=== PATIENT | male | born 1945 | race Caucasian/White ===

== ENCOUNTER 2017-07-16 14:04 | Inpatient (IN) | payer OTHER ==
[~2017-07-16] VITALS: Ht 172.7 cm; Wt 70.9 kg
[~2017-07-16 14:04] MED LIST: ASPI-232 PO; CLOP1TAB5 PO; LSN/2025 PO; METO-551 PO; NITR0.4S UT; OXYC-409 PO; ROSU20TA PO; RXC5 PO; TYLOTC500 PO
[2017-07-16] MEDS ORDERED: SODIUM CHLORIDE 0.9% 1000ML 1,000 ML IV STA (14:24)
--- NOTE | 2017-07-16 14:51 | DIAGNOSTIC IMAGING REPORT ---
CHEST ONE VIEW PORTABLE CLINICAL HISTORY: Weakness, shortness of breath. COMPARISON STUDY: 01/28/2014 FINDINGS: The heart is normal in size. There is no failure. There are increased left basal markings, atelectatic versus inflammatory. There are postsurgical changes of spinal rodding. The right lung is clear. There is no failure. There are no pleural effusions.[ IMPRESSION: Interstitial left basilar opacities, atelectatic versus infectious/inflammatory Electronically signed by: Tanner Ramirez M.D. 07/16/2017 2:50 PM Dictated Date/Time: 07/16/2017 2:49 PM
--- NOTE | 2017-07-16 15:21 | EMERGENCY ROOM VISIT NOTE ---
History Report prepared by Tr: Michael Harp Under the Supervision of: Dr. Jeremias Gil M.D. First contact with patient: 14:16 Chief Complaint: RESPIRATORY PROBLEMS Stated Complaint: CANT BREATHE, WEAK History of Present Illness The patient is a 71 year old male who presents to the Emergency Room with complaints of constant weakness that started two days ago. The patient reports he had back surgery a month ago at [facility] to replace broken rods in his back. He reports that the surgery was performed by Dr. Carcamo. The patient reports that he had a blood transfusion following the surgery. The patient states that he was put in [facility] following his surgery and was released two days ago. He reports that since his release he has been experiencing weakness and shortness of breath. The patient states that his weakness caused him to fall on his right side the other day. He reports that he was unable to get up due to his weakness and was crawling on his hands and knees. The patient states that since the fall he has been experiencing right sided chest pain. He reports that he has also been experiencing diarrhea, which he describes as "black tar". The patient reports that he has not been eating or drinking due to his diarrhea and weakness. He reports he has also been experiencing feet numbness. The patient states he recently had influenza, which he was put in isolation for 5 days for. He reports that he also recently had a pneumothorax, which he had surgery for. The patient states that his cut from his surgery needs to be checked. The patient denies LOC, headache, fevers, chills, diaphoresis, visual changes, neck pain, nausea, vomiting, abdominal pain, back pain, hematochezia, urinary symptoms, lymphadenopathy, rash, or other complaints. He reports he is taking Gabapentin, Plavix, a baby Aspirin, and Lisinopril. Source of History: patient Onset: two days ago Position: other (global) Symptom Intensity: 03/01 Quality: other (global) Timing: constant Associated Symptoms: + chest pain, + SOB, + melena, + diarrhea, + numbness Review of Systems See HPI for pertinent positives and negatives. A total of ten systems were reviewed and were otherwise negative. Past Medical & Surgical Medical Problems: (1) C. difficile colitis (2) Colitis (3) HTN (hypertension) Family History FH: CAD (coronary artery disease) FATHER Social History Smoking Status: Never Smoker Smokeless Tobacco Use: No Alcohol Use: heavy Occupation Status: retired Current/Historical Medications Scheduled Aspirin (Aspir-81), 81 MG PO Q2D Clopidogrel Bisulfate (Plavix), 75 MG PO QAM Fentanyl (Fentanyl), 25 MCG TD Q3D Gabapentin (Neurontin), 300 MG PO TID Metoprolol Tartrate (Lopressor), 50 MG PO BID Mupirocin Calcium (Bactroban Nasal), 1 GM PANKAJ BID Nitroglycerin (Nitrostat), 0.4 MG UT PRN Rosuvastatin Calcium (Crestor), 20 MG PO DAILY Scheduled PRN Acetaminophen (Tylenol), 1,000 MG PO DAILY PRN for PRN Clobetasol Propionate (Clobetasol Propionate), 1 APPL TOP DAILY PRN for scalp irritation Diazepam (Valium), 5 MG PO Q8 PRN for muscle spasms Oxycodone Hcl (Oxycodone Hcl), 20 MG PO Q6 PRN for Pain Sildenafil Citrate (Viagra), 50 MG PO DAILY PRN for erectile dysfunction Allergies Coded Allergies: No Known Allergies (Unverified , 07/16/17) Physical Exam Vital Signs Date Time Temp Pulse Resp B/P (MAP) Pulse Ox O2 Delivery O2 Flow Rate FiO2 07/16/17 17:02 130/58 97 Room Air 07/16/17 16:20 66 19 151/70 100 Room Air 07/16/17 15:25 73 22 138/76 99 Room Air 07/16/17 15:10 100 Room Air 07/16/17 15:09 100 Room Air 07/16/17 14:09 92 18 118/66 99 Room Air Physical Exam GENERAL: Awake, alert, tired-appearing, in no distress HENT: Normocephalic, atraumatic. Oropharynx unremarkable. EYES: Normal conjunctiva. Sclera non-icteric. NECK: Supple. No nuchal rigidity. FROM. No masses. RESPIRATORY: Clear to auscultation. No wheezes. CARDIAC: Normal rate. Normal rhythm. No murmurs. No rubs. Extremities warm and well perfused. Pulses equal. No JVD. GI: Soft, non-distended. Mild diffuse tenderness to palpation. No rebound or guarding. No masses. RECTAL: Dark stool. Heme negative. MUSCULOSKELETAL: Atraumatic. Chest examination reveals no tenderness. The back is symmetrical on inspection without obvious abnormality. There is no CVA tenderness to palpation. No joint edema. LOWER EXTREMITIES: Calves are equal size bilaterally and non-tender. No edema. No discoloration. NEURO: Normal sensorium. Subjective numbness in feet. 4/5 strength bilaterally. SKIN: No rash or jaundice noted. Medical Decision & Procedures ER Provider Diagnostic Interpretation: Radiology results as stated below per my review and radiologist interpretation: CHEST ONE VIEW PORTABLE CLINICAL HISTORY: Weakness, shortness of breath. COMPARISON STUDY: 01/28/2014 FINDINGS: The heart is normal in size. There is no failure. There are increased left basal markings, atelectatic versus inflammatory. There are postsurgical changes of spinal rodding. The right lung is clear. There is no failure. There are no pleural effusions.[ IMPRESSION: Interstitial left basilar opacities, atelectatic versus infectious/inflammatory Electronically signed by: Tanner Ramirez M.D. 07/16/2017 2:50 PM Dictated Date/Time: 07/16/2017 2:[address] ABD/PELVIS IV CONTRAST ONLY CLINICAL HISTORY: diffuse abd pain, weakness COMPARISON STUDY: May 14, 2015 TECHNIQUE: Following the IV administration of 100 mL of Optiray-320, CT scan of the abdomen and pelvis was performed from the lung bases to the proximal femurs. Images are reviewed in the axial, sagittal, and coronal planes. IV contrast was administered without complication. A dose lowering technique was utilized adhering to the principles of ALARA. CT DOSE: FINDINGS: Lower chest: There is a small left pleural effusion with left basilar atelectatic changes Liver: The contrast-enhanced liver is normal in size, contour, and attenuation. There is no intrahepatic biliary ductal dilatation. The hepatic veins and portal veins are patent. Gallbladder: Cholelithiasis Spleen: The spleen is elongated measuring 16 cm in length Pancreas: Unremarkable. Adrenal glands: Unremarkable. Kidneys: There is symmetric renal cortical enhancement. The kidneys are normal in size without hydronephrosis. Bowel: There are no transition zones indicate bowel obstruction. There is pandiverticulosis. There is mild diffuse colonic wall thickening most pronounced within the left and ascending colon. Peritoneum: There is no intraperitoneal free air or abdominal ascites. Vasculature: The abdominal aorta is normal in course and caliber. Adenopathy: There is a 12 mm hypodense structure located lateral to the right common iliac artery. This likely represents a hypodense lymph node Pelvic viscera: The prostate is mildly enlarged Skeletal structures: There are extensive postsurgical changes present within the spine IMPRESSION: 1. Diffuse colonic wall thickening consistent with a pancolitis 2. No evidence of bowel obstruction. No evidence of free air 3. Normal appendix 5. Cholelithiasis 6. Mild splenomegaly 7. Small left pleural effusion Electronically signed by: Tanner Ramirez M.D. 07/16/2017 5:10 PM Dictated Date/Time: 07/16/2017 5:[address] ANGIOGRAM OF THE CHEST CLINICAL HISTORY: Shortness of breath. Weakness. COMPARISON STUDY: No previous studies for comparison. TECHNIQUE: Following the IV administration of mL of Optiray-320, CT angiogram of the thorax was performed from the thoracic inlet to the lung bases utilizing the pulmonary embolus protocol. Images are reviewed in the axial, sagittal, and coronal planes. IV contrast was administered without complication. MIP imaging was performed. A dose lowering technique was utilized adhering to the principles of ALARA. CT DOSE: 860.47 mGy.cm FINDINGS: No pathologically enlarged axillary mediastinal or hilar lymph nodes were visualized. There was no evidence of thoracic aortic dilatation. There were no pulmonary artery filling defects to indicate acute pulmonary embolism. There is a small left pleural effusion. There are bibasilar airspace opacities left greater than right, likely atelectatic. There are subtle tree-in-bud opacities within the right upper lobe, likely inflammatory/postinflammatory. There are postsurgical changes present within the thoracic spine IMPRESSION: 1. No evidence of acute pulmonary embolism 2. Small left pleural effusion 3. Mild basilar atelectatic changes 4. Tree-in-bud opacities within the right upper lobe likely inflammatory/postinflammatory Electronically signed by: Tanner Ramirez M.D. 07/16/2017 4:42 PM Dictated Date/Time: 07/16/2017 4:26 PM Laboratory Results 07/16/17 15:17 Red Blood Count 3.47, Mean Corpuscular Volume 84.1, Mean Corpuscular Hemoglobin 27.1, Mean Corpuscular Hemoglobin Concent 32.2, Mean Platelet Volume 10.0, Neutrophils (%) (Auto) 86.3, Lymphocytes (%) (Auto) 7.4, Monocytes (%) (Auto) 5.7, Eosinophils (%) (Auto) 0.1, Basophils (%) (Auto) 0.1, Neutrophils # (Auto) 6.51, Lymphocytes # (Auto) 0.56, Monocytes # (Auto) 0.43, Eosinophils # (Auto) 0.01, Basophils # (Auto) 0.01 07/16/17 15:17 Test 07/16/17 15:15 07/16/17 15:17 Procalcitonin 0.09 ng/ml (0-0.5) White Blood Count 7.55 K/uL (4.8-10.8) Red Blood Count 3.47 M/uL (4.7-6.1) Hemoglobin 9.4 g/dL (14.0-18.0) Hematocrit 29.2 % (42-52) Mean Corpuscular Volume 84.1 fL (80-100) Mean Corpuscular Hemoglobin 27.1 pg (25-34) Mean Corpuscular Hemoglobin Concent 32.2 g/dl (32-36) Platelet Count 277 K/uL (130-400) Mean Platelet Volume 10.0 fL (7.4-10.4) Neutrophils (%) (Auto) 86.3 % Lymphocytes (%) (Auto) 7.4 % Monocytes (%) (Auto) 5.7 % Eosinophils (%) (Auto) 0.1 % Basophils (%) (Auto) 0.1 % Neutrophils # (Auto) 6.51 K/uL (1.4-6.5) Lymphocytes # (Auto) 0.56 K/uL (1.2-3.4) Monocytes # (Auto) 0.43 K/uL (0.11-0.59) Eosinophils # (Auto) 0.01 K/uL (0-0.5) Basophils # (Auto) 0.01 K/uL (0-0.2) RDW Standard Deviation 46.2 fL (36.4-46.3) RDW Coefficient of Variation 14.7 % (11.5-14.5) Immature Granulocyte % (Auto) 0.4 % Immature Granulocyte # (Auto) 0.03 K/uL (0.00-0.02) Prothrombin Time 12.7 SECONDS (9.0-12.0) Prothromb Time International Ratio 1.2 (0.9-1.1) Activated Partial Thromboplast Time 25.4 SECONDS (21.0-31.0) Partial Thromboplastin Ratio 1.0 Anion Gap 9.0 mmol/L (3-11) Estimated GFR () 115.0 Estimated GFR (Non- 99.2 BUN/Creatinine Ratio 16.0 (10-20) Calcium Level 8.8 mg/dl (8.5-10.1) Magnesium Level 2.4 mg/dl (1.8-2.4) Total Bilirubin 0.6 mg/dl (0.2-1) Direct Bilirubin 0.1 mg/dl (0-0.2) Aspartate Amino Transf (AST/SGOT) 11 U/L (15-37) Alanine Aminotransferase (ALT/SGPT) 17 U/L (12-78) Alkaline Phosphatase 94 U/L (45-117) Total Creatine Kinase 23 U/L (39-308) Creatine Kinase MB 0.6 ng/ml (0.5-3.6) Creatine Kinase MB Ratio 2.6 (0-3.0) Troponin I < 0.015 ng/ml (0-0.045) Total Protein 6.7 gm/dl (6.4-8.2) Albumin 2.9 gm/dl (3.4-5.0) Lipase 266 U/L (73-393) Thyroid Stimulating Hormone (TSH) 0.193 uIu/ml (0.300-4.500) Laboratory results reviewed by me Medications Administered Medications (Trade) Dose Ordered Sig/Ananth Route Start Time Stop Time Status Last Admin Dose Admin Sodium Chloride 1,000 ml @ 125 mls/hr Q8H STAT IV 07/16/17 14:24 07/16/17 19:56 DC 07/16/17 14:24 125 MLS/HR Metronidazole (Flagyl / Nss) 500 mg NOW STAT IV 07/16/17 17:23 07/16/17 17:25 DC 07/16/17 18:28 500 MG ECG Per My Interpretation Indication: weakness Rate (beats per minute): 77 Rhythm: normal sinus Findings: no acute ischemic change, no ectopy, other (Prolonged QT) ED Course 1422: The patient was evaluated in room C04. A complete history and physical exam was performed. 1424: Ordered Sodium Chloride 1000 ml @ 125 mls/hr IV. 1710: I reevaluated the patient and updated him on his results. He is waiting on his CT reports. 1723: Ordered Metronidazole 500 mg IV. 1735: I reevaluated the patient and updated him on his results. I discussed the treatment plan, which he agrees to. The patient will be further evaluated. 1738: I discussed the patients case with Kenney Su. She understands the patients condition and agrees to accept the patient. The patient will be further evaluated. Medical Decision Triage Nursing notes reviewed. The patient's presentation and history were concerning for weakness, breathing issues, and recent surgery. Etiologies such as metabolic, infection, hypo/hyperglycemia, electrolyte abnormalities, PE, anemia, cardiac sources, intracerebral event, toxicologic, neurologic, as well as others were entertained. The patient was evaluated. He noted having black stools that his rectal examination did not show any Hemoccult positive findings. The patient had abdominal tenderness. He seemed somewhat pale. Blood work, type and screen, urinalysis, imaging and ECG were ordered. The patient had a mild anemia but no leukocytosis on CBC. His cardiac panel was unremarkable. The patient had no evidence of PE or significant pneumonia on CT imaging of the chest. CT of the abdomen and pelvis did reveal a pancolitis. The patient was given a dose of IV Flagyl. He states that he had vancomycin for an unknown amount of time secondary to being diagnosed with C. difficile during his recent hospitalization. Consultation was made with the hospitalist service. The patient was evaluated in the Emergency Room for further management. Pro- calcitonin and lactate were added onto his labs at the request of the hospitalist service. These were unremarkable. Medication Reconcilliation Current Medication List: was personally reviewed by me Blood Pressure Screening Patient's blood pressure: Normal blood pressure Consults Time Called: 1737 Consulting Physician: Kenney Su Returned Call: 1738 I discussed the patients case with Kenney Su. She understands the patients condition and agrees to accept the patient. The patient will be further evaluated. Impression Primary Impression: Colitis Additional Impression: Weakness Scribe Attestation The scribe's documentation has been prepared under my direction and personally reviewed by me in its entirety. I confirm that the note above accurately reflects all work, treatment, procedures, and medical decision making performed by me. Departure Information Dispostion Being Evaluated By Hospitalist Referrals Tank Multani D.O. (PCP) Patient Instructions My [facility] Problem Qualifiers
[2017-07-16 15:35] LABS: BASO % 0.1 %; BASO ABS # 0.01 K/uL (0-0.2); EOS % 0.1 %; EOS ABS # 0.01 K/uL (0-0.5); HEMATOCRIT 29.2 % (42-52); HEMOGLOBIN 9.4 g/dL (14.0-18.0); IG# 0.03 K/uL (0.00-0.02); LYMPH % 7.4 %; LYMPH ABS # 0.56 K/uL (1.2-3.4); MEAN CELL VOLUME 84.1 fL (80-100); MEAN CORPUSCULAR HEMOGLOBIN 27.1 pg (25-34); MEAN CORPUSCULAR HGB CONC 32.2 g/dl (32-36); MONO % 5.7 %; MONO ABS # 0.43 K/uL (0.11-0.59); NEUT % 86.3 %; NEUT ABS # 6.51 K/uL (1.4-6.5); PLATELET COUNT 277 K/uL (130-400); RED CELL DISTRIBUTION WIDTH CV 14.7 % (11.5-14.5); RED CELL DISTRIBUTION WIDTH SD 46.2 fL (36.4-46.3); WHITE BLOOD COUNT 7.55 K/uL (4.8-10.8)
[2017-07-16 15:44] LABS: INR 1.2 (0.9-1.1); PTT PATIENT 25.4 SECONDS (21.0-31.0)
[2017-07-16 15:52] LABS: ALBUMIN 2.9 gm/dl (3.4-5.0); ALT/SGPT 17 U/L (12-78); BLOOD UREA NITROGEN 10 mg/dl (7-18); CALCIUM 8.8 mg/dl (8.5-10.1); CARBON DIOXIDE 29 mmol/L (21-32); CREATININE 0.64 mg/dl (0.60-1.40); GLUCOSE 94 mg/dl (70-99); LIPASE 266 U/L (73-393); POTASSIUM 3.3 mmol/L (3.5-5.1); SODIUM 141 mmol/L (136-145)
[2017-07-16 16:01] LABS: ALKALINE PHOSPHATASE 94 U/L (45-117); AST/SGOT 11 U/L (15-37); CKMB 0.6 ng/ml (0.5-3.6); TOTAL PROTEIN 6.7 gm/dl (6.4-8.2)
[2017-07-16] MEDS ORDERED: DIAZ-165 PO (16:01)
[2017-07-16] MEDS ORDERED: GABA-1218 PO (16:01)
[2017-07-16] MEDS ORDERED: MUPIOIN4 NAE (16:01)
[2017-07-16] MEDS ORDERED: [UNRECOGNIZED DRUG - CODE] TOP (16:01)
[2017-07-16] MEDS ORDERED: FNTTP25 TD (16:01)
[2017-07-16] MEDS ORDERED: OXYC20TA32 PO (16:01)
[2017-07-16] MEDS ORDERED: SILD100T PO (16:08)
--- NOTE | 2017-07-16 16:44 | DIAGNOSTIC IMAGING REPORT ---
CT ANGIOGRAM OF THE CHEST CLINICAL HISTORY: Shortness of breath. Weakness. COMPARISON STUDY: No previous studies for comparison. TECHNIQUE: Following the IV administration of mL of Optiray-320, CT angiogram of the thorax was performed from the thoracic inlet to the lung bases utilizing the pulmonary embolus protocol. Images are reviewed in the axial, sagittal, and coronal planes. IV contrast was administered without complication. MIP imaging was performed. A dose lowering technique was utilized adhering to the principles of ALARA. CT DOSE: 860.47 mGy.cm FINDINGS: No pathologically enlarged axillary mediastinal or hilar lymph nodes were visualized. There was no evidence of thoracic aortic dilatation. There were no pulmonary artery filling defects to indicate acute pulmonary embolism. There is a small left pleural effusion. There are bibasilar airspace opacities left greater than right, likely atelectatic. There are subtle tree-in-bud opacities within the right upper lobe, likely inflammatory/postinflammatory. There are postsurgical changes present within the thoracic spine IMPRESSION: 1. No evidence of acute pulmonary embolism 2. Small left pleural effusion 3. Mild basilar atelectatic changes 4. Tree-in-bud opacities within the right upper lobe likely inflammatory/postinflammatory Electronically signed by: Tanner Ramirez M.D. 07/16/2017 4:42 PM Dictated Date/Time: 07/16/2017 4:26 PM
[2017-07-16] MEDS ORDERED: OPTIRAY 320 IV PRN (16:45)
--- NOTE | 2017-07-16 17:11 | DIAGNOSTIC IMAGING REPORT ---
CT ABD/PELVIS IV CONTRAST ONLY CLINICAL HISTORY: diffuse abd pain, weakness COMPARISON STUDY: May 14, 2015 TECHNIQUE: Following the IV administration of 100 mL of Optiray-320, CT scan of the abdomen and pelvis was performed from the lung bases to the proximal femurs. Images are reviewed in the axial, sagittal, and coronal planes. IV contrast was administered without complication. A dose lowering technique was utilized adhering to the principles of ALARA. CT DOSE: FINDINGS: Lower chest: There is a small left pleural effusion with left basilar atelectatic changes Liver: The contrast-enhanced liver is normal in size, contour, and attenuation. There is no intrahepatic biliary ductal dilatation. The hepatic veins and portal veins are patent. Gallbladder: Cholelithiasis Spleen: The spleen is elongated measuring 16 cm in length Pancreas: Unremarkable. Adrenal glands: Unremarkable. Kidneys: There is symmetric renal cortical enhancement. The kidneys are normal in size without hydronephrosis. Bowel: There are no transition zones indicate bowel obstruction. There is pandiverticulosis. There is mild diffuse colonic wall thickening most pronounced within the left and ascending colon. Peritoneum: There is no intraperitoneal free air or abdominal ascites. Vasculature: The abdominal aorta is normal in course and caliber. Adenopathy: There is a 12 mm hypodense structure located lateral to the right common iliac artery. This likely represents a hypodense lymph node Pelvic viscera: The prostate is mildly enlarged Skeletal structures: There are extensive postsurgical changes present within the spine IMPRESSION: 1. Diffuse colonic wall thickening consistent with a pancolitis 2. No evidence of bowel obstruction. No evidence of free air 3. Normal appendix 5. Cholelithiasis 6. Mild splenomegaly 7. Small left pleural effusion Electronically signed by: Tanner Ramirez M.D. 07/16/2017 5:10 PM Dictated Date/Time: 07/16/2017 5:05 PM
[2017-07-16] MEDS ORDERED: METRONIDAZOLE 500MG / 100ML NSS IV STA (17:23)
[2017-07-16 19:45] VITALS: BP 147/60; PULSE 58; TEMP 36.6; O2SAT 100; Ht 172.7 cm; Wt 70.9 kg
[2017-07-16] MEDS ORDERED: ONDANSETRON INJ 2 MG/ML 2 ML VIAL IV PRN (20:00)
[2017-07-16 20:20] VITALS: BP 147/60; PULSE 57; TEMP 36.6; O2SAT 100
[2017-07-16] MEDS: SODIUM CHLORIDE 0.9% 1000ML 1,000 ML IV SCH (22:19)
[2017-07-16] MEDS: VANCOMYCIN HCL 250 MG/5 ML SOLN PO SCH (22:19)
[2017-07-16] MEDS: RASPBERRY SYRUP 5 ML UDP PO SCH (22:19)
[2017-07-16 23:40] VITALS: BP 120/62; PULSE 63; TEMP 37.1; O2SAT 97
[2017-07-17] MEDS: POTASSIUM CHLR 10 MEQ / WTR 10 MEQ in PREMIXED WATER 100 ML IV SCH ×3 (00:58→03:11)
--- NOTE | 2017-07-17 01:00 | History and Physical ---
History & Physical Date & Time of Service: Jul 16, 2017 at 00:54 Chief Complaint: C. Difficile Colitis, Colitis Primary Care Physician: Tank Multani D.O. History of Present Illness Source: patient This is 71 yo M with complicated medial hx of Extensive back surgery , prior hx of C diff, polyneuropathy peripheral artery disease , CAD pt was admitted to [facility] [place] [facility] from 06/13/17-06/22/17 for extensive back surgery by Dr Orlando and Dr Carcamo , pt developed C diff post op , completed oral vancomycin course was at ,[facility] 06/22/17-07/07/17 after being discharged form rehab , pt reports poor appetite , generalized weakness , fatigue for the past 2-3 days had dark loose watery stool 5-6 times a day , associated with abdominal cramps today pt sustained a fall while trying to get out of bed , felt that he does not have any strength , did not sustain and injury in the ER pt Continues to have liquid black stool complains of diffuse abdominal pain CT abdomen /pelvis shows -pancolitis Family History FH: CAD (coronary artery disease) FATHER Social History Smoking Status: Former Smoker Smokeless Tobacco Use: No Occupational Status: retired Immunizations History of Influenza Vaccine: Yes Influenza Vaccine Date: Feb 13, 2012 History of Tetanus Vaccine?: Unknown Tetanus Immunization Date: Mar 15, 2009 History of Pneumococcal: No History of Hepatitis B Vaccine: Unknown Allergies Coded Allergies: No Known Allergies (Unverified , 07/16/17) Home Medications Scheduled Aspirin (Aspir-81), 81 MG PO Q2D Clopidogrel Bisulfate (Plavix), 75 MG PO QAM Fentanyl (Fentanyl), 25 MCG TD Q3D Gabapentin (Neurontin), 300 MG PO TID Metoprolol Tartrate (Lopressor), 50 MG PO BID Mupirocin Calcium (Bactroban Nasal), 1 GM PANKAJ BID Nitroglycerin (Nitrostat), 0.4 MG UT PRN Rosuvastatin Calcium (Crestor), 20 MG PO DAILY Scheduled PRN Acetaminophen (Tylenol), 1,000 MG PO DAILY PRN for PRN Clobetasol Propionate (Clobetasol Propionate), 1 APPL TOP DAILY PRN for scalp irritation Diazepam (Valium), 5 MG PO Q8 PRN for muscle spasms Oxycodone Hcl (Oxycodone Hcl), 20 MG PO Q6 PRN for Pain Sildenafil Citrate (Viagra), 50 MG PO DAILY PRN for erectile dysfunction Review of Systems Constitutional: + chills, + weight loss (30 lbs since back surgery in 06/13/17 ) , + weakness, + fatigue Respiratory: + shortness of breath, + dyspnea on exertion, + dyspnea at rest Abdomen: + nausea, + vomiting, + diarrhea (dark liquid stool multiple episodes at night ), + GI bleeding (dark /tarry liquid stool ) Neurologic: + weakness, + numbness/tingling, + vertigo, + balance problems Psychiatric: + depression symptoms Endocrine: + fatigue, + excessive thirst Physical Exam Vital Signs Date Time Temp Pulse Resp B/P (MAP) Pulse Ox O2 Delivery O2 Flow Rate FiO2 07/16/17 23:40 37.1 63 22 120/62 (81) 97 Room Air 07/16/17 20:20 36.6 57 20 147/60 (89) 100 Room Air 07/16/17 19:45 36.6 58 20 147/60 100 Room Air 07/16/17 19:29 54 19 150/65 99 07/16/17 19:04 58 20 150/65 97 Room Air 07/16/17 17:02 130/58 97 Room Air 07/16/17 16:20 66 19 151/70 100 Room Air 07/16/17 15:25 73 22 138/76 99 Room Air 07/16/17 15:10 100 Room Air 07/16/17 15:09 100 Room Air 07/16/17 14:09 92 18 118/66 99 Room Air General Appearance: + pertinent finding (very cachectic /chronically ill appearing ) Head: normocephalic, atraumatic Eyes: sclerae normal ENT: + pertinent finding (very dry oral mucosa ) Neck: no carotid bruits Respiratory/Chest: lungs clear, normal breath sounds Cardiovascular: regular rate, rhythm, no edema Abdomen/GI: + pertinent finding (scaphoid, diffuse tenderness on palpation , hyperactive bowel sound ) Neurologic/Psych: no motor/sensory deficits, alert Skin: + pallor Diagnostics Laboratory Results Results Past 24 Hours Test 07/16/17 15:15 07/16/17 15:17 07/16/17 20:27 Range/Units Procalcitonin 0.09 0-0.5 ng/ml White Blood Count 7.55 4.8-10.8 K/uL Red Blood Count 3.47 4.7-6.1 M/uL Hemoglobin 9.4 14.0-18.0 g/dL Hematocrit 29.2 42-52 % Mean Corpuscular Volume 84.1 80-100 fL Mean Corpuscular Hemoglobin 27.1 25-34 pg Mean Corpuscular Hemoglobin Concent 32.2 32-36 g/dl Platelet Count 277 130-400 K/uL Mean Platelet Volume 10.0 7.4-10.4 fL Neutrophils (%) (Auto) 86.3 % Lymphocytes (%) (Auto) 7.4 % Monocytes (%) (Auto) 5.7 % Eosinophils (%) (Auto) 0.1 % Basophils (%) (Auto) 0.1 % Neutrophils # (Auto) 6.51 1.4-6.5 K/uL Lymphocytes # (Auto) 0.56 1.2-3.4 K/uL Monocytes # (Auto) 0.43 0.11-0.59 K/uL Eosinophils # (Auto) 0.01 0-0.5 K/uL Basophils # (Auto) 0.01 0-0.2 K/uL RDW Standard Deviation 46.2 36.4-46.3 fL RDW Coefficient of Variation 14.7 11.5-14.5 % Immature Granulocyte % (Auto) 0.4 % Immature Granulocyte # (Auto) 0.03 0.00-0.02 K/uL Prothrombin Time 12.7 9.0-12.0 SECONDS Prothromb Time International Ratio 1.2 0.9-1.1 Activated Partial Thromboplast Time 25.4 21.0-31.0 SECONDS Partial Thromboplastin Ratio 1.0 Sodium Level 141 136-145 mmol/L Potassium Level 3.3 3.5-5.1 mmol/L Chloride Level 103 98-107 mmol/L Carbon Dioxide Level 29 21-32 mmol/L Anion Gap 9.0 3-11 mmol/L Blood Urea Nitrogen 10 7-18 mg/dl Creatinine 0.64 0.60-1.40 mg/dl Estimated GFR () 115.0 Estimated GFR (Non- 99.2 BUN/Creatinine Ratio 16.0 10-20 Random Glucose 94 70-99 mg/dl Calcium Level 8.8 8.5-10.1 mg/dl Magnesium Level 2.4 1.8-2.4 mg/dl Total Bilirubin 0.6 0.2-1 mg/dl Direct Bilirubin 0.1 0-0.2 mg/dl Aspartate Amino Transf (AST/SGOT) 11 15-37 U/L Alanine Aminotransferase (ALT/SGPT) 17 12-78 U/L Alkaline Phosphatase 94 45-117 U/L Total Creatine Kinase 23 39-308 U/L Creatine Kinase MB 0.6 0.5-3.6 ng/ml Creatine Kinase MB Ratio 2.6 0-3.0 Troponin I < 0.015 0-0.045 ng/ml Total Protein 6.7 6.4-8.2 gm/dl Albumin 2.9 3.4-5.0 gm/dl Lipase 266 73-393 U/L Thyroid Stimulating Hormone (TSH) 0.193 0.300-4.500 uIu/ml Lactic Acid Level 1.1 0.4-2.0 mmol/L Microbiology Results 07/16/17 Blood Culture, Received Pending 07/16/17 Blood Culture, Received Pending Diagnostic Radiology CT ABDOMEN /PELVIS : IMPRESSION: 1. Diffuse colonic wall thickening consistent with a pancolitis 2. No evidence of bowel obstruction. No evidence of free air 3. Normal appendix 5. Cholelithiasis 6. Mild splenomegaly 7. Small left pleural effusion CT CHEST WITH CONTRAST : IMPRESSION: 1. No evidence of acute pulmonary embolism 2. Small left pleural effusion 3. Mild basilar atelectatic changes 4. Tree-in-bud opacities within the right upper lobe likely inflammatory/postinflammatory Impression Assessment and Plan DARK STOOL R/O GI BLEED -presents with multiple episodes of dark watery stool for past 2-3 days ordered for stool for heme occult , C.diff, stool culture hold Aspirin , Plavix ordered for IV Protonix /GI eval requested serial H&H ordered CT ABDOMEN FINDING OF TRUJILLO COLITIS /HX OF C DIFF presents with poor appetite , generalized weakness, diarrhea /abdominal pain -follow stool culture , C diff NPO stared empirically with PO Vancomycin /IV Flagyl GI eval requested HX OF CAD : S/p 3 drug eluting stent in RCA by Dr Dugan in 03/15/2011 no complain of chest pain hold aspirin /Plavix for concern of GI bleed /dark stool EXTENSIVE BACK SURGERY FOR CORRECTION OF KYPHOSIS : had prolong recovery at [facility] post op course was complicated by Pneumothorax on Left s/p chest tube placement C diff colitis surgical wound on back healing well cont PT/OT HTN : episode of hypotension DYSLIPIDEMIA : hold statin for NPO status -colitis /anemia /dark stool PERIPHERAL VASCULAR DISEASE Hold aspirin /Plavix for concern for GI bleed SEVERE PROTEIN CALORIE MALNUTRITION reports of loss of 30 lb in past 1.5 months reports of poor appetite , ongoing diarrhea BMI 23 Dietary consult requested FULL CODE DVT PROPHYLAXIS : Scd and teds avoid anticoagulation due to concern for GI bleed /anemia DISPOSITION: recently discharged from [facility] mentions of significant deconditioning /fall PT/OT eval requested Social service consult for discharge planning Level of Care Telemetry Advanced Directives Existing Living Will: No Existing Power of Floor Tiling Professional: No Resuscitation Status FULL RESUSCITATION VTE Prophylaxis VTE Risk Assessment Done? Y/N: Yes Risk Level: Moderate Given or contraindicated: T.E.D. Stockings, SCD's
[2017-07-17] MEDS ORDERED: FENTANYL 25 MCG/HR TDSY TD SCH (01:30)
[2017-07-17] MEDS ORDERED: NITROGLYCERIN 0.4 MG SL PER TAB CHARGE UT SCH (01:30)
[2017-07-17] MEDS ORDERED: DIAZEPAM 5MG TAB PO PRN (01:30)
[2017-07-17] MEDS ORDERED: PANTOprazole INJ 80 MG in DEXTROSE 5% 100ML IV SCH (01:30)
[2017-07-17] MEDS: METRONIDAZOLE / NSS 500 MG in PREMIXED NSS 100 ML IV SCH ×3 (02:00→17:45)
[2017-07-17] MEDS: PANTOprazole INJ 40 MG in DEXTROSE 5% 100ML IV SCH ×4 (03:12→20:08)
[2017-07-17 04:24] VITALS: BP 125/64; PULSE 66; TEMP 37; O2SAT 95
[2017-07-17] MEDS: VANCOMYCIN HCL 250 MG/5 ML SOLN PO SCH ×3 (05:37→17:47)
[2017-07-17] MEDS: RASPBERRY SYRUP 5 ML UDP PO SCH ×3 (05:37→17:45)
[2017-07-17 06:28] LABS: HEMATOCRIT 24.7 % (42-52); HEMOGLOBIN 7.9 g/dL (14.0-18.0); MEAN CELL VOLUME 83.7 fL (80-100); MEAN CORPUSCULAR HEMOGLOBIN 26.8 pg (25-34); MEAN PLATELET VOLUME 9.4 fL (7.4-10.4); PLATELET COUNT 237 K/uL (130-400); RED CELL DISTRIBUTION WIDTH CV 14.8 % (11.5-14.5); RED CELL DISTRIBUTION WIDTH SD 45.2 fL (36.4-46.3); WHITE BLOOD COUNT 6.19 K/uL (4.8-10.8)
[2017-07-17 07:03] LABS: ALBUMIN 2.3 gm/dl (3.4-5.0); CALCIUM 8.3 mg/dl (8.5-10.1); CREATININE 0.48 mg/dl (0.60-1.40)
[2017-07-17 07:07] LABS: PHOSPHORUS 2.6 mg/dl (2.5-4.9); TOTAL PROTEIN 5.5 gm/dl (6.4-8.2)
[2017-07-17 07:33] VITALS: BP 129/59; PULSE 61; TEMP 36.6; O2SAT 96
[2017-07-17] MEDS: SODIUM CHLORIDE 0.9% 1000ML 1,000 ML IV SCH (07:48)
[2017-07-17] MEDS: CHECK FENTANYL PATCH PLACEMENT SCH ×2 (07:49→16:01)
[2017-07-17] MEDS: MUPIROCIN 2% OINT 22 GM TUBE INTNAS SCH ×2 (07:51→20:06)
[2017-07-17] MEDS ORDERED: METOPROLOL TARTRATE 50 MG TAB PO SCH (09:00)
--- NOTE | 2017-07-17 09:27 | DIAGNOSTIC IMAGING REPORT ---
ABDOMEN 2 VIEWS CLINICAL HISTORY: Pancolitis. Evaluate for toxic megacolon COMPARISON STUDY: CT scan dated 07/16/2017 FINDINGS: There are extensive postsurgical changes present within the spine. There is no pathologic bowel dilatation. There is no free air. There are no transition zone to indicate bowel obstruction. IMPRESSION: Unremarkable bowel gas pattern. Electronically signed by: Tanner Ramirez M.D. 07/17/2017 9:26 AM Dictated Date/Time: 07/17/2017 9:25 AM
[2017-07-17] MEDS: FENTANYL PATCH REMOVE & WASTE SCH (09:41)
[2017-07-17] MEDS: FENTANYL 25 MCG/HR TDSY TD SCH (09:41)
[2017-07-17] MEDS: POTASSIUM CHLORIDE 20 MEQ TABCR PO SCH ×2 (10:41→17:46)
--- NOTE | 2017-07-17 11:24 | Progress Note ---
Medicine Progress Note Date & Time of Visit: Jul 17, 2017 at 11:09. Subjective 71 yo M s/p recent back surgery and rehab program presents with increased weakness and diarrhea after completing a course of vancomycin for c-diff colitis. -abd pain present -diarrhea present with TMTC BMs. -currently NPO -denies CP or SOB -very weak generally Objective Last 8 Hrs Date Time Temp Pulse Resp B/P (MAP) Pulse Ox O2 Delivery O2 Flow Rate FiO2 07/17/17 08:00 Room Air 07/17/17 07:33 36.6 61 18 129/59 (82) 96 Room Air 07/17/17 04:24 37.0 66 20 125/64 (84) 95 Room Air 07/17/17 04:00 Room Air Physical Exam: GEN: WNWD, in no acute distress, alert and appropriate HEENT: NC/AT, PERRL, normal sclerae, MMM CARDIO: reg rate, S1/2 heard without m/g/r LUNGS: CTA bilaterally, no crackles, rales or wheezes, good diaphragmatic excursion ABD: soft, diffuse general tenderness, non-distended, no rebound or guarding, + BS EXTREMITY: RP and DP palpable 2+ bilat, no LE swelling or edema, extremities are warm and well-perfused L ankle: decreased flexion/extension/circumduction. Appears slightly swollen , TTP on bilateral malleoli. R ankle: normal ROM and no TTP NEURO: CN 2-12 grossly intact, sensation intact throughout MUSC: 5/5 strength throughout, no gross focal deficits SKIN: warm and dry, well healed scar down entire length of back vertically. Laboratory Results: 07/17/17 06:17 07/17/17 06:17 Test 07/16/17 15:15 07/16/17 15:17 07/17/17 06:17 Procalcitonin 0.09 ng/ml (0-0.5) Immature Granulocyte % (Auto) 0.4 % White Blood Count 7.55 K/uL (4.8-10.8) Red Blood Count 3.47 M/uL (4.7-6.1) 2.95 M/uL (4.7-6.1) Hemoglobin 9.4 g/dL (14.0-18.0) Hematocrit 29.2 % (42-52) Mean Corpuscular Volume 84.1 fL (80-100) 83.7 fL (80-100) Mean Corpuscular Hemoglobin 27.1 pg (25-34) 26.8 pg (25-34) Mean Corpuscular Hemoglobin Concent 32.2 g/dl (32-36) 32.0 g/dl (32-36) Platelet Count 277 K/uL (130-400) Mean Platelet Volume 10.0 fL (7.4-10.4) 9.4 fL (7.4-10.4) Neutrophils (%) (Auto) 86.3 % Lymphocytes (%) (Auto) 7.4 % Monocytes (%) (Auto) 5.7 % Eosinophils (%) (Auto) 0.1 % Basophils (%) (Auto) 0.1 % Neutrophils # (Auto) 6.51 K/uL (1.4-6.5) Lymphocytes # (Auto) 0.56 K/uL (1.2-3.4) Monocytes # (Auto) 0.43 K/uL (0.11-0.59) Eosinophils # (Auto) 0.01 K/uL (0-0.5) Basophils # (Auto) 0.01 K/uL (0-0.2) Immature Granulocyte # (Auto) 0.03 K/uL (0.00-0.02) Prothrombin Time 12.7 SECONDS (9.0-12.0) Prothromb Time International Ratio 1.2 (0.9-1.1) Activated Partial Thromboplast Time 25.4 SECONDS (21.0-31.0) Partial Thromboplastin Ratio 1.0 Total Creatine Kinase 23 U/L (39-308) Creatine Kinase MB 0.6 ng/ml (0.5-3.6) Creatine Kinase MB Ratio 2.6 (0-3.0) Troponin I < 0.015 ng/ml (0-0.045) Lipase 266 U/L (73-393) Thyroid Stimulating Hormone (TSH) 0.193 uIu/ml (0.300-4.500) RDW Standard Deviation 45.2 fL (36.4-46.3) RDW Coefficient of Variation 14.8 % (11.5-14.5) Anion Gap 9.0 mmol/L (3-11) Est Creatinine Clear Calc Drug Dose 138.5 ml/min Estimated GFR () 129.4 Estimated GFR (Non- 111.7 BUN/Creatinine Ratio 16.8 (10-20) Lactic Acid Level 0.4 mmol/L (0.4-2.0) Calcium Level 8.3 mg/dl (8.5-10.1) Phosphorus Level 2.6 mg/dl (2.5-4.9) Magnesium Level 2.2 mg/dl (1.8-2.4) Total Bilirubin 0.7 mg/dl (0.2-1) Direct Bilirubin 0.2 mg/dl (0-0.2) Aspartate Amino Transf (AST/SGOT) 8 U/L (15-37) Alanine Aminotransferase (ALT/SGPT) 12 U/L (12-78) Alkaline Phosphatase 78 U/L (45-117) Total Protein 5.5 gm/dl (6.4-8.2) Albumin 2.3 gm/dl (3.4-5.0) Globulin 3.2 gm/dl (2.5-4.0) Albumin/Globulin Ratio 0.7 (0.9-2) Date/Time Source Procedure Growth Status 07/16/17 15:18 Blood Blood Culture Pending Received 07/17/17 08:30 Stool C.difficile Toxin B Gene (PCR) - Final Positive for C. difficile toxin B gene Complete Last 24 Hours Test 07/16/17 15:15 07/16/17 15:17 07/16/17 20:27 07/17/17 06:17 Procalcitonin 0.09 ng/ml White Blood Count 7.55 K/uL 6.19 K/uL Red Blood Count 3.47 M/uL 2.95 M/uL Hemoglobin 9.4 g/dL 7.9 g/dL Hematocrit 29.2 % 24.7 % Mean Corpuscular Volume 84.1 fL 83.7 fL Mean Corpuscular Hemoglobin 27.1 pg 26.8 pg Mean Corpuscular Hemoglobin Concent 32.2 g/dl 32.0 g/dl Platelet Count 277 K/uL 237 K/uL Mean Platelet Volume 10.0 fL 9.4 fL Neutrophils (%) (Auto) 86.3 % Lymphocytes (%) (Auto) 7.4 % Monocytes (%) (Auto) 5.7 % Eosinophils (%) (Auto) 0.1 % Basophils (%) (Auto) 0.1 % Neutrophils # (Auto) 6.51 K/uL Lymphocytes # (Auto) 0.56 K/uL Monocytes # (Auto) 0.43 K/uL Eosinophils # (Auto) 0.01 K/uL Basophils # (Auto) 0.01 K/uL RDW Standard Deviation 46.2 fL 45.2 fL RDW Coefficient of Variation 14.7 % 14.8 % Immature Granulocyte % (Auto) 0.4 % Immature Granulocyte # (Auto) 0.03 K/uL Prothrombin Time 12.7 SECONDS Prothromb Time International Ratio 1.2 Activated Partial Thromboplast Time 25.4 SECONDS Partial Thromboplastin Ratio 1.0 Sodium Level 141 mmol/L 142 mmol/L Potassium Level 3.3 mmol/L 3.0 mmol/L Chloride Level 103 mmol/L 109 mmol/L Carbon Dioxide Level 29 mmol/L 24 mmol/L Anion Gap 9.0 mmol/L 9.0 mmol/L Blood Urea Nitrogen 10 mg/dl 8 mg/dl Creatinine 0.64 mg/dl 0.48 mg/dl Estimated GFR () 115.0 129.4 Estimated GFR (Non- 99.2 111.7 BUN/Creatinine Ratio 16.0 16.8 Random Glucose 94 mg/dl 91 mg/dl Calcium Level 8.8 mg/dl 8.3 mg/dl Magnesium Level 2.4 mg/dl 2.2 mg/dl Total Bilirubin 0.6 mg/dl 0.7 mg/dl Direct Bilirubin 0.1 mg/dl 0.2 mg/dl Aspartate Amino Transf (AST/SGOT) 11 U/L 8 U/L Alanine Aminotransferase (ALT/SGPT) 17 U/L 12 U/L Alkaline Phosphatase 94 U/L 78 U/L Total Creatine Kinase 23 U/L Creatine Kinase MB 0.6 ng/ml Creatine Kinase MB Ratio 2.6 Troponin I < 0.015 ng/ml Total Protein 6.7 gm/dl 5.5 gm/dl Albumin 2.9 gm/dl 2.3 gm/dl Lipase 266 U/L Thyroid Stimulating Hormone (TSH) 0.193 uIu/ml Lactic Acid Level 1.1 mmol/L 0.4 mmol/L Est Creatinine Clear Calc Drug Dose 138.5 ml/min Phosphorus Level 2.6 mg/dl Globulin 3.2 gm/dl Albumin/Globulin Ratio 0.7 Date/Time Source Procedure Growth Status 07/16/17 15:18 Blood Blood Culture Pending Received 07/16/17 15:17 Blood Blood Culture Pending Received 07/17/17 08:30 Stool C.difficile Toxin B Gene (PCR) - Final Positive for C. difficile toxin B gene Complete Assessment & Plan 71 yo M s/p recent back surgery and rehab program presents with increased weakness and diarrhea after completing a course of vancomycin for c-diff colitis. 1. Anemia 2/2 possible acute blood loss vs recent surgery vs hemodilution vs chronic disease. No bleeding noted in stool but it was blackish in color. Abdominal pain is generalized and CT reveals pancolitis without signs of obstruction or perforation. Diarrhea has been severe for ten days per patient report. Placed on Vanc/Flagyl. Cont supportive care. Will stop IVF for now and allow clear liquid diet until GI able to evaluate. No scope to be likely performed on the weekend. 2. C-diff pancolitis-cont Vanc/Flagyl. Will request ID consult as this is severe and recurrent and will likely need to be followed as outpatient down the road. 3. CAD/PVD-ASA continued in setting of CAD with prior stents. Plavix held in setting of possible bleed. Decreasing dose of Lopressor in setting of bradycardia. Cont statin. 4. Ankle pain-acute in L with decreased ROM and pain to palpation of bilateral malleoli. Restarting oxy which was held on admission. Starting APAP 1000 q8h. If no improvement will restart his gabapentin which was helping him for this pain a couple of weeks ago. Ankle xray to examine joint space better. Presume OA with possible flare but may be gout or something other. 5. s/p back surgery-back pain is well controlled and wound is healing well without areas of erythema or drainage. Chest tube was placed intraoperatively for a PTX and was removed prior to discharge in late May. Post-op course also complicated by bout of c-diff for which he completed a two week course of vancomycin. PT/OT 6. Severe protein calorie nutrition related to recent surgery and recovery. Thirty lb weight loss. Tolerating PO. Apprec nutrition recs. 7. Hypokalemia likely related to diarrhea. Replace and repeat PRP in am. DVT proph-held in setting of poss bleed, SCDs. Full Code dispo-pending improvement in diarrhea and PT/OT evals. Pt lives alone at home. Poss rehab as transition to home again. DO Kenney Santos Hospitalist Consultants: GI ID Current Inpatient Medications: Current Inpatient Medications Medications (Trade) Dose Ordered Sig/Ananth Route Start Time Stop Time Status Last Admin Dose Admin Ioversol (Optiray 320) 100 ml UD PRN IV 07/16/17 16:45 07/20/17 16:44 Sodium Chloride 1,000 ml @ 125 mls/hr Q8H IV 07/16/17 20:00 08/15/17 19:59 07/17/17 07:48 125 MLS/HR Ondansetron HCl (Zofran Inj) 4 mg Q6H PRN IV 07/16/17 20:00 08/15/17 19:59 Vancomycin HCl (Vancomycin Oral Soln) 250 mg Q6 PO 07/17/17 00:00 07/27/17 00:00 07/17/17 05:37 250 MG Raspberry (Raspberry Syrup 5ml Cup) 5 ml Q6 PO 07/17/17 00:00 07/31/17 00:00 07/17/17 05:37 5 ML Metronidazole 500 mg/Prmx 100 ml @ 100 mls/hr Q8H IV 07/17/17 02:00 07/26/17 01:59 07/17/17 10:42 100 MLS/HR Diazepam (Valium Tab) 5 mg Q8 PRN PO 07/17/17 01:30 08/16/17 01:29 Metoprolol Tartrate (Lopressor Tab) 50 mg BID PO 07/17/17 09:00 08/16/17 08:59 07/17/17 07:51 50 MG Nitroglycerin (Nitrostat Tab) 0.4 mg PRN UT 07/17/17 01:30 08/16/17 01:29 Miscellaneous Information (Order Awaiting Action) 1 ea QS N/A 07/17/17 08:00 08/16/17 07:59 Mupirocin (Bactroban 2% Oint) 1 appln BID INTNAS 07/17/17 09:00 08/16/17 08:59 07/17/17 07:51 1 APPLN Pantoprazole Sodium 40 mg/ Dextrose 100 ml @ 20 mls/hr Q5H IV 07/17/17 01:45 08/16/17 01:44 07/17/17 07:48 20 MLS/HR Fentanyl (Duragesic Patch) 25 mcg Q3D TD 07/17/17 09:00 07/31/17 08:59 07/17/17 09:41 25 MCG Miscellaneous (Fentanyl Patch Remove & Waste) 1 ea Q3D N/A 07/17/17 08:59 08/16/17 08:58 07/17/17 09:41 1 EA Miscellaneous Information (Check Fentanyl Patch Placement) 1 ea QS N/A 07/17/17 08:00 08/16/17 07:59 07/17/17 07:49 1 EA Potassium Chloride (Klor-Con Tab) 40 meq Q6H PO 07/17/17 09:30 07/17/17 15:31 07/17/17 10:41 40 MEQ
[2017-07-17 11:31] VITALS: BP 139/63; PULSE 48; TEMP 36.7; O2SAT 98
--- NOTE | 2017-07-17 12:02 | DIAGNOSTIC IMAGING REPORT ---
L ANKLE MIN 3 VIEWS ROUTINE CLINICAL HISTORY: Left ankle pain and diminished range of motion COMPARISON: None. DISCUSSION: No acute fractures or dislocations are visualized. There is a linear bony density adjacent to medial malleolar tip. This is likely old. IMPRESSION: No acute fractures or dislocations identified. Electronically signed by: Tanner Ramirez M.D. 07/17/2017 12:00 PM Dictated Date/Time: 07/17/2017 11:59 AM
[2017-07-17] MEDS: OXYCODONE HCL IR 5 MG TAB (IMMEDIATE RELEASE) PO SCH ×2 (13:15→20:09)
[2017-07-17] MEDS: ASPIRIN 81 MG ECTAB PO SCH (13:15)
[2017-07-17] MEDS: ACETAMINOPHEN 500 MG TAB PO SCH ×2 (13:15→20:10)
[2017-07-17] MEDS: ROSUVASTATIN CALCIUM 20 MG TAB PO SCH (13:15)
--- NOTE | 2017-07-17 14:28 | GASTROINTESTINAL CONSULTATION ---
DATE OF CONSULTATION: 07/17/2017 REFERRED BY: Keyona Mercado MD I was asked by Dr. Mercado to consult on this gentleman because of diarrhea and colitis and possible C. diff. HISTORY OF PRESENT ILLNESS: The patient is a 71-year-old who had extensive back surgery in May at [facility]. He developed postop C. diff and went to rehab at [facility] between the end of May and the middle of June. He states that since leaving rehab he has had worsening dark loose stools and abdominal cramping, and eventually because of diffuse abdominal pain and his continued bouts of severe diarrhea, he came to the Emergency Room and CT scan showed pancolitis and stool came back today positive for C. diff. He does not give a history of any recent antibiotics since his first bout of C. diff during his back surgery. He states since coming in yesterday and receiving p.o. vancomycin and IV Flagyl, his belly feels much better. He then states he has had a little bit less stooling. PAST MEDICAL HISTORY: I reviewed his medical records and past medical history and his past medical history is significant for what is already mentioned as well as hypertension. FAMILY HISTORY: Negative for gastrointestinal disease. SOCIAL HISTORY: Significant for being a former smoker, but no alcohol abuse. ALLERGIES: He denies any drug allergies. OUTPATIENT MEDICATIONS: Include baby aspirin, Plavix, fentanyl p.r.n., Neurontin, Lopressor, Crestor. REVIEW OF SYSTEMS: As above, otherwise he has had some weight loss and failure to thrive. Since his surgery, he has had increased weakness. He is very fatigued. He denies any chest pain or productive cough, but he does have poor exertional tolerance and easily gets short of breath. He did have some associated nausea with his abdominal pain, but no vomiting. He denies any recent rashes, icterus, or jaundice. He has had no change in vision or hearing. He denies any joint swelling. He has had no dysuria. He denies any history of seizures. He does state he is a little bit depressed because he has been so sick. PHYSICAL EXAMINATION: GENERAL: Reveals a gentleman lying in bed, appearing rather comfortable. VITAL SIGNS: Temperature is 36.7, pulse is 48, blood pressure is 139/63. SKIN: Anicteric. HEENT: Eyes show anicteric sclerae. He has a little bit of bitemporal wasting. Mouth is slightly dry, but clear of lesions. NECK: Supple. CHEST: Clear. HEART: Slightly bradycardic to regular. ABDOMEN: Soft. He has some mild diffuse tenderness to deep palpation, but he has bowel sounds that are present with no rebound and no masses. EXTREMITIES: Thin, but with fair distal pulses. NEUROLOGIC: He is alert and oriented x3 and grossly intact. LABORATORY DATA: Show a white blood cell count of 7.5 on admission with a hemoglobin of 9.4 and a platelet count of 277,000. Stool for C. diff was positive today. Liver enzymes were normal and imaging CAT scan showed pancolitis, but no evidence of megacolon or free air. IMPRESSION AND PLAN: Recurrent Clostridium difficile versus Clostridium difficile that was never completely treated; it is difficult to ascertain this. I agree with p.o. vancomycin and IV Flagyl, but at this point given his pancolitis that I considered this is a severe case of Clostridium difficile. It appears that he is already feeling better, though I agree that it would be helpful to have infectious disease weigh in on length of treatment, which I think should be at least 2 weeks and whether or not he needs a taper at the end of this. Continue to follow his belly exams.
[2017-07-17 15:25] VITALS: BP 111/68; PULSE 59; TEMP 36.6; O2SAT 95
--- NOTE | 2017-07-17 15:57 | Medical Consult ---
Consultation Date of Consultation: Jul 17, 2017. Attending Physician: Marsha Rivera DO Reason for Consultation: Recurrent C difficile colitis History of Present Illness 71-year-old male with coronary disease and hypertension who underwent extensive lumbar surgery in May, complicated by C difficile colitis treated with oral vancomycin with resolution. He subsequently was transferred to [facility] for rehab, and over the last several days has developed progressively worsening diarrhea and abdominal pain. He was brought back to emergency room where he was found to have evidence of pancolitis on CT scan of abdomen, read by me, and C difficile PCR positive. Patient has been started on oral vancomycin and IV metronidazole with some improvement. Currently is afebrile and hemodynamically stable. Complaining of left ankle pain, currently 8/10 in intensity. Blood cultures are no growth so far. Past Medical/Surgical History Medical Problems: (1) Colitis Status: Acute (2) Weakness Status: Acute Medical Problems: (1) C. difficile colitis (2) Colitis (3) HTN (hypertension) Surgical history: Back surgery Family History FH: CAD (coronary artery disease) FATHER Social History Smoking Status: Former Smoker Smokeless Tobacco Use: No Occupation Status: retired Allergies Coded Allergies: No Known Allergies (Unverified , 07/16/17) Current Inpatient Medications Current Inpatient Medications Medications (Trade) Dose Ordered Sig/Ananth Route Start Time Stop Time Status Last Admin Dose Admin Ioversol (Optiray 320) 100 ml UD PRN IV 07/16/17 16:45 07/20/17 16:44 Ondansetron HCl (Zofran Inj) 4 mg Q6H PRN IV 07/16/17 20:00 08/15/17 19:59 Vancomycin HCl (Vancomycin Oral Soln) 250 mg Q6 PO 07/17/17 00:00 07/27/17 00:00 07/17/17 13:16 250 MG Raspberry (Raspberry Syrup 5ml Cup) 5 ml Q6 PO 07/17/17 00:00 07/31/17 00:00 07/17/17 05:37 5 ML Metronidazole 500 mg/Prmx 100 ml @ 100 mls/hr Q8H IV 07/17/17 02:00 07/26/17 01:59 07/17/17 10:42 100 MLS/HR Diazepam (Valium Tab) 5 mg Q8 PRN PO 07/17/17 01:30 08/16/17 01:29 Nitroglycerin (Nitrostat Tab) 0.4 mg PRN UT 07/17/17 01:30 08/16/17 01:29 Miscellaneous Information (Order Awaiting Action) 1 ea QS N/A 07/17/17 08:00 08/16/17 07:59 Mupirocin (Bactroban 2% Oint) 1 appln BID INTNAS 07/17/17 09:00 08/16/17 08:59 07/17/17 07:51 1 APPLN Pantoprazole Sodium 40 mg/ Dextrose 100 ml @ 20 mls/hr Q5H IV 07/17/17 01:45 08/16/17 01:44 07/17/17 07:48 20 MLS/HR Fentanyl (Duragesic Patch) 25 mcg Q3D TD 07/17/17 09:00 07/31/17 08:59 07/17/17 09:41 25 MCG Miscellaneous (Fentanyl Patch Remove & Waste) 1 ea Q3D N/A 07/17/17 08:59 08/16/17 08:58 07/17/17 09:41 1 EA Miscellaneous Information (Check Fentanyl Patch Placement) 1 ea QS N/A 07/17/17 08:00 08/16/17 07:59 07/17/17 07:49 1 EA Aspirin (Ecotrin Tab) 81 mg Q2D@0900 PO 07/17/17 13:00 08/16/17 12:59 07/17/17 13:15 81 MG Rosuvastatin Calcium (Crestor Tab) 20 mg DAILY PO 07/17/17 13:00 08/16/17 12:59 07/17/17 13:15 20 MG Oxycodone HCl (Roxicodone Immediate Rel Tab) 20 mg TID PO 07/17/17 14:00 07/31/17 13:59 07/17/17 13:15 20 MG Acetaminophen (Tylenol Tab) 1,000 mg Q8 PO 07/17/17 14:00 08/16/17 13:59 07/17/17 13:15 1,000 MG Metoprolol Tartrate (Lopressor Tab) 25 mg BID PO 07/17/17 21:00 08/16/17 20:59 Review of Systems Constitutional: + weakness, + fatigue, No fever Eyes: No problem reported ENT: No problem reported Respiratory: No problem reported Cardiovascular: No problem reported Abdomen: + pain, + diarrhea Musculoskeletal: + joint pain Genitourinary - Male: No problem reported Neurologic: No problem reported Psychiatric: No problem reported Endocrine: No problem reported Hematologic / Lymphatic: No problem reported Integumentary: No problem reported Allergic / Immunologic: No problem reported Physical Exam Date Time Temp Pulse Resp B/P (MAP) Pulse Ox O2 Delivery O2 Flow Rate FiO2 07/17/17 15:25 36.6 59 22 111/68 (82) 95 Room Air 07/17/17 12:00 Room Air 07/17/17 11:31 36.7 48 18 139/63 (88) 98 Room Air 07/17/17 08:00 Room Air 07/17/17 07:33 36.6 61 18 129/59 (82) 96 Room Air 07/17/17 04:24 37.0 66 20 125/64 (84) 95 Room Air 07/17/17 04:00 Room Air 07/17/17 00:00 Room Air 07/16/17 23:40 37.1 63 22 120/62 (81) 97 Room Air 07/16/17 20:20 36.6 57 20 147/60 (89) 100 Room Air 07/16/17 19:45 36.6 58 20 147/60 100 Room Air 07/16/17 19:29 54 19 150/65 99 07/16/17 19:04 58 20 150/65 97 Room Air 07/16/17 17:02 130/58 97 Room Air 07/16/17 16:20 66 19 151/70 100 Room Air General Appearance: WD/WN, no apparent distress Head: normocephalic, atraumatic Eyes: normal inspection, EOMI, sclerae normal ENT: normal ENT inspection, hearing grossly normal, pharynx normal Neck: supple, no adenopathy, thyroid normal, trachea midline Respiratory/Chest: chest non-tender, lungs clear, normal breath sounds, no respiratory distress Cardiovascular: regular rate, rhythm, no gallop, no murmur Abdomen/GI: normal bowel sounds, soft, no organomegaly, + tenderness, + distended Back: normal inspection, no CVA tenderness Extremities/Musculoskelatal: no calf tenderness, normal capillary refill, + pertinent finding (Left ankle swelling) Neurologic/Psych: alert, oriented x 3 Skin: normal color, warm/dry, no rash Lymphatic: no adenopathy Laboratory Results Date/Time Source Procedure Growth Status 07/17/17 08:30 Stool C.difficile Toxin B Gene (PCR) - Final Positive for C. difficile toxin B gene Complete Last 24 Hours Test 07/16/17 20:27 07/17/17 06:17 Lactic Acid Level 1.1 mmol/L 0.4 mmol/L White Blood Count 6.19 K/uL Red Blood Count 2.95 M/uL Hemoglobin 7.9 g/dL Hematocrit 24.7 % Mean Corpuscular Volume 83.7 fL Mean Corpuscular Hemoglobin 26.8 pg Mean Corpuscular Hemoglobin Concent 32.0 g/dl RDW Standard Deviation 45.2 fL RDW Coefficient of Variation 14.8 % Platelet Count 237 K/uL Mean Platelet Volume 9.4 fL Sodium Level 142 mmol/L Potassium Level 3.0 mmol/L Chloride Level 109 mmol/L Carbon Dioxide Level 24 mmol/L Anion Gap 9.0 mmol/L Blood Urea Nitrogen 8 mg/dl Creatinine 0.48 mg/dl Est Creatinine Clear Calc Drug Dose 138.5 ml/min Estimated GFR () 129.4 Estimated GFR (Non- 111.7 BUN/Creatinine Ratio 16.8 Random Glucose 91 mg/dl Calcium Level 8.3 mg/dl Phosphorus Level 2.6 mg/dl Magnesium Level 2.2 mg/dl Total Bilirubin 0.7 mg/dl Direct Bilirubin 0.2 mg/dl Aspartate Amino Transf (AST/SGOT) 8 U/L Alanine Aminotransferase (ALT/SGPT) 12 U/L Alkaline Phosphatase 78 U/L Total Protein 5.5 gm/dl Albumin 2.3 gm/dl Globulin 3.2 gm/dl Albumin/Globulin Ratio 0.7 Patient Name: CHINO ROBBINS Unit Number: [id number] Dictated: 07/16/171704 Transcribed: 07/16/171704 ARG Printed Date/Time: [~ rep prt dt]/[~ rep prt tm] [~ rep ct labl] - [~ rep ct ivnm] [facility] [place] [address] Dictated: 07/16/171704 Transcribed: 02/24/18 1705 ARG Printed Date/Time: [~ rep prt dt]/[~ rep prt tm] [~ rep ct labl] - [~ rep ct ivnm] CT ABD/PELVIS IV CONTRAST ONLY CLINICAL HISTORY: diffuse abd pain, weakness COMPARISON STUDY: May 14, 2015 TECHNIQUE: Following the IV administration of 100 mL of Optiray-320, CT scan of the abdomen and pelvis was performed from the lung bases to the proximal femurs. Images are reviewed in the axial, sagittal, and coronal planes. IV contrast was administered without complication. A dose lowering technique was utilized adhering to the principles of ALARA. CT DOSE: FINDINGS: Lower chest: There is a small left pleural effusion with left basilar atelectatic changes Liver: The contrast-enhanced liver is normal in size, contour, and attenuation. There is no intrahepatic biliary ductal dilatation. The hepatic veins and portal veins are patent. Gallbladder: Cholelithiasis Spleen: The spleen is elongated measuring 16 cm in length Pancreas: Unremarkable. Adrenal glands: Unremarkable. Kidneys: There is symmetric renal cortical enhancement. The kidneys are normal in size without hydronephrosis. Bowel: There are no transition zones indicate bowel obstruction. There is pandiverticulosis. There is mild diffuse colonic wall thickening most pronounced within the left and ascending colon. Peritoneum: There is no intraperitoneal free air or abdominal ascites. Vasculature: The abdominal aorta is normal in course and caliber. Adenopathy: There is a 12 mm hypodense structure located lateral to the right common iliac artery. This likely represents a hypodense lymph node Pelvic viscera: The prostate is mildly enlarged Skeletal structures: There are extensive postsurgical changes present within the spine IMPRESSION: 1. Diffuse colonic wall thickening consistent with a pancolitis 2. No evidence of bowel obstruction. No evidence of free air 3. Normal appendix 5. Cholelithiasis 6. Mild splenomegaly 7. Small left pleural effusion Electronically signed by: Tanner Ramirez M.D. 07/16/2017 5:10 PM Dictated Date/Time: 07/16/2017 5:05 PM The status of this report is Signed. Draft = Not yet reviewed or approved by Radiologist. Signed = Reviewed and approved by Radiologist. <AttendingPhy></AttendingPhy> <FamilyPhy>Tank Multani D.O.</FamilyPhy> < PrimaryPhy>Tank Multani D.O.</PrimaryPhy> <UnitNumber>[id number]</UnitNumber> <VisitNumber>[id number]</VisitNumber> <PatientName>CHINO ROBBINS</PatientName > <DateOfBirth>1945</DateOfBirth> <Location>[facility]</Location> <ServiceDate> 07/16/17</ServiceDate> <MNE>ESINDI</MNE> <OrderingPhy>Jeremias Gil MD</ OrderingPhy> <OrderingPhyMNE>f rep ord dr nails</OrderingPhyMNE> <DictatingPhyMNE> f rep dict dr nails</DictatingPhyMNE> <CCListMNE>f rep ct mne</CCListMNE> < AdmittingPhyMNE>f pt admit dr nails</AdmittingPhyMNE> <AttendingPhyMNE>f pt attend dr nails</AttendingPhyMNE> <ConsultingPhyMNE>f pt consult dr nails</ConsultingPhyMNE> <FamilyPhyMNE>f pt fam dr nails</FamilyPhyMNE> <OtherPhyMNE>f pt other dr nails</OtherPhyMNE> < PrimaryPhyMNE>f pt prim care dr nails</PrimaryPhyMNE> <ReferringPhyMNE>f pt referring dr nails</ReferringPhyMNE> Assessment & Plan 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 Would recommend patient be treated with prolonged tapering course of oral vancomycin therapy. Would think that IV metronidazole could be discontinued. Will discuss with all involved. Will follow.
[2017-07-17 19:17] LABS: HEMATOCRIT 25.1 % (42-52); HEMOGLOBIN 8.1 g/dL (14.0-18.0)
[2017-07-17 19:20] VITALS: BP_SYST 100; BP_SYST 111; BP_SYST 99; BP_DIAS 52; BP_DIAS 55; BP_DIAS 59; PULSE 57; TEMP 36.5; O2SAT 95
[2017-07-17] MEDS: CLOBETASOL~ORDER AWAITING ACTION SCH (20:08)
[2017-07-17] MEDS: METOPROLOL TARTRATE 25 MG TAB PO SCH (20:09)
[2017-07-17 23:45] VITALS: BP 123/58; PULSE 57; TEMP 36.8; O2SAT 97
[2017-07-18] VITALS (7 sets, daily range): BP systolic 110–143; BP diastolic 57–88; PULSE 61–81; TEMP 36.6–36.8; O2SAT 93–97
[2017-07-18] MEDS: VANCOMYCIN HCL 250 MG/5 ML SOLN PO SCH ×4 (00:18→18:10)
[2017-07-18] MEDS: CHECK FENTANYL PATCH PLACEMENT SCH ×3 (00:18→15:49)
[2017-07-18] MEDS: PANTOprazole INJ 40 MG in DEXTROSE 5% 100ML IV SCH ×5 (00:54→20:57)
[2017-07-18] MEDS: RASPBERRY SYRUP 5 ML UDP PO SCH ×4 (05:35→18:00)
[2017-07-18] MEDS: ACETAMINOPHEN 500 MG TAB PO SCH ×3 (05:35→22:20)
[2017-07-18 07:09] LABS: HEMATOCRIT 27.4 % (42-52); HEMOGLOBIN 8.8 g/dL (14.0-18.0)
[2017-07-18 07:48] LABS: ALBUMIN 2.3 gm/dl (3.4-5.0); CALCIUM 8.1 mg/dl (8.5-10.1); CREATININE 0.63 mg/dl (0.60-1.40); POTASSIUM 3.2 mmol/L (3.5-5.1)
[2017-07-18 07:54] LABS: PHOSPHORUS 1.6 mg/dl (2.5-4.9); TOTAL PROTEIN 5.4 gm/dl (6.4-8.2)
[2017-07-18] MEDS: CLOBETASOL~ORDER AWAITING ACTION SCH ×2 (08:00→15:42)
--- NOTE | 2017-07-18 09:00 | Gastroenterology Progress Note ---
Progress Note Date of Service: Jul 18, 2017 Subjective Pt evaluation today including: conversation w/ patient, physical exam, chart review, lab review Pt seen and evaluated, chart reviewed. Admitted for abd pain, diarrhea. CT w/ pancolitis, stool was positive for c.diff. He had his infection after back surgery, was treated with a course of ABX. Pt notes his symptoms are unchanged since admission. His abd pain was better yesterday, but today abdominal pain has worsened. Constant 6/10. Severe cramping. Worse with palpation. Unchanged by liquids. No nausea, vomiting. Continues to have loose stools. He tells me he woke up x 3 last night for BM. No BRB. Stools are dark. No fever, chills, CP, SOB c.diff 07/17/17: positive Ct abd/pelvis 07/16/17:Diffuse colonic wall thickening consistent with a pancolitis No evidence of bowel obstruction. No evidence of free airNormal appendixCholelithiasis Mild splenomegaly Small left pleural effusion Review of Systems Constitutional: No fever, No chills, No sweats, No weight loss Respiratory: No cough, No sputum, No shortness of breath Cardiac: No chest pain, No PND, No edema, No palpitations Abdomen: + pain, + diarrhea, No nausea, No vomiting, No constipation, No GI bleeding, No dysphagia, No odynophagia, No acolic stools Endo: No fatigue, No excessive thirst, No excessive urination Skin: No rash, No itch, No color change, No bleeding, No jaundice Medications Current Inpatient Medications Medications (Trade) Dose Ordered Sig/Ananth Route Start Time Stop Time Status Last Admin Dose Admin Ioversol (Optiray 320) 100 ml UD PRN IV 07/16/17 16:45 07/20/17 16:44 Ondansetron HCl (Zofran Inj) 4 mg Q6H PRN IV 07/16/17 20:00 08/15/17 19:59 Vancomycin HCl (Vancomycin Oral Soln) 250 mg Q6 PO 07/17/17 00:00 07/27/17 00:00 07/18/17 05:35 250 MG Raspberry (Raspberry Syrup 5ml Cup) 5 ml Q6 PO 07/17/17 00:00 07/31/17 00:00 07/17/17 05:37 5 ML Diazepam (Valium Tab) 5 mg Q8 PRN PO 07/17/17 01:30 08/16/17 01:29 Nitroglycerin (Nitrostat Tab) 0.4 mg PRN UT 07/17/17 01:30 08/16/17 01:29 Miscellaneous Information (Order Awaiting Action) 1 ea QS N/A 07/17/17 08:00 08/16/17 07:59 Mupirocin (Bactroban 2% Oint) 1 appln BID INTNAS 07/17/17 09:00 08/16/17 08:59 07/17/17 07:51 1 APPLN Pantoprazole Sodium 40 mg/ Dextrose 100 ml @ 20 mls/hr Q5H IV 07/17/17 01:45 08/16/17 01:44 07/18/17 05:35 20 MLS/HR Fentanyl (Duragesic Patch) 25 mcg Q3D TD 07/17/17 09:00 07/31/17 08:59 07/17/17 09:41 25 MCG Miscellaneous (Fentanyl Patch Remove & Waste) 1 ea Q3D N/A 07/17/17 08:59 08/16/17 08:58 07/17/17 09:41 1 EA Miscellaneous Information (Check Fentanyl Patch Placement) 1 ea QS N/A 07/17/17 08:00 08/16/17 07:59 07/18/17 00:18 1 EA Aspirin (Ecotrin Tab) 81 mg Q2D@0900 PO 07/17/17 13:00 08/16/17 12:59 07/17/17 13:15 81 MG Rosuvastatin Calcium (Crestor Tab) 20 mg DAILY PO 07/17/17 13:00 08/16/17 12:59 07/17/17 13:15 20 MG Oxycodone HCl (Roxicodone Immediate Rel Tab) 20 mg TID PO 07/17/17 14:00 07/31/17 13:59 07/17/17 20:09 20 MG Acetaminophen (Tylenol Tab) 1,000 mg Q8 PO 07/17/17 14:00 08/16/17 13:59 07/18/17 05:35 1,000 MG Metoprolol Tartrate (Lopressor Tab) 25 mg BID PO 07/17/17 21:00 08/16/17 20:59 Objective Vital Signs Date Time Temp Pulse Resp B/P (MAP) Pulse Ox O2 Delivery O2 Flow Rate FiO2 07/18/17 08:02 36.6 66 20 141/69 (93) 94 Room Air 76 142/72 (95) 76 116/88 (97) 07/18/17 04:00 Room Air 07/18/17 03:38 36.7 67 19 143/69 (93) 94 Room Air 75 110/65 (80) 114/57 (76) 07/17/17 23:59 Room Air 07/17/17 23:45 36.8 57 17 123/58 (79) 97 Room Air 07/17/17 20:00 Room Air 07/17/17 19:20 36.5 57 20 111/55 (73) 95 Room Air 99/52 (68) 100/59 (73) 07/17/17 16:00 Room Air 07/17/17 15:25 36.6 59 22 111/68 (82) 95 Room Air 07/17/17 12:00 Room Air 07/17/17 11:31 36.7 48 18 139/63 (88) 98 Room Air Physical Exam General Appearance: no apparent distress Eyes: PERRL ENT: hearing grossly normal Neck: supple, no adenopathy, no JVD, trachea midline Respiratory/Chest: lungs clear, normal breath sounds, no respiratory distress, no accessory muscle use Cardiovascular: regular rate, rhythm, no gallop, no JVD, no murmur Abdomen: normal bowel sounds, soft, no organomegaly, no pulsatile mass, + tenderness (generalized tenderness x 4, no rebound, no guarding) Neurologic/Psych: alert, normal mood/affect, oriented x 3 Skin: normal color, no jaundice, warm/dry, no rash Laboratory Results Last 24 Hours Test 07/17/17 19:02 07/18/17 05:50 07/18/17 06:50 Hemoglobin 8.1 g/dL 8.8 g/dL Hematocrit 25.1 % 27.4 % Urine Color YELLOW Urine Appearance CLEAR Urine pH 5.0 Urine Specific [place] 1.024 Urine Protein NEG Urine Glucose (UA) NEG Urine Ketones NEG Urine Occult Blood NEG Urine Nitrite NEG Urine Bilirubin NEG Urine Urobilinogen NEG Urine Leukocyte Esterase SMALL Urine WBC (Auto) 1-5 /hpf Urine RBC (Auto) 0-4 /hpf Urine Hyaline Casts (Auto) 5-10 /lpf Urine Epithelial Cells (Auto) 20-30 /lpf Urine Bacteria (Auto) NEG Sodium Level 144 mmol/L Potassium Level 3.2 mmol/L Chloride Level 110 mmol/L Carbon Dioxide Level 28 mmol/L Anion Gap 6.0 mmol/L Blood Urea Nitrogen 7 mg/dl Creatinine 0.63 mg/dl Est Creatinine Clear Calc Drug Dose 105.5 ml/min Estimated GFR () 115.7 Estimated GFR (Non- 99.8 BUN/Creatinine Ratio 11.4 Random Glucose 108 mg/dl Calcium Level 8.1 mg/dl Phosphorus Level 1.6 mg/dl Total Bilirubin 0.4 mg/dl Direct Bilirubin 0.2 mg/dl Aspartate Amino Transf (AST/SGOT) 7 U/L Alanine Aminotransferase (ALT/SGPT) 11 U/L Alkaline Phosphatase 72 U/L Total Protein 5.4 gm/dl Albumin 2.3 gm/dl Globulin 3.1 gm/dl Albumin/Globulin Ratio 0.7 Free Thyroxine 1.55 ng/dl Assessment and Plan 71 year old male with recurrent c.diff colitis on IV flagyl and PO vancomycin since admission w/ little improvement of his symptoms - has continued abdominal pain, diarrhea. - Continue PO vancomycin QID x 14 days with taper Vanco 125 QID x 14 days Vanco 125 BID x 7 days Vanco 125 daily x 7 days Vanco 125 every other day x 7 days Vanco 125 every third day x 14 days - Ok to D/C IV flagyl at recommendation of ED - Bentyl 10 mg TID as needed for pain Please call with any questions or concerns. ATTESTATION: I have performed a history and physical examination of this patient and reviewed the electronic record. Specifically, on history diarrhea without blood and abdominal pain continue, and on physical examination there is mild diffuse abdominal tenderness. I have discussed the case with TODD Jade. The above note reflects my findings, conclusions, and recommendations. Rishi Williamson MD
[2017-07-18] MEDS: OXYCODONE HCL IR 5 MG TAB (IMMEDIATE RELEASE) PO SCH ×3 (10:16→20:57)
[2017-07-18] MEDS: MUPIROCIN 2% OINT 22 GM TUBE INTNAS SCH ×2 (10:16→20:56)
[2017-07-18] MEDS: ROSUVASTATIN CALCIUM 20 MG TAB PO SCH (10:16)
[2017-07-18] MEDS: METOPROLOL TARTRATE 25 MG TAB PO SCH ×2 (10:16→20:56)
[2017-07-18] MEDS ORDERED: POTASSIUM PHOS 3 MMOL/1 ML INFUSION IV STA (11:34)
[2017-07-18] MEDS ORDERED: POTASSIUM PHOSPHATE INJ 30 MMOL in SODIUM CHLORIDE 0.9% 500ML 500 ML IV ONE (11:45)
[2017-07-18] MEDS: GABAPENTIN 600 MG TAB PO SCH ×2 (13:47→20:56)
[2017-07-18] MEDS: POTASSIUM CHLORIDE 20 MEQ TABCR PO SCH ×2 (13:48→18:10)
[2017-07-18 20:33] LABS: HEMATOCRIT 27.4 % (42-52)
--- NOTE | 2017-07-18 20:39 | Infectious Disease Progress Nt ---
Progress Note Date of Service Jul 18, 2017. Subjective Pt evaluation today including: conversation w/ patient, physical exam, chart review, lab review, review of studies, conversation w/ search engine optimization consultant, review of inpatient medication list Continues with severe abdominal pain. Currently 6/10 in intensity. 8 bowel movements today. Remains afebrile. All Other Systems: Reviewed and Negative Medications Current Inpatient Medications Medications (Trade) Dose Ordered Sig/Ananth Route Start Time Stop Time Status Last Admin Dose Admin Ioversol (Optiray 320) 100 ml UD PRN IV 07/16/17 16:45 07/20/17 16:44 Ondansetron HCl (Zofran Inj) 4 mg Q6H PRN IV 07/16/17 20:00 08/15/17 19:59 Vancomycin HCl (Vancomycin Oral Soln) 250 mg Q6 PO 07/17/17 00:00 07/27/17 00:00 07/18/17 18:10 250 MG Raspberry (Raspberry Syrup 5ml Cup) 5 ml Q6 PO 07/17/17 00:00 07/31/17 00:00 07/17/17 05:37 5 ML Diazepam (Valium Tab) 5 mg Q8 PRN PO 07/17/17 01:30 08/16/17 01:29 Nitroglycerin (Nitrostat Tab) 0.4 mg PRN UT 07/17/17 01:30 08/16/17 01:29 Miscellaneous Information (Order Awaiting Action) 1 ea QS N/A 07/17/17 08:00 08/16/17 07:59 Mupirocin (Bactroban 2% Oint) 1 appln BID INTNAS 07/17/17 09:00 08/16/17 08:59 07/17/17 07:51 1 APPLN Pantoprazole Sodium 40 mg/ Dextrose 100 ml @ 20 mls/hr Q5H IV 07/17/17 01:45 08/16/17 01:44 07/18/17 15:49 20 MLS/HR Fentanyl (Duragesic Patch) 25 mcg Q3D TD 07/17/17 09:00 07/31/17 08:59 07/17/17 09:41 25 MCG Miscellaneous (Fentanyl Patch Remove & Waste) 1 ea Q3D N/A 07/17/17 08:59 08/16/17 08:58 07/17/17 09:41 1 EA Miscellaneous Information (Check Fentanyl Patch Placement) 1 ea QS N/A 07/17/17 08:00 08/16/17 07:59 07/18/17 15:49 1 EA Aspirin (Ecotrin Tab) 81 mg Q2D@0900 PO 07/17/17 13:00 08/16/17 12:59 07/17/17 13:15 81 MG Rosuvastatin Calcium (Crestor Tab) 20 mg DAILY PO 07/17/17 13:00 08/16/17 12:59 07/18/17 10:16 20 MG Oxycodone HCl (Roxicodone Immediate Rel Tab) 20 mg TID PO 07/17/17 14:00 07/31/17 13:59 07/18/17 15:48 20 MG Acetaminophen (Tylenol Tab) 1,000 mg Q8 PO 07/17/17 14:00 08/16/17 13:59 07/18/17 13:47 1,000 MG Metoprolol Tartrate (Lopressor Tab) 25 mg BID PO 07/17/17 21:00 08/16/17 20:59 07/18/17 10:16 25 MG Gabapentin (Neurontin Tab) 600 mg TID PO 07/18/17 14:00 08/17/17 13:59 07/18/17 13:47 600 MG Objective Vital Signs Date Time Temp Pulse Resp B/P (MAP) Pulse Ox O2 Delivery O2 Flow Rate FiO2 07/18/17 16:00 Room Air 07/18/17 15:43 36.8 71 26 132/67 (88) 96 Room Air 07/18/17 15:20 36.6 67 20 135/68 (90) 97 Room Air 75 120/64 (82) 81 111/63 (79) 07/18/17 12:24 36.7 61 22 135/64 (87) 96 Room Air 07/18/17 12:00 Room Air 07/18/17 08:02 36.6 66 20 141/69 (93) 94 Room Air 76 142/72 (95) 76 116/88 (97) 07/18/17 08:00 Room Air 07/18/17 04:00 Room Air 07/18/17 03:38 36.7 67 19 143/69 (93) 94 Room Air 75 110/65 (80) 114/57 (76) 07/17/17 23:59 Room Air 07/17/17 23:45 36.8 57 17 123/58 (79) 97 Room Air Physical Exam General Appearance: WD/WN, no apparent distress Eyes: normal inspection, EOMI, sclerae normal ENT: normal ENT inspection, hearing grossly normal, pharynx normal Neck: supple, no adenopathy, thyroid normal, trachea midline Respiratory/Chest: chest non-tender, lungs clear, normal breath sounds, no respiratory distress Cardiovascular: regular rate, rhythm, no gallop, no murmur Abdomen: soft, no organomegaly, + tenderness Extremities: non-tender, no calf tenderness, normal capillary refill Neurologic/Psychiatric: alert, oriented x 3 Skin: normal color, warm/dry, no rash Lymphatic: no adenopathy Laboratory Results Last 24 Hours Test 07/18/17 05:50 07/18/17 06:50 07/18/17 20:21 Urine Color YELLOW Urine Appearance CLEAR Urine pH 5.0 Urine Specific [place] 1.024 Urine Protein NEG Urine Glucose (UA) NEG Urine Ketones NEG Urine Occult Blood NEG Urine Nitrite NEG Urine Bilirubin NEG Urine Urobilinogen NEG Urine Leukocyte Esterase SMALL Urine WBC (Auto) 1-5 /hpf Urine RBC (Auto) 0-4 /hpf Urine Hyaline Casts (Auto) 5-10 /lpf Urine Epithelial Cells (Auto) 20-30 /lpf Urine Bacteria (Auto) NEG Hemoglobin 8.8 g/dL 9.0 g/dL Hematocrit 27.4 % 27.4 % Sodium Level 144 mmol/L Potassium Level 3.2 mmol/L Chloride Level 110 mmol/L Carbon Dioxide Level 28 mmol/L Anion Gap 6.0 mmol/L Blood Urea Nitrogen 7 mg/dl Creatinine 0.63 mg/dl Est Creatinine Clear Calc Drug Dose 105.5 ml/min Estimated GFR () 115.7 Estimated GFR (Non- 99.8 BUN/Creatinine Ratio 11.4 Random Glucose 108 mg/dl Calcium Level 8.1 mg/dl Phosphorus Level 1.6 mg/dl Magnesium Level 2.2 mg/dl Total Bilirubin 0.4 mg/dl Direct Bilirubin 0.2 mg/dl Aspartate Amino Transf (AST/SGOT) 7 U/L Alanine Aminotransferase (ALT/SGPT) 11 U/L Alkaline Phosphatase 72 U/L Total Protein 5.4 gm/dl Albumin 2.3 gm/dl Globulin 3.1 gm/dl Albumin/Globulin Ratio 0.7 Free Thyroxine 1.55 ng/dl Assessment and Plan 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 Patient to be treated with prolonged tapering course of oral vancomycin therapy. Will continue to follow.
--- NOTE | 2017-07-18 23:02 | Progress Note ---
Medicine Progress Note Date & Time of Visit: Jul 18, 2017 at 11:00. Subjective 71 yo M s/p recent back surgery and rehab program presents with increased weakness and diarrhea after completing a course of vancomycin for c-diff colitis. -tolerating clear liquids -counseled to avoid dairy products or excessive caffeine to minimize diarrhea -pain is still present in abdomen and in his feet bilaterally -he reports a burning feeling in his feet and ankles, not improved after oxy restarted yesterday and Tylenol scheduled started. Objective Last 8 Hrs Date Time Temp Pulse Resp B/P (MAP) Pulse Ox O2 Delivery O2 Flow Rate FiO2 07/18/17 20:00 36.8 71 20 132/67 (88) 96 Room Air 07/18/17 20:00 Room Air 07/18/17 16:00 Room Air 07/18/17 15:43 36.8 71 26 132/67 (88) 96 Room Air 07/18/17 15:20 36.6 67 20 135/68 (90) 97 Room Air 75 120/64 (82) 81 111/63 (79) Physical Exam: GEN: WNWD, in no acute distress, alert and appropriate HEENT: NC/AT, PERRL, normal sclerae, MMM CARDIO: reg rate, S1/2 heard without m/g/r LUNGS: CTA bilaterally, no crackles, rales or wheezes, good diaphragmatic excursion ABD: soft, diffuse general tenderness, non-distended, no rebound or guarding, + BS EXTREMITY: RP and DP palpable 2+ bilat, no LE swelling or edema, extremities are warm and well-perfused L ankle: decreased flexion/extension/circumduction. Appears slightly swollen , TTP on bilateral malleoli. R ankle: normal ROM and no TTP NEURO: CN 2-12 grossly intact, sensation intact throughout MUSC: 5/5 strength throughout, no gross focal deficits SKIN: warm and dry, well healed scar down entire length of back vertically. Laboratory Results: 07/17/17 06:17 07/18/17 20:21 07/18/17 06:50 Test 07/16/17 15:15 07/16/17 15:17 07/17/17 06:17 07/18/17 05:50 Procalcitonin 0.09 ng/ml (0-0.5) Immature Granulocyte % (Auto) 0.4 % White Blood Count 7.55 K/uL (4.8-10.8) Red Blood Count 3.47 M/uL (4.7-6.1) 2.95 M/uL (4.7-6.1) Hemoglobin 9.4 g/dL (14.0-18.0) Hematocrit 29.2 % (42-52) Mean Corpuscular Volume 84.1 fL (80-100) 83.7 fL (80-100) Mean Corpuscular Hemoglobin 27.1 pg (25-34) 26.8 pg (25-34) Mean Corpuscular Hemoglobin Concent 32.2 g/dl (32-36) 32.0 g/dl (32-36) Platelet Count 277 K/uL (130-400) Mean Platelet Volume 10.0 fL (7.4-10.4) 9.4 fL (7.4-10.4) Neutrophils (%) (Auto) 86.3 % Lymphocytes (%) (Auto) 7.4 % Monocytes (%) (Auto) 5.7 % Eosinophils (%) (Auto) 0.1 % Basophils (%) (Auto) 0.1 % Neutrophils # (Auto) 6.51 K/uL (1.4-6.5) Lymphocytes # (Auto) 0.56 K/uL (1.2-3.4) Monocytes # (Auto) 0.43 K/uL (0.11-0.59) Eosinophils # (Auto) 0.01 K/uL (0-0.5) Basophils # (Auto) 0.01 K/uL (0-0.2) Immature Granulocyte # (Auto) 0.03 K/uL (0.00-0.02) Prothrombin Time 12.7 SECONDS (9.0-12.0) Prothromb Time International Ratio 1.2 (0.9-1.1) Activated Partial Thromboplast Time 25.4 SECONDS (21.0-31.0) Partial Thromboplastin Ratio 1.0 Total Creatine Kinase 23 U/L (39-308) Creatine Kinase MB 0.6 ng/ml (0.5-3.6) Creatine Kinase MB Ratio 2.6 (0-3.0) Troponin I < 0.015 ng/ml (0-0.045) Lipase 266 U/L (73-393) Thyroid Stimulating Hormone (TSH) 0.193 uIu/ml (0.300-4.500) RDW Standard Deviation 45.2 fL (36.4-46.3) RDW Coefficient of Variation 14.8 % (11.5-14.5) Lactic Acid Level 0.4 mmol/L (0.4-2.0) Urine Color YELLOW Urine Appearance CLEAR (CLEAR) Urine pH 5.0 (4.5-7.5) Urine Specific [place] 1.024 (1.000-1.030) Urine Protein NEG (NEG) Urine Glucose (UA) NEG (NEG) Urine Ketones NEG (NEG) Urine Occult Blood NEG (NEG) Urine Nitrite NEG (NEG) Urine Bilirubin NEG (NEG) Urine Urobilinogen NEG (NEG) Urine Leukocyte Esterase SMALL (NEG) Urine WBC (Auto) 1-5 /hpf (0-5) Urine RBC (Auto) 0-4 /hpf (0-4) Urine Hyaline Casts (Auto) 5-10 /lpf (0-5) Urine Epithelial Cells (Auto) 20-30 /lpf (0-5) Urine Bacteria (Auto) NEG (NEG) Test 07/18/17 06:50 Anion Gap 6.0 mmol/L (3-11) Est Creatinine Clear Calc Drug Dose 105.5 ml/min Estimated GFR () 115.7 Estimated GFR (Non- 99.8 BUN/Creatinine Ratio 11.4 (10-20) Calcium Level 8.1 mg/dl (8.5-10.1) Phosphorus Level 1.6 mg/dl (2.5-4.9) Magnesium Level 2.2 mg/dl (1.8-2.4) Total Bilirubin 0.4 mg/dl (0.2-1) Direct Bilirubin 0.2 mg/dl (0-0.2) Aspartate Amino Transf (AST/SGOT) 7 U/L (15-37) Alanine Aminotransferase (ALT/SGPT) 11 U/L (12-78) Alkaline Phosphatase 72 U/L (45-117) Total Protein 5.4 gm/dl (6.4-8.2) Albumin 2.3 gm/dl (3.4-5.0) Globulin 3.1 gm/dl (2.5-4.0) Albumin/Globulin Ratio 0.7 (0.9-2) Free Thyroxine 1.55 ng/dl (0.80-1.60) Date/Time Source Procedure Growth Status 07/16/17 15:18 Blood Blood Culture - Preliminary NO GROWTH TO DATE. Resulted 07/17/17 08:30 Stool C.difficile Toxin B Gene (PCR) - Final Positive for C. difficile toxin B gene Complete 07/18/17 05:50 Urine , Clean Catch Urine Culture Pending Received Last 24 Hours Test 07/18/17 05:50 07/18/17 06:50 07/18/17 20:21 Urine Color YELLOW Urine Appearance CLEAR Urine pH 5.0 Urine Specific [place] 1.024 Urine Protein NEG Urine Glucose (UA) NEG Urine Ketones NEG Urine Occult Blood NEG Urine Nitrite NEG Urine Bilirubin NEG Urine Urobilinogen NEG Urine Leukocyte Esterase SMALL Urine WBC (Auto) 1-5 /hpf Urine RBC (Auto) 0-4 /hpf Urine Hyaline Casts (Auto) 5-10 /lpf Urine Epithelial Cells (Auto) 20-30 /lpf Urine Bacteria (Auto) NEG Hemoglobin 8.8 g/dL 9.0 g/dL Hematocrit 27.4 % 27.4 % Sodium Level 144 mmol/L Potassium Level 3.2 mmol/L Chloride Level 110 mmol/L Carbon Dioxide Level 28 mmol/L Anion Gap 6.0 mmol/L Blood Urea Nitrogen 7 mg/dl Creatinine 0.63 mg/dl Est Creatinine Clear Calc Drug Dose 105.5 ml/min Estimated GFR () 115.7 Estimated GFR (Non- 99.8 BUN/Creatinine Ratio 11.4 Random Glucose 108 mg/dl Calcium Level 8.1 mg/dl Phosphorus Level 1.6 mg/dl Magnesium Level 2.2 mg/dl Total Bilirubin 0.4 mg/dl Direct Bilirubin 0.2 mg/dl Aspartate Amino Transf (AST/SGOT) 7 U/L Alanine Aminotransferase (ALT/SGPT) 11 U/L Alkaline Phosphatase 72 U/L Total Protein 5.4 gm/dl Albumin 2.3 gm/dl Globulin 3.1 gm/dl Albumin/Globulin Ratio 0.7 Free Thyroxine 1.55 ng/dl Date/Time Source Procedure Growth Status 07/18/17 05:50 Urine , Clean Catch Urine Culture Pending Received Assessment & Plan 71 yo M s/p recent back surgery and rehab program presents with increased weakness and diarrhea after completing a course of vancomycin for c-diff colitis. 1. Anemia 2/2 possible acute blood loss vs recent surgery vs hemodilution vs chronic disease. No bleeding noted in stool but it was blackish in color. Abdominal pain is generalized and CT reveals pancolitis without signs of obstruction or perforation. Placed on Vanc/Flagyl with Flagyl stopped per ID for recurrent c-diff infection. Apprec GI and ID recs. Discussed case with GI who is OK with stopping PPI drip. 2. C-diff pancolitis-cont Vanc. Cont per ID recs. 3. CAD/PVD-ASA continued in setting of CAD with prior stents. Plavix held in setting of possible bleed. Decreased dose of Lopressor in setting of bradycardia. Cont statin. 4. Ankle pain-acute in L with decreased ROM and pain to palpation of bilateral malleoli. Restarted oxy which was held on admission. Started APAP 1000 q8h. Restarting his gabapentin which was 600 TID when he left [facility] one month ago and was later stopped at rehab. 5. s/p back surgery-back pain is well controlled and wound is healing well without areas of erythema or drainage. Chest tube was placed intraoperatively for a PTX and was removed prior to discharge in late May. Post-op course also complicated by bout of c-diff for which he completed a two week course of vancomycin. PT/OT 6. Severe protein calorie nutrition related to recent surgery and recovery. Thirty lb weight loss. Tolerating PO. Apprec nutrition recs. 7. Hypokalemia likely related to diarrhea. Replace and repeat PRP in am. DVT proph-held in setting of poss bleed, SCDs. Full Code dispo-pending improvement in diarrhea and PT/OT evals. Pt lives alone at home. Poss rehab as transition to home again. Marsha Rivera DO [facility] Hospitalist Consultants: [facility]/Lobo BEAULIEU-Sharri Current Inpatient Medications: Current Inpatient Medications Medications (Trade) Dose Ordered Sig/Ananth Route Start Time Stop Time Status Last Admin Dose Admin Ioversol (Optiray 320) 100 ml UD PRN IV 07/16/17 16:45 07/20/17 16:44 Ondansetron HCl (Zofran Inj) 4 mg Q6H PRN IV 07/16/17 20:00 08/15/17 19:59 Vancomycin HCl (Vancomycin Oral Soln) 250 mg Q6 PO 07/17/17 00:00 07/27/17 00:00 07/18/17 18:10 250 MG Raspberry (Raspberry Syrup 5ml Cup) 5 ml Q6 PO 07/17/17 00:00 07/31/17 00:00 07/17/17 05:37 5 ML Diazepam (Valium Tab) 5 mg Q8 PRN PO 07/17/17 01:30 08/16/17 01:29 Nitroglycerin (Nitrostat Tab) 0.4 mg PRN UT 07/17/17 01:30 08/16/17 01:29 Miscellaneous Information (Order Awaiting Action) 1 ea QS N/A 07/17/17 08:00 08/16/17 07:59 Mupirocin (Bactroban 2% Oint) 1 appln BID INTNAS 07/17/17 09:00 08/16/17 08:59 07/18/17 20:56 1 APPLN Pantoprazole Sodium 40 mg/ Dextrose 100 ml @ 20 mls/hr Q5H IV 07/17/17 01:45 08/16/17 01:44 07/18/17 20:57 20 MLS/HR Fentanyl (Duragesic Patch) 25 mcg Q3D TD 07/17/17 09:00 07/31/17 08:59 07/17/17 09:41 25 MCG Miscellaneous (Fentanyl Patch Remove & Waste) 1 ea Q3D N/A 07/17/17 08:59 08/16/17 08:58 07/17/17 09:41 1 EA Miscellaneous Information (Check Fentanyl Patch Placement) 1 ea QS N/A 07/17/17 08:00 08/16/17 07:59 07/18/17 15:49 1 EA Aspirin (Ecotrin Tab) 81 mg Q2D@0900 PO 07/17/17 13:00 08/16/17 12:59 07/17/17 13:15 81 MG Rosuvastatin Calcium (Crestor Tab) 20 mg DAILY PO 07/17/17 13:00 08/16/17 12:59 07/18/17 10:16 20 MG Oxycodone HCl (Roxicodone Immediate Rel Tab) 20 mg TID PO 07/17/17 14:00 07/31/17 13:59 07/18/17 20:57 20 MG Acetaminophen (Tylenol Tab) 1,000 mg Q8 PO 07/17/17 14:00 08/16/17 13:59 07/18/17 22:20 1,000 MG Metoprolol Tartrate (Lopressor Tab) 25 mg BID PO 07/17/17 21:00 08/16/17 20:59 07/18/17 20:56 25 MG Gabapentin (Neurontin Tab) 600 mg TID PO 07/18/17 14:00 08/17/17 13:59 07/18/17 20:56 600 MG
[2017-07-19] VITALS (7 sets, daily range): BP systolic 96–140; BP diastolic 55–88; PULSE 17–86; TEMP 36.5–37; O2SAT 93–98
[2017-07-19] MEDS: VANCOMYCIN HCL 250 MG/5 ML SOLN PO SCH ×5 (00:14→23:56)
[2017-07-19] MEDS: RASPBERRY SYRUP 5 ML UDP PO SCH ×5 (06:00→23:56)
[2017-07-19] MEDS: ACETAMINOPHEN 500 MG TAB PO SCH ×3 (06:16→22:19)
[2017-07-19 06:39] LABS: HEMATOCRIT 29.3 % (42-52); HEMOGLOBIN 9.4 g/dL (14.0-18.0); MEAN CELL VOLUME 84.2 fL (80-100); MEAN CORPUSCULAR HGB CONC 32.1 g/dl (32-36); MEAN PLATELET VOLUME 9.6 fL (7.4-10.4); PLATELET COUNT 283 K/uL (130-400); RED CELL DISTRIBUTION WIDTH CV 15.2 % (11.5-14.5); RED CELL DISTRIBUTION WIDTH SD 47.2 fL (36.4-46.3); WHITE BLOOD COUNT 7.74 K/uL (4.8-10.8)
[2017-07-19 07:21] LABS: ALBUMIN 2.3 gm/dl (3.4-5.0); CALCIUM 7.9 mg/dl (8.5-10.1); CREATININE 0.59 mg/dl (0.60-1.40); PHOSPHORUS 2.5 mg/dl (2.5-4.9); POTASSIUM 3.8 mmol/L (3.5-5.1); TOTAL PROTEIN 5.4 gm/dl (6.4-8.2)
[2017-07-19] MEDS: OXYCODONE HCL IR 5 MG TAB (IMMEDIATE RELEASE) PO SCH ×3 (07:59→22:21)
[2017-07-19] MEDS: GABAPENTIN 600 MG TAB PO SCH ×3 (08:00→20:15)
[2017-07-19] MEDS: ROSUVASTATIN CALCIUM 20 MG TAB PO SCH (08:00)
[2017-07-19] MEDS: MUPIROCIN 2% OINT 22 GM TUBE INTNAS SCH ×2 (08:00→20:15)
[2017-07-19] MEDS: CHECK FENTANYL PATCH PLACEMENT SCH ×4 (08:00→22:56)
[2017-07-19] MEDS: ASPIRIN 81 MG ECTAB PO SCH (08:00)
[2017-07-19] MEDS: METOPROLOL TARTRATE 25 MG TAB PO SCH ×2 (08:00→20:15)
[2017-07-19] MEDS: CLOBETASOL~ORDER AWAITING ACTION SCH ×4 (08:00→23:38)
--- NOTE | 2017-07-19 09:29 | Progress Note ---
Internal Med Progress Note Date of Service: Jul 19, 2017. Provider Documentation: SUBJECTIVE: Seen and examined at bedside Reports generalized weakness, generalized abdominal pain Still has diarrhea, denies blood in stools, nausea Also denies chest pain, SOB OBJECTIVE: Vital Signs-as noted below Physical Exam: General Appearance:Moderately built and nourished, no apparent distress Head: normocephalic, Atraumatic Eyes: normal inspection, EOMI, PERRL Neck: supple, Trachea midline Respiratory/Chest: Decreased breath sounds, CTA Cardiovascular: S1, S2, No murmur Back:Vertical Surgical scar healing Abdomen/GI:Soft, diffuse tender, Bowel sounds present Extremities/Musculoskelatal:normal inspection, no edema Neurologic/Psych:grossly no focal neurological deficits Skin: normal color, warm Lab data as noted below. ASSESSMENT & PLAN: Patient is a 71 yr male s/p recent back surgery presents with increased weakness and diarrhea after completing a course of vancomycin for c-diff colitis. Anemia: Likely secondary to blood loss from recent surgery vs chronic disease. No signs of acute bleeding CT abd suggestive of Pancolitis without signs of obstruction or perforation. PPI discontinued Continue Abx for c.diff Monitor Hb Recurrent C.diff Colitis: Continue Vacomycin Appreciate ID and GI Input CAD/PVD S/P stents Continue ASA, statin Plan to resume Plavix as able Lopressor dose decreased 2/2 bradycardia Left Ankle pain: Continue oxy, APAP 1000 q8h, gabapentin 600 TID S/P Back surgery S/P Chest tube for Intraoperative PTX Severe protein calorie nutrition Likely related to recent surgery and infection Hypokalemia: Secondary to GI loses Replace and monitor DVT: SCDs for now Code Status: Full Code Disposition: PT/OT Pt lives alone at home May benefit from Rehab Vital Signs: Date Time Temp Pulse Resp B/P (MAP) Pulse Ox O2 Delivery O2 Flow Rate FiO2 07/19/17 08:00 Room Air 07/19/17 04:00 96 Room Air 07/19/17 04:00 36.8 70 18 138/69 (92) 97 74 104/69 (81) 86 108/66 (80) 07/19/17 00:00 96 Room Air 07/18/17 23:45 36.7 65 20 123/58 (79) 93 Room Air 07/18/17 20:00 36.8 71 20 132/67 (88) 96 Room Air 07/18/17 20:00 Room Air 07/18/17 16:00 Room Air 07/18/17 15:43 36.8 71 26 132/67 (88) 96 Room Air 07/18/17 15:20 36.6 67 20 135/68 (90) 97 Room Air 75 120/64 (82) 81 111/63 (79) 07/18/17 12:24 36.7 61 22 135/64 (87) 96 Room Air 07/18/17 12:00 Room Air Lab Results: Results Past 24 Hours Test 07/18/17 20:21 07/19/17 06:18 Range/Units Hemoglobin 9.0 9.4 14.0-18.0 g/dL Hematocrit 27.4 29.3 42-52 % White Blood Count 7.74 4.8-10.8 K/uL Red Blood Count 3.48 4.7-6.1 M/uL Mean Corpuscular Volume 84.2 80-100 fL Mean Corpuscular Hemoglobin 27.0 25-34 pg Mean Corpuscular Hemoglobin Concent 32.1 32-36 g/dl RDW Standard Deviation 47.2 36.4-46.3 fL RDW Coefficient of Variation 15.2 11.5-14.5 % Platelet Count 283 130-400 K/uL Mean Platelet Volume 9.6 7.4-10.4 fL Sodium Level 143 136-145 mmol/L Potassium Level 3.8 3.5-5.1 mmol/L Chloride Level 109 98-107 mmol/L Carbon Dioxide Level 29 21-32 mmol/L Anion Gap 5.0 3-11 mmol/L Blood Urea Nitrogen 5 7-18 mg/dl Creatinine 0.59 0.60-1.40 mg/dl Est Creatinine Clear Calc Drug Dose 112.7 ml/min Estimated GFR () 118.9 Estimated GFR (Non- 102.6 BUN/Creatinine Ratio 7.8 10-20 Random Glucose 85 70-99 mg/dl Calcium Level 7.9 8.5-10.1 mg/dl Phosphorus Level 2.5 2.5-4.9 mg/dl Magnesium Level 1.9 1.8-2.4 mg/dl Total Bilirubin 0.5 0.2-1 mg/dl Direct Bilirubin 0.2 0-0.2 mg/dl Aspartate Amino Transf (AST/SGOT) 5 15-37 U/L Alanine Aminotransferase (ALT/SGPT) 10 12-78 U/L Alkaline Phosphatase 81 45-117 U/L Total Protein 5.4 6.4-8.2 gm/dl Albumin 2.3 3.4-5.0 gm/dl Globulin 3.1 2.5-4.0 gm/dl Albumin/Globulin Ratio 0.7 0.9-2
--- NOTE | 2017-07-19 10:34 | Gastroenterology Progress Note ---
Progress Note Date of Service: Jul 19, 2017 Subjective Pt evaluation today including: conversation w/ patient, physical exam, chart review, lab review Pt was seen and evaluated, chart reviewed. On Vancomycin for c.diff. Has had improvement of his symptoms since admission. Notes less abdominal pain. Notes his stools are less frequent. Was having diarrhea every 30 minutes. Now w/ stools every 1-2 hours. He tells me he was having black stools, no longer having any black or bloody stools per pt. No UGI symptoms. No fever, chills, CP , SOB. Review of Systems Constitutional: + weakness, + fatigue, No fever, No chills, No sweats, No weight loss ENT: No hearing loss, No unusual epistaxis, No trouble swallowing Respiratory: No cough, No sputum, No wheezing, No shortness of breath Cardiac: No chest pain, No edema, No palpitations Abdomen: + pain, + diarrhea, No nausea, No vomiting, No constipation, No GI bleeding, No dysphagia, No odynophagia, No acolic stools, No jaundice Endo: No fatigue, No excessive thirst, No excessive urination Skin: No rash, No itch, No color change, No bleeding Medications Current Inpatient Medications Medications (Trade) Dose Ordered Sig/Ananth Route Start Time Stop Time Status Last Admin Dose Admin Ioversol (Optiray 320) 100 ml UD PRN IV 07/16/17 16:45 07/20/17 16:44 Ondansetron HCl (Zofran Inj) 4 mg Q6H PRN IV 07/16/17 20:00 08/15/17 19:59 Vancomycin HCl (Vancomycin Oral Soln) 250 mg Q6 PO 07/17/17 00:00 07/27/17 00:00 07/19/17 06:16 250 MG Raspberry (Raspberry Syrup 5ml Cup) 5 ml Q6 PO 07/17/17 00:00 07/31/17 00:00 07/17/17 05:37 5 ML Diazepam (Valium Tab) 5 mg Q8 PRN PO 07/17/17 01:30 08/16/17 01:29 07/19/17 00:15 5 MG Nitroglycerin (Nitrostat Tab) 0.4 mg PRN UT 07/17/17 01:30 08/16/17 01:29 Miscellaneous Information (Order Awaiting Action) 1 ea QS N/A 07/17/17 08:00 08/16/17 07:59 Mupirocin (Bactroban 2% Oint) 1 appln BID INTNAS 07/17/17 09:00 08/16/17 08:59 07/18/17 20:56 1 APPLN Fentanyl (Duragesic Patch) 25 mcg Q3D TD 07/17/17 09:00 07/31/17 08:59 07/17/17 09:41 25 MCG Miscellaneous (Fentanyl Patch Remove & Waste) 1 ea Q3D N/A 07/17/17 08:59 08/16/17 08:58 07/17/17 09:41 1 EA Miscellaneous Information (Check Fentanyl Patch Placement) 1 ea QS N/A 07/17/17 08:00 08/16/17 07:59 07/19/17 08:00 1 EA Aspirin (Ecotrin Tab) 81 mg Q2D@0900 PO 07/17/17 13:00 08/16/17 12:59 07/19/17 08:00 81 MG Rosuvastatin Calcium (Crestor Tab) 20 mg DAILY PO 07/17/17 13:00 08/16/17 12:59 07/19/17 08:00 20 MG Oxycodone HCl (Roxicodone Immediate Rel Tab) 20 mg TID PO 07/17/17 14:00 07/31/17 13:59 07/19/17 07:59 20 MG Acetaminophen (Tylenol Tab) 1,000 mg Q8 PO 07/17/17 14:00 08/16/17 13:59 07/19/17 06:16 1,000 MG Metoprolol Tartrate (Lopressor Tab) 25 mg BID PO 07/17/17 21:00 08/16/17 20:59 07/19/17 08:00 25 MG Gabapentin (Neurontin Tab) 600 mg TID PO 07/18/17 14:00 08/17/17 13:59 07/19/17 08:00 600 MG Objective Vital Signs Date Time Temp Pulse Resp B/P (MAP) Pulse Ox O2 Delivery O2 Flow Rate FiO2 07/19/17 08:00 Room Air 07/19/17 04:00 96 Room Air 07/19/17 04:00 36.8 70 18 138/69 (92) 97 74 104/69 (81) 86 108/66 (80) 07/19/17 00:00 96 Room Air 07/18/17 23:45 36.7 65 20 123/58 (79) 93 Room Air 07/18/17 20:00 36.8 71 20 132/67 (88) 96 Room Air 07/18/17 20:00 Room Air 07/18/17 16:00 Room Air 07/18/17 15:43 36.8 71 26 132/67 (88) 96 Room Air 07/18/17 15:20 36.6 67 20 135/68 (90) 97 Room Air 75 120/64 (82) 81 111/63 (79) 07/18/17 12:24 36.7 61 22 135/64 (87) 96 Room Air 07/18/17 12:00 Room Air Physical Exam General Appearance: no apparent distress Eyes: PERRL ENT: hearing grossly normal Neck: supple, no JVD, trachea midline Respiratory/Chest: lungs clear, normal breath sounds, no respiratory distress, no accessory muscle use Cardiovascular: regular rate, rhythm, no edema, no gallop, no JVD Abdomen: normal bowel sounds, soft, no organomegaly, no pulsatile mass, + tenderness (mild generalized tenderness without rebound or guarding) Neurologic/Psych: alert, normal mood/affect, oriented x 3 Skin: normal color, no jaundice, warm/dry, no rash Laboratory Results Last 24 Hours Test 07/18/17 20:21 07/19/17 06:18 Hemoglobin 9.0 g/dL 9.4 g/dL Hematocrit 27.4 % 29.3 % White Blood Count 7.74 K/uL Red Blood Count 3.48 M/uL Mean Corpuscular Volume 84.2 fL Mean Corpuscular Hemoglobin 27.0 pg Mean Corpuscular Hemoglobin Concent 32.1 g/dl RDW Standard Deviation 47.2 fL RDW Coefficient of Variation 15.2 % Platelet Count 283 K/uL Mean Platelet Volume 9.6 fL Sodium Level 143 mmol/L Potassium Level 3.8 mmol/L Chloride Level 109 mmol/L Carbon Dioxide Level 29 mmol/L Anion Gap 5.0 mmol/L Blood Urea Nitrogen 5 mg/dl Creatinine 0.59 mg/dl Est Creatinine Clear Calc Drug Dose 112.7 ml/min Estimated GFR () 118.9 Estimated GFR (Non- 102.6 BUN/Creatinine Ratio 7.8 Random Glucose 85 mg/dl Calcium Level 7.9 mg/dl Phosphorus Level 2.5 mg/dl Magnesium Level 1.9 mg/dl Total Bilirubin 0.5 mg/dl Direct Bilirubin 0.2 mg/dl Aspartate Amino Transf (AST/SGOT) 5 U/L Alanine Aminotransferase (ALT/SGPT) 10 U/L Alkaline Phosphatase 81 U/L Total Protein 5.4 gm/dl Albumin 2.3 gm/dl Globulin 3.1 gm/dl Albumin/Globulin Ratio 0.7 Assessment and Plan 71 year old male with recurrent c.diff colitis on IV flagyl and PO vancomycin since admission w/ little improvement of his symptoms - has continued abdominal pain, diarrhea. - Continue PO vancomycin QID x 14 days with taper Vanco 125 QID x 14 days Vanco 125 BID x 7 days Vanco 125 daily x 7 days Vanco 125 every other day x 7 days Vanco 125 every third day x 14 days - Ok to D/C IV flagyl at recommendation of ED - Ok to D/C IV PPI - PO PPI daily - Bentyl 10 mg TID as needed for pain Pt is clinically improving w/ stable H&H. GI to sign off. Please call with any questions or concerns. ATTESTATION: I have performed a history and physical examination of this patient and reviewed the electronic record. Specifically, on physical examination there is mild abdominal tenderness. I have discussed the case with TODD Jade. The above note reflects my findings, conclusions, and recommendations. Rishi Williamson MD
--- NOTE | 2017-07-19 20:23 | Infectious Disease Progress Nt ---
Progress Note Date of Service Jul 19, 2017. Subjective Pt evaluation today including: conversation w/ patient, physical exam, chart review, lab review, review of studies, conversation w/ showroom sales consultant, review of inpatient medication list Patient states abdominal pain slightly better. Diarrhea slightly less. No new complaints. Remains afebrile. All Other Systems: Reviewed and Negative Medications Current Inpatient Medications Medications (Trade) Dose Ordered Sig/Ananth Route Start Time Stop Time Status Last Admin Dose Admin Ioversol (Optiray 320) 100 ml UD PRN IV 07/16/17 16:45 07/20/17 16:44 Ondansetron HCl (Zofran Inj) 4 mg Q6H PRN IV 07/16/17 20:00 08/15/17 19:59 Vancomycin HCl (Vancomycin Oral Soln) 250 mg Q6 PO 07/17/17 00:00 07/27/17 00:00 07/19/17 17:05 250 MG Raspberry (Raspberry Syrup 5ml Cup) 5 ml Q6 PO 07/17/17 00:00 07/31/17 00:00 07/17/17 05:37 5 ML Diazepam (Valium Tab) 5 mg Q8 PRN PO 07/17/17 01:30 08/16/17 01:29 07/19/17 00:15 5 MG Nitroglycerin (Nitrostat Tab) 0.4 mg PRN UT 07/17/17 01:30 08/16/17 01:29 Miscellaneous Information (Order Awaiting Action) 1 ea QS N/A 07/17/17 08:00 08/16/17 07:59 Mupirocin (Bactroban 2% Oint) 1 appln BID INTNAS 07/17/17 09:00 08/16/17 08:59 07/18/17 20:56 1 APPLN Fentanyl (Duragesic Patch) 25 mcg Q3D TD 07/17/17 09:00 07/31/17 08:59 07/17/17 09:41 25 MCG Miscellaneous (Fentanyl Patch Remove & Waste) 1 ea Q3D N/A 07/17/17 08:59 08/16/17 08:58 07/17/17 09:41 1 EA Miscellaneous Information (Check Fentanyl Patch Placement) 1 ea QS N/A 07/17/17 08:00 08/16/17 07:59 07/19/17 17:05 1 EA Aspirin (Ecotrin Tab) 81 mg Q2D@0900 PO 07/17/17 13:00 08/16/17 12:59 07/19/17 08:00 81 MG Rosuvastatin Calcium (Crestor Tab) 20 mg DAILY PO 07/17/17 13:00 08/16/17 12:59 07/19/17 08:00 20 MG Oxycodone HCl (Roxicodone Immediate Rel Tab) 20 mg TID PO 07/17/17 14:00 07/31/17 13:59 07/19/17 17:04 20 MG Acetaminophen (Tylenol Tab) 1,000 mg Q8 PO 07/17/17 14:00 08/16/17 13:59 07/19/17 17:05 1,000 MG Metoprolol Tartrate (Lopressor Tab) 25 mg BID PO 07/17/17 21:00 08/16/17 20:59 07/19/17 20:15 25 MG Gabapentin (Neurontin Tab) 600 mg TID PO 07/18/17 14:00 08/17/17 13:59 07/19/17 20:15 600 MG Objective Vital Signs Date Time Temp Pulse Resp B/P (MAP) Pulse Ox O2 Delivery O2 Flow Rate FiO2 07/19/17 19:39 37.0 81 19 119/60 (79) 94 Room Air 85 96/66 (76) 80 116/88 (97) 07/19/17 16:05 36.5 62 19 113/58 (76) 98 Nasal Cannula 2.0 07/19/17 16:00 Room Air 07/19/17 15:12 36.6 74 18 140/71 (94) 97 Room Air 07/19/17 12:00 Room Air 07/19/17 11:57 36.9 77 18 117/65 (82) 97 Room Air 07/19/17 08:00 Room Air 07/19/17 04:00 96 Room Air 07/19/17 04:00 36.8 70 18 138/69 (92) 97 74 104/69 (81) 86 108/66 (80) 07/19/17 00:00 96 Room Air 07/18/17 23:45 36.7 65 20 123/58 (79) 93 Room Air Physical Exam General Appearance: WD/WN, no apparent distress Eyes: normal inspection, EOMI, sclerae normal ENT: normal ENT inspection, pharynx normal Neck: supple, no adenopathy, thyroid normal, trachea midline Respiratory/Chest: chest non-tender, lungs clear, normal breath sounds, no respiratory distress Cardiovascular: regular rate, rhythm, no gallop, no murmur Abdomen: normal bowel sounds, soft, no organomegaly, + tenderness Extremities: non-tender, no calf tenderness Neurologic/Psychiatric: alert, oriented x 3 Skin: normal color, warm/dry, no rash Lymphatic: no adenopathy Laboratory Results Last 24 Hours Test 07/18/17 20:21 07/19/17 06:18 Hemoglobin 9.0 g/dL 9.4 g/dL Hematocrit 27.4 % 29.3 % White Blood Count 7.74 K/uL Red Blood Count 3.48 M/uL Mean Corpuscular Volume 84.2 fL Mean Corpuscular Hemoglobin 27.0 pg Mean Corpuscular Hemoglobin Concent 32.1 g/dl RDW Standard Deviation 47.2 fL RDW Coefficient of Variation 15.2 % Platelet Count 283 K/uL Mean Platelet Volume 9.6 fL Sodium Level 143 mmol/L Potassium Level 3.8 mmol/L Chloride Level 109 mmol/L Carbon Dioxide Level 29 mmol/L Anion Gap 5.0 mmol/L Blood Urea Nitrogen 5 mg/dl Creatinine 0.59 mg/dl Est Creatinine Clear Calc Drug Dose 112.7 ml/min Estimated GFR () 118.9 Estimated GFR (Non- 102.6 BUN/Creatinine Ratio 7.8 Random Glucose 85 mg/dl Calcium Level 7.9 mg/dl Phosphorus Level 2.5 mg/dl Magnesium Level 1.9 mg/dl Total Bilirubin 0.5 mg/dl Direct Bilirubin 0.2 mg/dl Aspartate Amino Transf (AST/SGOT) 5 U/L Alanine Aminotransferase (ALT/SGPT) 10 U/L Alkaline Phosphatase 81 U/L Total Protein 5.4 gm/dl Albumin 2.3 gm/dl Globulin 3.1 gm/dl Albumin/Globulin Ratio 0.7 Assessment and Plan 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 Patient to be treated with prolonged tapering course of oral vancomycin therapy. Will continue to follow.
[2017-07-20] MEDS: RASPBERRY SYRUP 5 ML UDP PO SCH ×3 (05:27→18:08)
[2017-07-20] MEDS: VANCOMYCIN HCL 250 MG/5 ML SOLN PO SCH ×3 (05:27→18:08)
[2017-07-20] MEDS: ACETAMINOPHEN 500 MG TAB PO SCH ×3 (05:29→21:24)
[2017-07-20 05:30] VITALS: BP 153/73; PULSE 69; TEMP 36.7; O2SAT 95
[2017-07-20 06:36] LABS: HEMATOCRIT 30.2 % (42-52); HEMOGLOBIN 9.6 g/dL (14.0-18.0); MEAN CELL VOLUME 84.6 fL (80-100); MEAN CORPUSCULAR HEMOGLOBIN 26.9 pg (25-34); MEAN CORPUSCULAR HGB CONC 31.8 g/dl (32-36); MEAN PLATELET VOLUME 9.9 fL (7.4-10.4); PLATELET COUNT 296 K/uL (130-400); RED CELL DISTRIBUTION WIDTH CV 15.3 % (11.5-14.5); RED CELL DISTRIBUTION WIDTH SD 47.5 fL (36.4-46.3); WHITE BLOOD COUNT 8.25 K/uL (4.8-10.8)
[2017-07-20 07:01] LABS: CALCIUM 8.2 mg/dl (8.5-10.1); CREATININE 0.69 mg/dl (0.60-1.40); POTASSIUM 3.3 mmol/L (3.5-5.1)
[2017-07-20 07:43] VITALS: BP_SYST 117; BP_SYST 119; BP_SYST 129; BP_DIAS 59; BP_DIAS 62; BP_DIAS 68; PULSE 116; PULSE 65; PULSE 69; TEMP 36.5; O2SAT 98
[2017-07-20] MEDS: CLOBETASOL~ORDER AWAITING ACTION SCH ×3 (08:00→23:59)
[2017-07-20] MEDS: CHECK FENTANYL PATCH PLACEMENT SCH ×2 (08:00→16:20)
[2017-07-20] MEDS: OXYCODONE HCL IR 5 MG TAB (IMMEDIATE RELEASE) PO SCH ×3 (09:37→21:24)
[2017-07-20] MEDS: GABAPENTIN 600 MG TAB PO SCH ×3 (09:37→21:24)
[2017-07-20] MEDS: ROSUVASTATIN CALCIUM 20 MG TAB PO SCH (09:37)
[2017-07-20] MEDS: METOPROLOL TARTRATE 25 MG TAB PO SCH ×2 (09:38→21:24)
[2017-07-20] MEDS: MUPIROCIN 2% OINT 22 GM TUBE INTNAS SCH ×2 (09:38→21:20)
[2017-07-20] MEDS: FENTANYL PATCH REMOVE & WASTE SCH (09:40)
[2017-07-20] MEDS: FENTANYL 25 MCG/HR TDSY TD SCH (09:42)
[2017-07-20] MEDS ORDERED: POTASSIUM CHLORIDE 10 MEQ TABCR PO ONE (10:45)
--- NOTE | 2017-07-20 11:00 | Progress Note ---
Internal Med Progress Note Date of Service: Jul 20, 2017. Provider Documentation: SUBJECTIVE: Seen and examined at bedside Diarrhea slowly improving Abd pain about the same Denies chest pain, SOB No other complaints OBJECTIVE: Vital Signs-as noted below Physical Exam: General Appearance:Moderately built and nourished, no apparent distress Head: normocephalic, Atraumatic Eyes: normal inspection, EOMI, PERRL Neck: supple, Trachea midline Respiratory/Chest: Decreased breath sounds, CTA Cardiovascular: S1, S2, No murmur Back:Vertical Surgical scar healing Abdomen/GI:Soft, diffuse tender, Bowel sounds present Extremities/Musculoskelatal:normal inspection, no edema Neurologic/Psych:grossly no focal neurological deficits Skin: normal color, warm Lab data as noted below. ASSESSMENT & PLAN: Patient is a 71 yr male s/p recent back surgery presents with increased weakness and diarrhea after completing a course of vancomycin for c-diff colitis. Anemia: Likely secondary to blood loss from recent surgery vs chronic disease. No signs of acute bleeding CT abd suggestive of Pancolitis without signs of obstruction or perforation. IV PPI discontinued Continue Abx for c.diff Monitor Hb:9.6 today Recurrent C.diff Colitis: Continue Vancomycin Appreciate ID and GI Input Hypokalemia: Secondary to diarrhea Replace and monitor CAD/PVD S/P stents Continue ASA, statin Plan to resume Plavix tomorrow if Hb stable Lopressor dose decreased 2/2 bradycardia Left Ankle pain: Continue oxy, APAP 1000 q8h, gabapentin 600 TID S/P Back surgery S/P Chest tube for Intraoperative PTX Severe protein calorie nutrition Likely related to recent surgery and infection DVT: SCDs for now Code Status: Full Code Disposition: PT/OT Pt lives alone at home May benefit from Rehab Vital Signs: Date Time Temp Pulse Resp B/P (MAP) Pulse Ox O2 Delivery O2 Flow Rate FiO2 07/20/17 08:00 Room Air 07/20/17 07:43 36.5 65 18 129/68 (88) 98 Room Air 69 117/59 (78) 116 119/62 (81) 07/20/17 05:30 36.7 69 17 153/73 (99) 95 Room Air 07/20/17 04:00 Room Air 07/19/17 23:59 Room Air 07/19/17 23:43 36.7 57 17 114/55 (74) 93 Room Air 07/19/17 20:00 Room Air 07/19/17 19:39 37.0 81 19 119/60 (79) 94 Room Air 85 96/66 (76) 80 116/88 (97) 07/19/17 16:05 36.5 62 19 113/58 (76) 98 Nasal Cannula 2.0 07/19/17 16:00 Room Air 07/19/17 15:12 36.6 74 18 140/71 (94) 97 Room Air 07/19/17 12:00 Room Air 07/19/17 11:57 36.9 77 18 117/65 (82) 97 Room Air Lab Results: Results Past 24 Hours Test 07/20/17 06:00 Range/Units White Blood Count 8.25 4.8-10.8 K/uL Red Blood Count 3.57 4.7-6.1 M/uL Hemoglobin 9.6 14.0-18.0 g/dL Hematocrit 30.2 42-52 % Mean Corpuscular Volume 84.6 80-100 fL Mean Corpuscular Hemoglobin 26.9 25-34 pg Mean Corpuscular Hemoglobin Concent 31.8 32-36 g/dl RDW Standard Deviation 47.5 36.4-46.3 fL RDW Coefficient of Variation 15.3 11.5-14.5 % Platelet Count 296 130-400 K/uL Mean Platelet Volume 9.9 7.4-10.4 fL Sodium Level 141 136-145 mmol/L Potassium Level 3.3 3.5-5.1 mmol/L Chloride Level 105 98-107 mmol/L Carbon Dioxide Level 28 21-32 mmol/L Anion Gap 8.0 3-11 mmol/L Blood Urea Nitrogen 5 7-18 mg/dl Creatinine 0.69 0.60-1.40 mg/dl Est Creatinine Clear Calc Drug Dose 96.4 ml/min Estimated GFR () 111.5 Estimated GFR (Non- 96.2 BUN/Creatinine Ratio 6.8 10-20 Random Glucose 96 70-99 mg/dl Calcium Level 8.2 8.5-10.1 mg/dl Magnesium Level 2.1 1.8-2.4 mg/dl
[2017-07-20 11:05] VITALS: BP 108/64; PULSE 80; TEMP 36.6; O2SAT 99
--- NOTE | 2017-07-20 13:55 | Infectious Disease Progress Nt ---
Progress Note Date of Service Jul 20, 2017. Subjective Pt evaluation today including: conversation w/ patient, physical exam, chart review, lab review, review of studies, conversation w/ health care consultant, review of inpatient medication list Patient offers no new complaints today. Diarrhea has improved, only 3 bowel movements yesterday, 1 thus far today. Abdominal pain slightly better. No fever. All Other Systems: Reviewed and Negative Medications Current Inpatient Medications Medications (Trade) Dose Ordered Sig/Ananth Route Start Time Stop Time Status Last Admin Dose Admin Ioversol (Optiray 320) 100 ml UD PRN IV 07/16/17 16:45 07/20/17 16:44 Ondansetron HCl (Zofran Inj) 4 mg Q6H PRN IV 07/16/17 20:00 08/15/17 19:59 Vancomycin HCl (Vancomycin Oral Soln) 250 mg Q6 PO 07/17/17 00:00 07/27/17 00:00 07/20/17 12:24 250 MG Raspberry (Raspberry Syrup 5ml Cup) 5 ml Q6 PO 07/17/17 00:00 07/31/17 00:00 07/17/17 05:37 5 ML Diazepam (Valium Tab) 5 mg Q8 PRN PO 07/17/17 01:30 08/16/17 01:29 07/19/17 00:15 5 MG Nitroglycerin (Nitrostat Tab) 0.4 mg PRN UT 07/17/17 01:30 08/16/17 01:29 Miscellaneous Information (Order Awaiting Action) 1 ea QS N/A 07/17/17 08:00 08/16/17 07:59 Mupirocin (Bactroban 2% Oint) 1 appln BID INTNAS 07/17/17 09:00 08/16/17 08:59 07/18/17 20:56 1 APPLN Fentanyl (Duragesic Patch) 25 mcg Q3D TD 07/17/17 09:00 07/31/17 08:59 07/20/17 09:42 25 MCG Miscellaneous (Fentanyl Patch Remove & Waste) 1 ea Q3D N/A 07/17/17 08:59 08/16/17 08:58 07/20/17 09:40 1 EA Miscellaneous Information (Check Fentanyl Patch Placement) 1 ea QS N/A 07/17/17 08:00 08/16/17 07:59 07/20/17 08:00 1 EA Aspirin (Ecotrin Tab) 81 mg Q2D@0900 PO 07/17/17 13:00 08/16/17 12:59 07/19/17 08:00 81 MG Rosuvastatin Calcium (Crestor Tab) 20 mg DAILY PO 07/17/17 13:00 08/16/17 12:59 07/20/17 09:37 20 MG Oxycodone HCl (Roxicodone Immediate Rel Tab) 20 mg TID PO 07/17/17 14:00 07/31/17 13:59 07/20/17 09:37 20 MG Acetaminophen (Tylenol Tab) 1,000 mg Q8 PO 07/17/17 14:00 08/16/17 13:59 07/20/17 05:29 1,000 MG Metoprolol Tartrate (Lopressor Tab) 25 mg BID PO 07/17/17 21:00 08/16/17 20:59 07/20/17 09:38 25 MG Gabapentin (Neurontin Tab) 600 mg TID PO 07/18/17 14:00 08/17/17 13:59 07/20/17 09:37 600 MG Objective Vital Signs Date Time Temp Pulse Resp B/P (MAP) Pulse Ox O2 Delivery O2 Flow Rate FiO2 07/20/17 12:00 Room Air 07/20/17 11:05 36.6 80 19 108/64 (79) 99 Room Air 07/20/17 08:00 Room Air 07/20/17 07:43 36.5 65 18 129/68 (88) 98 Room Air 69 117/59 (78) 116 119/62 (81) 07/20/17 05:30 36.7 69 17 153/73 (99) 95 Room Air 07/20/17 04:00 Room Air 07/19/17 23:59 Room Air 07/19/17 23:43 36.7 57 17 114/55 (74) 93 Room Air 07/19/17 20:00 Room Air 07/19/17 19:39 37.0 81 19 119/60 (79) 94 Room Air 85 96/66 (76) 80 116/88 (97) 07/19/17 16:05 36.5 62 19 113/58 (76) 98 Nasal Cannula 2.0 07/19/17 16:00 Room Air 07/19/17 15:12 36.6 74 18 140/71 (94) 97 Room Air Physical Exam General Appearance: WD/WN, no apparent distress Eyes: normal inspection, EOMI, sclerae normal ENT: normal ENT inspection, pharynx normal Neck: supple, no adenopathy, thyroid normal, trachea midline Respiratory/Chest: lungs clear, normal breath sounds, no respiratory distress Cardiovascular: regular rate, rhythm, no gallop, no murmur Abdomen: normal bowel sounds, soft, no organomegaly, + tenderness (Improved) Extremities: non-tender, no calf tenderness Neurologic/Psychiatric: alert, oriented x 3 Skin: normal color, no rash Lymphatic: no adenopathy Laboratory Results RUN DATE: 07/20/17 [facility] LAB PAGE 1 RUN TIME: 1207 Specimen Inquiry PATIENT: CHINO ROBBINS LOC: [facility] U # : [id number] AGE/SX: 71/M ROOM: [facility] REG : 07/16/[address]: Bridger Nash MD : [id number] BED: 1 DIS : STATUS: ADM IN TLOC: SPEC #: [id number] [place]: 07/18/17-2255 STATUS: COMP REQ #: [id number] RECD: 07/18/17 [facility] DR: Jeremias Gil MD SOURCE: UR, CC ENTR: 07/18/[address] [facility] DR: Jon[facility] Harrell [facility] Tank Multani D.O., Ayesha H., M.D. Sumner, Sabrina M., DO Schneider, Donald S., MD ORDERED: CULTURE ZELDAANTONIETAALMA ROSA COMMENTS: Comments to [employer] SAME TIME, DIFFERENT SITES Has Specimen Been Obtained/Collected? Y Procedure Result Verified Site URINE CULTURE Final 07/20/17-120 THREE TYPES OF ORGANISMS PRESENT, ALL LOW COUNTS PROBABLE SKIN MINISTERIO. NO FURTHER IDENTIFICATIONS OR SENSITIVITIES TO FOLLOW. Last 24 Hours Test 07/20/17 06:00 White Blood Count 8.25 K/uL Red Blood Count 3.57 M/uL Hemoglobin 9.6 g/dL Hematocrit 30.2 % Mean Corpuscular Volume 84.6 fL Mean Corpuscular Hemoglobin 26.9 pg Mean Corpuscular Hemoglobin Concent 31.8 g/dl RDW Standard Deviation 47.5 fL RDW Coefficient of Variation 15.3 % Platelet Count 296 K/uL Mean Platelet Volume 9.9 fL Sodium Level 141 mmol/L Potassium Level 3.3 mmol/L Chloride Level 105 mmol/L Carbon Dioxide Level 28 mmol/L Anion Gap 8.0 mmol/L Blood Urea Nitrogen 5 mg/dl Creatinine 0.69 mg/dl Est Creatinine Clear Calc Drug Dose 96.4 ml/min Estimated GFR () 111.5 Estimated GFR (Non- 96.2 BUN/Creatinine Ratio 6.8 Random Glucose 96 mg/dl Calcium Level 8.2 mg/dl Magnesium Level 2.1 mg/dl Assessment and Plan 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 Patient to be treated with prolonged tapering course of oral vancomycin therapy. Will continue to follow.
[2017-07-20 15:45] VITALS: BP_SYST 105; BP_SYST 108; BP_SYST 128; BP_DIAS 60; BP_DIAS 67; PULSE 75; PULSE 78; PULSE 80; TEMP 36.7; O2SAT 98
[2017-07-20 23:53] VITALS: BP 125/54; PULSE 65; TEMP 36.8; O2SAT 93
[2017-07-21] VITALS (8 sets, daily range): BP systolic 84–140; BP diastolic 51–72; PULSE 62–83; TEMP 36.5–36.6; O2SAT 93–97
[2017-07-21] MEDS: CHECK FENTANYL PATCH PLACEMENT SCH ×4 (00:09→23:40)
[2017-07-21] MEDS: VANCOMYCIN HCL 250 MG/5 ML SOLN PO SCH ×5 (05:33→23:39)
[2017-07-21] MEDS: RASPBERRY SYRUP 5 ML UDP PO SCH ×5 (05:33→23:39)
[2017-07-21] MEDS: ACETAMINOPHEN 500 MG TAB PO SCH ×3 (05:34→22:02)
[2017-07-21 06:45] LABS: HEMATOCRIT 27.1 % (42-52); HEMOGLOBIN 8.5 g/dL (14.0-18.0)
[2017-07-21 07:20] LABS: CALCIUM 8.2 mg/dl (8.5-10.1); CREATININE 0.66 mg/dl (0.60-1.40); POTASSIUM 3.5 mmol/L (3.5-5.1)
[2017-07-21] MEDS: MUPIROCIN 2% OINT 22 GM TUBE INTNAS SCH ×2 (07:54→19:43)
[2017-07-21] MEDS: OXYCODONE HCL IR 5 MG TAB (IMMEDIATE RELEASE) PO SCH ×3 (07:54→19:46)
[2017-07-21] MEDS: ASPIRIN 81 MG ECTAB PO SCH (07:55)
[2017-07-21] MEDS: GABAPENTIN 600 MG TAB PO SCH ×3 (07:55→19:46)
[2017-07-21] MEDS: METOPROLOL TARTRATE 25 MG TAB PO SCH ×2 (07:55→19:46)
[2017-07-21] MEDS: ROSUVASTATIN CALCIUM 20 MG TAB PO SCH (07:55)
[2017-07-21] MEDS: CLOBETASOL~ORDER AWAITING ACTION SCH ×3 (08:00→23:40)
--- NOTE | 2017-07-21 09:32 | Progress Note ---
Internal Med Progress Note Date of Service: Jul 21, 2017. Provider Documentation: SUBJECTIVE: Seen and examined at bedside Abdominal pain slowly improving Diarrhea is improving as well Denies chest pain, SOB Reports ankle pain since back surgery No other complaints OBJECTIVE: Vital Signs-as noted below Physical Exam: General Appearance:Moderately built and nourished, no apparent distress Head: normocephalic, Atraumatic Eyes: normal inspection, EOMI, PERRL Neck: supple, Trachea midline Respiratory/Chest: Normal breath sounds, CTA Cardiovascular: S1, S2, No murmur Back:Vertical Surgical scar healing Abdomen/GI:Soft, diffuse tender, Bowel sounds present Extremities/Musculoskelatal:normal inspection, no edema Neurologic/Psych:grossly no focal neurological deficits Skin: normal color, warm Lab data as noted below. ASSESSMENT & PLAN: Patient is a 71 yr male s/p recent back surgery presents with increased weakness and diarrhea after completing a course of vancomycin for c-diff colitis. Anemia: Likely secondary to blood loss from recent surgery vs chronic disease. No signs of acute bleeding CT abd suggestive of Pancolitis without signs of obstruction or perforation. IV PPI discontinued Continue Abx for c.diff Monitor Hb:8.5 today Recurrent C.diff Colitis: Continue Vancomycin as per ID/GI Appreciate ID and GI Input Hypokalemia: Secondary to diarrhea Replace and monitor CAD/PVD S/P stents Continue ASA, statin Plan to resume Plavix tomorrow if Hb stable Lopressor dose decreased 2/2 bradycardia Left Ankle pain: Continue oxy, APAP 1000 q8h, gabapentin 600 TID S/P Back surgery S/P Chest tube for Intraoperative PTX Severe protein calorie nutrition Likely related to recent surgery and infection DVT: SCDs for now Code Status: Full Code Disposition: Patient denies rehab/SNF placement and prefers HH instead PT/OT Pt lives alone at home Vital Signs: Date Time Temp Pulse Resp B/P (MAP) Pulse Ox O2 Delivery O2 Flow Rate FiO2 07/21/17 07:52 36.6 62 18 135/67 (89) 93 Room Air 66 111/65 (80) 76 103/61 (75) 07/21/17 04:00 Room Air 07/21/17 03:45 36.5 74 16 140/72 (94) 97 Room Air 80 115/68 (84) 83 110/66 (81) 07/21/17 00:00 Room Air 07/20/17 23:53 36.8 65 16 125/54 (77) 93 Room Air 07/20/17 20:26 Room Air 07/20/17 16:01 Room Air 07/20/17 15:45 36.7 75 18 128/67 (87) 98 Room Air 78 108/60 (76) 80 105/60 (75) 07/20/17 12:00 Room Air 07/20/17 11:05 36.6 80 19 108/64 (79) 99 Room Air Lab Results: Results Past 24 Hours Test 07/21/17 06:24 Range/Units Hemoglobin 8.5 14.0-18.0 g/dL Hematocrit 27.1 42-52 % Sodium Level 142 136-145 mmol/L Potassium Level 3.5 3.5-5.1 mmol/L Chloride Level 107 98-107 mmol/L Carbon Dioxide Level 31 21-32 mmol/L Anion Gap 5.0 3-11 mmol/L Blood Urea Nitrogen 6 7-18 mg/dl Creatinine 0.66 0.60-1.40 mg/dl Est Creatinine Clear Calc Drug Dose 100.7 ml/min Estimated GFR () 113.5 Estimated GFR (Non- 98.0 BUN/Creatinine Ratio 9.6 10-20 Random Glucose 95 70-99 mg/dl Calcium Level 8.2 8.5-10.1 mg/dl
[2017-07-21] MEDS ORDERED: POTASSIUM CHLORIDE 10 MEQ TABCR PO ONE (10:00)
[2017-07-22] VITALS (8 sets, daily range): BP systolic 90–132; BP diastolic 52–71; PULSE 57–72; TEMP 36.5–36.7; O2SAT 94–98
[2017-07-22] MEDS: VANCOMYCIN HCL 250 MG/5 ML SOLN PO SCH ×4 (06:09→23:57)
[2017-07-22] MEDS: RASPBERRY SYRUP 5 ML UDP PO SCH ×4 (06:09→23:57)
[2017-07-22] MEDS: ACETAMINOPHEN 500 MG TAB PO SCH ×3 (06:10→22:59)
[2017-07-22 07:53] LABS: HEMATOCRIT 27.5 % (42-52); HEMOGLOBIN 8.4 g/dL (14.0-18.0)
[2017-07-22] MEDS: OXYCODONE HCL IR 5 MG TAB (IMMEDIATE RELEASE) PO SCH ×3 (07:58→20:11)
[2017-07-22] MEDS: GABAPENTIN 600 MG TAB PO SCH ×3 (07:58→20:06)
[2017-07-22] MEDS: ROSUVASTATIN CALCIUM 20 MG TAB PO SCH (07:58)
[2017-07-22] MEDS: METOPROLOL TARTRATE 25 MG TAB PO SCH ×2 (07:58→20:07)
[2017-07-22] MEDS: MUPIROCIN 2% OINT 22 GM TUBE INTNAS SCH ×2 (07:59→20:00)
[2017-07-22] MEDS: CLOBETASOL~ORDER AWAITING ACTION SCH ×3 (07:59→23:46)
[2017-07-22] MEDS: CHECK FENTANYL PATCH PLACEMENT SCH ×3 (08:00→23:46)
[2017-07-22 08:24] LABS: CALCIUM 8.2 mg/dl (8.5-10.1); CREATININE 0.66 mg/dl (0.60-1.40); POTASSIUM 3.8 mmol/L (3.5-5.1)
--- NOTE | 2017-07-22 17:33 | Progress Note ---
Internal Med Progress Note Date of Service: Jul 22, 2017. Provider Documentation: SUBJECTIVE: Seen and examined at bedside Abdominal pain better Had only 2 BMs today Denies chest pain, SOB No other complaints OBJECTIVE: Vital Signs-as noted below Physical Exam: General Appearance:Moderately built and nourished, no apparent distress Head: normocephalic, Atraumatic Eyes: normal inspection, EOMI, PERRL Neck: supple, Trachea midline Respiratory/Chest: Normal breath sounds, CTA Cardiovascular: S1, S2, No murmur Back:Vertical Surgical scar healing Abdomen/GI:Soft, diffuse tender, Bowel sounds present Extremities/Musculoskelatal:normal inspection, no edema Neurologic/Psych:grossly no focal neurological deficits Skin: normal color, warm Lab data as noted below. ASSESSMENT & PLAN: Patient is a 71 yr male s/p recent back surgery presents with increased weakness and diarrhea after completing a course of vancomycin for c-diff colitis. Anemia: Likely secondary to blood loss from recent surgery vs chronic disease. No signs of acute bleeding CT abd suggestive of Pancolitis without signs of obstruction or perforation. IV PPI discontinued Continue Abx for c.diff Monitor Hb Stable Recurrent C.diff Colitis: Continue Vancomycin as per ID/GI Appreciate ID and GI Input Hypokalemia: Secondary to diarrhea Resolved monitor CAD/PVD S/P stents Continue ASA, statin, Plavix Lopressor dose decreased 2/2 bradycardia Left Ankle pain: Continue oxy, APAP 1000 q8h, gabapentin 600 TID S/P Back surgery S/P Chest tube for Intraoperative PTX Severe protein calorie nutrition Likely related to recent surgery and infection DVT: SCDs for now Code Status: Full Code Disposition: Patient denies rehab/SNF placement and prefers instead Plan to discharge home with Home Health tomorrow if stable group social worker consulted Vital Signs: Date Time Temp Pulse Resp B/P (MAP) Pulse Ox O2 Delivery O2 Flow Rate FiO2 07/22/17 16:37 Room Air 07/22/17 15:17 36.5 67 18 103/65 (78) 98 07/22/17 12:07 72 90/52 (65) 07/22/17 12:06 67 94/60 (71) 07/22/17 12:05 64 108/69 (82) 07/22/17 10:32 94 Room Air 07/22/17 08:08 36.6 65 18 118/68 (85) 95 Room Air 07/22/17 08:00 Room Air 07/22/17 00:51 36.7 57 20 132/69 (90) 94 Room Air 07/22/17 00:45 Room Air 07/21/17 19:50 64 121/64 (83) Lab Results: Results Past 24 Hours Test 07/22/17 07:26 Range/Units Hemoglobin 8.4 14.0-18.0 g/dL Hematocrit 27.5 42-52 % Sodium Level 141 136-145 mmol/L Potassium Level 3.8 3.5-5.1 mmol/L Chloride Level 106 98-107 mmol/L Carbon Dioxide Level 31 21-32 mmol/L Anion Gap 4.0 3-11 mmol/L Blood Urea Nitrogen 8 7-18 mg/dl Creatinine 0.66 0.60-1.40 mg/dl Est Creatinine Clear Calc Drug Dose 100.7 ml/min Estimated GFR () 113.5 Estimated GFR (Non- 98.0 BUN/Creatinine Ratio 11.9 10-20 Random Glucose 97 70-99 mg/dl Calcium Level 8.2 8.5-10.1 mg/dl
[2017-07-23 00:11] VITALS: BP 154/73; PULSE 70; TEMP 36.8; O2SAT 96
[2017-07-23] MEDS: RASPBERRY SYRUP 5 ML UDP PO SCH ×3 (06:00→17:55)
[2017-07-23] MEDS: VANCOMYCIN HCL 250 MG/5 ML SOLN PO SCH ×3 (06:11→17:55)
[2017-07-23] MEDS: ACETAMINOPHEN 500 MG TAB PO SCH ×3 (06:15→21:46)
[2017-07-23 06:21] LABS: HEMOGLOBIN 8.8 g/dL (14.0-18.0)
[2017-07-23 06:47] LABS: CALCIUM 8.2 mg/dl (8.5-10.1); CREATININE 0.71 mg/dl (0.60-1.40); POTASSIUM 3.8 mmol/L (3.5-5.1)
[2017-07-23] MEDS: CLOBETASOL~ORDER AWAITING ACTION SCH ×2 (07:55→15:59)
[2017-07-23] MEDS: OXYCODONE HCL IR 5 MG TAB (IMMEDIATE RELEASE) PO SCH ×3 (07:55→20:30)
[2017-07-23] MEDS: METOPROLOL TARTRATE 25 MG TAB PO SCH ×2 (07:55→20:29)
[2017-07-23] MEDS: GABAPENTIN 600 MG TAB PO SCH ×3 (07:55→20:29)
[2017-07-23] MEDS: ROSUVASTATIN CALCIUM 20 MG TAB PO SCH (07:55)
[2017-07-23] MEDS: CHECK FENTANYL PATCH PLACEMENT SCH ×2 (07:56→15:59)
[2017-07-23] MEDS: ASPIRIN 81 MG ECTAB PO SCH (07:56)
[2017-07-23] MEDS: MUPIROCIN 2% OINT 22 GM TUBE INTNAS SCH ×2 (07:56→20:00)
[2017-07-23 08:09] VITALS: BP 127/67; PULSE 73; TEMP 37.1; O2SAT 93
[2017-07-23] MEDS: CLOPIDOGREL BISULFATE 75 MG TAB PO SCH (08:45)
[2017-07-23] MEDS: FENTANYL 25 MCG/HR TDSY TD SCH (08:47)
[2017-07-23] MEDS: FENTANYL PATCH REMOVE & WASTE SCH (08:49)
[2017-07-23 15:24] VITALS: BP 107/70; PULSE 75; TEMP 36.5; O2SAT 98
[2017-07-23 16:00] VITALS: O2SAT 98
[2017-07-23 16:46] LABS: INFLUENZA A PCR Neg for Influ A (NEG); INFLUENZA B PCR Neg for Influ B (NEG)
--- NOTE | 2017-07-23 17:29 | Progress Note ---
Internal Med Progress Note Date of Service: Jul 23, 2017. Provider Documentation: SUBJECTIVE: Seen and examined at bedside States having rhinitis, PCR screen was negative Mild abdominal LLQ Diarrhea improving Denies chest pain, SOB, dizziness No other complaints OBJECTIVE: Vital Signs-as noted below Physical Exam: General Appearance:Moderately built and nourished, no apparent distress Head: normocephalic, Atraumatic Eyes: normal inspection, EOMI, PERRL Neck: supple, Trachea midline Respiratory/Chest: Normal breath sounds, CTA Cardiovascular: S1, S2, No murmur Back:Vertical Surgical scar healing Abdomen/GI:Soft, mild LLQ tender, Bowel sounds present Extremities/Musculoskelatal:normal inspection, no edema Neurologic/Psych:grossly no focal neurological deficits Skin: normal color, warm Lab data as noted below. ASSESSMENT & PLAN: Patient is a 71 yr male s/p recent back surgery presents with increased weakness and diarrhea after completing a course of vancomycin for c-diff colitis. Anemia: Likely secondary to blood loss from recent surgery vs chronic disease. No signs of acute bleeding CT abd suggestive of Pancolitis without signs of obstruction or perforation. IV PPI discontinued Continue Abx for c.diff Monitor Hb: Stable Hb:8.8 Recurrent C.diff Colitis: Continue Vancomycin as per ID/GI Appreciate ID and GI Input Continue current treatment to complete the course of Vanco Rhinitis: Influenza PCR: Negative Hypokalemia: Secondary to diarrhea Resolved monitor CAD/PVD S/P stents Continue ASA, statin, Plavix Lopressor dose decreased 2/2 bradycardia Left Ankle pain: Continue gabapentin 600 TID S/P Back surgery S/P Chest tube for Intraoperative PTX Severe protein calorie nutrition Likely related to recent surgery and infection DVT: SCDs for now Code Status: Full Code Disposition: Patient denies rehab/SNF placement and prefers instead Plan to discharge home with Home Health tomorrow if stable social media manager consulted Vital Signs: Date Time Temp Pulse Resp B/P (MAP) Pulse Ox O2 Delivery O2 Flow Rate FiO2 07/23/17 16:00 98 Room Air 07/23/17 15:24 36.5 75 20 107/70 (82) 98 07/23/17 08:09 37.1 73 20 127/67 (87) 93 07/23/17 08:00 Room Air 07/23/17 00:11 36.8 70 20 154/73 (100) 96 Room Air 07/23/17 00:00 Room Air 07/22/17 20:12 68 126/71 (89) Lab Results: Results Past 24 Hours Test 07/23/17 00:00 07/23/17 05:52 Range/Units Influenza Type A (RT-PCR) Neg for Influ A NEG Influenza Type B (RT-PCR) Neg for Influ B NEG Hemoglobin 8.8 14.0-18.0 g/dL Hematocrit 28.0 42-52 % Sodium Level 140 136-145 mmol/L Potassium Level 3.8 3.5-5.1 mmol/L Chloride Level 105 98-107 mmol/L Carbon Dioxide Level 28 21-32 mmol/L Anion Gap 7.0 3-11 mmol/L Blood Urea Nitrogen 7 7-18 mg/dl Creatinine 0.71 0.60-1.40 mg/dl Est Creatinine Clear Calc Drug Dose 93.6 ml/min Estimated GFR () 110.2 Estimated GFR (Non- 95.1 BUN/Creatinine Ratio 10.2 10-20 Random Glucose 103 70-99 mg/dl Calcium Level 8.2 8.5-10.1 mg/dl
[2017-07-24 00:03] VITALS: BP 128/68; PULSE 59; TEMP 36.6; O2SAT 96
[2017-07-24] MEDS: VANCOMYCIN HCL 250 MG/5 ML SOLN PO SCH ×3 (00:07→12:22)
[2017-07-24] MEDS: CHECK FENTANYL PATCH PLACEMENT SCH ×2 (00:09→07:58)
[2017-07-24] MEDS: RASPBERRY SYRUP 5 ML UDP PO SCH ×4 (06:00→12:21)
[2017-07-24] MEDS: ACETAMINOPHEN 500 MG TAB PO SCH ×2 (06:26→13:25)
[2017-07-24 07:47] VITALS: BP 131/69; PULSE 60; TEMP 36.7; O2SAT 95
[2017-07-24] MEDS: MUPIROCIN 2% OINT 22 GM TUBE INTNAS SCH (07:53)
[2017-07-24] MEDS: ROSUVASTATIN CALCIUM 20 MG TAB PO SCH (07:54)
[2017-07-24] MEDS: GABAPENTIN 600 MG TAB PO SCH ×2 (07:54→13:25)
[2017-07-24] MEDS: METOPROLOL TARTRATE 25 MG TAB PO SCH (07:54)
[2017-07-24] MEDS: OXYCODONE HCL IR 5 MG TAB (IMMEDIATE RELEASE) PO SCH ×2 (07:55→13:26)
[2017-07-24] MEDS: CLOPIDOGREL BISULFATE 75 MG TAB PO SCH (07:55)
[2017-07-24] MEDS: CLOBETASOL~ORDER AWAITING ACTION SCH ×2 (07:55)
--- NOTE | 2017-07-24 12:01 | Progress Note ---
Internal Med Progress Note Date of Service: Jul 24, 2017. Provider Documentation: SUBJECTIVE: Seen and examined at bedside Doing well today Rhinitis improving Abdominal pain resolved Diarrhea improved Denies chest pain, SOB, dizziness No other complaints OBJECTIVE: Vital Signs-as noted below Physical Exam: General Appearance:Moderately built and nourished, no apparent distress Head: normocephalic, Atraumatic Eyes: normal inspection, EOMI, PERRL Neck: supple, Trachea midline Respiratory/Chest: Normal breath sounds, CTA Cardiovascular: S1, S2, No murmur Back:Vertical Surgical scar healing Abdomen/GI:Soft, mild LLQ tender, Bowel sounds present Extremities/Musculoskelatal:normal inspection, no edema Neurologic/Psych:grossly no focal neurological deficits Skin: normal color, warm Lab data as noted below. ASSESSMENT & PLAN: Patient is a 71 yr male s/p recent back surgery presents with increased weakness and diarrhea after completing a course of vancomycin for c-diff colitis. Anemia: Likely secondary to blood loss from recent surgery vs chronic disease. No signs of acute bleeding CT abd suggestive of Pancolitis without signs of obstruction or perforation. IV PPI discontinued Continue Abx for c.diff Monitor Hb: Stable Hb:8.8 Recurrent C.diff Colitis: Continue Vancomycin as per ID/GI Appreciate ID and GI Input Continue current treatment to complete the course of Vanco Rhinitis: Influenza PCR: Negative Hypokalemia: Secondary to diarrhea Resolved monitor CAD/PVD S/P stents Continue ASA, statin, Plavix Lopressor dose decreased 2/2 bradycardia Left Ankle pain: Continue gabapentin 600 TID S/P Back surgery S/P Chest tube for Intraoperative PTX Severe protein calorie nutrition Likely related to recent surgery and infection DVT: SCDs for now Code Status: Full Code Disposition: Plan to discharge home with Home Health today Follow up with your PCP in 1 week as a scheduled (Office will call you with appointment) Follow up with your Neuro Surgeon Dr. Multani as scheduled Complete the antibiotic course as prescribed Seek immediate medical attention if your symptoms reoccur or worsen Vancomycin Course: Continue PO vancomycin QID (Four times a day) for 6 days then taper to Vanco 125 BID (Twice A day) x 7 days Vanco 125 daily x 7 days Vanco 125 every other day x 7 days Vanco 125 every third day x 14 days and STOP Vital Signs: Date Time Temp Pulse Resp B/P (MAP) Pulse Ox O2 Delivery O2 Flow Rate FiO2 07/24/17 08:12 Room Air 07/24/17 07:47 36.7 60 20 131/69 (89) 95 Room Air 07/24/17 00:10 Room Air 07/24/17 00:03 36.6 59 18 128/68 (88) 96 Room Air 07/23/17 16:00 98 Room Air 07/23/17 15:24 36.5 75 20 107/70 (82) 98
[2017-07-24] MEDS ORDERED: VANC5CAP PO (12:14)
--- NOTE | 2017-07-24 12:16 | Discharge Summary ---
Discharge Summary Date of Service Jul 24, 2017. Discharge Summary Admission Date: Jul 16, 2017 at 18:46 Discharge Date: Jul 24, 2017 Discharge Disposition: Home with services Principal Diagnosis: Recurrent C.diff colitis Procedures: CT ABD: 1. Diffuse colonic wall thickening consistent with a pancolitis 2. No evidence of bowel obstruction. No evidence of free air 3. Normal appendix 5. Cholelithiasis 6. Mild splenomegaly 7. Small left pleural effusion CTA: 1. No evidence of acute pulmonary embolism 2. Small left pleural effusion 3. Mild basilar atelectatic changes 4. Tree-in-bud opacities within the right upper lobe likely inflammatory/postinflammatory Consultations: Abraham/Lobo BEAULIEU-Sharri Pending Studies/Follow-Up: Follow up with your PCP in 1 week as a scheduled (Office will call you with appointment) Follow up with your Neuro Surgeon Dr. Multani as scheduled Complete the antibiotic course as prescribed Seek immediate medical attention if your symptoms reoccur or worsen Vancomycin Course: Continue PO vancomycin QID (Four times a day) for 6 days then taper to Vanco 125 BID (Twice A day) x 7 days Vanco 125 daily x 7 days Vanco 125 every other day x 7 days Vanco 125 every third day x 14 days and STOP Medication Reconciliation New Medications: Vancomycin Hcl (Vancomycin) 125 Mg Cap 125 MG PO UD for 34 Days, #54 CAP Take QID X 6 days, then BID x 7 days, then daily x 7 days, every other day x 7 days then every third day x 14 days and STOP Continued Medications: Acetaminophen (Tylenol) 500 Mg Tab 1000 MG PO DAILY PRN for PRN, TAB Aspirin (Aspir-81) 81 Mg Tab 81 MG PO Q2D Clobetasol Propionate (Clobetasol Propionate) 100 Appln/50 Ml Soln 1 APPL TOP DAILY PRN for scalp irritation Clopidogrel Bisulfate (Plavix) 75 Mg Tab 75 MG PO QAM, TAB Diazepam (Valium) 5 Mg Tab 5 MG PO Q8 PRN for muscle spasms, TAB Fentanyl (Fentanyl) 25 Mcg Tdsy 25 MCG TD Q3D Gabapentin (Neurontin) 300 Mg Cap 600 MG PO TID, CAP Metoprolol Tartrate (Lopressor) 50 Mg Tab 50 MG PO BID, TAB Mupirocin Calcium (Bactroban Nasal) 2 % Oin 1 GM PANKAJ BID for 5 Days, #10 GM Nitroglycerin (Nitrostat) 0.4 Mg Sub 0.4 MG UT PRN, BTL Oxycodone Hcl (Oxycodone Hcl) 20 Mg Tab 20 MG PO Q6 PRN for Pain Rosuvastatin Calcium (Crestor) 20 Mg Tab 20 MG PO DAILY, TAB Sildenafil Citrate (Viagra) 100 Mg Tab 50 MG PO DAILY PRN for erectile dysfunction, #10 TAB 11 Refills Admission Information HPI (per Admitting provider): This is 71 yo M with complicated medial hx of Extensive back surgery , prior hx of C diff, polyneuropathy peripheral artery disease , CAD pt was admitted to [facility] from 06/13/17-06/22/17 for extensive back surgery by Dr Orlando and Dr Carcamo , pt developed C diff post op , completed oral vancomycin course was at ,[facility] 06/22/17-07/07/17 after being discharged form rehab , pt reports poor appetite , generalized weakness , fatigue for the past 2-3 days had dark loose watery stool 5-6 times a day , associated with abdominal cramps today pt sustained a fall while trying to get out of bed , felt that he does not have any strength , did not sustain and injury in the ER pt Continues to have liquid black stool complains of diffuse abdominal pain CT abdomen /pelvis shows -pancolitis Physical Exam (per Admitting): General Appearance: + pertinent finding (very cachectic /chronically ill appearing ) Head: normocephalic, atraumatic Eyes: sclerae normal ENT: + pertinent finding (very dry oral mucosa ) Neck: no carotid bruits Respiratory/Chest: lungs clear, normal breath sounds Cardiovascular: regular rate, rhythm, no edema Abdomen/GI: + pertinent finding (scaphoid, diffuse tenderness on palpation , hyperactive bowel sound ) Neurologic/Psych: no motor/sensory deficits, alert Skin: + pallor Hospital Course Patient is a 71 yr male s/p recent back surgery presents with increased weakness and diarrhea after completing a course of vancomycin for c-diff colitis. Anemia: Likely secondary to blood loss from recent surgery vs chronic disease. No signs of acute bleeding CT abd suggestive of Pancolitis without signs of obstruction or perforation. IV PPI discontinued Continue Abx for c.diff Monitor Hb: Stable Hb:8.8 Recurrent C.diff Colitis: Continue Vancomycin as per ID/GI Appreciate ID and GI Input Continue current treatment to complete the course of Vanco Rhinitis: Influenza PCR: Negative Hypokalemia: Secondary to diarrhea Resolved monitor CAD/PVD S/P stents Continue ASA, statin, Plavix Lopressor dose decreased 2/2 bradycardia Left Ankle pain: Continue gabapentin 600 TID S/P Back surgery S/P Chest tube for Intraoperative PTX Severe protein calorie nutrition Likely related to recent surgery and infection DVT: SCDs for now Code Status: Full Code Disposition: Plan to discharge home with Home Health today Follow up with your PCP in 1 week as a scheduled (Office will call you with appointment) Follow up with your Neuro Surgeon Dr. Multani as scheduled Complete the antibiotic course as prescribed Seek immediate medical attention if your symptoms reoccur or worsen Vancomycin Course: Continue PO vancomycin QID (Four times a day) for 6 days then taper to Vanco 125 BID (Twice A day) x 7 days Vanco 125 daily x 7 days Vanco 125 every other day x 7 days Vanco 125 every third day x 14 days and STOP Total time spent on discharge = 35 minutes This includes examination of the patient, discharge planning, medication reconciliation, and communication with other providers. Discharge Instructions Discharge Instructions Date of Service Jul 24, 2017. Admission Reason for Admission: C. Difficile Colitis, Colitis Discharge Discharge Diagnosis / Problem: Recurrent C.diff colitis Discharge Goals Goal(s): Decrease discomfort, Improve function Activity Recommendations Activity Limitations: resume your previous activity Exercise/Sports Limitations: as tolerated . Instructions / Follow-Up Instructions / Follow-Up Follow up with your PCP in 1 week as a scheduled (Office will call you with appointment) Follow up with your Neuro Surgeon Dr. Multani as scheduled Complete the antibiotic course as prescribed Seek immediate medical attention if your symptoms reoccur or worsen Vancomycin Course: Continue PO vancomycin QID (Four times a day) for 6 days then taper to Vanco 125 BID (Twice A day) x 7 days Vanco 125 daily x 7 days Vanco 125 every other day x 7 days Vanco 125 every third day x 14 days and STOP Current Hospital Diet Patient's current hospital diet: AHA Diet (Heart Healthy), Low Fiber Diet Discharge Diet Recommended Diet: AHA Diet (Heart Healthy), Low Fiber Diet Pending Studies Studies pending at discharge: no Medical Emergencies . Who to Call and When: Medical Emergencies: If at any time you feel your situation is an emergency, please call 911 immediately. . Non-Emergent Contact Non-Emergency issues call your: Primary Care Provider, Surgeon Call Non-Emergent contact if: you have a fever, your pain is not controlled, your pain is worsening, your pain is unusual for you, your pain is concerning you, you have any medication questions Seek immediate medical attention if your symptoms reoccur or worsen . . "Provider Documentation" section prepared by Bridger Nash. . <Electronically signed by Bridger Nash MD> Signed: 07/24/17 1215 Signed: The status of this report is Signed * If report status is Draft, the document has not been finalized by the responsible provider.
[2017-07-24 13:12] VITALS: BP 131/69; PULSE 60; TEMP 36.7; O2SAT 95
== END 2017-07-24 13:42 | disposition home health service (06) | DRG 371 ==
LOC: C.EDB 14:05 → C.2E 18:46 → ENRESERV 19:14 → C.4E 07-21 13:58
PROVIDERS: ADMIT Hospitalist; ATTEND Internal Medicine
DX: A04.71 Enterocolitis due to Clostridium difficile, recurrent (principal); E43 Unspecified severe protein-calorie malnutrition; D62 Acute posthemorrhagic anemia; E87.6 Hypokalemia; M25.572 Pain in left ankle and joints of left foot; D63.8 Anemia in other chronic diseases classified elsewhere; I11.9 Hypertensive heart disease without heart failure; I25.10 Atherosclerotic heart disease of native coronary artery without angina pectoris; E78.5 Hyperlipidemia, unspecified; I73.9 Peripheral vascular disease, unspecified; G62.9 Polyneuropathy, unspecified; Z79.899 Other long term (current) drug therapy; Z79.82 Long term (current) use of aspirin; Z79.02 Long term (current) use of antithrombotics/antiplatelets; Z91.81 History of falling; Z98.890 Other specified postprocedural states; Z95.5 Presence of coronary angioplasty implant and graft; Z87.891 Personal history of nicotine dependence; Z82.49 Family history of ischemic heart disease and other diseases of the circulatory system

== ENCOUNTER 2023-01-13 05:13 | Inpatient (IN) ==
--- NOTE | 2022-12-21 15:01 | PAT Medication Instructions ---
Medication Instructions Date of Service December 21, 2022 Home Medications aspirin 81 mg chewable tablet 81 mg PO QAM baclofen 10 mg tablet 10 mg PO TID PRN clobetasol 0.05 % topical cream 1 appln topical DAILY PRN gabapentin 600 mg tablet 600 mg PO QID metoprolol tartrate 50 mg tablet 50 mg PO BID nitroglycerin 0.4 mg sublingual tablet 0.4 mg sublingual Q5M PRN rosuvastatin 20 mg tablet (Crestor) 20 mg PO QAM sildenafil 100 mg tablet 100 mg PO DAILY PRN amlodipine 5 mg tablet 5 mg PO QAM cyanocobalamin (vitamin B-12) 1,000 mcg tablet 1,000 mcg PO QAM duloxetine 30 mg capsule,delayed release 30 mg PO QAM famotidine 20 mg tablet 20 mg PO QPM hydrochlorothiazide 25 mg tablet 25 mg PO 6XWK hydrochlorothiazide 50 mg tablet 50 mg PO WK losartan 100 mg tablet 100 mg PO QAM metformin 500 mg tablet 500 mg PO BID Continue as directed nitroglycerin 0.4 mg sublingual tablet 0.4 mg sublingual Q5M PRN(if needed) STOP taking 24 hours before surgery clobetasol 0.05 % topical cream 1 appln topical DAILY PRN DO NOT take the morning of surgery baclofen 10 mg tablet 10 mg PO TID PRN sildenafil 100 mg tablet 100 mg PO DAILY PRN cyanocobalamin (vitamin B-12) 1,000 mcg tablet 1,000 mcg PO QAM hydrochlorothiazide 25 mg tablet 25 mg PO 6XWK hydrochlorothiazide 50 mg tablet 50 mg PO WK losartan 100 mg tablet 100 mg PO QAM metformin 500 mg tablet 500 mg PO BID Take morning of surgery With a small sip of water, OTHERWISE NOTHING TO EAT OR DRINK AFTER MIDNIGHT: aspirin 81 mg chewable tablet 81 mg PO QAM (unless directed otherwise by surgeon) gabapentin 600 mg tablet 600 mg PO QID metoprolol tartrate 50 mg tablet 50 mg PO BID rosuvastatin 20 mg tablet (Crestor) 20 mg PO QAM amlodipine 5 mg tablet 5 mg PO QAM duloxetine 30 mg capsule,delayed release 30 mg PO QAM Take evening before surgery baclofen 10 mg tablet 10 mg PO TID PRN(if needed) gabapentin 600 mg tablet 600 mg PO QID metoprolol tartrate 50 mg tablet 50 mg PO BID famotidine 20 mg tablet 20 mg PO QPM metformin 500 mg tablet 500 mg PO BID Other Notes If you have any questions please call us at [phone] or [phone] or [phone] or [phone]
--- NOTE | 2022-12-28 14:45 | Anesthesiology Consultation ---
Date of Service December 28, 2022 Assessment & Plan (1) Encounter for pre-operative examination: - check BSG am DOS. - cardiology 09/14/22 [facility]: "...preoperative cardiology consultation...recommend referral for resting echocardiography and Lexiscan nuclear stress testing..." Subsequent clearance 10/11/22: "...Acceptable risk from a cardiac standpoint for elective left total knee replacement..." - Outpatient joint assessment: Patient is currently scheduled for inpatient pathway. If re-evaluated and patient/surgeon requests outpatient pathway, patient is not acceptable candidate for outpatient joint program from anesthesia standpoint. Chart Review Chart Review: Patient seen in Pre Admission Testing Teaching & Discussion Pre-Anesthesia Teaching/Discussion Notes: Instructed NPO after midnight before surgery, except medications with 15 cc of water. Medication instructions provided according to the PAT guidelines. History Surgery Operation Date: 01/13/23 07:00 Proposed Procedures p Left Total Knee Arthroplasty - Demarcus Worthy MD Height/Weight Height: 5 ft 8 in Weight: 83.9 kg Allergies Allergy/AdvReac Type Severity Reaction Status Date / Time lisinopril AdvReac Mild Cough Verified 12/21/22 12:33 Medications Home Medications Medication Instructions Recorded Confirmed Last Taken aspirin 81 mg chewable tablet 81 mg PO QAM 01/12/19 12/21/22 Unknown baclofen 10 mg tablet 10 mg PO TID PRN Muscle Spasm 01/12/19 12/21/22 Unknown clobetasol 0.05 % topical cream 1 appln topical DAILY PRN Skin 01/12/19 12/21/22 Unknown Irritation gabapentin 600 mg tablet 600 mg PO QID 01/12/19 12/21/22 Unknown metoprolol tartrate 50 mg tablet 50 mg PO BID 01/12/19 12/21/22 Unknown nitroglycerin 0.4 mg sublingual 0.4 mg sublingual Q5M PRN Chest 01/12/19 12/21/22 Unknown tablet Pain rosuvastatin 20 mg tablet (Crestor) 20 mg PO QAM 01/12/19 12/21/22 Unknown sildenafil 100 mg tablet 100 mg PO DAILY PRN Sexual Activity 02/01/19 12/21/22 Unknown amlodipine 5 mg tablet 5 mg PO QAM 12/21/22 12/21/22 Unknown cyanocobalamin (vitamin B-12) 1,000 mcg PO QAM 12/21/22 12/21/22 Unknown 1,000 mcg tablet duloxetine 30 mg capsule,delayed 30 mg PO QAM 12/21/22 12/21/22 Unknown release famotidine 20 mg tablet 20 mg PO QPM 12/21/22 12/21/22 Unknown hydrochlorothiazide 25 mg tablet 25 mg PO 6XWK 12/21/22 12/21/22 Unknown hydrochlorothiazide 50 mg tablet 50 mg PO WK 12/21/22 12/21/22 Unknown losartan 100 mg tablet 100 mg PO QAM 12/21/22 12/21/22 Unknown metformin 500 mg tablet 500 mg PO BID 12/21/22 12/21/22 Unknown Past Medical History Medical History (Updated 12/28/22 @ 15:01 by Dorene Rogers PA-C) Coronary artery disease s/p 3 CONNOR 2010 Diabetes mellitus, type 2 NIDDM Gout HTN (hypertension) controlled, stable per pt Hyperlipidemia Medical marijuana use Neuropathy of both feet Patient denies h/o stroke, seizures, blood clots or blood transfusions. Exercise / Class Metabolic Activity II 4-5 Yardwork/Stairs/Walk up hill (denies chest discomfort or shortness of breath with 1 FOS) Past Family History Family History Other No family history of adverse response to anesthesia Past Surgical History Surgical History History of cardiac cath 03/20/11 @ [facility] with 3 CONNOR placed (pt states was on plavix taken off roughly 6 months ago)--follows with Emerson Hampton PA-C @ [place] History of carpal tunnel release of both wrists History of colonoscopy History of decompression of ulnar nerve right History of heart artery stent 3 CONNOR placed 03/20/11 @ [facility] History of hernia surgery History of repair of right rotator cuff History of spinal fusion x3--per pt from cervical to lumbar region, normal ROM History of tooth extraction Status post trigger finger release Past Anesthesia History No Hx of Anesthesia Complications and No Family Hx of Anesthesia Complications History of PONV No Hx of PONV and No Hx of Motion Sickness Social History Smoking Status: Former smoker Smoking End Date: 1984 Hx Alcohol Use: Yes Alcohol type: beer alcohol intake frequency: a few times a month Hx Substance Use: Yes (medical marijuana (advised on policy)) substance use type: marijuana Last Used Substance: Unknown Review of Systems Patient denies chest pain, shortness of breath, dyspnea on exertion, snoring, witnessed apneas, reflux, fever, chills, cough, wheezing, or palpitations. Physical Exam Vital Signs Vitals BP 150/78 P 66 TEMP 98 SP02 98% on RA RESP 18 Physical Patient resting comfortably in chair in NAD, alert and oriented, responding appropriately throughout visit Full cervical extension range of motion without pain TMD 3.5 finger breadths Mallampati Score 2 Dentition: partial dentures; denies chipped or loose teeth Lungs: normal respiratory effort. Good air movement, clear throughout to auscultation, no adventitious breath sounds Cardiac: regular rate and rhythm, no murmurs noted Carotid arteries: negative bruit bilat Lab Results Anesthesia Preop Results Results Anesthesia Widget: WBC 7.61 K/ul (4.8-10.8) 12/28/22 Hgb 14.4 g/dl (14.0-18.0) 12/28/22 Hct 41.7 % (42.0-52.0) L 12/28/22 Plt 249 K/uL (130-400) 12/28/22 Na 138 mmol/L (136-145) 12/28/22 K 3.4 mmol/L (3.5-5.1) L 12/28/22 Cl 100 mmol/L (98-107) 12/28/22 CO2 30 mmol/L (21-32) 12/28/22 BUN 15 mg/dl (6-23) 12/28/22 Creat 0.82 mg/dl (0.6-1.4) 12/28/22 Glucose Level 107 mg/dl (70-99(Fasting)) H 12/28/22 PT 10.9 Seconds (9.0-12.0) 12/28/22 PTT 25.2 Seconds (21.0-31.0) 12/28/22 INR 1.0 (0.9-1.1) 12/28/22 Urine Color Yellow 12/28/22 Urine Appearance Clear (Clear) 12/28/22 Urine pH 6.0 (4.5-7.5) 12/28/22 Urine Specific Krypton 1.022 (1.000-1.030) 12/28/22 Urine Protein Negative (Negative) 12/28/22 Urine Glucose (UA) Negative (Negative) 12/28/22 Urine Ketones Negative (Negative) 12/28/22 Urine Blood Negative (Negative) 12/28/22 Urine Nitrite Negative (Negative) 12/28/22 Urine Bilirubin Negative (Negative) 12/28/22 Urine Urobilinogen Negative (Negative) 12/28/22 Urine Leukocyte Esterase Negative (Negative) 12/28/22 Blood Type B Positive 12/28/22 Antibody Screen NEGATIVE 12/28/22 Testing Laboratory Results 11/17/22 A1c: 6% Electrocardiogram Date: 09/14/22 Sinus bradycardia with 1st degree AV block, rate 54 bpm Echocardiogram Date: 10/11/22 EF 60-64% Mild cLVH Normal LV wall motion Grade I diastolic dysfunction Mild mitral regurgitation Mild tricuspid regurgitation No evidence of pulmonary hypertension Stress Test Date: 10/11/22 Pharmacologic MPHR 70% Negative for ischemia or scar Normal myocardial thickening and wall motion EF 67% Other Testing Carotid doppler 07/12/18 Right carotid artery duplex examination indicates evidence of less than 50% stenosis of the internal carotid artery. Left carotid artery duplex examination indicates evidence of less than 50% stenosis of the internal carotid artery.
--- NOTE | 2022-12-30 15:35 | History & Physical Report ---
Date of Service December 30, 2022 Assessment & Plan (1) Osteoarthritis of left knee: Plan: PRE-OP Diagnosis: Left knee osteoarthritis Planned Procedure: Left total knee arthroplasty Plan: Patient is scheduled to undergo this procedure at the [facility] with Dr. Worthy on January 13, 2023. Risks and complications of the procedure such as: Infection, bleeding, pain, scarring, nerve blood vessel damage, weakness, wound problems, stiffness, incomplete relief of symptoms, hardware failure, hardware loosening, wear, fracture, tendon or ligament injury, blood clots, embolism, cardiac, stroke and were explained to the patient at his visit today and informed consent for the procedure was obtained. Patient also understands risks of proceeding with surgical intervention during the COVID-19 pandemic. Currently he is asymptomatic and states that he has not been in contact with anyone positive for the virus recently. We have obtained preoperative medical clearance from the patient's primary care provider Dr. Lopez and his senior electronics technician Emerson Hampton PA-C. Patient is scheduled to meet with anesthesia at the hospital later today. While there he will obtain a CBC with differential, complete metabolic panel, PT/INR, blood type and screen, urinalysis, urine culture and sensitivity, and a nasal culture for MRSA. His hemoglobin A1c and EKG are both up-to-date. During today's visit we reviewed the total knee packet. I provided the patient with paperwork to obtain obtaining a handicap placard for his vehicle. I provided him with information about lectures offered by [facility] in regards to joint replacement surgery. I provided him with an order to obtain a walker. I recommended that he purchase a shower chair and raised toilet seat. We discussed discharge planning from the hospital. Patient states he will most likely do in-home physical therapy for the first 2 weeks before transitioning to outpatient physical therapy. I advised the patient that he will be provided with a prescription for narcotic pain medication for postoperative pain control. We will have him on aspirin twice daily for the first 30 days postoperatively for blood clot prevention. Patient verbalized understanding of all information provided during today's visit. He thanks for the care that he received. If he has questions or concerns prior to his surgery, he will contact clinic. Patient be scheduled for 2-week postoperative follow-up visit with myself on January 26 at 11:15 AM. This chart was completed utilizing [employer] voice recognition software. Grammatical errors, random word insertions, pronoun errors, and in complete sentences are an occasional consequence of the system. Any questions or concerns about the content, text, or information contained within the body of this dictation should be addressed directly to the physician for clarification. History of Present Illness Chief Complaint: Chief Complaint: Left knee pain Primary Care Provider: Chandrika Lind MD History of Present Illness (including history relevant to procedure): This 77-year-old male presents the clinic today for his preoperative history and physical. Patient complains of significant left-sided knee pain that has been ongoing for the past year and a half. He has failed conservative management with the use of nonsteroidal agents along with multiple corticosteroid injections. States he attempted physical therapy which made it worse. Patient was just recently cleared by his senior electronics technician and his primary care provider to proceed with surgical intervention. He has undergone a cardiac stress test which was unremarkable. He has slowed his hemoglobin A1c to 5.6. He states his senior electronics technician recently discontinued his Plavix and only has him on aspirin for blood thinning agent. Patient is very anxious to proceed with surgical intervention for his left knee osteoarthritis. Review Of Systems: A 12 point review of systems is formed and is unremarkable except for those things stated in the HPI and past medical history. Past Medical History: Problems: Aortoiliac occlusive disease Lumbar spinal stenosis Dyslipidemia HTN (hypertension) H/O right coronary artery stent placement History of PTCA CAD (coronary artery disease) History of myocardial infarction Diabetes Procedure History Procedure Procedure Date Comments PTCA - Percutaneous transluminal coronary angioplasty x3 stents RCA Back surgery Allergies and Sensitivities: lisinopril(Cough) Current Home Meds: (Last Updated 12/28 13:35) aspirin (aspirin 81 mg oral delayed release tablet) 81 mg PO Daily baclofen (baclofen 10 mg oral tablet) 10 mg PO tid clobetasol topical (clobetasol 0.05% topical cream) 1 appl topical Daily clopidogrel (clopidogrel 75 mg oral tablet) 75 mg PO Daily gabapentin (gabapentin 600 mg oral tablet) 600 mg PO qid hydroCHLOROthiazide metoprolol (metoprolol tartrate 50 mg oral tablet) 50 mg PO bid nitroglycerin (nitroglycerin 0.4 mg sublingual tablet) 0.4 mg SL q5min PRN: as needed for chest pain rosuvastatin (rosuvastatin 20 mg oral tablet) 20 mg PO qhs sildenafil (sildenafil 100 mg oral tablet) 100 mg PO Daily PRN: as needed for erectile dysfunction Allergies Allergy/AdvReac Type Severity Reaction Status Date / Time lisinopril AdvReac Mild Cough Verified 12/21/22 12:33 Home Medications Medication Instructions Recorded Confirmed Type aspirin 81 mg chewable tablet 81 mg PO QAM 01/12/19 12/21/22 History baclofen 10 mg tablet 10 mg PO TID PRN Muscle Spasm 01/12/19 12/21/22 History clobetasol 0.05 % topical cream 1 appln topical DAILY PRN Skin 01/12/19 12/21/22 History Irritation gabapentin 600 mg tablet 600 mg PO QID 01/12/19 12/21/22 History metoprolol tartrate 50 mg tablet 50 mg PO BID 01/12/19 12/21/22 History nitroglycerin 0.4 mg sublingual 0.4 mg sublingual Q5M PRN Chest 01/12/19 12/21/22 History tablet Pain rosuvastatin 20 mg tablet (Crestor) 20 mg PO QAM 01/12/19 12/21/22 History sildenafil 100 mg tablet 100 mg PO DAILY PRN Sexual Activity 02/01/19 12/21/22 History amlodipine 5 mg tablet 5 mg PO QAM 12/21/22 12/21/22 History cyanocobalamin (vitamin B-12) 1,000 mcg PO QAM 12/21/22 12/21/22 History 1,000 mcg tablet duloxetine 30 mg capsule,delayed 30 mg PO QAM 12/21/22 12/21/22 History release famotidine 20 mg tablet 20 mg PO QPM 12/21/22 12/21/22 History hydrochlorothiazide 25 mg tablet 25 mg PO 6XWK 12/21/22 12/21/22 History hydrochlorothiazide 50 mg tablet 50 mg PO WK 12/21/22 12/21/22 History losartan 100 mg tablet 100 mg PO QAM 12/21/22 12/21/22 History metformin 500 mg tablet 500 mg PO BID 12/21/22 12/21/22 History Past Med/Surg History Medical History Coronary artery disease s/p 3 CONNOR 2010 Diabetes mellitus, type 2 NIDDM Gout HTN (hypertension) controlled, stable per pt Hyperlipidemia Medical marijuana use Neuropathy of both feet Surgical History History of cardiac cath 03/20/11 @ [facility] with 3 CONNOR placed (pt states was on plavix taken off roughly 6 months ago)--follows with Emerson Hampton PA-C @ [place] History of carpal tunnel release of both wrists History of colonoscopy History of decompression of ulnar nerve right History of heart artery stent 3 CONNOR placed 03/20/11 @ [facility] History of hernia surgery History of repair of right rotator cuff History of spinal fusion x3--per pt from cervical to lumbar region, normal ROM History of tooth extraction Status post trigger finger release Family History Other No family history of adverse response to anesthesia Social History Smoking Status: Former smoker Second Hand Exposure: No; Hx Alcohol Use: Yes Alcohol type: beer Hx Substance Use: Yes (medical marijuana (advised on policy)) Last Used Substance: Unknown Preferred Language: Hong Konger Communication Ability: Effective Email Marketing Processor Required: No Beliefs That Will Affect Care: Zoroastrianism Zoroastrianism Beliefs: Restorationism Current Living Situation: Alone Feels Safe at Home: Yes Assistive Devices: Contacts, Glasses and Walker Review of Systems All systems reviewed & are unremarkable except as noted in Subjective Physical Exam Physical Exam: Physical Exam: (relevant to the procedure, including heart and lung evaluation) General: Alert and oriented x 3 with proper grooming and hygiene Eyes: Pupils are equal reactive to light with accommodation. Extraocular movements are intact Throat: Posterior oropharynx clear with absence of edema, erythema or exudate. Patient has dentures Cardiac: Regular rate and rhythm with no murmurs or gallops appreciated Lungs: Clear to auscultation throughout with no wheezing, rales or rhonchi Abdomen: Obese, nondistended, nontender with NABS Extremities: _ Neuro: Cranial nerves II through XII are intact no motor or sensory deficit Skin: Normal in appearance with no open skin areas or discharge Results & Data Diagnostic Findings Studies (relevant to the procedure): X-Rays from May 2022 where he was noted to have almost [id number] arthritis in the medial compartment of the left knee.
[2023-01-13] MEDS ORDERED: TRANEXAMIC ACID 1,000 MG **IV Intra-op IV SCH (06:00)
[2023-01-13] MEDS ORDERED: Scopolamine 1 MG TDSY TD SCH (06:00)
[2023-01-13] MEDS ORDERED: TRANEXAMIC ACID 1,000 MG **IV Pre-op IV SCH (06:00)
[2023-01-13] MEDS ORDERED: ROPIVACAINE 0.5% HCL/PF 150 MG, BUPIVACAINE 0.75% MPF 20 ML, EPINEPHrine 0.15 MG, Ketor... INFIL SCH (06:00)
[2023-01-13] MEDS ORDERED: LR 60ML/HR IV SCH (06:00)
[2023-01-13] MEDS ORDERED: LR 500ML BOLUS, THEN 15ML/HR IV SCH (06:00)
[2023-01-13] MEDS ORDERED: traMADol HCL 50 MG TABLET PO SCH (06:00)
[2023-01-13] MEDS ORDERED: ACETAMINOPHEN 500 MG TAB PO SCH (06:00)
[2023-01-13] MEDS ORDERED: CeleBREX 200 MG CAP PO SCH (06:00)
[2023-01-13] MEDS ORDERED: FAMOTIDINE 20 MG TAB PO SCH (06:00)
[2023-01-13] MEDS ORDERED: ceFAZolin 2000MG 2,000 MG/15 ML SYR IV SCH (06:00)
[2023-01-13] MEDS ORDERED: fentaNYL citrate PF 100 MCG/2 ML VIAL ONE (06:19)
[2023-01-13] MEDS ORDERED: MIDAZOLAM HCL 1 MG/ML 2ML VIAL ONE (06:19)
[2023-01-13] MEDS ORDERED: PROPOFOL IV EMULSION 10 MG/ML 20 ML VIAL IV ONE (06:22)
[2023-01-13] MEDS ORDERED: LIDOCAINE 2% 2 ML VIAL/AMP(20MG/ML) INFIL ONE (06:22)
[2023-01-13] MEDS ORDERED: ONDANSETRON INJ 2 MG/ML 2 ML VIAL ONE (06:22)
[2023-01-13] MEDS ORDERED: ROPIVACAINE 0.5% 5 MG/ML 30 ML VIAL ONE (06:23)
[2023-01-13] MEDS ORDERED: BUPIVACAINE 0.5 % 5 MG/1 ML PF 10ML VIAL ONE (06:23)
[2023-01-13] MEDS ORDERED: ORTHO JOINT ANESTHETIC ONE (06:38)
[2023-01-13] MEDS ORDERED: ePHEDrine sulfate 50 MG/ML AMP IV PRN (06:38)
[2023-01-13] MEDS ORDERED: ONDANSETRON INJ 2 MG/ML 2 ML VIAL IV PRN ×2 (06:38→08:53)
[2023-01-13] MEDS ORDERED: fentaNYL citrate PF 100 MCG/2 ML VIAL IV PRN (06:38)
[2023-01-13] MEDS ORDERED: ATROPINE SULFATE 0.1 MG/ML 10ML SYR IV PRN (06:38)
--- NOTE | 2023-01-13 06:44 | History & Physical Bridge Note ---
Date of Service January 13, 2023 History & Physical Bridge Note I have examined the patient, reviewed the History & Physical and in the interval since the performance of the History & Physical I have noted the following changes of clinical significance: no changes noted
[2023-01-13] MEDS ORDERED: ePHEDrine sulfate 50 MG/ML AMP ONE (07:31)
--- NOTE | 2023-01-13 08:48 | Operative Report ---
Post Operative Report Pre & Post Diagnosis Operation Date: 01/13/23 07:00 Pre-Op Diagnosis: Left Knee Osteoarthritis Post-Op Diagnosis: Left Knee Osteoarthritis I identified the patient and participated in the time-out.: Yes Procedure Operation Date: 01/13/23 07:00 Actual Procedures p Left Total Knee Arthroplasty(Left) - Demarcus Worthy MD Surgeon Demarcus Worthy MD Rewards Consultant THOR Null PA-C. No resident or fellow was available to assist. Estimated Blood Loss 100 Findings Consistent with Post-Op Diagnosis Fluids 1 L normal saline Specimens left knee bone and soft tissue contents Anesthesia Type Spinal MAC Complications none Disposition Disposition: Recovery Room Indications 77-year-old male, of the [employer], has had left knee pain and arthritis refractory to conservative management. X-rays demonstrate joint space narrowing, osteophyte formation, and subchondral sclerosis. I had a long discussion with him about the risks and benefits of surgery, alternatives to surgery, and expected outcomes. After reviewing all these he elected to proceed with surgery. All questions were answered. Informed consent was signed. Description of Procedure Patient was identified in the preoperative holding area where the surgical site, left knee, was marked. Spinal anesthetic was placed by anesthesia. Patient was brought back to the operating room, placed on the operating room table, and IV sedation was administered. A bump was placed underneath the ipsilateral hip. All bony prominences were padded. Perioperative antibiotics and tranexamic acid were administered. Exam under anesthesia was performed. This demonstrated neutral mechanical alignment. He had range of motion from approximately 6 degrees to 100 anddegrees to 110 degrees. Stable to varus and valgus at 30 degrees. The surgical site was prepped and draped in the normal sterile fashion. Prior to incision a multidisciplinary timeout was called. All in the room were in agreement. We began by exsanguinating the limb with an Esmarch bandage. Tourniquet was inflated to 250 mmHg. A 14 cm long incision was made over the anterior aspect of the knee. I dissected through the subcutaneous tissues to the level of the fascia. Full-thickness flaps were raised above the fascia. A median parapatellar arthrotomy was made. Half the fat pad was excised. A medial release was performed with Bovie electrocautery on the proximal tibia. Synovitis in the knee and suprapatellar pouch was removed. The patella was then everted and held with 2 towel clips. The thickness of the patella was measured at 26 mm. Patellar resection was performed. Caliper showed the patella thickness now to be 15 mm. A size 41 trial was placed and had a great fit. The 3 drill holes were placed then the trial button was placed. The patellar thickness was now 26 mm which I was very happy with. The patellar trial was then removed, and the knee was flexed up. Retractors were placed to protect the MCL and LCL. Osteophytes were removed from the femoral condyles and intercondylar notch. The ACL and PCL were excised. Intramedullary drill guide was drilled into the femur. Distal femoral cutting guide was placed set at 5 degrees of valgus to resect 10 mm off the distal femur. Distal femoral resection was made without difficulty. The tibia was then exposed. The lateral meniscus was sharply excised. The tibial cutting jig was positioned in line with the tibial shaft in the coronal plane and with 3 degrees of posterior slope in the sagittal plane to resect 9 mm off the less involved compartment. The jig was then pinned in position and the tibial cut was made. We then brought the knee into full extension. Lamina spreaders were placed. The medial meniscus was excised. The extension block was then placed for 5 mm thickness poly. This gave us full extension and excellent stability to varus and valgus stress. Next the extension block was removed, the knee was flexed up, collateral ligaments were protected, and the epicondylar axis and Whitesides line were marked out on the distal femoral cut. Femoral sizing guide was placed. External rotation was set at 3 degrees so that the posterior cut would be parallel with the epicondylar axis and perpendicular with Whitesides line. The patient sized to a size 6 femur. 2 pins were then placed through the jig into the distal femur. The jig was removed and the appropriately sized 4-in-1 cutting jig was placed over the pins, then fixated to the bone using threaded, headed pins. We confirmed that we would not notch the femur with our anterior cut. Our 4 cuts were then made. The cutting jig was removed. The flexion block was then placed with the knee held at 90 degrees. There was excellent stability to varus and valgus at 90 degrees with no gapping medially or laterally. Next the box cutting jig was placed on the distal femur. The box cut was made and the femoral trial was impacted into position. Lug holes were drilled in the distal femur. We then reexposed the tibia. The tibia was sized to a 6 for a fixed-bearing component. The tibial tray with a 5 mm thickness polyethylene liner was placed on the cut tibial surface and the knee was brought through a full range of motion. There was excellent stability to varus valgus stress throughout a full range of motion, however he was a little bit tight in extension. Bovie electrocautery was used to cathie the tibia at the site where the tibial tray rested in full extension. We then flexed up the knee, removed the Trial components, and recut the distal femur to remove approximately another 2 mm off the distal femur. Trial components were once again placed, and he now achieved full extension easily. I then pinned the tibial tray into position to match the cautery cathie. The intramedullary drill followed by the keel punch were used to prepare the tibia. Next the trial components were removed. I then injected the posterior capsule and periosteum with the periarticular injection cocktail. The bone cuts were then irrigated and dried while the cement was mixed on the back table. The femoral component was cemented on first. Excess cement was removed. A lap sponge was placed over the femoral component for protection, then the tibia was subluxated anteriorly. The all polyethylene tibial component was then cemented in place. Again excess cement was removed. The knee was brought into full extension and held there until the cement cured. The patella was cemented and clamped. Dilute Betadine solution was then allowed to soak in the knee while the cement cured. Once the cement was fully cured, the knee was irrigated out, the tourniquet was let down and meticulous hemostasis was ensured. The knee was brought through a full range of motion. I was were very happy with the patella tracking and the stability. We then began to close. Interrupted 0 Vicryl suture was used to repair the patellar retinaculum in [id number] fashion. The quadriceps and patellar tendons were run with #1 Vicryl. The deep dermal layer was closed with interrupted 2-0 Vicryl. Dermabond and Zipline was used for the skin, followed by a Silverlon dressing. A compressive Chava wrap was placed and the knee was placed into a knee immobilizer. Patient's sedation was lifted and was transferred to recovery room in stable condition. Summary of implants: Depuy Attune Posterior Stabilized Cemented Femur, size 6 left Attune All-polyethylene tibial component, posterior stabilized 5 mm thickness, size 6 Attune patella medialized dome, size 41 2 batches of simplex high viscosity bone cement Postoperative course: Patient will be admitted to the floor for pain control and monitoring. Weightbearing as tolerated with a walker with no knee range of motion for 48 hours. Aspirin for DVT prophylaxis. I attest to the content of the Intraoperative Record and any orders documented therein. Any exceptions are noted below.
[2023-01-13] MEDS ORDERED: MAGNESIUM HYDROXIDE SUSP 30 ML UDC PO PRN (08:53)
[2023-01-13] MEDS ORDERED: PHARMACY GLYCEMIC MGMT CONSULT PRN (08:53)
[2023-01-13] MEDS ORDERED: HYDROmorphone INJ 0.5 MG/0.5 ML SYR IV PRN (08:53)
[2023-01-13] MEDS ORDERED: ALUMINUM/MAGNESIUM SUSP 30 ML UDC PO PRN (08:53)
[2023-01-13] MEDS ORDERED: bisacodyL 10 MG SUPP PR PRN (08:53)
[2023-01-13] MEDS ORDERED: TAMSULOSIN HCL 0.4 MG CAP PO PRN (08:53)
[2023-01-13] MEDS ORDERED: diphenhydrAMINE 50 MG/ML VIAL IV PRN (08:53)
[2023-01-13] MEDS ORDERED: METOCLOPRAMIDE HCL INJ 5 MG/ML 2 ML VIAL IV PRN (08:53)
[2023-01-13] MEDS ORDERED: NALOXONE HCL 0.4 MG/1 ML VIAL/CARP IV PRN (08:53)
--- NOTE | 2023-01-13 08:53 | Operative Report ---
Post Operative Report Pre & Post Diagnosis Operation Date: 01/13/23 07:00 Pre-Op Diagnosis: Left Knee Osteoarthritis Post-Op Diagnosis: Left Knee Osteoarthritis I identified the patient and participated in the time-out.: Yes Procedure Operation Date: 01/13/23 07:00 Actual Procedures p Left Total Knee Arthroplasty(Left) - Demarcus Worthy MD Surgeon Demarcus Worthy MD Puncher THOR Null PA-C. No resident or fellow was available to assist. Estimated Blood Loss 100 Findings Consistent with Post-Op Diagnosis Specimens none Description of Procedure I was present during the entire case assisting with positioning, prepping, draping, wound retraction, wound closure, dressing and immobilizer placement. No fellow present. Please see Dr. Wortyh procedure note for specifics of the case. I attest to the content of the Intraoperative Record and any orders documented therein. Any exceptions are noted below.
[2023-01-13] MEDS ORDERED: BACLOFEN 10 MG TAB PO PRN (08:57)
[2023-01-13] MEDS ORDERED: NITROGLYCERIN SL 0.4 MG/TAB TAB SL PRN (08:57)
[2023-01-13] MEDS ORDERED: NON-FORMULARY MEDICATION (Sildenafil 100 mg tablet) PO PRN (08:57)
[2023-01-13] MEDS ORDERED: ASPIRIN 81 MG CHEW PO SCH (09:00)
--- NOTE | 2023-01-13 09:14 | Anesthesiology Progress Note ---
Date of Service January 13, 2023 Anesthesia Post Procedure Vital Signs Vital Signs: Temp Pulse Resp BP Pulse Ox O2 Del Method O2 Flow Rate 01/13/23 09:10 62 18 145/77 H 96 Room Air 01/13/23 09:00 57 L 18 160/68 H 100 Oxymask 5 01/13/23 08:53 98.1 F 64 18 138/66 100 Oxymask 5 01/13/23 05:35 98.2 F 60 18 173/76 H 96 Room Air Pain Intensity Left Knee: Pain Intensity: 10 Transfer of Care Handoff Completed per policy Notes Mental Status: alert / awake / arousable and participated in evaluation Patient Amnestic to Procedure: Yes Nausea / Vomiting: adequately controlled Pain: adequately controlled Airway Patency, RR, SpO2: stable & adequate BP & HR: stable & adequate Hydration State: stable & adequate Neuraxial Anesthesia: was administered and sensory block is resolving Anesthetic Complications: no major complications apparent and Pt Satisfied with anesthetic care
--- NOTE | 2023-01-13 09:32 | XRay Report ---
XR knee LT 1 or 2V routine CLINICAL HISTORY: Surgical Post Op COMPARISON: Left knee radiographs December 28, 2022. FINDINGS: Left knee arthroplasty with polyethylene tibial component is noted. No periprosthetic frac ture is noted. There are no unexpected radiopaque foreign bodies. IMPRESSION: Expected findings following left knee arthroplasty. ACT 112: Negative or not required by law. Electronically signed by: Hossein Mathur M.D. 01/13/2023 9:31 AM
[2023-01-13] MEDS ORDERED: CLOBETASOL PROPIONATE 0.05% OINT 15 GM TUBE EXT PRN (10:36)
[2023-01-13] MEDS: DULoxetine HCL 30 MG CAP PO SCH ×2 (10:51→13:21)
[2023-01-13] MEDS: DOCUSATE SODIUM 100 MG CAP PO SCH ×3 (10:52→21:13)
[2023-01-13] MEDS: CYANOCOBALAMIN (B-12) 500 MCG TABLET PO SCH ×2 (10:52→13:21)
[2023-01-13] MEDS: amLODIPine BESYLATE 5 MG TAB PO SCH ×2 (10:53→13:20)
[2023-01-13] MEDS: MULTIVITAMIN TAB PO SCH ×2 (10:55→13:21)
[2023-01-13] MEDS: GABAPENTIN 600 MG TAB PO SCH ×5 (10:56→21:13)
--- NOTE | 2023-01-13 10:58 | Pharmacy Report ---
Pharmacy Glycemic Short Note 2 - Date of Service January 13, 2023 - Glycemic Short BSG Results (Last 24 hours): 01/13/23 01/13/23 05:39 08:58 POC Glucose 122 H 141 H OUTPATIENT ANTIDIABETIC REGIMEN: * Metformin 500 mg PO BID ASSESSMENT: * Juan David is a 77 yo T2DM admitted for left TKA * Unknown A1c. Pre-op BSG was near goal (122 mg/dL). No pre or post op steroids ordered. * Will start weight based novolog with correction factor and carb ratio while metformin is on hold. Can likely resume metformin tomorrow AM. * Will hold off on any basal insulin at this time. PLAN FOR INPATIENT GLYCEMIC CONTROL: * Hold outpatient oral diabetes medications * Basal insulin * none * Bolus insulin * NovoLog per scale ACHS or Q6hrs while NPO * Goal Range: Low 110 mg/dL - High 140 mg/dL * Correction Factor: 30 mg/dL/unit * Nutritional / Prandial insulin per carb ratio of 1 unit per 10 grams CHO consumed
[2023-01-13] MEDS ORDERED: DEXTROSE 50% 50 ML SYRINGE IV PRN (11:00)
[2023-01-13] MEDS ORDERED: GLUCOSE 10 TAB/TUBE PO PRN (11:00)
[2023-01-13] MEDS ORDERED: GLUCOSE 40% GEL 15 GM TUBE PO PRN (11:00)
[2023-01-13] MEDS ORDERED: CARBOHYDRATES FOR HYPOGLYCEMIA PO PRN (11:00)
[2023-01-13] MEDS ORDERED: GLUCAGON FOR INJ 1 MG VIAL IM PRN (11:00)
[2023-01-13] MEDS: KETOROLAC TROMETHAMINE 15 MG/ML VIAL IV SCH ×3 (11:02→22:16)
[2023-01-13] MEDS: oxyCODONE HCL IR 5 MG TAB (IMMEDIATE RELEASE) PO PRN ×2 (12:33→19:41)
[2023-01-13] MEDS: METOPROLOL TARTRATE 50 MG TAB PO SCH ×2 (12:34→21:12)
[2023-01-13] MEDS: hydroCHLOROthiazide 25 MG TAB PO SCH (12:35)
[2023-01-13] MEDS: LOSARTAN POTASSIUM 50 MG TAB PO SCH (13:36)
[2023-01-13] MEDS: SODIUM CHLORIDE 0.9% 1,000 ML IV SCH (13:36)
[2023-01-13] MEDS: ROSUVASTATIN CALCIUM 20 MG TAB PO SCH (13:36)
[2023-01-13] MEDS: INSULIN ASPART PER UNIT CHARGE SC SCH ×3 (13:40→21:00)
[2023-01-13] MEDS ORDERED: TRANEXAMIC ACID / 0.7% NACL 1,000 MG/100 ML BAG IV SCH (15:00)
[2023-01-13] MEDS: ACETAMINOPHEN 500 MG TAB PO SCH ×2 (15:12→21:13)
[2023-01-13] MEDS: Scopolamine CHECK PATCH PLACEMENT SCH (15:14)
[2023-01-13] MEDS: ceFAZolin 2000MG 2,000 MG/15 ML SYR IV SCH ×2 (16:09→22:17)
--- NOTE | 2023-01-13 17:33 | XRay Report ---
XR pelvis 1-2V routine HISTORY: 77 years-old Male patient fell acute pelvic pain status post fall COMPARISON: CT 07/16/2017 TECHNIQUE: AP view the pelvis FINDINGS: Partially imaged hardware of the lumbosacral spine with iliac bones. Moderate left and severe right h ip osteoarthritis. No acute fracture, dislocation or suspicious bone lesion identified. IMPRESSION: 1. No acute fracture or dislocation. 2. Severe right hip osteoarthritis. ACT 112: Negative or not required by law. The above report was generated using voice recognition software. It may contain grammatical, syntax o r spelling errors. Electronically signed by: Antonio Robbins M.D. 01/13/2023 5:32 PM
--- NOTE | 2023-01-13 18:57 | CT Scan Report ---
CT head/brain wo con CLINICAL HISTORY: 77 years-old Male with s/p fall and hit head post op. Acute head injury status pos t fall TECHNIQUE: Multiple axial CT images of the head were obtained without contrast. A dose lowering tech nique was utilized adhering to the principles of ALARA. CT DOSE: 625.80 mGy.cm COMPARISON: None. FINDINGS: No acute intracranial hemorrhage, midline shift, intracranial mass, hydrocephalus, territorial ischem ia or abnormal extra-axial collection. Involutional changes with chronic microvascular ischemic disea se. Cerebrovascular calcifications. The calvarium is intact. Mild mucosal thickening of the ethmoid air cells. The mastoid air cells are clear. IMPRESSION: No acute intracranial abnormality or calvarial fracture. ACT 112: Negative or not required by law. The above report was generated using voice recognition software. It may contain grammatical, syntax o r spelling errors. Electronically signed by: Antonio Robbins M.D. 01/13/2023 6:56 PM
[2023-01-13] MEDS: SENNA 8.6 MG TAB PO SCH (21:12)
[2023-01-13] MEDS: FAMOTIDINE 20 MG TAB PO SCH (21:13)
[2023-01-14] MEDS: SODIUM CHLORIDE 0.9% 1,000 ML IV SCH (00:03)
[2023-01-14] MEDS: ACETAMINOPHEN 500 MG TAB PO SCH ×3 (05:55→20:46)
[2023-01-14] MEDS: KETOROLAC TROMETHAMINE 15 MG/ML VIAL IV SCH (05:55)
[2023-01-14] MEDS: oxyCODONE HCL IR 5 MG TAB (IMMEDIATE RELEASE) PO PRN ×3 (06:01→22:54)
[2023-01-14] MEDS ORDERED: metFORMIN HCL 500 MG TAB PO SCH (08:00)
[2023-01-14] MEDS: INSULIN ASPART PER UNIT CHARGE SC SCH (08:09)
[2023-01-14] MEDS: METOPROLOL TARTRATE 50 MG TAB PO SCH ×2 (08:22→20:42)
[2023-01-14] MEDS: Scopolamine CHECK PATCH PLACEMENT SCH ×3 (08:22→17:39)
[2023-01-14] MEDS: GABAPENTIN 600 MG TAB PO SCH ×4 (08:22→20:41)
[2023-01-14] MEDS: ROSUVASTATIN CALCIUM 20 MG TAB PO SCH (08:23)
[2023-01-14] MEDS: ASPIRIN 81 MG ECTAB PO SCH ×2 (08:23→20:41)
[2023-01-14] MEDS: MULTIVITAMIN TAB PO SCH (08:23)
[2023-01-14] MEDS: amLODIPine BESYLATE 5 MG TAB PO SCH (08:23)
[2023-01-14] MEDS: DULoxetine HCL 30 MG CAP PO SCH (08:23)
[2023-01-14] MEDS: hydroCHLOROthiazide 25 MG TAB PO SCH (08:23)
[2023-01-14] MEDS: CYANOCOBALAMIN (B-12) 500 MCG TABLET PO SCH (08:23)
[2023-01-14] MEDS: LOSARTAN POTASSIUM 50 MG TAB PO SCH (08:23)
[2023-01-14] MEDS: DOCUSATE SODIUM 100 MG CAP PO SCH ×2 (08:25→20:42)
[2023-01-14 08:55] LABS: Hematocrit (blood only) 36.1 % (42.0-52.0); Hemoglobin 12.1 g/dl (14.0-18.0); Mean Corpuscular Hemoglobin 29.4 pg (25.0-34.0); Mean Corpuscular Hgb Conc 33.5 g/dL (32.0-36.0); Mean Corpuscular Volume 87.6 fL (80.0-100.0); Platelet Count 203 K/uL (130-400); RDW Coefficient of Variation 13.9 % (11.5-14.5); Red Blood Count 4.12 M/uL (4.70-6.10); White Blood Count 9.81 K/ul (4.8-10.8)
[2023-01-14 09:22] LABS: BUN Creatinine Ratio 13.8 (10-20); Calcium 8.9 mg/dl (8.6-10.3); Creatinine Clr Calc Pharmacy 64.7 ml/min; Est GFR (African American) 90.9 ml/min; Est GFR (Non-African American) 78.4 ml/min; Potassium 3.3 mmol/L (3.5-5.1)
[2023-01-14 09:44] LABS: Estimated Average Glucose 120 mg/dl; Hemoglobin A1C 5.8 % (4.5-5.6)
--- NOTE | 2023-01-14 09:49 | Pharmacy Report ---
Pharmacy Glycemic Sign Off Nt - Date of Service January 14, 2023 - Assessment & Plan ASSESSMENT: * Pharmacy was consulted by Ramírez Null PA-C on 01/13/23 for glycemic control and to write orders per [facility] inpatient glycemic control protocol. * Major changes made by pharmacy to antidiabetic regimen include: * addition of Novolog * Patient has been receiving/requiring 0 units of insulin per day for adequate glycemic control * BSGs ranging 105-127 mg/dl * Regimen has only required minor adjustments over the past 48hrs to achieve this level of control * Do not anticipate further changes in patient status that would quickly deteriorate glycemic control (i.e. patient to be NPO for upcoming procedure, steroids tapering, starting tube feedings, etc). PLAN FOR INPATIENT GLYCEMIC CONTROL: No changes needed to current regimen. * Hold basal and bolus insulin * Restart metformin 500 mg PO BIDM (home medication) * SCr: 0.94 mg/dL (eCrCl: 65 mL/min) * Pharmacy is signing off of glycemic consult and will no longer be making adjustments to inpatient regimen. Please feel free to re-consult if needed. Thank you.
--- NOTE | 2023-01-14 10:14 | Orthopedic Progress Note ---
Date of Service January 14, 2023 Assessment & Plan (1) S/P total knee arthroplasty: Plan: PT/OT Ice with easy wrap Immobilizer use x48 hours Weightbearing as tolerated with walker assistance Pain control with p.o. medication DVT prophylaxis with MODESTA stockings and aspirin We will need to be cleared by medicine service before discharge. If cleared medically we will discharge the patient home today with in-home health services for the next 2 weeks. Follow-up at [facility] orthopedics as previously scheduled. Keep Silverlon dressing until follow-up. With questions contact our clinic at [phone] Admission and Anticipated Discharge Date Admission Date: January 13, 2023 Subjective This 77-year-old male is day 1 status post left total knee arthroplasty. Patient states he is doing very well this morning. He states the last evening he was getting out of bed with assistance and did not have his socks on and slipped because he feels that the Chava wrap was not providing any friction on the floor. He did not fall the way to the ground but did strike his head off of the IV machine and tower. States he did not hurt his knee or any other part of his body. He denies any loss of consciousness, blurred vision, lightheadedness. He states that he feels bad for the nurses because they were upset when this happened. States his pain in his knee is controlled well with the p.o. medication he is using. He denies chest pain, shortness of breath, fever, chills, sweats or numbness or tingling in the left lower extremity. He also den ies nausea, vomiting, diarrhea or difficulty voiding. He states that he is still has not seen the medicine doctor yet. Advised him that he will need to be cleared by their service before we can discharge him. Review of Systems Review of Systems: All systems reviewed & are unremarkable except as noted in Subjective Physical Exam Physical Exam: Left knee: Outer dressing was removed. Silverlon is clean dry and intact and left in place. Knee range of motion is from 0 degrees of extension to 85 degrees of flexion actively. Patient is able to actively perform active straight leg raise test and actively dorsi and plantarflex his foot. He does have some mild edema about the knee but no erythema, ecchymosis or significant effusion. His quad strength is 3+ out of 5. He is neurovascularly intact in the left lower extremity. Results & Data Vital Signs (Past 12 Hours) Vital Signs Temp Pulse Pulse Resp BP Pulse Ox O2 Del Method 01/14/23 07:38 36.6 C 50 L 16 137/55 L 94 Room Air 01/14/23 06:13 36.5 C 55 L 16 146/66 H 96 Room Air 01/13/23 22:41 36.7 C 57 L 18 164/66 H 94 Room Air Diagnostic Findings Laboratory Results WBC 9.81 K/ul (4.8-10.8) 01/14/23 08:31 RBC 4.12 M/uL (4.70-6.10) L 01/14/23 08:31 Hgb 12.1 g/dl (14.0-18.0) L 01/14/23 08:31 Hct 36.1 % (42.0-52.0) L 01/14/23 08:31 MCV 87.6 fL (80.0-100.0) 01/14/23 08:31 MCH 29.4 pg (25.0-34.0) 01/14/23 08:31 MCHC 33.5 g/dL (32.0-36.0) 01/14/23 08:31 RDW Std Deviation 44.0 fL (36.4-46.3) 01/14/23 08:31 RDW Coeff of Art 13.9 % (11.5-14.5) 01/14/23 08:31 Plt Count 203 K/uL (130-400) 01/14/23 08:31 MPV 11.0 fL (9.4-12.4) 01/14/23 08:31 Sodium 141 mmol/L (136-145) 01/14/23 08:31 Potassium 3.3 mmol/L (3.5-5.1) L 01/14/23 08:31 Chloride 104 mmol/L (98-107) 01/14/23 08:31 Carbon Dioxide 31 mmol/L (21-32) 01/14/23 08:31 Anion Gap 6 (3-11) 01/14/23 08:31 BUN 13 mg/dl (6-23) 01/14/23 08:31 Creatinine 0.94 mg/dl (0.6-1.4) 01/14/23 08:31 Est Cr Clr Drug Dosing 64.7 ml/min 01/14/23 08:31 Est GFR ( Amer) 90.9 ml/min 01/14/23 08:31 Est GFR (Non-Af Amer) 78.4 ml/min 01/14/23 08:31 BUN/Creatinine Ratio 13.8 (10-20) 01/14/23 08:31 Glucose 106 mg/dl (70-99(Fasting)) H 01/14/23 08:31 POC Glucose 105 mg/dl (70-99) H 01/14/23 07:38 Estimat Average Glucose 120 mg/dl 01/14/23 08:31 Hemoglobin A1c 5.8 % (4.5-5.6) H 01/14/23 08:31 Calcium 8.9 mg/dl (8.6-10.3) 01/14/23 08:31 Blood Type B Positive 01/13/23 06:02 Antibody Screen NEGATIVE 01/13/23 06:02 Impressions Knee X-Ray 01/13/23 08:53 XR knee LT 1 or 2V routine CLINICAL HISTORY: Surgical Post Op COMPARISON: Left knee radiographs December 28, 2022. FINDINGS: Left knee arthroplasty with polyethylene tibial component is noted. No periprosthetic fracture is noted. There are no unexpected radiopaque foreign bodies. IMPRESSION: Expected findings following left knee arthroplasty. ACT 112: Negative or not required by law. Electronically signed by: Hossein Mathur M.D. 01/13/2023 9:31 AM Pelvis X-Ray 01/13/23 16:02 XR pelvis 1-2V routine HISTORY: 77 years-old Male patient fell acute pelvic pain status post fall COMPARISON: CT 07/16/2017 TECHNIQUE: AP view the pelvis FINDINGS: Partially imaged hardware of the lumbosacral spine with iliac bones. Moderate left and severe right hip osteoarthritis. No acute fracture, dislocation or suspicious bone lesion identified. IMPRESSION: 1. No acute fracture or dislocation. 2. Severe right hip osteoarthritis. ACT 112: Negative or not required by law. The above report was generated using voice recognition software. It may contain grammatical, syntax or spelling errors. Electronically signed by: Antonio Robbins M.D. 01/13/2023 5:[address] 01/13/23 17:22 CT head/brain wo con CLINICAL HISTORY: 77 years-old Male with s/p fall and hit head post op. Acute head injury status post fall TECHNIQUE: Multiple axial CT images of the head were obtained without contrast. A dose lowering technique was utilized adhering to the principles of ALARA. CT DOSE: 625.80 mGy.cm COMPARISON: None. FINDINGS: No acute intracranial hemorrhage, midline shift, intracranial mass, hydrocephalus, territorial ischemia or abnormal extra-axial collection. Involutional changes with chronic microvascular ischemic disease. Cerebrovascular calcifications. The calvarium is intact. Mild mucosal thickening of the ethmoid air cells. The mastoid air cells are clear. IMPRESSION: No acute intracranial abnormality or calvarial fracture. ACT 112: Negative or not required by law. The above report was generated using voice recognition software. It may contain grammatical, syntax or spelling errors. Electronically signed by: Antonio Robbins M.D. 01/13/2023 6:56 PM
--- NOTE | 2023-01-14 10:52 | Consultation ---
Date of Consultation January 13, 2023 Assessment & Plan (1) Head injury: (2) Fall: (3) S/P total knee arthroplasty: (4) HTN (hypertension): Plan Pt is a 77yoM with PMhx significant for HTN, DMII, HLD, chronic pain, ED admitted for L TKA done on 01/13/2023. The hospitalist service was consulted after a fall with a possible head injury. Fall/Head injury Per pt, he was not wearing socks. Slipped while trying to get out of bed. States that he hit his head on the nearby BP machine. Denies LOC, headache or pain in the area of the head that was hit. No visible bruising on exam. Head CT ordered- no acute changes. Pt stable We will continue to monitor for acute neuro changes while hospitalized TKA Pt POD #0 s/p L TKA, following with ortho States that he did not hurt his left leg during the fall, notes it "gives out" all the time. Pain control, PT/OT Management per orthopedics. HTN, DMII, HLD- continue home medications CODE STATUS: Full code Diet: DMII DVT Prophylaxis: TEDS and aspirin per ortho. Dispo: d/c per primary service Thank you for this consultation. We will follow the patient with you during their hospital stay. You can reach a member of the [facility] Hospitalist Team 13/12 via the hospitalist role on tiger text. History of Present Illness Requesting Physician: Demarcus Romano Reason for Consultation: Fall with head injury Attending Physician: Demarcus Worthy MD History of Present Illness Pt is a 77yoM with PMhx significant for HTN, DMII, HLD, chronic pain, ED admitted for L TKA done on 01/13/2023. The hospitalist service was consulted after a fall with a possible head injury in his room. POD #0, pt states he was getting out of bed when he fell and hit the back of his head only on the blood pressure machine near the bed. States he was not wearing the hospital socks and he slipped and fell. States that this is typical for him as his legs often give out under him. States he did not injure his left leg. Denies pain in the back of his head, headache or LOC. States that he feels fine but was just worried about "the two girls" who were helping him and wanted to make sure he was doing well. Allergies Allergy/AdvReac Type Severity Reaction Status Date / Time lisinopril AdvReac Mild Cough Verified 01/13/23 05:36 Home Medications Medication Instructions Recorded Confirmed Type baclofen 10 mg tablet 10 mg PO TID PRN Muscle Spasm 01/12/19 01/13/23 History clobetasol 0.05 % topical cream 1 appln topical DAILY PRN Skin 01/12/19 01/13/23 History Irritation gabapentin 600 mg tablet 600 mg PO QID 01/12/19 01/13/23 History metoprolol tartrate 50 mg tablet 50 mg PO BID 01/12/19 01/13/23 History nitroglycerin 0.4 mg sublingual 0.4 mg sublingual Q5M PRN Chest 01/12/19 01/13/23 History tablet Pain rosuvastatin 20 mg tablet (Crestor) 20 mg PO QAM 01/12/19 01/13/23 History sildenafil 100 mg tablet 100 mg PO DAILY PRN Sexual Activity 02/01/19 01/13/23 History amlodipine 5 mg tablet 5 mg PO QAM 12/21/22 01/13/23 History cyanocobalamin (vitamin B-12) 1,000 mcg PO QAM 12/21/22 01/13/23 History 1,000 mcg tablet duloxetine 30 mg capsule,delayed 30 mg PO QAM 12/21/22 01/13/23 History release famotidine 20 mg tablet 20 mg PO QPM 12/21/22 01/13/23 History hydrochlorothiazide 25 mg tablet 25 mg PO 6XWK 12/21/22 01/13/23 History hydrochlorothiazide 50 mg tablet 50 mg PO WK 12/21/22 01/13/23 History losartan 100 mg tablet 100 mg PO QAM 12/21/22 01/13/23 History metformin 500 mg tablet 500 mg PO BID 12/21/22 01/13/23 History acetaminophen 500 mg tablet 1,000 mg PO Q8H post op pain 01/14/23 Rx (Tylenol Extra Strength) relief 30 days #180 tabs aspirin 81 mg tablet,delayed 81 mg PO BID 30 days #60 tabs 01/14/23 Rx release diclofenac sodium 75 mg 75 mg PO BID Post op pain and 01/14/23 Rx tablet,delayed release inflammation relief 30 days #60 tabs oxycodone 5 mg tablet 5 - 10 mg PO Q4H PRN Post op pain 01/14/23 Rx control #28 tabs Patient History Medical History Coronary artery disease s/p 3 CONNOR 2010 Diabetes mellitus, type 2 NIDDM Gout HTN (hypertension) controlled, stable per pt Hyperlipidemia Medical marijuana use Neuropathy of both feet Surgical History History of cardiac cath 03/20/11 @ [facility] with 3 CONNOR placed (pt states was on plavix taken off roughly 6 months ago)--follows with Emerson Hampton PA-C @ [place] History of carpal tunnel release of both wrists History of colonoscopy History of decompression of ulnar nerve right History of heart artery stent 3 CONNRO placed 03/20/11 @ [facility] History of hernia surgery History of repair of right rotator cuff History of spinal fusion x3--per pt from cervical to lumbar region, normal ROM History of tooth extraction Status post trigger finger release Family History Other No family history of adverse response to anesthesia Social History Smoking Status: Former smoker Tobacco Type: Cigarettes Smoking End Date: quit 1984; Second Hand Exposure: No; Do You Dip or Chew Tobacco: No; Tobacco Cessation Education Requested by Patient: No Hx Alcohol Use: Yes Alcohol type: beer Hx Substance Use: No Preferred Language: Palauan Communication Ability: Effective Commercial Intelligence Manager Required: No Beliefs That Will Affect Care: None Current Living Situation: Alone Other Information That Helps Us Care for You: No Feels Safe at Home: Yes Safety Concerns: Feels Safe At This Time Assistive Devices: None Review of Systems Review of Systems: All systems reviewed & are unremarkable except as noted in HPI & below Physical Exam Physical Exam: General: Alert, oriented. No acute distress Skin: No noted rashes or bruises Psych: Appropriate mood and affect Neuro: No gross deficits HEENT: NC/AT CV: RRR, Normal s1, s2. No murmurs appreciated Resp: no increased effort of breathing. Abdomen: Soft, nontender, nondistended Extremities: left lower extremity bandaged and in brace Results & Data Vital Signs (Past 12 Hours) Vital Signs Temp Pulse Pulse Resp BP Pulse Ox O2 Del Method 01/13/23 15:39 36.5 C 65 16 133/68 99 Room Air 01/13/23 15:18 36.5 C 61 18 135/69 94 Room Air 01/13/23 14:23 36.5 C 60 16 135/65 93 Room Air 01/13/23 13:21 36.3 C L 68 16 152/73 H 94 Room Air 01/13/23 12:52 36.6 C 62 16 139/58 L 95 Room Air 01/13/23 12:20 36.5 C 58 L 18 167/75 H 94 Room Air 01/13/23 11:54 36.7 C 58 L 18 138/69 94 Room Air 01/13/23 11:20 36.2 C L 58 L 17 134/64 96 Room Air 01/13/23 10:50 59 L 17 137/64 95 Room Air 01/13/23 10:20 59 L 18 138/68 95 Room Air 01/13/23 10:05 58 L 16 138/53 L 95 Room Air 01/13/23 09:50 51 L 15 130/56 L 93 Room Air 01/13/23 09:35 58 L 16 140/83 97 Room Air 01/13/23 09:20 36.8 C 59 L 16 120/70 95 Room Air 01/13/23 09:10 62 18 145/77 H 96 Room Air 01/13/23 09:00 57 L 18 160/68 H 100 Oxymask 01/13/23 08:53 36.7 C 64 18 138/66 100 Oxymask O2 Flow Rate 01/13/23 15:39 01/13/23 15:18 01/13/23 14:23 01/13/23 13:21 01/13/23 12:52 01/13/23 12:20 01/13/23 11:54 01/13/23 11:20 01/13/23 10:50 01/13/23 10:20 01/13/23 10:05 01/13/23 09:50 01/13/23 09:35 01/13/23 09:20 01/13/23 09:10 01/13/23 09:00 5 08/24/23 08:53 5 Diagnostic Findings Pelvis X-Ray 01/13/23 16:02 XR pelvis 1-2V routine HISTORY: 77 years-old Male patient fell acute pelvic pain status post fall COMPARISON: CT 07/16/2017 TECHNIQUE: AP view the pelvis FINDINGS: Partially imaged hardware of the lumbosacral spine with iliac bones. Moderate left and severe right hip osteoarthritis. No acute fracture, dislocation or suspicious bone lesion identified. IMPRESSION: 1. No acute fracture or dislocation. 2. Severe right hip osteoarthritis. ACT 112: Negative or not required by law. The above report was generated using voice recognition software. It may contain grammatical, syntax or spelling errors. Electronically signed by: Antonio Robbins M.D. 01/13/2023 5:[address] 01/13/23 17:22 CT head/brain wo con CLINICAL HISTORY: 77 years-old Male with s/p fall and hit head post op. Acute head injury status post fall TECHNIQUE: Multiple axial CT images of the head were obtained without contrast. A dose lowering technique was utilized adhering to the principles of ALARA. CT DOSE: 625.80 mGy.cm COMPARISON: None. FINDINGS: No acute intracranial hemorrhage, midline shift, intracranial mass, hydrocephalus, territorial ischemia or abnormal extra-axial collection. Involutional changes with chronic microvascular ischemic disease. Cerebrovascular calcifications. The calvarium is intact. Mild mucosal thickening of the ethmoid air cells. The mastoid air cells are clear. IMPRESSION: No acute intracranial abnormality or calvarial fracture. ACT 112: Negative or not required by law. The above report was generated using voice recognition software. It may contain grammatical, syntax or spelling errors. Electronically signed by: Antonio Robbins M.D. 01/13/2023 6:56 PM
[2023-01-14] MEDS ORDERED: POTASSIUM CHLORIDE CRTAB 20 MEQ TABCR PO STA (11:05)
--- NOTE | 2023-01-14 11:52 | Hospitalist Progress Note ---
Date of Service January 14, 2023 Assessment & Plan (1) Head injury: (2) Fall: (3) S/P total knee arthroplasty: (4) HTN (hypertension): Plan Pt is a 77yoM with PMhx significant for HTN, DMII, HLD, chronic pain, ED admitted for L TKA done on 01/13/2023. The hospitalist service was consulted after a fall with a possible head injury. POD#1 Fall/Head injury Per pt, he was not wearing socks. Slipped while trying to get out of bed. States that he hit his head on the nearby BP machine. Denies LOC, headache or pain in the area of the head that was hit. No visible bruising on exam. Neuro exam with no gross deficits except in LLE that was recently operated on. Head CT ordered- no acute changes. Pt continues to remain stable, and is medically stable for discharge once cleared by orthopedics. We will continue to monitor for acute neuro changes while hospitalized. TKA Pt is POD #1 s/p L TKA, following with ortho States that he did not hurt his left leg during the fall, notes it "gives out" all the time. Pain control, PT/OT Management per orthopedics. HTN, DMII, HLD- continue home medications CODE STATUS: Full code Diet: DMII DVT Prophylaxis: TEDS and aspirin per ortho. Dispo: d/c per primary service Thank you for this consultation. We will follow the patient with you during their hospital stay. You can reach a member of the [facility] Hospitalist Team 13/12 via the hospitalist role on tiger text. Admission and Anticipated Discharge Date Admission Date: January 13, 2023 Subjective Pt seen this AM. States that he continues to feel fine. Denies once more any complaints of headache, LOC, pain in the head area after his fall yesterday. Review of Systems Review of Systems: All systems reviewed & are unremarkable except as noted in Subjective Physical Exam Physical Exam: General: Alert, oriented. No acute distress Skin: No noted rashes or bruises Psych: Appropriate mood and affect Neuro: No gross deficits except in LLE HEENT: NC/AT CV: RRR, Normal s1, s2. No murmurs appreciated Resp: no increased effort of breathing. Abdomen: Soft, nontender, nondistended Extremities: left lower extremity bandaged and in brace Results & Data Results & Data Vital Signs (Past 12 Hours) Vital Signs Temp Pulse Pulse Resp BP Pulse Ox O2 Del Method 01/14/23 11:27 36.8 C 62 18 146/64 H 94 Room Air 01/14/23 07:38 36.6 C 50 L 16 137/55 L 94 Room Air 01/14/23 06:13 36.5 C 55 L 16 146/66 H 96 Room Air
--- NOTE | 2023-01-14 12:11 | Discharge Summary ---
Date of Service January 14, 2023 Admission HPI Per Admitting Provider History of Present Illness (including history relevant to procedure): This 77-year-old male presents the clinic today for his preoperative history and physical. Patient complains of significant left-sided knee pain that has been ongoing for the past year and a half. He has failed conservative management with the use of nonsteroidal agents along with multiple corticosteroid injections. States he attempted physical therapy which made it worse. Patient was just recently cleared by his executive creative director and his primary care provider to proceed with surgical intervention. He has undergone a cardiac stress test whic h was unremarkable. He has slowed his hemoglobin A1c to 5.6. He states his executive creative director recently discontinued his Plavix and only has him on aspirin for blood thinning agent. Patient is very anxious to proceed with surgical intervention for his left knee osteoarthritis. Review Of Systems: A 12 point review of systems is formed and is unremarkable except for those things stated in the HPI and past medical history. Past Medical History: Problems: Aortoiliac occlusive disease Lumbar spinal stenosis Dyslipidemia HTN (hypertension) H/O right coronary artery stent placement History of PTCA CAD (coronary artery disease) History of myocardial infarction Diabetes Procedure History Procedure Procedure Date Comments PTCA - Percutaneous transluminal coronary angioplasty x3 stents RCA Back surgery Allergies and Sensitivities: lisinopril(Cough) Current Home Meds: (Last Updated 12/28 13:35) aspirin (aspirin 81 mg oral delayed release tablet) 81 mg PO Daily baclofen (baclofen 10 mg oral tablet) 10 mg PO tid clobetasol topical (clobetasol 0.05% topical cream) 1 appl topical Daily clopidogrel (clopidogrel 75 mg oral tablet) 75 mg PO Daily gabapentin (gabapentin 600 mg oral tablet) 600 mg PO qid hydroCHLOROthiazide metoprolol (metoprolol tartrate 50 mg oral tablet) 50 mg PO bid nitroglycerin (nitroglycerin 0.4 mg sublingual tablet) 0.4 mg SL q5min PRN: as needed for chest pain rosuvastatin (rosuvastatin 20 mg oral tablet) 20 mg PO qhs sildenafil (sildenafil 100 mg oral tablet) 100 mg PO Daily PRN: as needed for erectile dysfunction Admission Exam Per Admitting Provider Physical Exam: (relevant to the procedure, including heart and lung evaluation) General: Alert and oriented x 3 with proper grooming and hygiene Eyes: Pupils are equal reactive to light with accommodation. Extraocular movements are intact Throat: Posterior oropharynx clear with absence of edema, erythema or exudate. Patient has dentures Cardiac: Regular rate and rhythm with no murmurs or gallops appreciated Lungs: Clear to auscultation throughout with no wheezing, rales or rhonchi Abdomen: Obese, nondistended, nontender with NABS Extremities: Left Knee: ROM 8-100. MJLT. Varus malalignment. NV intact Neuro: Cranial nerves II through XII are intact no motor or sensory deficit Skin: Normal in appearance with no open skin areas or discharge Principal Diagnosis left knee osteoarthritis Discharge Exam Left knee: Outer dressing was removed. Silverlon is clean dry and intact and left in place. Knee range of motion is from 0 degrees of extension to 85 degrees of flexion actively. Patient is able to actively perform active straight leg raise test and actively dorsi and plantarflex his foot. He does have some mild edema about the knee but no erythema, ecchymosis or significant effusion. His quad strength is 3+ out of 5. He is neurovascularly intact in the left lower extremity. Discharge Data Allergies Allergy/AdvReac Type Severity Reaction Status Date / Time lisinopril AdvReac Mild Cough Verified 01/13/23 05:36 Consultations 01/13/23 16:03 Consult Hospitalist Routine Procedures Performed Operation Date: 01/13/23 07:00 Actual Procedures p Left Total Knee Arthroplasty(Left) - Demarcus Worthy MD Ordered Studies 01/13/23 05:00 US - OR guided needle placemen Routine 01/13/23 17:[address] [CT head/brain wo con] Stat Hospital Course (1) S/P total knee arthroplasty: Patient had an event last evening when he apparently fell striking his head off the IV tower machine. He states that he did not fall completely to the ground because he was caught by medicine staff helping him to use the bathroom. States that his head feels fine. In regards to his knee his pain is well controlled with the p.o. pain medication. If at all possible he would like to be discharged home. I did speak with the medicine service who evaluated the patient last evening and this morning Dr. Gilman. CT scan was ordered that was unremarkable. They feel that the patient is stable for discharge medically. PT/OT Ice with easy wrap Immobilizer use x48 hours Weightbearing as tolerated with walker assistance Pain control with p.o. medication DVT prophylaxis with MODESTA stockings and aspirin We will need to be cleared by medicine service before discharge. If cleared medically we will discharge the patient home today with in-home health services for the next 2 weeks. Follow-up at [facility] as previously scheduled. Keep Silverlon dressing until follow-up. With questions contact our clinic at [phone] Total Time Total Time Spent Total Time Spent (In Minutes): 25 mins Discharge Plan Discharge Items Patient Disposition: Home - Home Health Services Reason For Visit: Left Knee Osteoarthritis Discharge Diagnosis: Left Knee Osteoarthritis Activity: As commented below Lifting: None Bathing: Keep incision dry Bathing Comment: May shower tomorrow Sexual Activity: Wait until after follow-up appointment Exercise/Sports: Wait until after follow-up appointment Driving/Machine Use: No driving until cleared by natural resource specialist Weightbearing: Left weightbearing Weightbearing Comment: as tolerate with walker and immobilizer x 48 hrs Non-emergency contact: Surgeon Call non-emergency contact if: you have any medication questions, your pain is not controlled, your temperature is above 101.5, your wound has increased drainage and your wound pain has increased Follow-up/Referrals: Chandrika Lind MD [Primary Care Provider] - Diet: Carb Consistent or DM2 Addtl Attending Provider Instructions: Post-operative Instructions Dear Patient and Family/Friends, Before you are discharged from the hospital, it is important to know what to expect when you get home after surgery. To that end, we have created this sheet of discharge instructions which covers many commonly asked questions. Make sure you go through this sheet in its entirety with your nurse before you are discharged. Please note that we will go over the specifics of your surgery and recovery when you return for your first post-operative visit. Sincerely, Dr. Worthy Medications 1. Oxycodone 5 mg: take 1-2 tabs every 4-6 hours as needed for pain control. This will be sent to your pharmacy. 2. Diclofenac Sodium 75 mg: take 1 tab twice daily for 30 days post operatively for pain and inflammation relief. This will be sent to your pharmacy with 1 refill. 3. Aspirin 81 mg: increase your daily aspirin to twice daily for 30 days post operatively for blood clot prevention. 4. Extra Strength Tylenol 500 mg: take 2 tabs every 6-8 hours as needed for additional pain relief. Please purchase. Pain Expect to be in a fair amount of pain after surgery. Remember, our goal is not to eliminate your pain, but to make it tolerable. It is a good idea to stay ahead of your pain by taking the medications you were prescribed once you get home. Typically, the pain starts improving 3-7 days after surgery. You should start weaning off the narcotic pain medication (oxycodone, hydrocodone, hydromorphone, morphine) as soon as your pain improves. Please call our office if your pain is not adequately controlled. Ice Ice your operative site at least 5 times a day for 15-30 minutes at a time. Make sure you have a thin cloth between the ice or cooling unit and your skin to prevent frazier bite. This is especially important if you received a nerve block. Continue icing your operative site for the first 5-7 days after surgery, then as needed. Diet/Nausea/Vomiting Start by drinking clear liquids and eating crackers. If you can tolerate this, then you may resume your normal diet. If you feel nauseated or vomit, take Zofran/ondansetron (if prescribed). Please call our office if you have intractable nausea or vomiting, or, if after hours, you may go to the Emergency Room for help. Constipation Constipation is a common side effect of narcotic pain medication. If you have not had a bowel movement within 2 days after surgery, we recommend purchasing an over the counter laxative such as Milk of Magnesia, Dulcolax, or Miralax from a local pharmacy, and taking it as instructed. Call our clinic if any questions. Slings and Braces If you were placed in a sling or brace, it must be worn at all times, including sleep. You may remove your sling or brace for physical therapy, home exercises, and showering. The length of time you will be in your brace and range of motion restrictions depends on what surgery you had; these details will be reviewed at your first post-operative appointment. Nerve block The anesthesia team sometimes places a nerve block to help with post-operative pain control. This results in significant numbness and inability to move the extremity. The nerve block usually wears off in 8-12 hours, but sometimes can last up to 24 hours. Please call our office if you are still unable to move your extremity after 24 hours, unless you received a pain pump to take home. Nerve blocks typically wear off quickly, so start taking pain medication as soon as you start feeling soreness near your surgical site. Weight bearing and Range of Motion. Do not bear any weight through your operative extremity immediately after surgery. If you had upper extremity surgery, do not lift anything with that arm. If you are in a knee brace, keep it locked in place until your follow-up. We will discuss your weight bearing, range of motion, and lifting restrictions in detail at your first post-operative appointment. Continuous Passive Motion (CPM) Machine If you were prescribed a CPM machine, it will start after your first post- operative appointment, at which time we will give you instructions on the range of motion settings and duration of treatment Physical therapy You will be given a prescription for physical therapy or occupational therapy at your first post-operative appointment. Typically, patients start therapy within 1 week of surgery Wound care and showering We will inspect your wound at your first post-operative visit, and may do a dressing change at that time. Most patients will be in a water-proof dressing that is removed 14 days after surgery. It is normal to see some dried blood on the dressing. Do not remove your dressing, paper strips or sutures yourself unless you are given permission. Showering is allowed the day after surgery. Do not scrub or remove any dressings. The wound should not be submerged underwater (i.e. in a bathtub or pool) until 4 weeks after surgery MODESTA stockings If you were given white stockings, these are to be worn at all times except to shower (on both legs) for the first 2 weeks after surgery. Driving You may not drive while taking narcotic pain medication or while in a cast, splint, sling or brace. You, the patient, need to make the final determination about when you are safe to drive, however, the earliest you may consider driving after surgery is below: Hand/Wrist/Elbow Surgery: 3 days Shoulder Surgery: 2 weeks Hip,/Knee/Ankle Surgery: 4 weeks Fracture repair: 6 weeks Return to Work Your return to work depends on what surgery was done and what type of work you do. Please bring any paperwork your employer needs completed to your first post-operative visit. Also, bring a description of your job duties, as this helps us to understand what risks you may face at work. Travel Avoid long distance travel (greater than 1 hour) in airplanes and cars for the first 6 weeks after surgery. If you must travel, you need to have a Doppler ultrasound done before you travel to rule out a blood clot in your legs. Follow-up You should have a follow-up appointment already scheduled 1-2 days after surgery. If not, please contact our office to make this appointment before you leave the hospital. When to call the office It is normal to have swelling and bruising in the limb that was operated on. This will improve with time. It is also normal to have fevers for the first 2 days after surgery. Reasons you should call your doctor include: Uncontrolled pain; Nausea, vomiting, or constipation that does not improve with medication; Fevers over 101.5, chills, sweats; Drainage or bleeding from the wound; Foul odor; Spreading areas of redness; Any other concerns Pending Studies at Discharge: No Stand-Alone Forms: My [facility] Medications and DC Order Prescriptions: New acetaminophen [Tylenol Extra Strength] 500 mg Tablet 1,000 mg PO Q8H 30 Days Qty: 180 0RF aspirin 81 mg Tablet,Delayed Release (Dr/Ec) 81 mg PO BID 30 Days Qty: 60 0RF oxycodone 5 mg Tablet 5 - 10 mg PO Q4H MDD Ongoing Tx PRN (Reason: Post op pain control) Qty: 28 0RF diclofenac sodium 75 mg tablet,delayed release (DR/EC) 75 mg PO BID 30 Days Qty: 60 1RF Continued baclofen 10 mg tablet 10 mg PO TID PRN (Reason: Muscle Spasm) metoprolol tartrate 50 mg tablet 50 mg PO BID rosuvastatin [Crestor] 20 mg tablet 20 mg PO QAM gabapentin 600 mg tablet 600 mg PO QID nitroglycerin 0.4 mg tablet, sublingual 0.4 mg SL Q5M PRN (Reason: Chest Pain) clobetasol 0.05 % cream 1 appln TOP DAILY PRN (Reason: Skin Irritation) sildenafil 100 mg tablet 100 mg PO DAILY PRN (Reason: Sexual Activity) metformin 500 mg Tablet 500 mg PO BID hydrochlorothiazide 50 mg Tablet 50 mg PO WK Patient Comments: takes tuesday am cyanocobalamin (vitamin B-12) 1,000 mcg Tablet 1,000 mcg PO QAM amlodipine 5 mg Tablet 5 mg PO QAM famotidine 20 mg Tablet 20 mg PO QPM hydrochlorothiazide 25 mg Tablet 25 mg PO [id number] Patient Comments: takes in the am losartan 100 mg Tablet 100 mg PO QAM duloxetine 30 mg Capsule,Delayed Release(Dr/Ec) 30 mg PO QAM Discontinued aspirin 81 mg tablet,chewable 81 mg PO QAM Krames/Other Patient Handouts: High Blood Sugar (Hyperglycemia), Hypoglycemia (Low Blood Sugar), Managing Type 2 Diabetes, Diabetes: Meal Planning, Special Foot Care for Diabetes Admission Data Admit Date/Time: 01/13/23 08:53 Attending Provider: Demarcus Worthy Admit Provider: Demarcus Worthy Primary Care Provider: Chandrika Lind Other Providers: Elyse Gilman ; Denilson Ruiz ; [facility] [employer] [facility] ; [place]
[2023-01-14] MEDS ORDERED: OLANZapine 10 MG/2.1 ML SDV IM STA (19:26)
[2023-01-14] MEDS ORDERED: NSS + 20MEQ KCL 20 MEQ/1,000 ML BAG IV ONE (19:35)
[2023-01-14] MEDS: CeleBREX 200 MG CAP PO SCH (20:41)
[2023-01-14] MEDS: FAMOTIDINE 20 MG TAB PO SCH (20:43)
[2023-01-14] MEDS: SENNA 8.6 MG TAB PO SCH (20:43)
--- NOTE | 2023-01-14 23:21 | Communication Note ---
Date of Service: January 14, 2023 Notified by RN of increased patient agitation, confusion. History of heavy alcohol intake as per phone discussion with patient contact (Mr. Jaime Ervin). AP Alcohol withdrawal Recommend PCU transfer DT precautions WILLOW S, IV Ativan as needed Consider Librium course in place of patient's home gabapentin if symptoms not amenable to initial intervention. Dr. Valenzuela of Orthopedics updated of developments over the phone and agreeable to unit transfer.
[2023-01-14] MEDS ORDERED: LORazepam 2 MG/1 ML VIAL IV PRN (23:22)
[2023-01-14] MEDS ORDERED: Ativan IV Alcohol Withdrawal--Active Protocol IV PRN (23:22)
[2023-01-14] MEDS ORDERED: THIAMINE HCL 100 MG in SYRINGE 9 ML IV ONE (23:30)
[2023-01-15] MEDS: OLANZapine 10 MG/2.1 ML SDV IM PRN ×2 (00:30→15:55)
[2023-01-15] MEDS ORDERED: LORazepam 2 MG/1 ML VIAL IM STA (00:37)
[2023-01-15] MEDS: LORazepam 2 MG/1 ML VIAL IV PRN ×5 (00:44→15:53)
--- NOTE | 2023-01-15 08:17 | Hospitalist Progress Note ---
Date of Service January 15, 2023 Assessment & Plan (1) Head injury: (2) Fall: (3) S/P total knee arthroplasty: (4) HTN (hypertension): Plan Pt is a 77yoM with PMhx significant for HTN, DMII, HLD, chronic pain, ED admitted for L TKA done on 01/13/2023. The hospitalist service was consulted after a fall with a possible head injury. POD#2 Altered Mental Status Service notified overnight that pt was more confused and not oriented. Pt reportedly heavy drinker. On AWSS protocol with Ativan and gabapentin. CT head on 01/13- with no acute change or fracture STAT MRI brain ordered today- will follow Fall/Head injury Per pt, he was not wearing socks when he fell. Slipped while trying to get out of bed. States that he hit his head on the nearby BP machine. Denied LOC, headache or pain in the area of the head that was hit. No visible bruising on exam. Neuro exam with no gross deficits except in LLE that was recently operated on. Head CT ordered- no acute changes. Pt remained stable but currently with AMS in setting of chronic alcohol use. MRI ordered as noted above. TKA Pt is POD #2 s/p L TKA, following with ortho States that he did not hurt his left leg during the fall, notes it "gives out" all the time. Pain control, PT/OT Management per orthopedics. HTN, DMII, HLD- continue home medications CODE STATUS: Full code Diet: DMII DVT Prophylaxis: TEDS and aspirin per ortho. Dispo: d/c per primary service Thank you for this consultation. We will follow the patient with you during their hospital stay. You can reach a member of the [facility] Hospitalist Team 13/12 via the hospitalist role on tiger text. Admission and Anticipated Discharge Date Admission Date: January 13, 2023 Subjective Pt seen this AM. Arousable but falls back asleep. Appears confused. Review of Systems Review of Systems: Unobtainable due to cognitive status Physical Exam Physical Exam: General: Arousable but easily falls back asleep Skin: No noted rashes or bruises Psych: could not be determined Neuro: confused HEENT: NC/AT CV: RRR, Normal s1, s2. Resp: no increased effort of breathing. Abdomen: Soft, nontender, nondistended Results & Data Results & Data Vital Signs (Past 12 Hours) Vital Signs Temp Pulse Pulse Pulse Resp BP Pulse Ox 01/15/23 07:54 37.7 C H 71 19 155/72 H 96 01/15/23 06:40 37.3 C 65 16 162/66 H 93 01/15/23 01:37 71 01/15/23 02:53 36.8 C 74 16 138/66 94 01/15/23 02:00 37.1 C 69 20 127/61 92 01/15/23 01:32 37.5 C 73 24 121/53 L 92 01/14/23 21:15 01/14/23 23:57 36.9 C 65 16 150/63 H 96 01/14/23 20:35 37.2 C 78 18 145/59 H 95 O2 Del Method O2 Flow Rate 01/15/23 07:54 Room Air 01/15/23 06:40 Nasal Cannula 5 01/15/23 01:37 01/15/23 02:53 Room Air 01/15/23 02:00 Nasal Cannula 5 01/15/23 01:32 Nasal Cannula 5 01/14/23 21:15 Room Air 01/14/23 23:57 Room Air 01/14/23 20:35 Room Air
[2023-01-15 09:02] LABS: Basophils # (auto) 0.03 K/uL (0.00-0.20); Basophils % (auto) 0.2 %; Eosinophils # (auto) 0.06 K/uL (0.00-0.50); Eosinophils % (auto) 0.5 %; Hematocrit (blood only) 37.2 % (42.0-52.0); Hemoglobin 12.6 g/dl (14.0-18.0); Immature Granulocytes # (auto) 0.05 K/uL (0.01-0.20); Immature Granulocytes % (auto) 0.4 %; Lymphocytes # (auto) 0.96 K/uL (1.20-3.40); Mean Corpuscular Hemoglobin 29.9 pg (25.0-34.0); Mean Corpuscular Hgb Conc 33.9 g/dL (32.0-36.0); Mean Corpuscular Volume 88.2 fL (80.0-100.0); Mean Platelet Volume 10.6 fL (9.4-12.4); Monocytes % (auto) 10.8 %; Neutrophils # (auto) 9.66 K/uL (1.40-6.50); Neutrophils % (auto) 80.1 %; Platelet Count 193 K/uL (130-400); RDW Coefficient of Variation 14.2 % (11.5-14.5); RDW Standard Deviation 45.2 fL (36.4-46.3); Red Blood Count 4.22 M/uL (4.70-6.10); White Blood Count 12.06 K/ul (4.8-10.8)
[2023-01-15] MEDS: DOCUSATE SODIUM 100 MG CAP PO SCH ×2 (09:04→20:20)
[2023-01-15] MEDS: amLODIPine BESYLATE 5 MG TAB PO SCH (09:04)
[2023-01-15] MEDS: CYANOCOBALAMIN (B-12) 500 MCG TABLET PO SCH (09:04)
[2023-01-15] MEDS: FOLIC ACID 1 MG TAB PO SCH (09:04)
[2023-01-15] MEDS: CeleBREX 200 MG CAP PO SCH ×2 (09:04→20:20)
[2023-01-15] MEDS: GABAPENTIN 600 MG TAB PO SCH ×4 (09:04→20:20)
[2023-01-15] MEDS: ASPIRIN 81 MG ECTAB PO SCH (09:04)
[2023-01-15] MEDS: DULoxetine HCL 30 MG CAP PO SCH (09:04)
[2023-01-15] MEDS: THIAMINE HCL 100 MG TAB PO SCH (09:05)
[2023-01-15] MEDS: LOSARTAN POTASSIUM 50 MG TAB PO SCH (09:05)
[2023-01-15] MEDS: MULTIVITAMIN TAB PO SCH (09:05)
[2023-01-15] MEDS: ROSUVASTATIN CALCIUM 20 MG TAB PO SCH (09:05)
[2023-01-15 09:21] LABS: BUN Creatinine Ratio 15.2 (10-20); Calcium 9.1 mg/dl (8.6-10.3); Creatinine Clr Calc Pharmacy 92.1 ml/min; Est GFR (African American) 108.8 ml/min; Est GFR (Non-African American) 93.9 ml/min; Potassium 3.6 mmol/L (3.5-5.1)
[2023-01-15] MEDS: ACETAMINOPHEN 500 MG TAB PO SCH ×3 (09:25→22:10)
[2023-01-15] MEDS: METOPROLOL TARTRATE 50 MG TAB PO SCH ×2 (09:25→20:21)
--- NOTE | 2023-01-15 10:16 | XRay Report ---
XR chest 1V portable CLINICAL HISTORY: for MRI clearance COMPARISON STUDY: Chest CT July 16, 2017. FINDINGS: Lung volumes are normal. Lungs are clear. There is no pneumothorax or pleural effusion. Car diac size is stable. Mediastinal contours are normal. There is no evidence for pulmonary edema. No un expected radiopaque foreign bodies within the chest are present. There is no pacemaker. Scoliosis norm gomez is partially imaged. IMPRESSION: No contraindication to MRI within the chest. ACT 112: Negative or not required by law. Electronically signed by: Hossein Mathur M.D. 01/15/2023 10:15 AM
--- NOTE | 2023-01-15 10:37 | Orthopedic Progress Note ---
Date of Service January 15, 2023 Assessment & Plan (1) S/P total knee arthroplasty: Plan: Last evening patient began experiencing alcohol withdraw symptoms and was transitioned from Med/Surg to Telemetry. He became combative and is currently in restraints. He is receiving IV Ativan. Patient was switched from oral aspirin to a heparin drip for DVT prophylaxis. Patient will need maximal assistance when he is able to get up and out of bed. He will also need physical therapy once his cognitive status has improved. PT/OT Maximum assistance Will cont to follow Ice with easy wrap Immobilizer use x48 hours Weightbearing as tolerated with walker assistance Pain control with p.o. medication DVT prophylaxis with MODESTA stockings and Heparin He will need to be cleared by medicine service before discharge. Follow-up at [facility] orthopedics as previously scheduled. Keep Silverlon dressing until follow-up. With questions contact our clinic at [phone] Admission and Anticipated Discharge Date Admission Date: January 15, 2023 Subjective This 77-year-old male seen today to status post left total knee arthroplasty. Patient began to experiencing alcohol withdrawal last evening was transition from MedSurg to telemetry due to DTs. He is very confused currently. Patient is currently in restraints has not able to take any oral medication. We transitioned him from baby aspirin twice daily to heparin heparin drip. Yesterday he discussed placement in a rehab facility upon discharge however he will need to be through his withdrawal symptoms before he can be transition to [facility]. Review of Systems Review of Systems: Unobtainable due to reduced consciousness Physical Exam Physical Exam: Left knee: Outer dressing was removed. Silverlon is clean dry and intact and left in place. Knee range of motion is from 0 degrees of extension to 85 degrees of flexion actively. Patient is able to actively perform active straight leg raise test and actively dorsi and plantarflex his foot. He does have some mild edema about the knee but no erythema, ecchymosis or significant effusion. His quad strength is 3+ out of 5. He is neurovascularly intact in the left lower extremity. A pillow was placed under the patient's left heel to keep him at 0 degrees of extension and for prevention of flexion contracture. Results & Data Vital Signs (Past 12 Hours) Vital Signs Temp Pulse Pulse Pulse Resp BP Pulse Ox 01/15/23 07:54 37.7 C H 71 19 155/72 H 96 08/26/23 06:40 37.3 C 65 16 162/66 H 93 01/15/23 01:37 71 01/15/23 02:53 36.8 C 74 16 138/66 94 01/15/23 02:00 37.1 C 69 20 127/61 92 01/15/23 01:32 37.5 C 73 24 121/53 L 92 01/14/23 23:57 36.9 C 65 16 150/63 H 96 O2 Del Method O2 Flow Rate 01/15/23 07:54 Room Air 01/15/23 06:40 Nasal Cannula 5 01/15/23 01:37 01/15/23 02:53 Room Air 01/15/23 02:00 Nasal Cannula 5 01/15/23 01:32 Nasal Cannula 5 01/14/23 23:57 Room Air Diagnostic Findings Laboratory Results WBC 12.06 K/ul (4.8-10.8) H 01/15/23 08:40 RBC 4.22 M/uL (4.70-6.10) L 01/15/23 08:40 Hgb 12.6 g/dl (14.0-18.0) L 01/15/23 08:40 Hct 37.2 % (42.0-52.0) L 01/15/23 08:40 MCV 88.2 fL (80.0-100.0) 01/15/23 08:40 MCH 29.9 pg (25.0-34.0) 01/15/23 08:40 MCHC 33.9 g/dL (32.0-36.0) 01/15/23 08:40 RDW Std Deviation 45.2 fL (36.4-46.3) 01/15/23 08:40 RDW Coeff of Art 14.2 % (11.5-14.5) 01/15/23 08:40 Plt Count 193 K/uL (130-400) 01/15/23 08:40 MPV 10.6 fL (9.4-12.4) 01/15/23 08:40 Immature Gran % (Auto) 0.4 % 01/15/23 08:40 Neut % (Auto) 80.1 % 01/15/23 08:40 Lymph % (Auto) 8.0 % 01/15/23 08:40 [place] % (Auto) 10.8 % 01/15/23 08:40 Eos % (Auto) 0.5 % 01/15/23 08:40 Baso % (Auto) 0.2 % 01/15/23 08:40 Neut # (Auto) 9.66 K/uL (1.40-6.50) H 01/15/23 08:40 Lymph # (Auto) 0.96 K/uL (1.20-3.40) L 01/15/23 08:40 [place] # (Auto) 1.30 K/uL (0.11-0.59) H 01/15/23 08:40 Eos # (Auto) 0.06 K/uL (0.00-0.50) 01/15/23 08:40 Baso # (Auto) 0.03 K/uL (0.00-0.20) 01/15/23 08:40 Immature Gran # (Auto) 0.05 K/uL (0.01-0.20) 01/15/23 08:40 Sodium 141 mmol/L (136-145) 01/15/23 08:40 Potassium 3.6 mmol/L (3.5-5.1) 01/15/23 08:40 Chloride 102 mmol/L (98-107) 01/15/23 08:40 Carbon Dioxide 33 mmol/L (21-32) H 01/15/23 08:40 Anion Gap 6 (3-11) 01/15/23 08:40 BUN 10 mg/dl (6-23) 01/15/23 08:40 Creatinine 0.66 mg/dl (0.6-1.4) 01/15/23 08:40 Est Cr Clr Drug Dosing 92.1 ml/min 01/15/23 08:40 Est GFR ( Amer) 108.8 ml/min 01/15/23 08:40 Est GFR (Non-Af Amer) 93.9 ml/min 01/15/23 08:40 BUN/Creatinine Ratio 15.2 (10-20) 01/15/23 08:40 Glucose 92 mg/dl (70-99(Fasting)) 01/15/23 08:40 POC Glucose 141 mg/dl (70-99) H 01/14/23 20:31 Estimat Average Glucose 120 mg/dl 01/14/23 08:31 Hemoglobin A1c 5.8 % (4.5-5.6) H 01/14/23 08:31 Calcium 9.1 mg/dl (8.6-10.3) 01/15/23 08:40 Blood Type B Positive 01/13/23 06:02 Antibody Screen NEGATIVE 01/13/23 06:02 Impressions Knee X-Ray 01/13/23 08:53 XR knee LT 1 or 2V routine CLINICAL HISTORY: Surgical Post Op COMPARISON: Left knee radiographs December 28, 2022. FINDINGS: Left knee arthroplasty with polyethylene tibial component is noted. No periprosthetic fracture is noted. There are no unexpected radiopaque foreign bodies. IMPRESSION: Expected findings following left knee arthroplasty. ACT 112: Negative or not required by law. Electronically signed by: Hossein Mathur M.D. 01/13/2023 9:31 AM Pelvis X-Ray 01/13/23 16:02 XR pelvis 1-2V routine HISTORY: 77 years-old Male patient fell acute pelvic pain status post fall COMPARISON: CT 07/16/2017 TECHNIQUE: AP view the pelvis FINDINGS: Partially imaged hardware of the lumbosacral spine with iliac bones. Moderate left and severe right hip osteoarthritis. No acute fracture, dislocation or suspicious bone lesion identified. IMPRESSION: 1. No acute fracture or dislocation. 2. Severe right hip osteoarthritis. ACT 112: Negative or not required by law. The above report was generated using voice recognition software. It may contain grammatical, syntax or spelling errors. Electronically signed by: Antonio Robbins M.D. 01/13/2023 5:[address] 01/13/23 17:22 CT head/brain wo con CLINICAL HISTORY: 77 years-old Male with s/p fall and hit head post op. Acute head injury status post fall TECHNIQUE: Multiple axial CT images of the head were obtained without contrast. A dose lowering technique was utilized adhering to the principles of ALARA. CT DOSE: 625.80 mGy.cm COMPARISON: None. FINDINGS: No acute intracranial hemorrhage, midline shift, intracranial mass, hydrocephalus, territorial ischemia or abnormal extra-axial collection. Involutional changes with chronic microvascular ischemic disease. Cerebrovascular calcifications. The calvarium is intact. Mild mucosal thickening of the ethmoid air cells. The mastoid air cells are clear. IMPRESSION: No acute intracranial abnormality or calvarial fracture. ACT 112: Negative or not required by law. The above report was generated using voice recognition software. It may contain grammatical, syntax or spelling errors. Electronically signed by: Antonio Robbins M.D. 01/13/2023 6:56 PM Chest X-Ray 01/15/23 09:31 XR chest 1V portable CLINICAL HISTORY: for MRI clearance COMPARISON STUDY: Chest CT July 16, 2017. FINDINGS: Lung volumes are normal. Lungs are clear. There is no pneumothorax or pleural effusion. Cardiac size is stable. Mediastinal contours are normal. There is no evidence for pulmonary edema. No unexpected radiopaque foreign bodies within the chest are present. There is no pacemaker. Scoliosis hardware is partially imaged. IMPRESSION: No contraindication to MRI within the chest. ACT 112: Negative or not required by law. Electronically signed by: Hossein Mathur M.D. 01/15/2023 10:15 AM
[2023-01-15] MEDS ORDERED: HEPARIN SODIUM/DEXTROSE 25,000 UNITS/500 ML BAG IV SCH (11:00)
--- NOTE | 2023-01-15 11:54 | XRay Report ---
KUB CLINICAL HISTORY: for MRI clearance COMPARISON STUDY: CT of the abdomen and pelvis July 16, 2017. KUB July 17, 2017. FINDINGS: Scoliosis hardware is incidentally noted. No unexpected radiopaque foreign bodies within th e abdomen or pelvis are present. There is no evidence for a bowel obstruction. IMPRESSION: No contraindication to MRI within the abdomen or pelvis. ACT 112: Negative or not required by law. Electronically signed by: Hossein Mathur M.D. 01/15/2023 11:53 AM
[2023-01-15] MEDS: HEPARIN SOD 5,000 UNIT/0.5 ML VIAL SQ SCH ×2 (13:06→20:24)
[2023-01-15] MEDS: Heparin IV Adult Wt-Based Standard *NO* Bolus Protocol IV SCH ×2 (13:24→13:25)
[2023-01-15] MEDS ORDERED: ACETAMINOPHEN 1,000 MG/100 ML VIAL IV PRN (15:25)
[2023-01-15] MEDS ORDERED: PIPERACILLIN/TAZOBACTAM 4.5 GM in DEXTROSE 5% 100 ML IV ONE (16:00)
[2023-01-15] MEDS ORDERED: GADOBUTROL 10ML VIAL IV ONE (18:12)
--- NOTE | 2023-01-15 18:45 | Magnetic Resonance Report ---
MRI OF THE BRAIN WITHOUT AND WITH IV CONTRAST CLINICAL HISTORY: Altered mental status. COMPARISON STUDY: Head CT January 13, 2023. TECHNIQUE: Utilizing a 1.5 Jyoti magnet and dedicated coil, multiplanar, multiecho imaging of the br ain was performed pre and postcontrast administration. IV administration of 8 mL of Gadavist contras t was uneventful. FINDINGS: There are no foci of restricted diffusion to suggest acute infarct. No acute intracranial h emorrhage, midline shift or mass effect is present. Ventricular system is unremarkable. Basal cistern s are patent. Flow-voids for the major intracranial vessels are present. There is a 7 mm round flow v oid adjacent to the anterior cerebral arteries on axial T2-weighted sequence image 13 of 25. Otherwis e, flow-voids are unremarkable. There is no intracranial mass or pathologic enhancement. Mild white m atter T2 hyperintense foci suggest minimal small vessel disease. IMPRESSION: 1. No acute intracranial findings. 2. Suspected intracranial aneurysm, measuring approximately 7 mm, possibly arising from the anterior communicating artery. Nonemergent CTA of the head is recommended for further evaluation. 3. No intracranial mass or pathologic enhancement. ACT 112: Positive. There are findings on this exam that require communication between the performing entity and the patient following Patient Test Result Information Act ([place] Act 112) guidelines. Electronically signed by: Hossein Mathur M.D. 01/15/2023 6:43 PM
[2023-01-15] MEDS: PIPERACILLIN/TAZOBACTAM 4.5 GM in DEXTROSE 5% 100 ML IV SCH (20:14)
[2023-01-15] MEDS: FAMOTIDINE 20 MG TAB PO SCH (20:20)
[2023-01-15] MEDS: SENNA 8.6 MG TAB PO SCH (20:21)
[2023-01-16] MEDS: LORazepam 2 MG/1 ML VIAL IV PRN ×5 (04:54→19:34)
[2023-01-16] MEDS: PIPERACILLIN/TAZOBACTAM 4.5 GM in DEXTROSE 5% 100 ML IV SCH ×3 (06:22→21:45)
[2023-01-16] MEDS: CeleBREX 200 MG CAP PO SCH (08:46)
[2023-01-16] MEDS: GABAPENTIN 600 MG TAB PO SCH ×3 (08:47→17:28)
[2023-01-16] MEDS: ROSUVASTATIN CALCIUM 20 MG TAB PO SCH (08:47)
[2023-01-16] MEDS: FOLIC ACID 1 MG TAB PO SCH (08:47)
[2023-01-16] MEDS: DULoxetine HCL 30 MG CAP PO SCH (08:48)
[2023-01-16] MEDS: THIAMINE HCL 100 MG TAB PO SCH (08:48)
[2023-01-16] MEDS: amLODIPine BESYLATE 5 MG TAB PO SCH (08:48)
[2023-01-16] MEDS: MULTIVITAMIN TAB PO SCH (08:48)
[2023-01-16] MEDS: LOSARTAN POTASSIUM 50 MG TAB PO SCH (08:49)
[2023-01-16] MEDS: METOPROLOL TARTRATE 50 MG TAB PO SCH (08:49)
--- NOTE | 2023-01-16 08:53 | Orthopedic Progress Note ---
Date of Service January 16, 2023 Assessment & Plan (1) S/P total knee arthroplasty: Plan: PT/OT Maximum assistance Will cont to follow Ice with easy wrap Immobilizer use x48 hours Weightbearing as tolerated with walker assistance Pain control with p.o. medication DVT prophylaxis with MODESTA stockings and Heparin SQ He will need to be cleared by medicine service before discharge. Case management for placement With questions contact our clinic at [phone] Admission and Anticipated Discharge Date Admission Date: January 15, 2023 Subjective This 77-year-old male seen today to status post left total knee arthroplasty. Patient began to experiencing alcohol withdrawal 2 nights ago and was transition from MedSurg to telemetry due to DTs. He is very confused currently. Patient is currently in restraints has not able to take any oral medication. We transitioned him from baby aspirin twice daily to heparin SQ fro DVT prophylaxis. Discharge to rehab facility is on hold until patient is medically stable. Review of Systems Review of Systems: Unobtainable due to reduced consciousness Physical Exam Physical Exam: Left knee: Silverlon is clean dry and intact and left in place. He does have some mild edema about the knee but no erythema, ecchymosis or significant effusion. Able to move digits in left LE. He is neurovascularly intact in the left lower extremity. A pillow was placed under the patient's left heel to keep him at 0 degrees of extension and for prevention of flexion contracture. Results & Data Vital Signs (Past 12 Hours) Vital Signs Temp Pulse Pulse Pulse Resp BP Pulse Ox 01/16/23 07:42 37.3 C 91 H 18 154/73 H 98 01/16/23 06:28 36.5 C 88 22 154/67 H 96 01/16/23 04:00 36.6 C 87 20 157/74 H 94 01/15/23 21:57 84 01/15/23 22:58 36.7 C 83 18 166/71 H 99 O2 Del Method O2 Flow Rate 01/16/23 07:42 Nasal Cannula 4 01/16/23 06:28 Nasal Cannula 01/16/23 04:00 Nasal Cannula 01/15/23 21:57 01/15/23 22:58 Nasal Cannula 3 Diagnostic Findings Laboratory Results WBC 12.06 K/ul (4.8-10.8) H 01/15/23 08:40 RBC 4.22 M/uL (4.70-6.10) L 01/15/23 08:40 Hgb 12.6 g/dl (14.0-18.0) L 01/15/23 08:40 Hct 37.2 % (42.0-52.0) L 01/15/23 08:40 MCV 88.2 fL (80.0-100.0) 01/15/23 08:40 MCH 29.9 pg (25.0-34.0) 01/15/23 08:40 MCHC 33.9 g/dL (32.0-36.0) 01/15/23 08:40 RDW Std Deviation 45.2 fL (36.4-46.3) 01/15/23 08:40 RDW Coeff of Art 14.2 % (11.5-14.5) 01/15/23 08:40 Plt Count 193 K/uL (130-400) 01/15/23 08:40 MPV 10.6 fL (9.4-12.4) 01/15/23 08:40 Immature Gran % (Auto) 0.4 % 01/15/23 08:40 Neut % (Auto) 80.1 % 01/15/23 08:40 Lymph % (Auto) 8.0 % 01/15/23 08:40 [place] % (Auto) 10.8 % 01/15/23 08:40 Eos % (Auto) 0.5 % 01/15/23 08:40 Baso % (Auto) 0.2 % 01/15/23 08:40 Neut # (Auto) 9.66 K/uL (1.40-6.50) H 01/15/23 08:40 Lymph # (Auto) 0.96 K/uL (1.20-3.40) L 01/15/23 08:40 [place] # (Auto) 1.30 K/uL (0.11-0.59) H 01/15/23 08:40 Eos # (Auto) 0.06 K/uL (0.00-0.50) 01/15/23 08:40 Baso # (Auto) 0.03 K/uL (0.00-0.20) 01/15/23 08:40 Immature Gran # (Auto) 0.05 K/uL (0.01-0.20) 01/15/23 08:40 Sodium 141 mmol/L (136-145) 01/15/23 08:40 Potassium 3.6 mmol/L (3.5-5.1) 01/15/23 08:40 Chloride 102 mmol/L (98-107) 01/15/23 08:40 Carbon Dioxide 33 mmol/L (21-32) H 01/15/23 08:40 Anion Gap 6 (3-11) 01/15/23 08:40 BUN 10 mg/dl (6-23) 01/15/23 08:40 Creatinine 0.66 mg/dl (0.6-1.4) 01/15/23 08:40 Est Cr Clr Drug Dosing 92.1 ml/min 01/15/23 08:40 Est GFR ( Amer) 108.8 ml/min 01/15/23 08:40 Est GFR (Non-Af Amer) 93.9 ml/min 01/15/23 08:40 BUN/Creatinine Ratio 15.2 (10-20) 01/15/23 08:40 Glucose 92 mg/dl (70-99(Fasting)) 01/15/23 08:40 POC Glucose 113 mg/dl (70-99) H 01/16/23 07:24 Estimat Average Glucose 120 mg/dl 01/14/23 08:31 Hemoglobin A1c 5.8 % (4.5-5.6) H 01/14/23 08:31 Calcium 9.1 mg/dl (8.6-10.3) 01/15/23 08:40 Blood Type B Positive 01/13/23 06:02 Antibody Screen NEGATIVE 01/13/23 06:02 Impressions Knee X-Ray 01/13/23 08:53 XR knee LT 1 or 2V routine CLINICAL HISTORY: Surgical Post Op COMPARISON: Left knee radiographs December 28, 2022. FINDINGS: Left knee arthroplasty with polyethylene tibial component is noted. No periprosthetic fracture is noted. There are no unexpected radiopaque foreign bodies. IMPRESSION: Expected findings following left knee arthroplasty. ACT 112: Negative or not required by law. Electronically signed by: Hossein Mathur M.D. 01/13/2023 9:31 AM Pelvis X-Ray 01/13/23 16:02 XR pelvis 1-2V routine HISTORY: 77 years-old Male patient fell acute pelvic pain status post fall COMPARISON: CT 07/16/2017 TECHNIQUE: AP view the pelvis FINDINGS: Partially imaged hardware of the lumbosacral spine with iliac bones. Moderate left and severe right hip osteoarthritis. No acute fracture, dislocation or suspicious bone lesion identified. IMPRESSION: 1. No acute fracture or dislocation. 2. Severe right hip osteoarthritis. ACT 112: Negative or not required by law. The above report was generated using voice recognition software. It may contain grammatical, syntax or spelling errors. Electronically signed by: Antonio Robbins M.D. 01/13/2023 5:[address] 01/13/23 17:22 CT head/brain wo con CLINICAL HISTORY: 77 years-old Male with s/p fall and hit head post op. Acute head injury status post fall TECHNIQUE: Multiple axial CT images of the head were obtained without contrast. A dose lowering technique was utilized adhering to the principles of ALARA. CT DOSE: 625.80 mGy.cm COMPARISON: None. FINDINGS: No acute intracranial hemorrhage, midline shift, intracranial mass, hydrocephalus, territorial ischemia or abnormal extra-axial collection. Involutional changes with chronic microvascular ischemic disease. Cerebrovas cular calcifications. The calvarium is intact. Mild mucosal thickening of the ethmoid air cells. The mastoid air cells are clear. IMPRESSION: No acute intracranial abnormality or calvarial fracture. ACT 112: Negative or not required by law. The above report was generated using voice recognition software. It may contain grammatical, syntax or spelling errors. Electronically signed by: Antonio Robbins M.D. 01/13/2023 6:56 PM Brain MRI 01/15/23 08:11 MRI OF THE BRAIN WITHOUT AND WITH IV CONTRAST CLINICAL HISTORY: Altered mental status. COMPARISON STUDY: Head CT January 13, 2023. TECHNIQUE: Utilizing a 1.5 Jyoti magnet and dedicated coil, multiplanar, multiecho imaging of the brain was performed pre and postcontrast administration. IV administration of 8 mL of Gadavist contrast was uneventful. FINDINGS: There are no foci of restricted diffusion to suggest acute infarct. No acute intracranial hemorrhage, midline shift or mass effect is present. Ventricular system is unremarkable. Basal cisterns are patent. Flow-voids for the major intracranial vessels are present. There is a 7 mm round flow void adjacent to the anterior cerebral arteries on axial T2-weighted sequence image 13 of 25. Otherwise, flow-voids are unremarkable. There is no intracranial mass or pathologic enhancement. Mild white matter T2 hyperintense foci suggest minimal small vessel disease. IMPRESSION: 1. No acute intracranial findings. 2. Suspected intracranial aneurysm, measuring approximately 7 mm, possibly arising from the anterior communicating artery. Nonemergent CTA of the head is recommended for further evaluation. 3. No intracranial mass or pathologic enhancement. ACT 112: Positive. There are findings on this exam that require communication between the performing entity and the patient following Patient Test Result Information Act ([place] Act 112) guidelines. Electronically signed by: Hossein Mathur M.D. 01/15/2023 6:43 PM Chest X-Ray 01/15/23 09:31 XR chest 1V portable CLINICAL HISTORY: for MRI clearance COMPARISON STUDY: Chest CT July 16, 2017. FINDINGS: Lung volumes are normal. Lungs are clear. There is no pneumothorax or pleural effusion. Cardiac size is stable. Mediastinal contours are normal. There is no evidence for pulmonary edema. No unexpected radiopaque foreign bodies within the chest are present. There is no pacemaker. Scoliosis hardware is partially imaged. IMPRESSION: No contraindication to MRI within the chest. ACT 112: Negative or not required by law. Electronically signed by: Hossein Mathur M.D. 01/15/2023 10:15 AM KUB X-Ray 01/15/23 09:31 KUB CLINICAL HISTORY: for MRI clearance COMPARISON STUDY: CT of the abdomen and pelvis July 16, 2017. KUB July 17, 2017. FINDINGS: Scoliosis hardware is incidentally noted. No unexpected radiopaque foreign bodies within the abdomen or pelvis are present. There is no evidence for a bowel obstruction. IMPRESSION: No contraindication to MRI within the abdomen or pelvis. ACT 112: Negative or not required by law. Electronically signed by: Hossein Mathur M.D. 01/15/2023 11:53 AM
[2023-01-16] MEDS: ACETAMINOPHEN 500 MG TAB PO SCH ×2 (08:54→15:13)
[2023-01-16] MEDS: CYANOCOBALAMIN (B-12) 500 MCG TABLET PO SCH (08:59)
[2023-01-16] MEDS: DOCUSATE SODIUM 100 MG CAP PO SCH (08:59)
[2023-01-16] MEDS: HEPARIN SOD 5,000 UNIT/0.5 ML VIAL SQ SCH ×2 (09:00→20:23)
[2023-01-16] MEDS ORDERED: IOVERSOL 350 MG 125mL Prefilled Syringe IV ONE (14:24)
--- NOTE | 2023-01-16 14:36 | CT Scan Report ---
HEAD CTA HISTORY: followup brain MRI, possible aneurysm, altered mental status TECHNIQUE: Multiaxial CT images of the head were performed both before and after the intravenous admi nistration of contrast to evaluate the major cerebral vessels. 3D/MIP images were also obtained. Sag ittal and coronal reformats were reviewed. A dose lowering technique was utilized [facility] COMPARISON: Brain MRI 01/15/2023. FINDINGS: Motion artifact. The paranasal sinuses and mastoid air cells are clear. There is no mass, h ematoma, midline shift, acute infarct. Mild atrophy and microvascular ischemic changes are again note d. Mild to moderate calcified plaque within the bilateral carotid siphons. There is mild multifocal s tenosis within the left carotid siphon due to the calcified plaque. The distal vertebral arteries and basilar artery show no significant stenosis or occlusion. The bilateral MCAs and structural biologist show no signif icant stenosis, occlusion, or aneurysm. The bilateral ACAs are widely patent. 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 IMPRESSION: 1. No acute infarct or intracranial hemorrhage. 2. No significant stenosis or occlusion within the [place]. 3. 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 ACT 112: Negative or not required by law. Electronically signed by: Pavan Parekh M.D. 01/16/2023 2:34 PM
--- NOTE | 2023-01-16 19:36 | Hospitalist Progress Note ---
Date of Service January 16, 2023 Assessment & Plan (1) Head injury: (2) Fall: (3) S/P total knee arthroplasty: (4) HTN (hypertension): Plan Pt is a 77yoM with PMhx significant for HTN, DMII, HLD, chronic pain, ED admitted for L TKA done on 01/13/2023. The hospitalist service was consulted after a fall with a possible head injury. POD#3 Altered Mental Status Pt confused and not oriented, per nursing will try to get out of bed and leave . Pt reportedly heavy drinker. On AWSS protocol with Ativan and gabapentin. PRN zyprexa ordered as well. CT head on 01/13- with no acute change or fracture, MRI brain noted possible brain aneurysm, recommended head CTA ordered to confirm. Suspect likely related to Alcohol withdrawal- continue with AWSS protocol Fall/Head injury Per pt when he was alert and oriented, he was not wearing socks when he fell. Slipped while trying to get out of bed. States that he hit his head on the nearby BP machine. Denied LOC, headache or pain in the area of the head that was hit. No visible bruising on exam. Neuro exam with no gross deficits except in LLE that was recently operated on. Head CT was ordered- no acute changes. Pt remained stable but currently with AMS in setting of chronic alcohol use. TKA Pt is POD #3 s/p L TKA, following with ortho States that he did not hurt his left leg during the fall, notes it "gives out" all the time. Pain control, PT/OT Management per orthopedics. HTN, DMII, HLD- continue home medications CODE STATUS: Full code Diet: DMII DVT Prophylaxis: TEDS and aspirin per ortho. Dispo: d/c per primary service Thank you for this consultation. We will follow the patient with you during their hospital stay. You can reach a member of the [facility] Hospitalist Team 13/12 via the hospitalist role on tiger text. Admission and Anticipated Discharge Date Admission Date: January 15, 2023 Subjective Reportedly, pt needed restraints overnight. Per nursing, calmer today but still confused. Pt was sleeping during the exam. Review of Systems Review of Systems: Unobtainable due to cognitive status Physical Exam Physical Exam: General: Asleep, will stir with chest rub Psych: could not be determined Neuro: could not be determined HEENT: NC/AT CV: RRR, Normal s1, s2. Resp: no increased effort of breathing. Abdomen: Soft Results & Data Results & Data Vital Signs (Past 12 Hours) Vital Signs Temp Pulse Pulse Resp BP Pulse Ox O2 Del Method 01/16/23 08:00 91 H 01/16/23 17:37 36.8 C 89 18 136/82 94 Room Air 01/16/23 12:00 36.9 C 93 H 16 144/74 H 94 Room Air 01/16/23 07:42 37.3 C 91 H 18 154/73 H 98 Nasal Cannula O2 Flow Rate 01/16/23 08:00 01/16/23 17:37 01/16/23 12:00 01/16/23 07:42 4
[2023-01-16] MEDS ORDERED: LORazepam 2 MG/1 ML VIAL IV STA ×2 (20:31→20:51)
[2023-01-16] MEDS ORDERED: chlordiazePOXIDE ALCOHOL WITHDRAWL 25MG PO STA (20:31)
--- NOTE | 2023-01-16 20:34 | Communication Note ---
Date of Service: January 16, 2023 Patient requiring multiple doses of IV Ativan. Uncooperative and unwilling to take home gabapentin. Librium in place of gabapentin for now given worsening alcohol withdrawal if patient able to swallow.
[2023-01-16] MEDS ORDERED: METOPROLOL TARTRATE 1 MG/ML VIAL IV SCH (20:42)
[2023-01-16] MEDS ORDERED: METOPROLOL TARTRATE 1 MG/ML VIAL IV STA (20:42)
[2023-01-16 21:23] LABS: Albumin Level 3.7 gm/dl (3.4-5.0); Bilirubin Direct 0.2 mg/dl (0-0.2); Bilirubin,Total 1.4 mg/dl (0.2-1.0); Total Protein 6.5 gm/dl (6.0-8.3)
[2023-01-17] MEDS: LORazepam 2 MG/1 ML VIAL IV PRN ×3 (01:18→13:35)
[2023-01-17] MEDS: chlordiazePOXIDE HCl 25 MG CAP PO SCH ×5 (02:58→23:11)
[2023-01-17] MEDS: CeleBREX 200 MG CAP PO SCH ×3 (02:58→19:54)
[2023-01-17] MEDS: METOPROLOL TARTRATE 50 MG TAB PO SCH ×2 (02:59→10:20)
[2023-01-17] MEDS: ACETAMINOPHEN 500 MG TAB PO SCH ×2 (02:59→10:20)
[2023-01-17] MEDS: DOCUSATE SODIUM 100 MG CAP PO SCH ×3 (02:59→19:54)
[2023-01-17] MEDS: FAMOTIDINE 20 MG TAB PO SCH ×2 (02:59→19:54)
[2023-01-17] MEDS: SENNA 8.6 MG TAB PO SCH ×2 (02:59→19:55)
[2023-01-17] MEDS ORDERED: Nursing to Pharmacy Communication SCH (03:00)
[2023-01-17] MEDS ORDERED: METOPROLOL TARTRATE 1 MG/ML VIAL IV STA (03:08)
[2023-01-17] MEDS: PIPERACILLIN/TAZOBACTAM 4.5 GM in DEXTROSE 5% 100 ML IV SCH ×2 (05:58→14:46)
[2023-01-17 06:31] LABS: Basophils # (auto) 0.03 K/uL (0.00-0.20); Basophils % (auto) 0.3 %; Eosinophils # (auto) 0.07 K/uL (0.00-0.50); Eosinophils % (auto) 0.8 %; Hematocrit (blood only) 35.9 % (42.0-52.0); Hemoglobin 12.2 g/dl (14.0-18.0); Immature Granulocytes # (auto) 0.05 K/uL (0.01-0.20); Immature Granulocytes % (auto) 0.6 %; Lymphocytes # (auto) 0.69 K/uL (1.20-3.40); Lymphocytes % (auto) 7.9 %; Mean Corpuscular Hemoglobin 29.6 pg (25.0-34.0); Mean Corpuscular Volume 87.1 fL (80.0-100.0); Mean Platelet Volume 10.7 fL (9.4-12.4); Monocytes # (auto) 1.11 K/uL (0.11-0.59); Monocytes % (auto) 12.8 %; Neutrophils # (auto) 6.74 K/uL (1.40-6.50); Neutrophils % (auto) 77.6 %; Platelet Count 259 K/uL (130-400); RDW Coefficient of Variation 13.9 % (11.5-14.5); RDW Standard Deviation 44.1 fL (36.4-46.3); Red Blood Count 4.12 M/uL (4.70-6.10); White Blood Count 8.69 K/ul (4.8-10.8)
[2023-01-17 06:52] LABS: BUN Creatinine Ratio 22.8 (10-20); Calcium 9.1 mg/dl (8.6-10.3); Creatinine Clr Calc Pharmacy 106.7 ml/min; Est GFR (African American) 115.6 ml/min; Est GFR (Non-African American) 99.7 ml/min; Magnesium 1.9 mg/dl (1.7-2.4); Phosphorus 2.7 mg/dl (2.5-4.9); Potassium 3.3 mmol/L (3.5-5.1)
--- NOTE | 2023-01-17 09:29 | Hospitalist Progress Note ---
Date of Service January 17, 2023 Assessment & Plan (1) S/P total knee arthroplasty: (2) Alcohol withdrawal delirium: (3) Head injury: (4) Fall: (5) HTN (hypertension): Plan Pt is a 77yoM with PMhx significant for HTN, DMII, HLD, chronic pain, ED admitted for L TKA done on 01/13/2023. The hospitalist service was consulted after a fall with a possible head injury. POD#4 Alcohol withdrawal delirium On AWSS protocol with Ativan and Librium. PRN zyprexa ordered as well. Off restraints, and has received Ativan 9mg IV overnight Currently under the influence of Ativan IV given this am. CT head on 01/13- with no acute change or fracture, MRI brain noted possible brain aneurysm, CTA head notes 8x8mm ALEX aneurysm. Recommend outpatient follow- up with neurosurgery. Currently obtunded and cannot tolerate PO medications which were held. post operative Fall/Head injury Per pt when he was alert and oriented, he was not wearing socks when he fell. Slipped while trying to get out of bed. States that he hit his head on the [employer] y BP machine. Denied LOC, headache or pain in the area of the head that was hit. No visible bruising on exam. Neuro exam with no gross deficits except in LLE that was recently operated on. Currently obtunded so cannot assess. Head CT was ordered- no acute changes. Pt remained stable but currently with AMS in setting of chronic alcohol use. Other imaging as noted above. TKA Pt is POD #4 s/p L TKA, following with ortho States that he did not hurt his left leg during the fall, notes it "gives out" all the time. Pain control, PT/OT Wound care per ortho Received Ancef perioperatively per protocol and was later placed on empiric Zosyn I don't see evidence of active infection at this time and will stop additional abx. HTN elevated in setting of alcohol withdrawal cont current medications and treatment for ETOH withdrawal DMII-chronic, well controlled per recent A1C 5.8 in November 12. Cont current therapy Hyperlipidemia-chronic, stable, continue home medications CODE STATUS: Full code Diet: DMII DVT Prophylaxis: heparin Dispo: d/c per primary service Thank you for this consultation. We will follow the patient with you during their hospital stay. You can reach a member of the [facility] Hospitalist Team 13/12 via the hospitalist role on tiger text. Marsha Rivera DO [facility] Admission and Anticipated Discharge Date Admission Date: January 15, 2023 Subjective 77 yo M presented for a right knee surgery on 01/13 with post operative course complicated by a fall on POD#1 with possible head injury and alcohol withdrawal symptoms that occurred later that evening. overnight he required intermittent Ativan totaling 9mg IV he recently received an additional 1mg IV of Ativan and is currently drowsy and breathing comfortably. He is not currently requiring restraints. Per RN he did not eat anything this morning, but he was eating yesterday. Review of Systems Review of Systems: cannot obtain as he is obtunded. Physical Exam Physical Exam: CONSTITUTIONAL: WNWD, vitals as above, generally well-appearing, obtunded EYES: normal conjunctivae, no scleral icterus, ENT: external ear and nose normal, MMM NECK: trachea midline RESPIRATORY: clear to auscultation bilaterally, no crackles, rales or wheezes, normal respiratory effort CARDIOVASCULAR: regular rate and rhythm, S1 and 2 heard without murmurs, gallops or rubs, no JVD, no peripheral edema CHEST: inspection of chest was normal GASTROINTESTINAL: soft, ND, no guarding MUSCULOSKELETAL: obtunded and cannot assess, WNWD SKIN: warm and dry, right knee surgical incision covered by clean, dry intact surgical dressing. NEUROLOGIC: no tremor, obtunded PSYCHIATRIC: obtunded Results & Data Results & Data Vital Signs (Past 12 Hours) Vital Signs Temp Pulse Pulse Resp BP BP Pulse Ox 01/17/23 07:49 89 01/17/23 07:45 36.6 C 50 L 15 171/78 H 90 01/16/23 22:14 92 H 01/17/23 03:29 82 137/84 01/17/23 03:14 90 162/78 H 01/17/23 03:00 36.6 C 109 H 20 167/86 H 93 01/17/23 01:17 36.5 C 112 H 26 H 172/81 H 01/16/23 22:45 36.5 C 91 H 16 164/84 H 96 O2 Del Method 01/17/23 07:49 01/17/23 07:45 Room Air 01/16/23 22:14 01/17/23 03:29 01/17/23 03:14 01/17/23 03:00 Room Air 01/17/23 01:17 01/16/23 22:45 Room Air Laboratory Results Short CBC 01/17/23 Range/Units 05:58 WBC 8.69 (4.8-10.8) K/ul Hgb 12.2 L (14.0-18.0) g/dl Hct 35.9 L (42.0-52.0) % Plt Count 259 (130-400) K/uL BMP 01/17/23 05:58 Sodium 138 Potassium 3.3 L Chloride 102 Carbon Dioxide 27 BUN 13 Creatinine 0.57 L Glucose 110 H Calcium 9.1 Liver Function 01/16/23 Range/Units 20:43 Total Bilirubin 1.4 H (0.2-1.0) mg/dl Direct Bilirubin 0.2 (0-0.2) mg/dl AST 14 (13-39) U/L ALT 9 (7-52) U/L Alkaline Phosphatase 50 (34-104) U/L Albumin 3.7 (3.4-5.0) gm/dl Medications Administered Current Inpatient Medications Acetaminophen (Acetaminophen 500 Mg Tab) 1,000 mg PO Q8H KALI Stop: 02/12/23 13:59 Last Admin: 01/17/23 02:59 Dose: Not Given Al Hydrox/Mg Hydrox/Simethicone (Aluminum/Magnesium Susp 30 Ml Udc) 15 ml PO Q4H PRN PRN Reason: Heartburn Stop: 02/12/23 08:52 Amlodipine Besylate (Amlodipine Besylate 5 Mg Tab) 5 mg PO QAM KALI Stop: 02/12/23 08:59 Last Admin: 01/16/23 08:48 Dose: 5 mg Baclofen (Baclofen 10 Mg Tab) 10 mg PO TID PRN PRN Reason: Muscle Spasm Stop: 02/12/23 08:56 Bisacodyl (Bisacodyl 10 Mg Supp) 10 mg MS DAILY PRN PRN Reason: Constipation Stop: 02/12/23 08:52 Celecoxib (Celebrex 200 Mg Cap) 200 mg PO BID KALI Stop: 02/13/23 20:59 Last Admin: 01/17/23 02:58 Dose: Not Given Chlordiazepoxide HCl (Chlordiazepoxide Hcl 25 Mg Cap) 25 mg PO Q8H KALI Stop: 01/18/23 16:01 Chlordiazepoxide HCl (Chlordiazepoxide Hcl 25 Mg Cap) 25 mg PO Q6 KALI Stop: 01/17/23 18:01 Last Admin: 01/17/23 02:58 Dose: Not Given Chlordiazepoxide HCl (Chlordiazepoxide Hcl 10 Mg Cap) 10 mg PO Q8H KALI Stop: 01/19/23 16:01 Chlordiazepoxide HCl (Chlordiazepoxide Hcl 5 Mg Cap) 5 mg PO Q12H KALI Stop: 01/20/23 18:01 Clobetasol Propionate (Clobetasol Propionate 0.05% Oint 15 Gm Tube) 1 appln EXT DAILY PRN PRN Reason: Skin Irritation Stop: 02/12/23 10:35 Cyanocobalamin (Cyanocobalamin (B-12) 500 Mcg Tablet) 1,000 mcg PO QAM [facility] Stop: 02/12/23 08:59 Last Admin: 01/16/23 08:59 Dose: 1,000 mcg Dextrose (Dextrose 50% 50 Ml Syringe) 25 - 50 ml IV UD PRN; Protocol PRN Reason: Hypoglycemia Protocol Stop: 02/12/23 10:59 Docusate Sodium (Docusate Sodium 100 Mg Cap) 100 mg PO BID KALI Stop: 02/12/23 08:59 Last Admin: 01/17/23 02:59 Dose: Not Given Duloxetine HCl (Duloxetine Hcl 30 Mg Cap) 30 mg PO QAM [facility] Stop: 02/12/23 08:59 Last Admin: 01/16/23 08:48 Dose: 30 mg Famotidine (Famotidine 20 Mg Tab) 20 mg PO QPM KALI Stop: 02/12/23 20:59 Last Admin: 01/17/23 02:59 Dose: Not Given Folic Acid (Folic Acid 1 Mg Tab) 1 mg PO QAM [facility] Stop: 02/14/23 08:59 Last Admin: 01/16/23 08:47 Dose: 1 mg Gabapentin (Gabapentin 600 Mg Tab) 600 mg PO QID [facility] Stop: 02/12/23 08:59 Last Admin: 01/16/23 17:28 Dose: Not Given Glucagon (Glucagon For Inj 1 Mg Vial) 1 mg IM UD PRN; Protocol PRN Reason: Hypoglycemia Protocol Stop: 02/12/23 10:59 Glucose (Glucose 40% Gel 15 Gm Tube) 15 - 30 gm PO UD PRN; Protocol PRN Reason: Hypoglycemia Protocol Stop: 02/12/23 10:59 Glucose (Glucose 10 Tab/Tube) 4 - 8 tab PO UD PRN; Protocol PRN Reason: Hypoglycemia Protocol Stop: 02/12/23 10:59 Heparin Sodium (Porcine) (Heparin Sod 5,000 Unit/0.5 Ml Vial) 5,000 units SQ Q12 KALI Stop: 02/14/23 11:28 Last Admin: 01/16/23 20:23 Dose: 5,000 units Hydrochlorothiazide (Hydrochlorothiazide 25 Mg Tab) 25 mg PO [id number] [facility] Stop: 02/12/23 08:59 Last Admin: 01/14/23 08:23 Dose: 25 mg Hydromorphone HCl (Hydromorphone Inj 0.5 Mg/0.5 Ml Syr) 0.5 mg IV Q4H PRN PRN Reason: Pain or Pre PT Stop: 01/27/23 08:52 Acetaminophen (Ofirmev) 1,000 mg in 100 mls @ 400 mls/hr IV Q8H PRN PRN Reason: Pain or Fever Stop: 01/18/23 15:24 Piperacillin Sod/Tazobactam (Sod 4.5 gm/ Dextrose) 120 mls @ 30 mls/hr IV Q8H KALI; Protocol Stop: 01/17/23 20:59 Last Admin: 01/17/23 05:58 Dose: 30 mls/hr Lorazepam (Lorazepam 2 Mg/1 Ml Vial) 2 mg IV UD PRN; Protocol PRN Reason: EtOH Withdrawal AWSS Score 8,9 Stop: 02/13/23 23:21 Last Admin: 01/17/23 01:18 Dose: 2 mg Lorazepam (Lorazepam 2 Mg/1 Ml Vial) 1 mg IV UD PRN; Protocol PRN Reason: EtOH Withdrawal AWSS Score 6,7 Stop: 02/13/23 23:21 Last Admin: 01/16/23 10:02 Dose: 1 mg Losartan Potassium (Losartan Potassium 50 Mg Tab) 100 mg PO QAM [facility] Stop: 02/12/23 08:59 Last Admin: 01/16/23 08:49 Dose: 100 mg Magnesium Hydroxide (Magnesium Hydroxide Susp 30 Ml Udc) 30 ml PO Q6H PRN PRN Reason: Constipation Stop: 02/12/23 08:52 Metoprolol Tartrate (Metoprolol Tartrate 50 Mg Tab) 50 mg PO BID KALI Stop: 02/12/23 08:59 Last Admin: 01/17/23 02:59 Dose: Not Given Metoprolol Tartrate (Metoprolol Tartrate 1 Mg/Ml Vial) 2.5 mg IV Q6 [facility] Stop: 02/16/23 11:59 Miscellaneous (Carbohydrates For Hypoglycemia ) 15 - 30 gm PO UD PRN PRN Reason: Hypoglycemia Treatment Stop: 02/12/23 10:59 Multivitamins (Multivitamin Tab) 1 tab PO QAM [facility] Stop: 02/12/23 08:59 Last Admin: 01/16/23 08:48 Dose: 1 tab Naloxone HCl (Naloxone Hcl 0.4 Mg/1 Ml Vial/Carp) 0.1 mg IV Q5M PRN PRN Reason: Oversedation/Resp Depression Stop: 02/12/23 08:52 Nitroglycerin (Nitroglycerin Sl 0.4 Mg/Tab Tab) 0.4 mg SL Q5M PRN PRN Reason: Chest Pain Stop: 02/12/23 08:56 Olanzapine (Olanzapine 10 Mg/2.1 Ml Sdv) 2.5 mg IM Q4H PRN PRN Reason: Anxiety/Agitation Stop: 02/13/23 19:25 Last Admin: 01/15/23 15:55 Dose: 2.5 mg Ondansetron HCl (Ondansetron Inj 2 Mg/Ml 2 Ml Vial) 4 mg IV Q6H PRN PRN Reason: Nausea And Vomiting Stop: 02/12/23 08:52 Oxycodone HCl (Oxycodone Hcl Ir 5 Mg Tab (Immediate Release)) 5 - 10 mg PO Q4H PRN PRN Reason: Pain or Pre PT Stop: 01/27/23 08:52 Last Admin: 01/14/23 22:54 Dose: 10 mg Potassium Chloride (Potassium Chloride Crtab 20 Meq Tabcr) 40 meq PO Q6H KALI Stop: 01/17/23 15:31 Rosuvastatin Calcium (Rosuvastatin Calcium 20 Mg Tab) 20 mg PO QAM [facility] Stop: 02/12/23 08:59 Last Admin: 01/16/23 08:47 Dose: 20 mg Sennosides (Senna 8.6 Mg Tab) 17.2 mg PO HS [facility] Stop: 02/12/23 20:59 Last Admin: 01/17/23 02:59 Dose: Not Given Tamsulosin HCl (Tamsulosin Hcl 0.4 Mg Cap) 0.4 mg PO QAM PRN PRN Reason: UNABLE to void Stop: 02/12/23 08:52 Thiamine HCl (Thiamine Hcl 100 Mg Tab) 100 mg PO QAM [facility] Stop: 02/14/23 08:59 Last Admin: 01/16/23 08:48 Dose: 100 mg
--- NOTE | 2023-01-17 09:46 | Orthopedic Progress Note ---
Date of Service January 17, 2023 Assessment & Plan (1) S/P total knee arthroplasty: Plan: POD4 s/p LTKA by Dr Worthy PT/OT Maximum assistance Will cont to follow Ice with easy wrap Weightbearing as tolerated with walker assistance Pain control with p.o. medication DVT prophylaxis with MODESTA stockings and Heparin SQ He will need to be cleared by medicine service before discharge. Case management for placement With questions contact our clinic at [phone] Admission and Anticipated Discharge Date Admission Date: January 15, 2023 Subjective Pt seen and examined bedside. Pt laying in bed asleep able to be slightly aroused. Somewhat alert. He is mumbling, not able to understand. confused Review of Systems Review of Systems: Pt laying in bed asleep able to be slightly aroused. Somewhat alert. He is mumbling, not able to understand. confused Left Lower extremity:Dressing in tact, clean and dry. Minor swelling. Thigh and calf soft and compressible. Pt able to slightly wiggles his toes and DF/PF his foot. he does not follow any other commands. Results & Data Vital Signs (Past 12 Hours) Vital Signs Temp Pulse Pulse Resp BP BP Pulse Ox 01/17/23 07:49 89 01/17/23 07:45 36.6 C 50 L 15 171/78 H 90 01/16/23 22:14 92 H 01/17/23 03:29 82 137/84 01/17/23 03:14 90 162/78 H 01/17/23 03:00 36.6 C 109 H 20 167/86 H 93 01/17/23 01:17 36.5 C 112 H 26 H 172/81 H 01/16/23 22:45 36.5 C 91 H 16 164/84 H 96 O2 Del Method 01/17/23 07:49 01/17/23 07:45 Room Air 01/16/23 22:14 01/17/23 03:29 01/17/23 03:14 01/17/23 03:00 Room Air 01/17/23 01:17 01/16/23 22:45 Room Air
[2023-01-17] MEDS: HEPARIN SOD 5,000 UNIT/0.5 ML VIAL SQ SCH ×2 (10:03→21:16)
[2023-01-17] MEDS: CYANOCOBALAMIN (B-12) 500 MCG TABLET PO SCH (10:20)
[2023-01-17] MEDS: FOLIC ACID 1 MG TAB PO SCH (10:20)
[2023-01-17] MEDS: DULoxetine HCL 30 MG CAP PO SCH (10:20)
[2023-01-17] MEDS: LOSARTAN POTASSIUM 50 MG TAB PO SCH (10:20)
[2023-01-17] MEDS: amLODIPine BESYLATE 5 MG TAB PO SCH (10:20)
[2023-01-17] MEDS: ROSUVASTATIN CALCIUM 20 MG TAB PO SCH (10:21)
[2023-01-17] MEDS: MULTIVITAMIN TAB PO SCH (10:21)
[2023-01-17] MEDS: THIAMINE HCL 100 MG TAB PO SCH (10:21)
[2023-01-17] MEDS: POTASSIUM CHLORIDE CRTAB 20 MEQ TABCR PO SCH ×2 (10:50→16:37)
[2023-01-17] MEDS: THIAMINE HCL 100 MG in SYRINGE 9 ML IV SCH (11:48)
[2023-01-17] MEDS: METOPROLOL TARTRATE 1 MG/ML VIAL IV SCH ×3 (12:59→23:11)
[2023-01-17] MEDS: ACETAMINOPHEN 1,000 MG/100 ML VIAL IV SCH ×2 (13:06→22:45)
[2023-01-18] MEDS: METOPROLOL TARTRATE 1 MG/ML VIAL IV SCH ×2 (05:21→13:09)
[2023-01-18] MEDS: ACETAMINOPHEN 1,000 MG/100 ML VIAL IV SCH ×2 (05:21→13:13)
[2023-01-18 06:56] LABS: Hematocrit (blood only) 37.4 % (42.0-52.0); Hemoglobin 12.9 g/dl (14.0-18.0); Mean Corpuscular Hemoglobin 29.7 pg (25.0-34.0); Mean Corpuscular Hgb Conc 34.5 g/dL (32.0-36.0); Mean Corpuscular Volume 86.2 fL (80.0-100.0); Mean Platelet Volume 10.5 fL (9.4-12.4); Platelet Count 295 K/uL (130-400); RDW Coefficient of Variation 13.8 % (11.5-14.5); RDW Standard Deviation 43.7 fL (36.4-46.3); Red Blood Count 4.34 M/uL (4.70-6.10); White Blood Count 7.29 K/ul (4.8-10.8)
[2023-01-18] MEDS: LORazepam 2 MG/1 ML VIAL IV PRN (07:09)
[2023-01-18 07:27] LABS: Anion Gap 9 (3-11); BUN Creatinine Ratio 32.7 (10-20); Blood Urea Nitrogen 17 mg/dl (6-23); Calcium 9.3 mg/dl (8.6-10.3); Carbon Dioxide 28 mmol/L (21-32); Chloride 102 mmol/L (98-107); Creatinine Clr Calc Pharmacy 116.9 ml/min; Est GFR (African American) 120.1 ml/min; Est GFR (Non-African American) 103.6 ml/min; Glucose 108 mg/dl (70-99(Fasting)); Magnesium 2.3 mg/dl (1.7-2.4); Sodium 139 mmol/L (136-145)
[2023-01-18] MEDS ORDERED: hydroCHLOROthiazide 25 MG TAB PO SCH (09:00)
--- NOTE | 2023-01-18 09:25 | Orthopedic Progress Note ---
Date of Service January 18, 2023 Assessment & Plan (1) S/P total knee arthroplasty: Plan: POD 5 s/p LTKA by Dr Worthy PT/OT Maximum assistance Will cont to follow Ice with easy wrap Weightbearing as tolerated with walker assistance Pain control with p.o. medication DVT prophylaxis with MODESTA stockings and Heparin SQ He will need to be cleared by medicine service before discharge. Case management for placement With questions contact our clinic at [phone] Admission and Anticipated Discharge Date Admission Date: January 15, 2023 Subjective This 77-year-old male is seen today for follow-up of a left total knee arthroplasty. He is easily aroused today and very coherent. He states that he does have some knee pain that is effectively controlled with p.o. pain medication. His biggest concern is that he is not able to fully straighten his knee. He states he has had great difficulty getting up with physical therapy and follow their instructions. He is hoping that things go better today. He states he is not aware that he was essentially incoherent for the last 2 days due to alcohol withdrawal. He states that he stopped drinking before the procedure. Currently denies chest pain, shortness of breath, fever, chills, sweats, lethargy, numbness or tingling in his left lower extremity. He also denies nausea, vomiting, diarrhea or difficulty voiding Review of Systems Review of Systems: All systems reviewed & are unremarkable except as noted in Subjective Physical Exam Physical Exam: Left knee: [place] is clean dry and intact and left in place. He does have some mild edema about the knee but no erythema, ecchymosis or significant effusion. Able to move digits in left LE. He is neurovascularly intact in the left lower extremity. Active knee range of motion is from 8 degrees of extension to about 70 degrees of flexion. He is able to perform an active straight leg raise test and actively dorsi and plantarflex foot without issue.A pillow was placed under the patient's left heel, and he was advised to be in the knee immobilizer when he is ambulatory. Results & Data Vital Signs (Past 12 Hours) Vital Signs Temp Pulse Pulse Pulse Resp BP BP 01/18/23 07:35 36.6 C 92 H 20 173/92 H 01/18/23 07:34 68 01/18/23 05:36 70 151/71 H 01/18/23 05:21 71 161/78 H 01/18/23 03:29 36.6 C 71 19 161/78 H 01/18/23 00:03 70 155/71 H 01/17/23 23:39 80 01/17/23 23:11 80 151/81 H 01/17/23 22:39 36.8 C 80 19 151/81 H 01/17/23 22:27 Pulse Ox O2 Del Method O2 Flow Rate 01/18/23 07:35 96 Oxymask 2 01/18/23 07:34 01/18/23 05:36 01/18/23 05:21 01/18/23 03:29 96 Oxymask 6 01/18/23 00:03 01/17/23 23:39 01/17/23 23:11 01/17/23 22:39 98 Oxymask 6 01/17/23 22:27 Oxymask 5 Diagnostic Findings Laboratory Results WBC 7.29 K/ul (4.8-10.8) 01/18/23 06:30 RBC 4.34 M/uL (4.70-6.10) L 01/18/23 06:30 Hgb 12.9 g/dl (14.0-18.0) L 01/18/23 06:30 Hct 37.4 % (42.0-52.0) L 01/18/23 06:30 MCV 86.2 fL (80.0-100.0) 01/18/23 06:30 MCH 29.7 pg (25.0-34.0) 01/18/23 06:30 MCHC 34.5 g/dL (32.0-36.0) 01/18/23 06:30 RDW Std Deviation 43.7 fL (36.4-46.3) 01/18/23 06:30 RDW Coeff of Art 13.8 % (11.5-14.5) 01/18/23 06:30 Plt Count 295 K/uL (130-400) 01/18/23 06:30 MPV 10.5 fL (9.4-12.4) 01/18/23 06:30 Immature Gran % (Auto) 0.6 % 01/17/23 05:58 Neut % (Auto) 77.6 % 01/17/23 05:58 Lymph % (Auto) 7.9 % 01/17/23 05:58 Warren % (Auto) 12.8 % 01/17/23 05:58 Eos % (Auto) 0.8 % 01/17/23 05:58 Baso % (Auto) 0.3 % 01/17/23 05:58 Neut # (Auto) 6.74 K/uL (1.40-6.50) H 01/17/23 05:58 Lymph # (Auto) 0.69 K/uL (1.20-3.40) L 01/17/23 05:58 Warren # (Auto) 1.11 K/uL (0.11-0.59) H 01/17/23 05:58 Eos # (Auto) 0.07 K/uL (0.00-0.50) 01/17/23 05:58 Baso # (Auto) 0.03 K/uL (0.00-0.20) 01/17/23 05:58 Immature Gran # (Auto) 0.05 K/uL (0.01-0.20) 01/17/23 05:58 Sodium 139 mmol/L (136-145) 01/18/23 06:30 Potassium 3.1 mmol/L (3.5-5.1) L 01/18/23 07:39 Chloride 102 mmol/L (98-107) 01/18/23 06:30 Carbon Dioxide 28 mmol/L (21-32) 01/18/23 06:30 Anion Gap 9 (3-11) 01/18/23 06:30 BUN 17 mg/dl (6-23) 01/18/23 06:30 Creatinine 0.52 mg/dl (0.6-1.4) L 01/18/23 06:30 Est Cr Clr Drug Dosing 116.9 ml/min 01/18/23 06:30 Est GFR ( Amer) 120.1 ml/min 01/18/23 06:30 Est GFR (Non-Af Amer) 103.6 ml/min 01/18/23 06:30 BUN/Creatinine Ratio 32.7 (10-20) H 01/18/23 06:30 Glucose 108 mg/dl (70-99(Fasting)) H 01/18/23 06:30 POC Glucose 122 mg/dl (70-99) H 01/18/23 07:16 Estimat Average Glucose 120 mg/dl 01/14/23 08:31 Hemoglobin A1c 5.8 % (4.5-5.6) H 01/14/23 08:31 Calcium 9.3 mg/dl (8.6-10.3) 01/18/23 06:30 Phosphorus 2.7 mg/dl (2.5-4.9) 01/17/23 05:58 Magnesium 2.3 mg/dl (1.7-2.4) 01/18/23 06:30 Total Bilirubin 1.4 mg/dl (0.2-1.0) H 01/16/23 20:43 Direct Bilirubin 0.2 mg/dl (0-0.2) 01/16/23 20:43 AST 14 U/L (13-39) 01/16/23 20:43 ALT 9 U/L (7-52) 01/16/23 20:43 Alkaline Phosphatase 50 U/L (34-104) 01/16/23 20:43 Total Protein 6.5 gm/dl (6.0-8.3) 01/16/23 20:43 Albumin 3.7 gm/dl (3.4-5.0) 01/16/23 20:43 Blood Type B Positive 01/13/23 06:02 Antibody Screen NEGATIVE 01/13/23 06:02 Impressions Knee X-Ray 01/13/23 08:53 XR knee LT 1 or 2V routine CLINICAL HISTORY: Surgical Post Op COMPARISON: Left knee radiographs December 28, 2022. FINDINGS: Left knee arthroplasty with polyethylene tibial component is noted. No periprosthetic fracture is noted. There are no unexpected radiopaque foreign bodies. IMPRESSION: Expected findings following left knee arthroplasty. ACT 112: Negative or not required by law. Electronically signed by: Hossein Mathur M.D. 01/13/2023 9:31 AM Pelvis X-Ray 01/13/23 16:02 XR pelvis 1-2V routine HISTORY: 77 years-old Male patient fell acute pelvic pain status post fall COMPARISON: CT 07/16/2017 TECHNIQUE: AP view the pelvis FINDINGS: Partially imaged hardware of the lumbosacral spine with iliac bones. Moderate left and severe right hip osteoarthritis. No acute fracture, dislocation or suspicious bone lesion identified. IMPRESSION: 1. No acute fracture or dislocation. 2. Severe right hip osteoarthritis. ACT 112: Negative or not required by law. The above report was generated using voice recognition software. It may contain grammatical, syntax or spelling errors. Electronically signed by: Antonio Robbins M.D. 01/13/2023 5:[address] 01/13/23 17:22 CT head/brain wo con CLINICAL HISTORY: 77 years-old Male with s/p fall and hit head post op. Acute head injury status post fall TECHNIQUE: Multiple axial CT images of the head were obtained without contrast. A dose lowering technique was utilized adhering to the principles of ALARA. CT DOSE: 625.80 mGy.cm COMPARISON: None. FINDINGS: No acute intracranial hemorrhage, midline shift, intracranial mass, hydrocephalus, territorial ischemia or abnormal extra-axial collection. Involutional changes with chronic microvascular ischemic disease. Cerebrovascular calcifications. The calvarium is intact. Mild mucosal thickening of the ethmoid air cells. The mastoid air cells are clear. IMPRESSION: No acute intracranial abnormality or calvarial fracture. ACT 112: Negative or not required by law. The above report was generated using voice recognition software. It may contain grammatical, syntax or spelling errors. Electronically signed by: Antonio Robbins M.D. 01/13/2023 6:56 PM Brain MRI 01/15/23 08:11 MRI OF THE BRAIN WITHOUT AND WITH IV CONTRAST CLINICAL HISTORY: Altered mental status. COMPARISON STUDY: Head CT January 13, 2023. TECHNIQUE: Utilizing a 1.5 Jyoti magnet and dedicated coil, multiplanar, multiecho imaging of the brain was performed pre and postcontrast administration. IV administration of 8 mL of Gadavist contrast was uneventful. FINDINGS: There are no foci of restricted diffusion to suggest acute infarct. No acute intracranial hemorrhage, midline shift or mass effect is present. Ventricular system is unremarkable. Basal cisterns are patent. Flow-voids for the major intracranial vessels are present. There is a 7 mm round flow void adjacent to the anterior cerebral arteries on axial T2-weighted sequence image 13 of 25. Otherwise, flow-voids are unremarkable. There is no intracranial mass or pathologic enhancement. Mild white matter T2 hyperintense foci suggest minimal small vessel disease. IMPRESSION: 1. No acute intracranial findings. 2. Suspected intracranial aneurysm, measuring approximately 7 mm, possibly arising from the anterior communicating artery. Nonemergent CTA of the head is recommended for further evaluation. 3. No intracranial mass or pathologic enhancement. ACT 112: Positive. There are findings on this exam that require communication between the performing entity and the patient following Patient Test Result Information Act ([place] Act 112) guidelines. Electronically signed by: Hossein Mathur M.D. 01/15/2023 6:43 PM Chest X-Ray 01/15/23 09:31 XR chest 1V portable CLINICAL HISTORY: for MRI clearance COMPARISON STUDY: Chest CT July 16, 2017. FINDINGS: Lung volumes are normal. Lungs are clear. There is no pneumothorax or pleural effusion. Cardiac size is stable. Mediastinal contours are normal. There is no evidence for pulmonary edema. No unexpected radiopaque foreign bodies within the chest are present. There is no pacemaker. Scoliosis hardware is partially imaged. IMPRESSION: No contraindication to MRI within the chest. ACT 112: Negative or not required by law. Electronically signed by: Hossein Mathur M.D. 01/15/2023 10:15 AM KUB X-Ray 01/15/23 09:31 KUB CLINICAL HISTORY: for MRI clearance COMPARISON STUDY: CT of the abdomen and pelvis July 16, 2017. KUB July 17, 2017. FINDINGS: Scoliosis hardware is incidentally noted. No unexpected radiopaque foreign bodies within the abdomen or pelvis are present. There is no evidence for a bowel obstruction. IMPRESSION: No contraindication to MRI within the abdomen or pelvis. ACT 112: Negative or not required by law. Electronically signed by: Hossein Mathur M.D. 01/15/2023 11:53 AM Head CTA 01/16/23 13:17 HEAD CTA HISTORY: followup brain MRI, possible aneurysm, altered mental status TECHNIQUE: Multiaxial CT images of the head were performed both before and after the intravenous administration of contrast to evaluate the major cerebral vessels. 3D/MIP images were also obtained. Sagittal and coronal reformats were reviewed. A dose lowering technique was utilized adhering to the principles of ALARA. COMPARISON: Brain MRI 01/15/2023. FINDINGS: Motion artifact. The paranasal sinuses and mastoid air cells are clear. There is no mass, hematoma, midline shift, acute infarct. Mild atrophy and microvascular ischemic changes are again noted. Mild to moderate calcified plaque within the bilateral carotid siphons. There is mild multifocal stenosis within the left carotid siphon due to the calcified plaque. The distal vertebral arteries and basilar artery show no significant stenosis or occlusion. The bilateral MCAs and geomagnetician show no significant stenosis, occlusion, or aneurysm. The bilateral ACAs are widely patent. 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 IMPRESSION: 1. No acute infarct or intracranial hemorrhage. 2. No significant stenosis or occlusion within the knik of [place]. 3. 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 ACT 112: Negative or not required by law. Electronically signed by: Pavan Parekh M.D. 01/16/2023 2:34 PM
[2023-01-18] MEDS: HEPARIN SOD 5,000 UNIT/0.5 ML VIAL SQ SCH ×2 (10:14→21:03)
[2023-01-18] MEDS: THIAMINE HCL 100 MG in SYRINGE 9 ML IV SCH (10:15)
--- NOTE | 2023-01-18 10:35 | Hospitalist Progress Note ---
Date of Service January 18, 2023 Assessment & Plan (1) S/P total knee arthroplasty: (2) Alcohol withdrawal delirium: (3) Head injury: (4) Fall: (5) HTN (hypertension): Plan Pt is a 77yoM with PMhx significant for HTN, DMII, HLD, chronic pain, ED admitted for L TKA done on 01/13/2023. The hospitalist service was consulted after a fall with a possible head injury. POD#5 Alcohol withdrawal delirium On AWSS protocol with Ativan and Librium. PRN zyprexa ordered as well. Off restraints, and has received Ativan 2mg IV overnight CT head on 01/13- with no acute change or fracture, MRI brain noted possible brain aneurysm, CTA head notes 8x8mm ALEX aneurysm. Recommend outpatient follow- up with neurosurgery. This now appears resolved as he is alert awake and oriented. He is in no acute distress. Vital signs are stable. post operative Fall/Head injury Per pt when he was alert and oriented, he was not wearing socks when he fell. Slipped while trying to get out of bed. States that he hit his head on the nearby BP machine. Denied LOC, headache or pain in the area of the head that was hit. No visible bruising on exam. Neuro exam with no gross deficits except in LLE that was recently operated on. Currently obtunded so cannot assess. Head CT was ordered- no acute changes. Pt remained stable but currently with AMS in setting of chronic alcohol use. Other imaging as noted above. No further work-up planned during this hospital stay. TKA Pt is POD #5 s/p L TKA, following with ortho Stated to her previous provider that he did not hurt his left leg during the fall, notes it "gives out" all the time. Pain control, PT/OT Wound care per ortho Received Ancef perioperatively per protocol and was later placed on empiric Zosyn I don't see evidence of active infection at this time and will stop additional abx. He is doing well clinically. HTN elevated in setting of alcohol withdrawal cont current medications and treatment for ETOH withdrawal and noncompliance with oral and antihypertensives We will restart hydrochlorothiazide, losartan, metoprolol twice daily now DMII-chronic, well controlled per recent A1C 5.8 in November 12. Cont current the rapy Hyperlipidemia-chronic, stable, continue home medications CODE STATUS: Full code Diet: DMII DVT Prophylaxis: heparin Dispo: I would expect him to be stable for discharge to rehab or home by tomorrow. I spent a total of 60minutes coordinating, documenting, and providing care for this patient excluding time spent in the performance of separately billed services Thank you for this consultation. We will follow the patient with you during their hospital stay. You can [facility] a [facility]12 via the hospitalist role on tiger text. Marsha Rivera DO [facility] and Anticipated Discharge Date Admission Date: January 15, 2023 Subjective 77 yo M presented for a right knee surgery on 01/13 with post operative course complicated by a fall on POD#1 with possible head injury and alcohol withdrawal symptoms that occurred later that evening. overnight he required only 2mg IV Ativan somnolent this morning and unable to give morning medications safely per primary RN new oxygen requirement developed overnight This was placed as he was having what appeared to be apneic episodes overnight, but he has been weaned to room air now and is more awake, alert and oriented. He denies any pain or hunger and is not short of breath Chest x-ray this morning reveals no acute cardiopulmonary findings however there is a radiodense object projecting over the mid neck and a foreign body could not be excluded. AP films of the neck are currently being obtained. These have not been read but on my wet read they appear to be a snap on his gown as opposed to foreign body. Physical Exam Physical Exam: CONSTITUTIONAL: WNWD, vitals as above, generally well-appearing, alert EYES: normal conjunctivae, no scleral icterus, ENT: external ear and nose normal, MMM NECK: trachea midline RESPIRATORY: clear to auscultation bilaterally, no crackles, rales or wheezes, normal respiratory effort CARDIOVASCULAR: regular rate and rhythm, S1 and 2 heard without murmurs, gallops or rubs, no JVD, no peripheral edema CHEST: inspection of chest was normal GASTROINTESTINAL: soft, ND, no guarding MUSCULOSKELETAL: Postop state to right knee. Otherwise, no focal deficits on musculoskeletal exam. SKIN: warm and dry, right knee surgical incision covered by clean, dry intact surgical dressing. NEUROLOGIC: no tremor, no gross focal deficits. Speech intact. PSYCHIATRIC: Alert awake and oriented. Results & Data Results & Data Vital Signs (Past 12 Hours) Vital Signs Temp Pulse Pulse Pulse Resp BP BP 01/18/23 08:00 01/18/23 07:35 36.6 C 92 H 20 173/92 H 01/18/23 07:34 68 01/18/23 05:36 70 151/71 H 01/18/23 05:21 71 161/78 H 01/18/23 03:29 36.6 C 71 19 161/78 H 01/18/23 00:03 70 155/71 H 01/17/23 23:39 80 01/17/23 23:11 80 151/81 H 01/17/23 22:39 36.8 C 80 19 151/81 H Pulse Ox O2 Del Method O2 Flow Rate 01/18/23 08:00 Oxymask 5 01/18/23 07:35 96 Oxymask 2 01/18/23 07:34 01/18/23 05:36 01/18/23 05:21 01/18/23 03:29 96 Oxymask 6 01/18/23 00:03 01/17/23 23:39 01/17/23 23:11 01/17/23 22:39 98 Oxymask 6 Laboratory Results Short CBC 01/18/23 Range/Units 06:30 WBC 7.29 (4.8-10.8) K/ul Hgb 12.9 L (14.0-18.0) g/dl Hct 37.4 L (42.0-52.0) % Plt Count 295 (130-400) K/uL BMP 01/18/23 01/18/23 06:30 07:39 Sodium 139 Potassium TNP 3.1 L Chloride 102 Carbon Dioxide 28 BUN 17 Creatinine 0.52 L Glucose 108 H Calcium 9.3 Medications Administered Current Inpatient Medications Al Hydrox/Mg Hydrox/Simethicone (Aluminum/Magnesium Susp 30 Ml Udc) 15 ml PO Q4 H PRN PRN Reason: Heartburn Stop: 02/12/23 08:52 Amlodipine Besylate (Amlodipine Besylate 5 Mg Tab) 5 mg PO QAM [facility] Stop: 02/12/23 08:59 Last Admin: 01/17/23 10:20 Dose: Not Given Baclofen (Baclofen 10 Mg Tab) 10 mg PO TID PRN PRN Reason: Muscle Spasm Stop: 02/12/23 08:56 Bisacodyl (Bisacodyl 10 Mg Supp) 10 mg LA DAILY PRN PRN Reason: Constipation Stop: 02/12/23 08:52 Celecoxib (Celebrex 200 Mg Cap) 200 mg PO BID [facility] Stop: 02/13/23 20:59 Last Admin: 01/17/23 19:54 Dose: Not Given Chlordiazepoxide HCl (Chlordiazepoxide Hcl 25 Mg Cap) 25 mg PO Q8H [facility] Stop: 01/18/23 16:01 Last Admin: 01/17/23 23:11 Dose: Not Given Chlordiazepoxide HCl (Chlordiazepoxide Hcl 10 Mg Cap) 10 mg PO Q8H [facility] Stop: 01/19/23 16:01 Chlordiazepoxide HCl (Chlordiazepoxide Hcl 5 Mg Cap) 5 mg PO Q12H [facility] Stop: 01/20/23 18:01 Clobetasol Propionate (Clobetasol Propionate 0.05% Oint 15 Gm Tube) 1 appln EXT DAILY PRN PRN Reason: Skin Irritation Stop: 02/12/23 10:35 Cyanocobalamin (Cyanocobalamin (B-12) 500 Mcg Tablet) 1,000 mcg PO QAM [facility] Stop: 02/12/23 08:59 Last Admin: 01/17/23 10:20 Dose: Not Given Dextrose (Dextrose 50% 50 Ml Syringe) 25 - 50 ml IV UD PRN; Protocol PRN Reason: Hypoglycemia Protocol Stop: 02/12/23 10:59 Docusate Sodium (Docusate Sodium 100 Mg Cap) 100 mg PO BID [facility] Stop: 02/12/23 08:59 Last Admin: 01/17/23 19:54 Dose: Not Given Duloxetine HCl (Duloxetine Hcl 30 Mg Cap) 30 mg PO QAM [facility] Stop: 02/12/23 08:59 Last Admin: 01/17/23 10:20 Dose: Not Given Famotidine (Famotidine 20 Mg Tab) 20 mg PO QPM [facility] Stop: 02/12/23 20:59 Last Admin: 01/17/23 19:54 Dose: Not Given Folic Acid (Folic Acid 1 Mg Tab) 1 mg PO QAM [facility] Stop: 02/14/23 08:59 Last Admin: 01/17/23 10:20 Dose: Not Given Gabapentin (Gabapentin 600 Mg Tab) 600 mg PO QID [facility] Stop: 02/12/23 08:59 Last Admin: 01/16/23 17:28 Dose: Not Given Glucagon (Glucagon For Inj 1 Mg Vial) 1 mg IM UD PRN; Protocol PRN Reason: Hypoglycemia Protocol Stop: 02/12/23 10:59 Glucose (Glucose 40% Gel 15 Gm Tube) 15 - 30 gm PO UD PRN; Protocol PRN Reason: Hypoglycemia Protocol Stop: 02/12/23 10:59 Glucose (Glucose 10 Tab/Tube) 4 - 8 tab PO UD PRN; Protocol PRN Reason: Hypoglycemia Protocol Stop: 02/12/23 10:59 Heparin Sodium (Porcine) (Heparin Sod 5,000 Unit/0.5 Ml Vial) 5,000 units SQ Q12 [facility] Stop: 02/14/23 11:28 Last Admin: 01/18/23 10:14 Dose: 5,000 units Hydrochlorothiazide (Hydrochlorothiazide 25 Mg Tab) 25 mg PO SuMoWeThFrSa@[id number] [facility] Stop: 02/12/23 08:59 Last Admin: 01/14/23 08:23 Dose: 25 mg Hydromorphone HCl (Hydromorphone Inj 0.5 Mg/0.5 Ml Syr) 0.5 mg IV Q4H PRN PRN Reason: Pain or Pre PT Stop: 01/27/23 08:52 Acetaminophen (Ofirmev) 1,000 mg in 100 mls @ 400 mls/hr IV Q8 [facility] Stop: 01/20/23 11:59 Last Infusion: 01/18/23 05:42 Dose: Infused Thiamine HCl 100 mg/ Syringe 10 mls @ 2 mls/min IV QAM [facility] Stop: 02/16/23 11:29 Last Admin: 01/18/23 10:15 Dose: 2 mls/min Lorazepam (Lorazepam 2 Mg/1 Ml Vial) 1 mg IV UD PRN; Protocol PRN Reason: EtOH Withdrawal AWSS Score 6+ Stop: 02/13/23 23:21 Last Admin: 01/18/23 07:09 Dose: 1 mg Losartan Potassium (Losartan Potassium 50 Mg Tab) 100 mg PO QAM [facility] Stop: 02/12/23 08:59 Last Admin: 01/17/23 10:20 Dose: Not Given Magnesium Hydroxide (Magnesium Hydroxide Susp 30 Ml Udc) 30 ml PO Q6H PRN PRN Reason: Constipation Stop: 02/12/23 08:52 Metoprolol Tartrate (Metoprolol Tartrate 50 Mg Tab) 50 mg PO BID [facility] Stop: 02/12/23 08:59 Last Admin: 01/17/23 10:20 Dose: Not Given Metoprolol Tartrate (Metoprolol Tartrate 1 Mg/Ml Vial) 2.5 mg IV Q6 [facility] Stop: 02/16/23 11:59 Last Admin: 01/18/23 05:21 Dose: 2.5 mg Miscellaneous (Carbohydrates For Hypoglycemia ) 15 - 30 gm PO UD PRN PRN Reason: Hypoglycemia Treatment Stop: 02/12/23 10:59 Multivitamins (Multivitamin Tab) 1 tab PO QAM [facility] Stop: 02/12/23 08:59 Last Admin: 01/17/23 10:21 Dose: Not Given Naloxone HCl (Naloxone Hcl 0.4 Mg/1 Ml Vial/Carp) 0.1 mg IV Q5M PRN PRN Reason: Oversedation/Resp Depression Stop: 02/12/23 08:52 Nitroglycerin (Nitroglycerin Sl 0.4 Mg/Tab Tab) 0.4 mg SL Q5M PRN PRN Reason: Chest Pain Stop: 02/12/23 08:56 Olanzapine (Olanzapine 10 Mg/2.1 Ml Sdv) 2.5 mg IM Q4H PRN PRN Reason: Anxiety/Agitation Stop: 02/13/23 19:25 Last Admin: 01/15/23 15:55 Dose: 2.5 mg Ondansetron HCl (Ondansetron Inj 2 Mg/Ml 2 Ml Vial) 4 mg IV Q6H PRN PRN Reason: Nausea And Vomiting Stop: 02/12/23 08:52 Oxycodone HCl (Oxycodone Hcl Ir 5 Mg Tab (Immediate Release)) 5 - 10 mg PO Q4H PRN PRN Reason: Pain or Pre PT Stop: 01/27/23 08:52 Last Admin: 01/14/23 22:54 Dose: 10 mg Rosuvastatin Calcium (Rosuvastatin Calcium 20 Mg Tab) 20 mg PO QAM [facility] Stop: 02/12/23 08:59 Last Admin: 01/17/23 10:21 Dose: Not Given Sennosides (Senna 8.6 Mg Tab) 17.2 mg PO HS [facility] Stop: 02/12/23 20:59 Last Admin: 01/17/23 19:55 Dose: Not Given Tamsulosin HCl (Tamsulosin Hcl 0.4 Mg Cap) 0.4 mg PO QAM PRN PRN Reason: UNABLE to void Stop: 02/12/23 08:52
[2023-01-18] MEDS: chlordiazePOXIDE HCl 25 MG CAP PO SCH (10:49)
[2023-01-18] MEDS: CYANOCOBALAMIN (B-12) 500 MCG TABLET PO SCH (10:50)
[2023-01-18] MEDS: CeleBREX 200 MG CAP PO SCH ×2 (10:50→21:02)
[2023-01-18] MEDS: LOSARTAN POTASSIUM 50 MG TAB PO SCH (10:50)
[2023-01-18] MEDS: DULoxetine HCL 30 MG CAP PO SCH (10:50)
[2023-01-18] MEDS: amLODIPine BESYLATE 5 MG TAB PO SCH (10:50)
[2023-01-18] MEDS: FOLIC ACID 1 MG TAB PO SCH (10:50)
[2023-01-18] MEDS: MULTIVITAMIN TAB PO SCH (10:50)
[2023-01-18] MEDS: ROSUVASTATIN CALCIUM 20 MG TAB PO SCH (10:50)
[2023-01-18] MEDS: DOCUSATE SODIUM 100 MG CAP PO SCH ×2 (10:50→21:02)
--- NOTE | 2023-01-18 11:20 | XRay Report ---
XR chest 1V portable CLINICAL HISTORY: new post op hypoxia COMPARISON STUDY: Chest CT July 16, 2017. Chest radiograph January 15, 2023. FINDINGS: Scoliosis hardware is incidentally noted. A 1.5 x 0.5 cm radiodensity projects over the mid neck. Lung volumes are normal. Lungs are clear. There is no pneumothorax or pleural effusion. Cardia c size is normal. Mediastinal contours are normal. There is no evidence for pulmonary edema. IMPRESSION: 1. No acute cardiopulmonary findings. 2. 1.5 x 0.5 cm radiodensity which projects over the mid neck. This may be on the patient however an ingested foreign body cannot be excluded. AP and lateral neck radiographs are recommended for further evaluation. ACT 112: Negative or not required by law. Electronically signed by: Hossein Mathur M.D. 01/18/2023 11:18 AM
[2023-01-18] MEDS: POTASSIUM CHLORIDE PWD 20 MEQ PACK PO SCH ×2 (14:51→20:02)
--- NOTE | 2023-01-18 16:31 | XRay Report ---
CERVICAL SPINE 4 VIEWS CLINICAL HISTORY: Foreign body assessment. FINDINGS: AP, lateral, odontoid, and swimmer's views of the cervical spine are obtained. No prior ciaran dies are available for comparison at the time of dictation. The skeletal structures are osteopenic. T here is no radiographic evidence of fracture or subluxation. Vertebral body height is maintained thro ughout the cervical spine. Alignment is preserved. Note that C6 and C7 are only seen on the swimmer's view. Anterior osteophytes are seen throughout. The spinolaminar line is intact. Fusion hardware is seen in the upper thoracic spine. The odontoid process and lateral masses appear intact as seen on th e open-mouth view. The atlantodental articulation is maintained noting productive degenerative change . The spinous processes appear intact. There is moderate disc space narrowing at C5-C6 and C6-C7 with posterior disc osteophyte complexes at these levels. Multilevel facet arthropathy is observed. The p revertebral soft tissues are normal as visualized. No radiodense foreign body is seen. Apical lung pa renchyma is clear as imaged. There is atherosclerotic calcification over the carotid bulbs. IMPRESSION: 1. No acute bony abnormality is seen involving the cervical spine. 2. Osteopenia and spondylotic change as above. 3. No radiodense foreign body is seen. Dictated: 01/18/2023 12:57 PM Transcribed: 01/18/2023 1:20 PM [place] [id number] [email or web address] [id number] Electronically signed by: Jean Marie Melton M.D. 01/18/2023 4:30 PM
[2023-01-18] MEDS: FAMOTIDINE 20 MG TAB PO SCH (21:02)
[2023-01-18] MEDS: SENNA 8.6 MG TAB PO SCH (21:03)
[2023-01-18] MEDS: ACETAMINOPHEN 325 MG TAB PO SCH (21:06)
[2023-01-18] MEDS: METOPROLOL TARTRATE 50 MG TAB PO SCH (21:07)
[2023-01-18] MEDS ORDERED: LORazepam 2 MG/1 ML VIAL IV PRN ×3 (22:44)
[2023-01-18] MEDS ORDERED: Ativan IV Alcohol Withdrawal--Active Protocol IV PRN (22:44)
--- NOTE | 2023-01-19 09:47 | Hospitalist Progress Note ---
Date of Service January 19, 2023 Assessment & Plan (1) S/P total knee arthroplasty: (2) Alcohol withdrawal delirium: (3) Head injury: (4) Fall: (5) HTN (hypertension): Plan Pt is a 77yoM with PMhx significant for HTN, DMII, HLD, chronic pain, ED admitted for L TKA done on 01/13/2023. The hospitalist service was consulted after a fall with a possible head injury. POD#6 Alcohol withdrawal delirium On AWSS protocol with Ativan and Librium. PRN zyprexa ordered as well. Off restraints, and continues to receive as needed Ativan CT head on 01/13- with no acute change or fracture, MRI brain noted possible brain aneurysm, CTA head notes 8x8mm ALEX aneurysm. Recommend outpatient follow- up with neurosurgery. Delirium appeared to resolve yesterday but came back again last night. Continue supportive care. He is tolerating p.o. There are no focal neurologic deficits therefore do not believe a repeat head CT is necessary at this time. post operative Fall/Head injury Per pt when he was alert and oriented, he was not wearing socks when he fell. Slipped while trying to get out of bed. States that he hit his head on the nearby BP machine. Denied LOC, headache or pain in the area of the head that was hit. No visible bruising on exam. Neuro exam with no gross deficits except in LLE that was recently operated on. Currently obtunded so cannot assess. Head CT was ordered- no acute changes. Pt remained stable but currently with AMS in setting of chronic alcohol use. Other imaging as noted above. No further work-up planned during this hospital stay. TKA Pt is POD #6 s/p L TKA, following with ortho Stated to her previous provider that he did not hurt his left leg during the fall, notes it "gives out" all the time. Pain control, PT/OT Wound care per ortho Received Ancef perioperatively per protocol and was later placed on empiric Zosyn I don't see evidence of active infection at this time and will stop additional abx. He is doing well clinically. HTN elevated in setting of alcohol withdrawal cont current medications and treatment for ETOH withdrawal and noncompliance with oral and antihypertensives Continue home regimen including hydrochlorothiazide, losartan, metoprolol twice daily --BP improved after starting this back again this morning DMII-chronic, well controlled per recent A1C 5.8 in November 12. Cont current therapy Hyperlipidemia-chronic, stable, continue home medications CODE STATUS: Full code Diet: DMII DVT Prophylaxis: heparin Dispo: I would expect him to be stable for discharge to rehab in the next 1 to 2 days when delirium resolves.. I spent a total of 60minutes coordinating, documenting, and providing care for this patient excluding time spent in the performance of separately billed services Thank you for this consultation. We will follow the patient with you during their hospital stay. You can reach a member of the [facility] Hospitalist Team 13/12 via the hospitalist role on tiger text. Marsha Rivera DO [facility] and Anticipated Discharge Date Admission Date: January 15, 2023 Subjective 77 yo M presented for a right knee surgery on 01/13 with post operative course complicated by a fall on POD#1 with possible head injury and alcohol withdrawal symptoms that occurred later that evening. More delirium occurred overnight He remains delirious but is eating food today Denies any pain Review of Systems Review of Systems: Review of systems limited secondary to delirium. Physical Exam Physical Exam: CONSTITUTIONAL: WNWD, vitals as above, generally well-appearing, alert EYES: normal conjunctivae, no scleral icterus, ENT: external ear and nose normal, MMM NECK: trachea midline RESPIRATORY: clear to auscultation bilaterally, no crackles, rales or wheezes, normal respiratory effort CARDIOVASCULAR: regular rate and rhythm, S1 and 2 heard without murmurs, gallops or rubs, no JVD, no peripheral edema CHEST: inspection of chest was normal GASTROINTESTINAL: soft, ND, no guarding MUSCULOSKELETAL: Postop state to right knee. Otherwise, no focal deficits on musculoskeletal exam. SKIN: warm and dry, right knee surgical incision covered by clean, dry intact surgical dressing. NEUROLOGIC: no tremor, no gross focal deficits. Speech intact. PSYCHIATRIC: +delirium Results & Data Results & Data Vital Signs (Past 12 Hours) Vital Signs Temp Pulse Pulse Pulse Resp BP Pulse Ox 01/19/23 07:50 36.7 C 109 H 20 160/89 H 92 01/19/23 03:24 36.8 C 86 18 168/96 H 96 01/18/23 23:00 81 O2 Del Method 01/19/23 07:50 Room Air 01/19/23 03:24 Room Air 01/18/23 23:00 Laboratory Results [facility] 01/19/23 08:03 Sodium 142 Potassium 4.3 D Chloride 105 Carbon Dioxide 24 BUN 19 Creatinine 0.67 Glucose 100 H Calcium 9.6 Medications Administered Current Inpatient Medications Acetaminophen (Acetaminophen 325 Mg Tab) 650 mg PO TID [facility] Stop: 02/17/23 20:59 Last Admin: 01/19/23 14:04 Dose: 650 mg Al Hydrox/Mg Hydrox/Simethicone (Aluminum/Magnesium Susp 30 Ml Udc) 15 ml PO Q4H PRN PRN Reason: Heartburn Stop: 02/12/23 08:52 Amlodipine Besylate (Amlodipine Besylate 5 Mg Tab) 5 mg PO QAM [facility] Stop: 02/12/23 08:59 Last Admin: 01/19/23 10:05 Dose: 5 mg Baclofen (Baclofen 10 Mg Tab) 10 mg PO TID PRN PRN Reason: Muscle Spasm Stop: 02/12/23 08:56 Bisacodyl (Bisacodyl 10 Mg Supp) [address] DAILY PRN PRN Reason: Constipation Stop: 02/12/23 08:52 Celecoxib (Celebrex 200 Mg Cap) 200 mg PO BID [facility] Stop: 02/13/23 20:59 Last Admin: 01/19/23 10:08 Dose: 200 mg Clobetasol Propionate (Clobetasol Propionate 0.05% Oint 15 Gm Tube) 1 appln EXT DAILY PRN PRN Reason: Skin Irritation Stop: 02/12/23 10:35 Cyanocobalamin (Cyanocobalamin (B-12) 500 Mcg Tablet) 1,000 mcg PO QAM [facility] Stop: 02/12/23 08:59 Last Admin: 01/19/23 10:14 Dose: 1,000 mcg Dextrose (Dextrose 50% 50 Ml Syringe) 25 - 50 ml IV UD PRN; Protocol PRN Reason: Hypoglycemia Protocol Stop: 02/12/23 10:59 Docusate Sodium (Docusate Sodium 100 Mg Cap) 100 mg PO BID [facility] Stop: 02/12/23 08:59 Last Admin: 01/19/23 10:33 Dose: 100 mg Duloxetine HCl (Duloxetine Hcl 30 Mg Cap) 30 mg PO QAM [facility] Stop: 02/12/23 08:59 Last Admin: 01/19/23 10:13 Dose: 30 mg Famotidine (Famotidine 20 Mg Tab) 20 mg PO QPM [facility] Stop: 02/12/23 20:59 Last Admin: 01/18/23 21:02 Dose: Not Given Folic Acid (Folic Acid 1 Mg Tab) 1 mg PO QAM [facility] Stop: 02/14/23 08:59 Last Admin: 01/19/23 10:07 Dose: 1 mg Gabapentin (Gabapentin 600 Mg Tab) 600 mg PO QID [facility] Stop: 02/12/23 08:59 Last Admin: 01/19/23 17:46 Dose: 600 mg Glucagon (Glucagon For Inj 1 Mg Vial) 1 mg IM UD PRN; Protocol PRN Reason: Hypoglycemia Protocol Stop: 02/12/23 10:59 Glucose (Glucose 40% Gel 15 Gm Tube) 15 - 30 gm PO UD PRN; Protocol PRN Reason: Hypoglycemia Protocol Stop: 02/12/23 10:59 Glucose (Glucose 10 Tab/Tube) 4 - 8 tab PO UD PRN; Protocol PRN Reason: Hypoglycemia Protocol Stop: 02/12/23 10:59 Heparin Sodium (Porcine) (Heparin Sod 5,000 Unit/0.5 Ml Vial) 5,000 units SQ Q12 [facility] Stop: 02/14/23 11:28 Last Admin: 01/19/23 10:15 Dose: 5,000 units Hydrochlorothiazide (Hydrochlorothiazide 25 Mg Tab) 25 mg PO SuMoWeThFrSa@0900 [facility] Stop: 02/12/23 08:59 Last Admin: 01/19/23 11:14 Dose: 25 mg Hydromorphone HCl (Hydromorphone Inj 0.5 Mg/0.5 Ml Syr) 0.5 mg IV Q4H PRN PRN Reason: Pain or Pre PT Stop: 01/27/23 08:52 Lorazepam (Lorazepam 2 Mg/1 Ml Vial) 1 mg IV UD PRN; Protocol PRN Reason: EtOH Withdrawal AWSS Score 6+ Stop: 02/17/23 22:43 Losartan Potassium (Losartan Potassium 50 Mg Tab) 100 mg PO QAM [facility] Stop: 02/12/23 08:59 Last Admin: 01/19/23 10:12 Dose: 100 mg Magnesium Hydroxide (Magnesium Hydroxide Susp 30 Ml Udc) 30 ml PO Q6H PRN PRN Reason: Constipation Stop: 02/12/23 08:52 Metoprolol Tartrate (Metoprolol Tartrate 50 Mg Tab) 50 mg PO BID [facility] Stop: 02/12/23 08:59 Last Admin: 01/19/23 10:05 Dose: 50 mg Miscellaneous (Carbohydrates For Hypoglycemia ) 15 - 30 gm PO UD PRN PRN Reason: Hypoglycemia Treatment Stop: 02/12/23 10:59 Multivitamins (Multivitamin Tab) 1 tab PO QAM [facility] Stop: 02/12/23 08:59 Last Admin: 01/19/23 10:13 Dose: 1 tab Naloxone HCl (Naloxone Hcl 0.4 Mg/1 Ml Vial/Carp) 0.1 mg IV Q5M PRN PRN Reason: Oversedation/Resp Depression Stop: 02/12/23 08:52 Nitroglycerin (Nitroglycerin Sl 0.4 Mg/Tab Tab) 0.4 mg SL Q5M PRN PRN Reason: Chest Pain Stop: 02/12/23 08:56 Ondansetron HCl (Ondansetron Inj 2 Mg/Ml 2 Ml Vial) 4 mg IV Q6H PRN PRN Reason: Nausea And Vomiting Stop: 02/12/23 08:52 Oxycodone HCl (Oxycodone Hcl Ir 5 Mg Tab (Immediate Release)) 5 - 10 mg PO Q4H PRN PRN Reason: Pain or Pre PT Stop: 01/27/23 08:52 Last Admin: 01/14/23 22:54 Dose: 10 mg Rosuvastatin Calcium (Rosuvastatin Calcium 20 Mg Tab) 20 mg PO QAM [facility] Stop: 02/12/23 08:59 Last Admin: 01/19/23 10:07 Dose: 20 mg Sennosides (Senna 8.6 Mg Tab) 17.2 mg PO [facility] Stop: 02/12/23 20:59 Last Admin: 01/18/23 21:03 Dose: Not Given Tamsulosin HCl (Tamsulosin Hcl 0.4 Mg Cap) 0.4 mg PO QAM PRN PRN Reason: UNABLE to void Stop: 02/12/23 08:52 Thiamine HCl (Thiamine Hcl 100 Mg Tab) 100 mg PO QAM [facility] Stop: 02/18/23 08:59 Last Admin: 01/19/23 10:06 Dose: 100 mg
[2023-01-19] MEDS ORDERED: LORazepam 2 MG/1 ML VIAL IV PRN (09:48)
[2023-01-19] MEDS: amLODIPine BESYLATE 5 MG TAB PO SCH (10:05)
[2023-01-19] MEDS: METOPROLOL TARTRATE 50 MG TAB PO SCH ×2 (10:05→20:29)
[2023-01-19] MEDS: THIAMINE HCL 100 MG TAB PO SCH (10:06)
[2023-01-19] MEDS: ROSUVASTATIN CALCIUM 20 MG TAB PO SCH (10:07)
[2023-01-19] MEDS: FOLIC ACID 1 MG TAB PO SCH (10:07)
[2023-01-19] MEDS: CeleBREX 200 MG CAP PO SCH ×2 (10:08→20:28)
[2023-01-19] MEDS: LOSARTAN POTASSIUM 50 MG TAB PO SCH (10:12)
[2023-01-19] MEDS: DULoxetine HCL 30 MG CAP PO SCH (10:13)
[2023-01-19] MEDS: MULTIVITAMIN TAB PO SCH (10:13)
[2023-01-19] MEDS: CYANOCOBALAMIN (B-12) 500 MCG TABLET PO SCH (10:14)
[2023-01-19] MEDS: HEPARIN SOD 5,000 UNIT/0.5 ML VIAL SQ SCH ×2 (10:15→20:29)
--- NOTE | 2023-01-19 10:31 | Orthopedic Progress Note ---
Date of Service January 19, 2023 Assessment & Plan (1) S/P total knee arthroplasty: Plan: Patient is alert and oriented and joking during exam. He is in good spirits. He is POD #6 s/p LTKA by Dr Worthy Recommend he continue the physical therapy and Occupational Therapy. He was shown exercises to work on while lying in bed including heel slides for knee flexion quad sets and straight leg raises. Continue with utilizing ice over the knee as needed daily. Weightbearing as tolerated with walker assistance Pain control with p.o. medication DVT prophylaxis with MODESTA stockings and Heparin SQ upon discharge she can be transition to aspirin. He will need to be cleared by medicine service before discharge. Case management for placement With questions contact our clinic at [phone] Admission and Anticipated Discharge Date Admission Date: January 15, 2023 Subjective Patient is a 77 yo male who is status post a right total knee arthroplasty on 01/13 with postoperative course complicated by a fall and postop day 1 and withdrawal symptoms from alcohol. He was seen bedside this morning RN was present. He states he feels okay he has pain in his knee rated 56/10. He states he has pain with movement. He complains of difficulty bending the knee. He states he has not really done a lot of therapy but is looking at being [facility]. He denies any fever chills, chest pain or shortness of breath. He has been managing by medicine team for withdrawal symptoms. Review of Systems Review of Systems: Please refer to HPI Physical Exam Physical Exam: General: Patient is alert and oriented x3 he is pleasant and joking during his exam. Integumentary/musculoskeletal: Silverlon is clean dry and intact and left in place. Over the medial inferior portion of the leg under the Silverlon and just medial to it he has some erythema over this area. The dressing was slightly lifted and he has blistering that has opened. This area was cleansed with normal saline and gauze. This was then dried and placed a foam dressing over this area and laid the Silverlon dressing over this. No other areas of erythema or blistering. His dressing is dry otherwise. The incision that was visible over the inferior portion and this was normal in color and negative for any drainage. He is able to do knee range of motion with complaints of pain. He is able to get approximately -5 degrees extension and flex to approximately 45 degrees. He is able to do a straight leg raise without assistance. He is able to actively dorsiflex and plantarflex ankle. Sensation is intact over left lower extremity. His calf is soft and nontender. Left lower extremity is neurovascular intact. Results & Data Vital Signs (Past 12 Hours) Vital Signs Temp Pulse Pulse Pulse Resp BP Pulse Ox 01/19/23 07:50 36.7 C 109 H 20 160/89 H 92 01/19/23 03:24 36.8 C 86 18 168/96 H 96 01/18/23 23:00 81 O2 Del Method 01/19/23 07:50 Room Air 01/19/23 03:24 Room Air 01/18/23 23:00 Laboratory Results 01/19/23 01/19/23 01/18/23 Range/Units 08:03 07:31 20:28 POC Glucose 103 H 116 H (70-99) mg/dl Phosphorus 2.6 (2.5-4.9) mg/dl Hepatitis C Ab (EIA) (NON-REACTIVE) 01/18/23 01/18/23 01/16/23 Range/Units 16:23 10:56 06:37 POC Glucose 113 H 114 H (70-99) mg/dl Phosphorus (2.5-4.9) mg/dl Hepatitis C Ab (EIA) NON-REACTIVE (NON-REACTIVE) Diagnostic Findings Chest X-Ray 01/18/23 10:36 XR chest 1V portable CLINICAL HISTORY: new post op hypoxia COMPARISON STUDY: Chest CT July 16, 2017. Chest radiograph January 15, 2023. FINDINGS: Scoliosis hardware is incidentally noted. A 1.5 x 0.5 cm radiodensity projects over the mid neck. Lung volumes are normal. Lungs are clear. There is no pneumothorax or pleural effusion. Cardiac size is normal. Mediastinal contours are normal. There is no evidence for pulmonary edema. IMPRESSION: 1. No acute cardiopulmonary findings. 2. 1.5 x 0.5 cm radiodensity which projects over the mid neck. This may be on the patient however an ingested foreign body cannot be excluded. AP and lateral neck radiographs are recommended for further evaluation. ACT 112: Negative or not required by law. Electronically signed by: Hossein Mathur M.D. 01/18/2023 11:18 AM Cervical Spine X-Ray 01/18/23 11:45 CERVICAL SPINE 4 VIEWS CLINICAL HISTORY: Foreign body assessment. FINDINGS: AP, lateral, odontoid, and swimmer's views of the cervical spine are obtained. No prior studies are available for comparison at the time of dictation. The skeletal structures are osteopenic. There is no radiographic evidence of fracture or subluxation. Vertebral body height is maintained throughout the cervical spine. Alignment is preserved. Note that C6 and C7 are only seen on the swimmer's view. Anterior osteophytes are seen throughout. The spinolaminar line is intact. Fusion hardware is seen in the upper thoracic spine. The odontoid process and lateral masses appear intact as seen on the open-mouth view. The atlantodental articulation is maintained noting productive degenerative change. The spinous processes appear intact. There is moderate disc space narrowing at C5-C6 and C6-C7 with posterior disc osteophyte complexes at these levels. Multilevel facet arthropathy is observed. The prevertebral soft tissues are normal as visualized. No radiodense foreign body is seen. Apical lung parenchyma is clear as imaged. There is atherosclerotic calcification over the carotid bulbs. IMPRESSION: 1. No acute bony abnormality is seen involving the cervical spine. 2. Osteopenia and spondylotic change as above. 3. No radiodense foreign body is seen. Dictated: 01/18/2023 12:57 PM Transcribed: 01/18/2023 1:20 PM [place] [id number] [email or web address] [id number] Electronically signed by: Jean Marie Melton M.D. 01/18/2023 4:30 PM
[2023-01-19] MEDS: DOCUSATE SODIUM 100 MG CAP PO SCH ×2 (10:33→20:33)
[2023-01-19] MEDS: ACETAMINOPHEN 325 MG TAB PO SCH ×3 (10:33→20:27)
[2023-01-19 11:14] LABS: Calcium 9.6 mg/dl (8.6-10.3); Magnesium 2.2 mg/dl (1.7-2.4); Potassium 4.3 mmol/L (3.5-5.1)
[2023-01-19] MEDS: GABAPENTIN 600 MG TAB PO SCH ×4 (11:14→20:31)
[2023-01-19] MEDS: hydroCHLOROthiazide 25 MG TAB PO SCH (11:14)
[2023-01-19 11:18] LABS: BUN Creatinine Ratio 28.4 (10-20); Creatinine Clr Calc Pharmacy 90.7 ml/min; Est GFR (African American) 108.2 ml/min; Est GFR (Non-African American) 93.3 ml/min
[2023-01-19] MEDS ORDERED: LORazepam 2 MG/1 ML VIAL IV STA (19:43)
[2023-01-19] MEDS: FAMOTIDINE 20 MG TAB PO SCH (20:28)
[2023-01-19] MEDS: SENNA 8.6 MG TAB PO SCH (20:32)
[2023-01-20] MEDS ORDERED: chlordiazePOXIDE HCl 5 MG CAP PO SCH (06:00)
[2023-01-20] MEDS: GABAPENTIN 600 MG TAB PO SCH ×4 (09:06→21:23)
[2023-01-20] MEDS: ACETAMINOPHEN 325 MG TAB PO SCH ×3 (09:07→21:29)
--- NOTE | 2023-01-20 09:08 | Orthopedic Progress Note ---
Date of Service January 20, 2023 Assessment & Plan (1) S/P total knee arthroplasty: Plan: The patient was educated regarding today's findings. Conservative care measures were discussed. He was encouraged to continue with his range of motion exercises, including dangling over the side of the bed. Continue with PT/OT. Anticipate discharge to [facility]. Authorization has already been obtained from the insurance. Awaiting medical input to decide if he can go today or tomorrow. Vitals have been relatively stable over the last 24 hours. He has remained mildly hypertensive. He currently has no tremors and is not exhibiting any signs of alcohol withdrawal. Continue using his walker when weightbearing. Pain control with p.o. medication DVT prophylaxis with MODESTA stockings and Heparin SQ. Upon discharge he can be transitioned to aspirin. Follow-up in the office is scheduled for staple removal. Admission and Anticipated Discharge Date Admission Date: January 15, 2023 Subjective This 77-year-old male is seen today in his room. He is postop day 7 from left total knee arthroplasty. He states he is doing okay today. He does have pain in the knee with motion. He is also complaining of pain in his thigh, in the area of his surgical tourniquet. He denies any chest pain or shortness of breath. No nausea or vomiting. He is conversive today. No other complaints. He is wondering when he is getting out of the hospital. Physical Exam Physical Exam: General: Well-developed, well-nourished, elderly male, in no acute distress. Laying in bed. Alert and oriented. Skin: Warm and dry with good turgor. No rashes. He has a Silverlon dressing in place on the left knee. Expected postoperative edema. No ecchymosis. No erythema. No drainage. Musculoskeletal: The patient has full terminal extension. Flexion to around 60 degrees passively and actively. He has soreness with palpation circumferentially around the proximal thigh, in the area of his tourniquet. Intact motor function of the ankle and toes. Neurologic: Gross sensation is intact across the left leg by soft touch. Pulses are 2+. Results & Data Vital Signs (Past 12 Hours) Vital Signs Temp Pulse Pulse Resp BP Pulse Ox O2 Del Method 01/20/23 07:44 36.6 C 71 18 161/73 H 96 Room Air 01/20/23 04:07 36.4 C L 69 18 165/73 H 98 Room Air 01/20/23 03:09 Room Air 01/19/23 23:17 36.5 C 59 L 18 155/74 H 93 Room Air Laboratory Results Glucose obtained this morning was 96.
[2023-01-20] MEDS: MULTIVITAMIN TAB PO SCH (09:09)
[2023-01-20] MEDS: CYANOCOBALAMIN (B-12) 500 MCG TABLET PO SCH (09:09)
[2023-01-20] MEDS: LOSARTAN POTASSIUM 50 MG TAB PO SCH (09:09)
[2023-01-20] MEDS: DULoxetine HCL 30 MG CAP PO SCH (09:10)
[2023-01-20] MEDS: ROSUVASTATIN CALCIUM 20 MG TAB PO SCH (09:10)
[2023-01-20] MEDS: CeleBREX 200 MG CAP PO SCH ×2 (09:10→21:23)
[2023-01-20] MEDS: amLODIPine BESYLATE 5 MG TAB PO SCH (09:10)
[2023-01-20] MEDS: oxyCODONE HCL IR 5 MG TAB (IMMEDIATE RELEASE) PO PRN ×2 (09:11→21:26)
[2023-01-20] MEDS: hydroCHLOROthiazide 25 MG TAB PO SCH (09:13)
[2023-01-20] MEDS: THIAMINE HCL 100 MG TAB PO SCH (09:13)
[2023-01-20] MEDS: HEPARIN SOD 5,000 UNIT/0.5 ML VIAL SQ SCH ×2 (09:14→21:25)
[2023-01-20] MEDS: FOLIC ACID 1 MG TAB PO SCH (09:15)
[2023-01-20] MEDS: METOPROLOL TARTRATE 50 MG TAB PO SCH ×2 (09:15→21:23)
[2023-01-20] MEDS: DOCUSATE SODIUM 100 MG CAP PO SCH ×2 (09:17→21:25)
--- NOTE | 2023-01-20 20:49 | Hospitalist Progress Note ---
Date of Service January 20, 2023 Assessment & Plan (1) S/P total knee arthroplasty: (2) Alcohol withdrawal delirium: (3) Head injury: (4) Fall: (5) HTN (hypertension): Plan Pt is a 77yoM with PMhx significant for HTN, DMII, HLD, chronic pain, ED admitted for L TKA done on 01/13/2023. The hospitalist service was consulted after a fall with a possible head injury. POD#7 Alcohol withdrawal delirium On AWSS protocol with Ativan and Librium. PRN zyprexa ordered as well. Off restraints, and continues to receive as needed Ativan CT head on 01/13- with no acute change or fracture, MRI brain noted possible brain aneurysm, CTA head notes 8x8mm ALEX aneurysm. Recommend outpatient follow- up with neurosurgery. Delirium appeared to resolve but came back again overnight. Continue supportive care. He is tolerating p.o. There are no focal neurologic deficits therefore do not believe a repeat head CT is necessary at this time. post operative Fall/Head injury Per pt when he was alert and oriented, he was not wearing socks when he fell. Slipped while trying to get out of bed. States that he hit his head on the nearby BP machine. Denied LOC, headache or pain in the area of the head that was hit. No visible bruising on exam. Neuro exam with no gross deficits at that time except in LLE that was recently operated on. Head CT was ordered- no acute changes. Pt remained stable but currently with AMS in setting of chronic alcohol use. Other imaging as noted above. No further work-up planned during this hospital stay. TKA Pt is POD #7 s/p L TKA, following with ortho Stated to previous provider that he did not hurt his left leg during the fall, notes it "gives out" all the time. Pain control, PT/OT Wound care per ortho Received Ancef perioperatively per protocol and was later placed on empiric Z osyn No evidence of active infection at this time and will stop additional abx. He is doing well clinically. HTN elevated in setting of alcohol withdrawal cont current medications and treatment for ETOH withdrawal and noncompliance with oral and antihypertensives Continue home regimen including hydrochlorothiazide, losartan, metoprolol twice daily --BP improved after starting this back again this morning DMII-chronic, well controlled per recent A1C 5.8 in November 12. Cont current therapy Hyperlipidemia-chronic, stable, continue home medications CODE STATUS: Full code Diet: DMII DVT Prophylaxis: heparin Dispo: Awaiting discharge to rehab in the next 1 to 2 days. Thank you for this consultation. We will follow the patient with you during their hospital stay. You can reach a member of the [facility] Hospitalist Team 13/12 via the hospitalist role on tiger text. Admission and Anticipated Discharge Date Admission Date: January 15, 2023 Subjective Pt seen this AM. AAOx3. Parmjit. States he does not drink as much as everyone is making it out to be but has beer about 4 times a week. Awaiting placement. Review of Systems Review of Systems: All systems reviewed & are unremarkable except as noted in Subjective Physical Exam Physical Exam: General: Sitting in chair at bedside Psych: AAOx3 Neuro: notes left knee pain HEENT: NC/AT CV: RRR, Normal s1, s2. Resp: no increased effort of breathing. Abdomen: Soft Results & Data Results & Data Vital Signs (Past 12 Hours) Vital Signs Temp Pulse Pulse Resp BP Pulse Ox O2 Del Method 01/20/23 11:49 36.7 C 96 H 18 117/71 97 Room Air 01/20/23 07:44 36.6 C 71 18 161/73 H 96 Room Air 01/20/23 04:07 36.4 C L 69 18 165/73 H 98 Room Air 01/20/23 03:09 Room Air
[2023-01-20] MEDS: FAMOTIDINE 20 MG TAB PO SCH (21:23)
[2023-01-20] MEDS: SENNA 8.6 MG TAB PO SCH (21:25)
[2023-01-21] MEDS: oxyCODONE HCL IR 5 MG TAB (IMMEDIATE RELEASE) PO PRN (07:32)
[2023-01-21] MEDS: CYANOCOBALAMIN (B-12) 500 MCG TABLET PO SCH (09:11)
[2023-01-21] MEDS: GABAPENTIN 600 MG TAB PO SCH ×4 (09:11→20:25)
[2023-01-21] MEDS: METOPROLOL TARTRATE 50 MG TAB PO SCH ×2 (09:11→20:30)
[2023-01-21] MEDS: ACETAMINOPHEN 325 MG TAB PO SCH ×3 (09:11→20:30)
[2023-01-21] MEDS: FOLIC ACID 1 MG TAB PO SCH (09:11)
[2023-01-21] MEDS: hydroCHLOROthiazide 25 MG TAB PO SCH (09:11)
[2023-01-21] MEDS: CeleBREX 200 MG CAP PO SCH ×2 (09:11→20:22)
[2023-01-21] MEDS: DULoxetine HCL 30 MG CAP PO SCH (09:11)
[2023-01-21] MEDS: MULTIVITAMIN TAB PO SCH (09:11)
[2023-01-21] MEDS: LOSARTAN POTASSIUM 50 MG TAB PO SCH (09:11)
[2023-01-21] MEDS: amLODIPine BESYLATE 5 MG TAB PO SCH (09:11)
[2023-01-21] MEDS: THIAMINE HCL 100 MG TAB PO SCH (09:11)
[2023-01-21] MEDS: ROSUVASTATIN CALCIUM 20 MG TAB PO SCH (09:12)
[2023-01-21] MEDS: HEPARIN SOD 5,000 UNIT/0.5 ML VIAL SQ SCH ×2 (09:14→20:31)
[2023-01-21] MEDS: DOCUSATE SODIUM 100 MG CAP PO SCH ×2 (10:10→20:25)
--- NOTE | 2023-01-21 10:15 | Orthopedic Progress Note ---
Date of Service January 21, 2023 Assessment & Plan (1) S/P total knee arthroplasty: Plan: The patient was educated regarding today's findings. Conservative care measures were discussed. He was encouraged to continue with his range of motion exercises, including dangling over the side of the bed. Continue with PT/OT. Anticipate discharge to [facility]. Authorization has already been obtained from the insurance. Awaiting medical input to decide if he can go today or tomorrow. Vitals have been relatively stable over the last 24 hours. He has remained mildly hypertensive. He currently has no tremors and is not exhibiting any signs of alcohol withdrawal. Continue using his walker when weightbearing. Pain control with p.o. medication DVT prophylaxis with MODESTA stockings and Heparin SQ. Upon discharge he can be transitioned to aspirin. Follow-up in the office is scheduled for dressing. Admission and Anticipated Discharge Date Admission Date: January 15, 2023 Subjective This 77-year-old male is seen 8 days status post left total knee arthroplasty. He is awake partially dressed sitting on the edge of his bed holding his cane. States he does have some knee pain but is very bearable. He states that he has discussed being discharged to [facility] with case management but is not sure when that is going to happen. He is under the understanding that the medicine service will have to clear him before he can be transferred there for rehab. Otherwise he is doing well. He has no complaints of chest pain, shortness of breath, fever, chills, sweats, lethargy, numbness or tingling in the left lower extremity. He also denies nausea, vomiting, diarrhea or difficulty voiding. Review of Systems Review of Systems: Please refer to HPI Physical Exam Physical Exam: Left knee: Umang is clean dry and intact and left in place. He does have some mild edema about the knee but no erythema, ecchymosis or significant effusi on. Able to move digits in left LE. He is neurovascularly intact in the left lower extremity. Active knee range of motion is from 8 degrees of extension to about 110 degrees of flexion. He is able to perform an active straight leg raise test and actively dorsi and plantarflex foot without issue. He was advised to be in the knee immobilizer when he is ambulatory. Results & Data Vital Signs (Past 12 Hours) Vital Signs Temp Pulse Resp BP Pulse Ox O2 Del Method 01/21/23 08:31 36.5 C 90 16 157/76 H 97 Room Air Diagnostic Findings Laboratory Results WBC 7.29 K/ul (4.8-10.8) 01/18/23 06:30 RBC 4.34 M/uL (4.70-6.10) L 01/18/23 06:30 Hgb 12.9 g/dl (14.0-18.0) L 01/18/23 06:30 Hct 37.4 % (42.0-52.0) L 01/18/23 06:30 MCV 86.2 fL (80.0-100.0) 01/18/23 06:30 MCH 29.7 pg (25.0-34.0) 01/18/23 06:30 MCHC 34.5 g/dL (32.0-36.0) 01/18/23 06:30 RDW Std Deviation 43.7 fL (36.4-46.3) 01/18/23 06:30 RDW Coeff of Art 13.8 % (11.5-14.5) 01/18/23 06:30 Plt Count 295 K/uL (130-400) 01/18/23 06:30 MPV 10.5 fL (9.4-12.4) 01/18/23 06:30 Immature Gran % (Auto) 0.6 % 01/17/23 05:58 Neut % (Auto) 77.6 % 01/17/23 05:58 Lymph % (Auto) 7.9 % 01/17/23 05:58 [place] % (Auto) 12.8 % 01/17/23 05:58 Eos % (Auto) 0.8 % 01/17/23 05:58 Baso % (Auto) 0.3 % 01/17/23 05:58 Neut # (Auto) 6.74 K/uL (1.40-6.50) H 01/17/23 05:58 Lymph # (Auto) 0.69 K/uL (1.20-3.40) L 01/17/23 05:58 [place] # (Auto) 1.11 K/uL (0.11-0.59) H 01/17/23 05:58 Eos # (Auto) 0.07 K/uL (0.00-0.50) 01/17/23 05:58 Baso # (Auto) 0.03 K/uL (0.00-0.20) 01/17/23 05:58 Immature Gran # (Auto) 0.05 K/uL (0.01-0.20) 01/17/23 05:58 Sodium 142 mmol/L (136-145) 01/19/23 08:03 Potassium 4.3 mmol/L (3.5-5.1) D 01/19/23 08:03 Chloride 105 mmol/L (98-107) 01/19/23 08:03 Carbon Dioxide 24 mmol/L (21-32) 01/19/23 08:03 Anion Gap 13 (3-11) H 01/19/23 08:03 BUN 19 mg/dl (6-23) 01/19/23 08:03 Creatinine 0.67 mg/dl (0.6-1.4) 01/19/23 08:03 Est Cr Clr Drug Dosing 90.7 ml/min 01/19/23 08:03 Est GFR ( Amer) 108.2 ml/min 01/19/23 08:03 Est GFR (Non-Af Amer) 93.3 ml/min 01/19/23 08:03 BUN/Creatinine Ratio 28.4 (10-20) H 01/19/23 08:03 Glucose 100 mg/dl (70-99(Fasting)) H 01/19/23 08:03 POC Glucose 112 mg/dl (70-99) H 01/21/23 07:50 Estimat Average Glucose 120 mg/dl 01/14/23 08:31 Hemoglobin A1c 5.8 % (4.5-5.6) H 01/14/23 08:31 Calcium 9.6 mg/dl (8.6-10.3) 01/19/23 08:03 Phosphorus 2.6 mg/dl (2.5-4.9) 01/19/23 08:03 Magnesium 2.2 mg/dl (1.7-2.4) 01/19/23 08:03 Total Bilirubin 1.4 mg/dl (0.2-1.0) H 01/16/23 20:43 Direct Bilirubin 0.2 mg/dl (0-0.2) 01/16/23 20:43 AST 14 U/L (13-39) 01/16/23 20:43 ALT 9 U/L (7-52) 01/16/23 20:43 Alkaline Phosphatase 50 U/L (34-104) 01/16/23 20:43 Total Protein 6.5 gm/dl (6.0-8.3) 01/16/23 20:43 Albumin 3.7 gm/dl (3.4-5.0) 01/16/23 20:43 Hepatitis C Ab (EIA) NON-REACTIVE (NON-REACTIVE) 01/16/23 06:37 Blood Type B Positive 01/13/23 06:02 Antibody Screen NEGATIVE 01/13/23 06:02 Impressions Knee X-Ray 01/13/23 08:53 XR knee LT 1 or 2V routine CLINICAL HISTORY: Surgical Post Op COMPARISON: Left knee radiographs December 28, 2022. FINDINGS: Left knee arthroplasty with polyethylene tibial component is noted. No periprosthetic fracture is noted. There are no unexpected radiopaque foreign bodies. IMPRESSION: Expected findings following left knee arthroplasty. ACT 112: Negative or not required by law. Electronically signed by: Hossein Mathur M.D. 01/13/2023 9:31 AM Pelvis X-Ray 01/13/23 16:02 XR pelvis 1-2V routine HISTORY: 77 years-old Male patient fell acute pelvic pain status post fall COMPARISON: CT 07/16/2017 TECHNIQUE: AP view the pelvis FINDINGS: Partially imaged hardware of the lumbosacral spine with iliac bones. Moderate left and severe right hip osteoarthritis. No acute fracture, dislocation or suspicious bone lesion identified. IMPRESSION: 1. No acute fracture or dislocation. 2. Severe right hip osteoarthritis. ACT 112: Negative or not required by law. The above report was generated using voice recognition software. It may contain grammatical, syntax or spelling errors. Electronically signed by: Antonio Robbins M.D. 01/13/2023 5:[address] 01/13/23 17:22 CT head/brain wo con CLINICAL HISTORY: 77 years-old Male with s/p fall and hit head post op. Acute head injury status post fall TECHNIQUE: Multiple axial CT images of the head were obtained without contrast. A dose lowering technique was utilized adhering to the principles of ALARA. CT DOSE: 625.80 mGy.cm COMPARISON: None. FINDINGS: No acute intracranial hemorrhage, midline shift, intracranial mass, hydrocephalus, territorial ischemia or abnormal extra-axial collection. Involutional changes with chronic microvascular ischemic disease. Cerebrovascular calcifications. The calvarium is intact. Mild mucosal thickening of the ethmoid air cells. The mastoid air cells are clear. IMPRESSION: No acute intracranial abnormality or calvarial fracture. ACT 112: Negative or not required by law. The above report was generated using voice recognition software. It may contain grammatical, syntax or spelling errors. Electronically signed by: Antonio Robbins M.D. 01/13/2023 6:56 PM Brain MRI 01/15/23 08:11 MRI OF THE BRAIN WITHOUT AND WITH IV CONTRAST CLINICAL HISTORY: Altered mental status. COMPARISON STUDY: Head CT January 13, 2023. TECHNIQUE: Utilizing a 1.5 Jyoti magnet and dedicated coil, multiplanar, multiecho imaging of the brain was performed pre and postcontrast administration. IV administration of 8 mL of Gadavist contrast was uneventful. FINDINGS: There are no foci of restricted diffusion to suggest acute infarct. No acute intracranial hemorrhage, midline shift or mass effect is present. Ventricular system is unremarkable. Basal cisterns are patent. Flow-voids for the major intracranial vessels are present. There is a 7 mm round flow void adjacent to the anterior cerebral arteries on axial T2-weighted sequence image 13 of . Otherwise, flow-voids are unremarkable. There is no intracranial mass or pathologic enhancement. Mild white matter T2 hyperintense foci suggest minimal small vessel disease. IMPRESSION: 1. No acute intracranial findings. 2. Suspected intracranial aneurysm, measuring approximately 7 mm, possibly a rising from the anterior communicating artery. Nonemergent CTA of the head is recommended for further evaluation. 3. No intracranial mass or pathologic enhancement. ACT 112: Positive. There are findings on this exam that require communication between the performing entity and the patient following Patient Test Result Information Act ([place] Act 112) guidelines. Electronically signed by: Hossein Mathur M.D. 01/15/2023 6:43 PM KUB X-Ray 01/15/23 09:31 KUB CLINICAL HISTORY: for MRI clearance COMPARISON STUDY: CT of the abdomen and pelvis July 16, 2017. KUB July 17, 2017. FINDINGS: Scoliosis hardware is incidentally noted. No unexpected radiopaque foreign bodies within the abdomen or pelvis are present. There is no evidence for a bowel obstruction. IMPRESSION: No contraindication to MRI within the abdomen or pelvis. ACT 112: Negative or not required by law. Electronically signed by: Hossein Mathur M.D. 01/15/2023 11:53 AM Head CTA 01/16/23 13:17 HEAD CTA HISTORY: followup brain MRI, possible aneurysm, altered mental status TECHNIQUE: Multiaxial CT images of the head were performed both before and after the intravenous administration of contrast to evaluate the major cerebral vessels. 3D/MIP images were also obtained. Sagittal and coronal reformats were reviewed. A dose lowering technique was utilized adhering to the principles of ALARA. COMPARISON: Brain MRI 01/15/2023. FINDINGS: Motion artifact. The paranasal sinuses and mastoid air cells are clear. There is no mass, hematoma, midline shift, acute infarct. Mild atrophy and microvascular ischemic changes are again noted. Mild to moderate calcified plaque within the bilateral carotid siphons. There is mild multifocal stenosis within the left carotid siphon due to the calcified plaque. The distal vertebral arteries and basilar artery show no significant stenosis or occlusion. The bilateral MCAs and test administrator show no significant stenosis, occlusion, or aneurysm. The bilateral ACAs are widely patent. 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 IMPRESSION: 1. No acute infarct or intracranial hemorrhage. 2. No significant stenosis or occlusion within the [place]. 3. 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 ACT 112: Negative or not required by law. Electronically signed by: Pavan Parekh M.D. 01/16/2023 2:34 PM Chest X-Ray 01/18/23 10:36 XR chest 1V portable CLINICAL HISTORY: new post op hypoxia COMPARISON STUDY: Chest CT July 16, 2017. Chest radiograph January 15, 2023. FINDINGS: Scoliosis hardware is incidentally noted. A 1.5 x 0.5 cm radiodensity projects over the mid neck. Lung volumes are normal. Lungs are clear. There is no pneumothorax or pleural effusion. Cardiac size is normal. Mediastinal contours are normal. There is no evidence for pulmonary edema. IMPRESSION: 1. No acute cardiopulmonary findings. 2. 1.5 x 0.5 cm radiodensity which projects over the mid neck. This may be on the patient however an ingested foreign body cannot be excluded. AP and lateral neck radiographs are recommended for further evaluation. ACT 112: Negative or not required by law. Electronically signed by: Hossein Mathur M.D. 01/18/2023 11:18 AM Cervical Spine X-Ray 01/18/23 11:45 CERVICAL SPINE 4 VIEWS CLINICAL HISTORY: Foreign body assessment. FINDINGS: AP, lateral, odontoid, and swimmer's views of the cervical spine are o btained. No prior studies are available for comparison at the time of dictation. The skeletal structures are osteopenic. There is no radiographic evidence of fracture or subluxation. Vertebral body height is maintained throughout the cervical spine. Alignment is preserved. Note that C6 and C7 are only seen on the swimmer's view. Anterior osteophytes are seen throughout. The spinolaminar line is intact. Fusion hardware is seen in the upper thoracic spine. The odontoid process and lateral masses appear intact as seen on the open-mouth view. The atlantodental articulation is maintained noting productive degenerative change. The spinous processes appear intact. There is moderate disc space narrowing at C5-C6 and C6-C7 with posterior disc osteophyte complexes at these levels. Multilevel facet arthropathy is observed. The prevertebral soft tissues are normal as visualized. No radiodense foreign body is seen. Apical lung parenchyma is clear as imaged. There is atherosclerotic calcification over the carotid bulbs. IMPRESSION: 1. No acute bony abnormality is seen involving the cervical spine. 2. Osteopenia and spondylotic change as above. 3. No radiodense foreign body is seen. Dictated: 01/18/2023 12:57 PM Transcribed: 01/18/2023 1:20 PM [place] [id number] [email or web address] [id number] Electronically signed by: Jean Marie Melton M.D. 01/18/2023 4:30 PM
--- NOTE | 2023-01-21 15:03 | Hospitalist Progress Note ---
Date of Service January 21, 2023 Assessment & Plan (1) S/P total knee arthroplasty: (2) Alcohol withdrawal delirium: (3) Head injury: (4) Fall: (5) HTN (hypertension): Plan Pt is a 77yoM with PMhx significant for HTN, DMII, HLD, chronic pain, ED admitted for L TKA done on 01/13/2023. The hospitalist service was consulted after a fall following surgery with a possible head injury. Surgery on 01/13/2023 TKA TKA on 01/13/2023 following with ortho Stated to previous provider that he did not hurt his left leg during the fall, notes it "gives out" all the time. Pain control, PT/OT Wound care per ortho Received Ancef perioperatively per protocol and was later placed on empiric Zosyn No evidence of active infection at this time and will stop additional abx. He is doing well clinically. We will need to go to rehab-no bed available till Tuesday Post operative Fall/Head injury Per pt when he was alert and oriented, he was not wearing socks when he fell. Slipped while trying to get out of bed. States that he hit his head on the nearby BP machine. Denied LOC, headache or pain in the area of the head that was hit. No visible bruising on exam. Neuro exam with no gross deficits at that time except in LLE that was recently operated on. Head CT was ordered- no acute changes. Pt remained stable but currently with AMS in setting of chronic alcohol use. Other imaging as noted above. No further work-up planned during this hospital stay. Alcohol withdrawal delirium On AWSS protocol with Ativan and Librium. PRN zyprexa ordered as well. Off restraints, and continues to receive as needed Ativan CT head on 01/13- with no acute change or fracture, MRI brain noted possible brain aneurysm, CTA head notes 8x8mm ALEX aneurysm. Recommend outpatient follow- up with neurosurgery. Delirium appeared to resolve but came back again overnight. Continue supportive care. He is tolerating p.o. There are no focal neurologic deficits therefore do not believe a repeat head CT is necessary at this time. Remains medically stable HTN elevated in setting of alcohol withdrawal cont current medications and treatment for ETOH withdrawal and noncompliance wit h oral and antihypertensives Continue home regimen including hydrochlorothiazide, losartan, metoprolol twice daily --BP improved after starting this back again this morning No issues with blood pressure DMII-chronic, well controlled per recent A1C 5.8 in November 12. Cont current therapy Hyperlipidemia-chronic, stable, continue home medications CODE STATUS: Full code Diet: DMII DVT Prophylaxis: heparin Dispo: Awaiting discharge to rehab Admission and Anticipated Discharge Date Admission Date: January 15, 2023 Subjective 01/21/2023 The patient was seen and examined in medical floor He is a status post left total knee arthroplasty Complains pain in the left knee and has been getting physical therapy Awaiting placement to go to rehab Review of Systems Review of Systems: All systems reviewed and are unremarkable except as noted below Physical Exam Physical Exam: Sitting on a chair without any acute distress Constitutional: well developed, well nourished, + ill appearing and average body habitus Eyes: PERRL, conjunctivae normal, anicteric sclerae ENMT: external ear and nose normal, oropharynx normal Neck: trachea midline, no thyromegaly Respiratory: no respiratory distress Auscultation: lungs clear to auscultation bilaterally Cardiovascular: Rate/Rhythm: regular rate and regular rhythm Heart Sounds: normal S1 and normal S2; no murmur Gastrointestinal (Abdomen): Inspection/Auscultation: abdomen not distended Percussion/Palpation: abdomen soft; abdomen nontender Musculoskeletal: Acute pain involving the left knee Neurologic: normal touch/pain/proprioception and moves all extremities; no focal motor deficits Psychiatric: A+Ox3, euthymic affect Lymphatic: no cervical or axillary lymphadenopathy Results & Data Results & Data Vital Signs (Past 12 Hours) Vital Signs Temp Pulse Resp BP BP Pulse Ox O2 Del Method 01/21/23 14:33 36.3 C L 66 17 104/62 99 Room Air 01/21/23 08:31 36.5 C 90 16 157/76 H 97 Room Air Medications Administered Current Inpatient Medications Acetaminophen (Acetaminophen 325 Mg Tab) 650 mg PO TID KALI Stop: 02/17/23 20:59 Last Admin: 01/21/23 13:42 Dose: 650 mg Al Hydrox/Mg Hydrox/Simethicone (Aluminum/Magnesium Susp 30 Ml Udc) 15 ml PO Q4H PRN PRN Reason: Heartburn Stop: 02/12/23 08:52 Amlodipine Besylate (Amlodipine Besylate 5 Mg Tab) 5 mg PO QAM KALI Stop: 02/12/23 08:59 Last Admin: 01/21/23 09:11 Dose: 5 mg Bisacodyl (Bisacodyl 10 Mg Supp) 10 mg DC DAILY PRN PRN Reason: Constipation Stop: 02/12/23 08:52 Celecoxib (Celebrex 200 Mg Cap) 200 mg PO BID KALI Stop: 02/13/23 20:59 Last Admin: 01/21/23 09:11 Dose: 200 mg Cyanocobalamin (Cyanocobalamin (B-12) 500 Mcg Tablet) 1,000 mcg PO QAM KALI Stop: 02/12/23 08:59 Last Admin: 01/21/23 09:11 Dose: 1,000 mcg Dextrose (Dextrose 50% 50 Ml Syringe) 25 - 50 ml IV UD PRN; Protocol PRN Reason: Hypoglycemia Protocol Stop: 02/12/23 10:59 Docusate Sodium (Docusate Sodium 100 Mg Cap) 100 mg PO BID [facility] Stop: 02/12/23 08:59 Last Admin: 01/21/23 10:10 Dose: Not Given Duloxetine HCl (Duloxetine Hcl 30 Mg Cap) 30 mg PO QAM KALI Stop: 02/12/23 08:59 Last Admin: 01/21/23 09:11 Dose: 30 mg Famotidine (Famotidine 20 Mg Tab) 20 mg PO QPM KALI Stop: 02/12/23 20:59 Last Admin: 01/20/23 21:23 Dose: 20 mg Folic Acid (Folic Acid 1 Mg Tab) 1 mg PO QAM [facility] Stop: 02/14/23 08:59 Last Admin: 01/21/23 09:11 Dose: 1 mg Gabapentin (Gabapentin 600 Mg Tab) 600 mg PO QID KALI Stop: 02/12/23 08:59 Last Admin: 01/21/23 12:38 Dose: 600 mg Glucagon (Glucagon For Inj 1 Mg Vial) 1 mg IM UD PRN; Protocol PRN Reason: Hypoglycemia Protocol Stop: 02/12/23 10:59 Glucose (Glucose 40% Gel 15 Gm Tube) 15 - 30 gm PO UD PRN; Protocol PRN Reason: Hypoglycemia Protocol Stop: 02/12/23 10:59 Glucose (Glucose 10 Tab/Tube) 4 - 8 tab PO UD PRN; Protocol PRN Reason: Hypoglycemia Protocol Stop: 02/12/23 10:59 Heparin Sodium (Porcine) (Heparin Sod 5,000 Unit/0.5 Ml Vial) 5,000 units SQ Q12 [facility] Stop: 02/14/23 11:28 Last Admin: 01/21/23 09:14 Dose: 5,000 units Hydrochlorothiazide (Hydrochlorothiazide 25 Mg Tab) 25 mg PO [id number] [facility] Stop: 02/12/23 08:59 Last Admin: 01/21/23 09:11 Dose: 25 mg Hydromorphone HCl (Hydromorphone Inj 0.5 Mg/0.5 Ml Syr) 0.5 mg IV Q4H PRN PRN Reason: Pain or Pre PT Stop: 01/27/23 08:52 Lorazepam (Lorazepam 2 Mg/1 Ml Vial) 1 mg IV UD PRN; Protocol PRN Reason: EtOH Withdrawal AWSS Score 6+ Stop: 02/17/23 22:43 Losartan Potassium (Losartan Potassium 50 Mg Tab) 100 mg PO QAM [facility] Stop: 02/12/23 08:59 Last Admin: 01/21/23 09:11 Dose: 100 mg Magnesium Hydroxide (Magnesium Hydroxide Susp 30 Ml Udc) 30 ml PO Q6H PRN PRN Reason: Constipation Stop: 02/12/23 08:52 Metoprolol Tartrate (Metoprolol Tartrate 50 Mg Tab) 50 mg PO BID [facility] Stop: 02/12/23 08:59 Last Admin: 01/21/23 09:11 Dose: 50 mg Miscellaneous (Carbohydrates For Hypoglycemia ) 15 - 30 gm PO UD PRN PRN Reason: Hypoglycemia Treatment Stop: 02/12/23 10:59 Multivitamins (Multivitamin Tab) 1 tab PO [facility] Stop: 02/12/23 08:59 Last Admin: 01/21/23 09:11 Dose: 1 tab Naloxone HCl (Naloxone Hcl 0.4 Mg/1 Ml Vial/Carp) 0.1 mg IV Q5M PRN PRN Reason: Oversedation/Resp Depression Stop: 02/12/23 08:52 Nitroglycerin (Nitroglycerin Sl 0.4 Mg/Tab Tab) 0.4 mg SL Q5M PRN PRN Reason: Chest Pain Stop: 02/12/23 08:56 Ondansetron HCl (Ondansetron Inj 2 Mg/Ml 2 Ml Vial) 4 mg IV Q6H PRN PRN Reason: Nausea And Vomiting Stop: 02/12/23 08:52 Oxycodone HCl (Oxycodone Hcl Ir 5 Mg Tab (Immediate Release)) 5 - 10 mg PO Q4H PRN PRN Reason: Pain or Pre PT Stop: 01/27/23 08:52 Last Admin: 01/21/23 07:32 Dose: 10 mg Rosuvastatin Calcium (Rosuvastatin Calcium 20 Mg Tab) 20 mg PO QAM [facility]ALI Stop: 02/12/23 08:59 Last Admin: 01/21/23 09:12 Dose: 20 mg Sennosides (Senna 8.6 Mg Tab) 17.2 mg PO [facility] Stop: 02/12/23 20:59 Last Admin: 01/20/23 21:25 Dose: Not Given Tamsulosin HCl (Tamsulosin Hcl 0.4 Mg Cap) 0.4 mg PO QAM PRN PRN Reason: UNABLE to void Stop: 02/12/23 08:52 Thiamine HCl (Thiamine Hcl 100 Mg Tab) 100 mg PO QAM KALI Stop: 02/18/23 08:59 Last Admin: 01/21/23 09:11 Dose: 100 mg
[2023-01-21] MEDS: SENNA 8.6 MG TAB PO SCH (20:25)
[2023-01-21] MEDS: FAMOTIDINE 20 MG TAB PO SCH (20:31)
[2023-01-22] MEDS: oxyCODONE HCL IR 5 MG TAB (IMMEDIATE RELEASE) PO PRN ×2 (03:33→19:12)
[2023-01-22] MEDS: CeleBREX 200 MG CAP PO SCH ×2 (08:59→20:53)
[2023-01-22] MEDS: THIAMINE HCL 100 MG TAB PO SCH (08:59)
[2023-01-22] MEDS: DULoxetine HCL 30 MG CAP PO SCH (08:59)
[2023-01-22] MEDS: CYANOCOBALAMIN (B-12) 500 MCG TABLET PO SCH (08:59)
[2023-01-22] MEDS: FOLIC ACID 1 MG TAB PO SCH (09:00)
[2023-01-22] MEDS: ROSUVASTATIN CALCIUM 20 MG TAB PO SCH (09:00)
[2023-01-22] MEDS: hydroCHLOROthiazide 25 MG TAB PO SCH (09:00)
[2023-01-22] MEDS: METOPROLOL TARTRATE 50 MG TAB PO SCH ×2 (09:00→20:53)
[2023-01-22] MEDS: MULTIVITAMIN TAB PO SCH (09:00)
[2023-01-22] MEDS: HEPARIN SOD 5,000 UNIT/0.5 ML VIAL SQ SCH ×2 (09:01→20:54)
[2023-01-22] MEDS: amLODIPine BESYLATE 5 MG TAB PO SCH (09:01)
[2023-01-22] MEDS: LOSARTAN POTASSIUM 50 MG TAB PO SCH (09:01)
[2023-01-22] MEDS: DOCUSATE SODIUM 100 MG CAP PO SCH ×2 (09:03→20:56)
[2023-01-22] MEDS: GABAPENTIN 600 MG TAB PO SCH ×4 (09:03→20:54)
[2023-01-22] MEDS: ACETAMINOPHEN 325 MG TAB PO SCH ×3 (09:07→20:57)
--- NOTE | 2023-01-22 13:46 | Hospitalist Progress Note ---
Date of Service January 22, 2023 Assessment & Plan (1) S/P total knee arthroplasty: (2) Alcohol withdrawal delirium: (3) Head injury: (4) Fall: (5) HTN (hypertension): Plan Pt is a 77yoM with PMhx significant for HTN, DMII, HLD, chronic pain, ED admitted for L TKA done on 01/13/2023. The hospitalist service was consulted after a fall following surgery with a possible head injury. Surgery on 01/13/2023 TKA TKA on 01/13/2023 following with ortho Stated to previous provider that he did not hurt his left leg during the fall, notes it "gives out" all the time. Pain control, PT/OT Wound care per ortho Received Ancef perioperatively per protocol and was later placed on empiric Zosyn No evidence of active infection at this time and will stop additional abx. He is doing well clinically. We will need to go to rehab-no bed available till Tuesday Complains some pain in the right knee with swelling status post surgery as above Will have Ortho appointment as an outpatient as planned We will monitor CBC and PRP Post operative Fall/Head injury Per pt when he was alert and oriented, he was not wearing socks when he fell. Slipped while trying to get out of bed. States that he hit his head on the nearby BP machine. Denied LOC, headache or pain in the area of the head that was hit. No visible bruising on exam. Neuro exam with no gross deficits at that time except in LLE that was recently operated on. Head CT was ordered- no acute changes. Pt remained stable but currently with AMS in setting of chronic alcohol use. Other imaging as noted above. No further work-up planned during this hospital stay. Alcohol withdrawal delirium On AWSS protocol with Ativan and Librium. PRN zyprexa ordered as well. Off restraints, and continues to receive as needed Ativan CT head on 01/13- with no acute change or fracture, MRI brain noted possible brain aneurysm, CTA head notes 8x8mm ALEX aneurysm. Recommend outpatient follow- up with neurosurgery. Delirium appeared to resolve but came back again overnight. Continue supportive care. He is tolerating p.o. There are no focal neurologic deficits therefore do not believe a repeat head CT is necessary at this time. Remains medically stable HTN elevated in setting of alcohol withdrawal cont current medications and treatment for ETOH withdrawal and noncompliance with oral and antihypertensives Continue home regimen including hydrochlorothiazide, losartan, metoprolol twice daily --BP improved after starting this back again this morning No issues with blood pressure DMII-chronic, well controlled per recent A1C 5.8 in November 12. Cont current therapy Hyperlipidemia-chronic, stable, continue home medications CODE STATUS: Full code Diet: DMII DVT Prophylaxis: heparin Dispo: Awaiting discharge to rehab Admission and Anticipated Discharge Date Admission Date: January 15, 2023 Subjective 01/21/2023 The patient was seen and examined in medical floor He is a status post left total knee arthroplasty Complains pain in the left knee and has been getting physical therapy Awaiting placement to go to rehab 01/22/2023 The patient was seen and examined in medical floor He complains to have some knee pain Has been getting physical therapy and trying to walk around the hallway with a walker Denies any other symptom Review of Systems Review of Systems: All systems reviewed and are unremarkable except as noted below Physical Exam Physical Exam: Sitting on a chair without any acute distress Constitutional: well developed, well nourished, + ill appearing and average body habitus Eyes: PERRL, conjunctivae normal, anicteric sclerae ENMT: external ear and nose normal, oropharynx normal Neck: trachea midline, no thyromegaly Respiratory: no respiratory distress Auscultation: lungs clear to auscultation bilaterally Cardiovascular: Rate/Rhythm: regular rate and regular rhythm Heart Sounds: normal S1 and normal S2; no murmur Gastrointestinal (Abdomen): Inspection/Auscultation: abdomen not distended Percussion/Palpation: abdomen soft; abdomen nontender Neurologic: normal touch/pain/proprioception and moves all extremities; no focal motor deficits Psychiatric: A+Ox3, euthymic affect Lymphatic: no cervical or axillary lymphadenopathy Results & Data Results & Data Vital Signs (Past 12 Hours) Vital Signs Temp Pulse Resp BP Pulse Ox O2 Del Method 01/22/23 07:43 36.6 C 71 20 146/73 H 97 Room Air Medications Administered Current Inpatient Medications Acetaminophen (Acetaminophen 325 Mg Tab) 650 mg PO TID [facility] Stop: 02/17/23 20:59 Last Admin: 01/22/23 13:12 Dose: 650 mg Al Hydrox/Mg Hydrox/Simethicone (Aluminum/Magnesium Susp 30 Ml Udc) 15 ml PO Q4H PRN PRN Reason: Heartburn Stop: 02/12/23 08:52 Amlodipine Besylate (Amlodipine Besylate 5 Mg Tab) 5 mg PO QAM [facility] Stop: 02/12/23 08:59 Last Admin: 01/22/23 09:01 Dose: 5 mg Bisacodyl (Bisacodyl 10 Mg Supp) 10 mg [place] DAILY PRN PRN Reason: Constipation Stop: 02/12/23 08:52 Celecoxib (Celebrex 200 Mg Cap) 200 mg PO BID [facility] Stop: 02/13/23 20:59 Last Admin: 01/22/23 08:59 Dose: 200 mg Cyanocobalamin (Cyanocobalamin (B-12) 500 Mcg Tablet) 1,000 mcg PO QAM [facility] Stop: 02/12/23 08:59 Last Admin: 01/22/23 08:59 Dose: 1,000 mcg Dextrose (Dextrose 50% 50 Ml Syringe) 25 - 50 ml IV UD PRN; Protocol PRN Reason: Hypoglycemia Protocol Stop: 02/12/23 10:59 Docusate Sodium (Docusate Sodium 100 Mg Cap) 100 mg PO BID [facility] Stop: 02/12/23 08:59 Last Admin: 01/22/23 09:03 Dose: 100 mg Duloxetine HCl (Duloxetine Hcl 30 Mg Cap) 30 mg PO QAM [facility] Stop: 02/12/23 08:59 Last Admin: 01/22/23 08:59 Dose: 30 mg Famotidine (Famotidine 20 Mg Tab) 20 mg PO QPM [facility] Stop: 02/12/23 20:59 Last Admin: 01/21/23 20:31 Dose: 20 mg Folic Acid (Folic Acid 1 Mg Tab) 1 mg PO QAM [facility] Stop: 02/14/23 08:59 Last Admin: 01/22/23 09:00 Dose: 1 mg Gabapentin (Gabapentin 600 Mg Tab) 600 mg PO QID [facility] Stop: 02/12/23 08:59 Last Admin: 01/22/23 13:12 Dose: 600 mg Glucagon (Glucagon For Inj 1 Mg Vial) 1 mg IM UD PRN; Protocol PRN Reason: Hypoglycemia Protocol Stop: 02/12/23 10:59 Glucose (Glucose 40% Gel 15 Gm Tube) 15 - 30 gm PO UD PRN; Protocol PRN Reason: Hypoglycemia Protocol Stop: 02/12/23 10:59 Glucose (Glucose 10 Tab/Tube) 4 - 8 tab PO UD PRN; Protocol PRN Reason: Hypoglycemia Protocol Stop: 02/12/23 10:59 Heparin Sodium (Porcine) (Heparin Sod 5,000 Unit/0.5 Ml Vial) 5,000 units SQ Q12 [facility] Stop: 02/14/23 11:28 Last Admin: 01/22/23 09:01 Dose: 5,000 units Hydrochlorothiazide (Hydrochlorothiazide 25 Mg Tab) 25 mg PO [id number] [facility] Stop: 02/12/23 08:59 Last Admin: 01/22/23 09:00 Dose: 25 mg Hydromorphone HCl (Hydromorphone Inj 0.5 Mg/0.5 Ml Syr) 0.5 mg IV Q4H PRN PRN Reason: Pain or Pre PT Stop: 01/27/23 08:52 Lorazepam (Lorazepam 2 Mg/1 Ml Vial) 1 mg IV UD PRN; Protocol PRN Reason: EtOH Withdrawal AWSS Score 6+ Stop: 02/17/23 22:43 Losartan Potassium (Losartan Potassium 50 Mg Tab) 100 mg PO QAM [facility] Stop: 02/12/23 08:59 Last Admin: 01/22/23 09:01 Dose: 100 mg Magnesium Hydroxide (Magnesium Hydroxide Susp 30 Ml Udc) 30 ml PO Q6H PRN PRN Reason: Constipation Stop: 02/12/23 08:52 Metoprolol Tartrate (Metoprolol Tartrate 50 Mg Tab) 50 mg PO BID [facility] Stop: 02/12/23 08:59 Last Admin: 01/22/23 09:00 Dose: 50 mg Miscellaneous (Carbohydrates For Hypoglycemia ) 15 - 30 gm PO UD PRN PRN Reason: Hypoglycemia Treatment Stop: 02/12/23 10:59 Multivitamins (Multivitamin Tab) 1 tab PO QAM [facility] Stop: 02/12/23 08:59 Last Admin: 01/22/23 09:00 Dose: 1 tab Naloxone HCl (Naloxone Hcl 0.4 Mg/1 Ml Vial/Carp) 0.1 mg IV Q5M PRN PRN Reason: Oversedation/Resp Depression Stop: 02/12/23 08:52 Nitroglycerin (Nitroglycerin Sl 0.4 Mg/Tab Tab) 0.4 mg SL Q5M PRN PRN Reason: Chest Pain Stop: 02/12/23 08:56 Ondansetron HCl (Ondansetron Inj 2 Mg/Ml 2 Ml Vial) 4 mg IV Q6H PRN PRN Reason: Nausea And Vomiting Stop: 02/12/23 08:52 Oxycodone HCl (Oxycodone Hcl Ir 5 Mg Tab (Immediate Release)) 5 - 10 mg PO Q4H PRN PRN Reason: Pain or Pre PT Stop: 01/27/23 08:52 Last Admin: 01/22/23 03:33 Dose: 5 mg Rosuvastatin Calcium (Rosuvastatin Calcium 20 Mg Tab) 20 mg PO QAM [facility] Stop: 02/12/23 08:59 Last Admin: 01/22/23 09:00 Dose: 20 mg Sennosides (Senna 8.6 Mg Tab) 17.2 mg PO [facility] Stop: 02/12/23 20:59 Last Admin: 01/21/23 20:25 Dose: Not Given Tamsulosin HCl (Tamsulosin Hcl 0.4 Mg Cap) 0.4 mg PO QAM PRN PRN Reason: UNABLE to void Stop: 02/12/23 08:52 Thiamine HCl (Thiamine Hcl 100 Mg Tab) 100 mg PO QAM [facility] Stop: 02/18/23 08:59 Last Admin: 01/22/23 08:59 Dose: 100 mg
[2023-01-22] MEDS: SENNA 8.6 MG TAB PO SCH (20:56)
[2023-01-22] MEDS: FAMOTIDINE 20 MG TAB PO SCH (20:57)
[2023-01-23] MEDS: oxyCODONE HCL IR 5 MG TAB (IMMEDIATE RELEASE) PO PRN ×2 (03:38→15:04)
[2023-01-23 07:16] LABS: Basophils # (auto) 0.05 K/uL (0.00-0.20); Basophils % (auto) 0.7 %; Eosinophils # (auto) 0.18 K/uL (0.00-0.50); Eosinophils % (auto) 2.5 %; Hemoglobin 12.3 g/dl (14.0-18.0); Immature Granulocytes # (auto) 0.14 K/uL (0.01-0.20); Immature Granulocytes % (auto) 1.9 %; Lymphocytes # (auto) 1.17 K/uL (1.20-3.40); Mean Corpuscular Hemoglobin 29.2 pg (25.0-34.0); Mean Corpuscular Hgb Conc 33.2 g/dL (32.0-36.0); Mean Corpuscular Volume 87.9 fL (80.0-100.0); Mean Platelet Volume 11.4 fL (9.4-12.4); Monocytes # (auto) 0.74 K/uL (0.11-0.59); Monocytes % (auto) 10.1 %; Neutrophils # (auto) 5.04 K/uL (1.40-6.50); Neutrophils % (auto) 68.8 %; Platelet Count 302 K/uL (130-400); RDW Coefficient of Variation 14.4 % (11.5-14.5); RDW Standard Deviation 45.5 fL (36.4-46.3); Red Blood Count 4.21 M/uL (4.70-6.10); White Blood Count 7.32 K/ul (4.8-10.8)
[2023-01-23 08:29] LABS: BUN Creatinine Ratio 27.5 (10-20); Calcium 9.2 mg/dl (8.6-10.3); Est GFR (African American) 100.6 ml/min; Est GFR (Non-African American) 86.8 ml/min; Potassium 3.2 mmol/L (3.5-5.1)
[2023-01-23] MEDS: ROSUVASTATIN CALCIUM 20 MG TAB PO SCH (09:10)
[2023-01-23] MEDS: MULTIVITAMIN TAB PO SCH (09:10)
[2023-01-23] MEDS: FOLIC ACID 1 MG TAB PO SCH (09:10)
[2023-01-23] MEDS: GABAPENTIN 600 MG TAB PO SCH ×4 (09:10→21:35)
[2023-01-23] MEDS: METOPROLOL TARTRATE 50 MG TAB PO SCH ×2 (09:10→21:35)
[2023-01-23] MEDS: THIAMINE HCL 100 MG TAB PO SCH (09:10)
[2023-01-23] MEDS: CeleBREX 200 MG CAP PO SCH ×2 (09:11→21:35)
[2023-01-23] MEDS: DULoxetine HCL 30 MG CAP PO SCH (09:11)
[2023-01-23] MEDS: hydroCHLOROthiazide 25 MG TAB PO SCH (09:11)
[2023-01-23] MEDS: LOSARTAN POTASSIUM 50 MG TAB PO SCH (09:11)
[2023-01-23] MEDS: CYANOCOBALAMIN (B-12) 500 MCG TABLET PO SCH (09:11)
[2023-01-23] MEDS: amLODIPine BESYLATE 5 MG TAB PO SCH (09:12)
[2023-01-23] MEDS: HEPARIN SOD 5,000 UNIT/0.5 ML VIAL SQ SCH ×2 (09:14→21:36)
[2023-01-23] MEDS: ACETAMINOPHEN 325 MG TAB PO SCH ×3 (09:17→20:14)
[2023-01-23] MEDS: DOCUSATE SODIUM 100 MG CAP PO SCH ×2 (09:17→21:34)
[2023-01-23] MEDS: ASPIRIN 81 MG ECTAB PO SCH (10:16)
[2023-01-23] MEDS ORDERED: POTASSIUM CHLORIDE CRTAB 20 MEQ TABCR PO STA (11:51)
--- NOTE | 2023-01-23 11:54 | Hospitalist Progress Note ---
Date of Service January 23, 2023 Assessment & Plan (1) S/P total knee arthroplasty: (2) Alcohol withdrawal delirium: (3) Head injury: (4) Fall: (5) HTN (hypertension): Plan Pt is a 77yoM with PMhx significant for HTN, DMII, HLD, chronic pain, ED admitted for L TKA done on 01/13/2023. The hospitalist service was consulted after a fall following surgery with a possible head injury. Surgery on 01/13/2023 TKA TKA on 01/13/2023 following with ortho Stated to previous provider that he did not hurt his left leg during the fall, notes it "gives out" all the time. Pain control, PT/OT Wound care per ortho Received Ancef perioperatively per protocol and was later placed on empiric Zosyn No evidence of active infection at this time and will stop additional abx. He is doing well clinically. We will need to go to rehab-no bed available till Tuesday Complains some pain in the right knee with swelling status post surgery as above Will have Ortho appointment as an outpatient as planned Reviewed CBC and PRP Hypokalemia-potassium supplemented Post operative Fall/Head injury Per pt when he was alert and oriented, he was not wearing socks when he fell. Slipped while trying to get out of bed. States that he hit his head on the n [employer] BP machine. Denied LOC, headache or pain in the area of the head that was hit. No visible bruising on exam. Neuro exam with no gross deficits at that time except in LLE that was recently operated on. Head CT was ordered- no acute changes. Pt remained stable but currently with AMS in setting of chronic alcohol use. Other imaging as noted above. No further work-up planned during this hospital stay. Alcohol withdrawal delirium On AWSS protocol with Ativan and Librium. PRN zyprexa ordered as well. Off restraints, and continues to receive as needed Ativan CT head on 01/13- with no acute change or fracture, MRI brain noted possible brain aneurysm, CTA head notes 8x8mm ALEX aneurysm. Recommend outpatient follow- up with neurosurgery. Delirium appeared to resolve but came back again overnight. Continue supportive care. He is tolerating p.o. There are no focal neurologic deficits therefore do not believe a repeat head CT is necessary at this time. Remains medically stable HTN elevated in setting of alcohol withdrawal cont current medications and treatment for ETOH withdrawal and noncompliance with oral and antihypertensives Continue home regimen including hydrochlorothiazide, losartan, metoprolol twice daily --BP improved after starting this back again this morning No issues with blood pressure DMII-chronic, well controlled per recent A1C 5.8 in November 12. Cont current therapy Hyperlipidemia-chronic, stable, continue home medications CODE STATUS: Full code Diet: DMII DVT Prophylaxis: heparin Dispo: Awaiting discharge to rehab Admission and Anticipated Discharge Date Admission Date: January 15, 2023 Subjective 01/21/2023 The patient was seen and examined in medical floor He is a status post left total knee arthroplasty Complains pain in the left knee and has been getting physical therapy Awaiting placement to go to rehab 01/22/2023 The patient was seen and examined in medical floor He complains to have some knee pain Has been getting physical therapy and trying to walk around the hallway with a walker Denies any other symptom 01/23/2023 He remains stable and has been getting physical therapy Left knee pain and swelling are improved Review of Systems Review of Systems: All systems reviewed and are unremarkable except as noted below Physical Exam Physical Exam: Sitting on a chair without any acute distress Constitutional: well developed, well nourished, + ill appearing and average body habitus Eyes: PERRL, conjunctivae normal, anicteric sclerae ENMT: external ear and nose normal, oropharynx normal Neck: trachea midline, no thyromegaly Respiratory: no respiratory distress Auscultation: lungs clear to auscultation bilaterally Cardiovascular: Rate/Rhythm: regular rate and regular rhythm Heart Sounds: normal S1 and normal S2; no murmur Gastrointestinal (Abdomen): Inspection/Auscultation: abdomen not distended Percussion/Palpation: abdomen soft; abdomen nontender Neurologic: normal touch/pain/proprioception and moves all extremities; no focal motor deficits Psychiatric: A+Ox3, euthymic affect Lymphatic: no cervical or axillary lymphadenopathy Results & Data Results & Data Vital Signs (Past 12 Hours) Vital Signs Temp Pulse Resp BP Pulse Ox O2 Del Method 01/23/23 07:14 36.4 C L 60 16 135/69 98 Room Air Laboratory Results Short CBC 01/23/23 Range/Units 06:13 WBC 7.32 (4.8-10.8) K/ul Hgb 12.3 L (14.0-18.0) g/dl Hct 37.0 L (42.0-52.0) % Plt Count 302 (130-400) K/uL BMP 01/23/23 06:13 Sodium 141 Potassium 3.2 L Chloride 102 Carbon Dioxide 32 BUN 22 Creatinine 0.80 Glucose 91 Calcium 9.2 Medications Administered Current Inpatient Medications Acetaminophen (Acetaminophen 325 Mg Tab) 650 mg PO TID [facility] Stop: 02/17/23 20:59 Last Admin: 01/23/23 09:17 Dose: 650 mg Al Hydrox/Mg Hydrox/Simethicone (Aluminum/Magnesium Susp 30 Ml Udc) 15 ml PO Q4H PRN PRN Reason: Heartburn Stop: 02/12/23 08:52 Amlodipine Besylate (Amlodipine Besylate 5 Mg Tab) 5 mg PO QAM [facility] Stop: 02/12/23 08:59 Last Admin: 01/23/23 09:12 Dose: 5 mg Aspirin (Aspirin 81 Mg Ectab) 81 mg PO QAM [facility] Stop: 02/22/23 08:59 Last Admin: 01/23/23 10:16 Dose: 81 mg Bisacodyl (Bisacodyl 10 Mg Supp) 10 mg [place] DAILY PRN PRN Reason: Constipation Stop: 02/12/23 08:52 Celecoxib (Celebrex 200 Mg Cap) 200 mg PO BID [facility] Stop: 02/13/23 20:59 Last Admin: 01/23/23 09:11 Dose: 200 mg Cyanocobalamin (Cyanocobalamin (B-12) 500 Mcg Tablet) 1,000 mcg PO QAM [facility] Stop: 02/12/23 08:59 Last Admin: 01/23/23 09:11 Dose: 1,000 mcg Dextrose (Dextrose 50% 50 Ml Syringe) 25 - 50 ml IV UD PRN; Protocol PRN Reason: Hypoglycemia Protocol Stop: 02/12/23 10:59 Docusate Sodium (Docusate Sodium 100 Mg Cap) 100 mg PO BID [facility] Stop: 02/12/23 08:59 Last Admin: 01/23/23 09:17 Dose: 100 mg Duloxetine HCl (Duloxetine Hcl 30 Mg Cap) 30 mg PO QAM [facility] Stop: 02/12/23 08:59 Last Admin: 01/23/23 09:11 Dose: 30 mg Famotidine (Famotidine 20 Mg Tab) 20 mg PO QPM [facility] Stop: 02/12/23 20:59 Last Admin: 01/22/23 20:57 Dose: 20 mg Folic Acid (Folic Acid 1 Mg Tab) 1 mg PO QAM [facility] Stop: 02/14/23 08:59 Last Admin: 01/23/23 09:10 Dose: 1 mg Gabapentin (Gabapentin 600 Mg Tab) 600 mg PO QID [facility] Stop: 02/12/23 08:59 Last Admin: 01/23/23 09:10 Dose: 600 mg Glucagon (Glucagon For Inj 1 Mg Vial) 1 mg IM UD PRN; Protocol PRN Reason: Hypoglycemia Protocol Stop: 02/12/23 10:59 Glucose (Glucose 40% Gel 15 Gm Tube) 15 - 30 gm PO UD PRN; Protocol PRN Reason: Hypoglycemia Protocol Stop: 02/12/23 10:59 Glucose (Glucose 10 Tab/Tube) 4 - 8 tab PO UD PRN; Protocol PRN Reason: Hypoglycemia Protocol Stop: 02/12/23 10:59 Heparin Sodium (Porcine) (Heparin Sod 5,000 Unit/0.5 Ml Vial) 5,000 units SQ Q12 [facility] Stop: 02/14/23 11:28 Last Admin: 01/23/23 09:14 Dose: 5,000 units Hydrochlorothiazide (Hydrochlorothiazide 25 Mg Tab) 25 mg PO [email or web address] [facility] Stop: 02/12/23 08:59 Last Admin: 01/23/23 09:11 Dose: 25 mg Hydromorphone HCl (Hydromorphone Inj 0.5 Mg/0.5 Ml Syr) 0.5 mg IV Q4H PRN PRN Reason: Pain or Pre PT Stop: 01/27/23 08:52 Lorazepam (Lorazepam 2 Mg/1 Ml Vial) 1 mg IV UD PRN; Protocol PRN Reason: EtOH Withdrawal AWSS Score 6+ Stop: 02/17/23 22:43 Losartan Potassium (Losartan Potassium 50 Mg Tab) 100 mg PO QAM [facility] Stop: 02/12/23 08:59 Last Admin: 01/23/23 09:11 Dose: 100 mg Magnesium Hydroxide (Magnesium Hydroxide Susp 30 Ml Udc) 30 ml PO Q6H PRN PRN Reason: Constipation Stop: 02/12/23 08:52 Metoprolol Tartrate (Metoprolol Tartrate 50 Mg Tab) 50 mg PO BID [facility] Stop: 02/12/23 08:59 Last Admin: 01/23/23 09:10 Dose: 50 mg Miscellaneous (Carbohydrates For Hypoglycemia ) 15 - 30 gm PO UD PRN PRN Reason: Hypoglycemia Treatment Stop: 02/12/23 10:59 Multivitamins (Multivitamin Tab) 1 tab PO QAM [facility] Stop: 02/12/23 08:59 Last Admin: 01/23/23 09:10 Dose: 1 tab Naloxone HCl (Naloxone Hcl 0.4 Mg/1 Ml Vial/Carp) 0.1 mg IV Q5M PRN PRN Reason: Oversedation/Resp Depression Stop: 02/12/23 08:52 Nitroglycerin (Nitroglycerin Sl 0.4 Mg/Tab Tab) 0.4 mg SL Q5M PRN PRN Reason: Chest Pain Stop: 02/12/23 08:56 Ondansetron HCl (Ondansetron Inj 2 Mg/Ml 2 Ml Vial) 4 mg IV Q6H PRN PRN Reason: Nausea And Vomiting Stop: 02/12/23 08:52 Oxycodone HCl (Oxycodone Hcl Ir 5 Mg Tab (Immediate Release)) 5 - 10 mg PO Q4H PRN PRN Reason: Pain or Pre PT Stop: 01/27/23 08:52 Last Admin: 01/23/23 03:38 Dose: 10 mg Potassium Chloride (Potassium Chloride Crtab 20 Meq Tabcr) 40 meq PO NOW STA Stop: 01/23/23 11:52 Rosuvastatin Calcium (Rosuvastatin Calcium 20 Mg Tab) 20 mg PO QAM [facility] Stop: 02/12/23 08:59 Last Admin: 01/23/23 09:10 Dose: 20 mg Sennosides (Senna 8.6 Mg Tab) 17.2 mg PO HS [facility] Stop: 02/12/23 20:59 Last Admin: 01/22/23 20:56 Dose: Not Given Tamsulosin HCl (Tamsulosin Hcl 0.4 Mg Cap) 0.4 mg PO QAM PRN PRN Reason: UNABLE to void Stop: 02/12/23 08:52 Thiamine HCl (Thiamine Hcl 100 Mg Tab) 100 mg PO QAM [facility] Stop: 02/18/23 08:59 Last Admin: 01/23/23 09:10 Dose: 100 mg
[2023-01-23] MEDS: FAMOTIDINE 20 MG TAB PO SCH (21:35)
[2023-01-23] MEDS: SENNA 8.6 MG TAB PO SCH (21:36)
[2023-01-24] MEDS: oxyCODONE HCL IR 5 MG TAB (IMMEDIATE RELEASE) PO PRN ×4 (00:07→17:31)
[2023-01-24] MEDS: ACETAMINOPHEN 325 MG TAB PO SCH ×3 (08:21→20:59)
[2023-01-24] MEDS: DOCUSATE SODIUM 100 MG CAP PO SCH ×2 (08:22→21:01)
[2023-01-24] MEDS: THIAMINE HCL 100 MG TAB PO SCH (08:24)
[2023-01-24] MEDS: hydroCHLOROthiazide 25 MG TAB PO SCH (08:24)
[2023-01-24] MEDS: ROSUVASTATIN CALCIUM 20 MG TAB PO SCH (08:24)
[2023-01-24] MEDS: MULTIVITAMIN TAB PO SCH (08:24)
[2023-01-24] MEDS: METOPROLOL TARTRATE 50 MG TAB PO SCH ×2 (08:24→20:59)
[2023-01-24] MEDS: LOSARTAN POTASSIUM 50 MG TAB PO SCH (08:24)
[2023-01-24] MEDS: amLODIPine BESYLATE 5 MG TAB PO SCH (08:25)
[2023-01-24] MEDS: CYANOCOBALAMIN (B-12) 500 MCG TABLET PO SCH (08:25)
[2023-01-24] MEDS: FOLIC ACID 1 MG TAB PO SCH (08:25)
[2023-01-24] MEDS: DULoxetine HCL 30 MG CAP PO SCH (08:25)
[2023-01-24] MEDS: GABAPENTIN 600 MG TAB PO SCH ×4 (08:25→21:00)
[2023-01-24] MEDS: ASPIRIN 81 MG ECTAB PO SCH (08:26)
[2023-01-24] MEDS: CeleBREX 200 MG CAP PO SCH ×2 (08:26→21:00)
[2023-01-24] MEDS: HEPARIN SOD 5,000 UNIT/0.5 ML VIAL SQ SCH ×2 (08:26→21:00)
--- NOTE | 2023-01-24 14:22 | Hospitalist Progress Note ---
Date of Service January 24, 2023 Assessment & Plan (1) S/P total knee arthroplasty: (2) Alcohol withdrawal delirium: (3) Head injury: (4) Fall: (5) HTN (hypertension): Plan Pt is a 77yoM with PMhx significant for HTN, DMII, HLD, chronic pain, ED admitted for L TKA done on 01/13/2023. The hospitalist service was consulted after a fall following surgery with a possible head injury. Surgery on 01/13/2023 TKA TKA on 01/13/2023 following with ortho Stated to previous provider that he did not hurt his left leg during the fall, notes it "gives out" all the time. Pain control, PT/OT Wound care per ortho Received Ancef perioperatively per protocol and was later placed on empiric Zosyn No evidence of active infection at this time and will stop additional abx. He is doing well clinically. We will need to go to rehab-no bed available till Tuesday Complains some pain in the right knee with swelling status post surgery as above Will have Ortho appointment as an outpatient as planned Reviewed CBC and PRP Hypokalemia-potassium supplemented No acute issues likely discharge tomorrow for short-term rehab/home with PT Post operative Fall/Head injury Per pt when he was alert and oriented, he was not wearing socks when he fell. Slipped while trying to get out of bed. States that he hit his head on the nearby BP machine. Denied LOC, headache or pain in the area of the head that was hit. No visible bruising on exam. Neuro exam with no gross deficits at that time except in LLE that was recently operated on. Head CT was ordered- no acute changes. Pt remained stable but currently with AMS in setting of chronic alcohol use. Other imaging as noted above. No further work-up planned during this hospital stay. Alcohol withdrawal delirium On AWSS protocol with Ativan and Librium. PRN zyprexa ordered as well. Off restraints, and continues to receive as needed Ativan CT head on 01/13- with no acute change or fracture, MRI brain noted possible brain aneurysm, CTA head notes 8x8mm ALEX aneurysm. Recommend outpatient follow- up with neurosurgery. Delirium appeared to resolve but came back again overnight. Continue supportive care. He is tolerating p.o. There are no focal neurologic deficits therefore do not believe a repeat head CT is necessary at this time. Remains medically stable-without any evidence of withdrawal HTN elevated in setting of alcohol withdrawal cont current medications and treatment for ETOH withdrawal and noncompliance with oral and antihypertensives Continue home regimen including hydrochlorothiazide, losartan, metoprolol twice daily --BP improved after starting this back again this morning No issues with blood pressure DMII-chronic, well controlled per recent A1C 5.8 in November 12. Cont current therapy Hyperlipidemia-chronic, stable, continue home medications CODE STATUS: Full code Diet: DMII DVT Prophylaxis: heparin Dispo: Awaiting discharge to rehab Admission and Anticipated Discharge Date Admission Date: January 15, 2023 Subjective 01/21/2023 The patient was seen and examined in medical floor He is a status post left total knee arthroplasty Complains pain in the left knee and has been getting physical therapy Awaiting placement to go to rehab 01/22/2023 The patient was seen and examined in medical floor He complains to have some knee pain Has been getting physical therapy and trying to walk around the hallway with a walker Denies any other symptom 01/23/2023 He remains stable and has been getting physical therapy Left knee pain and swelling are improved 01/24/2023 Patient was seen and examined in medical floor He remains stable with minimal pain in the left knee Has been getting physical therapy and walking around in the hallway with a walker Review of Systems Review of Systems: All systems reviewed and are unremarkable except as noted below Physical Exam Physical Exam: Sitting on a chair without any acute distress Constitutional: well developed, well nourished, + ill appearing and average body habitus Eyes: PERRL, conjunctivae normal, anicteric sclerae ENMT: external ear and nose normal, oropharynx normal Neck: trachea midline, no thyromegaly Respiratory: no respiratory distress Auscultation: lungs clear to auscultation bilaterally Cardiovascular: Rate/Rhythm: regular rate and regular rhythm Heart Sounds: normal S1 and normal S2; no murmur Gastrointestinal (Abdomen): Inspection/Auscultation: abdomen not distended Percussion/Palpation: abdomen soft; abdomen nontender Neurologic: normal touch/pain/proprioception and moves all extremities; no focal motor deficits Psychiatric: A+Ox3, euthymic affect Lymphatic: no cervical or axillary lymphadenopathy Results & Data Results & Data Vital Signs (Past 12 Hours) Vital Signs Temp Pulse Resp BP Pulse Ox O2 Del Method 01/24/23 08:08 36.5 C 75 16 127/75 99 Room Air Medications Administered Current Inpatient Medications Acetaminophen (Acetaminophen 325 Mg Tab) 650 mg PO TID [facility] Stop: 02/17/23 20:59 Last Admin: 01/24/23 13:03 Dose: 650 mg Al Hydrox/Mg Hydrox/Simethicone (Aluminum/Magnesium Susp 30 Ml Udc) 15 ml PO Q 4H PRN PRN Reason: Heartburn Stop: 02/12/23 08:52 Amlodipine Besylate (Amlodipine Besylate 5 Mg Tab) 5 mg PO QAM [facility] Stop: 02/12/23 08:59 Last Admin: 01/24/23 08:25 Dose: 5 mg Aspirin (Aspirin 81 Mg Ectab) 81 mg PO QAM [facility] Stop: 02/22/23 08:59 Last Admin: 01/24/23 08:26 Dose: 81 mg Bisacodyl (Bisacodyl 10 Mg Supp) 10 mg OR DAILY PRN PRN Reason: Constipation Stop: 02/12/23 08:52 Celecoxib (Celebrex 200 Mg Cap) 200 mg PO BID [facility] Stop: 02/13/23 20:59 Last Admin: 01/24/23 08:26 Dose: 200 mg Cyanocobalamin (Cyanocobalamin (B-12) 500 Mcg Tablet) 1,000 mcg PO QAM [facility] Stop: 02/12/23 08:59 Last Admin: 01/24/23 08:25 Dose: 1,000 mcg Dextrose (Dextrose 50% 50 Ml Syringe) 25 - 50 ml IV UD PRN; Protocol PRN Reason: Hypoglycemia Protocol Stop: 02/12/23 10:59 Docusate Sodium (Docusate Sodium 100 Mg Cap) 100 mg PO BID KALI Stop: 02/12/23 08:59 Last Admin: 01/24/23 08:22 Dose: Not Given Duloxetine HCl (Duloxetine Hcl 30 Mg Cap) 30 mg PO QAM [facility] Stop: 02/12/23 08:59 Last Admin: 01/24/23 08:25 Dose: 30 mg Famotidine (Famotidine 20 Mg Tab) 20 mg PO QPM KALI Stop: 02/12/23 20:59 Last Admin: 01/23/23 21:35 Dose: 20 mg Folic Acid (Folic Acid 1 Mg Tab) 1 mg PO QAM [facility] Stop: 02/14/23 08:59 Last Admin: 01/24/23 08:25 Dose: 1 mg Gabapentin (Gabapentin 600 Mg Tab) 600 mg PO QID [facility] Stop: 02/12/23 08:59 Last Admin: 01/24/23 13:03 Dose: 600 mg Glucagon (Glucagon For Inj 1 Mg Vial) 1 mg IM UD PRN; Protocol PRN Reason: Hypoglycemia Protocol Stop: 02/12/23 10:59 Glucose (Glucose 40% Gel 15 Gm Tube) 15 - 30 gm PO UD PRN; Protocol PRN Reason: Hypoglycemia Protocol Stop: 02/12/23 10:59 Glucose (Glucose 10 Tab/Tube) 4 - 8 tab PO UD PRN; Protocol PRN Reason: Hypoglycemia Protocol Stop: 02/12/23 10:59 Heparin Sodium (Porcine) (Heparin Sod 5,000 Unit/0.5 Ml Vial) 5,000 units SQ Q12 [facility] Stop: 02/14/23 11:28 Last Admin: 01/24/23 08:26 Dose: 5,000 units Hydrochlorothiazide (Hydrochlorothiazide 25 Mg Tab) 25 mg PO [id number] [facility] Stop: 02/12/23 08:59 Last Admin: 01/24/23 08:24 Dose: 25 mg Hydromorphone HCl (Hydromorphone Inj 0.5 Mg/0.5 Ml Syr) 0.5 mg IV Q4H PRN PRN Reason: Pain or Pre PT Stop: 01/27/23 08:52 Lorazepam (Lorazepam 2 Mg/1 Ml Vial) 1 mg IV UD PRN; Protocol PRN Reason: EtOH Withdrawal AWSS Score 6+ Stop: 02/17/23 22:43 Losartan Potassium (Losartan Potassium 50 Mg Tab) 100 mg PO QAM [facility] Stop: 02/12/23 08:59 Last Admin: 01/24/23 08:24 Dose: 100 mg Magnesium Hydroxide (Magnesium Hydroxide Susp 30 Ml Udc) 30 ml PO Q6H PRN PRN Reason: Constipation Stop: 02/12/23 08:52 Metoprolol Tartrate (Metoprolol Tartrate 50 Mg Tab) 50 mg PO BID [facility] Stop: 02/12/23 08:59 Last Admin: 01/24/23 08:24 Dose: 50 mg Miscellaneous (Carbohydrates For Hypoglycemia ) 15 - 30 gm PO UD PRN PRN Reason: Hypoglycemia Treatment Stop: 02/12/23 10:59 Multivitamins (Multivitamin Tab) 1 tab PO QAM [facility] Stop: 02/12/23 08:59 Last Admin: 01/24/23 08:24 Dose: 1 tab Naloxone HCl (Naloxone Hcl 0.4 Mg/1 Ml Vial/Carp) 0.1 mg IV Q5M PRN PRN Reason: Oversedation/Resp Depression Stop: 02/12/23 08:52 Nitroglycerin (Nitroglycerin Sl 0.4 Mg/Tab Tab) 0.4 mg SL Q5M PRN PRN Reason: Chest Pain Stop: 02/12/23 08:56 Ondansetron HCl (Ondansetron Inj 2 Mg/Ml 2 Ml Vial) 4 mg IV Q6H PRN PRN Reason: Nausea And Vomiting Stop: 02/12/23 08:52 Oxycodone HCl (Oxycodone Hcl Ir 5 Mg Tab (Immediate Release)) 5 - 10 mg PO Q4H PRN PRN Reason: Pain or Pre PT Stop: 01/27/23 08:52 Last Admin: 01/24/23 13:02 Dose: 10 mg Rosuvastatin Calcium (Rosuvastatin Calcium 20 Mg Tab) 20 mg PO QAM [facility] Stop: 02/12/23 08:59 Last Admin: 01/24/23 08:24 Dose: 20 mg Sennosides (Senna 8.6 Mg Tab) 17.2 mg PO [facility] Stop: 02/12/23 20:59 Last Admin: 01/23/23 21:36 Dose: Not Given Tamsulosin HCl (Tamsulosin Hcl 0.4 Mg Cap) 0.4 mg PO QAM PRN PRN Reason: UNABLE to void Stop: 02/12/23 08:52 Thiamine HCl (Thiamine Hcl 100 Mg Tab) 100 mg PO QAM [facility] Stop: 02/18/23 08:59 Last Admin: 01/24/23 08:24 Dose: 100 mg
[2023-01-24] MEDS: FAMOTIDINE 20 MG TAB PO SCH (21:00)
[2023-01-24] MEDS: SENNA 8.6 MG TAB PO SCH (21:01)
[2023-01-25] MEDS: METOPROLOL TARTRATE 50 MG TAB PO SCH (07:22)
[2023-01-25] MEDS: CeleBREX 200 MG CAP PO SCH (07:23)
[2023-01-25] MEDS: MULTIVITAMIN TAB PO SCH (07:23)
[2023-01-25] MEDS: GABAPENTIN 600 MG TAB PO SCH (07:23)
[2023-01-25] MEDS: ASPIRIN 81 MG ECTAB PO SCH (07:23)
[2023-01-25] MEDS: DULoxetine HCL 30 MG CAP PO SCH (07:24)
[2023-01-25] MEDS: ROSUVASTATIN CALCIUM 20 MG TAB PO SCH (07:24)
[2023-01-25] MEDS: CYANOCOBALAMIN (B-12) 500 MCG TABLET PO SCH (07:24)
[2023-01-25] MEDS: FOLIC ACID 1 MG TAB PO SCH (07:24)
[2023-01-25] MEDS: THIAMINE HCL 100 MG TAB PO SCH (07:24)
[2023-01-25] MEDS: LOSARTAN POTASSIUM 50 MG TAB PO SCH (07:24)
[2023-01-25] MEDS: amLODIPine BESYLATE 5 MG TAB PO SCH (07:24)
[2023-01-25] MEDS: HEPARIN SOD 5,000 UNIT/0.5 ML VIAL SQ SCH (07:25)
[2023-01-25] MEDS: DOCUSATE SODIUM 100 MG CAP PO SCH (07:25)
[2023-01-25] MEDS: ACETAMINOPHEN 325 MG TAB PO SCH (07:25)
--- NOTE | 2023-01-25 10:12 | Discharge Summary ---
Discharge Summary Date of Service January 25, 2023 Notes For Next Care Provider Patient admitted for left total knee arthroplasty. Hospital course was complicated with delirium in setting of alcohol withdrawal, postoperative fall without acute injury, hypertension in setting of alcohol withdrawal and hypokalemia. Medication Changes From Visit 1. Oxycodone 5 mg: take 1-2 tabs every 4-6 hours as needed for pain control. This will be sent to your pharmacy. 2. Diclofenac Sodium 75 mg: take 1 tab twice daily for 30 days post operatively for pain and inflammation relief. This will be sent to your pharmacy with 1 refill. 3. Aspirin 81 mg: increase your daily aspirin to twice daily for 30 days post operatively for blood clot prevention. 4. Extra Strength Tylenol 500 mg: take 2 tabs every 6-8 hours as needed for additional pain relief. Please purchase. Admission HPI Per Admitting Provider History of Present Illness (including history relevant to procedure): This 77-year-old male presents the clinic today for his preoperative history and physical. Patient complains of significant left-sided knee pain that has been ongoing for the past year and a half. He has failed conservative management with the use of nonsteroidal agents along with multiple corticosteroid injections. States he attempted physical therapy which made it worse. Patient was just recently cleared by his chief strategy officer and his primary care provider to proceed with surgical intervention. He has undergone a cardiac stress test which was unremarkable. He has slowed his hemoglobin A1c to 5.6. He states his chief strategy officer recently discontinued his Plavix and only has him on aspirin for blood thinning agent. Patient is very anxious to proceed with surgical interve ntion for his left knee osteoarthritis. Review Of Systems: A 12 point review of systems is formed and is unremarkable except for those things stated in the HPI and past medical history. Past Medical History: Problems: Aortoiliac occlusive disease Lumbar spinal stenosis Dyslipidemia HTN (hypertension) H/O right coronary artery stent placement History of PTCA CAD (coronary artery disease) History of myocardial infarction Diabetes Procedure History Procedure Procedure Date Comments PTCA - Percutaneous transluminal coronary angioplasty x3 stents RCA Back surgery Allergies and Sensitivities: lisinopril(Cough) Current Home Meds: (Last Updated 12/28 13:35) aspirin (aspirin 81 mg oral delayed release tablet) 81 mg PO Daily baclofen (baclofen 10 mg oral tablet) 10 mg PO tid clobetasol topical (clobetasol 0.05% topical cream) 1 appl topical Daily clopidogrel (clopidogrel 75 mg oral tablet) 75 mg PO Daily gabapentin (gabapentin 600 mg oral tablet) 600 mg PO qid hydroCHLOROthiazide metoprolol (metoprolol tartrate 50 mg oral tablet) 50 mg PO bid nitroglycerin (nitroglycerin 0.4 mg sublingual tablet) 0.4 mg SL q5min PRN: as needed for chest pain rosuvastatin (rosuvastatin 20 mg oral tablet) 20 mg PO qhs sildenafil (sildenafil 100 mg oral tablet) 100 mg PO Daily PRN: as needed for erectile dysfunction Admission Exam Per Admitting Provider Physical Exam: (relevant to the procedure, including heart and lung evaluation) General: Alert and oriented x 3 with proper grooming and hygiene Eyes: Pupils are equal reactive to light with accommodation. Extraocular movements are intact Throat: Posterior oropharynx clear with absence of edema, erythema or exudate. Patient has dentures Cardiac: Regular rate and rhythm with no murmurs or gallops appreciated Lungs: Clear to auscultation throughout with no wheezing, rales or rhonchi Abdomen: Obese, nondistended, nontender with NABS Extremities: _ Neuro: Cranial nerves II through XII are intact no motor or sensory deficit Skin: Normal in appearance with no open skin areas or discharge Principal Dx & Hospital Course #1 = Principal Diagnosis (1) S/P total knee arthroplasty: (2) Alcohol withdrawal delirium: (3) Head injury: (4) Fall: (5) HTN (hypertension): Plan Plan Pt is a 77yoM with PMhx significant for HTN, DMII, HLD, chronic pain, ED admitted for L TKA done on 01/13/2023. The hospitalist service was consulted after a fall with a possible head injury. POD#12 Alcohol withdrawal delirium On AWSS protocol with Ativan and Librium. PRN zyprexa ordered as well. Off restraints, and continues to receive as needed Ativan CT head on 01/13- with no acute change or fracture, MRI brain noted possible brain aneurysm, CTA head notes 8x8mm ALEX aneurysm. Recommend outpatient follow- up with neurosurgery. Delirium has resolved post operative Fall/Head injury Per pt when he was alert and oriented, he was not wearing socks when he fell. Slipped while trying to get out of bed. States that he hit his head on the nearby BP machine. Denied LOC, headache or pain in the area of the head that was hit. No visible bruising on exam. Neuro exam with no gross deficits at that time except in LLE that was recently operated on. Head CT was ordered- no acute changes. Pt remained stable but currently with AMS in setting of chronic alcohol use. Other imaging as noted above. No further work-up planned during this hospital stay. TKA Pt is POD #12 s/p L TKA, following with ortho Stated to previous provider that he did not hurt his left leg during the fall, notes it "gives out" all the time. Pain control, PT/OT Wound care per ortho Received Ancef perioperatively per protocol and was later placed on empiric Zosyn No evidence of active infection at this time and will stop additional abx. He is doing well clinically. HTN elevated in setting of alcohol withdrawal cont current medications and treatment for ETOH withdrawal and noncompliance with oral and antihypertensives Continue home regimen including hydrochlorothiazide, losartan, metoprolol twice daily DMII-chronic, well controlled per recent A1C 5.8 in November 12. Cont current therapy Hyperlipidemia-chronic, stable, continue home medications CODE STATUS: Full code Diet:DMII DVT Prophylaxis: ASA BID x 30 days per ortho Dispo:D/C to home today Pt was seen and examined in collaboration with Dr. Root, please see addendum Discharge Exam Gen: WD/WN, NAD, A&O x3 HEENT: Normocephalic, atraumatic, conjunctivae moist, sclerae anicteric, mucous membranes moist. Lung: Clear to Auscultation bilaterally, no wheezes/rales/rhonchi Heart: Regular rate, regular rhythm, no murmurs, rubs, or gallops Abdomen: Soft, NT, ND +BS x 4 Extremities: No edema, L TKR incision CDI with steris in place, no surrounding erythema Skin: Warm, no rash, negative turgor. Updated Medication List Medication Instructions Recorded Confirmed Type baclofen 10 mg tablet 10 mg PO TID PRN Muscle Spasm 01/12/19 01/13/23 History clobetasol 0.05 % topical cream 1 appln topical DAILY PRN Skin 01/12/19 01/13/23 History Irritation gabapentin 600 mg tablet 600 mg PO QID 01/12/19 01/13/23 History metoprolol tartrate 50 mg tablet 50 mg PO BID 01/12/19 01/13/23 History nitroglycerin 0.4 mg sublingual 0.4 mg sublingual Q5M PRN Chest 01/12/19 01/13/23 History tablet Pain rosuvastatin 20 mg tablet (Crestor) 20 mg PO QAM 01/12/19 01/13/23 History sildenafil 100 mg tablet 100 mg PO DAILY PRN Sexual Activity 02/01/19 01/13/23 History amlodipine 5 mg tablet 5 mg PO QAM 12/21/22 01/13/23 History cyanocobalamin (vitamin B-12) 1,000 mcg PO QAM 12/21/22 01/13/23 History 1,000 mcg tablet duloxetine 30 mg capsule,delayed 30 mg PO QAM 12/21/22 01/13/23 History release famotidine 20 mg tablet 20 mg PO QPM 12/21/22 01/13/23 History hydrochlorothiazide 25 mg tablet 25 mg PO 6XWK 12/21/22 01/13/23 History hydrochlorothiazide 50 mg tablet 50 mg PO WK 12/21/22 01/13/23 History losartan 100 mg tablet 100 mg PO QAM 12/21/22 01/13/23 History metformin 500 mg tablet 500 mg PO BID 12/21/22 01/13/23 History acetaminophen 500 mg tablet 1,000 mg PO Q8H post op pain 01/14/23 Rx (Tylenol Extra Strength) relief 30 days #180 tabs diclofenac sodium 75 mg 75 mg PO BID Post op pain and 01/14/23 Rx tablet,delayed release inflammation relief 30 days #60 tabs aspirin 81 mg tablet,delayed 81 mg PO BID DVT prophylaxis 30 01/25/23 Rx release days #60 tabs folic acid 1 mg tablet 1 mg PO QAM #30 tabs 01/25/23 Rx oxycodone 5 mg capsule 5 mg PO Q6H PRN pain #20 caps 01/25/23 Rx thiamine HCl (vitamin B1) 100 mg 100 mg PO QAM #30 tabs 01/25/23 Rx tablet Hospital Stay Data Consultations 01/13/23 16:03 Consult Hospitalist Routine Procedures Performed Operation Date: 01/13/23 07:00 Actual Procedures p Left Total Knee Arthroplasty(Left) - Demarcus Worthy MD Diagnostic Imagining Performed Knee X-Ray 01/13/23 08:53 XR knee LT 1 or 2V routine CLINICAL HISTORY: Surgical Post Op COMPARISON: Left knee radiographs December 28, 2022. FINDINGS: Left knee arthroplasty with polyethylene tibial component is noted. No periprosthetic fracture is noted. There are no unexpected radiopaque foreign bodies. IMPRESSION: Expected findings following left knee arthroplasty. ACT 112: Negative or not required by law. Electronically signed by: Hossein Mathur M.D. 01/13/2023 9:31 AM Pelvis X-Ray 01/13/23 16:02 XR pelvis 1-2V routine HISTORY: 77 years-old Male patient fell acute pelvic pain status post fall COMPARISON: CT 07/16/2017 TECHNIQUE: AP view the pelvis FINDINGS: Partially imaged hardware of the lumbosacral spine with iliac bones. Moderate left and severe right hip osteoarthritis. No acute fracture, dislocation or suspicious bone lesion identified. IMPRESSION: 1. No acute fracture or dislocation. 2. Severe right hip osteoarthritis. ACT 112: Negative or not required by law. The above report was generated using voice recognition software. It may contain grammatical, syntax or spelling errors. Electronically signed by: Antonio Robbins M.D. 01/13/2023 5:[address] 01/13/23 17:22 CT head/brain wo con CLINICAL HISTORY: 77 years-old Male with s/p fall and hit head post op. Acute head injury status post fall TECHNIQUE: Multiple axial CT images of the head were obtained without contrast. A dose lowering technique was utilized adhering to the principles of ALARA. CT DOSE: 625.80 mGy.cm COMPARISON: None. FINDINGS: No acute intracranial hemorrhage, midline shift, intracranial mass, hydrocephalus, territorial ischemia or abnormal extra-axial collection. Involutional changes with chronic microvascular ischemic disease. Cerebrovascu lar calcifications. The calvarium is intact. Mild mucosal thickening of the ethmoid air cells. The mastoid air cells are clear. IMPRESSION: No acute intracranial abnormality or calvarial fracture. ACT 112: Negative or not required by law. The above report was generated using voice recognition software. It may contain grammatical, syntax or spelling errors. Electronically signed by: Antonio Robbins M.D. 01/13/2023 6:56 PM Brain MRI 01/15/23 08:11 MRI OF THE BRAIN WITHOUT AND WITH IV CONTRAST CLINICAL HISTORY: Altered mental status. COMPARISON STUDY: Head CT January 13, 2023. TECHNIQUE: Utilizing a 1.5 Jyoti magnet and dedicated coil, multiplanar, multiecho imaging of the brain was performed pre and postcontrast administration. IV administration of 8 mL of Gadavist contrast was uneventful. FINDINGS: There are no foci of restricted diffusion to suggest acute infarct. No acute intracranial hemorrhage, midline shift or mass effect is present. Ventricular system is unremarkable. Basal cisterns are patent. Flow-voids for the major intracranial vessels are present. There is a 7 mm round flow void adjacent to the anterior cerebral arteries on axial T2-weighted sequence image 13 of 25. Otherwise, flow-voids are unremarkable. There is no intracranial mass or pathologic enhancement. Mild white matter T2 hyperintense foci suggest minimal small vessel disease. IMPRESSION: 1. No acute intracranial findings. 2. Suspected intracranial aneurysm, measuring approximately 7 mm, possibly arising from the anterior communicating artery. Nonemergent CTA of the head is recommended for further evaluation. 3. No intracranial mass or pathologic enhancement. ACT 112: Positive. There are findings on this exam that require communication between the performing entity and the patient following Patient Test Result Information Act ([place] Act 112) guidelines. Electronically signed by: Hossein Mathur M.D. 01/15/2023 6:43 PM Chest X-Ray 01/15/23 09:31 XR chest 1V portable CLINICAL HISTORY: for MRI clearance COMPARISON STUDY: Chest CT July 16, 2017. FINDINGS: Lung volumes are normal. Lungs are clear. There is no pneumothorax or pleural effusion. Cardiac size is stable. Mediastinal contours are normal. There is no evidence for pulmonary edema. No unexpected radiopaque foreign bodies within the chest are present. There is no pacemaker. Scoliosis hardware is partially imaged. IMPRESSION: No contraindication to MRI within the chest. ACT 112: Negative or not required by law. Electronically signed by: Hossein Mathur M.D. 01/15/2023 10:15 AM KUB X-Ray 01/15/23 09:31 KUB CLINICAL HISTORY: for MRI clearance COMPARISON STUDY: CT of the abdomen and pelvis July 16, 2017. KUB July 17, 2017. FINDINGS: Scoliosis hardware is incidentally noted. No unexpected radiopaque foreign bodies within the abdomen or pelvis are present. There is no evidence for a bowel obstruction. IMPRESSION: No contraindication to MRI within the abdomen or pelvis. ACT 112: Negative or not required by law. Electronically signed by: Hossein Mathur M.D. 01/15/2023 11:53 AM Head CTA 01/16/23 13:17 HEAD CTA HISTORY: followup brain MRI, possible aneurysm, altered mental status TECHNIQUE: Multiaxial CT images of the head were performed both before and after the intravenous administration of contrast to evaluate the major cerebral vessels. 3D/MIP images were also obtained. Sagittal and coronal reformats were reviewed. A dose lowering technique was utilized adhering to the principles of ALARA. COMPARISON: Brain MRI 01/15/2023. FINDINGS: Motion artifact. The paranasal sinuses and mastoid air cells are clear. There is no mass, hematoma, midline shift, acute infarct. Mild atrophy and microvascular ischemic changes are again noted. Mild to moderate calcified plaque within the bilateral carotid siphons. There is mild multifocal stenosis within the left carotid siphon due to the calcified plaque. The distal vertebral arteries and basilar artery show no significant stenosis or occlusion. The bilateral MCAs and hydroelectric station operator show no significant stenosis, occlusion, or aneurysm. The bilateral ACAs are widely patent. 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 IMPRESSION: 1. No acute infarct or intracranial hemorrhage. 2. No significant stenosis or occlusion within the [place]. 3. 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 ACT 112: Negative or not required by law. Electronically signed by: Pavan Parekh M.D. 01/16/2023 2:34 PM Chest X-Ray 01/18/23 10:36 XR chest 1V portable CLINICAL HISTORY: new post op hypoxia COMPARISON STUDY: Chest CT July 16, 2017. Chest radiograph January 15, 2023. FINDINGS: Scoliosis hardware is incidentally noted. A 1.5 x 0.5 cm radiodensity projects over the mid neck. Lung volumes are normal. Lungs are clear. There is no pneumothorax or pleural effusion. Cardiac size is normal. Mediastinal contours are normal. There is no evidence for pulmonary edema. IMPRESSION: 1. No acute cardiopulmonary findings. 2. 1.5 x 0.5 cm radiodensity which projects over the mid neck. This may be on the patient however an ingested foreign body cannot be excluded. AP and lateral neck radiographs are recommended for further evaluation. ACT 112: Negative or not required by law. Electronically signed by: Hossein Mathur M.D. 01/18/2023 11:18 AM Cervical Spine X-Ray 01/18/23 11:45 CERVICAL SPINE 4 VIEWS CLINICAL HISTORY: Foreign body assessment. FINDINGS: AP, lateral, odontoid, and swimmer's views of the cervical spine are obtained. No prior studies are available for comparison at the time of dictation. The skeletal structures are osteopenic. There is no radiographic evidence of fracture or subluxation. Vertebral body height is maintained throughout the cervical spine. Alignment is preserved. Note that C6 and C7 are only seen on the swimmer's view. Anterior osteophytes are seen throughout. The spinolaminar line is intact. Fusion hardware is seen in the upper thoracic spine. The odontoid process and lateral masses appear intact as seen on the open-mouth view. The atlantodental articulation is maintained noting productive degenerative change. The spinous processes appear intact. There is moderate disc space narrowing at C5-C6 and C6-C7 with posterior disc osteophyte complexes at these levels. Multilevel facet arthropathy is observed. The prevertebral soft tissues are normal as visualized. No radiodense foreign body is seen. Apical lung parenchyma is clear as imaged. There is atherosclerotic calcification over the carotid bulbs. IMPRESSION: 1. No acute bony abnormality is seen involving the cervical spine. 2. Osteopenia and spondylotic change as above. 3. No radiodense foreign body is seen. Dictated: 01/18/2023 12:57 PM Transcribed: 01/18/2023 1:20 PM [place] [id number] [facility]IM[facility] [id number] Electronically signed by: Jean Marie Melton M.D. 01/18/2023 4:30 PM Pending Results Patient Have Any Pending Studies at Discharge: No Discharge Instructions Given to Patient (Per Discharging Provider) Post-operative Instructions Dear Patient and Family/Friends, Before you are discharged from the hospital, it is important to know what to expect when you get home after surgery. To that end, we have created this sheet of discharge instructions which covers many commonly asked questions. Make sure you go through this sheet in its entirety with your nurse before you are discharged. Please note that we will go over the specifics of your surgery and recovery when you return for your first post-operative visit. Sincerely, Dr. Worthy Medications 1. Oxycodone 5 mg: take 1-2 tabs every 4-6 hours as needed for pain control. This will be sent to your pharmacy. 2. Diclofenac Sodium 75 mg: take 1 tab twice daily for 30 days post operatively for pain and inflammation relief. This will be sent to your pharmacy with 1 refill. 3. Aspirin 81 mg: increase your daily aspirin to twice daily for 30 days post operatively for blood clot prevention. 4. Extra Strength Tylenol 500 mg: take 2 tabs every 6-8 hours as needed for additional pain relief. Please purchase. Pain Expect to be in a fair amount of pain after surgery. Remember, our goal is not to eliminate your pain, but to make it tolerable. It is a good idea to stay ahead of your pain by taking the medications you were prescribed once you get home. Typically, the pain starts improving 3-7 days after surgery. You should start weaning off the narcotic pain medication (oxycodone, hydrocodone, hydromorphone, morphine) as soon as your pain improves. Please call our office if your pain is not adequately controlled. Ice Ice your operative site at least 5 times a day for 15-30 minutes at a time. Make sure you have a thin cloth between the ice or cooling unit and your skin to prevent frazier bite. This is especially important if you received a nerve block. Continue icing your operative site for the first 5-7 days after surgery, then as needed. Diet/Nausea/Vomiting Start by drinking clear liquids and eating crackers. If you can tolerate this, then you may resume your normal diet. If you feel nauseated or vomit, take Zofran/ondansetron (if prescribed). Please call our office if you have intractable nausea or vomiting, or, if after hours, you may go to the Emergency Room for help. Constipation Constipation is a common side effect of narcotic pain medication. If you have not had a bowel movement within 2 days after surgery, we recommend purchasing an over the counter laxative such as Milk of Magnesia, Dulcolax, or Miralax from a local pharmacy, and taking it as instructed. Call our clinic if any questions. Slings and Braces If you were placed in a sling or brace, it must be worn at all times, including sleep. You may remove your sling or brace for physical therapy, home exercises, and showering. The length of time you will be in your brace and range of motion restrictions depends on what surgery you had; these details will be reviewed at your first post-operative appointment. Nerve block The anesthesia team sometimes places a nerve block to help with post-operative pain control. This results in significant numbness and inability to move the extremity. The nerve block usually wears off in 8-12 hours, but sometimes can last up to 24 hours. Please call our office if you are still unable to move your extremity after 24 hours, unless you received a pain pump to take home. Nerve blocks typically wear off quickly, so start taking pain medication as soon as you start feeling soreness near your surgical site. Weight bearing and Range of Motion. Do not bear any weight through your operative extremity immediately after surgery. If you had upper extremity surgery, do not lift anything with that arm. If you are in a knee brace, keep it locked in place until your follow-up. We will discuss your weight bearing, range of motion, and lifting restrictions in detail at your first post-operative appointment. Continuous Passive Motion (CPM) Machine If you were prescribed a CPM machine, it will start after your first post- operative appointment, at which time we will give you instructions on the range of motion settings and duration of treatment Physical therapy You will be given a prescription for physical therapy or occupational therapy at your first post-operative appointment. Typically, patients start therapy within 1 week of surgery Wound care and showering We will inspect your wound at your first post-operative visit, and may do a dressing change at that time. Most patients will be in a water-proof dressing that is removed 14 days after surgery. It is normal to see some dried blood on the dressing. Do not remove your dressing, paper strips or sutures yourself unless you are given permission. Showering is allowed the day after surgery. Do not scrub or remove any dressings. The wound should not be submerged underwater (i.e. in a bathtub or pool) until 4 weeks after surgery MODESTA stockings If you were given white stockings, these are to be worn at all times except to shower (on both legs) for the first 2 weeks after surgery. Driving You may not drive while taking narcotic pain medication or while in a cast, splint, sling or brace. You, the patient, need to make the final determination about when you are safe to drive, however, the earliest you may consider driving after surgery is below: Hand/Wrist/Elbow Surgery: 3 days Shoulder Surgery: 2 weeks Hip,/Knee/Ankle Surgery: 4 weeks Fracture repair: 6 weeks Return to Work Your return to work depends on what surgery was done and what type of work you do. Please bring any paperwork your employer needs completed to your first post-operative visit. Also, bring a description of your job duties, as this helps us to understand what risks you may face at work. Travel Avoid long distance travel (greater than 1 hour) in airplanes and cars for the first 6 weeks after surgery. If you must travel, you need to have a Doppler ultrasound done before you travel to rule out a blood clot in your legs. Follow-up You should have a follow-up appointment already scheduled 1-2 days after surgery. If not, please contact our office to make this appointment before you leave the hospital. When to call the office It is normal to have swelling and bruising in the limb that was operated on. This will improve with time. It is also normal to have fevers for the first 2 days after surgery. Reasons you should call your doctor include: Uncontrolled pain; Nausea, vomiting, or constipation that does not improve with medication; Fevers over 101.5, chills, sweats; Drainage or bleeding from the wound; Foul odor; Spreading areas of redness; Any other concerns Total Time Total Time Spent Total Time Spent (In Minutes): 45 minutes Supervising Physician Co-Signing Physician Notes Attending addendum The patient was seen and examined in telemetry unit He has been feeling much better and denies any significant symptoms His pain in the left knee and swelling have improved Has been ambulating in the hallway without any significant difficulties On examination No apparent distress at rest Hemodynamically stable Left knee-minimal swelling and tenderness locally and movement of the knee is minimally painful His labs, medications reviewed Status post left knee surgery remains medically stable Will be discharged home this afternoon Agree with assessment and plan as outlined above by Junie Root
--- NOTE | 2023-01-25 10:57 | Orthopedic Progress Note ---
Date of Service January 25, 2023 Assessment & Plan (1) S/P total knee arthroplasty: Plan: PT/OT Ice with easy wrap Discontinue subQ heparin and begin aspirin 81 mg twice daily Weightbearing as tolerated with walker or cane assistance Pain control with p.o. medication Follow-up at [facility] orthopedics as scheduled tomorrow morning We will discuss outpatient physical therapy at tomorrow's visit Admission and Anticipated Discharge Date Admission Date: January 15, 2023 Subjective This 77-year-old male seen today in follow-up for a left total knee arthroplasty. He states that last night his Silverlon dressing was removed by the bill peddler nurse. I applied a new 1 during his visit today. He is currently walking with the therapist the East third floor without difficulty. He was initially scheduled to be [facility] today however his authorization had and he is just going to go home. He is scheduled to s jhonathan ferguson in the office tomorrow for his 2-week follow-up. We will get him established with outpatient physical therapy at that point. Currently he denies chest pain, shortness of breath, fever, chills, sweats, lethargy, numbness or tingling in his left lower extremity. States his pain is well controlled with p.o. pain medication. Review of Systems Review of Systems: Please refer to HPI Physical Exam Physical Exam: Left knee: A New silverlon dressing was applied this AM. He does have some mild edema about the knee but no erythema, ecchymosis or significant effusion. Able to move digits in left LE. He is neurovascularly intact in the left lower extremity. Active knee range of motion is from 2 degrees of extension to about 110 degrees of flexion. He is able to perform an active straight leg raise test and actively dorsi and plantarflex foot without issue. He was advised to be in the knee immobilizer when he is ambulatory. Results & Data Vital Signs (Past 12 Hours) Vital Signs Temp Pulse Pulse Resp BP BP Pulse Ox 01/25/23 09:33 36.8 C 66 16 121/63 98 01/25/23 07:43 01/25/23 07:35 35.8 C L 98 H 16 153/79 H 98 O2 Del Method 01/25/23 09:33 01/25/23 07:43 Room Air 01/25/23 07:35 Room Air Diagnostic Findings Laboratory Results WBC 7.32 K/ul (4.8-10.8) 01/23/23 06:13 RBC 4.21 M/uL (4.70-6.10) L 01/23/23 06:13 Hgb 12.3 g/dl (14.0-18.0) L 01/23/23 06:13 Hct 37.0 % (42.0-52.0) L 01/23/23 06:13 MCV 87.9 fL (80.0-100.0) 01/23/23 06:13 MCH 29.2 pg (25.0-34.0) 01/23/23 06:13 MCHC 33.2 g/dL (32.0-36.0) 01/23/23 06:13 RDW Std Deviation 45.5 fL (36.4-46.3) 01/23/23 06:13 RDW Coeff of Art 14.4 % (11.5-14.5) 01/23/23 06:13 Plt Count 302 K/uL (130-400) 01/23/23 06:13 MPV 11.4 fL (9.4-12.4) 01/23/23 06:13 Immature Gran % (Auto) 1.9 % 01/23/23 06:13 Neut % (Auto) 68.8 % 01/23/23 06:13 Lymph % (Auto) 16.0 % 01/23/23 06:13 [place] % (Auto) 10.1 % 01/23/23 06:13 Eos % (Auto) 2.5 % 01/23/23 06:13 Baso % (Auto) 0.7 % 01/23/23 06:13 Neut # (Auto) 5.04 K/uL (1.40-6.50) 01/23/23 06:13 Lymph # (Auto) 1.17 K/uL (1.20-3.40) L 01/23/23 06:13 [place] # (Auto) 0.74 K/uL (0.11-0.59) H 01/23/23 06:13 Eos # (Auto) 0.18 K/uL (0.00-0.50) 01/23/23 06:13 Baso # (Auto) 0.05 K/uL (0.00-0.20) 01/23/23 06:13 Immature Gran # (Auto) 0.14 K/uL (0.01-0.20) 01/23/23 06:13 Sodium 141 mmol/L (136-145) 01/23/23 06:13 Potassium 3.2 mmol/L (3.5-5.1) L 01/23/23 06:13 Chloride 102 mmol/L (98-107) 01/23/23 06:13 Carbon Dioxide 32 mmol/L (21-32) 01/23/23 06:13 Anion Gap 7 (3-11) 01/23/23 06:13 BUN 22 mg/dl (6-23) 01/23/23 06:13 Creatinine 0.80 mg/dl (0.6-1.4) 01/23/23 06:13 Est Cr Clr Drug Dosing 76.0 ml/min 01/23/23 06:13 Est GFR ( Amer) 100.6 ml/min 01/23/23 06:13 Est GFR (Non-Af Amer) 86.8 ml/min 01/23/23 06:13 BUN/Creatinine Ratio 27.5 (10-20) H 01/23/23 06:13 Glucose 91 mg/dl (70-99(Fasting)) 01/23/23 06:13 POC Glucose 105 mg/dl (70-99) H 01/24/23 16:45 Estimat Average Glucose 120 mg/dl 01/14/23 08:31 Hemoglobin A1c 5.8 % (4.5-5.6) H 01/14/23 08:31 Calcium 9.2 mg/dl (8.6-10.3) 01/23/23 06:13 Phosphorus 2.6 mg/dl (2.5-4.9) 01/19/23 08:03 Magnesium 2.2 mg/dl (1.7-2.4) 01/19/23 08:03 Total Bilirubin 1.4 mg/dl (0.2-1.0) H 01/16/23 20:43 Direct Bilirubin 0.2 mg/dl (0-0.2) 01/16/23 20:43 AST 14 U/L (13-39) 01/16/23 20:43 ALT 9 U/L (7-52) 01/16/23 20:43 Alkaline Phosphatase 50 U/L (34-104) 01/16/23 20:43 Total Protein 6.5 gm/dl (6.0-8.3) 01/16/23 20:43 Albumin 3.7 gm/dl (3.4-5.0) 01/16/23 20:43 SARS-CoV-2 (PCR) NEGATIVE (Negative) 01/25/23 09:30 Hepatitis C Ab (EIA) NON-REACTIVE (NON-REACTIVE) 01/16/23 06:37 Blood Type B Positive 01/13/23 06:02 Antibody Screen NEGATIVE 01/13/23 06:02 Impressions Knee X-Ray 01/13/23 08:53 XR knee LT 1 or 2V routine CLINICAL HISTORY: Surgical Post Op COMPARISON: Left knee radiographs December 28, 2022. FINDINGS: Left knee arthroplasty with polyethylene tibial component is noted. No periprosthetic fracture is noted. There are no unexpected radiopaque foreign bodies. IMPRESSION: Expected findings following left knee arthroplasty. ACT 112: Negative or not required by law. Electronically signed by: Hossein Mathur M.D. 01/13/2023 9:31 AM Pelvis X-Ray 01/13/23 16:02 XR pelvis 1-2V routine HISTORY: 77 years-old Male patient fell acute pelvic pain status post fall COMPARISON: CT 07/16/2017 TECHNIQUE: AP view the pelvis FINDINGS: Partially imaged hardware of the lumbosacral spine with iliac bones. Moderate left and severe right hip osteoarthritis. No acute fracture, dislocation or suspicious bone lesion identified. IMPRESSION: 1. No acute fracture or dislocation. 2. Severe right hip osteoarthritis. ACT 112: Negative or not required by law. The above report was generated using voice recognition software. It may contain grammatical, syntax or spelling errors. Electronically signed by: Antonio Robbins M.D. 01/13/2023 5:[address] 01/13/23 17:22 CT head/brain wo con CLINICAL HISTORY: 77 years-old Male with s/p fall and hit head post op. Acute head injury status post fall TECHNIQUE: Multiple axial CT images of the head were obtained without contrast. A dose lowering technique was utilized adhering to the principles of ALARA. CT DOSE: 625.80 mGy.cm COMPARISON: None. FINDINGS: No acute intracranial hemorrhage, midline shift, intracranial mass, hydrocephalus, territorial ischemia or abnormal extra-axial collection. Involutional changes with chronic microvascular ischemic disease. Cerebrovascular calcifications. The calvarium is intact. Mild mucosal thickening of the ethmoid air cells. The mastoid air cells are clear. IMPRESSION: No acute intracranial abnormality or calvarial fracture. ACT 112: Negative or not required by law. The above report was generated using voice recognition software. It may contain grammatical, syntax or spelling errors. Electronically signed by: Antonio Robbins M.D. 01/13/2023 6:56 PM Brain MRI 01/15/23 08:11 MRI OF THE BRAIN WITHOUT AND WITH IV CONTRAST CLINICAL HISTORY: Altered mental status. COMPARISON STUDY: Head CT January 13, 2023. TECHNIQUE: Utilizing a 1.5 Jyoti magnet and dedicated coil, multiplanar, multiecho imaging of the brain was performed pre and postcontrast administration. IV administration of 8 mL of Gadavist contrast was uneventful. FINDINGS: There are no foci of restricted diffusion to suggest acute infarct. No acute intracranial hemorrhage, midline shift or mass effect is present. Ventricular system is unremarkable. Basal cisterns are patent. Flow-voids for the major intracranial vessels are present. There is a 7 mm round flow void adjacent to the anterior cerebral arteries on axial T2-weighted sequence image of . Otherwise, flow-voids are unremarkable. There is no intracranial mass or pathologic enhancement. Mild white matter T2 hyperintense foci suggest minimal small vessel disease. IMPRESSION: 1. No acute intracranial findings. 2. Suspected intracranial aneurysm, measuring approximately 7 mm, possibly arising from the anterior communicating artery. Nonemergent CTA of the head is recommended for further evaluation. 3. No intracranial mass or pathologic enhancement. ACT 112: Positive. There are findings on this exam that require communication between the performing entity and the patient following Patient Test Result Information Act ([place] Act 112) guidelines. Electronically signed by: Hossein Mathur M.D. 01/15/2023 6:43 PM KUB X-Ray 01/15/23 09:31 KUB CLINICAL HISTORY: for MRI clearance COMPARISON STUDY: CT of the abdomen and pelvis July 16, 2017. KUB July 17, 2017. FINDINGS: Scoliosis hardware is incidentally noted. No unexpected radiopaque foreign bodies within the abdomen or pelvis are present. There is no evidence for a bowel obstruction. IMPRESSION: No contraindication to MRI within the abdomen or pelvis. ACT 112: Negative or not required by law. Electronically signed by: Hossein Mathur M.D. 01/15/2023 11:53 AM Head CTA 01/16/23 13:17 HEAD CTA HISTORY: followup brain MRI, possible aneurysm, altered mental status TECHNIQUE: Multiaxial CT images of the head were performed both before and after the intravenous administration of contrast to evaluate the major cerebral vessels. 3D/MIP images were also obtained. Sagittal and coronal reformats were reviewed. A dose lowering technique was utilized adhering to the principles of ALARA. COMPARISON: Brain MRI 01/15/2023. FINDINGS: Motion artifact. The paranasal sinuses and mastoid air cells are clear. There is no mass, hematoma, midline shift, acute infarct. Mild atrophy and microvascular ischemic changes are again noted. Mild to moderate calcified plaque within the bilateral carotid siphons. There is mild multifocal stenosis within the left carotid siphon due to the calcified plaque. The distal vertebral arteries and basilar artery show no significant stenosis or occlusion. The bilateral MCAs and cobol engineer show no significant stenosis, occlusion, or aneurysm. The bilateral ACAs are widely patent. 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 IMPRESSION: 1. No acute infarct or intracranial hemorrhage. 2. No significant stenosis or occlusion within the [place]. 3. 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 ACT 112: Negative or not required by law. Electronically signed by: Pavan Parekh M.D. 01/16/2023 2:34 PM Chest X-Ray 01/18/23 10:36 XR chest 1V portable CLINICAL HISTORY: new post op hypoxia COMPARISON STUDY: Chest CT July 16, 2017. Chest radiograph January 15, 2023. FINDINGS: Scoliosis hardware is incidentally noted. A 1.5 x 0.5 cm radiodensity projects over the mid neck. Lung volumes are normal. Lungs are clear. There is no pneumothorax or pleural effusion. Cardiac size is normal. Mediastinal contours are normal. There is no evidence for pulmonary edema. IMPRESSION: 1. No acute cardiopulmonary findings. 2. 1.5 x 0.5 cm radiodensity which projects over the mid neck. This may be on the patient however an ingested foreign body cannot be excluded. AP and lateral neck radiographs are recommended for further evaluation. ACT 112: Negative or not required by law. Electronically signed by: Hossein Mathur M.D. 01/18/2023 11:18 AM Cervical Spine X-Ray 01/18/23 11:45 CERVICAL SPINE 4 VIEWS CLINICAL HISTORY: Foreign body assessment. FINDINGS: AP, lateral, odontoid, and swimmer's views of the cervical spine are obtained. No prior studies are available for comparison at the time of dictation. The skeletal structures are osteopenic. There is no radiographic evidence of fracture or subluxation. Vertebral body height is maintained throughout the cervical spine. Alignment is preserved. Note that C6 and C7 are only seen on the swimmer's view. Anterior osteophytes are seen throughout. The spinolaminar line is intact. Fusion hardware is seen in the upper thoracic spine. The odontoid process and lateral masses appear intact as seen on the open-mouth view. The atlantodental articulation is maintained noting productive degenerative change. The spinous processes appear intact. There is moderate disc space narrowing at C5-C6 and C6-C7 with posterior disc osteophyte complexes at these levels. Multilevel facet arthropathy is observed. The prevertebral soft tissues are normal as visualized. No radiodense foreign body is seen. Apical lung parenchyma is clear as imaged. There is atherosclerotic calcification over the carotid bulbs. IMPRESSION: 1. No acute bony abnormality is seen involving the cervical spine. 2. Osteopenia and spondylotic change as above. 3. No radiodense foreign body is seen. Dictated: 01/18/2023 12:57 PM Transcribed: 01/18/2023 1:20 PM [place] [id number] [email or web address] [id number] Electronically signed by: Jean Marie Melton M.D. 01/18/2023 4:30 PM
== END 2023-01-25 11:12 | disposition home health service (06) | DRG 470 ==
LOC: ASU 05:13 → PACUINP 05:13 → 3N 11:49 → 2S 01-15 01:16 → SUATTDRO 01-15 10:03 → 3E 01-20 18:26

== ENCOUNTER 2024-02-25 00:16 | Inpatient (IN) ==
[2024-02-25 00:51] LABS: Basophils # (auto) 0.03 K/uL (0.00-0.20); Basophils % (auto) 0.4 %; Eosinophils # (auto) 0.03 K/uL (0.00-0.50); Eosinophils % (auto) 0.4 %; Hemoglobin 12.4 g/dl (14.0-18.0); Immature Granulocytes # (auto) 0.04 K/uL (0.01-0.20); Immature Granulocytes % (auto) 0.5 %; Lymphocytes # (auto) 0.99 K/uL (1.20-3.40); Lymphocytes % (auto) 13.2 %; Mean Corpuscular Hemoglobin 29.4 pg (25.0-34.0); Mean Corpuscular Hgb Conc 31.8 g/dL (32.0-36.0); Mean Corpuscular Volume 92.4 fL (80.0-100.0); Mean Platelet Volume 11.6 fL (9.4-12.4); Monocytes # (auto) 0.59 K/uL (0.11-0.59); Monocytes % (auto) 7.9 %; Neutrophils # (auto) 5.83 K/uL (1.40-6.50); Neutrophils % (auto) 77.6 %; Platelet Count 154 K/uL (130-400); RDW Coefficient of Variation 13.9 % (11.5-14.5); RDW Standard Deviation 46.8 fL (36.4-46.3); Red Blood Count 4.22 M/uL (4.70-6.10); White Blood Count 7.51 K/ul (4.8-10.8)
[2024-02-25 01:08] LABS: Albumin Globulin Ratio 1.8 (0.9-2); Albumin Level 4.7 gm/dl (3.4-5.0); BUN Creatinine Ratio 22.4 (10-20); Bilirubin,Total 1.3 mg/dl (0.2-1.0); Globulin 2.6 gm/dl (2.5-4.0); Total Protein 7.3 gm/dl (6.0-8.3)
--- NOTE | 2024-02-25 03:22 | Emergency Department Note ---
Impression & Plan Right leg weakness, Fall ED Provider Note NAME: CHINO ROBBINS AGE: 78 SEX: M : 1945 ARRIVES VIA: Ambulance INFORMANT: Patient, ED PROVIDER(S): Rimma Chilel MD CHIEF COMPLAINT: Right lower extremity weakness HPI: This is a 78-year-old male presenting for weakness. Patient notes that he has bilateral legs are weak with right greater than left weakness. He notes that he has been falling more frequently. He notes he has been urinating himself because he is unable to get to the bathroom in time due to his weakness. He notes no head trauma. Notes no current weakness in the upper extremities. No fever, chills, nausea or vomiting. ROS: See above HPI for pertinent positives & negatives. A total of 10 systems reviewed and were otherwise negative. PAST MEDICAL HISTORY: See Below PAST SURGICAL HISTORY: See Below FAMILY HISTORY: See Below SOCIAL HISTORY: See Below HOME MEDICATIONS: See Below ALLERGIES: See Below VITALS: See Below PHYSICAL EXAMINATION: General: resting comfortably in no acute distress Head: Normocephalic and atraumatic Eyes: Normal inspection, extraocular muscles intact Ear, nose, throat: Normal external exam Neck: Normal range of motion Respiratory: lungs clear to auscultation bilaterally Cardiovascular: Regular rate/rhythm, no murmur GI: soft, nontender, no guarding or rebound Extremities: nontender, moves all extremities Neuro: The patient awake and alert, appropriately conversive, no focal deficits, symmetric faces Skin: Warm, dry, and intact MEDICAL DECISION MAKING: This is a 78-year-old male presenting for weakness. Patient unstable on his feet with right greater than left lower extremity weakness for multiple day/weeks. Consider stroke, TIA, radiculopathy. Will do head CT to rule today for trauma and or stroke -Bloodwork is reviewed showing no significant leukocytosis, anemia, electrolyte or creatinine abnormality -ECG independently interpreted by me with normal sinus rhythm, rate of 67, normal axis, normal [place], normal QRS, normal QTc, no ST segment elevations consistent with STEMI criteria -Not have clear neurologic deficits but he is weaker objectively in the right lower extremity. Unable to keep his leg up compared to the left -Bloodwork is reviewed showing no significant leukocytosis, anemia, electrolyte or creatinine abnormality -CT of the head reveals no acute intracranial process -Care discussed with Dr. Neely for admission at this time Differential diagnosis: Sciatica, stroke, failure to thrive, anemia, sepsis ER treatment provided: See below Diagnostics interpreted by me: ECG: ECG independently interpreted by me with normal sinus rhythm, rate of 67, normal axis, normal [place], normal QRS, normal QTc, no ST segment elevations consistent with STEMI criteria Cardiac Monitoring: An order was placed for continuous cardiac monitoring. The monitor shows a rate of 68 with sinus rhythm. Laboratory studies: As stated above and show below. Imaging studies: See below. Past Med/Surg History Problem List (Updated 02/25/24 @ 08:00 by Rimma Chilel MD) Fall (Acute) Right leg weakness (Acute) Alcohol withdrawal delirium Fall Head injury S/P total knee arthroplasty Encounter for pre-operative examination Lumbar stenosis with neurogenic claudication (Acute 02/11/14) Back pain (Acute) C. difficile colitis Colitis HTN (hypertension) controlled, stable per pt Medical History Coronary artery disease s/p 3 CONNOR 2010 Diabetes mellitus, type 2 NIDDM Gout HTN (hypertension) controlled, stable per pt Hyperlipidemia Medical marijuana use Neuropathy of both feet Surgical History History of cardiac cath 03/20/11 @ [facility] with 3 CONNOR placed (pt states was on plavix taken off roughly 6 months ago)--follows with Emerson Hampton PA-C @ [place] History of carpal tunnel release of both wrists History of colonoscopy History of decompression of ulnar nerve right History of heart artery stent 3 CONNOR placed 03/20/11 @ [facility] History of hernia surgery History of repair of right rotator cuff History of spinal fusion x3--per pt from cervical to lumbar region, normal ROM History of tooth extraction Status post trigger finger release Family History Other No family history of adverse response to anesthesia Social History Smoking Status: Former smoker Tobacco Type: Cigarettes Second Hand Exposure: No; Do You Dip or Chew Tobacco: No; Hx Alcohol Use: Yes Alcohol type: beer Hx Substance Use: No Preferred Language: Faroese Communication Ability: Effective 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 Beliefs That Will Affect Care: None Current Living Situation: Alone Feels Safe at Home: Yes Assistive Devices: None Allergies Allergies Allergy/AdvReac Type Severity Reaction Status Date / Time lisinopril AdvReac Mild Cough Verified 02/25/24 02:25 Home Meds Home Medications Medication Instructions Recorded Confirmed clobetasol 0.05 % topical cream 1 appln topical DAILY PRN Skin 01/12/19 02/25/24 Irritation gabapentin 600 mg tablet 600 mg PO QID 01/12/19 02/25/24 metoprolol tartrate 50 mg tablet 50 mg PO BID 01/12/19 02/25/24 rosuvastatin 20 mg tablet (Crestor) 20 mg PO QAM 01/12/19 02/25/24 sildenafil 100 mg tablet 100 mg PO DAILY PRN Sexual Activity 02/01/19 02/25/24 amlodipine 5 mg tablet 5 mg PO QAM 12/21/22 02/25/24 cyanocobalamin (vitamin B-12) 1,000 mcg PO QAM 12/21/22 02/25/24 1,000 mcg tablet famotidine 20 mg tablet 20 mg PO QPM 12/21/22 02/25/24 hydrochlorothiazide 25 mg tablet 25 mg PO [id number] 12/21/22 02/25/24 hydrochlorothiazide 50 mg tablet 50 mg PO WK 12/21/22 02/25/24 losartan 100 mg tablet 100 mg PO QAM 12/21/22 02/25/24 metformin 500 mg tablet 500 mg PO BID 12/21/22 02/25/24 acetaminophen 650 mg 650 mg PO Q12H 02/25/24 02/25/24 tablet,extended release (Arthritis Pain Relief (acetaminophen) ER) baclofen 20 mg tablet 20 mg PO BID 02/25/24 02/25/24 duloxetine 60 mg capsule,delayed 60 mg PO QAM 02/25/24 02/25/24 release Previous Rx's Medication Instructions Recorded oxycodone 5 mg capsule 5 mg PO Q6H PRN pain #20 caps 01/25/23 Results & Data (ED) Vital Signs Vital Signs - 24 hr 02/25/24 00:36 02/25/24 01:15 02/25/24 02:24 Temperature 36.7 C Temperature Source Oral Pulse Rate 72 70 Pulse Rate [Apical] 67 Pulse Rhythm Regular Pulse Rhythm [Apical] Regular Pulse Strength Normal Pulse Strength [Apical] Normal Respiratory Rate 18 17 Respiratory Effort / Characteristics Non-Labored Spontaneous Non-Labored Spontaneous Respiratory Depth Normal Normal Respiratory Pattern Regular Regular Blood Pressure 146/63 H Blood Pressure [Left Arm] 125/73 Blood Pressure Mean 90 Blood Pressure Mean [Left Arm] 90 Blood Pressure Position Lying Blood Pressure Position [Left Arm] Lying Pulse Oximetry 98 97 Oxygen Delivery Method Room Air Room Air Sepsis Recent Fever Within 48 Hours No Sepsis New/Unexplained Change in Mental Status N/A Sepsis Action Taken by Nursing No Action Required 02/25/24 03:00 Temperature Temperature Source Pulse Rate Pulse Rate [Apical] 65 Pulse Rhythm Pulse Rhythm [Apical] Regular Pulse Strength Pulse Strength [Apical] Normal Respiratory Rate 18 Respiratory Effort / Characteristics Non-Labored Spontaneous Respiratory Depth Normal Respiratory Pattern Regular Blood Pressure Blood Pressure [Left Arm] 147/67 H Blood Pressure Mean Blood Pressure Mean [Left Arm] 93 Blood Pressure Position Blood Pressure Position [Left Arm] Lying Pulse Oximetry 98 Oxygen Delivery Method Room Air Sepsis Recent Fever Within 48 Hours Sepsis New/Unexplained Change in Mental Status Sepsis Action Taken by Nursing Laboratory Data 02/25/24 06:27 02/25/24 06:27 Lab Results 02/25/24 Range/Units 00:40 WBC 7.51 (4.8-10.8) K/ul RBC 4.22 L (4.70-6.10) M/uL Hgb 12.4 L (14.0-18.0) g/dl Hct 39.0 L (42.0-52.0) % MCV 92.4 (80.0-100.0) fL MCH 29.4 (25.0-34.0) pg MCHC 31.8 L (32.0-36.0) g/dL RDW Std Deviation 46.8 H (36.4-46.3) fL RDW Coeff of Art 13.9 (11.5-14.5) % Plt Count 154 (130-400) K/uL MPV 11.6 (9.4-12.4) fL Immature Gran % (Auto) 0.5 % Neut % (Auto) 77.6 % Lymph % (Auto) 13.2 % [place] % (Auto) 7.9 % Eos % (Auto) 0.4 % Baso % (Auto) 0.4 % Neut # (Auto) 5.83 (1.40-6.50) K/uL Lymph # (Auto) 0.99 L (1.20-3.40) K/uL [place] # (Auto) 0.59 (0.11-0.59) K/uL Eos # (Auto) 0.03 (0.00-0.50) K/uL Baso # (Auto) 0.03 (0.00-0.20) K/uL Immature Gran # (Auto) 0.04 (0.01-0.20) K/uL Sodium 143 (136-145) mmol/L Potassium 4.0 (3.5-5.1) mmol/L Chloride 105 (98-107) mmol/L Carbon Dioxide 28 (21-32) mmol/L Anion Gap 10 (3-11) BUN 30 H (6-23) mg/dl Creatinine 1.34 (0.6-1.4) mg/dl Est Cr Clr Drug Dosing 43.0 ml/min eGFR 54.56 BUN/Creatinine Ratio 22.4 H (10-20) Glucose 125 H (70-99(Fasting)) mg/dl Calcium 10.0 (8.6-10.3) mg/dl Magnesium 2.2 (1.7-2.4) mg/dl Total Bilirubin 1.3 H (0.2-1.0) mg/dl AST 13 (13-39) U/L ALT 12 (7-52) U/L Alkaline Phosphatase 47 (34-104) U/L Total Protein 7.3 (6.0-8.3) gm/dl Albumin 4.7 (3.4-5.0) gm/dl Globulin 2.6 (2.5-4.0) gm/dl Albumin/Globulin Ratio 1.8 (0.9-2) TSH 0.678 (0.300-4.500) uIu/ml Administered Medications Sodium Chloride (1/2 Nss) 1,000 mls @ 60 mls/hr IV .[id number] ONE Stop: 02/25/24 20:23 Last Admin: 02/25/24 04:07 Dose: 60 mls/hr Documented By: NINI Discontinued Medications Clopidogrel Bisulfate (Clopidogrel Bisulfate 75 Mg Tab) 75 mg PO NOW ONE Stop: 02/25/24 04:53 Last Admin: 02/25/24 05:18 Dose: 75 mg Documented By: NINI Thiamine HCl 100 mg/ Syringe 10 mls @ 2 mls/min IV NOW STA Stop: 02/25/24 03:55 Last Admin: 02/25/24 04:08 Dose: 2 mls/min Documented By: NINI Imaging Data Radiologist's Impression: Head CT 02/25/24 01:20 Exam(s): CT HEAD Without Contrast EXAM: CT Head Without Intravenous Contrast CLINICAL HISTORY: Reason for exam: R > L weakness, weakness. TECHNIQUE: Axial computed tomography images of the head/brain without intravenous contrast. CTDI is 36.18 mGy and DLP is 625.8 mGy-cm. Automated exposure control was utilized for the study. A dose lowering technique was utilized adhering to the principles of ALARA. 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 Associated artifact somewhat limits evaluation. Mild volume loss with prominent ventricles and sulci. Mild periventricular white matter hypoattenuation likely reflects chronic small vessel disease. No hemorrhage. Ventricles: See above. Bones/joints: Unremarkable. No acute fracture. Soft tissues: Unremarkable. Sinuses: Mild paranasal sinus mucosal thickening. No sinus fluid levels. Mastoid air cells: Unremarkable as visualized. No mastoid effusion. IMPRESSION: 1. No evidence of acute intracranial abnormality. 2. 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 Electronically signed by: Cady Michael M.D. 02/25/24 04:20 AM Discharge Plan Visit Data Chief Complaint: Leg Weakness, Bilateral Stated Complaint: R Leg Weakness, Fall ED Provider: Rimma Chilel Discharge Problem: Right leg weakness, Fall Discharge Instructions Interventions: ED Discharge Assessment Last Done: 02/25/24 06:54
[2024-02-25] MEDS: SODIUM CHLORIDE 0.45 % 1,000 ML IV ONE (04:07)
[2024-02-25] MEDS: THIAMINE HCL 100 MG in SYRINGE 9 ML IV STA (04:08)
[2024-02-25 04:12] LABS: Magnesium 2.2 mg/dl (1.7-2.4)
--- NOTE | 2024-02-25 04:21 | CT Scan Report ---
Exam(s): CT HEAD Without Contrast EXAM: CT Head Without Intravenous Contrast CLINICAL HISTORY: Reason for exam: R > L weakness, weakness. TECHNIQUE: Axial computed tomography images of the head/brain without intravenous contrast. CTDI is 36.18 mGy and DLP is 625.8 mGy-cm. Automated exposure control was utilized for the study. A dose lowering technique was utilized adhering to the principles of ALARA. 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 Associated artifact somewhat limits evaluation. Mild volume loss with prominent ventricles and sulci. Mild periventricular white matter hypoattenuation likely reflects chronic small vessel disease. No hemorrhage. Ventricles: See above. Bones/joints: Unremarkable. No acute fracture. Soft tissues: Unremarkable. Sinuses: Mild paranasal sinus mucosal thickening. No sinus fluid levels. Mastoid air cells: Unremarkable as visualized. No mastoid effusion. IMPRESSION: 1. No evidence of acute intracranial abnormality. 2. 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 Electronically signed by: Cady Michael M.D. 02/25/24 04:20 AM
[2024-02-25 04:27] LABS: Thyroid Stimulating Hormone 0.678 uIu/ml (0.300-4.500)
--- OUTSIDE RECORDS SUMMARY | 2024-02-25 04:38 | External Medical Summary | Summary of Care ---
Author Name Unknown Organization [facility] Address [address] [place] [address] Phone [phone] Care Team Providers Care [employer] Research Engineer Name Role Phone Yesi Garcia MD Primary Care Prov ider Reason for Visit * Reason Onset Date Comments Case Management Plan Of Care 02/17/2024 Maranda t needed -- Interventional Pain Mgmt at Encounter Details Date Type Department Care Team (Latest Contact Info) Description 02/17/2024 Tool Builder Telephone Care Coordination and Integration [address] [place] [address] Anali Spence, RN [address] [place] [address] Case Management Plan Of Care (Appt needed ... Allergies Active Allergy Reactions Criticality Noted Date Comments Lisinopril Cough Low 10/27/2021 documented as of this encounter (statuses as of 02/17/2024) Medications Medication Sig Dispensed Refills Start Date End Date Status Glucose Blood (ONETOUCH VERIO) STRP Test blood sugar once daily; dxE11.9 100 Strip 3 08/03/2019 Active Lancets (ONETOUCH DELICA PLUS [id number]) MISC Test blood sugar once daily; dxE11.9 100 Each 3 08/03/2019 Active Vitamin B-12 1000 MCG Oral Tablet Take 1 Tablet by mouth in the morning. 06/17/2020 Active Losartan Potassium 100 MG Oral Tablet (Cozaar)Indications :HTN, goal below 140/90 Take 1 Tablet by mouth in the morning. 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 90 Tablet 3 04/27/2023 Active Aspirin 81 MG Oral Tablet Delayed Release Take 1 Tablet by mouth every evening. 120 Tablet 06/20/2023 Active DULoxetine HCl 60 MG Oral Capsule Delayed Release Particles (Cymbalta)Indicatio ns:Spinal stenosis of lumbar region with neurogenic claudication,Modera te episode of recurrent major depressive disorder (HCC) TAKE ONE CAPSULE BY MOUTH EVERY MORNING - DO NOT CUT, CRUSH, OR CHEW 30 Capsule 11 07/18/2023 07/17/2024 Active Gabapentin 600 MG Oral Tablet (Neurontin)Indicati ons:Spinal stenosis of lumbar region with neurogenic claudication TAKE ONE TABLET BY MOUTH FOUR TIMES A DAY 360 Tablet 3 07/26/2023 07/25/2024 Active Metoprolol Tartrate 50 MG Oral Tablet (Lopressor)Indicati ons:HTN, goal below 140/90 TAKE ONE TABLET BY MOUTH EVERY MORNING AND TAKE ONE TABLET BY MOUTH EVERY DAY BEFORE BEDTIME 180 Tablet 3 07/25/2023 07/24/2024 Active metFORMIN HCl 500 MG Oral Tablet (Glucophage)Indicat ions:Type 2 diabetes mellitus with diabetic peripheral angiopathy without gangrene, without long-term current use of insulin (HCC) TAKE ONE TABLET BY MOUTH TWICE A DAY WITH MORNING AND EVENING MEALS 180 Tablet 3 07/25/2023 07/24/2024 Active Triamcinolone Acetonide 0.5 % External Cream (Aristocort)Indicat ions:Atopic dermatitis, unspecified type Apply topically to affected area 2 times a day. 15 g 09/28/2023 Active Diclofenac Sodium 1 % External Gel (Voltaren)Indicatio ns:Chronic pain of both knees Apply topically to affected area 2 times a day as needed for Pain, Moderate. Apply to knees 150 g 2 09/28/2023 Active hydroCHLOROthiazide 25 MG Oral Tablet (Hydrodiuril)Indica tions:HTN, goal below 140/90 TAKE ONE TABLET BY MOUTH EVERY MORNING 90 Tablet 5 10/24/2023 10/23/2024 Active OneTouch Verio In Vitro Strip (Glucose Blood) USE TO TEST BLOOD SUGAR ONCE DAILY 100 Strip 3 10/26/2023 10/25/2024 Active traMADol HCl 50 MG Oral Tablet (Ultram)Indications :Other chronic back pain,Spinal stenosis of lumbar region with neurogenic claudication Take 1 Tablet by mouth 2 times a day as needed for moderate to severe pain 60 Tablet 2 12/24/2023 Active Baclofen 20 MG Oral TabletIndications:M uscle spasm of back Take 1 Tablet by mouth 2 times a day as needed for Muscle spasms. 180 Tablet 3 12/24/2023 Active documented as of this encounter (statuses as of 02/17/2024) Active Problems Problem Noted Date Diagnosed Date Delirium, acute 04/03/2023 Encephalopathy 04/01/2023 Aneurysm of anterior communicating artery 2022 Pain medication agreement 10/27/2021 Multilevel failed back syndrome 10/27/2021 Medical marijuana use 10/27/2021 Type 2 diabetes mellitus with polyneuropathy Type 2 diabetes mellitus with peripheral artery disease 06/12/2020 Type 2 diabetes mellitus wit h hemoglobin A1c goal of less than 8.0% 07/16/2019 Moderate episode of recurrent major depressive d isorder 07/05/2019 Radial nerve palsy, right 12/22/2018 Kyphosis 06/17/2017 Chronic back pain 06/17/2017 Carotid bruit 09/21/2013 Peripheral arterial disease 09/13/2013 Persistent insomnia 03/21/2013 Chronic coronary artery disease 01/18/2013 Spinal stenosis of lumbar re gion with neurogenic claudication 02/03/2012 HTN, goal below 140/90 07/29/2011 S/P angioplasty with stent 03/31/2011 Overview: CONNOR x3 in 02/2011 at [facility] Dyslipidemia, goal LDL below 70 03/31/2011 HX-SKIN MALIGNANCY NEC - BCC L cheek 2006 2009 Impotence of organic origin 01/11/2008 Other allergic rhinitis 12/29/2005 Overview: ICD-10 update of inactive term ADVANCE DIRECTIVE INFORMATION 06/10/2005 Overview: No, Advance Directive brochure given to patient. -mailed 03/17/2011 No, Advance Directive brochure given to patient at prior appointment. Ulnar nerve lesion Polyneuropathy in other diseases classified else where documented as of this encounter (statuses as of 02/17/2024) Resolved Problems Problem Noted Date Diagnosed Date Resolved Date Major depressive disorder, s phillip episode, mild 09/28/2023 10/11/2023 Other psoriasis 12/30/2020 08/14/2022 Opioid dependence, uncomplicated 12/22/2018 12/22/2018 Opioid dependence, uncomplicated 07/11/2017 07/27/2017 Acute blood loss anemia 06/17/201705/24 Pneumothorax, left 06/17/2017 8 Moderate malnutrition 06/15/20172017 Reactive depression (situational) 07/02/2014 07/05/2019 coronary artery disease 03/15/201105/2010 Overview: [facility]--+troponin-unstable angina, s/p stenting coronary artery disease 03/15/201112/22 Overview: [facility]--unstable angina s/p stenting Other tenosynovitis of hand and wrist 07/29/2010 09/12/2015 Dyslipidemia, goal LDL below 160 07/25/2009 03/23/2011 HTN, goal below 140/90 03/28/200907/28 Overview: Modified per HTN Taxonomy. SEBORRHEA CAPITIS 01/31/2009 12/13/2012 Trigger finger 07/11/2007 09/12/2015 Malignant neoplasm of skin of parts of face 10/07/2005 06/14/2014 Overview: ICD-10 update of inactive term UNILAT INGUINAL HERNIA 12/21/200208/28 Carpal tunnel syndrome 08/28 Lipoma of other specified sites 08/29/2007 BENIGN HYPERTENSION 03/28/20 Overview: Modified per HTN Taxonomy. Impaired fasting glucose High triglycerides 2 Carpal tunnel syndrome 12/13 Other specified erythematous condition(695.89) 06/21/2016 Overview: GRANULOMA ANNULARE Dyslipidemia, goal LDL below 130 07/29/2010 Dyslipidemia, goal LDL below 130 03/31/2011 Iron (Fe) deficiency anemia 06/16/2018 Spinal stenosis of lumbar re gion with neurogenic claudication 04/14/2018 Spinal cord stimulator status 11/04/2015 documented as of this encounter (statuses as of 02/17/2024) Immunizations Name Administration Dates Next Due COVID-19 mRNA, LNP-s, No Pre serve, 2-Dose Series (Moderna) 09/23/2020,09/02/2020 COVID-19, mRNA, LNP-s, PF, B ooster, 100mcg/0.5mg (Moderna) 04/03/2021 Covid-19, Mrna, Lnp-s, Pf, B ivalent, 30 Mcg, IM, 12 yrs and above (Idhasoft) 03/09/2022 Pneumococcal Conjugate Vacc, 13 Valent (Prevnar) 11/04/2014 Pneumococcal Polysaccharide PPV23 (Pneumovax) 01/04/2017,07/29/2011 Season Influenza, Quad, PF, Adjuvanted, 65+ Yrs, IM (FLUAD) 03/03/2020 Seasonal Influenza, PF, 6 M & above, IM , (FluLaval or Fluzone) 02/24/2018 Seasonal Influenza, Quadriva lent Hd (Fluzone Hd) 03/22/2023,01/29/2022,03/23/2021 Seasonal Influenza, Quadriva lent, No Preserve, IM 04/01/2016,03/07/2015 Seasonal Influenza, Trivalen t, (IIV3), with Preserv, (Fluzone) 03/02/2017,02/11/2014,03/21/2013,02/09,03/23/2011,04/28/2010,03/11/2009 Seasonal Influenza, Trivalen t, Adjuvanted, 65+ YRS, PF, (Fluad) 03/13/2019 TDAP (age 10 and older)(Boostrix) 01/12/2018 TDAP, Age 7 and older, IM (Adacel) 01/11/2008 Varicella Zoster Vaccine (Adult) 01/26/2012,12/22 Zoster Vaccine Recombinant (Shingrix) 06/16/2018 ,04/14/2018 documented as of this encounter Social History Tobacco Use Types Packs/Day Years Used Date Smoking Tobacco: Former Cigarettes 1 20 0 05/23/1966 - 05/23/1986 Smokeless Tobacco: Former Quit: 05/23/1990 Comments:chewed for about a year Alcohol Use Standard Drinks/Week Comments Yes 5 (1 standard drink = 0.6 oz pur e alcohol) beer socially PHQ-2 Answer Date Recorded PHQ Adult Total Score 0 06/21/2023 Hunger Vital Sign Answer Date Recorded Within the past 12 months, y ou worried that your food would run out before you got the money to buy more. Never true 06/21/19 24 Within the past 12 months, t he food you bought just didn't last and you didn't have money to get more. Never true 06/21/2023 Childcare Answer Date Recorded Do you feel overwhelmed with taking care of a child, family member or friend? No 06/21/2023 Does your family need help f inding childcare? (Household - for ages 0-17 years) Not on file 06/21/2023 Clothing Answer Date Recorded Have you been unable to get clothing when it was really needed? No 06/21/2023 Is your family able to get c lothes or diapers when needed? (Household - for ages 0-17 years) Not on file 06/21/2023 Personal Safety Answer Date Recorded Do you feel unsafe or have concerns for your saf ety? No 12/07/2023 Do you have concerns for you r family's safety? (Household - for ages 0-17 years) Not on file 12/07/2023 Utilities Answer Date Recorded Do you have trouble paying y our heating, water, or electric bill? No 12/07/2023 Is your family able to pay t he heat, water, or electric bill? (Household - for ages 0-17 years) Not on file 12/07/2023 Does your family have access to good internet? (Household - for ages 0-17 years) Not on file 12/07/2023 Employment Status Answer Date Recorded Are you unemployed or without regular income? No 06/21/2023 Does the household have a re gular source of income? (Household - for ages 0-17 years) Not on file 06/21/2023 Social Connections Answer Date Recorded How often do you feel lonely or isolated from th ose around you? Never 06/21/2023 Financial Resource Strain Answer Date R ecorded Do you have any trouble payi ng for your medications, or do you think you might in the future? No 06/21/2023 Does your family have troubl e paying for medicine? (Household - for ages 0-17 years) Not on file 06/21/2023 Transportation Needs Answer Date Record ed READ ONLY Do you have troubl e getting a ride to medical visits or work? Never True 12/07/2023 Does your family have a hard time getting a ride to doctors visits? (Household - for ages 0-17 years) Not on file 12/07/2023 Has lack of transportation k ept you from medical appointments, meetings, work, or from getting things needed for daily living? Check all that apply. No 12/07/2023 Do you (or your family) have trouble finding or paying for a ride (transportation)? (Household - for ages 0-17 years) Not on file 12/07/2023 Housing Stability Answer Date Recorded Do you currently live in a s helter or have no steady place to sleep at night? No 12/07/2023 READ ONLY Do you think you a re at risk of becoming homeless? No 12/07/2023 Does your family worry about paying for your home or becoming homeless? (Household - for ages 0-17 years) Not on file 0 12/07/2023 Are you homeless or worried that you might be in the future? No 12/07/2023 Are you (or your family) kevin eless or worried that you might be in the future? (Household - for ages 0-17 years) Not on file Food Insecurity Answer Date Recorded Do you need food for this week? No 12/07/2023 Are you able to get enough f ood for your family? (Household - for ages 0-17 years) Not on file 12/07/2023 Does your family need food t his week? (Household - for ages 0-17 years) Not on file 12/07/2023 Do you always have enough fo od for your family? (Household - for ages 0-17 years) Not on file 12/07/2023 Sex and Gender Information Value Date Recorded Sex Assigned at Male 09/16/2020 10:28 AM EDT Gender Identity Male 09/16/2020 10:28 AM EDT Sexual Orientation Straight 09/16/2020 10 :28 AM EDT Job Start Date Occupation Industry Not on file Not on file Not on file documented as of this encounter Functional Status Functional Status Response Date of Assess ment Are you deaf or do you have serious difficulty h earing? No 12/07/2023 Are you blind or do you have serious difficulty seeing, even when wearing glasses? No 12/07/2023 Do you have serious difficul ty walking or climbing stairs? (5 years old or older) No 12/07/2023 Do you have difficulty dress ing or bathing? (5 years old or older) No 12/07/2023 Because of a physical, menta l, or emotional condition, do you have difficulty doing errands alone such as visiting a doctor s office or shopping? (15 years old or older) No 12/07/19 Cognitive Status Response Date of Assessm ent Because of a physical, menta l, or emotional condition, do you have serious difficulty concentrating, remembering, or making decisions? (5 years old or older) No 12/07/2023 documented as of this encounter Miscellaneous Notes * Telephone Encounter - Patti Solo OSA - 02/17/2024 2:47 PM EDT Pain management appt scheduled, pt aware and also sent him an appt card per his request. * Telephone Encounter - Anali Spence RN - 02/17/2024 12:04 PM EDT Please see 01/05/24 PCP tele encounter Patient needs to go back to pain mgmt for neck injections Please call him to schedule -- he does not have VM so you may have to make several attempts. Thank you. documented in this encounter Plan of Treatment Upcoming Encounters Date Type Department Care Team (Late st Contact Info) Description 04/24/2024 11:30 AM EST Office Visit Cardiology [address] [place] [address] Emerson Hampton PA-C [address] [place] [address] 04/25/2024 1:30 PM EST Office Visit Interventional Pain Center, [facility] [address] [place] [address] Babita Tobin PA-C [address] [place] [address] 11/26/2024 1:00 PM EDT Nurse Only Ancillary [address] [place] [address] [place], Nurse [address] [place] [address] 12/03/2024 4:00 PM EDT Telemedicine Neurosurgery, [place] [address] [place] [address] Andrzej Whitfield MD, PhD [address] [place], [place] [id number] Health Maintenance Due Date Last Done Comments Diabetic Foot Exam 11/18/2023 11/17/2022, 0 01/29/2022, 09/16/2020 Influenza Vaccine (FLU shot) (#1) 2024 03/22/2023, 01/29/2022, 03/23/2021, Additional history exists HbA1c 05/31/2024 11/29/2023, 050 12/2023, 04/12/2023, Additional history exists Albumin/Creatinine Ratio 09/27/20242 024, 11/17/2022, 09/01/2021, Additional history exists Adult Wellness Visit 11/20/2024 11/21/2023, 11/17/2022, 10/16/2021, Additional history exists Depression Monitoring 11/20/2024 11/21/2023 GFR 12/06/2024 12/07/2023, 02/0 09/2023, 06/18/2023, Additional history exists Diabetic Eye Exam 04/10/2025 05/12/2023, , 09/01/2021, Additional history exists Postponed from 05/12/2024 (Done Elsewhere) DTap/Tdap Vaccines (3 - Td or Tdap) 01/13/2028 01/12/2018, 01/11/2008 Fecal Occult Blood Test Discontinued 09/22/2011 Pneumococcal Vaccine: 65+ Years Completed 01/04/2017, 11/04/2014, 07/29/2011 Zoster Vaccines Completed 06/16/2018, 03/24, 01/26/2012, Additional history exists COVID-19 Vaccine Discontinued 03/09/2022, 04/2021, 09/23/2020, Additional history exists Colonoscopy Discontinued 04/11/2023, 03/24, 10/29/2011, Additional history exists Colorectal Cancer Screening Discontinued Cologuard Discontinued HPV (Gardasil) Vaccine Aged Out No lo nger eligible based on patient's age to complete this topic Hepatitis B Vaccine Aged Out No longe r eligible based on patient's age to complete this topic MENINGOCOCCAL (MENACTRA/MENVEO) Aged Out No longer eligible based on patient's age to complete this topic Sigmoidoscopy Discontinued documented as of this encounter Medical Devices Implanted Type Area Vice President Corporate Communications Device Identifier Shelf Expiration Date Model / Serial / Lot Dbx 5cc [id number] - [id number] - [id number] Implanted:Qty: 1 on 06/13/2017 by Janna Carcamo MD at OR [facility] Tissue - Human Left: Spine Thoracic MUSCULOSKELETAL TRANSPLANT FND 10/28/2018 [id number] / [id number] / Chip Cancellous 90cc [id number] - [id number] - [id number] Implanted:Qty: 1 on 06/16/2017 by Tank Multani DO at OR [facility] Tissue - Human N/A: Back MUSCULOSKELETAL TRANSPLANT FND 02/22/2018 [id number] / [id number] / Vitoss Bimodal Foam Pack 10cc - [id number] Implanted:Qty: 6 on 10/29/2015 by Tank Multani DO at OR [facility] N/A: Spine Thoracic YVROSE : SPINE 11/19/2016 [id number] / / [id number] Revision Post Implanted:Qty: 2 on 10/29/2015 by Tank Multani DO at OR [facility] N/A: Spine Thoracic [employer] [id number] / / Description:in set Screw Sterling Glenis 3 Ti Set - [id number] Implanted:Qty: 22 on 10/29/2015 by Tank Multani DO at OR [facility] N/A: Spine Thoracic [employer]VROSE : SPINE [id number] / / Description:in set Screw Glenis Pa Ti 6.5x50mm - [id number] Implanted:Qty: 2 on 10/29/2015 by Tank Multani DO at OR [facility] N/A: Spine Thoracic YVROSE : SPINE [id number] / / Description:in set Screw Glenis Pa Ti 6.5x45mm - [id number] Implanted:Qty: 2 on 10/29/2015 by Tank Multani DO at OR [facility] N/A: Spine Thoracic YVROSE : SPINE [id number] / / Description:in set Screw Glenis Pa Ti 6.5x40mm - [id number] Implanted:Qty: 2 on 10/29/2015 by Tank Multani DO at OR [facility] N/A: Spine Thoracic YVROSE : SPINE [id number] / / Description:in set Screw Glenis Pa Ti 5.5x35mm - [id number] Implanted:Qty: 4 on 10/29/2015 by Tank Multani DO at OR [facility] N/A: Spine Thoracic [employer]VROSE : SPINE [id number] / / Description:in set Glenis 5.5 X 30 Screw Implanted:Qty: 2 on 10/29/2015 by Tank Multani DO at OR [facility] N/A: Spine Thoracic YVROSE : SPINE [id number] / / Description:in set Glenis Large Laminar Hook Implanted:Qty: 2 on 10/29/2015 by Tank Multani DO at OR [facility] N/A: Spine Thoracic YVROSE [id number] / / Description:in set Glenis 2 Axel To Axel Connector Implanted:Qty: 4 on 10/29/2015 by Tank Multani DO at OR [facility] N/A: Spine Thoracic YVROSE [id number] / / Description:in set Axel Alloy Glenis 3 Ti [id number] - [id number] Implanted:Qty: 2 on 10/29/2015 by Tank Multani DO at OR [facility] N/A: Spine Thoracic YVROSE : SPINE [id number] / / Description:in set Graft Infuse Bone Med [id number] - [id number] Implanted:Qty: 1 on 06/13/2017 by Janna Carcamo MD at OR [facility] N/A: Spine Thoracic [employer] : NEURO CARE 03/22/2019 [id number] / / [id number] Lateral Interbody Size [id number] Zero Degree Implanted:Qty: 1 on 06/13/2017 by Janna Carcamo MD at OR [facility] Left: Spine Thoracic [employer] 02/23/2022 [id number] 10LP-G2 / / [id number] Lateral Interbody [id number] Zero Degree Implanted:Qty: 1 on 06/13/2017 by Janna Carcamo MD at OR [facility] N/A: Spine Thoracic [employer] 02/24/2021 [id number] 10LP-G2 / / [id number] Graft Infuse Bone Lg [id number] - [id number] Implanted:Qty: 1 on 06/16/2017 by Tank Multani DO at OR [facility] N/A: Back [employer] : NEURO CARE 09/20/2018 [id number] / / [id number] Screw Sterling Glenis 3 Ti Set - [id number] Implanted:Qty: 26 on 06/16/2017 by Tank Multani DO at OR [facility] N/A: Back YVROSE : SPINE 06/17/2017 [id number] / / Description:in set Axel Alloy Glenis 3 Ti 4l364sq - [id number] Implanted:Qty: 2 on 06/16/2017 by Tank Multani DO at OR [facility] N/A: Back YVROSE : SPINE 06/17/2017 [id number] / / Description:in set Glenis 2 Small Axel Conn Implanted:Qty: 4 on 06/16/2017 by Tank Multani DO at OR [facility] N/A: Back YVROSE 06/17/2017 [id number] / / Description:in set Screw Polyaxial Xia3 Ti 6x30mm - [id number] Implanted:Qty: 2 on 06/16/2017 by Tank Multani DO at OR [facility] N/A: Back YVROSE : SPINE 06/17/2017 [id number] / / Description:in set 5.0 X 30 Glenis Screw Implanted:Qty: 4 on 06/16/2017 by Tank Multani DO at OR [facility] N/A: Back YV[employer]SE 06/17/2017 [id number] / / Description:in set 6.0 X 35 Musa Screw Implanted:Qty: 1 on 06/16/2017 by Tank Multani DO at OR [facility] N/A: Back YVROSE 06/17/2017 [id number] / / Description:in set 7.0 X 40 Musa Screw Implanted:Qty: 1 on 06/16/2017 by Tank Multani DO at OR [facility] N/A: Back YVROSE 06/17/2017 [id number] / / Description:in set 7.0 X 45 Musa Screw Implanted:Qty: 1 on 06/16/2017 by Tank Multani DO at OR [facility] N/A: Back YVROSE 06/17/2017 [id number] / / Description:in set 6.5 X 50 Musa Screw Implanted:Qty: 2 on 06/16/2017 by Tank Multani DO at OR [facility] N/A: Back YVROSE 06/17/2017 [id number] / / Description:in set 7.0 X 50 Musa Screw Implanted:Qty: 4 on 06/16/2017 by Tank Multani DO at OR [facility] N/A: Back YVROSE 06/17/2017 [id number] / / Description:in set Biocomposite Swivelock Suture [employer] 5.5x22mm Implanted:Qty: 1 on 06/26/2018 by Brown Wall DO at OR [facility] Right: Shoulder 01/21/2020 [id number] -2 / / [id number] Prox Ten[employer]is Implant Syst - [id number] Implanted:Qty: 1 on 06/26/2018 by Brown Wall DO at OR [facility] Right: Shoulder [employer] 01/20/2023 [id number] / / [id number] Stent Vasc 3x15mm Intracranial St Latexfree Tip Wo Non - [id number] Implanted:Qty: 1 on 06/15/2023 by Andrzej Whitfield MD, PhD at OR [facility] [employer] : NEUROVASCULAR 10/25/2026 [id number] / / [id number] Description:right ica Stent Vasc 3x21mm Intracranial St Latexfree Tip Wo Non - [id number] Implanted:Qty: 1 on 06/15/2023 by Andrzej Whitfield MD, PhD at OR [facility] YV[employer] : NEUROVASCULAR 05/31/2026 [id number] / / [id number] Microcatheter 0.010in [id number] Coil System Embztn Stretch - [id number] Implanted:Qty: 1 on 06/15/2023 by Andrzej Whitfield MD, PhD at OR [facility] [employer] [id number] 07/21/2023 7 110-0715 / / [id number] Microcatheter 0.010in [id number] Coil System Emblztn Stretch - [id number] Implanted:Qty: 1 on 06/15/2023 by Andrzej Whitfield MD, PhD at OR [facility] [employer] [id number] 10/20/2026 7 110-0715 / / [id number] Microcatheter 0.010in [id number] Coil System Embztn Stretch - [id number] Implanted:Qty: 1 on 06/15/2023 by Andrzej Whitfield MD, PhD at OR [facility] [employer] [id number] 09/20/2027 7 110-0619 / / [id number] Microcatheter 0.010in [id number] Coil System Embztn Stretch - [id number] Implanted:Qty: 1 on 06/15/2023 by Andrzej Whitfield MD, PhD at OR [facility] [employer] [id number] 12/20/2026 7 110-0515 / / [id number] documented as of this encounter Advance Directives * Full Code (Latest Code Status on File) Date Activated Date Inactivated Comments 12/07/2023 11:12 AM 12/08/2023 3:21 PM This order reflects the patients wishes and were consensually agreed upon. Question Answer Comments Discussion of Advance Direct reagan occurred with: Not Discussed due to patient's condition * Full Code Date Activated Date Inactivated Comments 06/15/2023 8:10 PM 06/20/2023 4:01 PM This order r eflects the patients wishes and were consensually agreed upon. Question Answer Comments Discussion of Advance Directives occurred with: Patient * Full Code Date Activated Date Inactivated Comments 06/15/2023 10:47 AM 06/15/2023 8:10 PM This order reflects the patients wishes and were consensually agreed upon. Question Answer Comments Discussion of Advance Direct reagan occurred with: Not Discussed due to patient's condition * Full Code Date Activated Date Inactivated Comments 04/01/2023 7:59 PM 04/03/2023 3:33 PM This order reflects the patients wishes and were consensually agreed upon. Question Answer Comments Discussion of Advance Direct reagan occurred with: Not Discussed due to patient's condition * Full Code Date Activated Date Inactivated Comments 06/16/2017 8:35 PM 06/22/2017 4:30 PM This order r eflects the patients wishes and were consensually agreed upon. Question Answer Comments Discussion of Advance Directives occurred with: Not Discussed per previous order Does the patient have a Living Will? No Does the patient have Health Care Power of Attor katherine? No Care Teams [employer] Research Engineer Relationship Specialty Start Date End Date Yesi Garcia MD [address] [place] [address] [place] [address] PCP - General Family Medicine 10/27/21 documented as of this encounter
--- OUTSIDE RECORDS SUMMARY | 2024-02-25 04:39 | External Medical Summary | Summary of Care ---
Author Name Unknown Organization [facility] Address [address] [facility] [place] [address] Phone [phone] Care Team Providers Care Leadership Recruiter Name Role Phone Yesi Garcia MD Primary Care Prov ider Encounter Details Date Type Department Care Team (Latest Contact Info) Description 02/15/[address] [facility] [address] [place], [place] [id number] Fela Taveras, [facility] [address] [place] [address] Referred for medication therapy management* Allergies Active Allergy Reactions Criticality Noted Date Comments Lisinopril Cough Low 10/27/2021 documented as of this encounter (statuses as of 02/15/2024) Medications Medication Sig Dispensed Refills Start Date End Date Status Glucose Blood (ONETOUCH VERIO) STRP Test blood sugar once daily; dxE11.9 100 Strip 3 08/03/2019 Active Lancets (ONETOUCH DELICA PLUS RPIXQA25V) MISC Test blood sugar once daily; dxE11.9 [...] 90 Tablet 5 10/24/2023 10/23/2024 Active OneTouch Verdell In Vitro Strip (Glucose Blood) USE TO [...] as of this encounter (statuses as of 02/15/2024) Active Problems Problem Noted Date Diagnosed Date [...] 03/31/2011 Overview: [facility] x3 in 02/2011 at [facility] Dyslipidemia, goal LDL below 70 03/31/2011 HX-SKIN [...] as of this encounter (statuses as of 02/15/2024) Resolved Problems Problem Noted Date Diagnosed Date Resolved Date Major depressive disorder, s phillip episode, mild 09/28/2023 10/11/2023 Other psoriasis 12/30/2020 08/14/2022 Opioid dependence, uncomplicated 12/22/2018 12/22/2018 Opioid dependence, uncomplicated 07/11/2017 07/27/2017 Acute blood loss anemia 06/17/201705/24 Pneumothorax, left 06/17/2017 8 Moderate malnutrition 06/15/20172017 Reactive depression (situational) 07/02/2014 07/05/2019 coronary artery disease 03/15/201105/2010 Overview: [facility]--+troponin-unstable angina, s/p stenting coronary artery disease 03/15/201112/22 Overview: [facility]--unstable angina s/p stenting Other tenosynovitis of hand [...] as of this encounter (statuses as of 02/15/2024) Immunizations Name Administration Dates Next Due COVID-19 mRNA, LNP-s, No Pre serve, 2-Dose Series (Moderna) 09/23/2020,09/02/2020 COVID-19, mRNA, LNP-s, PF, B ooster, 100mcg/0.5mg (Moderna) 04/03/2021 Covid-19, Mrna, Lnp-s, Pf, B ivalent, 30 Mcg, IM, 12 yrs and above (sportif225) 03/09/2022 Pneumococcal Conjugate Vacc, 13 Valent (Prevnar) [...] No 12/07/2023 documented as of this encounter Progress Notes * Laurie Ruvalcaba PHARM Tech - 02/15/2024 9:09 PM EDT Juan David Truong is a 78 year old male. TMR Interventions TMR Patient Education - Safe Medication Use (Opioid Therapy): TRAMADOL HCL TAB 50MG Incomplete Encounter MTPs No medication therapy recommendations to display Complete Encounter MTPs Referred for medication therapy management Current Medication: traMADol HCl 50 MG Oral Tablet (Ultram) Rationale: Patient Education - Needs Education - Safety Recommendation: Provide Education Status: Patient Agreed Note: TMR for safe use of opioid therapy. Patient was educated during CMR. Assessment & Plan Indication, effectiveness, safety and convenience of his medications were reviewed today. The patient's medical conditions were assessed, evaluated, and deemed meeting goals of drug therapy, with thefollowing exceptions. LILIA Charles Tech 02/15/2024, 9:09 PM documented in this encounter Plan of Treatment Upcoming Encounters Date Type Department Care Team (Late st Contact Info) Description 04/24/2024 11:30 AM EST Office Visit Cardiology [address] [place] [address] Emerson Hampton PA-C [address] [place] [address] 11/26/2024 1:00 PM EDT Nurse Only Ancillary [address] [place] [address] [place], Nurse Annual Wellness [address] [place] [address] [place] [address] 12/03/2024 4:00 PM EDT Telemedicine [facility] [address], [place] [id number] Andrzej Whitfield MD, PhD [address], [place] [phone] Health Maintenance Due Date Last Done Comments Diabetic Foot Exam 11/18/2023 11/17/2022, 0 01/29/2022, 09/16/2020 Influenza Vaccine (FLU shot) (#1) 2024 03/22/2023, 01/29/2022, 03/23/2021, Additional history exists HbA1c 05/31/2024 11/29/2023, 05/0 12/2023, 04/12/2023, Additional history exists Albumin/Creatinine Ratio 09/27/202408/2 024, 11/17/2022, 09/01/2021, Additional history exists Adult [...] this encounter Medical Devices Implanted Type Area Music Researcher Device Identifier Shelf Expiration Date Model / Serial / Lot Dbx 5cc 092590 - [id number] - [id number] Implanted:Qty: 1 on 06/13/2017 by Janna Carcamo MD at OR [facility] Tissue - Human Left: Spine Thoracic MUSCULOSKELETAL TRANSPLANT FND 10/28/2018 [id number] / [id number] / Chip Cancellous 90cc [id number] - [id number] - [id number] Implanted:Qty: 1 on 06/16/2017 by Tank Multani DO at OR [facility] Tissue - Human N/A: Back MUSCULOSKELETAL TRANSPLANT FND 02/22/2018 [id number] / [id number] / Vitoss Bimodal Foam Pack 10cc - [id number] Implanted:Qty: 6 on 10/29/2015 by Tank Multani DO at OR [facility] N/A: Spine Thoracic YVROSE : SPINE 11/19/20162011-3903 / / [id number] Revision Post Implanted:Qty: 2 on 10/29/2015 by Tank Multani DO at OR [facility] N/A: Spine Thoracic MEDICREA [id number] / / Description:in set Screw Sterling Glenis 3 Ti Set - [id number] Implanted:Qty: 22 on 10/29/2015 by Tank Multani DO at OR [facility] N/A: Spine Thoracic YVROSE : SPINE [id number] / / Description:in set Screw Glenis Pa Ti 6.5x50mm - [id number] Implanted:Qty: 2 on 10/29/2015 by Tank Multani DO at OR [facility] N/A: Spine Thoracic YVROSE : SPINE [id number] / / Description:in set Screw Glenis Pa Ti 6.5x45mm - [id number] Implanted:Qty: 2 on 10/29/2015 by Tank Multani DO at OR [facility] N/A: Spine Thoracic YVROSE : SPINE [id number] / / Description:in set Screw Glenis Pa Ti 6.5x40mm - [id number] Implanted:Qty: 2 on 10/29/2015 by Tank Multani DO at OR [facility] N/A: Spine Thoracic YVROSE : SPINE [id number] / / Description:in set Screw Glenis Pa Ti 5.5x35mm - [id number] Implanted:Qty: 4 on 10/29/2015 by Tank Multani DO at OR [facility] N/A: Spine Thoracic YVROSE : SPINE [id number] / / Description:in set Glenis 5.5 X 30 Screw Implanted:Qty: 2 on 10/29/2015 by Tank Multani DO at OR [facility] N/A: Spine Thoracic YVROSE : SPINE [id number] / / Description:in set Glenis Large Laminar Hook Implanted:Qty: 2 on 10/29/2015 by Tank Multani DO at OR [facility] N/A: Spine Thoracic YVROSE [id number] / / Description:in set Glenis 2 Axel To Axel Connector Implanted:Qty: 4 on 10/29/2015 by Tank Multani DO at OR [facility] N/A: Spine Thoracic YVROSE [id number] / / Description:in set Axel Alloy Glenis 3 Ti [id number] - [id number] Implanted:Qty: 2 on 10/29/2015 by Tank Multani DO at OR [facility] N/A: Spine Thoracic YVROSE : SPINE [id number] / / Description:in set Graft Infuse Bone Med [id number] - [id number] Implanted:Qty: 1 on 06/13/2017 by Janna Carcamo MD at OR [facility] N/A: Spine Thoracic [employer] : NEURO CARE 03/22/2019 [id number] / / [id number] Lateral Interbody Size [id number] Zero Degree Implanted:Qty: 1 on 06/13/2017 by Janna Carcamo MD at OR [facility] Left: Spine Thoracic [employer] 02/23/2022 [id number] 10LP-G2 / / [id number] Lateral Interbody [id number] Zero Degree Implanted:Qty: 1 on 06/13/2017 by Janna Carcamo MD at OR [facility] N/A: Spine Thoracic [employer] 02/24/2021 [id number] 10LP-G2 / / [id number] Graft Infuse Bone Lg [id number] - [id number] Implanted:Qty: 1 on 06/16/2017 by Tank Multani DO at OR [facility] N/A: Back [employer] : NEURO CARE 09/20/2018 [id number] / / [id number] Screw Sterling Glenis 3 Ti Set - [id number] Implanted:Qty: 26 on 06/16/2017 by Tank Multani DO at OR [facility] N/A: Back YVROSE : SPINE 06/17/2017 [id number] / / Description:in set Axel Alloy Glenis 3 Ti [id number] - [id number] Implanted:Qty: 2 on 06/16/2017 by Tank Multani DO at OR [facility] N/A: Back YVROSE : SPINE 06/17/2017 [id number] / / Description:in set Glenis 2 Small Axel Conn Implanted:Qty: 4 on 06/16/2017 by Tank Multani DO at OR [facility] N/A: Back YVROSE 06/17/2017 [id number] / / Description:in set Screw Polyaxial Xia3 Ti 6x30mm - [id number] Implanted:Qty: 2 on 06/16/2017 by Tank Multani DO at OR [facility] N/A: Back YVROSE : SPINE 06/17/2017 [id number] / / Description:in set 5.0 X 30 Glenis Screw Implanted:Qty: 4 on 06/16/2017 by Tank Multani DO at OR [facility] N/A: Back YVROSE 06/17/2017 [id number] / / Description:in set 6.0 X 35 Musa Screw Implanted:Qty: 1 on 06/16/2017 by Tank Multani DO at OR [facility] N/A: Back YVROSE 06/17/2017 [id number] / / Description:in set 7.0 X 40 Musa Screw Implanted:Qty: 1 on 06/16/2017 by Tank Multani DO at OR [facility] N/A: Back YVROSE 06/17/2017 [id number] / / Description:in set 7.0 X 45 Musa Screw Implanted:Qty: 1 on 06/16/2017 by Tank Multani DO at OR [facility] N/A: Back YVROSE 06/17/2017 [id number] / / Description:in set 6.5 X 50 Musa Screw Implanted:Qty: 2 on 06/16/2017 by Tank Multani DO at OR [facility] N/A: Back YVROSE 06/17/2017 [id number] / / Description:in set 7.0 X 50 Musa Screw Implanted:Qty: 4 on 06/16/2017 by Tank Multani DO at OR [facility] N/A: Back YVROSE 06/17/2017 [id number] / / Description:in set Biocomposite Swivelock Suture [place] 5.5x22mm Implanted:Qty: 1 on 06/26/2018 by Brown Wall DO at OR [facility] Right: Shoulder 01/21/2020 AR-2323BCT -2 / / [id number] Prox Tenodesis Implant Syst - [id number] Implanted:Qty: 1 on 06/26/2018 by Brown Wall DO at OR [facility] Right: Shoulder [employer] 01/20/2023 AR-2290 / / [id number] Stent Vasc 3x15mm Intracranial St Latexfree Tip Wo Non - [id number] Implanted:Qty: 1 on 06/15/2023 by Andrzej Whitfield MD, PhD at OR [facility] YVROSE : NEUROVASCULAR 10/25/2026 [id number] / / [id number] Description:right ica Stent Vasc 3x21mm Intracranial St Latexfree Tip Wo Non - [id number] Implanted:Qty: 1 on 06/15/2023 by Andrzej Whitfield MD, PhD at OR [facility] YVROSE : NEUROVASCULAR 05/31/2026 [id number] / / [id number] Microcatheter 0.010in 4cgv26xg Coil System Emblztn Stretch - [id number] Implanted:Qty: 1 on 06/15/2023 by Andrzej Whitfield MD, PhD at OR [facility] WhatsApp [id number] 07/21/2023 7 110-0715 / / [id number] Microcatheter 0.010in 5ckl86su Coil System Emblztn Stretch - [id number] Implanted:Qty: 1 on 06/15/2023 by Andrzej Whitfield MD, PhD at OR [facility] [employer] [id number] 10/20/2026 7 110-0715 / / [id number] Microcatheter 0.010in 7kvm14rm Coil System Emblztn Stretch - [id number] Implanted:Qty: 1 on 06/15/2023 by Andrzej Whitfield MD, PhD at OR [facility] [employer] [id number] 09/20/2027 7 110-0619 / / [id number] Microcatheter 0.010in 9dim59ml Coil System Kharitn Stretch - [id number] Implanted:Qty: 1 on 06/15/2023 by Andrzej Whitfield MD, PhD at OR [facility] WhatsApp [id number] 12/20/2026 7 110-0515 / / [id number] documented as of this encounter Visit Diagnoses Diagnosis Referred for medication therapy management- Primary Encounter for long-term (current) use of other medications documented in this encounter Advance Directives * Full Code [...] Power of Attor katherine? No Care Teams Leadership Recruiter Relationship Specialty Start Date End Date Yesi Garcia MD [address] [place] [address] [place] [address] PCP - General Family Medicine 10/27/21 documented as of this encounter
--- OUTSIDE RECORDS SUMMARY | 2024-02-25 04:39 | External Medical Summary | Summary of Care ---
Author Name Unknown Organization [facility] Address [address] [place] [address] Phone [phone] Care Team Providers Care Outer Diameter Grinder Tool Name Role Phone Yesi Garcia MD Primary Care Prov ider Encounter Details Date Type Department Care Team (Late st Contact Info) Description 02/10/2024 Telephone [facility], [place] [address] [place] [address] Services, [facility] [address] [place] [address] Allergies Active Allergy Reactions Criticality Noted Date Comments Lisinopril Cough Low 10/27/2021 documented as of this encounter (statuses as of 02/13/2024) Medications Medication Sig Dispensed Refills Start Date End Date Status Glucose Blood (ONETOUCH VERIO) STRP Test blood sugar once daily; dxE11.9 100 Strip 3 08/03/2019 Active Lancets (ONETOUCH DELICA PLUS [id number]) MISC Test blood sugar once daily; dxE11.9 [...] 2 12/24/2023 Active Baclofen 20 MG Oral TabletIndications:Brian villatoro spasm of back Take 1 Tablet by mouth 2 times a day as needed for Muscle spasms. 180 Tablet 3 12/24/2023 Active documented as of this encounter (statuses as of 02/13/2024) Active Problems Problem Noted Date Diagnosed Date [...] Overview: CONNOR x3 in 02/2011 at [facility] Dyslipidemia, goal LDL below 70 03/31/2011 HX-SKIN [...] as of this encounter (statuses as of 02/13/2024) Resolved Problems Problem Noted Date Diagnosed Date Resolved Date Major depressive disorder, s phillip episode, mild 09/28/2023 10/11/2023 Other psoriasis 12/30/2020 08/14/2022 Opioid dependence, uncomplicated 12/22/2018 12/22/2018 Opioid dependence, uncomplicated 07/11/2017 07/27/2017 Acute blood loss anemia 06/17/201705/24 Pneumothorax, left 06/17/2017 8 Moderate malnutrition 06/15/20172017 Reactive depression (situational) 07/02/2014 07/05/2019 coronary artery disease 03/15/201105/2010 Overview: [facility]--+troponin-unstable angina, s/p stenting coronary artery disease 03/15/201112/22 Overview: [facility]--unstable angina s/p stenting Other tenosynovitis of hand [...] other specified sites 08/29/2007 BENIGN HYPERTENSION 03/28/20 09 Overview: Modified per HTN Taxonomy. Impaired fasting glucose High triglycerides 2 Carpal tunnel syndrome 12/13 Other specified erythematous condition(695.89) 06/21/2016 Overview: [facility] Dyslipidemia, goal LDL below 130 07/29/2010 Dyslipidemia, goal LDL below 130 03/31/2011 Iron (Fe) deficiency anemia 06/16/2018 Spinal stenosis of lumbar re gion with neurogenic claudication 04/14/2018 Spinal cord stimulator status 11/04/2015 documented as of this encounter (statuses as of 02/13/2024) Immunizations Name Administration Dates Next Due COVID-19 mRNA, LNP-s, No Pre serve, 2-Dose Series (Moderna) 09/23/2020,09/02/2020 COVID-19, mRNA, LNP-s, PF, B ooster, 100mcg/0.5mg (Moderna) 04/03/2021 Covid-19, Mrna, Lnp-s, Pf, B ivalent, 30 Mcg, IM, 12 yrs and above (Pfizer) 03/09/2022 Pneumococcal Conjugate Vacc, 13 Valent (Prevnar) [...] encounter Miscellaneous Notes * Telephone Encounter - Lola Stern OSA - 02/10/2024 9:13 AM EDT Daniel from [facility] called requesting a letter from Dr. Whitfield stating it is okay for pt to stop taking Asprin prior to shoulder surgery. Please assist. Thank you Ph. [phone] documented in this encounter Plan of Treatment Upcoming Encounters Date Type Department Care Team (Late st Contact Info) Description 04/24/2024 11:30 AM EST Office Visit Cardiology [address] [place] [address] Emerson Hampton PA-C [address] [facility] [place] [address] 11/26/2024 1:00 PM EDT Nurse Only Ancillary [address] [place] [address] [place], Nurse [address] [place] [address] 12/03/2024 4:00 PM EDT Telemedicine Neurosurgery, [place] [address] [place] [address] Andrzej Whitfield MD, PhD [address] [place] [address] Health Maintenance Due Date Last Done Comments Diabetic Foot Exam 11/18/2023 11/17/2022, 0 01/29/2022, 09/16/2020 Influenza Vaccine (FLU shot) (#1) 2024 03/22/2023, 01/29/2022, 03/23/2021, Additional history exists HbA1c 05/31/2024 11/29/2023, 0512/2023, 04/12/2023, Additional history exists Albumin/Creatinine Ratio 09/27/2024 024, 11/17/2022, 09/01/2021, Additional history exists Adult [...] this encounter Medical Devices Implanted Type Area Lockstitch Hemmer Device Identifier Shelf Expiration Date Model / Serial / Lot Dbx 5cc 000180 - [id number] - [id number] Implanted:Qty: 1 on 06/13/2017 by Janna Carcamo MD at [place] [facility] Tissue - Human Left: Spine Thoracic MUSCULOSKELETAL TRANSPLANT FND 10/28/2018 005303 / [id number] / Chip Cancellous 90cc [id number] - [id number] - [id number] Implanted:Qty: 1 on 06/16/2017 by Tank Multani DO at OR [facility] Tissue - Human N/A: Back MUSCULOSKELETAL TRANSPLANT FND 02/22/2018 [id number] / [id number] / Vitoss Bimodal Foam Pack 10cc - [id number] Implanted:Qty: 6 on 10/29/2015 by Tank Multani DO at OR [facility] N/A: Spine Thoracic YVROSE : SPINE 11/19/2016 [id number] / / [id number] Revision Post Implanted:Qty: 2 on 10/29/2015 by Tank Multani DO at OR [facility] N/A: Spine Thoracic MEDICREA [id number] / / Description:in set Screw Sterling Glenis 3 Ti Set - [id number] Implanted:Qty: 22 on 10/29/2015 by Tank Multani DO at OR [facility] N/A: Spine Thoracic YVROSE : SPINE [id number] / / Description:in set Screw Glen[place] Pa Ti 6.5x50mm - [id number] Implanted:Qty: 2 on 10/29/2015 by Tank Multani DO at OR [facility] N/A: Spine Thoracic YVROSE : SPINE [id number] / / Description:in set Screw Glenis Pa Ti 6.5x45mm - [id number] Implanted:Qty: 2 on 10/29/2015 by Tank Multani DO at OR [facility] N/A: Spine Thoracic YVROSE : SPINE [id number] / / Description:in set Screw Glenis Pa Ti 6.5x40mm - [id number] Implanted:Qty: 2 on 10/29/2015 by Tank Multani DO at OR [facility] N/A: Spine Thoracic YVROSE : SPINE [id number] / / Description:in set Screw Glenis Pa Ti 5.5x35mm - [id number] Implanted:Qty: 4 on 10/29/2015 by Tank Multani DO at OR [facility] N/A: Spine Thoracic YVROSE : SPINE [id number] / / Description:in set Glenis 5.5 X 30 Screw Implanted:Qty: 2 on 10/29/2015 by Tank Multani DO at OR [facility] N/A: Spine Thoracic YVROSE : SPINE [id number] / / Description:in set Glenis Large Laminar Hook Implanted:Qty: 2 on 10/29/2015 by Tank Multani DO at OR [facility] N/A: Spine Thoracic YVROSE [id number] / / Description:in set Glenis 2 Axel To Axel Connector Implanted:Qty: 4 on 10/29/2015 by Tank Multani DO at OR [facility] N/A: Spine Thoracic YVROSE [id number] / / Description:in set Axel Alloy Glenis 3 Ti [id number] - [id number] Implanted:Qty: 2 on 10/29/2015 by Tank Multani DO at OR [facility] N/A: Spine Thoracic YVROSE : SPINE [id number] / / Description:in set Graft Infuse Bone Med [id number] - [id number] Implanted:Qty: 1 on 06/13/2017 by Janna Carcamo MD at OR [facility] N/A: Spine Thoracic MED[employer]IC : NEURO CARE 03/22/2019 [id number] / / [id number] Lateral Interbody Size [id number] Zero Degree Implanted:Qty: 1 on 06/13/2017 by Janna Carcamo MD at OR [facility] Left: Spine Thoracic [employer] INC 02/23/2022 [id number] 10LP-G2 / / [id number] Lateral Interbody [id number] Zero Degree Implanted:Qty: 1 on 06/13/2017 by Janna Carcamo MD at OR [facility] N/A: Spine Thoracic [employer] 02/24/2021 2151-[address] [place] [address] / / [id number] Graft Infuse Bone Lg 7211332 - [id number] Implanted:Qty: 1 on 06/16/2017 by Tank Multani DO at OR [facility] N/A: Back [employer]ONIC : NEURO CARE 09/20/2018 [id number] / / [id number] Screw Sterling Glenis 3 Ti Set - [id number] Implanted:Qty: 26 on 06/16/2017 by Tank Multani DO at OR [facility] N/A: Back YVROSE : SPINE 06/17/2017 [id number] / / Description:in set Axel Alloy Glenis 3 Ti 6d773ni - [id number] Implanted:Qty: 2 on 06/16/2017 by Tank Multani DO at OR [facility] N/A: Back YVROSE : SPINE 06/17/2017 [id number] / / Description:in set Glenis 2 Small Axel Conn Implanted:Qty: 4 on 06/16/2017 by Tank Multani DO at OR [facility] N/A: Back YVROSE 06/17/2017 [id number] / / Description:in set Screw Polyaxial Xia3 Ti 6x30mm - [id number] Implanted:Qty: 2 on 06/16/2017 by Tank Multani DO at OR [facility] N/A: Back YVROSE : SPINE 06/17/2017 [id number] / / Description:in set 5.0 X 30 Glenis Screw Implanted:Qty: 4 on 06/16/2017 by Tank Multani DO at OR [facility] N/A: Back YVROSE 06/17/2017 [id number] / / Description:in set 6.0 X 35 Musa Screw Implanted:Qty: 1 on 06/16/2017 by Tank Multani DO at OR [facility] N/A: Back YVROSE 06/17/2017 [id number] / / Description:in set 7.0 X 40 Musa Screw Implanted:Qty: 1 on 06/16/2017 by Tank Multani DO at OR [facility] N/A: Back YVROSE 06/17/2017 [id number] / / Description:in set 7.0 X 45 Musa Screw Implanted:Qty: 1 on 06/16/2017 by Tank Multani DO at OR [facility] N/A: Back YVROSE 06/17/2017 [id number] / / Description:in set 6.5 X 50 Musa Screw Implanted:Qty: 2 on 06/16/2017 by Tank Multani DO at OR [facility] N/A: Back YVROSE 06/17/2017 [id number] / / Description:in set 7.0 X 50 Musa Screw Implanted:Qty: 4 on 06/16/2017 by Tank Multani DO at OR [facility] N/A: Back YVROSE 06/17/2017 [id number] / / Description:in set Biocomposite Swivelock Suture [place] 5.5x22mm Implanted:Qty: 1 on 06/26/2018 by Brown Wall DO at OR [facility] Right: Shoulder 01/21/2020 AR-2323BCT -2 / / [id number] Prox Tenodesis Implant Syst - [id number] Implanted:Qty: 1 on 06/26/2018 by Brown Wall DO at OR [facility] Right: Shoulder [employer] 01/20/2023 AR-2290 / / [id number] Stent Vasc 3x15mm Intracranial St Latexfree Tip Wo Non - [id number] Implanted:Qty: 1 on 06/15/2023 by Andrzej Whitfield MD, PhD at OR [facility] YVROSE : NEUROVASCULAR 10/25/2026 [id number] 150 / / [id number] Description:right ica Stent Vasc 3x21mm Intracranial St Latexfree Tip Wo Non - [id number] Implanted:Qty: 1 on 06/15/2023 by Andrzej Whitfield MD, PhD at OR [facility] YVROSE : NEUROVASCULAR 05/31/2026 [id number] / / [id number] Microcatheter 0.010in 4jpq00wj Coil System Emblztn Stretch - [id number] Implanted:Qty: 1 on 06/15/2023 by Andrzej Whitfield MD, PhD at OR [facility] [employer] INC [id number] 07/21/2023 7 110-0715 / / [id number] Microcatheter 0.010in 0tvl55wm Coil System Emblztn Stretch - [id number] Implanted:Qty: 1 on 06/15/2023 by Andrzej Whitfield MD, PhD at OR [facility] Prom[employer] [id number] 10/20/2026 7 110-0715 / / [id number] Microcatheter 0.010in 0qkm18vh Coil System Emblztn Stretch - [id number] Implanted:Qty: 1 on 06/15/2023 by Andrzej Whitfield MD, PhD at [facility] [employer] [id number] 09/20/2027 7 110-0619 / / [id number] Microcatheter 0.010in 5say26ka Coil System Emblztn Stretch - [id number] Implanted:Qty: 1 on 06/15/2023 by Andrzej Whitfield MD, PhD at [facility] [employer] [id number] 12/20/2026 7 110-0515 / / [id number] documented as of this encounter Advance Directives [...] Power of Attor katherine? No Care Teams Outer Diameter Grinder Tool Relationship Specialty Start Date End Date Yesi Garcia MD [address] [place] [address] [place] [phone] PCP - General Family Medicine 10/27/21 documented as of this encounter
--- OUTSIDE RECORDS SUMMARY | 2024-02-25 04:39 | External Medical Summary | Summary of Care ---
Author Name Unknown Organization [facility] Address [address] [place] [address] Phone [phone] Care Team Providers Care Public Events Facilities Rental Manager Name Role Phone Yesi Garcia MD Primary Care Prov ider Encounter Details Date Type Department Care Team (Late st Contact Info) Description 02/10/2024 Telephone [facility], [place] [address] [place] [address] Services, [facility], [facility] [address] [place] [address] Allergies Active Allergy Reactions Criticality Noted Date Comments Lisinopril Cough Low 10/27/2021 documented as of this encounter (statuses as of 02/13/2024) Medications Medication Sig Dispensed Refills Start Date End Date Status Glucose Blood (ONETOUCH VERIO) STRP Test blood sugar once daily; dxE11.9 100 Strip 3 08/03/2019 Active Lancets (ONETOUCH DELICA PLUS [id number]) MISC Test blood sugar once daily; dxE11.9 [...] 03/31/2011 Overview: CONNOR x3 in 02/2011 at [facility] Dyslipidemia, goal LDL below 70 [...] 07/02/2014 07/05/2019 coronary artery disease 03/15/201105/2010 Overview: [facility]--+troponin-unstable angina, s/p stenting coronary artery disease 03/15/201112/22 Overview: [facility]--unstable angina s/p stenting Other tenosynovitis [...] encounter Miscellaneous Notes * Telephone Encounter - Heidi Marie OSA - 02/13/2024 4:11 PM EDT Letter successfully faxed to [phone] * Telephone Encounter - Lola Stren OSA - 02/10/2024 9:13 AM EDT Daniel from [facility] called requesting a letter from Dr. Whitfield stating it is okay for pt to stop taking Asprin prior to shoulder surgery. Please assist. Thank you Ph. [phone] documented in this encounter Plan of Treatment Upcoming Encounters Date Type Department Care Team (Late st Contact Info) Description 04/24/2024 11:30 AM EST Office Visit Cardiology [address] [place] [phone] Emerson Hampton PA-C [address] [place] [address] 11/26/2024 1:00 PM EDT Nurse Only Ancillary [address] [place] [address] [place], Nurse [address] [place] [address] 12/03/2024 4:00 PM EDT Telemedicine Neurosurgery, [place] [address] [place] [address] Andrzej Whitfield MD, PhD [address] [place] [address] Health Maintenance Due Date Last Done Comments Diabetic Foot Exam 11/18/2023 11/17/2022, 0 01/29/2022, 09/16/2020 Influenza Vaccine (FLU shot) (#1) 2024 03/22/2023, 01/29/2022, 03/23/2021, Additional history exists HbA1c 05/31/2024 11/29/2023, 05/0 12/2023, 04/12/2023, Additional history exists Albumin/Creatinine Ratio 09/27/2024 [...] this encounter Medical Devices Implanted Type Area Manager New Product Device Identifier Shelf Expiration Date Model / Serial / Lot Dbx 5cc 403984 - [id number] - [id number] Implanted:Qty: 1 on 06/13/2017 by Janna Carcamo MD at [place] [facility] [place] - Human Left: Spine Thoracic MUSCULOSKELETAL TRANSPLANT FND 10/28/2018 947297 / [id number] / Chip Cancellous 90cc 207400 - [id number] - [id number] Implanted:Qty: 1 on 06/16/2017 by Tank Multani DO at [place] [facility] Tissue - Human N/A: Back MUSCULOSKELETAL TRANSPLANT FND 02/22/2018 571794 / [id number] 1034 / Vitoss Bimodal Foam Pack 10cc - [id number] Implanted:Qty: 6 on 10/29/2015 by Tank Multani DO at [place] [facility] N/A: Spine Thoracic YVROSE : SPINE 11/19/2016 9307-6281 / / [id number] Revision Post Implanted:Qty: 2 on 10/29/2015 by Tank Multani DO at [place] [facility] N/A: Spine Thoracic MEDICREA [id number] / / Description:in set Screw Sterling Glenis 3 Ti Set - [id number] Implanted:Qty: 22 on 10/29/2015 by Tank Multani DO at [place] [facility] N/A: Spine Thoracic YVROSE : SPINE [id number] / / Description:in set Screw Glenis Pa Ti 6.5x50mm - [id number] Implanted:Qty: 2 on 10/29/2015 by Tank Multani DO at [place] [facility] N/A: Spine Thoracic YVROSE : SPINE [id number] / / Description:in set Screw [place]is Pa Ti 6.5x45mm - [id number] Implanted:Qty: 2 on 10/29/2015 by Tank Multani DO at [place] [facility] N/A: Spine Thoracic YVROSE : SPINE [id number] / / Description:in set Screw Glenis Pa Ti 6.5x40mm - [id number] Implanted:Qty: 2 on 10/29/2015 by Tank Multani DO at [place] [facility] N/A: Spine Thoracic YVROSE : SPINE [id number] / / Description:in set Screw Glenis Pa Ti 5.5x35mm - [id number] Implanted:Qty: 4 on 10/29/2015 by Tank Multani DO at [place] [facility] N/A: Spine Thoracic YVROSE : SPINE [id number] / / Description:in set Glenis 5.5 X 30 Screw Implanted:Qty: 2 on 10/29/2015 by Tank Multani DO at [place] [facility] N/A: Spine Thoracic YVROSE : SPINE [id number] / / Description:in set Glenis Large Laminar Hook Implanted:Qty: 2 on 10/29/2015 by Tank Multani DO at [place] [facility] N/A: Spine Thoracic YVROSE [id number] / / Description:in set Glenis 2 Axel To Axel Connector Implanted:Qty: 4 on 10/29/2015 by Tank Multani DO at [place] [facility] N/A: Spine Thoracic YVROSE [id number] / / Description:in set Axel Alloy [place] 3 Ti 9x859fb - [id number] Implanted:Qty: 2 on 10/29/2015 by Tank Multani DO at [place] [facility] N/A: Spine Thoracic YVROSE : SPINE [id number] / / Description:in set Graft Infuse Bone Med 5983356 - [id number] Implanted:Qty: 1 on 06/13/2017 by Janna Carcamo MD at [place] [facility] N/A: Spine Thoracic [employer] : NEURO CARE 03/22/2019 [id number] / / [id number] Lateral Interbody Size [id number] Zero Degree Implanted:Qty: 1 on 06/13/2017 by Janna Carcamo MD at [place] [facility] Left: Spine Thoracic [employer] 02/23/2022 6101-43298 10LP-G2 / / [id number] Lateral Interbody 09n31v22 Zero Degree Implanted:Qty: 1 on 06/13/2017 by Janna Carcamo MD at [place] [facility] N/A: Spine Thoracic [employer] 02/24/2021 6101-07323 10LP-G2 / / [id number] Graft Infuse Bone Lg 1927021 - [id number] Implanted:Qty: 1 on 06/16/2017 by Tank Multani DO at [place] [facility] N/A: Back [employer] : NEURO CARE 09/20/2018 [id number] / / [id number] Screw Sterling Glenis 3 Ti Set - [id number] Implanted:Qty: 26 on 06/16/2017 by Tank Multani DO at [place] [facility] N/A: Back YVROSE : SPINE 06/17/2017 [id number] / / Description:in set Axel Alloy Glenis 3 Ti 9w485ek - [id number] Implanted:Qty: 2 on 06/16/2017 by Tank Multani DO at [place] [facility] N/A: Back YVROSE : SPINE 06/17/2017 [id number] / / Description:in set Glenis 2 Small Axel Conn Implanted:Qty: 4 on 06/16/2017 by Tank Multani DO at [place] [facility] N/A: Back YVROSE 06/17/2017 [id number] / / Description:in set Screw Polyaxial Xia3 Ti 6x30mm - [id number] Implanted:Qty: 2 on 06/16/2017 by Tank Multani DO at [place] [facility] N/A: Back YVROSE : SPINE 06/17/2017 [id number] / / Description:in set 5.0 X 30 Glenis Screw Implanted:Qty: 4 on 06/16/2017 by Tank Multani DO at [place] [facility] N/A: Back YVROSE 06/17/2017 [id number] / / Description:in set 6.0 X 35 Musa Screw Implanted:Qty: 1 on 06/16/2017 by Tank Multani DO at [place] [facility] N/A: Back YVROSE 06/17/2017 [id number] / / Description:in set 7.0 X 40 Musa Screw Implanted:Qty: 1 on 06/16/2017 by Tank Multani DO at [place] [facility] N/A: Back YVROSE 06/17/2017 [id number] / / Description:in set 7.0 X 45 Musa Screw Implanted:Qty: 1 on 06/16/2017 by Tank Multani DO at [place] [facility] N/A: Back YVROSE 06/17/2017 [id number] / / Description:in set 6.5 X 50 Musa Screw Implanted:Qty: 2 on 06/16/2017 by Tank Multani DO at [place] [facility] N/A: Back YVROSE 06/17/2017 [id number] / / Description:in set 7.0 X 50 Musa Screw Implanted:Qty: 4 on 06/16/2017 by Tank Multani DO at [place] [facility] N/A: Back YVROSE 06/17/2017 [id number] / / Description:in set Biocomposite Swivelock Suture [place] 5.5x22mm Implanted:Qty: 1 on 06/26/2018 by Brown Wall DO at OR [facility] Right: Shoulder 01/21/2020 AR-2323BCT -2 / / [id number] Prox Tenodesis Implant Syst - [id number] Implanted:Qty: 1 on 06/26/2018 by Brown Wall DO at OR [facility] Right: Shoulder [employer] 01/20/2023 AR-2290 / / [id number] Stent Vasc 3x15mm Intracranial St Latexfree Tip Wo Non - [id number] Implanted:Qty: 1 on 06/15/2023 by Andrzej Whitfield MD, PhD at [place] [facility] YVROSE : NEUROVASCULAR 10/25/2026 [id number] 150 / / [id number] Description:right ica Stent Vasc 3x21mm Intracranial St Latexfree Tip Wo Non - [id number] Implanted:Qty: 1 on 06/15/2023 by Andrzej Whitfield MD, PhD at [place] [facility] YVROSE : NEUROVASCULAR 05/31/2026 [id number] 210 / / [id number] Microcatheter 0.010in 0daw36ue Coil System Emblztn Stretch - [id number] Implanted:Qty: 1 on 06/15/2023 by Andrzej Whitfield MD, PhD at [place] [facility] deeplocal [id number] 07/21/2023 7 110-0715 / / [id number] Microcatheter 0.010in 9zfa40bv Coil System Emblztn Stretch - [id number] Implanted:Qty: 1 on 06/15/2023 by Andrzej Whitfield MD, PhD at [place] [facility] deeplocal [id number] 10/20/2026 7 110-0715 / / [id number] Microcatheter 0.010in 9bpv53oq Coil System Emblztn Stretch - [id number] Implanted:Qty: 1 on 06/15/2023 by Andrzej Whitfield MD, PhD at [place] [facility] deeplocal [id number] 09/20/2027 7 110-0619 / / [id number] Microcatheter 0.010in 9cje01da Coil System Emblztn Stretch - [id number] Implanted:Qty: 1 on 06/15/2023 by Andrzej Whitfield MD, PhD at [place] [facility] [employer] [id number] 12/20/2026 7 110-0515 / / [id number] documented as of this encounter Advance Directives [...] Power of Attor katherine? No Care Teams Public Events Facilities Rental Manager Relationship Specialty Start Date End Date Yesi Garcai MD [address] [place] [address] [place] [address] PCP - General Family Medicine 10/27/21 documented as of this encounter
--- OUTSIDE RECORDS SUMMARY | 2024-02-25 04:39 | External Medical Summary | Summary of Care ---
Author Name Unknown Organization [facility] Address [address] [place] [address] Phone [phone] Care Team Providers Care Brake Drum Lathe Operator Name Role Phone Yesi Garcia MD Primary Care Prov ider Encounter Details Date Type Department Care Team (Late st Contact Info) Description 02/09/2024 Population Health External Data Unspecified Department Allergies Active Allergy Reactions Criticality Noted Date Comments Lisinopril Cough Low 10/27/2021 documented as of this encounter (statuses as of 02/13/2024) Medications Medication Sig Dispensed Refills Start Date End Date Status Glucose Blood (ONETOUCH VERIO) STRP Test blood sugar once daily; 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 100 Strip 3 08/03/2019 Active Lancets (ONETOUCH DELICA PLUS [id number]) MISC Test blood sugar once daily; dxE11.9 [...] 03/31/2011 Overview: CONNOR x3 in 02/2011 at [facility] Dyslipidemia, goal LDL below 70 03/31/2011 HX-SKIN [...] 07/02/2014 07/05/2019 coronary artery disease 03/15/201105/2010 Overview: [facility]--+troponin-unstable angina, s/p stenting coronary artery disease 03/15/201112/22 Overview: [facility]--unstable angina s/p stenting Other tenosynovitis of hand [...] No 12/07/2023 documented as of this encounter Plan of Treatment Upcoming Encounters Date Type Department Care Team (Late st Contact Info) Description 04/24/2024 11:30 AM EST Office Visit Cardiology [address] [place] [address] Emerson Hampton PA-C [address] [place] [address] 11/26/2024 1:00 PM EDT Nurse Only Ancillary [address] [place] [address] [place], Nurse [address] [place] [address] 12/03/2024 4:00 PM EDT Telemedicine Neurosurgery, [place] [address] [place] [address] Andrzej Whitfield MD, PhD [address], [place] [id number] Health Maintenance Due Date Last Done Comments [...] this encounter Medical Devices Implanted Type Area Funeral Director And Embalmer Device Identifier Shelf Expiration Date Model / Serial / Lot Dbx 5cc [id number] - [id number] - [id number] Implanted:Qty: 1 on 06/13/2017 [place]cam[place] MD [place] [facility] [place] Left: Spine Thoracic MUSCULOSKELETAL TRANSPLANT FND 10/28/2018 [id number] / [id number] / Chip Cancellous 90cc [id number] - [id number] - [id number] Implanted:Qty: 1 on 06/16/2017 by Tank Multani DO [place] [facility] [place] - Human N/A: Back MUSCULOSKELETAL TRANSPLANT FND 02/22/2018 [id number] / [id number] / Vitoss Bimodal Foam Pack 10cc - [id number] Implanted:Qty: 6 on 10/29/2015 by Tank Multani DO [place] [facility] [place]/A: Spine Thoracic YVROSE : SPINE 11/19/2016 [id number] / / [id number] Revision Post Implanted:Qty: 2 on 10/29/2015 by Tank Multani DO [place] [facility] [place]/A: Spine Thoracic [employer]ICREA [id number] / / Description:in set Screw Sterling Glenis 3 Ti Set - [id number] Implanted:Qty: 22 on 10/29/2015 by Tank Multani DO [place] [facility] [place]/A: Spine Thoracic YVROSE : SPINE [id number] / / Description:in set Screw Glenis Pa Ti 6.5x50mm - [id number] Implanted:Qty: 2 on 10/29/2015 by Tank Multani DO [place] [facility] [place]A: Spine Thoracic YVROSE : SPINE [id number] / / Description:in set Screw Glenis Pa Ti 6.5x45mm - [id number] Implanted:Qty: 2 on 10/29/2015 by Tank Multani DO [place] [facility] [place]/A: Spine Thoracic YVROSE : SPINE [id number] / / Description:in set Screw Glenis Pa Ti 6.5x40mm - [id number] Implanted:Qty: 2 on 10/29/2015 by Tank Multani DO [place] [facility] [place]/A: Spine Thoracic YVROSE : SPINE [id number] / / Description:in set Screw Glenis Pa Ti 5.5x35mm - [id number] Implanted:Qty: 4 on 10/29/2015 by Tank Multani DO [place] [facility] [place]/A: Spine Thoracic YVROSE : SPINE [id number] / / Description:in set Glenis 5.5 X 30 Screw Implanted:Qty: 2 on 10/29/2015 by Tank Multani DO [place] [facility] [place]/A: Spine Thoracic YVROSE : SPINE [id number] / / Description:in set Glenis Large Laminar Hook Implanted:Qty: 2 on 10/29/2015 by Tank Multani DO [place] [facility] [place]/A: Spine Thoracic YVROSE [id number] / / Description:in set Glenis 2 Axel To Axel Connector Implanted:Qty: 4 on 10/29/2015 by Tank Multani DO [place] [facility] [place]/A: Spine Thoracic YVROSE [id number] / / Description:in set Axel Alloy Glenis 3 Ti [id number] - [id number] Implanted:Qty: 2 on 10/29/2015 by Tank Multani DO [place] [facility] [place]/A: Spine Thoracic YVROSE : SPINE [id number] / / Description:in set Graft Infuse Bone Med [id number] - [id number] Implanted:Qty: 1 on 06/13/2017 by Janna Carcamo MD [place] [facility] [place]A: Spine Thoracic [employer] : NEURO CARE 03/22/2019 [id number] / / [id number] Lateral Interbody Size [id number] Zero Degree Implanted:Qty: 1 on 06/13/2017 by Janna Carcamo MD [place] [facility] [place] Left: Spine Thoracic [employer] 02/23/2022 [id number] 10LP-G2 / / [id number] Lateral Interbody [id number] Zero Degree Implanted:Qty: 1 on 06/13/2017 by Janna Carcamo MD [place] [facility] [place]/A: Spine Thoracic [employer] 02/24/2021 [id number] 10LP-G2 / / [id number] Graft Infuse Bone Lg [id number] - [id number] Implanted:Qty: 1 on 06/16/2017 by Tank Multani DO [place] [facility] [place]/A: Back [employer] : NEURO CARE 09/20/2018 [id number] / / [id number] Screw Sterling Glenis 3 Ti Set - [id number] Implanted:Qty: 26 on 06/16/2017 by Tank Multani DO [place] [facility] [place]/A: Back YVROSE : SPINE 06/17/2017 [id number] / / Description:in set Axel Alloy Glenis 3 Ti [id number] - [id number] Implanted:Qty: 2 on 06/16/2017 by Tank Multani DO [place] [facility] [place]/A: Back YVROSE : SPINE 06/17/2017 [id number] / / Description:in set Glenis 2 Small Axel Conn Implanted:Qty: 4 on 06/16/2017 by Tank Multani DO [place] [facility] [place]/A: Back YVROSE 06/17/2017 [id number] / / Description:in set Screw Polyaxial Xia3 Ti 6x30mm - [id number] Implanted:Qty: 2 on 06/16/2017 by Tank Multani DO [place] [facility] [place]/A: Back YVROSE : SPINE 06/17/2017 [id number] / / Description:in set 5.0 X 30 Glenis Screw Implanted:Qty: 4 on 06/16/2017 by Tank Multani DO [place] [facility] [place]A: Back YVROSE 06/17/2017 [id number] / / Description:in set 6.0 X 35 Musa Screw Implanted:Qty: 1 on 06/16/2017 by Tank Multani DO [place] [facility] [place]/A: Back YVROSE 06/17/2017 [id number] / / Description:in set 7.0 X 40 Musa Screw Implanted:Qty: 1 on 06/16/2017 by Tank Multani DO [place] [facility] [place]/A: Back YVROSE 06/17/2017 [id number] / / Description:in set 7.0 X 45 Musa Screw Implanted:Qty: 1 on 06/16/2017 by Tank Multani DO [place] [facility] [place]/A: Back YVROSE 06/17/2017 [id number] / / Description:in set 6.5 X 50 Musa Screw Implanted:Qty: 2 on 06/16/2017 by Tank Multani DO [place] [facility] [place]/A: Back YVROSE 06/17/2017 [id number] / / Description:in set 7.0 X 50 Musa Screw Implanted:Qty: 4 on 06/16/2017 by Tank Multani DO [place] [facility] [place]/A: Back YVROSE 06/17/2017 [id number] / / Description:in set Biocomposite Swivelock Suture [place] 5.5x22mm Implanted:Qty: 1 on 06/26/2018 by Brown Wall DO at OR [facility] Right: Shoulder 01/21/2020 [id number] -2 / / [id number] Prox Tenodesis Implant Syst - [id number] Implanted:Qty: 1 on 06/26/2018 by Brown Wall DO at OR [facility] Right: Shoulder [employer] 01/20/2023 [id number] / / [id number] Stent Vasc 3x15mm Intracranial St Latexfree Tip Wo Non - [id number] Implanted:Qty: 1 on 06/15/2023 by Andrzej Whitfield MD, PhD [place] [facility] [place] [employer]SE : NEUROVASCULAR 10/25/2026 [id number] / / [id number] Description:right ica Stent Vasc 3x21mm Intracranial St Latexfree Tip Wo Non - [id number] Implanted:Qty: 1 on 06/15/2023 by Andrzej Whitfield MD, PhD [place] [facility] [place] [employer]VROSE : NEUROVASCULAR 05/31/2026 [id number] / / [id number] Microcatheter 0.010in [id number] Coil System Embztn Stretch - [id number] Implanted:Qty: 1 on 06/15/2023 by Andrzej Whitfield MD, PhD [place] [facility] [place] [employer] [place] [employer] [id number] 07/21/2023 7 110-0715 / / [id number] Microcatheter 0.010in [id number] Coil System Emblztn Stretch - [id number] Implanted:Qty: 1 on 06/15/2023 by Andrzej Whitfield MD, PhD [place] [facility] [place] [employer] [place] [employer] [id number] 10/20/2026 7 110-0715 / / [id number] Microcatheter 0.010in [id number] Coil System Emblztn Stretch - [id number] Implanted:Qty: 1 on 06/15/2023 by Andrzej Whitfield MD, PhD [place] [facility] [place] [employer] [id number] 09/20/2027 7 110-0619 / / [id number] Microcatheter 0.010in [id number] Coil System Emblztn Stretch - [id number] Implanted:Qty: 1 on 06/15/2023 by Andrzej Whitfield MD, PhD [place] [facility] [place] [employer] [id number] 12/20/2026 7 110-0515 / / [id number] documented as of this encounter Advance Directives [...] Power of Attor katherine? No Care Teams Brake Drum Lathe Operator Relationship Specialty Start Date End Date Yesi Garcia MD [address] [place] [address] [place] [address] PCP - General Family Medicine 10/27/21 documented as of this encounter
--- NOTE | 2024-02-25 04:52 | History & Physical Report ---
Date of Service February 25, 2024 Assessment & Plan (1) TIA (transient ischemic attack): Plan: Presenting as transient RLE weakness ? Possible aspirin failure CAD status post stent Cerebral aneurysm/PVD status post surgery hypertension, stable hyperlipidemia, on statin Rx DM2 on oral medications, well-controlled as of recent hemoglobin A1c of 5.29 November 2023 chronic anemia, hemoglobin at baseline Possible alcohol abuse past tobacco abuse OBS Medical telemetry Neurochecks Plavix for possible aspirin failure until acute stroke ruled out MRI/MRA brain, TTE, carotid Dopplers for stroke workup Neurology consult contingent on MRI results Update lipid profile ISS BG goal 1 02-20 40, update hemoglobin A1c WILLOW S at risk protocol, DT precautions DVT prophylaxis. Lovenox subcu Full code Text document was generated using [email or web address] voice recognition software. It may contain grammatical or spelling errors. Kindly contact undersigned for clarification of any documentation item in question. History of Present Illness Chief Complaint: Transient right leg weakness Primary Care Provider: Yesi Clifford MD History obtained from patient and records. Medical history significant for CAD status post stent, PVD status post surgery, cerebral aneurysm, hypertension, hyperlipidemia, DM2 on oral medications, chronic anemia (baseline hemoglobin of 12), mood disorder, chronic back pain status post spinal cord stimulator,, past tobacco abuse. Last confinement January 2023 under Orthopedics service for elective left total knee arthroplasty. Prolonged hospital stay secondary to alcohol withdrawal delirium. Patient was watching television last night when he noted transient right lower leg weakness. Denies unusual back pain. No headache, no chest pain, no SOB. Compliant with home aspirin Rx. RLE weakness currently resolved at the ER. 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 Allergies Allergy/AdvReac Type Severity Reaction Status Date / Time lisinopril AdvReac Mild Cough Verified 02/25/24 02:25 Home Medications Medication Instructions Recorded Confirmed Type clobetasol 0.05 % topical cream 1 appln topical DAILY PRN Skin 01/12/19 02/25/24 History Irritation gabapentin 600 mg tablet 600 mg PO QID 01/12/19 02/25/24 History metoprolol tartrate 50 mg tablet 50 mg PO BID 01/12/19 02/25/24 History rosuvastatin 20 mg tablet (Crestor) 20 mg PO QAM 01/12/19 02/25/24 History sildenafil 100 mg tablet 100 mg PO DAILY PRN Sexual Activity 02/01/19 02/25/24 History amlodipine 5 mg tablet 5 mg PO QAM 12/21/22 02/25/24 History cyanocobalamin (vitamin B-12) 1,000 mcg PO QAM 12/21/22 02/25/24 History 1,000 mcg tablet famotidine 20 mg tablet 20 mg PO QPM 12/21/22 02/25/24 History hydrochlorothiazide 25 mg tablet 25 mg PO 6XWK 12/21/22 02/25/24 History hydrochlorothiazide 50 mg tablet 50 mg PO WK 12/21/22 02/25/24 History losartan 100 mg tablet 100 mg PO QAM 12/21/22 02/25/24 History metformin 500 mg tablet 500 mg PO BID 12/21/22 02/25/24 History oxycodone 5 mg capsule 5 mg PO Q6H PRN pain #20 caps 01/25/23 02/25/24 Rx acetaminophen 650 mg 650 mg PO Q12H 02/25/24 02/25/24 History tablet,extended release (Arthritis Pain Relief (acetaminophen) ER) baclofen 20 mg tablet 20 mg PO BID 02/25/24 02/25/24 History duloxetine 60 mg capsule,delayed 60 mg PO QAM 02/25/24 02/25/24 History release Past Med/Surg History Problem List (Updated 02/25/24 @ 09:15 by Moiz Broderick MD) TIA (transient ischemic attack) Fall (Acute) Right leg weakness (Acute) Alcohol withdrawal delirium Fall Head injury S/P total knee arthroplasty Encounter for pre-operative examination Lumbar stenosis with neurogenic claudication (Acute 02/11/14) Back pain (Acute) C. difficile colitis Colitis HTN (hypertension) controlled, stable per pt Medical History Coronary artery disease s/p 3 2010 Diabetes mellitus, type 2 NIDDM Gout HTN (hypertension) controlled, stable per pt Hyperlipidemia Medical marijuana use Neuropathy of both feet Surgical History History of cardiac cath 03/20/11 @ [facility] with 3 CONNOR placed (pt states was on plavix taken off roughly 6 months ago)--follows with Emerson Hampton PA-C @ [place] History of carpal tunnel release of both wrists History of colonoscopy History of decompression of ulnar nerve right History of heart artery stent 3 CONNOR placed 03/20/11 @ [facility] History of hernia surgery History of repair of right rotator cuff History of spinal fusion x3--per pt from cervical to lumbar region, normal ROM History of tooth extraction Status post trigger finger release Family History Other No family history of adverse response to anesthesia Social History Smoking Status: Former smoker Tobacco Type: Cigarettes Second Hand Exposure: No; Do You Dip or Chew Tobacco: No; Hx Alcohol Use: Yes Alcohol type: beer Hx Substance Use: No Preferred Language: Yi Communication Ability: Effective Fingernail Technician Required: No Beliefs That Will Affect Care: None Current Living Situation: Alone Feels Safe at Home: Yes Assistive Devices: None Review of Systems Review of Systems: As per HPI, all other systems reviewed and negative Physical Exam Physical Exam: GENERAL: Comfortable, pleasant, no respiratory distress SKIN: Pallor, warm HEENT: Pale palpebral conjunctivae, no ptosis, dry buccal mucosa NECK : Supple, no tenderness CHEST : CTA, no tenderness HEART : RRR, no obvious murmurs ABDOMEN: no distention, nontender EXTREMITIES : No LE swelling/tenderness, no other conspicuous deformities noted NEUROLOGIC : Coherent, no facial asymmetry, MMTS 4/5, gait and stance not assessed Results & Data Results & Data Vital Signs (Past 12 Hours) Vital Signs Temp Pulse Pulse Resp BP BP Pulse Ox 02/25/24 03:00 65 18 147/67 H 98 02/25/24 02:24 70 02/25/24 01:15 67 17 125/73 97 02/25/24 00:36 36.7 C 72 18 146/63 H 98 O2 Del Method 02/25/24 03:00 Room Air 02/25/24 02:24 02/25/24 01:15 Room Air 02/25/24 00:36 Room Air Laboratory Results Laboratory Results WBC 7.51 K/ul (4.8-10.8) 02/25/24 00:40 RBC 4.22 M/uL (4.70-6.10) L 02/25/24 00:40 Hgb 12.4 g/dl (14.0-18.0) L 02/25/24 00:40 Hct 39.0 % (42.0-52.0) L 02/25/24 00:40 MCV 92.4 fL (80.0-100.0) 02/25/24 00:40 MCH 29.4 pg (25.0-34.0) 02/25/24 00:40 MCHC 31.8 g/dL (32.0-36.0) L 02/25/24 00:40 RDW Std Deviation 46.8 fL (36.4-46.3) H 02/25/24 00:40 RDW Coeff of Art 13.9 % (11.5-14.5) 02/25/24 00:40 Plt Count 154 K/uL (130-400) 02/25/24 00:40 MPV 11.6 fL (9.4-12.4) 02/25/24 00:40 Immature Gran % (Auto) 0.5 % 02/25/24 00:40 Neut % (Auto) 77.6 % 02/25/24 00:40 Lymph % (Auto) 13.2 % 02/25/24 00:40 Alcorn % (Auto) 7.9 % 02/25/24 00:40 Eos % (Auto) 0.4 % 02/25/24 00:40 Baso % (Auto) 0.4 % 02/25/24 00:40 Neut # (Auto) 5.83 K/uL (1.40-6.50) 02/25/24 00:40 Lymph # (Auto) 0.99 K/uL (1.20-3.40) L 02/25/24 00:40 Alcorn # (Auto) 0.59 K/uL (0.11-0.59) 02/25/24 00:40 Eos # (Auto) 0.03 K/uL (0.00-0.50) 02/25/24 00:40 Baso # (Auto) 0.03 K/uL (0.00-0.20) 02/25/24 00:40 Immature Gran # (Auto) 0.04 K/uL (0.01-0.20) 02/25/24 00:40 Sodium 143 mmol/L (136-145) 02/25/24 00:40 Potassium 4.0 mmol/L (3.5-5.1) 02/25/24 00:40 Chloride 105 mmol/L (98-107) 02/25/24 00:40 Carbon Dioxide 28 mmol/L (21-32) 02/25/24 00:40 Anion Gap 10 (3-11) 02/25/24 00:40 BUN 30 mg/dl (6-23) H 02/25/24 00:40 Creatinine 1.34 mg/dl (0.6-1.4) 02/25/24 00:40 Est Cr Clr Drug Dosing 43.0 ml/min 02/25/24 00:40 eGFR 54.56 02/25/24 00:40 BUN/Creatinine Ratio 22.4 (10-20) H 02/25/24 00:40 Glucose 125 mg/dl (70-99(Fasting)) H 02/25/24 00:40 Calcium 10.0 mg/dl (8.6-10.3) 02/25/24 00:40 Magnesium 2.2 mg/dl (1.7-2.4) 02/25/24 00:40 Total Bilirubin 1.3 mg/dl (0.2-1.0) H 02/25/24 00:40 AST 13 U/L (13-39) 02/25/24 00:40 ALT 12 U/L (7-52) 02/25/24 00:40 Alkaline Phosphatase 47 U/L (34-104) 02/25/24 00:40 Total Protein 7.3 gm/dl (6.0-8.3) 02/25/24 00:40 Albumin 4.7 gm/dl (3.4-5.0) 02/25/24 00:40 Globulin 2.6 gm/dl (2.5-4.0) 02/25/24 00:40 Albumin/Globulin Ratio 1.8 (0.9-2) 02/25/24 00:40 TSH 0.678 uIu/ml (0.300-4.500) 02/25/24 00:[address] 02/25/24 01:20 Exam(s): CT HEAD Without Contrast EXAM: CT Head Without Intravenous Contrast CLINICAL HISTORY: Reason for exam: R > L weakness, weakness. TECHNIQUE: Axial computed tomography images of the head/brain without intravenous contrast. CTDI is 36.18 mGy and DLP is 625.8 mGy-cm. Automated exposure control was utilized for the study. A dose lowering technique was utilized adhering to the principles of ALARA. 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 Associated artifact somewhat limits evaluation. Mild volume loss with prominent ventricles and sulci. Mild periventricular white matter hypoattenuation likely reflects chronic small vessel disease. No hemorrhage. Ventricles: See above. Bones/joints: Unremarkable. No acute fracture. Soft tissues: Unremarkable. Sinuses: Mild paranasal sinus mucosal thickening. No sinus fluid levels. Mastoid air cells: Unremarkable as visualized. No mastoid effusion. IMPRESSION: 1. No evidence of acute intracranial abnormality. 2. 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 Electronically signed by: Cady Michael M.D. 02/25/24 04:20 AM Diagnostic Findings EKG as per my interpretation : Rate 65, NSR, normal axis, T wave flattening inferior leads
[2024-02-25] MEDS ORDERED: LORazepam 2 MG/1 ML VIAL IV PRN (04:54)
[2024-02-25] MEDS ORDERED: PHARMACIST DISCHARGE MED REC CONSULT PRN (04:54)
[2024-02-25] MEDS ORDERED: PROMETHAZINE 6.25 MG/50.25 ML BAG IV PRN (04:54)
[2024-02-25] MEDS ORDERED: GLUCAGON FOR INJ 1 MG VIAL SQ PRN (04:57)
[2024-02-25] MEDS ORDERED: GLUCOSE 10 TAB/TUBE PO PRN (04:57)
[2024-02-25] MEDS ORDERED: CARBOHYDRATES FOR HYPOGLYCEMIA PO PRN (04:57)
[2024-02-25] MEDS ORDERED: GLUCOSE 40% GEL 15 GM TUBE PO PRN (04:57)
[2024-02-25] MEDS ORDERED: DEXTROSE 50% 50 ML SYRINGE IV PRN (04:57)
[2024-02-25] MEDS: CLOPIDOGREL BISULFATE 75 MG TAB PO ONE (05:18)
[2024-02-25 07:13] LABS: Basophils # (auto) 0.02 K/uL (0.00-0.20); Basophils % (auto) 0.3 %; Eosinophils # (auto) 0.03 K/uL (0.00-0.50); Eosinophils % (auto) 0.4 %; Hematocrit (blood only) 35.4 % (42.0-52.0); Immature Granulocytes # (auto) 0.04 K/uL (0.01-0.20); Immature Granulocytes % (auto) 0.5 %; Lymphocytes # (auto) 0.91 K/uL (1.20-3.40); Lymphocytes % (auto) 12.3 %; Mean Corpuscular Hemoglobin 30.4 pg (25.0-34.0); Mean Corpuscular Hgb Conc 33.9 g/dL (32.0-36.0); Mean Corpuscular Volume 89.6 fL (80.0-100.0); Mean Platelet Volume 12.3 fL (9.4-12.4); Monocytes # (auto) 0.68 K/uL (0.11-0.59); Monocytes % (auto) 9.2 %; Neutrophils # (auto) 5.71 K/uL (1.40-6.50); Neutrophils % (auto) 77.3 %; Platelet Count 148 K/uL (130-400); RDW Coefficient of Variation 13.6 % (11.5-14.5); RDW Standard Deviation 44.9 fL (36.4-46.3); Red Blood Count 3.95 M/uL (4.70-6.10); White Blood Count 7.39 K/ul (4.8-10.8)
[2024-02-25 07:38] LABS: BUN Creatinine Ratio 22.6 (10-20); Calcium 9.6 mg/dl (8.6-10.3); Chol HDL Ratio 2.8 (0-5); Creatinine Clr Calc Pharmacy 50.1 ml/min
[2024-02-25 07:41] LABS: Estimated Average Glucose 120 mg/dl; Hemoglobin A1C 5.8 % (4.5-5.6)
[2024-02-25] MEDS: POTASSIUM CHLORIDE CRTAB 20 MEQ TABCR PO ONE (08:52)
[2024-02-25] MEDS: MULTIVITAMIN TAB PO SCH (08:52)
[2024-02-25] MEDS: FOLIC ACID 1 MG TAB PO SCH (08:53)
[2024-02-25] MEDS: POTASSIUM CHLORIDE / WTR 10 MEQ/100 ML PLCT IV SCH (08:55)
[2024-02-25] MEDS: ACETAMINOPHEN 325 MG TAB PO PRN (09:00)
--- NOTE | 2024-02-25 09:17 | Ultrasound Report ---
CAROTID ARTERY ULTRASOUND CLINICAL HISTORY: Transient ischemic attack. COMPARISON STUDY: None. TECHNIQUE: Real-time, grayscale, and color Doppler sonography of the carotid and vertebral arteries w as performed. Images were viewed in the transverse and longitudinal planes. FINDINGS: There is moderate atherosclerotic plaque. Velocity measurements are listed below. COMMON CAROTID PEAK SYSTOLIC VELOCITY (CM/S): RIGHT 87 LEFT 103 ICA PEAK SYSTOLIC VELOCITY (CM/S): RIGHT 106 LEFT 94 Systolic ratios between internal to common carotid arteries are normal. Antegrade flow is seen in the vertebral arteries. The external carotid arteries are patent. IMPRESSION: No evidence for a hemodynamically significant stenosis. ACT 112: Negative or not required by law. Electronically signed by: Hossein Mathur M.D. 02/25/2024 9:16 AM
--- NOTE | 2024-02-25 10:44 | Electrocardiogram Report ---
Test Reason : Blood Pressure : */* mmHG Vent. Rate : 67 BPM Atrial Rate : 67 BPM P-R Int : 194 ms QRS Dur : 92 ms QT Int : 426 ms P-R-T Axes : 36 25 55 degrees QTcB Int : 450 ms Normal sinus rhythm Normal ECG When compared with ECG of 16-Jul-2017 14:53, No significant change was found Confirmed by Maurilio Ordonez ([id number]) on 02/25/2024 10:43:54 AM Referred By: REFERRED SELF Confirmed By: Maurilio Ordonez
[2024-02-25] MEDS: INSULIN ASPART PER UNIT CHARGE SC SCH (11:24)
--- NOTE | 2024-02-25 11:26 | Magnetic Resonance Report ---
MRI OF THE BRAIN WITHOUT CONTRAST CLINICAL HISTORY: Transient ischemic attack. Right lower extremity weakness. COMPARISON STUDY: MRI of the brain January 15, 2023. Head CT performed earlier today. TECHNIQUE: Utilizing a 1.5 Jyoti magnet and dedicated coil, multiplanar, multiecho imaging of the bra in was performed without IV contrast. FINDINGS: There is a small focus of restricted diffusion measuring approximately 1 cm within the post erior medial left frontal lobe. This focus may be slightly hypointense on the ADC map although is dif ficult to correlate given small size. Ventricular system is unremarkable. Basal cisterns are patent. There are no extra axial collections. Susceptibility artifact from the coils within the anterior comm unicating artery is noted. There are no extra-axial collections. White matter T2 hyperintense foci guerar ggest small vessel disease. IMPRESSION: 1. Small focus of restricted diffusion measuring approximately 1 cm within the posterior medial left frontal lobe suggestive of an acute to subacute infarct. No mass effect. No evidence for hemorrhagic conversion. 2. 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 ACT 112: Negative or not required by law. Electronically signed by: Hossein Mathur M.D. 02/25/2024 11:23 AM
--- NOTE | 2024-02-25 11:35 | Magnetic Resonance Report ---
MRA OF THE INTRACRANIAL CIRCULATION WITHOUT CONTRAST CLINICAL HISTORY: Transient ischemic attack. COMPARISON STUDY: CTA of the head January 16, 2023. TECHNIQUE: Utilizing a 1.5 Jyoti magnet and 3-D [id number] technique, unenhanced MRA of the intra cranial circulation was obtained. FINDINGS: Susceptibility artifact from the coils within the anterior communicating artery aneurysm ar e noted. There is apparent trace flow within the aneurysm. There is asymmetric diminished caliber of the left anterior cerebral artery and its branches. This finding is age indeterminate. The bilateral M1 and M2 segments are patent. The left vertebral artery is dominant. Posterior circulation is intact . No additional intracranial aneurysms are identified. IMPRESSION: 1. Status post endovascular coiling of an anterior communicating artery. Apparent trace flow within t he aneurysm sac. The vast majority of the aneurysm sac is occluded. No additional intracranial aneury sms. 2. Asymmetric diminished caliber of the left anterior cerebral artery and its branches. This finding is age indeterminate. ACT 112: Negative or not required by law. Electronically signed by: Hossein Mathur M.D. 02/25/2024 11:32 AM
--- NOTE | 2024-02-25 14:57 | Hospitalist Progress Note ---
Date of Service February 25, 2024 Assessment & Plan (1) CVA (cerebral vascular accident): Plan: Acute CVA--POA --MRI Brain: Small focus of restricted diffusion measuring approximately 1 cm within the posterior medial left frontal lobe suggestive of an acute to subacute infarct. No mass effect. No evidence for hemorrhagic conversion. 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 --Carotid USD: No evidence for a hemodynamically significant stenosis. --Head MRA:Status post endovascular coiling of an anterior communicating artery. Apparent trace flow within the aneurysm sac. The vast majority of the aneurysm sac is occluded. No additional intracranial aneurysms. Asymmetric diminished caliber of the left anterior cerebral artery and its branches. This finding is age indeterminate. --ECHO: EF 55 to 60%. Grade 1 diastolic dysfunction. Trace MR, TR. Negative bubble study for any intra-atrial septal defect --Lipid panel showed elevated triglycerides, VLDL, LDL 32. Suspicion for aspirin failure Started on Plavix 75 mg daily Continue Crestor Consulted Neurology PT, OT, Speech Eval Continue Neuro checks, Fall precautions Allow permissive hypertension Hypokalemia Replete electrolytes as needed Monitor CADS/P stent Cerebral aneurysm/PVD s/p surgery Continue Plavix, statin as above Hypertension Allow permissive hypertension in setting of acute CVA Resume home medications as able Monitor BP Hyperlipidemia on DM II HbA1c 5.8 Continue insulin while hospitalized Monitor BGs Chronic Aanemia Hb at baseline Monitor CBC Possible alcohol abuse Past tobacco abuse Continue home gabapentin Continue thiamine, folic acid Monitor for any withdrawal DVT Px: Lovenox SQ Code Status Full code Admission and Anticipated Discharge Date Admission Date: February 25, 2024 Subjective Patient is seen and examined at bedside States right leg weakness slightly better today Offers no other complaints Denies any chest pain, dyspnea, nausea, vomiting, abdominal pain, change in vision, dysarthria Review of Systems Review of Systems: All systems reviewed & are unremarkable except as noted in Subjective Physical Exam Physical Exam: Physical Exam: Vitals signs as noted above General Appearance:Moderately built and nourished, chronic ill appearing, no apparent distress Head: normocephalic, Atraumatic Eyes: normal inspection, EOMI Neck: supple, Trachea midline Respiratory/Chest: Normal breath sounds, CTA, No accessory muscle use Cardiovascular: S1, S2, No murmur Abdomen/GI:Soft, Non tender, Bowel sounds present Extremities/Musculoskeletal:normal inspection, no edema Neurologic/Psych:AAOX3, RLE 3-4/5 otherwise grossly no focal neurological deficits Skin: normal color, warm Results & Data Results & Data Vital Signs (Past 12 Hours) Vital Signs Pulse Pulse Resp BP Pulse Ox O2 Del Method 02/25/24 10:02 96 Room Air 02/25/24 10:01 87 20 145/76 H 96 Room Air 02/25/24 06:30 68 17 132/72 97 Room Air 02/25/24 06:11 70 02/25/24 05:33 72 18 158/108 H 95 Room Air 02/25/24 05:00 76 20 112/85 98 Room Air 02/25/24 03:00 65 18 147/67 H 98 Room Air Laboratory Results Short CBC 02/25/24 02/25/24 Range/Units 00:40 06:27 WBC 7.51 7.39 (4.8-10.8) K/ul Hgb 12.4 L 12.0 L (14.0-18.0) g/dl Hct 39.0 L 35.4 L (42.0-52.0) % Plt Count 154 148 (130-400) K/uL [facility] 02/25/24 02/25/24 00:40 06:27 Sodium 143 144 Potassium 4.0 3.0 L D Chloride 105 105 Carbon Dioxide 28 29 BUN 30 H 26 H Creatinine 1.34 1.15 Glucose 125 H 98 Calcium 10.0 9.6 Liver Function 02/25/24 Range/Units 00:40 Total Bilirubin 1.3 H (0.2-1.0) mg/dl AST 13 (13-39) U/L ALT 12 (7-52) U/L Alkaline Phosphatase 47 (34-104) U/L Albumin 4.7 (3.4-5.0) gm/dl
[2024-02-25] MEDS: GABAPENTIN 600 MG TAB PO SCH (16:29)
[2024-02-25] MEDS: METOPROLOL TARTRATE 50 MG TAB PO SCH (21:20)
[2024-02-25] MEDS: FAMOTIDINE 20 MG TAB PO SCH (21:21)
--- NOTE | 2024-02-25 21:44 | Communication Note ---
Date of Service: February 25, 2024
[2024-02-26 06:03] LABS: Hematocrit (blood only) 36.3 % (42.0-52.0); Hemoglobin 11.8 g/dl (14.0-18.0); Mean Corpuscular Hemoglobin 29.8 pg (25.0-34.0); Mean Corpuscular Hgb Conc 32.5 g/dL (32.0-36.0); Mean Corpuscular Volume 91.7 fL (80.0-100.0); Mean Platelet Volume 11.7 fL (9.4-12.4); Platelet Count 138 K/uL (130-400); RDW Coefficient of Variation 13.8 % (11.5-14.5); RDW Standard Deviation 46.5 fL (36.4-46.3); Red Blood Count 3.96 M/uL (4.70-6.10); White Blood Count 6.09 K/ul (4.8-10.8)
[2024-02-26 06:19] LABS: BUN Creatinine Ratio 18.2 (10-20); Calcium 9.6 mg/dl (8.6-10.3); Creatinine Clr Calc Pharmacy 65.4 ml/min; Magnesium 1.9 mg/dl (1.7-2.4); Potassium 3.7 mmol/L (3.5-5.1)
[2024-02-26] MEDS: ROSUVASTATIN CALCIUM 20 MG TAB PO SCH (08:15)
[2024-02-26] MEDS: THIAMINE HCL 100 MG TAB PO SCH (08:16)
[2024-02-26] MEDS: DULoxetine HCL 60 MG CAP PO SCH (08:16)
[2024-02-26] MEDS: ENOXAPARIN INJ 40 MG/0.4 ML SYR SQ SCH (08:17)
[2024-02-26] MEDS: CLOPIDOGREL BISULFATE 75 MG TAB PO SCH (08:38)
--- NOTE | 2024-02-26 10:30 | Neurology Consultation ---
Date of Consultation February 26, 2024 Assessment & Plan (1) CVA (cerebral vascular accident): Recommend continued stroke work up to include the following: Echocardiogram as part of complete stroke workup Continue frequent neurological assessments Obtain stat CT brain without contrast for any acute neurological decline Continue to monitor/control blood pressure & blood glucose Continue to monitor telemetry closely Recommend ZioPatch at DC if no evidence of arrhythmia during inpatient monitoring Continue to monitor renal and hepatic function, keep euvolemic Metabolic workup should include hgbA1c, fasting lipids, homocysteine, TSH, D Dimer, RPR, urinalysis Recommend DAPT for at least 3 weeks Recommend high dose statin therapy indefinitely if tolerated Ok from neurology perspective for VTE prophylaxis PT/OT/SLT to eval and treat Recommend eval for CLAY and consider outpatient polysomnography Follow up with Neurology Telehealth Consultation Telehealth Information Telehealth Information: I performed this visit using a real-time telehealth connection between my location and the patients location ([facility]). After connecting through interactive tele-video, patient was identified by name and date of and/or wristband check.Patient (or authorized healthcare physician relations representative) was informed that this was a telemedicine visit and it was being conducted confidentially over secure lines. My office door was closed and no one else was present in the room with me.Patient (or authorized healthcare physician relations representative) provided consent to proceed with the visit, expressed an underst anding of privacy and security of the telemedicine visit, and gave permission to have a hospital physician relations representative in the room in order to assist with the visit and to conduct portions of the visit, as needed. I informed the patient (or authorized healthcare physician relations representative) that I reviewed their record and presented the opportunity for them to ask any questions regarding the visit today. The patient agreed to participate. History of Present Illness Reason for Consultation: Stroke Requesting Physician: Dr. Nash Attending Physician: Bridger Nash MD History of Present Illness 78yo male presented with reported RLE weakness. He has undergone stroke imaging including CT brain without contrast revealing no overt evidence of hemorrhage. MRI brain reveals area of acute to subacute infarct left frontal lobe. MRA brain depicts no overt evidence of occlusion or flow limiting stenosis. Has has US carotids performed without notable increased velocities. I have performed televideo consultation. He is alert & oriented; able to answer all questions appropriately, name objects on televideo monitor, repeat phrases and perform complex/embedded commands without deficit. Neurological exam reveals RLE weakness as well as LLE weakness he reports has been ongoing. He has had a Right TKA. He also reports LUE weakness and plans for surgery but there is no notable drift in upper extremity motor strength assessment. Allergies Allergy/AdvReac Type Severity Reaction Status Date / Time lisinopril AdvReac Mild Cough Verified 02/25/24 02:25 Home Medications Medication Instructions Recorded Confirmed Type clobetasol 0.05 % topical cream 1 appln topical DAILY PRN Skin 01/12/19 02/25/24 History Irritation gabapentin 600 mg tablet 600 mg PO QID 01/12/19 02/25/24 History metoprolol tartrate 50 mg tablet 50 mg PO BID 01/12/19 02/25/24 History rosuvastatin 20 mg tablet (Crestor) 20 mg PO QAM 01/12/19 02/25/24 History sildenafil 100 mg tablet 100 mg PO DAILY PRN Sexual Activity 02/01/19 02/25/24 History amlodipine 5 mg tablet 5 mg PO QAM 12/21/22 02/25/24 History cyanocobalamin (vitamin B-12) 1,000 mcg PO QAM 12/21/22 02/25/24 History 1,000 mcg tablet famotidine 20 mg tablet 20 mg PO QPM 12/21/22 02/25/24 History hydrochlorothiazide 25 mg tablet 25 mg PO 6XWK 12/21/22 02/25/24 History hydrochlorothiazide 50 mg tablet 50 mg PO WK 12/21/22 02/25/24 History losartan 100 mg tablet 100 mg PO QAM 12/21/22 02/25/24 History metformin 500 mg tablet 500 mg PO BID 12/21/22 02/25/24 History oxycodone 5 mg capsule 5 mg PO Q6H PRN pain #20 caps 01/25/23 02/25/24 Rx acetaminophen 650 mg 650 mg PO Q12H 02/25/24 02/25/24 History tablet,extended release (Arthritis Pain Relief (acetaminophen) ER) baclofen 20 mg tablet 20 mg PO BID 02/25/24 02/25/24 History duloxetine 60 mg capsule,delayed 60 mg PO QAM 02/25/24 02/25/24 History release Patient History Medical History Coronary artery disease s/p 3 CONNOR 2010 Diabetes mellitus, type 2 NIDDM Gout HTN (hypertension) controlled, stable per pt Hyperlipidemia Medical marijuana use Neuropathy of both feet Surgical History History of cardiac cath 03/20/11 @ [facility] with 3 CONNOR placed (pt states was on plavix taken off roughly 6 months ago)--follows with Emerson Hampton PA-C @ [place] History of carpal tunnel release of both wrists History of colonoscopy History of decompression of ulnar nerve right History of heart artery stent 3 CONNOR placed 03/20/11 @ [facility] History of hernia surgery History of repair of right rotator cuff History of spinal fusion x3--per pt from cervical to lumbar region, normal ROM History of tooth extraction Status post trigger finger release Family History Other No family history of adverse response to anesthesia Social History Smoking Status: Former smoker Tobacco Type: Cigarettes Second Hand Exposure: Yes; Do You Dip or Chew Tobacco: No; Tobacco Cessation Education Requested by Patient: No Hx Alcohol Use: Yes Alcohol type: beer Hx Substance Use: Yes Last Used Substance: Unknown Last Used Substance Other:: last used medical marijuana card 3 months ago. Used marijuana once a week. Preferred Language: Belarusian Communication Ability: Effective Designated Broker Required: No Beliefs That Will Affect Care: None Current Living Situation: Alone Other Information That Helps Us Care for You: No Feels Safe at Home: Yes Safety Concerns: Feels Safe At This Time Assistive Devices: Contacts Physical Exam Neurological Examination: Mental Status: Awake and alert. Oriented to person, place, and time. Fluency naming repetition and comprehension appear grossly intact. Affect remains appropriate. CN testing: I: Deferred II:Reports no changes in visual acuity III/IV/: No evidence of gaze preference, hippus, nystagmus or roving eye movements V: Facial sensation is reportedly grossly intact to light touch bilaterally VII: Facial movements appear without evidence of asymmetry VIII: Hearing appears grossly intact to loud voice bilaterally IX/X: Palate is difficult to accurately visualize XI: Shoulder shrug appears symmetric/ grossly intact bilaterally XII: Tongue protrudes midline without evidence of biting Motor exam: Strength: BLE demonstrate drift Sensory: Sensation is reportedly grossly intact throughout Coordination: Finger to nose intact. Heel to bravo difficult to reliably assess. Reflexes: Deferred Gait: Deferred Results & Data Vital Signs (Past 12 Hours) Vital Signs Temp Pulse Pulse Resp BP BP Pulse Ox 02/26/24 07:44 37.1 C 71 18 154/70 H 97 02/26/24 07:14 64 02/26/24 02:27 36.7 C 59 L 16 136/74 98 02/26/24 01:18 55 L O2 Del Method 02/26/24 07:44 Room Air 02/26/24 07:14 02/26/24 02:27 Room Air 02/26/24 01:18 Laboratory Results Abnormal lab results 02/25/24 02/25/24 02/26/24 Range/Units 14:42 20:08 05:23 RBC 3.96 L (4.70-6.10) M/uL Hgb 11.8 L (14.0-18.0) g/dl Hct 36.3 L (42.0-52.0) % RDW Std Deviation 46.5 H (36.4-46.3) fL POC Glucose 103 H 105 H (70-99) mg/dl Diagnostic Findings Brain MRI 02/25/24 04:54 MRI OF THE BRAIN WITHOUT CONTRAST CLINICAL HISTORY: Transient ischemic attack. Right lower extremity weakness. COMPARISON STUDY: MRI of the brain January 15, 2023. Head CT performed earlier today. TECHNIQUE: Utilizing a 1.5 Jyoti magnet and dedicated coil, multiplanar, multiecho imaging of the brain was performed without IV contrast. FINDINGS: There is a small focus of restricted diffusion measuring approximately 1 cm within the posterior medial left frontal lobe. This focus may be slightly hypointense on the ADC map although is difficult to correlate given small size. Ventricular system is unremarkable. Basal cisterns are patent. There are no extra axial collections. Susceptibility artifact from the coils within the anterior communicating artery is noted. There are no extra-axial collections. White matter T2 hyperintense foci suggest small vessel disease. IMPRESSION: 1. Small focus of restricted diffusion measuring approximately 1 cm within the posterior medial left frontal lobe suggestive of an acute to subacute infarct. No mass effect. No evidence for hemorrhagic conversion. 2. 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 ACT 112: Negative or not required by law. Electronically signed by: Hossein Mathur M.D. 02/25/2024 11:23 AM Head MRA 02/25/24 09:17 MRA OF THE INTRACRANIAL CIRCULATION WITHOUT CONTRAST CLINICAL HISTORY: Transient ischemic attack. COMPARISON STUDY: CTA of the head January 16, 2023. TECHNIQUE: Utilizing a 1.5 Jyoti magnet and 3-D [id number] technique, unenhanced MRA of the intracranial circulation was obtained. FINDINGS: Susceptibility artifact from the coils within the anterior communicating artery aneurysm are noted. There is apparent trace flow within the aneurysm. There is asymmetric diminished caliber of the left anterior cerebral artery and its branches. This finding is age indeterminate. The bilateral M1 and M2 segments are patent. The left vertebral artery is dominant. Posterior circulation is intact. No additional intracranial aneurysms are identified. IMPRESSION: 1. Status post endovascular coiling of an anterior communicating artery. Apparent trace flow within the aneurysm sac. The vast majority of the aneurysm sac is occluded. No additional intracranial aneurysms. 2. Asymmetric diminished caliber of the left anterior cerebral artery and its branches. This finding is age indeterminate. ACT 112: Negative or not required by law. Electronically signed by: Hossein Mathur M.D. 02/25/2024 11:32 AM Medications Administered Home Medications Medication Instructions Recorded Confirmed Last Taken clobetasol 0.05 % topical cream 1 appln topical DAILY PRN Skin 01/12/19 02/25/24 Unknown Irritation gabapentin 600 mg tablet 600 mg PO QID 01/12/19 02/25/24 02/24/24 metoprolol tartrate 50 mg tablet 50 mg PO BID 01/12/19 02/25/24 01/13/23 03:30 rosuvastatin 20 mg tablet (Crestor) 20 mg PO QAM 01/12/19 02/25/24 01/13/23 03:30 sildenafil 100 mg tablet 100 mg PO DAILY PRN Sexual Activity 02/01/19 02/25/24 Unknown amlodipine 5 mg tablet 5 mg PO QAM 12/21/22 02/25/24 01/13/23 03:30 cyanocobalamin (vitamin B-12) 1,000 mcg PO QAM 12/21/22 02/25/24 01/12/23 09:00 1,000 mcg tablet famotidine 20 mg tablet 20 mg PO QPM 0802/25/24 01/12/23 18:00 hydrochlorothiazide 25 mg tablet 25 mg PO 6XWK 12/21/22 02/25/24 01/12/23 18:00 hydrochlorothiazide 50 mg tablet 50 mg PO WK 12/21/22 02/25/24 01/11/23 18:00 losartan 100 mg tablet 100 mg PO QAM 12/21/22 02/25/24 01/12/23 09:00 metformin 500 mg tablet 500 mg PO BID 12/21/22 02/25/24 01/12/23 18:00 oxycodone 5 mg capsule 5 mg PO Q6H PRN pain #20 caps 01/25/23 02/25/24 Unknown acetaminophen 650 mg 650 mg PO Q12H 02/25/24 02/25/24 Unknown tablet,extended release (Arthritis Pain Relief (acetaminophen) ER) baclofen 20 mg tablet 20 mg PO BID 02/25/24 02/25/24 Unknown duloxetine 60 mg capsule,delayed 60 mg PO QAM 02/25/24 02/25/24 Unknown release Active Medications Generic Name Dose Route Start Last Admin Trade Name Freq PRN Reason Stop Dose Admin Acetaminophen 650 mg 02/25/24 04:54 02/26/24 08:27 Acetaminophen 325 Mg Tab PO 03/26/24 04:53 650 mg QID PRN Administration pain/fever Clopidogrel Bisulfate 75 mg 02/26/24 09:00 02/26/24 08:38 Clopidogrel Bisulfate 75 Mg Tab PO 03/27/24 08:59 75 mg QAM KALI Administration Duloxetine HCl 60 mg 02/26/24 09:00 02/26/24 08:16 Duloxetine Hcl 60 Mg Cap PO 03/27/24 08:59 60 mg QAM KALI Administration Enoxaparin Sodium 40 mg 02/26/24 09:00 02/26/24 08:17 Enoxaparin Inj 40 Mg/0.4 Ml Syr SQ 03/27/24 08:59 40 mg QAM KALI Administration Famotidine 20 mg 02/25/24 21:00 02/25/24 21:21 Famotidine 20 Mg Tab PO 03/26/24 20:59 20 mg QPM KALI Administration Folic Acid 1 mg 02/25/24 09:00 02/26/24 08:17 Folic Acid 1 Mg Tab PO 03/26/24 08:59 1 mg QAM KALI Administration Gabapentin 600 mg 02/25/24 17:00 02/26/24 08:15 Gabapentin 600 Mg Tab PO 03/26/24 16:59 600 mg QID KALI Administration Insulin Aspart 0 units 02/25/24 07:30 02/26/24 08:22 Insulin Aspart Per Unit Charge SC 03/26/24 07:29 Not Given ACHS KALI Metoprolol Tartrate 50 mg 02/25/24 21:00 02/26/24 08:15 Metoprolol Tartrate 50 Mg Tab PO 03/26/24 20:59 50 mg BID KALI Administration Multivitamins 1 tab 02/25/24 09:00 02/26/24 08:17 Multivitamin Tab PO 03/26/24 08:59 1 tab QAM KALI Administration Rosuvastatin Calcium 20 mg 02/26/24 09:00 02/26/24 08:15 Rosuvastatin Calcium 20 Mg Tab PO 03/27/24 08:59 20 mg QAM KALI Administration Thiamine HCl 100 mg 02/26/24 09:00 02/26/24 08:16 Thiamine Hcl 100 Mg Tab PO 03/27/24 08:59 100 mg QAM KALI Administration
[2024-02-26] MEDS: ASPIRIN 81 MG ECTAB PO SCH (12:03)
--- NOTE | 2024-02-26 12:50 | Pharmacy Report ---
- Date of Service February 26, 2024 - Pharmacy CVA/TIA Medication Review Medications to Prevent Stroke handout has been added to the patients discharge packet. Antiplatelet(s) * Aspirin, clopidogrel Cholesterol * High intensity statin: rosuvastatin 20 mg daily DVT Prophylaxis * Enoxaparin SQ Therapeutic Anticoagulation * No history of Afib/Aflutter noted Type 2 Diabetes * Patient does not have T2DM
--- NOTE | 2024-02-26 16:17 | Hospitalist Progress Note ---
Date of Service February 26, 2024 Assessment & Plan (1) CVA (cerebral vascular accident): Plan: Acute CVA--POA --MRI Brain: Small focus of restricted diffusion measuring approximately 1 cm within the posterior medial left frontal lobe suggestive of an acute to subacute infarct. No mass effect. No evidence for hemorrhagic conversion. 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 --Carotid USD: No evidence for a hemodynamically significant stenosis. --Head MRA:Status post endovascular coiling of an anterior communicating artery. Apparent trace flow within the aneurysm sac. The vast majority of the aneurysm sac is occluded. No additional intracranial aneurysms. Asymmetric diminished caliber of the left anterior cerebral artery and its branches. This finding is age indeterminate. --ECHO: EF 55 to 60%. Grade 1 diastolic dysfunction. Trace MR, TR. Negative bubble study for any intra-atrial septal defect --Lipid panel showed elevated triglycerides, VLDL, LDL 32. Suspicion for aspirin failure Started on Plavix 75 mg daily Continue Crestor--increase to 40 mg daily Appreciate neurology input PT, OT, Speech Eval Continue Neuro checks, Fall precautions Allow permissive hypertension Will resume antihypertensives tomorrow Continue dual antiplatelet therapy for 3 weeks per neurology Will need ZIO monitor as outpatient Hypokalemia Replete electrolytes as needed Monitor CAD S/P stent Cerebral aneurysm/PVD s/p surgery Continue aspirin, Plavix, statin as above Hypertension Resume home medications as able Monitor BP Hyperlipidemia on statin DM II HbA1c 5.8 Continue insulin while hospitalized Monitor BGs Chronic Anemia Hb at baseline Monitor CBC Possible alcohol abuse Past tobacco abuse Continue home gabapentin Continue thiamine, folic acid Monitor for any withdrawal DVT Px: Lovenox SQ Code Status Full code Disposition Rehab as able Admission and Anticipated Discharge Date Admission Date: February 26, 2024 Subjective Patient is seen and examined at bedside No new complaints Leg weakness continues to improve Discussed with neurology today Denies any chest pain, dyspnea, nausea, vomiting, abdominal pain, change in vision Review of Systems Review of Systems: All systems reviewed & are unremarkable except as noted in Subjective Physical Exam Physical Exam: Physical Exam: Vitals signs as noted above General Appearance:Moderately built and nourished, chronic ill appearing, no apparent distress Head: normocephalic, Atraumatic Eyes: normal inspection, EOMI Neck: supple, Trachea midline Respiratory/Chest: Normal breath sounds, CTA, No accessory muscle use Cardiovascular: S1, S2, No murmur Abdomen/GI:Soft, Non tender, Bowel sounds present Extremities/Musculoskeletal:normal inspection, no edema Neurologic/Psych:AAOX3, RLE 4/5 otherwise grossly no focal neurological deficits Skin: normal color, warm Results & Data Results & Data Vital Signs (Past 12 Hours) Vital Signs Temp Pulse Pulse Resp BP BP Pulse Ox 02/26/24 13:44 67 02/26/24 11:23 36.6 C 62 18 147/60 H 94 02/26/24 10:30 02/26/24 07:44 37.1 C 71 18 154/70 H 97 02/26/24 07:14 64 O2 Del Method 02/26/24 13:44 02/26/24 11:23 Room Air 02/26/24 10:30 Room Air 02/26/24 07:44 Room Air 02/26/24 07:14 Laboratory Results Short CBC 02/26/24 Range/Units 05:23 WBC 6.09 (4.8-10.8) K/ul Hgb 11.8 L (14.0-18.0) g/dl Hct 36.3 L (42.0-52.0) % Plt Count 138 (130-400) K/uL BMP 02/26/24 05:23 Sodium 140 Potassium 3.7 D Chloride 104 Carbon Dioxide 27 BUN 16 Creatinine 0.88 Glucose 90 Calcium 9.6
--- NOTE | 2024-02-27 01:10 | Communication Note ---
Date of Service: February 27, 2024 Patient noted to be confused, angry and irritated as per RN. 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 SBP 180s. AWSS 7 AP Alcohol withdrawal History alcohol withdrawal last year during surgery. Rule out UTI as cause of confusion AWSS active protocol Librium taper in place of gabapentin Check UA
[2024-02-27] MEDS ORDERED: Ativan IV Alcohol Withdrawal--Active Protocol IV PRN (01:37)
[2024-02-27] MEDS ORDERED: LORazepam 2 MG/1 ML VIAL IV PRN (01:37)
[2024-02-27] MEDS ORDERED: chlordiazePOXIDE ALCOHOL WITHDRAWL 25MG PO STA (01:42)
[2024-02-27] MEDS: GABAPENTIN 1200MG ALCOHOL WITHDRAWAL LOAD PO STA (01:51)
[2024-02-27] MEDS: GABAPENTIN 600 MG TAB PO ONE (01:51)
[2024-02-27] MEDS: LORazepam 2 MG/1 ML VIAL IV PRN (02:20)
[2024-02-27] MEDS: chlordiazePOXIDE HCl 25 MG CAP PO SCH (02:20)
[2024-02-27] MEDS: LACTATED RINGER'S 1,000 ML IV ONE (03:46)
[2024-02-27 06:13] LABS: Hemoglobin 11.6 g/dl (14.0-18.0); Mean Corpuscular Hemoglobin 29.8 pg (25.0-34.0); Mean Corpuscular Hgb Conc 33.1 g/dL (32.0-36.0); Mean Platelet Volume 11.4 fL (9.4-12.4); Platelet Count 146 K/uL (130-400); RDW Coefficient of Variation 13.4 % (11.5-14.5); RDW Standard Deviation 44.3 fL (36.4-46.3); Red Blood Count 3.89 M/uL (4.70-6.10); White Blood Count 6.57 K/ul (4.8-10.8)
[2024-02-27 06:19] LABS: BUN Creatinine Ratio 20.5 (10-20); Calcium 9.3 mg/dl (8.6-10.3); Magnesium 1.7 mg/dl (1.7-2.4); Potassium 3.4 mmol/L (3.5-5.1)
[2024-02-27] MEDS ORDERED: GABAPENTIN 600 MG TAB PO SCH ×2 (07:45→21:45)
[2024-02-27] MEDS: POTASSIUM CHLORIDE CRTAB 20 MEQ TABCR PO ONE (08:35)
[2024-02-27] MEDS: ROSUVASTATIN CALCIUM 20 MG TAB PO SCH (08:37)
[2024-02-27] MEDS: LOSARTAN POTASSIUM 50 MG TAB PO SCH (10:10)
[2024-02-27] MEDS: amLODIPine BESYLATE 5 MG TAB PO SCH (10:10)
[2024-02-27 13:47] LABS: Appearance Urine Clear (Clear); Bacteria Urine Automated None Seen (None Seen); Bilirubin Urine Negative (Negative); Blood Urine Negative (Negative); Cast Urine Automated 0-2 /lpf (0-2); Color Urine Yellow; Epithelial Cell Urine Auto 0-2 /hpf (0-2); Glucose Urine UA Negative (Negative); Ketones Urine 1+ (Negative); Leukocyte Esterase Urine Negative (Negative); Nitrite Urine Negative (Negative); Protein Urine Trace (Negative); RBC Urine Automated 0-2 /hpf (0-2); Specific Gravity Urine 1.024 (1.000-1.030); Urobilinogen Urine Negative (Negative); WBC Urine Automated 0-5 /hpf (0-5); pH Urine 6.5 (4.5-7.5)
--- NOTE | 2024-02-27 15:33 | Hospitalist Progress Note ---
Date of Service February 27, 2024 Assessment & Plan (1) CVA (cerebral vascular accident): Plan: Acute CVA--POA --MRI Brain: Small focus of restricted diffusion measuring approximately 1 cm within the posterior medial left frontal lobe suggestive of an acute to subacute infarct. No mass effect. No evidence for hemorrhagic conversion. 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 --Carotid USD: No evidence for a hemodynamically significant stenosis. --Head MRA:Status post endovascular coiling of an anterior communicating artery. Apparent trace flow within the aneurysm sac. The vast majority of the aneurysm sac is occluded. No additional intracranial aneurysms. Asymmetric diminished caliber of the left anterior cerebral artery and its branches. This finding is age indeterminate. --ECHO: EF 55 to 60%. Grade 1 diastolic dysfunction. Trace MR, TR. Negative bubble study for any intra-atrial septal defect --Lipid panel showed elevated triglycerides, VLDL, LDL 32. Suspicion for aspirin failure (patient takes 81 mg aspirin daily at home ) Continue aspirin, Plavix as recommended by neurology Continue Crestor--increase to 40 mg daily Appreciate neurology input PT, OT, Speech Eval Continue Neuro checks, Fall precautions Continue dual antiplatelet therapy for 3 weeks per neurology Will need ZIO monitor as outpatient Needs follow-up with neurology on discharge Alcohol withdrawal Hold home gabapentin Started on Librium Continue thiamine, folic acid Counseled to quit alcohol use Monitor for withdrawal Hypokalemia Replete electrolytes as needed Monitor CAD S/P stent Cerebral aneurysm/PVD s/p surgery Continue aspirin, Plavix, statin as above Hypertension Hypertensive urgency likely secondary to alcohol withdrawal Resume home medications Clonidine as needed Monitor BP Hyperlipidemia on statin DM II HbA1c 5.8 Continue insulin while hospitalized Monitor BGs Chronic Anemia Hb at baseline Monitor CBC DVT Px: Lovenox SQ Code Status Full code Disposition Rehab as able Admission and Anticipated Discharge Date Admission Date: February 26, 2024 Subjective Patient is seen and examined at bedside Patient was confused and combative overnight per staff He was started on Librium for alcohol withdrawal overnight Oriented during my encounter this morning Leg weakness continues to improve Denies any chest pain, dyspnea, nausea, vomiting, abdominal pain, change in vision Blood pressure elevated today Review of Systems Review of Systems: All systems reviewed & are unremarkable except as noted in Subjective Physical Exam Physical Exam: Physical Exam: Vitals signs as noted above General Appearance:Moderately built and nourished, chronic ill appearing, no apparent distress Head: normocephalic, Atraumatic Eyes: normal inspection, EOMI Neck: supple, Trachea midline Respiratory/Chest: Normal breath sounds, CTA, No accessory muscle use Cardiovascular: S1, S2, No murmur Abdomen/GI:Soft, Non tender, Bowel sounds present Extremities/Musculoskeletal:normal inspection, no edema Neurologic/Psych:AAOX3, RLE 4/5 otherwise grossly no focal neurological deficits Skin: normal color, warm Results & Data Results & Data Vital Signs (Past 12 Hours) Vital Signs Temp Pulse Pulse Resp BP Pulse Ox O2 Del Method 02/27/24 13:46 71 02/27/24 11:32 36.6 C 56 L 18 190/72 H 95 Room Air 02/27/24 08:00 Room Air 02/27/24 07:44 36.5 C 68 18 166/82 H 97 Room Air 02/27/24 07:00 57 L 02/27/24 03:31 36.4 C L 60 20 154/76 H 95 Room Air Laboratory Results Short CBC 02/27/24 Range/Units 05:31 WBC 6.57 (4.8-10.8) K/ul Hgb 11.6 L (14.0-18.0) g/dl Hct 35.0 L (42.0-52.0) % Plt Count 146 (130-400) K/uL BMP 02/27/24 05:31 Sodium 140 Potassium 3.4 L Chloride 103 Carbon Dioxide 27 BUN 17 Creatinine 0.83 Glucose 88 Calcium 9.3 Urine 02/27/24 Range/Units Unknown Urine Color Yellow Urine Appearance Clear (Clear) Urine pH 6.5 (4.5-7.5) Ur Specific [place] 1.024 (1.000-1.030) Urine Protein Trace H (Negative) Urine Glucose (UA) Negative (Negative)
[2024-02-27] MEDS: LOSARTAN POTASSIUM 50 MG TAB PO ONE (15:48)
[2024-02-27] MEDS: OLANZapine 10 MG/2.1 ML SDV IM STA (16:56)
--- NOTE | 2024-02-27 17:56 | CT Scan Report ---
CT head/brain wo con CLINICAL HISTORY: 78 years-old Male with CVA, change in mental status. Acute strokelike symptoms TECHNIQUE: Multiple axial CT images of the head were obtained without contrast. A dose lowering tech nique was utilized adhering to the principles of ALARA. CT DOSE: 703.85 mGy.cm COMPARISON: Head CT 02/25/2024 FINDINGS: No acute intracranial hemorrhage, midline shift, intracranial mass, hydrocephalus, territorial ischem ia or abnormal extra-axial collection. Aneurysm coils noted within the [place]. White matter hypodensities suggestive of chronic microvascular ischemic disease. Involutional changes. Cerebral v ascular calcifications. The calvarium is intact. The paranasal sinuses, mastoid air cells, and middle ear cavities are clear . IMPRESSION: No acute intracranial abnormality. ACT 112: Negative or not required by law. The above report was generated using voice recognition software. It may contain grammatical, syntax o r spelling errors. Electronically signed by: Antonio Robbins M.D. 02/27/2024 5:54 PM
[2024-02-28] MEDS: cloNIDine HCL 0.1 MG TAB PO PRN (04:08)
[2024-02-28] MEDS: chlordiazePOXIDE HCl 25 MG CAP PO SCH (06:01)
[2024-02-28 08:30] LABS: Hematocrit (blood only) 37.9 % (42.0-52.0); Hemoglobin 12.6 g/dl (14.0-18.0); Mean Corpuscular Hemoglobin 29.9 pg (25.0-34.0); Mean Corpuscular Hgb Conc 33.2 g/dL (32.0-36.0); Mean Platelet Volume 11.7 fL (9.4-12.4); Platelet Count 143 K/uL (130-400); RDW Coefficient of Variation 13.5 % (11.5-14.5); Red Blood Count 4.21 M/uL (4.70-6.10); White Blood Count 5.35 K/ul (4.8-10.8)
[2024-02-28] MEDS: CYANOCOBALAMIN (B-12) 500 MCG TABLET PO SCH (08:44)
[2024-02-28] MEDS: LOSARTAN POTASSIUM 50 MG TAB PO SCH (08:45)
[2024-02-28 08:47] LABS: Calcium 9.7 mg/dl (8.6-10.3); Creatinine Clr Calc Pharmacy 71.4 ml/min
--- NOTE | 2024-02-28 14:35 | Hospitalist Progress Note ---
Date of Service February 28, 2024 Assessment & Plan (1) CVA (cerebral vascular accident): Plan: Acute CVA--POA --MRI Brain: Small focus of restricted diffusion measuring approximately 1 cm within the posterior medial left frontal lobe suggestive of an acute to subacute infarct. No mass effect. No evidence for hemorrhagic conversion. 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 --Carotid USD: No evidence for a hemodynamically significant stenosis. --Head MRA:Status post endovascular coiling of an anterior communicating artery. Apparent trace flow within the aneurysm sac. The vast majority of the aneurysm sac is occluded. No additional intracranial aneurysms. Asymmetric diminished caliber of the left anterior cerebral artery and its branches. This finding is age indeterminate. --ECHO: EF 55 to 60%. Grade 1 diastolic dysfunction. Trace MR, TR. Negative bubble study for any intra-atrial septal defect --Lipid panel showed elevated triglycerides, VLDL, LDL 32. Suspicion for aspirin failure (patient takes 81 mg aspirin daily at home ) Continue aspirin, Plavix as recommended by neurology Continue Crestor--increase to 40 mg daily Appreciate neurology input PT, OT, Speech Eval Continue Neuro checks, Fall precautions Continue dual antiplatelet therapy for 3 weeks per neurology Will need ZIO monitor as outpatient Needs follow-up with neurology on discharge Rehab placement as able Alcohol withdrawal Hold home gabapentin Started on Librium Continue thiamine, folic acid Counseled to quit alcohol use Monitor for withdrawal Continue current management Reorient frequently to minimize delirium Hypokalemia Replete electrolytes as needed Monitor CAD S/P stent Cerebral aneurysm/PVD s/p surgery Continue aspirin, Plavix, statin as above Hypertension Blood pressure much improved Continue current medications Clonidine as needed Monitor BP Hyperlipidemia on statin DM II HbA1c 5.8 Continue insulin while hospitalized Monitor BGs Chronic Anemia Hb at baseline Monitor CBC DVT Px: Lovenox SQ Code Status Full code Disposition Rehab as able Admission and Anticipated Discharge Date Admission Date: February 26, 2024 Subjective Patient is seen and examined at bedside States feeling tired Poor sleep overnight Oriented during my encounter Offers no new complaints No significant alcohol withdrawal symptoms this morning No new focal weakness Right leg weakness improving Denies any chest pain, dyspnea, nausea, vomiting, abdominal pain, change in vision Review of Systems Review of Systems: All systems reviewed & are unremarkable except as noted in Subjective Physical Exam Physical Exam: Physical Exam: Vitals signs as noted above General Appearance:Moderately built and nourished, chronic ill appearing, no apparent distress Head: normocephalic, Atraumatic Eyes: normal inspection, EOMI Neck: supple, Trachea midline Respiratory/Chest: Normal breath sounds, CTA, No accessory muscle use Cardiovascular: S1, S2, No murmur Abdomen/GI:Soft, Non tender, Bowel sounds present Extremities/Musculoskeletal:normal inspection, no edema Neurologic/Psych:AAOX3, RLE 4/5 otherwise grossly no focal neurological deficits Skin: normal color, warm Results & Data Results & Data Vital Signs (Past 12 Hours) Vital Signs Temp Pulse Pulse Resp BP Pulse Ox O2 Del Method 02/28/24 11:07 36.3 C L 65 18 120/70 97 Room Air 02/28/24 07:34 Room Air 02/28/24 07:24 36.4 C L 64 16 174/78 H 99 Room Air 02/28/24 07:08 54 L 02/28/24 04:07 36.2 C L 54 L 18 182/76 H 97 Room Air Laboratory Results Short CBC 02/28/24 Range/Units 08:02 WBC 5.35 (4.8-10.8) K/ul Hgb 12.6 L (14.0-18.0) g/dl Hct 37.9 L (42.0-52.0) % Plt Count 143 (130-400) K/uL BMP 02/28/24 08:02 Sodium 143 Potassium 4.0 Chloride 106 Carbon Dioxide 28 BUN 15 Creatinine 0.79 Glucose 77 Calcium 9.7
[2024-02-28] MEDS: oxyCODONE HCL IR 5 MG TAB (IMMEDIATE RELEASE) PO PRN (16:49)
[2024-02-29] MEDS ORDERED: GABAPENTIN 600 MG TAB PO SCH (01:45)
[2024-02-29 06:15] LABS: Hematocrit (blood only) 35.7 % (42.0-52.0); Hemoglobin 12.2 g/dl (14.0-18.0); Mean Corpuscular Hemoglobin 30.3 pg (25.0-34.0); Mean Corpuscular Hgb Conc 34.2 g/dL (32.0-36.0); Mean Corpuscular Volume 88.8 fL (80.0-100.0); Mean Platelet Volume 11.6 fL (9.4-12.4); Platelet Count 158 K/uL (130-400); RDW Coefficient of Variation 13.4 % (11.5-14.5); RDW Standard Deviation 43.8 fL (36.4-46.3); Red Blood Count 4.02 M/uL (4.70-6.10); White Blood Count 6.76 K/ul (4.8-10.8)
[2024-02-29 06:53] LABS: BUN Creatinine Ratio 19.8 (10-20); Calcium 9.4 mg/dl (8.6-10.3); Creatinine Clr Calc Pharmacy 65.7 ml/min
[2024-02-29 07:00] LABS: Magnesium 1.9 mg/dl (1.7-2.4); Potassium 3.4 mmol/L (3.5-5.1)
--- NOTE | 2024-02-29 08:32 | Hospitalist Progress Note ---
Date of Service February 29, 2024 Assessment & Plan (1) CVA (cerebral vascular accident): Plan: Acute CVA--POA --MRI Brain: Small focus of restricted diffusion measuring approximately 1 cm within the posterior medial left frontal lobe suggestive of an acute to subacute infarct. No mass effect. No evidence for hemorrhagic conversion. 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 --Carotid US: No evidence for a hemodynamically significant stenosis. --Head MRA:Status post endovascular coiling of an anterior communicating artery. Apparent trace flow within the aneurysm sac. The vast majority of the aneurysm sac is occluded. No additional intracranial aneurysms. Asymmetric diminished caliber of the left anterior cerebral artery and its branches. This finding is age indeterminate. --ECHO: EF 55 to 60%. Grade 1 diastolic dysfunction. Trace MR, TR. Negative bubble study for any intra-atrial septal defect --Lipid panel showed elevated triglycerides, VLDL, LDL 32. Suspicion for aspirin failure (patient takes 81 mg aspirin daily at home ) Continue aspirin, Plavix as recommended by neurology Continue Crestor--increase to 40 mg daily Appreciate neurology input PT, OT, Speech Eval Continue Neuro checks, Fall precautions Continue dual antiplatelet therapy for 3 weeks per neurology Will need ZIO monitor as outpatient Needs follow-up with neurology on discharge Rehab placement as able Alcohol withdrawal Hold home gabapentin Started on Librium Continue thiamine, folic acid Counseled to quit alcohol use Monitor for withdrawal Continue current management Reorient frequently to minimize delirium Hypokalemia Replete electrolytes as needed Monitor CAD S/P stent Cerebral aneurysm/PVD s/p surgery Continue aspirin, Plavix, statin as above Hypertension Blood pressure much improved Continue current medications Clonidine as needed Monitor BP Hyperlipidemia on statin DM II HbA1c 5.8 Continue insulin while hospitalized Monitor BGs Chronic Anemia Hb at baseline Monitor CBC DVT Px: Lovenox SQ Code Status Full code Disposition Rehab as able Admission and Anticipated Discharge Date Admission Date: February 26, 2024 Subjective Patient is seen in follow up of TIA and etoh withdrawal Sitting up in bed, somewhat drowsy but able to answer simple questions Lunch in front of him but not eating -> discussed w/ RN to help w/ feeding as needed Denies any chest pain, dyspnea, nausea, vomiting, abdominal pain Review of Systems Review of Systems: All systems reviewed & are unremarkable except as noted in Subjective Physical Exam Physical Exam: General Appearance:Moderately built and nourished, chronically ill appearing, no apparent distress Head: normocephalic, Atraumatic Eyes: normal inspection, EOMI Neck: supple Respiratory/Chest: Normal breath sounds, CTA, No accessory muscle use Cardiovascular: S1, S2, No murmur Abdomen/GI:Soft, Non tender, Bowel sounds present Extremities/Musculoskeletal:normal inspection, no edema Neurologic/Psych:Awake but drowsy, answers simple questions, moves extremities Skin: warm, dry Results & Data Results & Data Vital Signs (Past 12 Hours) Vital Signs Temp Pulse Pulse Resp BP BP Pulse Ox 02/29/24 08:15 73 02/29/24 07:38 36.9 C 67 18 156/71 H 96 02/29/24 02:59 36.5 C 68 18 170/67 H 97 O2 Del Method 02/29/24 08:15 02/29/24 07:38 Room Air 02/29/24 02:59 Room Air Laboratory Results 02/29/24 02/28/24 02/28/24 Range/Units 05:29 20:15 17:05 WBC 6.76 (4.8-10.8) K/ul RBC 4.02 L (4.70-6.10) M/uL Hgb 12.2 L (14.0-18.0) g/dl Hct 35.7 L (42.0-52.0) % MCV 88.8 (80.0-100.0) fL MCH 30.3 (25.0-34.0) pg MCHC 34.2 (32.0-36.0) g/dL RDW Std Deviation 43.8 (36.4-46.3) fL RDW Coeff of Art 13.4 (11.5-14.5) % Plt Count 158 (130-400) K/uL MPV 11.6 (9.4-12.4) fL Sodium 141 (136-145) mmol/L Potassium 3.4 L (3.5-5.1) mmol/L Chloride 106 (98-107) mmol/L Carbon Dioxide 27 (21-32) mmol/L Anion Gap 8 (3-11) BUN 17 (6-23) mg/dl Creatinine 0.86 (0.6-1.4) mg/dl Est Cr Clr Drug Dosing 65.7 ml/min eGFR 89.18 BUN/Creatinine Ratio 19.8 (10-20) Glucose 80 (70-99(Fasting)) mg/dl POC Glucose 90 90 (70-99) mg/dl Calcium 9.4 (8.6-10.3) mg/dl Magnesium 1.9 (1.7-2.4) mg/dl 02/28/24 02/28/24 Range/Units 12:25 08:02 WBC (4.8-10.8) K/ul RBC (4.70-6.10) M/uL Hgb (14.0-18.0) g/dl Hct (42.0-52.0) % MCV (80.0-100.0) fL MCH (25.0-34.0) pg MCHC (32.0-36.0) g/dL RDW Std Deviation (36.4-46.3) fL RDW Coeff of Art (11.5-14.5) % Plt Count (130-400) K/uL MPV (9.4-12.4) fL Sodium 143 (136-145) mmol/L Potassium 4.0 (3.5-5.1) mmol/L Chloride 106 (98-107) mmol/L Carbon Dioxide 28 (21-32) mmol/L Anion Gap 9 (3-11) BUN 15 (6-23) mg/dl Creatinine 0.79 (0.6-1.4) mg/dl Est Cr Clr Drug Dosing 71.4 ml/min eGFR 91.50 BUN/Creatinine Ratio 19.0 (10-20) Glucose 77 (70-99(Fasting)) mg/dl POC Glucose 119 H (70-99) mg/dl Calcium 9.7 (8.6-10.3) mg/dl Magnesium (1.7-2.4) mg/dl Medications Administered Current Inpatient Medications Acetaminophen (Acetaminophen 325 Mg Tab) 650 mg PO QID PRN PRN Reason: pain/fever Stop: 03/26/24 04:53 Last Admin: 02/27/24 20:05 Dose: 650 mg Amlodipine Besylate (Amlodipine Besylate 5 Mg Tab) 5 mg PO [facility] Stop: 03/28/24 09:14 Last Admin: 02/29/24 07:56 Dose: 5 mg Aspirin (Aspirin 81 Mg Ectab) 81 mg PO [facility] Stop: 03/27/24 11:29 Last Admin: 02/29/24 07:56 Dose: 81 mg Chlordiazepoxide HCl (Chlordiazepoxide Hcl 10 Mg Cap) 10 mg PO Q8H [facility] Stop: 02/29/24 22:01 Last Admin: 02/29/24 05:50 Dose: 10 mg Chlordiazepoxide HCl (Chlordiazepoxide Hcl 5 Mg Cap) 5 mg PO Q12H [facility] Stop: 03/01/24 21:01 Clonidine HCl (Clonidine Hcl 0.1 Mg Tab) 0.1 mg PO TID PRN PRN Reason: Hypertension SBP>180orDBP>100 Stop: 03/28/24 15:26 Last Admin: 02/28/24 04:08 Dose: 0.1 mg Clopidogrel Bisulfate (Clopidogrel Bisulfate 75 Mg Tab) 75 mg PO QAM [facility] Stop: 03/27/24 08:59 Last Admin: 02/29/24 07:56 Dose: 75 mg Cyanocobalamin (Cyanocobalamin (B-12) 500 Mcg Tablet) [facility] [place]: 03/29/24 08:59 Last Admin: 02/29/24 07:56 Dose: 1,000 mcg Dextrose (Dextrose 50% 50 Ml Syringe) 25 - 50 ml IV UD PRN; Protocol PRN Reason: Hypoglycemia Protocol Stop: 03/26/24 04:56 Duloxetine HCl (Duloxetine Hcl 60 Mg Cap) 60 mg PO QAM [facility] Stop: 03/27/24 08:59 Last Admin: 02/29/24 07:57 Dose: 60 mg Enoxaparin Sodium (Enoxaparin Inj 40 Mg/0.4 Ml Syr) [facility] [place]: 03/27/24 08:59 Last Admin: 02/29/24 07:55 Dose: Not Given Famotidine (Famotidine 20 Mg Tab) 20 mg PO QPM [facility] Stop: 03/26/24 20:59 Last Admin: 02/28/24 20:53 Dose: 20 mg Folic Acid (Folic Acid 1 Mg Tab) 1 mg PO QAM [facility] Stop: 03/26/24 08:59 Last Admin: 02/29/24 07:57 Dose: 1 mg Glucagon (Glucagon For Inj 1 Mg Vial) 1 mg SQ UD PRN; Protocol PRN Reason: Hypoglycemia Protocol Stop: 03/26/24 04:56 Glucose (Glucose 40% Gel 15 Gm Tube) 15 - 30 gm PO UD PRN; Protocol PRN Reason: Hypoglycemia Protocol Stop: 03/26/24 04:56 Glucose (Glucose 10 Tab/Tube) 4 - 8 tab PO UD PRN; Protocol PRN Reason: Hypoglycemia Treatment Stop: 03/26/24 04:56 Promethazine HCl (Phenergan) 6.25 mg in 50.25 mls @ 201 mls/hr IV Q6H PRN PRN Reason: Nausea And Vomiting Stop: 03/26/24 04:53 Insulin Aspart (Insulin Aspart Per Unit Charge) 0 units SC ACHS [facility] Stop: 03/26/24 07:29 Last Admin: 02/28/24 20:54 Dose: Not Given Lorazepam (Lorazepam 2 Mg/1 Ml Vial) 1 mg IV UD PRN; Protocol PRN Reason: EtOH Withdrawal AWSS Score 6,7 Stop: 03/28/24 01:36 Last Admin: 02/27/24 20:07 Dose: 1 mg Lorazepam (Lorazepam 2 Mg/1 Ml Vial) 2 mg IV UD PRN; Protocol PRN Reason: EtOH Withdrawal AWSS Score 8,9 Stop: 03/28/24 01:36 Lorazepam (Lorazepam 2 Mg/1 Ml Vial) 3 mg IV ONCE PRN; Protocol PRN Reason: EtOH Withdrawal AWSS Score 10+ Losartan Potassium (Losartan Potassium 50 Mg Tab) 100 mg PO QAM [facility] Stop: 03/29/24 08:59 Last Admin: 02/29/24 07:57 Dose: 100 mg Metoprolol Tartrate (Metoprolol Tartrate 50 Mg Tab) 50 mg PO BID [facility] Stop: 03/26/24 20:59 Last Admin: 02/28/24 20:53 Dose: 50 mg Miscellaneous (Carbohydrates For Hypoglycemia ) 15 - 30 gm PO UD PRN PRN Reason: Hypoglycemia Protocol Stop: 03/26/24 04:56 Multivitamins (Multivitamin Tab) 1 tab PO QAM [facility] Stop: 03/26/24 08:59 Last Admin: 02/29/24 07:57 Dose: 1 tab Oxycodone HCl (Oxycodone Hcl Ir 5 Mg Tab (Immediate Release)) 5 mg PO Q4H PRN PRN Reason: Pain Stop: 03/10/24 04:53 Last Admin: 02/28/24 16:49 Dose: 5 mg Rosuvastatin Calcium (Rosuvastatin Calcium 20 Mg Tab) 40 mg PO [facility] Stop: 03/28/24 08:59 Last Admin: 02/29/24 07:57 Dose: 40 mg Thiamine HCl (Thiamine Hcl 100 Mg Tab) 100 mg PO [facility] Stop: 03/27/24 08:59 Last Admin: 02/29/24 07:57 Dose: 100 mg
[2024-02-29] MEDS: POTASSIUM CHLORIDE CRTAB 20 MEQ TABCR PO STA (08:40)
[2024-02-29] MEDS: LORazepam 2 MG/1 ML VIAL IV PRN (08:58)
[2024-03-01 08:51] LABS: Hematocrit (blood only) 38.8 % (42.0-52.0); Hemoglobin 13.1 g/dl (14.0-18.0); Mean Corpuscular Hemoglobin 30.3 pg (25.0-34.0); Mean Corpuscular Hgb Conc 33.8 g/dL (32.0-36.0); Mean Corpuscular Volume 89.8 fL (80.0-100.0); Platelet Count 155 K/uL (130-400); RDW Coefficient of Variation 13.4 % (11.5-14.5); RDW Standard Deviation 44.5 fL (36.4-46.3); Red Blood Count 4.32 M/uL (4.70-6.10); White Blood Count 10.15 K/ul (4.8-10.8)
[2024-03-01] MEDS: chlordiazePOXIDE HCl 5 MG CAP PO SCH (09:00)
--- NOTE | 2024-03-01 09:04 | Hospitalist Progress Note ---
Date of Service March 01, 2024 Assessment & Plan (1) CVA (cerebral vascular accident): Plan: Acute CVA--POA --MRI Brain: Small focus of restricted diffusion measuring approximately 1 cm within the posterior medial left frontal lobe suggestive of an acute to subacute infarct. No mass effect. No evidence for hemorrhagic conversion. 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 --Carotid US: No evidence for a hemodynamically significant stenosis. --Head MRA:Status post endovascular coiling of an anterior communicating artery. Apparent trace flow within the aneurysm sac. The vast majority of the an eurysm sac is occluded. No additional intracranial aneurysms. Asymmetric diminished caliber of the left anterior cerebral artery and its branches. This finding is age indeterminate. --ECHO: EF 55 to 60%. Grade 1 diastolic dysfunction. Trace MR, TR. Negative bubble study for any intra-atrial septal defect --Lipid panel showed elevated triglycerides, VLDL, LDL 32. Suspicion for aspirin failure (patient takes 81 mg aspirin daily at home ) Continue aspirin, Plavix as recommended by neurology Continue Crestor--increase to 40 mg daily Appreciate neurology input PT, OT, Speech Eval Continue Neuro checks, Fall precautions Continue dual antiplatelet therapy for 3 weeks per neurology Will need ZIO monitor as outpatient Needs follow-up with neurology on discharge Rehab placement as able Alcohol withdrawal Hold home gabapentin Cont. Librium Continue thiamine, folic acid Counseled to quit alcohol use Monitor for withdrawal Continue current management Reorient frequently to minimize delirium Hypokalemia Replete electrolytes as needed Monitor CAD S/P stent Cerebral aneurysm/PVD s/p surgery Continue aspirin, Plavix, statin as above Hypertension Blood pressure much improved Continue current medications Clonidine as needed Monitor BP Hyperlipidemia on statin DM II HbA1c 5.8 Continue insulin while hospitalized Monitor BGs Chronic Anemia Hb at baseline Monitor CBC DVT Px: Lovenox SQ Code Status Full code Disposition Rehab as able Admission and Anticipated Discharge Date Admission Date: February 26, 2024 Subjective Patient is seen in follow up of TIA and etoh withdrawal Sitting up in bed, somewhat drowsy but able to answer simple questions Denies any chest pain, dyspnea, nausea, vomiting, abdominal pain Poor appetite Review of Systems Review of Systems: All systems reviewed & are unremarkable except as noted in Subjective Physical Exam Physical Exam: General Appearance:Moderately built and nourished, chronically ill appearing, no apparent distress Head: normocephalic, Atraumatic Eyes: normal inspection, EOMI Neck: supple Respiratory/Chest: Normal breath sounds, CTA, No accessory muscle use Cardiovascular: S1, S2, No murmur Abdomen/GI:Soft, Non tender, Bowel sounds present Extremities/Musculoskeletal:normal inspection, no edema Neurologic/Psych:Awake but drowsy, answers simple questions, moves extremities Skin: warm, dry Results & Data Results & Data Vital Signs (Past 12 Hours) Vital Signs Temp Pulse Pulse Resp BP BP Pulse Ox 03/01/24 07:29 36.5 C 75 18 161/74 H 95 03/01/24 02:47 57 L 16 158/72 H 93 02/29/24 22:50 36.3 C L 70 18 149/74 H 98 02/29/24 22:10 69 02/29/24 21:14 72 146/72 H O2 Del Method 03/01/24 07:29 Room Air 03/01/24 02:47 Room Air 02/29/24 22:50 Room Air 02/29/24 22:10 02/29/24 21:14 Laboratory Results 03/01/24 03/01/24 02/29/24 Range/Units 08:27 08:01 20:16 WBC 10.15 (4.8-10.8) K/ul RBC 4.32 L (4.70-6.10) M/uL Hgb 13.1 L (14.0-18.0) g/dl Hct 38.8 L (42.0-52.0) % MCV 89.8 (80.0-100.0) fL MCH 30.3 (25.0-34.0) pg MCHC 33.8 (32.0-36.0) g/dL RDW Std Deviation 44.5 (36.4-46.3) fL RDW Coeff of Art 13.4 (11.5-14.5) % Plt Count 155 (130-400) K/uL MPV 12.0 (9.4-12.4) fL Sodium 145 (136-145) mmol/L Potassium 3.9 (3.5-5.1) mmol/L Chloride 107 (98-107) mmol/L Carbon Dioxide 28 (21-32) mmol/L Anion Gap 10 (3-11) BUN 19 (6-23) mg/dl Creatinine 0.81 (0.6-1.4) mg/dl Est Cr Clr Drug Dosing 64.0 ml/min eGFR 90.81 BUN/Creatinine Ratio 23.5 H (10-20) Glucose 95 (70-99(Fasting)) mg/dl POC Glucose 85 83 (70-99) mg/dl Calcium 9.7 (8.6-10.3) mg/dl Phosphorus 3.8 (2.5-4.9) mg/dl Magnesium 1.9 (1.7-2.4) mg/dl Total Bilirubin 1.3 H (0.2-1.0) mg/dl AST 13 (13-39) U/L ALT 12 (7-52) U/L Alkaline Phosphatase 62 (34-104) U/L Total Protein 7.2 (6.0-8.3) gm/dl Albumin 4.4 (3.4-5.0) gm/dl Globulin 2.8 (2.5-4.0) gm/dl Albumin/Globulin Ratio 1.6 (0.9-2) 02/29/24 02/29/24 Range/Units 17:17 12:06 WBC (4.8-10.8) K/ul RBC (4.70-6.10) M/uL Hgb (14.0-18.0) g/dl Hct (42.0-52.0) % MCV (80.0-100.0) fL MCH (25.0-34.0) pg MCHC (32.0-36.0) g/dL RDW Std Deviation (36.4-46.3) fL RDW Coeff of Art (11.5-14.5) % Plt Count (130-400) K/uL MPV (9.4-12.4) fL Sodium (136-145) mmol/L Potassium (3.5-5.1) mmol/L Chloride (98-107) mmol/L Carbon Dioxide (21-32) mmol/L Anion Gap (3-11) BUN (6-23) mg/dl Creatinine (0.6-1.4) mg/dl Est Cr Clr Drug Dosing ml/min eGFR BUN/Creatinine Ratio (10-20) Glucose (70-99(Fasting)) mg/dl POC Glucose 105 H 85 (70-99) mg/dl Calcium (8.6-10.3) mg/dl Phosphorus (2.5-4.9) mg/dl Magnesium (1.7-2.4) mg/dl Total Bilirubin (0.2-1.0) mg/dl AST (13-39) U/L ALT (7-52) U/L Alkaline Phosphatase (34-104) U/L Total Protein (6.0-8.3) gm/dl Albumin (3.4-5.0) gm/dl Globulin (2.5-4.0) gm/dl Albumin/Globulin Ratio (0.9-2) Medications Administered Current Inpatient Medications Acetaminophen (Acetaminophen 325 Mg Tab) 650 mg PO QID PRN PRN Reason: pain/fever Stop: 03/26/24 04:53 Last Admin: 02/27/24 20:05 Dose: 650 mg Amlodipine Besylate (Amlodipine Besylate 5 Mg Tab) [address] [facility] Stop: 03/28/24 09:14 Last Admin: 03/01/24 08:55 Dose: 5 mg Aspirin (Aspirin 81 Mg Ectab) [address] [facility] Stop: 03/27/24 11:29 Last Admin: 03/01/24 08:55 Dose: 81 mg Chlordiazepoxide HCl (Chlordiazepoxide Hcl 5 Mg Cap) 5 mg PO Q12H [facility] Stop: 03/01/24 21:01 Last Admin: 03/01/24 09:00 Dose: 5 mg Clonidine HCl (Clonidine Hcl 0.1 Mg Tab) 0.1 mg PO TID PRN PRN Reason: Hypertension SBP>180orDBP>100 Stop: 03/28/24 15:26 Last Admin: 02/28/24 04:08 Dose: 0.1 mg Clopidogrel Bisulfate (Clopidogrel Bisulfate 75 Mg Tab) [address] [facility] Stop: 03/27/24 08:59 Last Admin: 03/01/24 08:56 Dose: 75 mg Cyanocobalamin (Cyanocobalamin (B-12) 500 Mcg Tablet) 1,[address] [facility] Stop: 03/29/24 08:59 Last Admin: 03/01/24 08:56 Dose: 1,000 mcg Dextrose (Dextrose 50% 50 Ml Syringe) 25 - 50 ml IV UD PRN; Protocol PRN Reason: Hypoglycemia Protocol Stop: 03/26/24 04:56 Duloxetine HCl (Duloxetine Hcl 60 Mg Cap) 60 mg PO [place] Stop: 03/27/24 08:59 Last Admin: 03/01/24 09:01 Dose: 60 mg Enoxaparin Sodium (Enoxaparin Inj 40 Mg/0.4 Ml Syr) 40 mg SQ QAM [facility] Stop: 03/27/24 08:59 Last Admin: 03/01/24 09:00 Dose: 40 mg Famotidine (Famotidine 20 Mg Tab) 20 mg PO QPM [facility] Stop: 03/26/24 20:59 Last Admin: 02/29/24 21:38 Dose: Not Given Folic Acid (Folic Acid 1 Mg Tab) 1 mg PO QAM [facility] Stop: 03/26/24 08:59 Last Admin: 03/01/24 09:01 Dose: 1 mg Glucagon (Glucagon For Inj 1 Mg Vial) 1 mg SQ UD PRN; Protocol PRN Reason: Hypoglycemia Protocol Stop: 03/26/24 04:56 Glucose (Glucose 40% Gel 15 Gm Tube) 15 - 30 gm PO UD PRN; Protocol PRN Reason: Hypoglycemia Protocol Stop: 03/26/24 04:56 Glucose (Glucose 10 Tab/Tube) 4 - 8 tab PO UD PRN; Protocol PRN Reason: Hypoglycemia Treatment Stop: 03/26/24 04:56 Promethazine HCl (Phenergan) 6.25 mg in 50.25 mls @ 201 mls/hr IV Q6H PRN PRN Reason: Nausea And Vomiting Stop: 03/26/24 04:53 Insulin Aspart (Insulin Aspart Per Unit Charge) 0 units SC [facility] Stop: 03/26/24 07:29 Last Admin: 03/01/24 07:58 Dose: Not Given Lorazepam (Lorazepam 2 Mg/1 Ml Vial) 1 mg IV UD PRN; Protocol PRN Reason: EtOH Withdrawal AWSS Score 6,7 Stop: 03/28/24 01:36 Last Admin: 02/27/24 20:07 Dose: 1 mg Lorazepam (Lorazepam 2 Mg/1 Ml Vial) 2 mg IV UD PRN; Protocol PRN Reason: EtOH Withdrawal AWSS Score 8,9 Stop: 03/28/24 01:36 Last Admin: 02/29/24 21:32 Dose: 2 mg Lorazepam (Lorazepam 2 Mg/1 Ml Vial) 3 mg IV ONCE PRN; Protocol PRN Reason: EtOH Withdrawal AWSS Score 10+ Losartan Potassium (Losartan Potassium 50 Mg Tab) 100 mg PO QAM [facility] Stop: 03/29/24 08:59 Last Admin: 03/01/24 09:01 Dose: 100 mg Metoprolol Tartrate (Metoprolol Tartrate 50 Mg Tab) 50 mg PO BID [facility] Stop: 03/26/24 20:59 Last Admin: 03/01/24 09:01 Dose: 50 mg Miscellaneous (Carbohydrates For Hypoglycemia ) 15 - 30 gm PO UD PRN PRN Reason: Hypoglycemia Protocol Stop: 03/26/24 04:56 Multivitamins (Multivitamin Tab) 1 tab PO QAM [facility] Stop: 03/26/24 08:59 Last Admin: 03/01/24 09:01 Dose: 1 tab Oxycodone HCl (Oxycodone Hcl Ir 5 Mg Tab (Immediate Release)) 5 mg PO Q4H PRN PRN Reason: Pain Stop: 03/10/24 04:53 Last Admin: 02/28/24 16:49 Dose: 5 mg Rosuvastatin Calcium (Rosuvastatin Calcium 20 Mg Tab) 40 mg [place] Stop: 03/28/24 08:59 Last Admin: 03/01/24 09:01 Dose: 40 mg Thiamine HCl (Thiamine Hcl 100 Mg Tab) 100 mg PO QAM [facility] Stop: 03/27/24 08:59 Last Admin: 03/01/24 09:01 Dose: 100 mg
[2024-03-01 09:06] LABS: Albumin Globulin Ratio 1.6 (0.9-2); Albumin Level 4.4 gm/dl (3.4-5.0); BUN Creatinine Ratio 23.5 (10-20); Bilirubin,Total 1.3 mg/dl (0.2-1.0); Calcium 9.7 mg/dl (8.6-10.3); Globulin 2.8 gm/dl (2.5-4.0); Magnesium 1.9 mg/dl (1.7-2.4); Phosphorus 3.8 mg/dl (2.5-4.9); Potassium 3.9 mmol/L (3.5-5.1); Total Protein 7.2 gm/dl (6.0-8.3)
[2024-03-01] MEDS ORDERED: GABAPENTIN 600 MG TAB PO SCH (13:45)
[2024-03-02 08:38] LABS: Hematocrit (blood only) 35.4 % (42.0-52.0); Hemoglobin 12.1 g/dl (14.0-18.0); Mean Corpuscular Hemoglobin 30.6 pg (25.0-34.0); Mean Corpuscular Hgb Conc 34.2 g/dL (32.0-36.0); Mean Corpuscular Volume 89.6 fL (80.0-100.0); Mean Platelet Volume 11.7 fL (9.4-12.4); Platelet Count 163 K/uL (130-400); RDW Coefficient of Variation 13.5 % (11.5-14.5); RDW Standard Deviation 44.4 fL (36.4-46.3); Red Blood Count 3.95 M/uL (4.70-6.10); White Blood Count 5.81 K/ul (4.8-10.8)
[2024-03-02 08:57] LABS: Albumin Globulin Ratio 1.6 (0.9-2); Albumin Level 4.1 gm/dl (3.4-5.0); BUN Creatinine Ratio 27.9 (10-20); Bilirubin,Total 1.2 mg/dl (0.2-1.0); Calcium 9.6 mg/dl (8.6-10.3); Creatinine Clr Calc Pharmacy 60.2 ml/min; Globulin 2.6 gm/dl (2.5-4.0); Magnesium 1.9 mg/dl (1.7-2.4); Phosphorus 3.6 mg/dl (2.5-4.9); Total Protein 6.7 gm/dl (6.0-8.3)
--- NOTE | 2024-03-02 14:11 | Hospitalist Progress Note ---
Date of Service March 02, 2024 Assessment & Plan (1) CVA (cerebral vascular accident): Plan: Acute CVA--POA --MRI Brain: Small focus of restricted diffusion measuring approximately 1 cm within the posterior medial left frontal lobe suggestive of an acute to subacute infarct. No mass effect. No evidence for hemorrhagic conversion. 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 --Carotid US: No evidence for a hemodynamically significant stenosis. --Head MRA:Status post endovascular coiling of an anterior communicating artery. Apparent trace flow within the aneurysm sac. The vast majority of the an eurysm sac is occluded. No additional intracranial aneurysms. Asymmetric diminished caliber of the left anterior cerebral artery and its branches. This finding is age indeterminate. --ECHO: EF 55 to 60%. Grade 1 diastolic dysfunction. Trace MR, TR. Negative bubble study for any intra-atrial septal defect --Lipid panel showed elevated triglycerides, VLDL, LDL 32. Suspicion for aspirin failure (patient takes 81 mg aspirin daily at home ) Continue aspirin, Plavix as recommended by neurology Continue Crestor--increase to 40 mg daily Appreciate neurology input PT, OT, Speech Eval Continue Neuro checks, Fall precautions Continue dual antiplatelet therapy for 3 weeks per neurology Will need ZIO monitor as outpatient Needs follow-up with neurology on discharge Rehab placement as able Alcohol withdrawal Hold home gabapentin Finished Librium taper Continue thiamine, folic acid Counseled to quit alcohol use Monitor for withdrawal Continue current management Reorient frequently to minimize delirium Hypokalemia Replete electrolytes as needed Monitor CAD S/P stent Cerebral aneurysm/PVD s/p surgery Continue aspirin, Plavix, statin as above Hypertension Blood pressure much improved Continue current medications Clonidine as needed Monitor BP Hyperlipidemia on statin DM II HbA1c 5.8 Continue insulin while hospitalized Monitor BGs Chronic Anemia Hb at baseline Monitor CBC DVT Px: Lovenox SQ Code Status Full code Disposition Rehab as able Admission and Anticipated Discharge Date Admission Date: February 26, 2024 Subjective Patient is seen in follow up of TIA and etoh withdrawal Sitting up in chair, in NAD, more awake than before. Able to answer simple questions, he knows he is in the hospital, however he thinks he is in [place]. He also thinks he only came yesterday.He ate his lunch today, discussed with RN.Continues to be very weak and requiring assistance. Denies any chest pain, dyspnea, nausea, vomiting, abdominal pain Review of Systems Review of Systems: All systems reviewed & are unremarkable except as noted in Subjective Physical Exam Physical Exam: General Appearance:Moderately built and nourished, chronically ill appearing, no apparent distress Head: normocephalic, Atraumatic Eyes: normal inspection, EOMI Neck: supple Respiratory/Chest: Normal breath sounds, CTA, No accessory muscle use Cardiovascular: S1, S2, No murmur Abdomen/GI:Soft, Non tender, Bowel sounds present Extremities/Musculoskeletal:normal inspection, no edema Neurologic/Psych: More awake today,answers simple questions - knows he is in hospital but thinks he is in [place], thinks he just came yesterday, moves extremities but is very weak Skin: warm, dry Results & Data Results & Data Vital Signs (Past 12 Hours) Vital Signs Temp Pulse Pulse Resp BP BP Pulse Ox 03/02/24 11:49 36.4 C L 72 16 103/66 98 03/02/24 08:01 36.6 C 60 18 164/74 H 97 03/02/24 07:02 67 03/02/24 03:39 36.6 C 62 18 146/77 H 97 O2 Del Method 03/02/24 11:49 Room Air 03/02/24 08:01 Room Air 03/02/24 07:02 03/02/24 03:39 Room Air Laboratory Results 03/02/24 03/02/24 03/02/24 Range/Units 12:13 12:09 08:12 WBC 5.81 (4.8-10.8) K/ul RBC 3.95 L (4.70-6.10) M/uL Hgb 12.1 L (14.0-18.0) g/dl Hct 35.4 L (42.0-52.0) % MCV 89.6 (80.0-100.0) fL MCH 30.6 (25.0-34.0) pg MCHC 34.2 (32.0-36.0) g/dL RDW Std Deviation 44.4 (36.4-46.3) fL RDW Coeff of Art 13.5 (11.5-14.5) % Plt Count 163 (130-400) K/uL MPV 11.7 (9.4-12.4) fL Sodium 144 (136-145) mmol/L Potassium 4.0 (3.5-5.1) mmol/L Chloride 106 (98-107) mmol/L Carbon Dioxide 30 (21-32) mmol/L Anion Gap 8 (3-11) BUN 24 H (6-23) mg/dl Creatinine 0.86 (0.6-1.4) mg/dl Est Cr Clr Drug Dosing 60.2 ml/min eGFR 89.18 BUN/Creatinine Ratio 27.9 H (10-20) Glucose 93 (70-99(Fasting)) mg/dl POC Glucose 125 H 130 H (70-99) mg/dl Calcium 9.6 (8.6-10.3) mg/dl Phosphorus 3.6 (2.5-4.9) mg/dl Magnesium 1.9 (1.7-2.4) mg/dl Total Bilirubin 1.2 H (0.2-1.0) mg/dl AST 11 L (13-39) U/L ALT 11 (7-52) U/L Alkaline Phosphatase 56 (34-104) U/L Total Protein 6.7 (6.0-8.3) gm/dl Albumin 4.1 (3.4-5.0) gm/dl Globulin 2.6 (2.5-4.0) gm/dl Albumin/Globulin Ratio 1.6 (0.9-2) 03/02/24 03/01/24 03/01/24 Range/Units 08:10 20:16 16:55 WBC (4.8-10.8) K/ul RBC (4.70-6.10) M/uL Hgb (14.0-18.0) g/dl Hct (42.0-52.0) % MCV (80.0-100.0) fL MCH (25.0-34.0) pg MCHC (32.0-36.0) g/dL RDW Std Deviation (36.4-46.3) fL RDW Coeff of Art (11.5-14.5) % Plt Count (130-400) K/uL MPV (9.4-12.4) fL Sodium (136-145) mmol/L Potassium (3.5-5.1) mmol/L Chloride (98-107) mmol/L Carbon Dioxide (21-32) mmol/L Anion Gap (3-11) BUN (6-23) mg/dl Creatinine (0.6-1.4) mg/dl Est Cr Clr Drug Dosing ml/min eGFR BUN/Creatinine Ratio (10-20) Glucose (70-99(Fasting)) mg/dl POC Glucose 83 121 H 91 (70-99) mg/dl Calcium (8.6-10.3) mg/dl Phosphorus (2.5-4.9) mg/dl Magnesium (1.7-2.4) mg/dl Total Bilirubin (0.2-1.0) mg/dl AST (13-39) U/L ALT (7-52) U/L Alkaline Phosphatase (34-104) U/L Total Protein (6.0-8.3) gm/dl Albumin (3.4-5.0) gm/dl Globulin (2.5-4.0) gm/dl Albumin/Globulin Ratio (0.9-2) Medications Administered Current Inpatient Medications Acetaminophen (Acetaminophen 325 Mg Tab) 650 mg PO QID PRN PRN Reason: pain/fever Stop: 03/26/24 04:53 Last Admin: 03/02/24 08:50 Dose: 650 mg Amlodipine Besylate (Amlodipine Besylate 5 Mg Tab) 5 mg PO [facility] Stop: 03/28/24 09:14 Last Admin: 03/02/24 08:47 Dose: 5 mg Aspirin (Aspirin 81 Mg Ectab) 81 mg PO [facility] Stop: 03/27/24 11:29 Last Admin: 03/02/24 08:46 Dose: 81 mg Clonidine HCl (Clonidine Hcl 0.1 Mg Tab) 0.1 mg PO TID PRN PRN Reason: Hypertension SBP>180orDBP>100 Stop: 03/28/24 15:26 Last Admin: 02/28/24 04:08 Dose: 0.1 mg Clopidogrel Bisulfate (Clopidogrel Bisulfate 75 Mg Tab) 75 mg PO [facility] Stop: 03/27/24 08:59 Last Admin: 03/02/24 08:45 Dose: 75 mg Cyanocobalamin (Cyanocobalamin (B-12) 500 Mcg Tablet) 1,000 mcg PO [facility] Stop: 03/29/24 08:59 Last Admin: 03/02/24 08:46 Dose: 1,000 mcg Dextrose (Dextrose 50% 50 Ml Syringe) 25 - 50 ml IV UD PRN; Protocol PRN Reason: Hypoglycemia Protocol Stop: 03/26/24 04:56 Duloxetine HCl (Duloxetine Hcl 60 Mg Cap) 60 mg PO QAM [facility] Stop: 03/27/24 08:59 Last Admin: 03/02/24 08:46 Dose: 60 mg Enoxaparin Sodium (Enoxaparin Inj 40 Mg/0.4 Ml Syr) 40 mg SQ QAM [facility] Stop: 03/27/24 08:59 Last Admin: 03/02/24 08:47 Dose: 40 mg Famotidine (Famotidine 20 Mg Tab) 20 mg PO QPM [facility] Stop: 03/26/24 20:59 Last Admin: 03/01/24 20:39 Dose: 20 mg Folic Acid (Folic Acid 1 Mg Tab) 1 mg PO QAM [facility] Stop: 03/26/24 08:59 Last Admin: 03/02/24 08:46 Dose: 1 mg Glucagon (Glucagon For Inj 1 Mg Vial) 1 mg SQ UD PRN; Protocol PRN Reason: Hypoglycemia Protocol Stop: 03/26/24 04:56 Glucose (Glucose 40% Gel 15 Gm Tube) 15 - 30 gm PO UD PRN; Protocol PRN Reason: Hypoglycemia Protocol Stop: 03/26/24 04:56 Glucose (Glucose 10 Tab/Tube) 4 - 8 tab PO UD PRN; Protocol PRN Reason: Hypoglycemia Treatment Stop: 03/26/24 04:56 Promethazine HCl (Phenergan) 6.25 mg in 50.25 mls @ 201 mls/hr IV Q6H PRN PRN Reason: Nausea And Vomiting Stop: 03/26/24 04:53 Insulin Aspart (Insulin Aspart Per Unit Charge) 0 units SC [facility] Stop: 03/26/24 07:29 Last Admin: 03/02/24 12:41 Dose: Not Given Lorazepam (Lorazepam 2 Mg/1 Ml Vial) 1 mg IV UD PRN; Protocol PRN Reason: EtOH Withdrawal AWSS Score 6,7 Stop: 03/28/24 01:36 Last Admin: 02/27/24 20:07 Dose: 1 mg Lorazepam (Lorazepam 2 Mg/1 Ml Vial) 2 mg IV UD PRN; Protocol PRN Reason: EtOH Withdrawal AWSS Score 8,9 Stop: 03/28/24 01:36 Last Admin: 02/29/24 21:32 Dose: 2 mg Lorazepam (Lorazepam 2 Mg/1 Ml Vial) 3 mg IV ONCE PRN; Protocol PRN Reason: EtOH Withdrawal AWSS Score 10+ Losartan Potassium ([facility] Potassium 50 Mg Tab) [facility] [place]: 03/29/24 08:59 Last Admin: 03/02/24 08:45 Dose: 100 mg Metoprolol Tartrate (Metoprolol Tartrate 50 Mg Tab) 50 mg PO BID [facility] Stop: 03/26/24 20:59 Last Admin: 03/02/24 08:45 Dose: 50 mg Miscellaneous (Carbohydrates For Hypoglycemia ) 15 - 30 gm PO UD PRN PRN Reason: Hypoglycemia Protocol Stop: 03/26/24 04:56 Multivitamins (Multivitamin Tab) [facility]: 03/26/24 08:59 Last Admin: 03/02/24 08:45 Dose: 1 tab Oxycodone HCl (Oxycodone Hcl Ir 5 Mg Tab (Immediate Release)) 5 mg PO Q4H PRN PRN Reason: Pain Stop: 03/10/24 04:53 Last Admin: 02/28/24 16:49 Dose: 5 mg Rosuvastatin Calcium (Rosuvastatin Calcium 20 Mg Tab) [facility] [place]: 03/28/24 08:59 Last Admin: 03/02/24 08:46 Dose: 40 mg Thiamine HCl (Thiamine Hcl 100 Mg Tab) 100 mg PO QAM [facility] Stop: 03/27/24 08:59 Last Admin: 03/02/24 08:46 Dose: 100 mg
[2024-03-03 07:53] LABS: Hematocrit (blood only) 36.9 % (42.0-52.0); Hemoglobin 12.2 g/dl (14.0-18.0); Mean Corpuscular Hgb Conc 33.1 g/dL (32.0-36.0); Mean Corpuscular Volume 90.7 fL (80.0-100.0); Platelet Count 158 K/uL (130-400); RDW Coefficient of Variation 13.5 % (11.5-14.5); RDW Standard Deviation 44.6 fL (36.4-46.3); Red Blood Count 4.07 M/uL (4.70-6.10); White Blood Count 4.61 K/ul (4.8-10.8)
[2024-03-03 08:14] LABS: BUN Creatinine Ratio 33.3 (10-20); Calcium 9.6 mg/dl (8.6-10.3); Creatinine Clr Calc Pharmacy 61.7 ml/min; Magnesium 1.9 mg/dl (1.7-2.4); Phosphorus 3.4 mg/dl (2.5-4.9); Potassium 3.9 mmol/L (3.5-5.1)
--- NOTE | 2024-03-03 08:33 | Hospitalist Progress Note ---
Date of Service March 03, 2024 Assessment & Plan (1) CVA (cerebral vascular accident): Plan: Acute CVA--POA --MRI Brain: Small focus of restricted diffusion measuring approximately 1 cm within the posterior medial left frontal lobe suggestive of an acute to subacute infarct. No mass effect. No evidence for hemorrhagic conversion. 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 --Carotid US: No evidence for a hemodynamically significant stenosis. --Head MRA:Status post endovascular coiling of an anterior communicating artery. Apparent trace flow within the aneurysm sac. The vast majority of the an eurysm sac is occluded. No additional intracranial aneurysms. Asymmetric diminished caliber of the left anterior cerebral artery and its branches. This finding is age indeterminate. --ECHO: EF 55 to 60%. Grade 1 diastolic dysfunction. Trace MR, TR. Negative bubble study for any intra-atrial septal defect --Lipid panel showed elevated triglycerides, VLDL, LDL 32. Suspicion for aspirin failure (patient takes 81 mg aspirin daily at home ) Continue aspirin, Plavix as recommended by neurology Continue Crestor--increase to 40 mg daily Appreciate neurology input PT, OT, Speech Eval Continue Neuro checks, Fall precautions Continue dual antiplatelet therapy for 3 weeks per neurology Will need ZIO monitor as outpatient Needs follow-up with neurology on discharge Rehab placement as able Alcohol withdrawal Hold home gabapentin Finished Librium taper Continue thiamine, folic acid Counseled to quit alcohol use Monitor for withdrawal Continue current management Reorient frequently to minimize delirium Hypokalemia Replete electrolytes as needed Monitor CAD S/P stent Cerebral aneurysm/PVD s/p surgery Continue aspirin, Plavix, statin as above Hypertension Blood pressure much improved Continue current medications Clonidine as needed Monitor BP Hyperlipidemia on statin DM II HbA1c 5.8 Continue insulin while hospitalized Monitor BGs Chronic Anemia Hb at baseline Monitor CBC DVT Px: Lovenox SQ Code Status Full code Disposition [facility]hab / [email or web address] Admission and Anticipated Discharge Date Admission Date: February 26, 2024 Subjective Patient is seen in follow up of TIA and etoh withdrawal Sitting up in bed, in NAD, more awake than before, conversant. Continues to be very weak and requiring assistance. Denies any chest pain, dyspnea, nausea, vomiting, abdominal pain Review of Systems Review of Systems: All systems reviewed & are unremarkable except as noted in Subjective Physical Exam Physical Exam: General Appearance:Moderately built and nourished, chronically ill appearing, no apparent distress Head: normocephalic, Atraumatic Eyes: normal inspection, EOMI Neck: supple Respiratory/Chest: Normal breath sounds, CTA, No accessory muscle use Cardiovascular: S1, S2, No murmur Abdomen/GI:Soft, Non tender, Bowel sounds present Extremities/Musculoskeletal:normal inspection, no edema Neurologic/Psych: More awake today,conversant, moves extremities but is very weak Skin: warm, dry Results & Data Results & Data Vital Signs (Past 12 Hours) Vital Signs Temp Pulse Pulse Resp BP BP Pulse Ox 03/03/24 07:53 36.3 C L 57 L 18 159/72 H 98 03/03/24 07:02 51 L 03/03/24 04:39 36.3 C L 52 L 20 149/77 H 97 03/03/24 00:59 36.5 C 57 L 20 125/71 94 03/02/24 22:02 63 O2 Del Method 03/03/24 07:53 Room Air 03/03/24 07:02 03/03/24 04:39 Room Air 03/03/24 00:59 Room Air 03/02/24 22:02 Laboratory Results 03/03/24 03/03/24 03/02/24 Range/Units 08:17 06:58 20:36 WBC 4.61 L (4.8-10.8) K/ul RBC 4.07 L (4.70-6.10) M/uL Hgb 12.2 L (14.0-18.0) g/dl Hct 36.9 L (42.0-52.0) % MCV 90.7 (80.0-100.0) fL MCH 30.0 (25.0-34.0) pg MCHC 33.1 (32.0-36.0) g/dL RDW Std Deviation 44.6 (36.4-46.3) fL RDW Coeff of Art 13.5 (11.5-14.5) % Plt Count 158 (130-400) K/uL MPV 12.0 (9.4-12.4) fL Sodium 144 (136-145) mmol/L Potassium 3.9 (3.5-5.1) mmol/L Chloride 105 (98-107) mmol/L Carbon Dioxide 32 (21-32) mmol/L Anion Gap 7 (3-11) BUN 28 H (6-23) mg/dl Creatinine 0.84 (0.6-1.4) mg/dl Est Cr Clr Drug Dosing 61.7 ml/min eGFR 89.82 BUN/Creatinine Ratio 33.3 H (10-20) Glucose 97 (70-99(Fasting)) mg/dl POC Glucose 93 120 H (70-99) mg/dl Calcium 9.6 (8.6-10.3) mg/dl Phosphorus 3.4 (2.5-4.9) mg/dl Magnesium 1.9 (1.7-2.4) mg/dl Total Bilirubin (0.2-1.0) mg/dl AST (13-39) U/L ALT (7-52) U/L Alkaline Phosphatase (34-104) U/L Total Protein (6.0-8.3) gm/dl Albumin (3.4-5.0) gm/dl Globulin (2.5-4.0) gm/dl Albumin/Globulin Ratio (0.9-2) 03/02/24 03/02/24 03/02/24 Range/Units 17:23 12:13 12:09 WBC (4.8-10.8) K/ul RBC (4.70-6.10) M/uL Hgb (14.0-18.0) g/dl Hct (42.0-52.0) % MCV (80.0-100.0) fL MCH (25.0-34.0) pg MCHC (32.0-36.0) g/dL RDW Std Deviation (36.4-46.3) fL RDW Coeff of Art (11.5-14.5) % Plt Count (130-400) K/uL MPV (9.4-12.4) fL Sodium (136-145) mmol/L Potassium (3.5-5.1) mmol/L Chloride (98-107) mmol/L Carbon Dioxide (21-32) mmol/L Anion Gap (3-11) BUN (6-23) mg/dl Creatinine (0.6-1.4) mg/dl Est Cr Clr Drug Dosing ml/min eGFR BUN/Creatinine Ratio (10-20) Glucose (70-99(Fasting)) mg/dl POC Glucose 91 125 H 130 H (70-99) mg/dl Calcium (8.6-10.3) mg/dl Phosphorus (2.5-4.9) mg/dl Magnesium (1.7-2.4) mg/dl Total Bilirubin (0.2-1.0) mg/dl AST (13-39) U/L ALT (7-52) U/L Alkaline Phosphatase (34-104) U/L Total Protein (6.0-8.3) gm/dl Albumin (3.4-5.0) gm/dl Globulin (2.5-4.0) gm/dl Albumin/Globulin Ratio (0.9-2) 03/02/24 Range/Units 08:12 WBC 5.81 (4.8-10.8) K/ul RBC 3.95 L (4.70-6.10) M/uL Hgb 12.1 L (14.0-18.0) g/dl Hct 35.4 L (42.0-52.0) % MCV 89.6 (80.0-100.0) fL MCH 30.6 (25.0-34.0) pg MCHC 34.2 (32.0-36.0) g/dL RDW Std Deviation 44.4 (36.4-46.3) fL RDW Coeff of Art 13.5 (11.5-14.5) % Plt Count 163 (130-400) K/uL MPV 11.7 (9.4-12.4) fL Sodium 144 (136-145) mmol/L Potassium 4.0 (3.5-5.1) mmol/L Chloride 106 (98-107) mmol/L Carbon Dioxide 30 (21-32) mmol/L Anion Gap 8 (3-11) BUN 24 H (6-23) mg/dl Creatinine 0.86 (0.6-1.4) mg/dl Est Cr Clr Drug Dosing 60.2 ml/min eGFR 89.18 BUN/Creatinine Ratio 27.9 H (10-20) Glucose 93 (70-99(Fasting)) mg/dl POC Glucose (70-99) mg/dl Calcium 9.6 (8.6-10.3) mg/dl Phosphorus 3.6 (2.5-4.9) mg/dl Magnesium 1.9 (1.7-2.4) mg/dl Total Bilirubin 1.2 H (0.2-1.0) mg/dl AST 11 L (13-39) U/L ALT 11 (7-52) U/L Alkaline Phosphatase 56 (34-104) U/L Total Protein 6.7 (6.0-8.3) gm/dl Albumin 4.1 (3.4-5.0) gm/dl Globulin 2.6 (2.5-4.0) gm/dl Albumin/Globulin Ratio 1.6 (0.9-2) Medications Administered Current Inpatient Medications Acetaminophen (Acetaminophen 325 Mg Tab) 650 mg PO QID PRN PRN Reason: pain/fever Stop: 03/26/24 04:53 Last Admin: 03/02/24 20:11 Dose: 650 mg Amlodipine Besylate (Amlodipine Besylate 5 Mg Tab) 5 mg PO [facility] Stop: 03/28/24 09:14 Last Admin: 03/02/24 08:47 Dose: 5 mg Aspirin (Aspirin 81 Mg Ectab) 81 mg PO [facility] Stop: 03/27/24 11:29 Last Admin: 03/02/24 08:46 Dose: 81 mg Clonidine HCl (Clonidine Hcl 0.1 Mg Tab) 0.1 mg PO TID PRN PRN Reason: Hypertension SBP>180orDBP>100 Stop: 03/28/24 15:26 Last Admin: 02/28/24 04:08 Dose: 0.1 mg Clopidogrel Bisulfate (Clopidogrel Bisulfate 75 Mg Tab) 75 mg PO [facility] Stop: 03/27/24 08:59 Last Admin: 03/02/24 08:45 Dose: 75 mg Cyanocobalamin (Cyanocobalamin (B-12) 500 Mcg Tablet) 1,000 mcg PO [facility] Stop: 03/29/24 08:59 Last Admin: 03/02/24 08:46 Dose: 1,000 mcg Dextrose (Dextrose 50% 50 Ml Syringe) 25 - 50 ml IV UD PRN; Protocol PRN Reason: Hypoglycemia Protocol Stop: 03/26/24 04:56 Duloxetine HCl (Duloxetine Hcl 60 Mg Cap) 60 mg PO [facility] Stop: 03/27/24 08:59 Last Admin: 03/02/24 08:46 Dose: 60 mg Enoxaparin Sodium (Enoxaparin Inj 40 Mg/0.4 Ml Syr) 40 mg SQ [facility] Stop: 03/27/24 08:59 Last Admin: 03/02/24 08:47 Dose: 40 mg Famotidine (Famotidine 20 Mg Tab) 20 mg PO QPM [facility] Stop: 03/26/24 20:59 Last Admin: 03/02/24 20:11 Dose: 20 mg Folic Acid (Folic Acid 1 Mg Tab) 1 mg PO QAM [facility] Stop: 03/26/24 08:59 Last Admin: 03/02/24 08:46 Dose: 1 mg Glucagon (Glucagon For Inj 1 Mg Vial) 1 mg SQ UD PRN; Protocol PRN Reason: Hypoglycemia Protocol Stop: 03/26/24 04:56 Glucose (Glucose 40% Gel 15 Gm Tube) 15 - 30 gm PO UD PRN; Protocol PRN Reason: Hypoglycemia Protocol Stop: 03/26/24 04:56 Glucose (Glucose 10 Tab/Tube) 4 - 8 tab PO UD PRN; Protocol PRN Reason: Hypoglycemia Treatment Stop: 03/26/24 04:56 Promethazine HCl (Phenergan) 6.25 mg in 50.25 mls @ 201 mls/hr IV Q6H PRN PRN Reason: Nausea And Vomiting Stop: 03/26/24 04:53 Insulin Aspart (Insulin Aspart Per Unit Charge) 0 units SC ACHS [facility] Stop: 03/26/24 07:29 Last Admin: 03/03/24 08:25 Dose: Not Given Lorazepam (Lorazepam 2 Mg/1 Ml Vial) 1 mg IV UD PRN; Protocol PRN Reason: EtOH Withdrawal AWSS Score 6,7 Stop: 03/28/24 01:36 Last Admin: 02/27/24 20:07 Dose: 1 mg Lorazepam (Lorazepam 2 Mg/1 Ml Vial) 2 mg IV UD PRN; Protocol PRN Reason: EtOH Withdrawal AWSS Score 8,9 Stop: 03/28/24 01:36 Last Admin: 02/29/24 21:32 Dose: 2 mg Lorazepam (Lorazepam 2 Mg/1 Ml Vial) 3 mg IV ONCE PRN; Protocol PRN Reason: EtOH Withdrawal AWSS Score 10+ Losartan Potassium (Losartan Potassium 50 Mg Tab) 100 mg PO QAM [facility] Stop: 03/29/24 08:59 Last Admin: 03/02/24 08:45 Dose: 100 mg Metoprolol Tartrate (Metoprolol Tartrate 50 Mg Tab) 50 mg PO BID [facility] Stop: 03/26/24 20:59 Last Admin: 03/02/24 20:12 Dose: 50 mg Metoprolol Tartrate (Metoprolol Tartrate 25 Mg Tab) 25 mg PO BID [facility] Stop: 04/02/24 08:59 Miscellaneous (Carbohydrates For Hypoglycemia ) 15 - 30 gm PO UD PRN PRN Reason: Hypoglycemia Protocol Stop: 03/26/24 04:56 [facility]ivitamins ([facility]ivitamin Tab) [facility] [place] Stop: 03/26/24 08:59 Last Admin: 03/02/24 08:45 Dose: 1 tab Oxycodone HCl (Oxycodone Hcl Ir 5 Mg Tab (Immediate Release)) 5 mg PO Q4H PRN PRN Reason: Pain Stop: 03/10/24 04:53 Last Admin: 02/28/24 16:49 Dose: 5 mg Rosuvastatin Calcium (Rosuvastatin Calcium 20 Mg Tab) 40 mg PO [facility] Stop: 03/28/24 08:59 Last Admin: 03/02/24 08:46 Dose: 40 mg Thiamine HCl (Thiamine Hcl 100 Mg Tab) [facility] [place] Stop: 03/27/24 08:59 Last Admin: 03/02/24 08:46 Dose: 100 mg
[2024-03-03] MEDS: METOPROLOL TARTRATE 25 MG TAB PO SCH (08:52)
[2024-03-04 03:55] VITALS: O2SAT 98
[2024-03-04 07:06] LABS: Hematocrit (blood only) 35.8 % (42.0-52.0); Hemoglobin 11.7 g/dl (14.0-18.0); Mean Corpuscular Hemoglobin 29.5 pg (25.0-34.0); Mean Corpuscular Hgb Conc 32.7 g/dL (32.0-36.0); Mean Corpuscular Volume 90.4 fL (80.0-100.0); Mean Platelet Volume 12.2 fL (9.4-12.4); Platelet Count 169 K/uL (130-400); RDW Coefficient of Variation 13.3 % (11.5-14.5); RDW Standard Deviation 44.6 fL (36.4-46.3); Red Blood Count 3.96 M/uL (4.70-6.10); White Blood Count 4.57 K/ul (4.8-10.8)
[2024-03-04 07:25] LABS: BUN Creatinine Ratio 33.7 (10-20); Calcium 9.4 mg/dl (8.6-10.3); Creatinine Clr Calc Pharmacy 67.8 ml/min; Magnesium 1.9 mg/dl (1.7-2.4); Phosphorus 3.5 mg/dl (2.5-4.9); Potassium 3.4 mmol/L (3.5-5.1)
[2024-03-04 07:55] VITALS: PULSE 78; RESP 18; TEMP 97.3
--- NOTE | 2024-03-04 08:13 | Discharge Summary ---
Date of Service March 04, 2024 Admission HPI Per Admitting Provider History obtained from patient and records. Medical history significant for CAD status post stent, PVD status post surgery, cerebral aneurysm, hypertension, hyperlipidemia, DM2 on oral medications, chronic anemia (baseline hemoglobin of 12), mood disorder, chronic back pain status post spinal cord stimulator,, past tobacco abuse. Last confinement January 2023 under Orthopedics service for elective left total knee arthroplasty. Prolonged hospital stay secondary to alcohol withdrawal delirium. Patient was watching television last night when he noted transient right lower leg weakness. Denies unusual back pain. No headache, no chest pain, no SOB. Compliant with home aspirin Rx. RLE weakness currently resolved at the ER. 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 Admission Exam Per Admitting Provider GENERAL: Comfortable, pleasant, no respiratory distress SKIN: Pallor, warm HEENT: Pale palpebral conjunctivae, no ptosis, dry buccal mucosa NECK : Supple, no tenderness CHEST : CTA, no tenderness HEART : RRR, no obvious murmurs ABDOMEN: no distention, nontender EXTREMITIES : No LE swelling/tenderness, no other conspicuous deformities noted NEUROLOGIC : Coherent, no facial asymmetry, MMTS 4/5, gait and stance not assessed Principal Diagnosis CVA Alcohol withdrawal Discharge Exam General Appearance:Moderately built and nourished, chronically ill appearing, no apparent distress Head: normocephalic, Atraumatic Eyes: normal inspection, EOMI Neck: supple Respiratory/Chest: Normal breath sounds, CTA, No accessory muscle use Cardiovascular: S1, S2, No murmur Abdomen/GI:Soft, Non tender, Bowel sounds present Extremities/Musculoskeletal:normal inspection, no edema Neurologic/Psych: More awake today,conversant, moves extremities but is very weak Skin: warm, dry Discharge Data Allergies Allergy/AdvReac Type Severity Reaction Status Date / Time lisinopril AdvReac Mild Cough Verified 02/25/24 02:25 Consultations 02/25/24 03:52 ED Decision to Admit Stat 02/25/24 12:00 Consult Neurology Routine Ordered Studies 02/25/24 01:20 CT head/brain wo con Stat FINDINGS: Brain: 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 Associated artifact somewhat limits evaluation. Mild volume loss with prominent ventricles and sulci. Mild periventricular white matter hypoattenuation likely reflects chronic small vessel disease. No hemorrhage. Ventricles: See above. Bones/joints: Unremarkable. No acute fracture. Soft tissues: Unremarkable. Sinuses: Mild paranasal sinus mucosal thickening. No sinus fluid levels. Mastoid air cells: Unremarkable as visualized. No mastoid effusion. IMPRESSION: 1. No evidence of acute intracranial abnormality. 2. 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 02/25/24 04:54 Carotid duplex [US carotid doppler BI] Routine IMPRESSION: No evidence for a hemodynamically significant stenosis. MR brain wo con Routine FINDINGS: There is a small focus of restricted diffusion measuring approximately 1 cm within the posterior medial left frontal lobe. This focus may be slightly hypointense on the ADC map although is difficult to correlate given small size. Ventricular system is unremarkable. Basal cisterns are patent. There are no extra axial collections. Susceptibility artifact from the coils within the anterior communicating artery is noted. There are no extra-axial collections. White matter T2 hyperintense foci suggest small vessel disease. IMPRESSION: 1. Small focus of restricted diffusion measuring approximately 1 cm within the posterior medial left frontal lobe suggestive of an acute to subacute infarct. No mass effect. No evidence for hemorrhagic conversion. 2. 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 02/25/24 09:17 MR angio head wo con Routine FINDINGS: Susceptibility artifact from the coils within the anterior communicating artery aneurysm are noted. There is apparent trace flow within the aneurysm. There is asymmetric diminished caliber of the left anterior cerebral artery and its branches. This finding is age indeterminate. The bilateral M1 and M2 segments are patent. The left vertebral artery is dominant. Posterior circulation is intact. No additional intracranial aneurysms are identified. IMPRESSION: 1. Status post endovascular coiling of an anterior communicating artery. Apparent trace flow within the aneurysm sac. The vast majority of the aneurysm sac is occluded. No additional intracranial aneurysms. 2. Asymmetric diminished caliber of the left anterior cerebral artery and its branches. This finding is age indeterminate. 02/27/24 16:52 CT head/brain wo con Urgent FINDINGS: No acute intracranial hemorrhage, midline shift, intracranial mass, hydrocephalus, territorial ischemia or abnormal extra-axial collection. Aneurysm coils noted within the [place]. White matter hypodensities suggestive of chronic microvascular ischemic disease. Involutional changes. Cerebral vascular calcifications. The calvarium is intact. The paranasal sinuses, mastoid air cells, and middle ear cavities are clear. IMPRESSION: No acute intracranial abnormality. Hospital Course (1) CVA (cerebral vascular accident): Acute CVA--POA --MRI Brain: Small focus of restricted diffusion measuring approximately 1 cm within the posterior medial left frontal lobe suggestive of an acute to subacute infarct. No mass effect. No evidence for hemorrhagic conversion. 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 --Carotid US: No evidence for a hemodynamically significant stenosis. --Head MRA:Status post endovascular coiling of an anterior communicating artery. Apparent trace flow within the aneurysm sac. The vast majority of the aneurysm sac is occluded. No additional intracranial aneurysms. Asymmetric diminished caliber of the left anterior cerebral artery and its branches. This finding is age indeterminate. --ECHO: EF 55 to 60%. Grade 1 diastolic dysfunction. Trace MR, TR. Negative bubble study for any intra-atrial septal defect --Lipid panel showed elevated triglycerides, VLDL, LDL 32. Suspicion for aspirin failure (patient takes 81 mg aspirin daily at home ) Continue aspirin, Plavix as recommended by neurology Continue Crestor--increase to 40 mg daily Appreciate neurology input PT, OT, Speech Eval Continue Neuro checks, Fall precautions Continue dual antiplatelet therapy for 3 weeks per neurology Will need ZIO monitor as outpatient Needs follow-up with neurology on discharge Rehab placement as able Alcohol withdrawal Hold home gabapentin Finished Librium taper Continue thiamine, folic acid Counseled to quit alcohol use Monitor for withdrawal Continue current management Reorient frequently to minimize delirium Hypokalemia Replete electrolytes as needed Monitor CAD S/P stent Cerebral aneurysm/PVD s/p surgery Continue aspirin, Plavix, statin as above Hypertension Blood pressure much improved Continue current medications Clonidine as needed Monitor BP Hyperlipidemia on statin DM II HbA1c 5.8 Continue insulin while hospitalized Monitor BGs Chronic Anemia Hb at baseline Monitor CBC DVT Px: Lovenox SQ Code Status Full code Disposition [facility] Total Time Total Time Spent Total Time Spent (In Minutes): 40 Discharge Plan Discharge Items Patient Disposition: Transfer Inpatient Rehab Fac Reason For Visit: TIA Discharge Diagnosis: CVA Alcohol withdrawal Activity: Per Instructions section Non-emergency contact: Primary Care Provider and Neurologist Call non-emergency contact if: you have any medication questions and your symptoms worsen Follow-up/Referrals: Yesi Clifford MD [Primary Care Provider] - Marilia Leigh PA-C [Physician Patient Service Technician Pst] - (Date & Time 03/27/2024 12:30 PM Provider Marilia Leigh PA-C Department Neurology [facility] ) Diet: Heart Healthy Addtl Attending Provider Instructions: Follow up with primary care doctor and neurologist. Take aspirin and plavix for 3 weeks then discuss with your physicians what medications you should stay on. Your rosuvastatin (crestor) was increased to 40 mg daily. Take thiamine, folic acid, and multivitamin. Your metoprolol was reduced in dose to 25 mg twice a day. Do not take hydrochlorothiazide until you discuss this with your primary care doctor. Continue to monitor your blood pressure. It is crucial that you stop drinking alcohol. Pending Studies at Discharge: No Stand-Alone Forms: My [facility], Medications to Prevent Stroke Skilled Items Patient informed of condition?: Yes DNR: No Discharge Level of Care: Acute rehab Communicable Disease: No Discharge Prognosis: Stable Lines: None Urinary Catheter: No Medications and DC Order Prescriptions: New clopidogrel 75 mg Tablet 75 mg PO QAM 14 Days Qty: 14 0RF metoprolol tartrate 25 mg Tablet 25 mg PO BID Qty: 30 0RF thiamine HCl (vitamin B1) 100 mg Tablet 100 mg PO QAM Qty: 30 0RF folic acid 1 mg Tablet 1 mg PO QAM Qty: 30 0RF multivitamin with folic acid [Daily-Juani (with folic acid)] 400 mcg Tablet 1 tab PO QAM Qty: 30 0RF aspirin 81 mg Tablet,Delayed Release (Dr/Ec) 81 mg PO QAM Qty: 30 0RF rosuvastatin [Crestor] 40 mg tablet 40 mg PO DAILY Qty: 30 0RF Continued gabapentin 600 mg tablet 600 mg PO QID clobetasol 0.05 % cream 1 appln TOP DAILY PRN (Reason: Skin Irritation) sildenafil 100 mg tablet 100 mg PO DAILY PRN (Reason: Sexual Activity) metformin 500 mg Tablet 500 mg PO BID cyanocobalamin (vitamin B-12) 1,000 mcg Tablet 1,000 mcg PO QAM amlodipine 5 mg Tablet 5 mg PO QAM famotidine 20 mg Tablet 20 mg PO QPM losartan 100 mg Tablet 100 mg PO QAM oxycodone 5 mg capsule 5 mg PO Q6H PRN (Reason: pain) Qty: 20 0RF duloxetine 60 mg capsule,delayed release(DR/EC) 60 mg PO QAM acetaminophen [Arthritis Pain Relief (acetam)] 650 mg Tablet Extended Release 650 mg PO Q12H Held hydrochlorothiazide 50 mg Tablet 50 mg PO WK Hold Instructions: Resume on 03/12/24. Discuss with your primary care doctor before resuming Patient Comments: takes tuesday am hydrochlorothiazide 25 mg Tablet 25 mg PO [id number] Hold Instructions: Resume on 03/12/24. Discuss with your primary care doctor before resuming Patient Comments: takes in the am Rx Instructions: not tuesday baclofen 20 mg tablet 20 mg PO BID Hold Instructions: Resume on 03/05/24. Do not resume until discussed with your physician Discontinued metoprolol tartrate 50 mg tablet 50 mg PO BID rosuvastatin [Crestor] 20 mg tablet 20 mg PO QAM Discharge Orders: Discharge Order (Routine); Ordered 03/04/24 Ordered By: Faustino Treviño Admission Data Admit Date/Time: 02/26/24 09:36 Attending Provider: Faustino Treviño Admit Provider: Moiz Broderick Primary Care Provider: Yesi Clifford Other Providers: Moiz Broderick; Vickie Lubin; Jeremias Soler Kathleen; Yung Flores; Avtar Giang; Jesus Salas; Nishant Dela Cruz; Marilia Leigh; Gerry Blas; Sloan Sinclair; Martin Man; Elias Wyman; Denise Connell; Yolette Crespo; Nishant Hernández; [facility]; [facility]; Bridger Nash
[2024-03-04] MEDS: POTASSIUM CHLORIDE CRTAB 20 MEQ TABCR PO STA (08:50)
[2024-03-04 09:27] VITALS: BP 159/72
== END 2024-03-04 11:45 | DRG 65 ==
LOC: EDINP 00:16 → ED 00:16 → EDINP 07:00 → 2N 14:11 → SUATTDRO 02-26 09:36

== ENCOUNTER 2024-03-28 12:56 | Inpatient (IN) ==
[2024-03-28 13:21] LABS: iSTAT Creatinine 6.9 mg/dl (0.6-1.3); iSTAT Hemoglobin 13.6 g/dl (14.0-18.0); iSTAT Potassium 4.3 mmol/L (3.3-5.0)
[2024-03-28] MEDS: OPTIRAY 320 125ml IV ONE (13:26)
--- NOTE | 2024-03-28 13:30 | XRay Report ---
XR chest 1V portable HISTORY: 78 years-old Male tube placement acute respiratory failure COMPARISON: 01/18/2023 TECHNIQUE: AP view of the chest FINDINGS: Endotracheal tube overlies the midline, 5.9 cm superior to the [place]. Heart size is normal. The lung s appear clear. No pneumothorax or pleural effusion. Extensive spinal fusion hardware. IMPRESSION: 1. Endotracheal tube overlies the midline, 5.9 cm superior to the g[place]. 2. The lungs appear clear. No pneumothorax. ACT 112: Negative or not required by law. The above report was generated using voice recognition software. It may contain grammatical, syntax o r spelling errors. Electronically signed by: Antonio Robbins M.D. 03/28/2024 1:29 PM
--- NOTE | 2024-03-28 13:36 | CT Scan Report ---
CT OF THE HEAD WITHOUT CONTRAST CLINICAL HISTORY: Unresponsive. Intracranial hemorrhage. COMPARISON STUDY: MRI of the brain February 25, 2024. Head CT February 27, 2024. CT DOSE: 625.8 mGy.cm TECHNIQUE: Helical axial images of the head were obtained without IV contrast. Automated exposure con trol was utilized for the study. A dose lowering technique was utilized adhering to the principles o f ALARA. FINDINGS: No acute intracranial hemorrhage, midline shift or mass effect is present. The ventricular system is unremarkable. Streak artifact from coils within the expected location of the anterior commu nicating artery is noted. Prominence of the extra-axial spaces is unchanged. The basal cisterns are p atent. No extra-axial collections are present. There are no findings to suggest acute dural sinus thr ombosis or acute territorial infarct. No significant calvarial abnormalities are present. Secretions within the nasopharynx are likely related to intubation. IMPRESSION: 1. No acute intracranial findings. No change in appearance of the brain. 2. 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 Exam mildly compromised given as sociated streak artifact. ACT 112: Negative or not required by law. Electronically signed by: Hossein Mathur M.D. 03/28/2024 1:34 PM
--- NOTE | 2024-03-28 13:55 | CT Scan Report ---
CT angio head w con, CT angio neck with con CLINICAL HISTORY: 78 years-old Male with stroke, bleed. Acute stroke like symptoms COMPARISON STUDY: Head CT of same day, also 02/27/2024, MRA head 02/25/2024. TECHNIQUE: Following the IV administration of 112 cc of Optiray, CT angiogram of the head and neck wa s performed. Images are reviewed in the axial, sagittal, and coronal planes. 3-D MIPS images are crea donovan and assessed. IV contrast was administered without complication. All measurements were obtained a ccording to NASCET criteria. A dose lowering technique was utilized adhering to the principles of ALA RA. CT DOSE: 522.35 mGy.cm FINDINGS: Endotracheal tube is present with moderate secretions within the airway. Extensive spinal fusion hard deal. The lung apices are clear without pneumothorax. Debris noted within the esophagus. No acute fra cture identified. CT ANGIOGRAM OF THE HEAD AND NECK: There is atherosclerosis of the thoracic aortic arch. Patency of the innominate and imaged subclavian arteries. The common carotid arteries are patent. Moderate atherosclerosis of the carotid bulbs with out significant stenosis. Internal carotid arteries appear patent. There is mild multifocal stenoses of the patent middle cerebral arteries. There is a short segment focus of high-grade stenosis versus occlusion involving a left M2 branch on image 139 series 3 with distal reconstitution. This appears u nchanged from the 02/25/2024 exam. 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 There is multifocal high-grade stenoses within the A2 branch of the lef t anterior cerebral artery. The right anterior cerebral artery is widely patent. Dominant left vertebral artery. Developmentally diminutive right vertebral artery with high-grade radha nosis within the V4 segment. The basilar artery is patent. Patent posterior cerebral arteries. Cerebr al venous sinuses appear patent. IMPRESSION: 1. 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 2. Short segment high-grade stenosis versus occlusion involving a left M2 branch within the sylvian f issure is unchanged from the 02/25/2024 exam. 3. Multifocal high-grade stenoses within the A2 segment of the left anterior cerebral artery, also un changed from prior. . 4. Endotracheal tube in place with moderate secretions within the airway and esophagus. ACT 112: Negative or not required by law. The above report was generated using voice recognition software. It may contain grammatical, syntax o r spelling errors. Electronically signed by: Antonio Robbins M.D. 03/28/2024 1:53 PM
[2024-03-28] MEDS ORDERED: MIDAZOLAM BOLUS FROM BAG IV PRN (13:56)
[2024-03-28] MEDS ORDERED: MIDAZOLAM HCL 125 MG/250 ML BAG IV PRN (13:56)
[2024-03-28 14:20] LABS: Basophils # (auto) 0.01 K/uL (0.00-0.20); Basophils % (auto) 0.1 %; Eosinophils # (auto) 0.02 K/uL (0.00-0.50); Eosinophils % (auto) 0.3 %; Hematocrit (blood only) 38.7 % (42.0-52.0); Hemoglobin 12.7 g/dl (14.0-18.0); Immature Granulocytes # (auto) 0.04 K/uL (0.01-0.20); Immature Granulocytes % (auto) 0.6 %; Lymphocytes # (auto) 0.53 K/uL (1.20-3.40); Lymphocytes % (auto) 7.3 %; Mean Corpuscular Hemoglobin 29.4 pg (25.0-34.0); Mean Corpuscular Hgb Conc 32.8 g/dL (32.0-36.0); Mean Corpuscular Volume 89.6 fL (80.0-100.0); Mean Platelet Volume 12.3 fL (9.4-12.4); Monocytes # (auto) 0.67 K/uL (0.11-0.59); Monocytes % (auto) 9.2 %; Neutrophils # (auto) 5.99 K/uL (1.40-6.50); Neutrophils % (auto) 82.5 %; Platelet Count 197 K/uL (130-400); RDW Coefficient of Variation 13.9 % (11.5-14.5); RDW Standard Deviation 45.6 fL (36.4-46.3); Red Blood Count 4.32 M/uL (4.70-6.10); White Blood Count 7.26 K/ul (4.8-10.8)
[2024-03-28] MEDS: STAT IV Infusion **Titration per Protocol STA (14:28)
[2024-03-28] MEDS: NALOXONE HCL 0.4 MG/1 ML VIAL/CARP ONE (14:47)
[2024-03-28 14:59] LABS: Albumin Level 3.8 gm/dl (3.4-5.0); Bilirubin Direct 0.2 mg/dl (0-0.2); Bilirubin,Total 1.1 mg/dl (0.2-1.0); Calcium 9.3 mg/dl (8.6-10.3); Creatinine Clr Calc Pharmacy 11.4 ml/min; Potassium 4.3 mmol/L (3.5-5.1); Total Protein 6.6 gm/dl (6.0-8.3)
[2024-03-28 15:06] LABS: Appearance Urine Cloudy (Clear); Bacteria Urine Automated None Seen (None Seen); Bilirubin Urine Negative (Negative); Blood Urine 2+ (Negative); Cast Urine Automated >20 /lpf (0-2); Color Urine Dark Yellow; Glucose Urine UA Negative (Negative); Ketones Urine Trace (Negative); Leukocyte Esterase Urine Negative (Negative); Nitrite Urine Negative (Negative); Protein Urine 2+ (Negative); RBC Urine Automated 0-2 /hpf (0-2); Specific Gravity Urine 1.022 (1.000-1.030); Urobilinogen Urine Negative (Negative); WBC Urine Automated 0-5 /hpf (0-5)
[2024-03-28 15:33] LABS: Acetaminophen 3 ug/ml (10-30); Salicylate < 3.0 mg/dl (3.0-30)
--- NOTE | 2024-03-28 15:42 | Electrocardiogram Report ---
Test Reason : Blood Pressure : */* mmHG Vent. Rate : 77 BPM Atrial Rate : 77 BPM P-R Int : 182 ms QRS Dur : 78 ms QT Int : 410 ms P-R-T Axes : 63 62 70 degrees QTcB Int : 463 ms Normal sinus rhythm Normal ECG When compared with ECG of 25-Feb-2024 00:47, No significant change was found Confirmed by Rishi Taylor ([id number]) on 03/28/2024 3:42:33 PM Referred By: REFERRED SELF Confirmed By: Rishi Taylor
[2024-03-28 15:50] LABS: Amphetamines+Metham, Urine Neg (Neg); Barbiturates, Urine Neg (Neg); Benzodiazepine, Urine Pos (Neg); Cocaine, Urine Neg (Neg); Fentanyl, Urine Neg (Neg); MDMA (Ecstacy), Urine Neg (Neg); Marijuana, Urine Neg (Neg); Methadone, Urine Neg (Neg); Opiate, Urine Neg (Neg); Phencyclidine, Urine Neg (Neg)
--- NOTE | 2024-03-28 16:01 | Emergency Department Note ---
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 atherosclerosis of the thoracic aortic arch. Patency of the innominate and imaged subclavian arteries. The common carotid arteries are patent. Moderate atherosclerosis of the carotid bulbs without significant stenosis. Internal carotid arteries appear patent. There is mild multifocal stenoses of the patent middle cerebral arteries. There is a short segment focus of high-grade stenosis versus occlusion involving a left M2 branch on image 139 series 3 with distal reconstitution. This appears unchanged from the 02/25/2024 exam. 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 There is multifocal high-grade stenoses within the A2 branch of the left anterior cerebral artery. The right anterior cerebral artery is widely patent. Dominant left vertebral artery. Developmentally diminutive right vertebral artery with high-grade stenosis within the V4 segment. The basilar artery is patent. Patent posterior cerebral arteries. Cerebral venous sinuses appear patent. IMPRESSION: 1. 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 2. Short segment high-grade stenosis versus occlusion involving a left M2 branch within the sylvian fissure is unchanged from the 02/25/2024 exam. 3. 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 . 4. Endotracheal tube in place with moderate secretions within the airway and esophagus. ACT 112: Negative or not required by law. The above report was generated using voice recognition software. It may contain grammatical, syntax or spelling errors. Electronically signed by: Antonio Robbins M.D. 03/28/2024 1:53 PM Neck CTA 03/28/24 13:15 CT angio head w con, CT angio neck with con CLINICAL HISTORY: 78 years-old Male with stroke, bleed. Acute stroke like symptoms COMPARISON STUDY: Head CT of same day, also 02/27/2024, MRA head 02/25/2024. TECHNIQUE: Following the IV administration of 112 cc of Optiray, CT angiogram of the head and neck was performed. Images are reviewed in the axial, sagittal, and coronal planes. 3-D MIPS images are created and assessed. IV contrast was administered without complication. All measurements were obtained according to NASCET criteria. A dose lowering technique was utilized adhering to the principles of ALARA. CT DOSE: 522.35 mGy.cm FINDINGS: Endotracheal tube is present with moderate secretions within the airway. Extensive spinal fusion hardware. The lung apices are clear without pneumothorax. Debris noted within the esophagus. No acute fracture identified. CT ANGIOGRAM OF THE HEAD AND NECK: There is atherosclerosis of the thoracic aortic arch. Patency of the innominate and imaged subclavian arteries. The common carotid arteries are patent. Moderate atherosclerosis of the carotid bulbs without significant stenosis. Internal carotid arteries appear patent. There is mild multifocal stenoses of the patent middle cerebral arteries. There is a short segment focus of high-grade stenosis versus occlusion involving a left M2 branch on image 139 series 3 with distal reconstitution. This appears unchanged from the 02/25/2024 exam. 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 There is multifocal high-grade stenoses within the A2 branch of the left anterior cerebral artery. The right anterior cerebral artery is widely patent. Dominant left vertebral artery. Developmentally diminutive right vertebral artery with high-grade stenosis within the V4 segment. The basilar artery is patent. Patent posterior cerebral arteries. Cerebral venous sinuses appear patent. IMPRESSION: 1. 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 2. Short segment high-grade stenosis versus occlusion involving a left M2 branch within the sylvian fissure is unchanged from the 02/25/2024 exam. 3. 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 . 4. Endotracheal tube in place with moderate secretions within the airway and esophagus. ACT 112: Negative or not required by law. The above report was generated using voice recognition software. It may contain grammatical, syntax or spelling errors. Electronically signed by: Antonio Robbins M.D. 03/28/2024 1:53 PM Discharge Plan Visit Data Chief Complaint: Unresponsive Stated Complaint: UNRESPONSIVE ED Provider: Rimma Chilel Discharge Problem: Unresponsive, Acute renal failure Patient Disposition: Admitted As Inpatient Discharge Instructions Interventions: ED Discharge Assessment Last Done: 03/28/24 18:10
--- NOTE | 2024-03-28 17:02 | History & Physical Report ---
Date of Service March 28, 2024 Assessment & Plan (1) Unresponsive: (2) Acute renal failure: (3) CVA (cerebral vascular accident): (4) History of ETOH abuse: (5) Coronary artery disease: (6) Diabetes mellitus, type 2: (7) HTN (hypertension): Plan: #Unresponsive Patient is 78 year old male with PMH HTN, HLD, CAD, prediabetes, chronic anemia, alcohol use, CVA presented to ER as was found unresponsive lying on floor today. 02/2024 hospitalized with acute to subacute CVA, alcohol withdrawal and recommended aspirin, Plavix, Crestor. Per family patient likely not taking medications as mentioned he lost his medications. Patient intubated by EMS. CT Head: No acute intracranial findings. No change in appearance of the brain. 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 Exam mildly compromised given associated streak artifact. CTA Head & Neck: Streak artifact related to the aneurysm coils within the anterior communicating artery limits the study. Short segment high-grade stenosis versus occlusion involving a left M2 branch within the sylvian fissure is unchanged from the 02/25/2024 exam. 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 CXR: Endotracheal tube overlies the midline, 5.9 cm superior to the gordo. The lungs appear clear. No pneumothorax. Unclear etiology. Possible alcohol withdrawal, however unclear when patient last consumed. No clear source of infection ETOH negative. Urine drug screen positive benzodiazepines however did receive midazolam prior to urine collection Currently intubated Admitted ICU MRI brain Further management per starch treating assistant # PETTY BUN: 91,Cr: 5.8 Baseline ~0.8 Avoid nephrotoxic agent when possible Obtain renal ultrasound # History of CVA Previously prescribed aspirin, Plavix and rosuvastatin. Per family appears patient has not been taking # History of alcohol abuse Recent hospitalization with treatment for alcohol withdrawal Patient prescribed gabapentin. Unclear if patient been taking Unclear when last EtOH consumed In ER EtOH level negative # HTN Prescribed amlodipine at home. Unclear if patient has been taking # Dyslipidemia Prescribed rosuvastatin #Prediabetes A1c: 5.8 in 02/2024 DVT Prophylaxis SCDs Admit ICU DNR/DNI as per discussion with pt's sister and niece. Wish to continue ventilation but would not want prolonged and would wish to re-evaluate in 2-3 days. Follows with [facility] for routine care Pt was seen and care coordinated with Dr Nash. See addendum I spent a total of 78 minutes reviewing notes, outpatient records, labs, medication, coordinating, documenting and providing care for this patient excluding time spent in the performance of separately billed services. History of Present Illness Chief Complaint: unresponsive Primary Care Provider: Yesi Clifford MD Patient is 78 year old male with PMH HTN, HLD, CAD, prediabetes, chronic anemia, alcohol use, CVA presented to ER as was found unresponsive today. History obtained from patient's niece and her who live close by and check in on patient. Recent [facility] hospitalization 02/25/2024-03/04/2024 for acute to subacute CVA, alcohol withdrawal. Was recommended aspirin, Plavix, Crestor. Patient discharged to acute rehab. States since being home was using cane however family have noted patient to become increasingly week over past 2 weeks. Reports checks on patient almost daily and in the past 2 weeks has found patient on 4 a pproximately 4 times. Patient was unable to get himself up and will need to be lifted back on the couch. States patient's house is very cluttered and he typically lives out of 1 room and sleeps on couch. States past 2 weeks has been using a bucket beside the couch to urinate and defecate in. Family reports patient had stated that he "lost his medications". It is unclear if patient taking any medications since discharge home from rehab. Family report haven't noticed alcohol in house for the past week but are uncertain if patient has been drinking ETOH. States yesterday found patient lying on floor next to couch and assisted put it back on. States at that time patient was alert and oriented and he was refusing to come to the hospital. This morning family checked on patient and found patient on floor next to couch and was unresponsive. Family reports patient appeared to be breathing normally and had his eyes open but was otherwise not responding. EMS transported patient to ER. It is reported EMS gave etomidate, Versed, fentanyl and intubated. Patient's sister lives out of state and is currently at bedside. Patient's niece and her live locally. Patient's niece reports a couple weeks ago during patient's recent hospitalization they had family discussion about his wishes and he had stated that he would not want to "live on machines" and did not want CPR. Family reports patient did not get formal paperwork completed. Currently patient's sister and patient's niece wish to proceed with further workup and treatment and would like to continue intubation, ventilation for several days to determine patient's prognosis but states if patient's heart stops does not want CPR or defibrillation Allergies Allergy/AdvReac Type Severity Reaction Status Date / Time lisinopril AdvReac Mild Cough Verified 02/25/24 02:25 Home Medications Medication Instructions Recorded Confirmed Type clobetasol 0.05 % topical cream 1 appln topical DAILY PRN Skin 01/12/19 03/28/24 History Irritation gabapentin 600 mg tablet 600 mg PO QID 01/12/19 03/28/24 History sildenafil 100 mg tablet 100 mg PO UD PRN Sexual Activity 02/01/19 03/28/24 History amlodipine 5 mg tablet 5 mg PO QAM 12/21/22 03/28/24 History cyanocobalamin (vitamin B-12) 1,000 mcg PO QAM 12/21/22 03/28/24 History 1,000 mcg tablet famotidine 20 mg tablet 20 mg PO UD 12/21/22 03/28/24 History hydrochlorothiazide 25 mg tablet 25 mg PO UD 12/21/22 03/28/24 History hydrochlorothiazide 50 mg tablet 50 mg PO UD 12/21/22 03/28/24 History losartan 100 mg tablet 100 mg PO QAM 12/21/22 03/28/24 History metformin 500 mg tablet 500 mg PO BID 12/21/22 03/28/24 History acetaminophen 650 mg 650 mg PO Q12H 02/25/24 03/28/24 History tablet,extended release (Arthritis Pain Relief (acetaminophen) ER) baclofen 20 mg tablet 20 mg PO BID 02/25/24 03/28/24 History duloxetine 60 mg capsule,delayed 60 mg PO QAM 02/25/24 03/28/24 History release aspirin 81 mg tablet,delayed 81 mg PO QAM #30 tabs 03/04/24 03/28/24 Rx release folic acid 1 mg tablet 1 mg PO QAM #30 tabs 03/04/24 03/28/24 Rx metoprolol tartrate 25 mg tablet 25 mg PO BID #30 tabs 03/04/24 03/28/24 Rx multivitamin with folic acid 400 1 tab PO QAM #30 tabs 03/04/24 03/28/24 Rx mcg tablet (Daily-Juani (with folic acid)) rosuvastatin 40 mg tablet (Crestor) 40 mg PO DAILY #30 tabs 03/04/24 03/28/24 Rx thiamine HCl (vitamin B1) 100 mg 100 mg PO QAM #30 tabs 03/04/24 03/28/24 Rx tablet clopidogrel 75 mg tablet 75 mg PO DAILY 03/28/24 03/28/24 History diclofenac sodium 1 % topical gel 2 g topical QID 03/28/24 03/28/24 History oxycodone 5 mg capsule 5 mg PO UD PRN pain 03/28/24 03/28/24 History Past Med/Surg History Problem List Diabetes mellitus, type 2 NIDDM Coronary artery disease s/p 3 CONNOR 2010 Unresponsive Acute renal failure Metabolic encephalopathy CVA (cerebral vascular accident) TIA (transient ischemic attack) Fall (Acute) Right leg weakness (Acute) Alcohol withdrawal delirium Fall Head injury S/P total knee arthroplasty Encounter for pre-operative examination Lumbar stenosis with neurogenic claudication (Acute 02/11/14) Back pain (Acute) C. difficile colitis Colitis HTN (hypertension) controlled, stable per pt Medical History History of ETOH abuse Osteoarthritis of left knee Medical marijuana use Gout Neuropathy of both feet Hyperlipidemia Surgical History History of repair of right rotator cuff History of decompression of ulnar nerve right Status post trigger finger release History of carpal tunnel release of both wrists History of spinal fusion x3--per pt from cervical to lumbar region, normal ROM History of colonoscopy History of hernia surgery History of tooth extraction History of heart artery stent 3 CONNOR placed 03/20/11 @ [facility] History of cardiac cath 03/20/11 @ [facility] with 3 CONNOR placed (pt states was on plavix taken off roughly 6 months ago)--follows with Emerson Hampton PA-C @ [facility] Family History Other No family history of adverse response to anesthesia Social History Smoking Status: Unknown if ever smoked Tobacco Type: Cigarettes Second Hand Exposure: Yes; Do You Dip or Chew Tobacco: No; Hx Alcohol Use: Yes Alcohol type: beer Hx Substance Use: Yes Last Used Substance: Unknown Last Used Substance Other:: last used medical marijuana card 3 months ago. Used marijuana once a week. Preferred Language: Upper Sorbian Communication Ability: Effective Community Health Nurse Required: No Beliefs That Will Affect Care: Cultural Current Living Situation: Alone Feels Safe at Home: Yes Assistive Devices: Cane Review of Systems Review of Systems: Unobtainable due to endotracheal tube Physical Exam Physical Exam: General: +sedated and intubated, appears WDWN Head: normocephalic, atraumatic Eyes: pupils 3mm round and sluggish reactive to light, anicteric ENT: normal inspection external ears, nose, +ET tube in place Neck: trachea midline Lungs: appear clear, +Intubated and ventilated CV: RRR, no pretibial edema Abd: normal BS, soft Ext: no cyanosis, no erythema Neuro: +sedated Skin: warm, dry Results & Data Results & Data Vital Signs (Past 12 Hours) Vital Signs Temp Pulse Pulse Resp BP BP Pulse Ox 03/28/24 16:45 36.9 C 71 19 122/66 03/28/24 16:15 36.7 C 69 18 132/70 03/28/24 16:03 36.6 C 67 18 139/73 100 03/28/24 15:41 65 18 100 03/28/24 15:15 36.5 C 65 18 122/74 03/28/24 14:52 36.3 C L 66 18 126/67 100 03/28/24 13:43 35.6 C L 62 18 174/64 H 100 03/28/24 13:10 03/28/24 13:08 70 18 100 03/28/24 13:03 73 03/28/24 12:54 36 C L 71 30 H 138/87 100 O2 Del Method FiO2 03/28/24 16:45 Mechanical Vent 40 03/28/24 16:15 Mechanical Vent 40 03/28/24 16:03 Mechanical Vent 40 03/28/24 15:41 50 03/28/24 15:15 Mechanical Vent 50 03/28/24 14:52 Mechanical Vent 03/28/24 13:43 Mechanical Vent 03/28/24 13:10 Room Air, Mechanical Vent 03/28/24 13:08 50 03/28/24 13:03 03/28/24 12:54 Room Air Laboratory Results Short CBC 03/28/24 Range/Units 14:03 WBC 7.26 (4.8-10.8) K/ul Hgb 12.7 L (14.0-18.0) g/dl Hct 38.7 L (42.0-52.0) % Plt Count 197 (130-400) K/uL BMP 03/28/24 14:03 Sodium 142 Potassium 4.3 Chloride 100 Carbon Dioxide 25 BUN 89 H Creatinine 5.94 H* Glucose 107 H Calcium 9.3 Liver Function 03/28/24 Range/Units 14:03 Total Bilirubin 1.1 H (0.2-1.0) mg/dl Direct Bilirubin 0.2 (0-0.2) mg/dl AST 29 (13-39) U/L ALT 20 (7-52) U/L Alkaline Phosphatase 63 (34-104) U/L Albumin 3.8 (3.4-5.0) gm/dl Urine 03/28/24 Range/Units Unknown Urine Color Dark Yellow Urine Appearance Cloudy A (Clear) Urine pH 5.0 (4.5-7.5) Ur Specific [place] 1.022 (1.000-1.030) Urine Protein 2+ H (Negative) Urine Glucose (UA) Negative (Negative) Diagnostic Findings Chest X-Ray 03/28/24 13:03 XR chest 1V portable HISTORY: 78 years-old Male tube placement acute respiratory failure COMPARISON: 01/18/2023 TECHNIQUE: AP view of the chest FINDINGS: Endotracheal tube overlies the midline, 5.9 cm superior to the [place]. Heart size is normal. The lungs appear clear. No pneumothorax or pleural effusion. Extensive spinal fusion hardware. IMPRESSION: 1. Endotracheal tube overlies the midline, 5.9 cm superior to the g[place]. 2. The lungs appear clear. No pneumothorax. ACT 112: Negative or not required by law. The above report was generated using voice recognition software. It may contain grammatical, syntax or spelling errors. Electronically signed by: Antonio Robbins M.D. 03/28/2024 1:[address] 03/28/24 13:03 CT OF THE HEAD WITHOUT CONTRAST CLINICAL HISTORY: Unresponsive. Intracranial hemorrhage. COMPARISON STUDY: MRI of the brain February 25, 2024. Head CT February 27, 2024. CT DOSE: 625.8 mGy.cm TECHNIQUE: Helical axial images of the head were obtained without IV contrast. Automated exposure control was utilized for the study. A dose lowering technique was utilized adhering to the principles of ALARA. FINDINGS: No acute intracranial hemorrhage, midline shift or mass effect is present. The ventricular system is unremarkable. Streak artifact from coils within the expected location of the anterior communicating artery is noted. Prominence of the extra-axial spaces is unchanged. The basal cisterns are patent. No extra-axial collections are present. There are no findings to suggest acute dural sinus thrombosis or acute territorial infarct. No significant calvarial abnormalities are present. Secretions within the nasopharynx are likely related to intubation. IMPRESSION: 1. No acute intracranial findings. No change in appearance of the brain. 2. 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 Exam mildly compromised given associated streak artifact. ACT 112: Negative or not required by law. Electronically signed by: Hossein Mathur M.D. 03/28/2024 1:34 PM Head CTA 03/28/24 13:15 CT angio head w con, CT angio neck with con CLINICAL HISTORY: 78 years-old Male with stroke, bleed. Acute stroke like symptoms COMPARISON STUDY: Head CT of same day, also 02/27/2024, MRA head 02/25/2024. TECHNIQUE: Following the IV administration of 112 cc of Optiray, CT angiogram of the head and neck was performed. Images are reviewed in the axial, sagittal, and coronal planes. 3-D MIPS images are created and assessed. IV contrast was administered without complication. All measurements were obtained according to NASCET criteria. A dose lowering technique was utilized adhering to the princ iples of ALARA. CT DOSE: 522.35 mGy.cm FINDINGS: Endotracheal tube is present with moderate secretions within the airway. Extensive spinal fusion hardware. The lung apices are clear without pneumo thorax. Debris noted within the esophagus. No acute fracture identified. CT ANGIOGRAM OF THE HEAD AND NECK: There is atherosclerosis of the thoracic aortic arch. Patency of the innominate and imaged subclavian arteries. The common carotid arteries are patent. Moderate atherosclerosis of the carotid bulbs without significant stenosis. Internal carotid arteries appear patent. There is mild multifocal stenoses of the patent middle cerebral arteries. There is a short segment focus of high-grade stenosis versus occlusion involving a left M2 branch on image 139 series 3 with distal reconstitution. This appears unchanged from the 02/25/2024 exam. 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 There is multifocal high-grade stenoses within the A2 branch of the left anterior cerebral artery. The right anterior cerebral artery is widely patent. Dominant left vertebral artery. Developmentally diminutive right vertebral artery with high-grade stenosis within the V4 segment. The basilar artery is patent. Patent posterior cerebral arteries. Cerebral venous sinuses appear patent. IMPRESSION: 1. 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 2. Short segment high-grade stenosis versus occlusion involving a left M2 branch within the sylvian fissure is unchanged from the 02/25/2024 exam. 3. 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 . 4. Endotracheal tube in place with moderate secretions within the airway and esophagus. ACT 112: Negative or not required by law. The above report was generated using voice recognition software. It may contain grammatical, syntax or spelling errors. Electronically signed by: Antonio Robbins M.D. 03/28/2024 1:53 PM Neck CTA 03/28/24 13:15 CT angio head w con, CT angio neck with con CLINICAL HISTORY: 78 years-old Male with stroke, bleed. Acute stroke like symptoms COMPARISON STUDY: Head CT of same day, also 02/27/2024, MRA head 02/25/2024. TECHNIQUE: Following the IV administration of 112 cc of Optiray, CT angiogram of the head and neck was performed. Images are reviewed in the axial, sagittal, and coronal planes. 3-D MIPS images are created and assessed. IV contrast was administered without complication. All measurements were obtained according to NASCET criteria. A dose lowering technique was utilized adhering to the principles of ALARA. CT DOSE: 522.35 mGy.cm FINDINGS: Endotracheal tube is present with moderate secretions within the airway. Extensive spinal fusion hardware. The lung apices are clear without pneumothorax. Debris noted within the esophagus. No acute fracture identified. CT ANGIOGRAM OF THE HEAD AND NECK: There is atherosclerosis of the thoracic aortic arch. Patency of the innominate and imaged subclavian arteries. The common carotid arteries are patent. Moderate atherosclerosis of the carotid bulbs without significant stenosis. Internal carotid arteries appear patent. There is mild multifocal stenoses of the patent middle cerebral arteries. There is a short segment focus of high-grade stenosis versus occlusion involving a left M2 branch on image 139 series 3 with distal reconstitution. This appears unchanged from the 02/25/2024 exam. 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 There is multifocal high-grade stenoses within the A2 branch of the left anterior cerebral artery. The right anterior cerebral artery is widely patent. Dominant left vertebral artery. Developmentally diminutive right vertebral artery with high-grade stenosis within the V4 segment. The basilar artery is patent. Patent posterior cerebral arteries. Cerebral venous sinuses appear patent. IMPRESSION: 1. 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 2. Short segment high-grade stenosis versus occlusion involving a left M2 branch within the sylvian fissure is unchanged from the 02/25/2024 exam. 3. 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 . 4. Endotracheal tube in place with moderate secretions within the airway and esophagus. ACT 112: Negative or not required by law. The above report was generated using voice recognition software. It may contain grammatical, syntax or spelling errors. Electronically signed by: Antonio Robbins M.D. 03/28/2024 1:53 PM ECG Additional Comments: sinus rhythm, rate 77 per my interpretation Code Status & VTE Plan VTE Prophylaxis Plan VTE Prophylaxis will be ordered: Yes Supervising Physician Co-Signing Physician Notes Patient is a 78-year-old male with history of hypertension, hyperlipidemia, coronary artery disease, alcohol use disorder who was recently hospitalized and treated for CVA, alcohol withdrawal and was discharged to rehab facility presents from home with altered mental status. Patient completed rehab course and was discharged home few days ago. Currently patient is intubated and unable to provide any history. Most of the history is obtained from patient's family at bedside. As per the family, patient was found on the floor next to his couch unresponsive was still noted to be breathing and with his eyes open. EMS was called and patient was emergently intubated. Patient has been having multiple falls at home since discharge. Family informs that patient has lost his med ications and currently not taking most of his new medications. He has been complaining of generalized pain and has been using unknown pain medications per family. Unsure if patient has access to alcohol, last alcohol drink unknown as well. Patient's oral intake has been very poor. Please review HPI for complete details of presentation. I personally reviewed blood work and imaging studies. Patient will be admitted to ICU for further management. Physical Exam: Vitals signs as noted above General Appearance: Sedated and intubated, no apparent distress Head: normocephalic, Atraumatic Eyes: normal inspection, pupils pinpoint, sluggishly reactive to light Neck: supple, Trachea midline Respiratory/Chest: Normal breath sounds, CTA, No accessory muscle use Cardiovascular: S1, S2, No murmur Abdomen/GI:Soft, Non tender, Bowel sounds present Extremities/Musculoskeletal:normal inspection, no edema Neurologic/Psych: Sedated, intubated Skin: normal color, warm Acute metabolic encephalopathy Unclear etiology DD: Alcohol withdrawal, seizure activity, med overdose Ventilator dependent respiratory failure Acute renal failure Rhabdomyolysis Frequent falls, ambulatory dysfunction Recent CVA Medication noncompliance Alcohol use disorder CT head showed no acute findings Toxicology screen pending Normal alcohol levels Will check MRI brain, neurochecks, consider neurology evaluation Check urinalysis, renal ultrasound Avoid nephrotoxic agents as able Vent management as per ICU team Hold any sedating medications IV fluids as needed Monitor for alcohol withdrawal, start thiamine Monitor CK levels Fall precautions I personally interviewed and examined at bedside. Patient's care is coordinated with Vanessa Colby PA-C. I have reviewed the advanced practitioner's documentation, and I agree with plan of care. Please refer to the documentation above for details of patient's presentation and for discussion of other issues. I spent a total [id number] coordinating, documenting, and providing care for this patient excluding time spent in the performance of separately billed services.
[2024-03-28] MEDS: PIPERACILLIN/TAZOBACTAM 4.5 GM/100 ML BAG IV STA (17:37)
--- NOTE | 2024-03-28 17:53 | Critical Care Consultation ---
Date of Consultation March 28, 2024 Assessment & Plan (1) Metabolic encephalopathy: (2) Acute renal failure: (3) HTN (hypertension): Plan Reason Critically Ill: 78-year-old male was brought in by the EMS as he was found to be unresponsive and subsequently intubated. 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 Cardiac - -- Hypertension and dyslipidemia On amlodipine at home EKG 03/28/2024 1 PM: Normal sinus rhythm, normal axis, no ST-T wave changes appreciated 2D echo 10/11/2022: EF 60-65%, grade 1 diastolic dysfunction, mild concentric LVH, RV normal in size and function Respiratory - -- VDRF Likely secondary to protecting airway Continue with ventilatory support Keep RASS -1 Daily sedation holidays and SBT's GI - -- No acute issues RENAL/LYTES - -- Acute renal failure Baseline creatinine is 0.8 Likely prerenal Follow-up urine lites Avoid nephrotoxic medication ENDO - -- Diabetes type 2 Continue with ICU hypoglycemia protocol HEME - -- Normocytic anemia Monitor H&H ID - -- No clear source of infection Chest x-ray clean UA negative for leukocyte esterase or bacteria --Prophylaxis VTE:IPC GI:None Lines: Peripheral Diet: N.p.o. Plan: Give IV fluids, monitor BUNs/creatinine as well as potassium. No acute indication for hemodialysis Low sugar start the patient on D5 water as Patient would not want to have prolonged intubation. As per the patient as well as family he wants to be DNR/DNI but okay to continue with the current measures and if there is no improvement then no further escalation of care I have personally spent 64 minutes of critical care time in the direct management of this patient. This is a life/limb threatening event. This includes time spent evaluating patient, direct bedside care, chart review, placing orders, interpretation of diagnostic studies, discussion with consultants, patient, and family members, as well as other required patient management activities. This time is exclusive of all separately billable procedures, and teaching time and separate from and in addition to any other critical care service time. History of Present Illness History of Present Illness 78-year-old male was brought in by the EMS as he was found to be unresponsive and subsequently intubated Past medical history: Alcohol abuse, multiple strokes, coiling of the anterior cerebral artery, diabetes, lumbar radiculopathy Transferred to the ICU for further care Signout was given by ER physician as well as primary team At the time of examination in the ICU Patient saturation was 98-99% on 40% FiO2 PEEP of 5 He was breathing with the vent. He was moving all his extremities to pain and then spontaneously Blood pressure systolic in the 130s, heart rate in the low 80s. Tmax 37.2 History was obtained from the previous chart as well as H&P Allergies Allergy/AdvReac Type Severity Reaction Status Date / Time lisinopril AdvReac Mild Cough Verified 02/25/24 02:25 Home Medications Medication Instructions Recorded Confirmed Type clobetasol 0.05 % topical cream 1 appln topical DAILY PRN Skin 01/12/19 03/28/24 History Irritation gabapentin 600 mg tablet 600 mg PO QID 01/12/19 03/28/24 History sildenafil 100 mg tablet 100 mg PO UD PRN Sexual Activity 02/01/19 03/28/24 History amlodipine 5 mg tablet 5 mg PO QAM 12/21/22 03/28/24 History cyanocobalamin (vitamin B-12) 1,000 mcg PO QAM 12/21/22 03/28/24 History 1,000 mcg tablet famotidine 20 mg tablet 20 mg PO UD 12/21/22 03/28/24 History hydrochlorothiazide 25 mg tablet 25 mg PO UD 12/21/22 03/28/24 History hydrochlorothiazide 50 mg tablet 50 mg PO UD 12/21/22 03/28/24 History losartan 100 mg tablet 100 mg PO QAM 12/21/22 03/28/24 History metformin 500 mg tablet 500 mg PO BID 12/21/22 03/28/24 History acetaminophen 650 mg 650 mg PO Q12H 02/25/24 03/28/24 History tablet,extended release (Arthritis Pain Relief (acetaminophen) ER) baclofen 20 mg tablet 20 mg PO BID 02/25/24 03/28/24 History duloxetine 60 mg capsule,delayed 60 mg PO QAM 02/25/24 03/28/24 History release aspirin 81 mg tablet,delayed 81 mg PO QAM #30 tabs 03/04/24 03/28/24 Rx release folic acid 1 mg tablet 1 mg PO QAM #30 tabs 03/04/24 03/28/24 Rx metoprolol tartrate 25 mg tablet 25 mg PO BID #30 tabs 03/04/24 03/28/24 Rx multivitamin with folic acid 400 1 tab PO QAM #30 tabs 03/04/24 03/28/24 Rx mcg tablet (Daily-Juani (with folic acid)) rosuvastatin 40 mg tablet (Crestor) 40 mg PO DAILY #30 tabs 03/04/24 03/28/24 Rx thiamine HCl (vitamin B1) 100 mg 100 mg PO QAM #30 tabs 03/04/24 03/28/24 Rx tablet clopidogrel 75 mg tablet 75 mg PO DAILY 03/28/24 03/28/24 History diclofenac sodium 1 % topical gel 2 g topical QID 03/28/24 03/28/24 History oxycodone 5 mg capsule 5 mg PO UD PRN pain 03/28/24 03/28/24 History Patient History Medical History Coronary artery disease s/p 3 CONNOR 2010 Diabetes mellitus, type 2 NIDDM Gout HTN (hypertension) controlled, stable per pt Hyperlipidemia Medical marijuana use Neuropathy of both feet Surgical History History of cardiac cath 03/20/11 @ [facility] with 3 CONNOR placed (pt states was on plavix taken off roughly 6 months ago)--follows with Emerson Hampton PA-C @ [place] History of carpal tunnel release of both wrists History of colonoscopy History of decompression of ulnar nerve right History of heart artery stent 3 CONNOR placed 03/20/11 @ [facility] History of hernia surgery History of repair of right rotator cuff History of spinal fusion x3--per pt from cervical to lumbar region, normal ROM History of tooth extraction Status post trigger finger release Family History Other No family history of adverse response to anesthesia Social History Smoking Status: Unknown if ever smoked Tobacco Type: Cigarettes Second Hand Exposure: Yes; Do You Dip or Chew Tobacco: No; Hx Alcohol Use: Yes Alcohol type: beer Hx Substance Use: Yes Last Used Substance: Unknown Last Used Substance Other:: last used medical marijuana card 3 months ago. Used marijuana once a week. Preferred Language: Malian Communication Ability: Effective Control Room Agent Required: No Beliefs That Will Affect Care: Cultural Current Living Situation: Alone Feels Safe at Home: Yes Assistive Devices: Cane Review of Systems 2 Review of Systems: Unobtainable due to endotracheal tube Physical Exam 2 Physical Exam: Constitutional: No acute distress HEENT: PERRLA Respiratory system: Decreased air entry bilaterally, no wheeze, no rhonchi, positive crackles bilaterally CVS: S1-S2 positive, no murmurs or gallops Abdomen: Soft, nontender, nondistended, positive bowel sounds x4 Extremities: +2 pulses bilaterally radialis/ dorsalis pedis, no cyanosis, no edema Neuro: Intubated, sedated Psych: Unable to assess G/U: Positive Poole Skin: no rashes, warm and dry Lymphatic: no cervical or axillary lymphadenopathy Results & Data Results & Data Vital Signs (Past 12 Hours) Vital Signs Temp Pulse Pulse Resp BP BP Pulse Ox 03/28/24 17:39 37 C 73 19 111/66 03/28/24 16:45 36.9 C 71 19 122/66 03/28/24 16:15 36.7 C 69 18 132/70 03/28/24 16:03 36.6 C 67 18 139/73 100 03/28/24 15:41 65 18 100 03/28/24 15:15 36.5 C 65 18 122/74 03/28/24 14:52 36.3 C L 66 18 126/67 100 03/28/24 13:43 35.6 C L 62 18 174/64 H 100 03/28/24 13:10 03/28/24 13:08 70 18 100 03/28/24 13:03 73 03/28/24 12:54 36 C L 71 30 H 138/87 100 O2 Del Method FiO2 11/06/24 17:39 Mechanical Vent 40 03/28/24 16:45 Mechanical Vent 40 03/28/24 16:15 Mechanical Vent 40 03/28/24 16:03 Mechanical Vent 40 03/28/24 15:41 50 03/28/24 15:15 Mechanical Vent 50 03/28/24 14:52 Mechanical Vent 03/28/24 13:43 Mechanical Vent 03/28/24 13:10 Room Air, Mechanical Vent 03/28/24 13:08 50 03/28/24 13:03 03/28/24 12:54 Room Air Laboratory Results 03/28/24 14:03 03/28/24 14:03 Coding Level of Care Code 38354 CRITICAL CARE 1ST 30-74M Diagnoses Metabolic encephalopathy G93.41 Acute renal failure N17.9 HTN (hypertension) I10
[2024-03-28] MEDS ORDERED: SODIUM CHLORIDE 0.9% IV SCH (18:30)
[2024-03-28] MEDS: SODIUM CHLORIDE 0.9% 500 ML IV ONE (18:41)
[2024-03-28 18:49] LABS: Base Excess VBG -0.4 mEq/L; HCO3 VBG 25 mmol/L; Oxygen Saturation VBG < 60.0 %; PCO2 VBG 42 mmHg (38-50); PO2 VBG 34 mmHg; pH VBG 7.38 (7.36-7.41)
[2024-03-28] MEDS: ICU Protocol for HYPERglycemia SCH (19:07)
[2024-03-28] MEDS: DEXTROSE 5% 1,000 ML IV SCH (19:47)
[2024-03-28 20:29] LABS: Thyroid Stimulating Hormone 0.875 uIu/ml (0.300-4.500)
[2024-03-28] MEDS ORDERED: GLUCAGON FOR INJ 1 MG VIAL SQ PRN (20:51)
[2024-03-28] MEDS ORDERED: GLUCOSE 10 TAB/TUBE PO PRN (20:51)
[2024-03-28] MEDS ORDERED: CARBOHYDRATES FOR HYPOGLYCEMIA PO PRN (20:51)
[2024-03-28] MEDS ORDERED: GLUCOSE 40% GEL 15 GM TUBE PO PRN (20:51)
[2024-03-28] MEDS: DEXTROSE 50% 50 ML SYRINGE IV PRN (20:59)
[2024-03-28] MEDS ORDERED: ICU Protocol for HYPERglycemia SCH (21:00)
[2024-03-28] MEDS: DEXTROSE 50% 50 ML SYRINGE IV ONE (21:08)
--- NOTE | 2024-03-28 21:53 | Ultrasound Report ---
Exam(s): US RENAL EXAM: US Retroperitoneal Limited, Renal CLINICAL HISTORY: Reason for exam: PETTY. TECHNIQUE: Real-time limited ultrasound of the retroperitoneum with image documentation. COMPARISON: No relevant prior studies available. FINDINGS: Right kidney: The right kidney measures 11 cm long axis. No stones. No hydronephrosis. Left kidney: The left kidney measures 12.5 cm long axis. No stones. No hydronephrosis. Bladder: The urinary bladder is completely decompressed by Poole catheter. Other findings: The spleen is borderline enlarged measuring 15cm long axis. IMPRESSION: Slightly increased renal cortical echogenicity bilaterally is nonspecific but can be seen in renal insufficiency. No hydronephrosis or ureterolithiasis is seen. The urinary bladder is completely decompressed by a Poole catheter. Borderline splenomegaly. Electronically signed by: Allan Swan MD 03/28/24 21:52 PM
[2024-03-28 22:48] LABS: BUN Creatinine Ratio 15.7 (10-20); Creatinine Clr Calc Pharmacy 10.5 ml/min; Potassium 3.6 mmol/L (3.5-5.1)
[2024-03-28 22:50] LABS: Potassium Random Urine 28.3 mmol/L
[2024-03-28 22:59] LABS: Creatinine Urine Random 79.4 mg/dl
--- NOTE | 2024-03-29 00:05 | Magnetic Resonance Report ---
Exam(s): MRI HEAD Without Contrast EXAM: MR Head Without Intravenous Contrast CLINICAL HISTORY: Reason for exam: Altered mental status. TECHNIQUE: Magnetic resonance images of the head/brain without intravenous contrast in multiple planes. COMPARISON: February 25, 20[address] MRI brain and head CT from March 28, 2024. FINDINGS: Brain: Mild cerebral atrophy and periventricular white matter T2 hyperintensity consistent with chronic small vessel disease and/or senescent changes. No areas of diffusion restriction are seen to indicate acute stroke. Small area of metal artifact consistent with prior aneurysm coiling at the base of the brain, likely prior anterior communicating artery aneurysm. No hemorrhage. Ventricles: Unremarkable. No ventriculomegaly. Bones/joints: Unremarkable. No acute fracture. Sinuses: Trace amount of fluid or mucosal thickening in the left sphenoid sinus. The remaining paranasal sinuses are within normal limits. Mastoid air cells: Unremarkable as visualized. No mastoid effusion. Orbits: Unremarkable as visualized. IMPRESSION: Mild cerebral atrophy and periventricular white matter T2 hyperintensity consistent with chronic small vessel disease and/or senescent changes. No areas of diffusion restriction are seen to indicate acute stroke. Electronically signed by: Allan Swan MD 03/29/24 00:04 AM
--- OUTSIDE RECORDS SUMMARY | 2024-03-29 00:17 | External Medical Summary | Summary of Care ---
Author Name Unknown Organization [facility] Address [address] [place] [address] Phone [phone] Care Team Providers Care Instrument Person Name Role Phone Yesi Garcia MD Primary Care Prov ider Reason for Visit * Reason Onset Date Comments [facility]: Screening 03/12/2024 Encounter Details Date Type Department Care Team (Late st Contact Info) Description 03/12/2024 Telephone [facility] [place] [address] [place] [address] Anali Briceno, [employer] [address] [place] [address] [facility]: Screening Allergies Active Allergy Reactions Criticality Noted Date Comments Lisinopril Cough Low 10/27/2021 documented as of this encounter (statuses as of 03/12/2024) Medications Medication Sig Dispensed Refills Start Date End Date Status Glucose Blood (ONETOUCH VERIO) STRP Test blood sugar once daily; dxE11.9 100 Strip 3 08/03/2019 Active Lancets (ONETOUCH DELICA PLUS [id number]) MISC Test blood sugar once daily; dxE11.9 [...] as of this encounter (statuses as of 03/12/2024) Active Problems Problem Noted Date Diagnosed Date [...] Overview: CONNOR x3 in 02/2011 at [facility] Dyslipidemia, goal LDL below 70 03/31/2011 [...] as of this encounter (statuses as of 03/12/2024) Resolved Problems Problem Noted Date Diagnosed Date Resolved Date Major depressive disorder, s phillip episode, mild 09/28/2023 10/11/2023 Other psoriasis 12/30/2020 08/14/2022 Opioid dependence, uncomplicated 12/22/2018 12/22/2018 Opioid dependence, uncomplicated 07/11/2017 07/27/2017 Acute blood loss anemia 06/17/201705/24 Pneumothorax, left 06/17/2017 8 Moderate malnutrition 06/15/20172017 Reactive depression (situational) 07/02/2014 07/05/2019 coronary artery disease 03/15/201105/2010 Overview: [facility]--+troponin-unstable angina, s/p stenting coronary artery disease 03/15/201112/22 Overview: [facility]--unstable angina s/p stenting Other tenosynovitis of [...] as of this encounter (statuses as of 03/12/2024) Immunizations Name Administration Dates Next Due COVID-19 mRNA, LNP-s, No Pre serve, 2-Dose Series (Moderna) 09/23/2020,09/02/2020 COVID-19, mRNA, LNP-s, PF, B ooster, 100mcg/0.5mg (Moderna) 04/03/2021 Covid-19, Mrna, Lnp-s, Pf, B ivalent, 30 Mcg, IM, 12 yrs and above ([employer]) 03/09/2022 Pneumococcal Conjugate Vacc, 13 Valent (Prevnar) 11/04/2014 Pneumococcal Polysaccharide PPV23 (Pneumovax) 01/04/2017,07/29/2011 Season Influenza, Quad, PF, Adjuvanted, 65+ Yrs, IM (FLUAD) 03/03/2020 Seasonal Influenza Vac., MDV , IM, 0.5 mL (Fluzone) 03/02/2017,02/11/2014,03/21/2013,02/09,03/23/2011,04/28/2010,03/11/2009 Seasonal Influenza, PF, 6 M & above, IM , (FluLaval or Fluzone) 02/24/2018 Seasonal Influenza, Quadriva lent Hd (Fluzone Hd) 03/22/2023,01/29/2022,03/23/2021 Seasonal Influenza, Quadriva lent, No Preserve, IM 04/01/2016,03/07/2015 Seasonal Influenza, Trivalen t, Adjuvanted, 65+ YRS, [...] encounter Miscellaneous Notes * Telephone Encounter - Anali Briceno LPN - 03/12/2024 10:51 AM EDT Juan David Truong was referred as a potential candidate for enrollment for [facility]. A review of this chart was completed and: Juan David meets criteria for [facility]. Jump to Initiation Referring care team was notified via : NWIX communication Sent to [facility] documented in this encounter Plan of Treatment Upcoming Encounters Date Type Department Care Team (Late st Contact Info) Description 03/27/2024 12:30 PM EST Office Visit Neurology Cheryl [facility] [place] [address] [place] [address] Marilia Leigh PA-C [address] [place] [address] 04/24/2024 11:30 AM EST Office Visit Cardiology [address] [place] [address] Emerson Hampton PA-C [address] [place] [address] 04/25/2024 1:30 PM EST Office Visit Interventional Pain Center, [facility] [address] [place] [address] Babita Tobin PA-C [address] [place] [address] 11/26/2024 1:00 PM EDT Nurse Only Ancillary [address] [place] [address] [place], Nurse [address] [place] [address] 12/03/2024 4:00 PM EDT Telemedicine Neurosurgery, [place] [address], [place] [id number] Andrzej Whitfield MD, PhD [address] [place] [address] Health Maintenance Due Date Last Done Comments Diabetic Foot Exam 11/18/2023 11/17/2022, 0 01/29/2022, 09/16/2020 Influenza Vaccine (FLU shot) (#1) 2024 03/22/2023, 01/29/2022, 03/23/2021, Additional history exists HbA1c 05/31/2024 11/29/2023, 05/0 12/2023, 04/12/2023, Additional history exists Albumin/Creatinine Ratio 09/27/2024 052 024, 11/17/2022, 09/01/2021, Additional history exists Adult Wellness Visit 11/20/2024 11/21/2023, 11/17/2022, 10/16/2021, Additional history exists Depression Monitoring 11/20/2024 11/21/2023 GFR 03/12/2025 03/12/2024, 02/20, 12/07/2023, Additional history exists Diabetic Eye Exam 04/10/2025 [...] this encounter Medical Devices Implanted Type Area Pipeline Dispatch Operator Device Identifier Shelf Expiration Date Model / Serial / Lot Dbx 5cc 084925 - [id number] - [id number] Implanted:Qty: 1 on 06/13/2017 by Janna Carcamo MD at [facility] Tissue - Human Left: Spine Thoracic MUSCULOSKELETAL TRANSPLANT FND 10/28/2018 [id number] / [id number] / Chip Cancellous 90cc 203515 - [id number] - [id number] Implanted:Qty: 1 on 06/16/2017 by Tank Multani DO at [facility] Tissue - Human N/A: Back MUSCULOSKELETAL TRANSPLANT FND 02/22/2018 [id number] / [id number] / Vitoss Bimodal Foam Pack 10cc - [id number] Implanted:Qty: 6 on 10/29/2015 by Tank Multani DO at [facility] N/A: Spine Thoracic YVROSE : SPINE 11/19/2016 [id number] / / [id number] Revision Post Implanted:Qty: 2 on 10/29/2015 by Tank Multani DO at [facility] N/A: Spine Thoracic [employer] [id number] / / Description:in set Screw Sterling Glenis 3 Ti Set - [id number] Implanted:Qty: 22 on 10/29/2015 by Tank Multani DO at [facility] N/A: Spine Thoracic YVROSE : SPINE [id number] / / Description:in set Screw Glenis Pa Ti 6.5x50mm - [id number] Implanted:Qty: 2 on 10/29/2015 by Tank Multani DO at [facility] N/A: Spine Thoracic YVROSE : SPINE [id number] / / Description:in set Screw Glenis Pa Ti 6.5x45mm - [id number] Implanted:Qty: 2 on 10/29/2015 by Tank Multani DO at [facility] N/A: Spine Thoracic YVROSE : SPINE [id number] / / Description:in set Screw Glenis Pa Ti 6.5x40mm - [id number] Implanted:Qty: 2 on 10/29/2015 by Tank Multani DO at [facility] N/A: Spine Thoracic YVROSE : SPINE [id number] / / Description:in set Screw Glenis Pa Ti 5.5x35mm - [id number] Implanted:Qty: 4 on 10/29/2015 by Tank Multani DO at [facility] N/A: Spine Thoracic YVROSE : SPINE [id number] / / Description:in set Glenis 5.5 X 30 Screw Implanted:Qty: 2 on 10/29/2015 by Tank Multani DO at [facility] N/A: Spine Thoracic YVROSE : SPINE [id number] / / Description:in set Glenis Large Laminar Hook Implanted:Qty: 2 on 10/29/2015 by Tank Multani DO at [facility] N/A: Spine Thoracic YVROSE [id number] / / Description:in set Glenis 2 Axel To Axel Connector Implanted:Qty: 4 on 10/29/2015 by Tank Multani DO at [facility] N/A: Spine Thoracic YVROSE [id number] / / Description:in set Axel Alloy Glenis 3 Ti 2b028ed - [id number] Implanted:Qty: 2 on 10/29/2015 by Tank Multani DO at [facility] N/A: Spine Thoracic YVROSE : SPINE [id number] / / Description:in set Graft Infuse Bone Med [id number] - [id number] Implanted:Qty: 1 on 06/13/2017 by Janna Carcamo MD at [facility] N/A: Spine Thoracic [employer] : NEURO CARE 03/22/2019 [id number] / / [id number] Lateral Interbody Size [id number] Zero Degree Implanted:Qty: 1 on 06/13/2017 by Janna Carcamo MD at [facility] Left: Spine Thoracic [employer] 02/23/2022 [id number] 10LP-G2 / / [id number] Lateral Interbody [id number] Zero Degree Implanted:Qty: 1 on 06/13/2017 by Janna Carcamo MD at [facility] N/A: Spine Thoracic [employer] 02/24/2021 [id number] 10LP-G2 / / [id number] Graft Infuse Bone Lg [id number] - [id number] Implanted:Qty: 1 on 06/16/2017 by Tank Multani DO at [facility] N/A: Back [employer] : NEURO CARE 09/20/2018 [id number] / / [id number] Screw Sterling Glenis 3 Ti Set - [id number] Implanted:Qty: 26 on 06/16/2017 by Tank Multani DO at [facility] N/A: Back YVROSE : SPINE 06/17/2017 [id number] / / Description:in set Axel Alloy Glenis 3 Ti 2g916vs - [id number] Implanted:Qty: 2 on 06/16/2017 by Tank Multani DO at [facility] N/A: Back YVROSE : SPINE 06/17/2017 [id number] / / Description:in set Glenis 2 Small Axel Conn Implanted:Qty: 4 on 06/16/2017 by Tank Multani DO at [facility] N/A: Back YVROSE 06/17/2017 [id number] / / Description:in set Screw Polyaxial Xia3 Ti 6x30mm - [id number] Implanted:Qty: 2 on 06/16/2017 by Tank Multani DO at [facility] N/A: Back YVROSE : SPINE 06/17/2017 [id number] / / Description:in set 5.0 X 30 Glenis Screw Implanted:Qty: 4 on 06/16/2017 by Tank Multani DO at [facility] N/A: Back YVROSE 06/17/2017 [id number] / / Description:in set 6.0 X 35 Musa Screw Implanted:Qty: 1 on 06/16/2017 by Tank Multani DO at [facility] N/A: Back YVROSE 06/17/2017 [id number] / / Description:in set 7.0 X 40 Musa Screw Implanted:Qty: 1 on 06/16/2017 by Tank Multani DO at [facility] N/A: Back YVROSE 06/17/2017 [id number] / / Description:in set 7.0 X 45 Musa Screw Implanted:Qty: 1 on 06/16/2017 by Tank Multani DO at [facility] N/A: Back YVROSE 06/17/2017 [id number] / / Description:in set 6.5 X 50 Musa Screw Implanted:Qty: 2 on 06/16/2017 by Tank Multani DO at [facility] N/A: Back YVROSE 06/17/2017 [id number] / / Description:in set 7.0 X 50 Musa Screw Implanted:Qty: 4 on 06/16/2017 by Tank Multani DO at [facility] N/A: Back YVROSE 06/17/2017 [id number] / / Description:in set Biocomposite Swivelock Suture [employer] 5.5x22mm Implanted:Qty: 1 on 06/26/2018 by Brown Wall DO at [facility] Right: Shoulder 01/21/2020 [id number] -2 / / [id number] Prox Tenodesis Implant Syst - [id number] Implanted:Qty: 1 on 06/26/2018 by Brown Wall DO at [facility] Right: Shoulder [employer] 01/20/2023 [id number] / / [id number] Stent Vasc 3x15mm Intracranial St Latexfree Tip Wo Non - [id number] Implanted:Qty: 1 on 06/15/2023 by Andrzej Whitfield MD, PhD at [facility] YVROSE : NEUROVASCULAR 10/25/2026 [id number] / / [id number] Description:right ica Stent Vasc 3x21mm Intracranial St Latexfree Tip Wo Non - [id number] Implanted:Qty: 1 on 06/15/2023 by Andrzej Whitfield MD, PhD at [facility] YVROSE : NEUROVASCULAR 05/31/2026 [id number] / / [id number] Microcatheter 0.010in [id number] Coil System Emblztn Stretch - [id number] Implanted:Qty: 1 on 06/15/2023 by Andrzej Whitfield MD, PhD at [facility] [employer] [id number] 07/21/2023 7 110-0715 / / [id number] Microcatheter 0.010in [id number] Coil System Emblztn Stretch - [id number] Implanted:Qty: 1 on 06/15/2023 by Andrzej Whitfield MD, PhD at [facility] [employer] [id number] 10/20/2026 7 110-0715 / / [id number] Microcatheter 0.010in [id number] Coil System Emblztn Stretch - [id number] Implanted:Qty: 1 on 06/15/2023 by Andrzej Whitfield MD, PhD at [facility] [employer] [id number] 09/20/2027 7 110-0619 / / [id number] Microcatheter 0.010in [id number] Coil System Emblztn Stretch - [id number] Implanted:Qty: 1 on 06/15/2023 by Andrzej Whitfield MD, PhD at [facility] [employer] [id number] 12/20/2026 7 110-0515 / / [id number] documented as of this encounter Advance Directives [...] Power of Attor katherine? No Care Teams Instrument Person Relationship Specialty Start Date End Date Yesi Garcia MD [address] [place] [address] [place] [address] PCP - General Family Medicine 10/27/21 documented as of this encounter
--- OUTSIDE RECORDS SUMMARY | 2024-03-29 00:17 | External Medical Summary ---
Author Name Unknown Address Unknown Organization K[facility] [place] [address] Laboratory Report Ordering Provider Test Date Status JESSICA MOON 03/12/2024 06:47:00 Final Observation Date Value Abnormality Reference (Units ) Status WBC, Total 03/12/2024 06:47:00 4.58 4.00-10.8 0 (K/uL) Final RBC 03/12/2024 06:47:00 3.78 4.50-5.25 (M/uL) Final Hemoglobin 03/12/2024 06:47:00 11.5 Below low normal 14 .0-16.8 (g/dL) Final HCT 03/12/2024 06:47:00 35.9 Below low normal 40. 0-48.4 (%) Final MCV 03/12/2024 06:47:00 95.0 82.0-99.5 (fL) Final MCH 03/12/2024 06:47:00 30.4 27.0-34.0 (pg) Final MCHC 03/12/2024 06:47:00 32.0 32.0-36.0 (g/dL) Final RDW 03/12/2024 06:47:00 14.1 11.5-15.5 (%) Final Platelets 03/12/2024 06:47:00 168 140-400 (K /uL) Final MPV 03/12/2024 06:47:00 12.5 6.6-11.1 ( fL) Final Performing Location [facility] [place] [address]
--- OUTSIDE RECORDS SUMMARY | 2024-03-29 00:17 | External Medical Summary | Summary of Care ---
Author Name Unknown Organization [facility] Address [address] [place] [address] Phone [phone] Care Team Providers Care Group Billing Coordinator Name Role Phone Yesi Garcia MD Primary Care Prov ider Reason for Visit * Reason Onset Date Comments [facility]: Engagement 03/12/2024 Encounter Details Date Type Department Care Team (Late st Contact Info) Description 03/12/2024 Telephone [facility] [place] [address] [place] [address] TadNakia, CLAY [address] [place] [address] [facility]: Engagement Allergies Active Allergy Reactions Criticality Noted Date Comments Lisinopril Cough Low 10/27/2021 documented as of this encounter (statuses as of 03/12/2024) Medications Medication Sig Dispensed Refills Start Date End Date Status Glucose Blood (ONETOUCH VERIO) STRP Test blood sugar once daily; dxE11.9 100 Strip 3 08/03/2019 Active Lancets (ONETOUCH DELICA PLUS YSREAM19G) MISC Test blood sugar once daily; dxE11.9 [...] 03/31/2011 Overview: CONNOR x3 in 02/2011 at [facility] Dyslipidemia, goal LDL below 70 [...] 07/02/2014 07/05/2019 coronary artery disease 03/15/201105/2010 Overview: [facility]--+troponin-unstable angina, s/p stenting coronary artery disease 03/15/201112/22 Overview: [facility]--unstable angina s/p stenting Other tenosynovitis [...] encounter Miscellaneous Notes * Telephone Encounter - Nakia Misrha OSA - 03/12/2024 11:09 AM EDT Outreach to patient for [facility] scheduling. Patient declined appointment scheduling at this time documented in this encounter Plan of Treatment Upcoming Encounters Date Type Department Care Team (Late st Contact Info) Description 03/27/2024 12:30 PM EST Office Visit Neurology Cheryl Jean Baptiste [place] [address] [facility] [place] [address] Marilia Leigh PA-C [address] [place] [address] 04/24/2024 11:30 AM EST Office Visit Cardiology [address] [place] [address] Emerson Hampton PA-C [address] [place] [address] 04/25/2024 1:30 PM EST Office Visit Interventional Pain Center, [facility] [address] [place] [address] Babita Tobin PA-C [address] [place] [address] 11/26/2024 1:00 PM EDT Nurse Only Ancillary [address] [place] [address] [place], Nurse [address] [place] [address] 12/03/2024 4:00 PM EDT Telemedicine Neurosurgery, [place] [address] [place] [address] Andrzej Whitfield MD, PhD [address] [place] [address] Health Maintenance Due Date Last Done Comments [...] this encounter Medical Devices Implanted Type Area Speech Language Therapist Device Identifier Shelf Expiration Date Model / Serial / Lot Dbx 5cc [id number] - [id number] - [id number] Implanted:Qty: 1 on 06/13/2017 by Janna Carcamo MD at OR [facility] Tissue - Human Left: Spine Thoracic MUSCULOSKELETAL TRANSPLANT FND 10/28/2018 [id number] / [id number] / Chip Cancellous 90cc 048008 - [id number] - [id number] Implanted:Qty: 1 on 06/16/2017 by Tank Multani DO at OR [facility] Tissue - Human N/A: Back MUSCULOSKELETAL TRANSPLANT FND 02/22/2018 [id number] / [id number] / Vitoss Bimodal Foam Pack 10cc - [id number] Implanted:Qty: 6 on 10/29/2015 by Tank Multani DO at OR [facility] N/A: Spine Thoracic YVROSE : SPINE 11/19/2016 [id number] / / [id number] Revision Post Implanted:Qty: 2 on 10/29/2015 by Tank Multani, at OR [facility] N/A: Spine Thoracic MEDICREA [id number] / / Description:in set Screw Sterling Glenis 3 Ti Set - [id number] Implanted:Qty: 22 on 10/29/2015 by Tank Multani DO at OR [facility] N/A: Spine Thoracic YVROSE : SPINE [id number] / / Description:in set Screw Glenis Pa Ti 6.5x50mm - [id number] Implanted:Qty: 2 on 10/29/2015 by Tank Multani DO at OR [facility] N/A: Spine Thoracic YVROSE : SPINE [id number] / / Description:in set Screw Glenis Pa Ti 6.5x45mm - [id number] Implanted:Qty: 2 on 10/29/2015 by Tank Multani DO at OR [facility] N/A: Spine Thoracic YVROSE : SPINE [id number] / / Description:in set Screw Glenis Pa Ti 6.5x40mm - [id number] Implanted:Qty: 2 on 10/29/2015 by Tank Multani DO at OR [facility] N/A: Spine Thoracic YVROSE : SPINE [id number] / / Description:in set Screw Glenis Pa Ti 5.5x35mm - [id number] Implanted:Qty: 4 on 10/29/2015 by Tank Multani DO at OR [facility] N/A: Spine Thoracic YVROSE : SPINE [id number] / / Description:in set Glenis 5.5 X 30 Screw Implanted:Qty: 2 on 10/29/2015 by Tank Multani DO at OR [facility] N/A: Spine Thoracic YVROSE : SPINE [id number] / / Description:in set Glenis Large Laminar Hook Implanted:Qty: 2 on 10/29/2015 by Tank Multani DO at OR [facility] N/A: Spine Thoracic YVROSE [id number] / / Description:in set Glenis 2 Axel To Axel Connector Implanted:Qty: 4 on 10/29/2015 by Tank Multani DO at OR [facility] N/A: Spine Thoracic YVROSE [id number] / / Description:in set Axel Alloy Glenis 3 Ti [id number] - [id number] Implanted:Qty: 2 on 10/29/2015 by Tank Multani DO at OR [facility] N/A: Spine Thoracic YVROSE : SPINE [id number] / / Description:in set Graft Infuse Bone Med [id number] - [id number] Implanted:Qty: 1 on 06/13/2017 by Janna Carcamo MD at OR [facility] N/A: Spine Thoracic MEDTRONIC : NEURO CARE 03/22/2019 [id number] / / [id number] Lateral Interbody Size [id number] Zero Degree Implanted:Qty: 1 on 06/13/2017 by Janna Carcamo MD at OR [facility] Left: Spine Thoracic [employer]M INC 02/23/2022 [id number] 10LP-G2 / / [id number] Lateral Interbody [id number] Zero Degree Implanted:Qty: 1 on 06/13/2017 by Janna Carcamo MD at OR [facility] N/A: Spine Thoracic [employer] 02/24/2021 [id number] 10LP-G2 / / [id number] Graft Infuse Bone Lg [id number] - [id number] Implanted:Qty: 1 on 06/16/2017 by Tank Multani DO at OR [facility] N/A: Back MED[employer]ONIC : NEURO CARE 09/20/2018 [id number] / / [id number] Screw Sterling Glenis 3 Ti Set - [id number] Implanted:Qty: 26 on 06/16/2017 by Tank Multani DO at OR [facility] N/A: Back YVROSE : SPINE 06/17/2017 [id number] / / Description:in set Axel Alloy Glenis 3 Ti [id number] - [id number] Implanted:Qty: 2 on 06/16/2017 by Tank Multani DO at OR [facility] N/A: Back YVROSE : SPINE 06/17/2017 [id number] / / Description:in set Glenis 2 Small Axel Conn Implanted:Qty: 4 on 06/16/2017 by Tank Multani DO at OR [facility] N/A: Back YVROSE 06/17/2017 [id number] / / Description:in set Screw Polyaxial Xia3 Ti 6x30mm - [id number] Implanted:Qty: 2 on 06/16/2017 by Tank Multani DO at OR [facility] N/A: Back YVROSE : SPINE 06/17/2017 [id number] / / Description:in set 5.0 X 30 Glenis Screw Implanted:Qty: 4 on 06/16/2017 by Tank Multani DO at OR [facility] N/A: Back YVROSE 06/17/2017 [id number] / / Description:in set 6.0 X 35 Musa Screw Implanted:Qty: 1 on 06/16/2017 by Tank Multain DO at OR [facility] N/A: Back YVROSE 06/17/2017 [id number] / / Description:in set 7.0 X 40 Musa Screw Implanted:Qty: 1 on 06/16/2017 by Tank Multani DO at OR [facility] N/A: Back YVROSE 06/17/2017 [id number] / / Description:in set 7.0 X 45 Musa Screw Implanted:Qty: 1 on 06/16/2017 by Tank Multani DO at OR [facility] N/A: Back YVROSE 06/17/2017 [id number] / / Description:in set 6.5 X 50 Musa Screw Implanted:Qty: 2 on 06/16/2017 by Tank Multani DO at OR [facility] N/A: Back YVROSE 06/17/2017 [id number] / / Description:in set 7.0 X 50 Musa Screw Implanted:Qty: 4 on 06/16/2017 by Tank Multani DO at OR [facility] N/A: Back YVROSE 06/17/2017 [id number] / / Description:in set Biocomposite Swivelock Suture [place] 5.5x22mm Implanted:Qty: 1 on 06/26/2018 by Brown Wall DO at OR [facility] Right: Shoulder 01/21/2020 AR-2323BCT -2 / / [id number] Prox Tenodesis Implant Syst - [id number] Implanted:Qty: 1 on 06/26/2018 by Brown Wall DO at OR [facility] Right: Shoulder [employer] 01/20/2023 AR-2290 / / [id number] Stent Vasc 3x15mm Intracranial St Latexfree Tip Wo Non - [id number] Implanted:Qty: 1 on 06/15/2023 by Andrzej Whitfield MD, PhD at OR [facility] YVROSE : NEUROVASCULAR 10/25/2026 [id number] / / [id number] Description:right ica Stent Vasc 3x21mm Intracranial St Latexfree Tip Wo Non - [id number] Implanted:Qty: 1 on 06/15/2023 by Andrzej Whitfield MD, PhD at OR [facility] YVROSE : NEUROVASCULAR 05/31/2026 [id number] / / [id number] Microcatheter 0.010in 3qmq87vl Coil System Emblztn Stretch - [id number] Implanted:Qty: 1 on 06/15/2023 by Andrzej Whitfield MD, PhD at OR [facility] [employer] [id number] 07/21/2023 7 110-0715 / / [id number] Microcatheter 0.010in 0sfn21yl Coil System Emblztn Stretch - [id number] Implanted:Qty: 1 on 06/15/2023 by Andrzej Whitfield MD, PhD at OR [facility] [employer] [id number] 10/20/2026 7 110-0715 / / [id number] Microcatheter 0.010in 5paz54hb Coil System Emblztn Stretch - [id number] Implanted:Qty: 1 on 06/15/2023 by Andrzej Whitfield MD, PhD at OR [facility] [employer] [id number] 09/20/2027 7 110-0619 / / [id number] Microcatheter 0.010in 3ejh97zd Coil System Emblztn Stretch - [id number] Implanted:Qty: 1 on 06/15/2023 by Andrzej Whitfield MD, PhD at OR [facility] [employer] [id number] 12/20/2026 7 110-0515 / / [id number] documented as of this encounter Advance Directives [...] 8:10 PM 06/20/2023 4:01 PM This order reflects the patients wishes [...] Power of Attor katherine? No Care Teams Group Billing Coordinator Relationship Specialty Start Date End Date Yesi Garcia MD [address] [place] [address] [place] [address] PCP - General Family Medicine 10/27/21 documented as of this encounter
--- OUTSIDE RECORDS SUMMARY | 2024-03-29 00:17 | External Medical Summary ---
Author Name Unknown Address Unknown Organization [facility] [place] [address] Laboratory Report Ordering Provider Test Date Status JESSICA MOON 03/12/2024 06:48:00 Final Observation Date Value Abnormality Reference (Units ) Status BUN 03/12/2024 06:48:00 23 Above high normal 6-20 (mg/dL) Final Creatinine 03/12/2024 06:48:00 0.8 0.6-1.2 (mg/dL) Final Glomerular filtration rate/1.73 sq M.predicted [Volume Rate/Area] in Serum, Plasma or Blood by Creatinine-based formula (CKD-EPI) 03/12/2024 06:48:00 90 >=60 (mL/min) Final eGFR is calculated based on the CKD-EPI 2020 equation. Sodium 03/12/2024 06:48:00 144 135-146 (m mol/L) Final Potassium 03/12/2024 06:48:00 3.5 3.5-5.1 (m mol/L) Final Cl 03/12/2024 06:48:00 102 98-107 (mm ol/L) Final CO2 03/12/2024 06:48:00 28 22-32 (mmo l/L) Final Anion gap 03/12/2024 06:48:00 14 7-15 (mmol /L) Final Glucose 03/12/2024 06:48:00 87 70-120 (mg /dL) Final Calcium 03/12/2024 06:48:00 9.8 8.4-10.2 ( mg/dL) Final Performing Location [facility] [place] [address]
--- OUTSIDE RECORDS SUMMARY | 2024-03-29 00:18 | External Medical Summary | Summary of Care ---
Author Name Unknown Organization [facility] Address [address] [facility] [place] [address] Phone [phone] Care Team Providers Care Telecommunications Field Technician Name Role Phone Yesi Garcia MD Primary Care Prov ider Encounter Details Date Type Department Care Team (Late st Contact Info) Description 02/27/2024 Population Health External Data Unspecified Department Allergies Active Allergy Reactions Criticality Noted Date Comments Lisinopril Cough Low 10/27/2021 documented as of this encounter (statuses as of 02/27/2024) Medications Medication Sig Dispensed Refills Start Date End Date Status Glucose Blood (ONETOUCH VERIO) STRP Test blood sugar once daily; dxE11.9 100 Strip 3 08/03/2019 Active Lancets (ONETOUCH DELICA PLUS VSYVOI68A) MISC Test blood sugar once daily; dxE11.9 [...] as of this encounter (statuses as of 02/27/2024) Active Problems Problem Noted Date Diagnosed Date [...] 03/31/2011 Overview: CONNOR x3 in 02/2011 at [facility] Dyslipidemia, goal LDL below 70 03/31/2011 [...] as of this encounter (statuses as of 02/27/2024) Resolved Problems Problem Noted Date Diagnosed Date Resolved Date Major depressive disorder, s phillip episode, mild 09/28/2023 10/11/2023 Other psoriasis 12/30/2020 08/14/2022 Opioid dependence, uncomplicated 12/22/2018 12/22/2018 Opioid dependence, uncomplicated 07/11/2017 07/27/2017 Acute blood loss anemia 06/17/201705/24 Pneumothorax, left 06/17/2017 8 Moderate malnutrition 06/15/20172017 Reactive depression (situational) 07/02/2014 07/05/2019 coronary artery disease 03/15/201105/2010 Overview: [facility]--+troponin-unstable angina, s/p stenting coronary artery disease 03/15/201112/22 Overview: [facility]--unstable angina s/p stenting Other tenosynovitis of [...] as of this encounter (statuses as of 02/27/2024) Immunizations Name Administration Dates Next Due COVID-19 [...] 11:30 AM EST Office Visit Cardiology [address] [place] [address] Emerson Hampton PA-C [address] [place] [address] 04/25/2024 1:30 PM EST Office Visit Interventional Pain Center, [facility] [address] [place] [address] Babita Tobin PA-C [address] [place] [address] 11/26/2024 1:00 PM EDT Nurse Only Ancillary [address] [place] [address] [place], Nurse [address] [place] [address] 12/03/2024 4:00 PM EDT Telemedicine Neurosurgery, [place] [address] [place], [place] [phone] Andrzej Whitfield MD, PhD [address] [place] [address] Health Maintenance Due Date Last [...] this encounter Medical Devices Implanted Type Area Maintenance Operator Device Identifier Shelf Expiration Date Model / Serial / Lot Dbx 5cc 911990 - [id number] - [id number] Implanted:Qty: 1 on 06/13/2017 by Janna Carcamo MD at OR [facility] Tissue - Human Left: Spine Thoracic MUSCULOSKELETAL TRANSPLANT FND 10/28/2018 102657 / [id number] / Chip Cancellous 90cc 345920 - [id number] - [id number] Implanted:Qty: 1 on 06/16/2017 by Tank Multani DO at OR [facility] Tissue - Human N/A: Back MUSCULOSKELETAL TRANSPLANT FND 02/22/2018 503264 / [id number] / Vitoss Bimodal Foam Pack 10cc - [id number] Implanted:Qty: 6 on 10/29/2015 by Tank Multani DO at OR [facility] N/A: Spine Thoracic YVROSE : SPINE 11/19/2016 4939-8539 / / [id number] Revision Post Implanted:Qty: 2 on 10/29/2015 by Tank Multani DO at OR [facility] N/A: Spine Thoracic MEDICREA [id number] / / Description:in set Screw Sterling Glenis 3 Ti Set - [id number] Implanted:Qty: 22 on 10/29/2015 by Tank Multani DO at OR [facility] N/A: Spine Thoracic YVROSE : SPINE [id number] / / Description:in set Screw Glenis Pa Ti 6.5x50mm - [id number] Implanted:Qty: 2 on 10/29/2015 by Tank Multani DO at OR [facility] N/A: Spine Thoracic YVROSE : SPINE [id number] / / Description:in set Screw Glenis Pa Ti 6.5x45mm - [id number] Implanted:Qty: 2 on 10/29/2015 by Tank Multani DO at OR [facility] N/A: Spine Thoracic YVROSE : SPINE [id number] / / Description:in set Screw Glenis Pa Ti 6.5x40mm - [id number] Implanted:Qty: 2 on 10/29/2015 by Tank Multani DO at OR [facility] N/A: Spine Thoracic YVROSE : SPINE [id number] / / Description:in set Screw Glenis Pa Ti 5.5x35mm - [id number] Implanted:Qty: 4 on 10/29/2015 by Tank Multani DO at OR [facility] N/A: Spine Thoracic YVROSE : SPINE [id number] / / Description:in set Glenis 5.5 X 30 Screw Implanted:Qty: 2 on 10/29/2015 by Tank Multani DO at OR [facility] N/A: Spine Thoracic YVROSE : SPINE [id number] / / Description:in set Glenis Large Laminar Hook Implanted:Qty: 2 on 10/29/2015 by Tank Multani DO at OR [facility] N/A: Spine Thoracic YVROSE [id number] / / Description:in set Glenis 2 Axel To Axel Connector Implanted:Qty: 4 on 10/29/2015 by Tank Multani DO at OR [facility] N/A: Spine Thoracic YVROSE [id number] / / Description:in set Axel Alloy [place] 3 Ti 5p018hj - [id number] Implanted:Qty: 2 on 10/29/2015 by Tank Multani DO at OR [facility] N/A: Spine Thoracic YVROSE : SPINE [id number] / / Description:in set Graft Infuse Bone Med [id number] - [id number] Implanted:Qty: 1 on 06/13/2017 by Janna Carcamo MD at OR [facility] N/A: Spine Thoracic [employer] : NEURO CARE 03/22/2019 [id number] / / [id number] Lateral Interbody Size [id number] Zero Degree Implanted:Qty: 1 on 06/13/2017 by Janna Carcamo MD at OR [facility] Left: Spine Thoracic [employer] 02/23/2022 6101-36726 10LP-G2 / / [id number] Lateral Interbody [id number] Zero Degree Implanted:Qty: 1 on 06/13/2017 by Janna Carcamo MD at OR [facility] N/A: Spine Thoracic [employer] 02/24/2021 6101-88794 10LP-G2 / / [id number] Graft Infuse Bone Lg 0993990 - [id number] Implanted:Qty: 1 on 06/16/2017 by Tank Multani DO at OR [facility] N/A: Back [employer] : NEURO CARE 09/20/2018 [id number] / / [id number] Screw Sterling Glenis 3 Ti Set - [id number] Implanted:Qty: 26 on 06/16/2017 by Tank Multani DO at OR [facility] N/A: Back YVROSE : SPINE 06/17/2017 [id number] / / Description:in set Axel Alloy Glenis 3 Ti 1d108pu - [id number] Implanted:Qty: 2 on 06/16/2017 by Tank Multani DO at OR [facility] N/A: Back YVROSE : SPINE 06/17/2017 [id number] / / Description:in set Glenis 2 Small Axel Conn Implanted:Qty: 4 on 06/16/2017 by Tank Multani DO at OR [facility] N/A: Back YVROSE 06/17/2017 [id number] / / Description:in set Screw Polyaxial Xia3 Ti 6x30mm - [id number] Implanted:Qty: 2 on 06/16/2017 by Tank Multani DO at OR [facility] N/A: Back YVROSE : SPINE 06/17/2017 [id number] / / Description:in set 5.0 X 30 Glenis Screw Implanted:Qty: 4 on 06/16/2017 by Tank Multani DO at OR [facility] N/A: Back YVROSE 06/17/2017 [id number] / / Description:in set 6.0 X 35 Musa Screw Implanted:Qty: 1 on 06/16/2017 by Tank Multani DO at OR [facility] N/A: Back YVROSE 06/17/2017 [id number] / / Description:in set 7.0 X 40 Musa Screw Implanted:Qty: 1 on 06/16/2017 by Tank Multani DO at OR [facility] N/A: Back YVROSE 06/17/2017 [id number] / / Description:in set 7.0 X 45 Musa Screw Implanted:Qty: 1 on 06/16/2017 by Tank Multani DO at OR [facility] N/A: Back YVROSE 06/17/2017 [id number] / / Description:in set 6.5 X 50 Musa Screw Implanted:Qty: 2 on 06/16/2017 by Tank Multani DO at OR [facility] N/A: Back YVROSE 06/17/2017 [id number] / / Description:in set 7.0 X 50 Musa Screw Implanted:Qty: 4 on 06/16/2017 by Tank Multani DO at OR [facility] N/A: Back YVROSE 06/17/2017 [id number] / / Description:in set Biocomposite Swivelock Suture [place] 5.5x22mm Implanted:Qty: 1 on 06/26/2018 by Brown Wall DO at OR [facility] Right: Shoulder 01/21/2020 AR-2323BCT -2 / / [id number] Prox Tenodesis Implant Syst - [id number] Implanted:Qty: 1 on 06/26/2018 by Brown Wall DO at OR [facility] Right: Shoulder [employer] 01/20/2023 AR-2290 / / [id number] Stent Vasc 3x15mm Intracranial St Latexfree Tip Wo Non - [id number] Implanted:Qty: 1 on 06/15/2023 by Andrzej Whitfield MD, PhD at OR [facility] YVROSE : NEUROVASCULAR 10/25/2026 [id number] 150 / / [id number] Description:right ica Stent Vasc 3x21mm Intracranial St Latexfree Tip Wo Non - [id number] Implanted:Qty: 1 on 06/15/2023 by Andrzej Whitfield MD, PhD at OR [facility] VYROSE : NEUROVASCULAR 05/31/2026 [id number] 210 / / [id number] Microcatheter 0.010in 2roh72nz Coil System Embztn Stretch - [id number] Implanted:Qty: 1 on 06/15/2023 by Andrzej Whitfield MD, PhD at OR [facility] [employer] [id number] 07/21/2023 7 110-0715 / / [id number] Microcatheter 0.010in 0yix89ai Coil System Emblztn Stretch - [id number] Implanted:Qty: 1 on 06/15/2023 by Andrzej Whitfield MD, PhD at OR [facility] [employer] [id number] 10/20/2026 7 110-0715 / / [id number] Microcatheter 0.010in 7fuf51dg Coil System [facility] Stretch - [id number] Implanted:Qty: 1 on 06/15/2023 by Andrzej Whitfield MD, PhD at OR [facility] [employer] [id number] 09/20/2027 7 110-0619 / / [id number] Microcatheter 0.010in 6ehd64ls Coil System [facility] Stretch - [id number] Implanted:Qty: 1 on 06/15/2023 by And[facility]zej [facility]field MD, [facility] [id number] 12/20/2026 7 110-0515 / / [id number] documented as of this encounter Advance Directives [...] Power of Attor katherine? No Care Teams Telecommunications Field Technician Relationship Specialty Start Date End Date Yesi Garcia MD [address] [place] [address] FRANCISCA Walsh [id number] PCP - General Family Medicine 10/27/21 documented as of this encounter
--- OUTSIDE RECORDS SUMMARY | 2024-03-29 00:18 | External Medical Summary ---
Author Name Unknown Address Unknown Organization K09:[facility] [place] [address] Laboratory Report Ordering Provider Test Date Status JESSICA MOON 03/05/2024 05:45:40 Final Observation Date Value Abnormality Reference (Units ) Status BUN 03/05/2024 05:45:40 24 Above high normal 6-20 (mg/dL) Final Creatinine 03/05/2024 05:45:40 0.8 0.6-1.2 (mg/dL) Final Glomerular filtration rate/1.73 sq M.predicted [Volume Rate/Area] in Serum, Plasma or Blood by Creatinine-based formula (CKD-EPI) 03/05/2024 05:45:40 90 >=60 (mL/min) Final eGFR is calculated based on the CKD-EPI 2020 equation. Sodium 03/05/2024 05:45:40 145 135-146 (m mol/L) Final Potassium 03/05/2024 05:45:40 4.1 3.5-5.1 (m mol/L) Final Cl 03/05/2024 05:45:40 107 98-107 (mm ol/L) Final CO2 03/05/2024 05:45:40 27 22-32 (mmo l/L) Final Anion gap 03/05/2024 05:45:40 11 7-15 (mmol /L) Final Glucose 03/05/2024 05:45:40 93 70-120 (mg /dL) Final Calcium 03/05/2024 05:45:40 9.9 8.4-10.2 ( mg/dL) Final Performing Location [facility] [place] [address]
--- OUTSIDE RECORDS SUMMARY | 2024-03-29 00:18 | External Medical Summary ---
Author Name Unknown Address Unknown Organization K09:[facility] [place] [address] Laboratory Report Ordering Provider Test Date Status JESSICA MOON 03/05/2024 05:45:40 Final Observation Date Value Abnormality Reference (Units ) Status WBC, Total 03/05/2024 05:45:40 4.08 4.00-10.8 0 (K/uL) Final RBC 03/05/2024 05:45:40 3.99 4.50-5.25 (M/uL) Final Hemoglobin 03/05/2024 05:45:40 12.3 Below low normal 14 .0-16.8 (g/dL) Final HCT 03/05/2024 05:45:40 37.7 Below low normal 40. 0-48.4 (%) Final MCV 03/05/2024 05:45:40 94.5 82.0-99.5 (fL) Final MCH 03/05/2024 05:45:40 30.8 27.0-34.0 (pg) Final MCHC 03/05/2024 05:45:40 32.6 32.0-36.0 (g/dL) Final RDW 03/05/2024 05:45:40 14.0 11.5-15.5 (%) Final Platelets 03/05/2024 05:45:40 171 140-400 (K /uL) Final MPV 03/05/2024 05:45:40 12.4 6.6-11.1 ( fL) Final Performing Location [facility] [place] [address]
--- OUTSIDE RECORDS SUMMARY | 2024-03-29 00:18 | External Medical Summary | Summary of Care ---
Author Name Unknown Organization [facility] Address [address] [facility] [place] [address] Phone [phone] Care Team Providers Care Electrical Engineering Manager Name Role Phone Yesi Garcia MD Primary Care Prov ider Encounter Details Date Type Department Care Team (Late st Contact Info) Description 03/06/2024 Population Health External Data Unspecified Department Allergies Active Allergy Reactions Criticality Noted Date Comments Lisinopril Cough Low 10/27/2021 documented as of this encounter (statuses as of 03/07/2024) Medications Medication Sig Dispensed Refills Start Date End Date Status Glucose Blood (ONETOUCH VERIO) STRP Test blood sugar once daily; dxE11.9 100 Strip 3 08/03/2019 Active Lancets (ONETOUCH DELICA PLUS [id number]) MISC Test blood sugar once daily; dxE11.9 [...] as of this encounter (statuses as of 03/07/2024) Active Problems Problem Noted Date Diagnosed Date [...] 03/31/2011 Overview: CONNOR x3 in 02/2011 at [facility] Dyslipidemia, goal LDL below 70 [...] as of this encounter (statuses as of 03/07/2024) Resolved Problems Problem Noted Date Diagnosed Date Resolved Date Major depressive disorder, s phillip episode, mild 09/28/2023 10/11/2023 Other psoriasis 12/30/2020 08/14/2022 Opioid dependence, uncomplicated 12/22/2018 12/22/2018 Opioid dependence, uncomplicated 07/11/2017 07/27/2017 Acute blood loss anemia 06/17/201705/24 Pneumothorax, left 06/17/2017 8 Moderate malnutrition 06/15/20172017 Reactive depression (situational) 07/02/2014 07/05/2019 coronary artery disease 03/15/201105/2010 Overview: [facility]--+troponin-unstable angina, s/p stenting coronary artery disease 03/15/201112/22 Overview: [facility]--unstable angina s/p stenting Other tenosynovitis [...] as of this encounter (statuses as of 03/07/2024) Immunizations Name Administration Dates Next Due COVID-19 [...] (15 years old or older) No 12/07/19 24 Cognitive Status Response Date of Assessm ent Because of a physical, menta l, or emotional condition, do you have serious difficulty concentrating, remembering, or making decisions? (5 years old or older) No 12/07/2023 documented as of this encounter Plan of Treatment Upcoming Encounters Date Type Department Care Team (Late st Contact Info) Description 03/27/2024 12:30 PM EST Office Visit Neurology [facility] [address] [place] [address] Marilia Leigh PA-C [address] [facility] [place] [address] 04/24/2024 11:30 AM EST Office Visit Cardiology [address] [place] [address] Emerson Hampton PA-C [address] [place] [address] 04/25/2024 1:30 PM EST Office Visit [facility], [facility] [address] [place] [address] Babita Tobin PA-C [address] [place] [address] 11/26/2024 1:00 PM EDT Nurse Only Ancillary [address] [place] [address] Kaylee, Nurse [address] [place] [address] 12/03/2024 4:00 PM EDT Telemedicine [facility] [place] [address] [place] [address] Andrzej Whitfield MD, PhD [address] [place] [address] Health Maintenance Due Date Last Done Comments Diabetic Foot Exam 11/18/2023 11/17/2022, 0 01/29/2022, 09/16/2020 Influenza Vaccine (FLU shot) (#1) 2024 03/22/2023, 01/29/2022, 03/23/2021, Additional history exists HbA1c 05/31/2024 11/29/2023, 0512/2023, 04/12/2023, Additional history exists Albumin/Creatinine Ratio 09/27/2024 024, 11/17/2022, 09/01/2021, Additional history exists Adult Wellness Visit 11/20/2024 11/21/2023, 11/17/2022, 10/16/2021, Additional history exists Depression Monitoring 11/20/2024 11/21/2023 GFR 03/05/2025 03/05/2024, 11/20, 06/27/2023, Additional history exists Diabetic Eye Exam 04/10/2025 [...] this encounter Medical Devices Implanted Type Area Ui Ux Developer Device Identifier Shelf Expiration Date Model / Serial / Lot Dbx 5cc [id number] - [id number] - [id number] Implanted:Qty: 1 on 06/13/2017 by Janna Carcamo MD at OR [facility] Tissue - Human Left: Spine Thoracic MUSCULOSKELETAL TRANSPLANT FND 10/28/2018 [id number] / [id number] / Chip Cancellous 90cc [id number] - [id number] - [id number] Implanted:Qty: 1 on 06/16/2017 by Tank Multani DO at OR [facility] Tissue - Human N/A: Back MUSCULOSKELETAL TRANSPLANT FND 02/22/2018 036009 / [id number] / Vitoss Bimodal Foam Pack 10cc - [id number] Implanted:Qty: 6 on 10/29/2015 by Tank Multani DO at OR [facility] N/A: Spine Thoracic YVROSE : SPINE 11/19/2016 [id number] / / [id number] Revision Post Implanted:Qty: 2 on 10/29/2015 by Tank Multani DO at OR [facility] N/A: Spine Thoracic [employer] [id number] / / Description:in set Screw Sterling Glenis 3 Ti Set - [id number] Implanted:Qty: 22 on 10/29/2015 by Tank Multani DO at OR [facility] N/A: Spine Thoracic YVROSE : SPINE [id number] / / Description:in set Screw Glenis Pa Ti 6.5x50mm - [id number] Implanted:Qty: 2 on 10/29/2015 by Tank Multani DO at OR [facility] N/A: Spine Thoracic YVROSE : SPINE [id number] / / Description:in set Screw Glenis Pa Ti 6.5x45mm - [id number] Implanted:Qty: 2 on 10/29/2015 by Tank Multani DO at OR [facility] N/A: Spine Thoracic YVROSE : SPINE [id number] / / Description:in set Screw Glenis Pa Ti 6.5x40mm - [id number] Implanted:Qty: 2 on 10/29/2015 by Tank Multani DO at OR [facility] N/A: Spine Thoracic YVROSE : SPINE [id number] / / Description:in set Screw Glenis Pa Ti 5.5x35mm - [id number] Implanted:Qty: 4 on 10/29/2015 by Tank Multani DO at OR [facility] N/A: Spine Thoracic YVROSE : SPINE [id number] / / Description:in set Glenis 5.5 X 30 Screw Implanted:Qty: 2 on 10/29/2015 by Tank Multani DO at OR [facility] N/A: Spine Thoracic YVROSE : SPINE [id number] / / Description:in set Glenis Large Laminar Hook Implanted:Qty: 2 on 10/29/2015 by Tank Multain DO at OR [facility] N/A: Spine Thoracic YVROSE [id number] / / Description:in set Glenis 2 Axel To Axel Connector Implanted:Qty: 4 on 10/29/2015 by Tank Multani DO at OR [facility] N/A: Spine Thoracic YVROSE [id number] / / Description:in set Axel Alloy Glenis 3 Ti [id number] - [id number] Implanted:Qty: 2 on 10/29/2015 by Tank Multani DO at OR [facility] N/A: Spine Thoracic [employer]VROSE : SPINE [id number] / / Description:in set Graft Infuse Bone Med [id number] - [id number] Implanted:Qty: 1 on 06/13/2017 by Janna Carcamo MD at OR [facility] N/A: Spine Thoracic [employer] : NEURO CARE 03/22/2019 [id number] / / [id number] Lateral Interbody Size [id number] Zero Degree Implanted:Qty: 1 on 06/13/2017 by Janna Carcamo MD at OR [facility] Left: Spine Thoracic [employer] 02/23/2022 [id number] 10-G2 / / [id number] Lateral Interbody [id number] Zero Degree Implanted:Qty: 1 on 06/13/2017 by Janna Carcamo MD at OR [facility] N/A: Spine Thoracic [employer] 02/24/2021 [id number] [place] [address] / / [id number] Graft Infuse Bone Lg [id number] - [id number] Implanted:Qty: 1 on 06/16/2017 by Tank Multani DO at OR [facility] N/A: Back [employer] : NEURO CARE 09/20/2018 [id number] / / [id number] Screw Sterling Glenis 3 Ti Set - [id number] Implanted:Qty: 26 on 06/16/2017 by Tank Multani DO at OR [facility] N/A: Back YVROSE : SPINE 06/17/2017 [id number] / / Description:in set Axel Alloy Glenis 3 Ti 1g890lw - [id number] Implanted:Qty: 2 on 06/16/2017 by Tank Multani DO at OR [facility] N/A: Back YVROSE : SPINE 06/17/2017 [id number] / / Description:in set Glenis 2 Small Axel Conn Implanted:Qty: 4 on 06/16/2017 by Tank Multani DO at OR [facility] N/A: Back YVROSE 06/17/2017 [id number] / / Description:in set Screw Polyaxial Xia3 Ti 6x30mm - [id number] Implanted:Qty: 2 on 06/16/2017 by Tank Multani DO at OR [facility] N/A: Back YVROSE : SPINE 06/17/2017 [id number] / / Description:in set 5.0 X 30 Glenis Screw Implanted:Qty: 4 on 06/16/2017 by Tank Multani DO at OR [facility] N/A: Back YVROSE 06/17/2017 [id number] / / Description:in set 6.0 X 35 Musa Screw Implanted:Qty: 1 on 06/16/2017 by Tank Multani DO at OR [facility] N/A: Back YVROSE 06/17/2017 [id number] / / Description:in set 7.0 X 40 Musa Screw Implanted:Qty: 1 on 06/16/2017 by Tank Multani DO at OR [facility] N/A: Back YVROSE 06/17/2017 [id number] / / Description:in set 7.0 X 45 Musa Screw Implanted:Qty: 1 on 06/16/2017 by Tank Multani DO at OR [facility] N/A: Back YVROSE 06/17/2017 [id number] / / Description:in set 6.5 X 50 Musa Screw Implanted:Qty: 2 on 06/16/2017 by Tank Multani DO at OR [facility] N/A: Back YVROSE 06/17/2017 [id number] / / Description:in set 7.0 X 50 Musa Screw Implanted:Qty: 4 on 06/16/2017 by Tank Multani DO at OR [facility] N/A: Back YVROSE 06/17/2017 [id number] / / Description:in set Biocomposite Swivelock Suture [place] 5.5x22mm Implanted:Qty: 1 on 06/26/2018 by Brown Wall DO at OR [facility] Right: Shoulder 01/21/2020 [id number] -2 / / [id number] Prox Tenodesis Implant Syst - [id number] Implanted:Qty: 1 on 06/26/2018 by Brown Wall DO at OR [facility] Right: Shoulder [employer] 01/20/2023 AR-2290 / / [id number] Stent Vasc 3x15mm Intracranial St Latexfree Tip Wo Non - [id number] Implanted:Qty: 1 on 06/15/2023 by Andrzej Whitfield MD, PhD at OR [facility] YVROSE : NEUROVASCULAR 10/25/2026 [id number] / / [id number] Description:right ica Stent Vasc 3x21mm Intracranial St Latexfree Tip Wo Non - [id number] Implanted:Qty: 1 on 06/15/2023 by Andrzej Whitfield MD, PhD at OR [facility] YVROSE : NEUROVASCULAR 05/31/2026 [id number] / / [id number] Microcatheter 0.010in [id number] Coil System Emblztn Stretch - [id number] Implanted:Qty: 1 on 06/15/2023 by Andrzej Whitfield MD, PhD at OR [facility] [employer] [id number] 07/21/2023 7 110-0715 / / [id number] Microcatheter 0.010in 9uhz17pm Coil System Emblztn Stretch - [id number] Implanted:Qty: 1 on 06/15/2023 by Andrzej Whitfield MD, PhD at OR [facility] [employer] [id number] 10/20/2026 7 110-0715 / / [id number] Microcatheter 0.010in [id number] Coil System Emblztn Stretch - [id number] Implanted:Qty: 1 on 06/15/2023 by [facility] [id number] 09/20/2027 7 110-0619 / / [id number] Microcatheter 0.010in [id number] Coil System Emblztn Stretch - [id number] Implanted:Qty: 1 on 06/15/2023 by Andrzej Whitfield MD, PhD [facility] [id number] 12/20/2026 7 110-0515 / / [id number] documented as of this encounter Advance Directives [...] Power of Attor katherine? No Care Teams Electrical Engineering Manager Relationship Specialty Start Date End Date Yesi Garcia MD [address] [place] [address] [place] [phone] PCP - General Family Medicine 10/27/21 documented as of this encounter
[2024-03-29] MEDS: PIPERACILLIN/TAZOBACTAM 4.5 GM/100 ML BAG IV SCH (00:46)
[2024-03-29 04:33] LABS: iSTAT Art Bld Gas pCO2 Correct 29 mmHg (35-46); iSTAT Art Bld Gas pH Corrected 7.517 (7.35-7.45); iSTAT Arterial Blood Gas HCO3 23 meg/L (19-24); iSTAT Arterial Blood Gas pCO2 28 mmHg (35-46); iSTAT Arterial Blood Gas pH 7.53 (7.35-7.45); iSTAT Arterial Blood Gas pO2 198 mmHg (80-95); iSTAT Arterial Blood Gas pO2 C 202; iSTAT Carbon Dioxide 24 mmol/L (24-31); iSTAT FiO2 40 %; iSTAT Hematocrit 31 % (42-52); iSTAT Hemoglobin 10.5 g/dl (14.0-18.0); iSTAT Potassium 2.9 mmol/L (3.3-5.0); iSTAT Sample Type Arterial; iSTAT Site L Brachial; iSTAT Sodium 139 mmol/L (135-144); iSTAT SpO2 99
[2024-03-29 05:23] LABS: Basophils # (auto) 0.01 K/uL (0.00-0.20); Basophils % (auto) 0.1 %; Eosinophils # (auto) 0.03 K/uL (0.00-0.50); Eosinophils % (auto) 0.4 %; Hematocrit (blood only) 31.3 % (42.0-52.0); Hemoglobin 10.8 g/dl (14.0-18.0); Immature Granulocytes # (auto) 0.04 K/uL (0.01-0.20); Immature Granulocytes % (auto) 0.6 %; Lymphocytes # (auto) 0.48 K/uL (1.20-3.40); Lymphocytes % (auto) 7.2 %; Mean Corpuscular Hemoglobin 29.8 pg (25.0-34.0); Mean Corpuscular Hgb Conc 34.5 g/dL (32.0-36.0); Mean Corpuscular Volume 86.2 fL (80.0-100.0); Mean Platelet Volume 12.6 fL (9.4-12.4); Monocytes # (auto) 0.78 K/uL (0.11-0.59); Monocytes % (auto) 11.6 %; Neutrophils # (auto) 5.37 K/uL (1.40-6.50); Neutrophils % (auto) 80.1 %; Platelet Count 160 K/uL (130-400); RDW Standard Deviation 44.3 fL (36.4-46.3); Red Blood Count 3.63 M/uL (4.70-6.10); White Blood Count 6.71 K/ul (4.8-10.8)
[2024-03-29 05:56] LABS: Albumin Globulin Ratio 1.5 (0.9-2); Albumin Level 3.2 gm/dl (3.4-5.0); BUN Creatinine Ratio 15.9 (10-20); Bilirubin,Total 0.8 mg/dl (0.2-1.0); Calcium 8.6 mg/dl (8.6-10.3); Creatinine Clr Calc Pharmacy 10.9 ml/min; Globulin 2.2 gm/dl (2.5-4.0); Magnesium 1.7 mg/dl (1.7-2.4); Phosphorus 3.9 mg/dl (2.5-4.9); Potassium 3.1 mmol/L (3.5-5.1); Total Protein 5.4 gm/dl (6.0-8.3)
[2024-03-29] MEDS ORDERED: levETIRAcetam 500 MG/5 ML VIAL IV STA (07:14)
--- NOTE | 2024-03-29 08:09 | Nephrology Consultation ---
Date of Consultation March 29, 2024 Assessment & Plan (1) Acute renal failure: stage 3 nonoliguric PETTY w/ significant hypokalemia of ? cause. K dropped since admission >> related to acid/base shifts and both K, pH being corrected. -given obligate IV con at admission at risk to worsen >> increase IVF rate to 200 mL/hr as tolerated x 6 hrs then back to 125 mL / hr; so ordered -trend CK >> added to am labs -strict I/O -no indication for dialysis discussion currently -repeat bmp, VBG after K riders complete >> order in for 1700 Care coordinated via TText w/ Dr Randolph re IVF rate, f/u labs, no need for dialysis; we are in agreement. History of Present Illness Reason for Consultation: PETTY Requesting Physician: Dr Nash Attending Physician: Faustino Treviño MD History of Present Illness 78 y/o M whom I'm asked to see for PETTY was admitted to the ICU last evening for VDRF, PETTY after being found unresponsive at home. PMH CAD s/p CONNOR , HTN, recent stroke and s/p anterior communicating artery coil, EtOH dependence, prediabetes, chronic anemia. Admitted here 02/25/2024- 03/04/2024 for acute to subacute CVA, alcohol withdrawal. After admission pt completed acute rehab; despite this progressive generalized weakness over past 2 wks and pt found on floor x 4 in this timeframe by family. Pt living out of one cluttered room, defecating/micturating in a bucket. Pt family unclear whether he's taking any meds since hospital d/c or using EtOH this timeframe. Day prior to admission AM family found pt on floor next to couch breathing normally w/ open eyes but otherwise unresponsive; EMS intubated pt in the field. So pt down for up to 24 hrs. Code status on admission per family is to continue supportive care for several days at current level (intubation/ventilation) but no CPR, no defibrillation. His baseline creatinine is 0.8 at d/c last month; presenting creatinine was 5.9, 5.6 this am. Presenting K 4.3, but dropped to 3.1 this AM. anion gap 17 on presentation, to 12 today. bicarb wnl; pH on blood gases variable on vent. CK on presentation 1156. Presenting lactate 2.6 > 1.3. Blood, protein, ketones in presenting urine, sg 1022. Full tox screen pending but ASA, acetaminophen negative; +benzos (not charted as given this admission). He had IV contrast for obligate CT neck/chest. He was started on D5W w/ K riders as well as zosyn, keppra. He is 120 ML + for charted fluid balance and has made 580 mL urine. Plan for today is change to plasmalyte at 100 mL hourly, cont K riders, and EEG > he withdraws to painful stimuli but not very responsive otherwise. Also per RN some question of myoclonic jerking. Plan is to keep him intubated at least one more day. Allergies Allergy/AdvReac Type Severity Reaction Status Date / Time lisinopril AdvReac Mild Cough Verified 02/25/24 02:25 Home Medications Medication Instructions Recorded Confirmed Type clobetasol 0.05 % topical cream 1 appln topical DAILY PRN Skin 01/12/19 03/28/24 History Irritation gabapentin 600 mg tablet 600 mg PO QID 01/12/19 03/28/24 History sildenafil 100 mg tablet 100 mg PO UD PRN Sexual Activity 02/01/19 03/28/24 History amlodipine 5 mg tablet 5 mg PO QAM 12/21/22 03/28/24 History cyanocobalamin (vitamin B-12) 1,000 mcg PO QAM 12/21/22 03/28/24 History 1,000 mcg tablet famotidine 20 mg tablet 20 mg PO UD 12/21/22 03/28/24 History hydrochlorothiazide 25 mg tablet 25 mg PO UD 12/21/22 03/28/24 History hydrochlorothiazide 50 mg tablet 50 mg PO UD 12/21/22 03/28/24 History losartan 100 mg tablet 100 mg PO QAM 12/21/22 03/28/24 History metformin 500 mg tablet 500 mg PO BID 12/21/22 03/28/24 History acetaminophen 650 mg 650 mg PO Q12H 02/25/24 03/28/24 History tablet,extended release (Arthritis Pain Relief (acetaminophen) ER) baclofen 20 mg tablet 20 mg PO BID 02/25/24 03/28/24 History duloxetine 60 mg capsule,delayed 60 mg PO QAM 02/25/24 03/28/24 History release aspirin 81 mg tablet,delayed 81 mg PO QAM #30 tabs 03/04/24 03/28/24 Rx release folic acid 1 mg tablet 1 mg PO QAM #30 tabs 03/04/24 03/28/24 Rx metoprolol tartrate 25 mg tablet 25 mg PO BID #30 tabs 03/04/24 03/28/24 Rx multivitamin with folic acid 400 1 tab PO QAM #30 tabs 03/04/24 03/28/24 Rx mcg tablet (Daily-Juani (with folic acid)) rosuvastatin 40 mg tablet (Crestor) 40 mg PO DAILY #30 tabs 03/04/24 03/28/24 Rx thiamine HCl (vitamin B1) 100 mg 100 mg PO QAM #30 tabs 03/04/24 03/28/24 Rx tablet clopidogrel 75 mg tablet 75 mg PO DAILY 03/28/24 03/28/24 History diclofenac sodium 1 % topical gel 2 g topical QID 03/28/24 03/28/24 History oxycodone 5 mg capsule 5 mg PO UD PRN pain 03/28/24 03/28/24 History Patient History Medical History History of ETOH abuse Osteoarthritis of left knee Medical marijuana use Gout Neuropathy of both feet Hyperlipidemia Surgical History History of repair of right rotator cuff History of decompression of ulnar nerve right Status post trigger finger release History of carpal tunnel release of both wrists History of spinal fusion x3--per pt from cervical to lumbar region, normal ROM History of colonoscopy History of hernia surgery History of tooth extraction History of heart artery stent 3 CONNOR placed 03/20/11 @ [facility] History of cardiac cath 03/20/11 @ [facility] with 3 CONNOR placed (pt states was on plavix taken off roughly 6 months ago)--follows with Emerson Hampton PA-C @ [facility] Family History Other No family history of adverse response to anesthesia Social History Smoking Status: Unknown if ever smoked Tobacco Type: Cigarettes Second Hand Exposure: Yes; Do You Dip or Chew Tobacco: No; Hx Alcohol Use: Yes Alcohol type: beer Hx Substance Use: Yes Last Used Substance: Unknown Last Used Substance Other:: last used medical marijuana card 3 months ago. Used marijuana once a week. Preferred Language: Prydeinig Communication Ability: Effective Sales Representative Printing Supplies Required: No Beliefs That Will Affect Care: Cultural Current Living Situation: Alone Feels Safe at Home: Yes Assistive Devices: Cane Review of Systems 2 Review of Systems: Unobtainable due to endotracheal tube Physical Exam 2 Constitutional: well developed, + thin and + mechanically ventilated; no acute distress ENMT: Mouth: + dry oral mucous membranes Respiratory: normal respiratory effort Auscultation: + diminished lung sounds Cardiovascular: Rate/Rhythm: regular rate and regular rhythm Extremities: n o edema Gastrointestinal (Abdomen): Inspection/Auscultation: normal bowel sounds P ercussion/Palpation: abdomen soft; abdomen nontender Skin: no rashes, warm and dry Neurologic: opens eyes, tracks slightly, no tremor/jerking Results & Data Vital Signs (Past 12 Hours) Vital Signs Temp Pulse Pulse Resp BP BP Pulse Ox 03/29/24 07:41 03/29/24 07:30 37.2 C 75 14 100 03/29/24 07:27 74 18 99 03/29/24 07:00 37.2 C 72 14 99 03/29/24 06:00 37.3 C 66 15 102/59 L 98 03/29/24 05:00 37.4 C 66 14 100/54 L 98 03/29/24 04:30 80 15 100 03/29/24 04:00 37.4 C 66 14 98/57 L 98 03/29/24 04:00 03/29/24 03:00 37.3 C 75 18 135/68 100 03/29/24 02:00 37.2 C 73 18 122/69 99 03/29/24 01:36 37.2 C 70 18 127/69 100 03/29/24 01:09 37.4 C 72 18 120/65 99 03/29/24 00:30 37.5 C 75 18 100 03/29/24 00:12 37.4 C 85 18 102/65 100 03/29/24 00:00 03/29/24 00:00 03/28/24 23:48 78 19 119/68 100 03/28/24 23:48 72 19 100 03/28/24 23:43 72 03/28/24 23:06 37.5 C 74 18 115/64 100 03/28/24 22:33 37.5 C 72 18 119/64 100 03/28/24 22:12 37.5 C 71 18 113/63 100 03/28/24 21:30 37.4 C 73 18 119/63 100 03/28/24 21:09 37.4 C 75 18 106/62 100 03/28/24 20:33 37.4 C 70 18 115/64 100 03/28/24 20:24 71 18 100 03/28/24 20:03 37.4 C 75 18 112/62 100 03/28/24 20:00 O2 Del Method FiO2 03/29/24 07:41 0.3 03/29/24 07:30 Mechanical Vent 0.3 03/29/24 07:27 30 03/29/24 07:00 03/29/24 06:00 Mechanical Vent 30 03/29/24 05:00 Mechanical Vent 30 03/29/24 04:30 30 03/29/24 04:00 Mechanical Vent 40 03/29/24 04:00 30 03/29/24 03:00 Mechanical Vent 40 03/29/24 02:00 Mechanical Vent 40 03/29/24 01:36 Mechanical Vent 03/29/24 01:09 Mechanical Vent 03/29/24 00:30 03/29/24 00:12 Mechanical Vent 03/29/24 00:00 Mechanical Vent 40 03/29/24 00:00 40 03/28/24 23:48 Mechanical Vent 03/28/24 23:48 40 03/28/24 23:43 03/28/24 23:06 Mechanical Vent 03/28/24 22:33 Mechanical Vent 03/28/24 22:12 Mechanical Vent 03/28/24 21:30 Mechanical Vent 03/28/24 21:09 Mechanical Vent 03/28/24 20:33 Mechanical Vent 03/28/24 20:24 40 03/28/24 20:03 Mechanical Vent 03/28/24 20:00 40 Laboratory Results 03/29/24 05:09 03/29/24 05:[address] head/neck w/ IV con 1. 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 2. Short segment high-grade stenosis versus occlusion involving a left M2 branch within the sylvian fissure is unchanged from the 02/25/2024 exam 3. 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 4. Endotracheal tube in place with moderate secretions within the airway and esophagus. Brain MRI Mild cerebral atrophy and periventricular white matter T2 hyperintensity consistent with chronic small vessel disease and/or senescent changes. No areas of diffusion restriction are seen to indicate acute stroke. Renal u/s unremarkable but for borderline splenomegaly CXR clear/ no acute process (image personally reviewed)
--- NOTE | 2024-03-29 08:36 | Critical Care Progress Note ---
Date of Service March 29, 2024 Assessment & Plan (1) Metabolic encephalopathy: (2) Acute renal failure: (3) HTN (hypertension): Plan Reason Critically Ill: 78-year-old male was brought in by the EMS as he was found to be unresponsive and subsequently intubated. Transferred to the ICU for further care Past medical history: Alcohol abuse, multiple strokes, coiling of the anterior cerebral artery, diabetes, lumbar radiculopathy Neuro - [facility]: Unable to assess Sedation -- Metabolic encephalopathy With questionable seizure/myoclonic-like activity Unsure if it is related to alcohol withdrawal CTA head/neck negative Brain MRI negative for acute stroke Tox screen was positive for benzodiazepine but he did get midazolam Alcohol negative Keppra loaded and started on 03/29/2024, follow-up EEG -- History of stroke 02/25/2024 Supposed to be on dual antiplatelet therapy aspirin and Plavix as well as Crestor 40 mg --History of alcohol abuse -- 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 Cardiac - -- Hypertension and dyslipidemia On amlodipine at home EKG 03/28/2024 1 PM: Normal sinus rhythm, normal axis, no ST-T wave changes appreciated 2D echo 10/11/2022: EF 60-65%, grade 1 diastolic dysfunction, mild concentric LVH, RV normal in size and function Respiratory - -- VDRF Likely secondary to protecting airway Continue with ventilatory support Keep RASS -1 Daily sedation holidays and SBT's GI - -- No acute issues RENAL/LYTES - -- Acute renal failure Baseline creatinine is 0.8 Likely prerenal Follow-up urine lites Avoid nephrotoxic medication -- Rhabdomyolysis CPK 1156 03/28/24 Continue with IV fluids ENDO - -- Diabetes type 2 Continue with ICU hypoglycemia protocol HEME - -- Normocytic anemia Monitor H&H ID - -- No clear source of infection Chest x-ray clean UA negative for leukocyte esterase or bacteria --Prophylaxis VTE:IPC GI:None Lines: Peripheral Diet: Tube feeds Plan: In/out: +120, urine output 580 mL Hypokalemia and magnesium being replaced Given the persistent myoclonic activity, Keppra added to the regimen, follow-up EEG Will load him with 1500 mg of Keppra and then 5 mg on a daily basis given the creatinine DC D5 water as patient will be started on tube feeds Start the patient on Plasma-Lyte 100 mL an hour. Patient has started to make urine hopefully his creatinine will go down The reason for encephalopathy is not clear, will add ammonia to his morning labs Patient would not want to have prolonged intubation. As per the patient as well as family he wants to be DNR/DNI but okay to continue with the current measures and if there is no improvement then no further escalation of care I have personally spent 37 minutes of critical care time in the direct management of this patient. This is a life/limb threatening event. This includes time spent evaluating patient, direct bedside care, chart review, placing orders, interpretation of diagnostic studies, discussion with consultants, patient, and family members, as well as other required patient management activities. This time is exclusive of all separately billable procedures, and teaching time and separate from and in addition to any other critical care service time. Admission and Anticipated Discharge Date Admission Date: March 28, 2024 Subjective Patient seen and examined at bedside. No acute distress, no adverse events overnight He was breathing with the vent. On trying pressure support he did have apneic episodes but on reminding him to breathe he does breathe He opens his eyes, does not track Still has some mild flickering movements of the left upper as well as left lower extremity. Has been afebrile Not on any sedation Review of Systems 2 Review of Systems: Unobtainable due to endotracheal tube Physical Exam 2 Physical Exam: Constitutional: No acute distress HEENT: PERRLA Respiratory system: Decreased air entry bilaterally, no wheeze, no rhonchi, positive crackles bilaterally CVS: S1-S2 positive, no murmurs or gallops Abdomen: Soft, nontender, nondistended, positive bowel sounds x4 Extremities: +2 pulses bilaterally radialis/ dorsalis pedis, no cyanosis, no edema Neuro: Intubated, sedated, positive cough, positive gag, moves extremities to pain Psych: Unable to assess G/U: Positive [place] Skin: no rashes, warm and dry Lymphatic: no cervical or axillary lymphadenopathy Results & Data Results & Data Vital Signs (Past 12 Hours) Vital Signs Temp Pulse Pulse Resp BP BP Pulse Ox 03/29/24 07:56 03/29/24 07:41 03/29/24 07:30 37.2 C 75 14 100 03/29/24 07:27 74 18 99 03/29/24 07:00 37.2 C 72 14 99 03/29/24 06:00 37.3 C 66 15 102/59 L 98 03/29/24 05:00 37.4 C 66 14 100/54 L 98 03/29/24 04:30 80 15 100 03/29/24 04:00 37.4 C 66 14 98/57 L 98 03/29/24 04:00 03/29/24 03:00 37.3 C 75 18 135/68 100 03/29/24 02:00 37.2 C 73 18 122/69 99 03/29/24 01:36 37.2 C 70 18 127/69 100 03/29/24 01:09 37.4 C 72 18 120/65 99 03/29/24 00:30 37.5 C 75 18 100 03/29/24 00:12 37.4 C 85 18 102/65 100 03/29/24 00:00 03/29/24 00:00 03/28/24 23:48 78 19 119/68 100 03/28/24 23:48 72 19 100 03/28/24 23:43 72 03/28/24 23:06 37.5 C 74 18 115/64 100 03/28/24 22:33 37.5 C 72 18 119/64 100 03/28/24 22:12 37.5 C 71 18 113/63 100 03/28/24 21:30 37.4 C 73 18 119/63 100 03/28/24 21:09 37.4 C 75 18 106/62 100 03/28/24 20:33 37.4 C 70 18 115/64 100 O2 Del Method FiO2 03/29/24 07:56 Mechanical Vent 0.3 03/29/24 07:41 0.3 03/29/24 07:30 Mechanical Vent 0.3 03/29/24 07:27 30 03/29/24 07:00 03/29/24 06:00 Mechanical Vent 30 03/29/24 05:00 Mechanical Vent 30 03/29/24 04:30 30 03/29/24 04:00 Mechanical Vent 40 03/29/24 04:00 30 03/29/24 03:00 Mechanical Vent 40 03/29/24 02:00 Mechanical Vent 40 03/29/24 01:36 Mechanical Vent 03/29/24 01:09 Mechanical Vent 03/29/24 00:30 03/29/24 00:12 Mechanical Vent 03/29/24 00:00 Mechanical Vent 40 03/29/24 00:00 40 03/28/24 23:48 Mechanical Vent 03/28/24 23:48 40 03/28/24 23:43 03/28/24 23:06 Mechanical Vent 03/28/24 22:33 Mechanical Vent 03/28/24 22:12 Mechanical Vent 03/28/24 21:30 Mechanical Vent 03/28/24 21:09 Mechanical Vent 03/28/24 20:33 Mechanical Vent Laboratory Results 03/29/24 05:09 03/29/24 05:09 Coding Level of Care Code 98733 CRITICAL CARE 1ST 30-74M Diagnoses Metabolic encephalopathy G93.41 Acute renal failure N17.9 HTN (hypertension) I10
--- NOTE | 2024-03-29 08:49 | XRay Report ---
EXAM: XR chest 1V portable CLINICAL HISTORY: RESP FAILURE JTF/TGB INPATIENT TECHNIQUE: X-ray of the chest, AP. COMPARISON: 01/18/2023 FINDINGS: No evidence of consolidation or collapse. The endotracheal tube is seen with its tip 5.0cm above the gordo, which is in a normal position. Normal configuration of the mediastinum. The leesa are normal in size and position. The cardiac size is normal. Costophrenic and cardiophrenic angles are clear. Intervention seen in the visualized spine. IMPRESSION: No evidence of consolidation or pleural effusion. The endotracheal tube is seen with its tip in a normal position. Electronically signed by Rip Campbell 03-29-2024 08:44 AM
--- NOTE | 2024-03-29 09:19 | Hospitalist Progress Note ---
Date of Service March 29, 2024 Assessment & Plan (1) Unresponsive: (2) Acute renal failure: (3) CVA (cerebral vascular accident): (4) History of ETOH abuse: (5) Coronary artery disease: (6) Diabetes mellitus, type 2: (7) HTN (hypertension): Plan: Unresponsive Acute metabolic encephalopathy Unclear etiology DD: Alcohol withdrawal, seizure activity, med overdose Patient is 78 year old male with PMH HTN, HLD, CAD, prediabetes, chronic anemia, alcohol use, CVA presented to ER as was found unresponsive lying on floor today. 02/2024 hospitalized with acute to subacute CVA, alcohol withdrawal and recommended aspirin, Plavix, Crestor. Per family patient likely not taking medications as mentioned he lost his medications. Patient intubated by EMS. CT Head: No acute intracranial findings. No change in appearance of the brain. 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 Exam mildly compromised given associated streak artifact. CTA Head & Neck: Streak artifact related to the aneurysm coils within the anterior communicating artery limits the study. Short segment high-grade stenosis versus occlusion involving a left M2 branch within the sylvian fissure is unchanged from the 02/25/2024 exam. 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 CXR: Endotracheal tube overlies the midline, 5.9 cm superior to the gordo. The lungs appear clear. No pneumothorax. Unclear etiology. Possible alcohol withdrawal, however unclear when patient last consumed. No clear source of infection ETOH negative. Urine drug screen positive benzodiazepines however did receive midazolam prior to urine collection Currently intubated Admitted ICU MRI brain- negative for acute stroke Further management per professor of german [place] loaded and started on 03/29/2024 PETTY BUN: 91,Cr: 5.8 Baseline ~0.8 Avoid nephrotoxic agent when possible Renal ultrasound - Slightly increased renal cortical echogenicity bilaterally is nonspecific but can be seen in renal insufficiency. No hydronephrosis or ureterolithiasis is seen. The urinary bladder is completely decompressed by a Poole catheter. Borderline splenomegaly. Nephrology consulted Rhabdomyolysis Frequent falls, ambulatory dysfunction CK elevated at 1,100 receiving IVF nephrology following History of CVA Previously prescribed aspirin, Plavix and rosuvastatin. Per family appears patient has not been taking History of alcohol abuse Recent hospitalization with treatment for alcohol withdrawal Patient prescribed gabapentin. Unclear if patient been taking Unclear when last EtOH consumed In ER EtOH level negative urine tox posit. for benzos (received midazolam on admission) HTN Prescribed amlodipine at home. Unclear if patient has been taking Dyslipidemia Prescribed rosuvastatin Prediabetes A1c: 5.8 in 02/2024 DVT Prophylaxis SCDs Dispo: ICU DNR/DNI as per discussion with pt's sister and niece. Wish to continue ventilation but would not want prolonged and would wish to re-evaluate in 2-3 days. Admission and Anticipated Discharge Date Admission Date: March 28, 2024 Subjective Pt seen in follow up - ICU intubated, as pt found unresponsive Recently hospitalized for cva and etoh withdrawal, then discharged to rehab. since then pt has been home. Currently able to open eyes, when asked Pt's sister is present at the bedside discussed in detail w/ RN at the bedside Review of Systems Review of Systems: Unobtainable due to cognitive status Physical Exam Physical Exam: General Appearance: slim M, intubated, NAD Head: normocephalic, Atraumatic Eyes: normal inspection Neck: supple Respiratory/Chest: Normal breath sounds, CTA Cardiovascular: S1, S2, No murmur Abdomen/GI:Soft, Bowel sounds present Extremities/Musculoskeletal:normal inspection, no edema Neurologic/Psych: opens eyes when asked Skin: normal color, warm Results & Data Results & Data Vital Signs (Past 12 Hours) Vital Signs Temp Pulse Pulse Resp BP BP Pulse Ox 03/29/24 07:56 03/29/24 07:41 03/29/24 07:30 37.2 C 75 14 100 03/29/24 07:27 74 18 99 03/29/24 07:00 37.2 C 72 14 99 03/29/24 06:00 37.3 C 66 15 102/59 L 98 03/29/24 05:00 37.4 C 66 14 100/54 L 98 03/29/24 04:30 80 15 100 03/29/24 04:00 37.4 C 66 14 98/57 L 98 03/29/24 04:00 03/29/24 03:00 37.3 C 75 18 135/68 100 03/29/24 02:00 37.2 C 73 18 122/69 99 03/29/24 01:36 37.2 C 70 18 127/69 100 03/29/24 01:09 37.4 C 72 18 120/65 99 03/29/24 00:30 37.5 C 75 18 100 03/29/24 00:12 37.4 C 85 18 102/65 100 03/29/24 00:00 03/29/24 00:00 03/28/24 23:48 78 19 119/68 100 03/28/24 23:48 72 19 100 03/28/24 23:43 72 03/28/24 23:06 37.5 C 74 18 115/64 100 03/28/24 22:33 37.5 C 72 18 119/64 100 03/28/24 22:12 37.5 C 71 18 113/63 100 03/28/24 21:30 37.4 C 73 18 119/63 100 O2 Del Method FiO2 03/29/24 07:56 Mechanical Vent 0.3 03/29/24 07:41 0.3 03/29/24 07:30 Mechanical Vent 0.3 03/29/24 07:27 30 03/29/24 07:00 03/29/24 06:00 Mechanical Vent 30 03/29/24 05:00 Mechanical Vent 30 03/29/24 04:30 30 03/29/24 04:00 Mechanical Vent 40 03/29/24 04:00 30 03/29/24 03:00 Mechanical Vent 40 03/29/24 02:00 Mechanical Vent 40 03/29/24 01:36 Mechanical Vent 03/29/24 01:09 Mechanical Vent 03/29/24 00:30 03/29/24 00:12 Mechanical Vent 03/29/24 00:00 Mechanical Vent 40 03/29/24 00:00 40 03/28/24 23:48 Mechanical Vent 03/28/24 23:48 40 03/28/24 23:43 03/28/24 23:06 Mechanical Vent 03/28/24 22:33 Mechanical Vent 03/28/24 22:12 Mechanical Vent 03/28/24 21:30 Mechanical Vent Laboratory Results 03/29/24 03/29/24 03/29/24 Range/Units 16:59 16:56 12:07 WBC (4.8-10.8) K/ul RBC (4.70-6.10) M/uL Hgb (14.0-18.0) g/dl POC Hgb (14.0-18.0) g/dl Hct (42.0-52.0) % POC Hct (42-52) % MCV (80.0-100.0) fL MCH (25.0-34.0) pg MCHC (32.0-36.0) g/dL RDW Std Deviation (36.4-46.3) fL RDW Coeff of Art (11.5-14.5) % Plt Count (130-400) K/uL MPV (9.4-12.4) fL Immature Gran % (Auto) % Neut % (Auto) % Lymph % (Auto) % [place] % (Auto) % Eos % (Auto) % Baso % (Auto) % Neut # (Auto) (1.40-6.50) K/uL Lymph # (Auto) (1.20-3.40) K/uL [place] # (Auto) (0.11-0.59) K/uL Eos # (Auto) (0.00-0.50) K/uL Baso # (Auto) (0.00-0.20) K/uL Immature Gran # (Auto) (0.01-0.20) K/uL Specimen Type Sample Site POC pH (7.35-7.45) POC pCO2 (35-46) mmHg POC pO2 (80-95) mmHg POC HCO3 (19-24) ijeoma/L POC Total CO2 (24-31) mmol/L POC Base Excess (-9-1.8) ijeoma/L O2 Sat Pulse Oximetry ABG pH (Temp Correct) (7.35-7.45) ABG pCO2 (Temp Corrct (35-46) mmHg POC ABG pO2 at Pt Temp POC ABG O2 Sat (90-95) % Mino Test VBG pH 7.42 H (7.36-7.41) VBG pCO2 38 (38-50) mmHg VBG pO2 67 mmHg VBG HCO3 25 mmol/L VBG O2 Saturation 94.8 % VBG Base Excess 0.3 mEq/L O2 Delivery Device Vent Mode POC FiO2 % End Tidal CO2 POC Sodium (135-144) mmol/L Sodium Pending (136-145) mmol/L POC Potassium (3.3-5.0) mmol/L Potassium Pending (3.5-5.1) mmol/L Chloride Pending (98-107) mmol/L Carbon Dioxide Pending (21-32) mmol/L Anion Gap Pending (3-11) BUN Pending (6-23) mg/dl Creatinine Pending (0.6-1.4) mg/dl Est Cr Clr Drug Dosing Pending ml/min eGFR Pending BUN/Creatinine Ratio Pending (10-20) Glucose Pending (70-99(Fasting)) mg/dl POC Glucose 121 H 135 H (70-99) mg/dl Calcium Pending (8.6-10.3) mg/dl Phosphorus (2.5-4.9) mg/dl Magnesium (1.7-2.4) mg/dl Total Bilirubin (0.2-1.0) mg/dl AST (13-39) U/L ALT (7-52) U/L Alkaline Phosphatase (34-104) U/L Ammonia (18-72) umol/L Total Creatine Kinase (30-223) U/L Total Protein (6.0-8.3) gm/dl Albumin (3.4-5.0) gm/dl Globulin (2.5-4.0) gm/dl Albumin/Globulin Ratio (0.9-2) TSH (0.300-4.500) uIu/ml Urine Osmolality (500-800) mOsm/kg Ur Random Creatinine mg/dl Ur Random Sodium mmol/L Ur Random Potassium mmol/L Ur Random Chloride mmol/L Nasal Screen MRSA (PCR) (Negative) 03/29/24 03/29/24 03/29/24 Range/Units 10:23 10:20 05:09 WBC 6.71 (4.8-10.8) K/ul RBC 3.63 L (4.70-6.10) M/uL Hgb 10.8 L (14.0-18.0) g/dl POC Hgb (14.0-18.0) g/dl Hct 31.3 L (42.0-52.0) % POC Hct (42-52) % MCV 86.2 (80.0-100.0) fL MCH 29.8 (25.0-34.0) pg MCHC 34.5 (32.0-36.0) g/dL RDW Std Deviation 44.3 (36.4-46.3) fL RDW Coeff of Art 14.0 (11.5-14.5) % Plt Count 160 (130-400) K/uL MPV 12.6 H (9.4-12.4) fL Immature Gran % (Auto) 0.6 % Neut % (Auto) 80.1 % Lymph % (Auto) 7.2 % [place] % (Auto) 11.6 % Eos % (Auto) 0.4 % Baso % (Auto) 0.1 % Neut # (Auto) 5.37 (1.40-6.50) K/uL Lymph # (Auto) 0.48 L (1.20-3.40) K/uL [place] # (Auto) 0.78 H (0.11-0.59) K/uL Eos # (Auto) 0.03 (0.00-0.50) K/uL Baso # (Auto) 0.01 (0.00-0.20) K/uL Immature Gran # (Auto) 0.04 (0.01-0.20) K/uL Specimen Type Sample Site POC pH (7.35-7.45) POC pCO2 (35-46) mmHg POC pO2 (80-95) mmHg POC HCO3 (19-24) ijeoma/L POC Total CO2 (24-31) mmol/L POC Base Excess (-9-1.8) ijeoma/L O2 Sat Pulse Oximetry ABG pH (Temp Correct) (7.35-7.45) ABG pCO2 (Temp Corrct (35-46) mmHg POC ABG pO2 at Pt Temp POC ABG O2 Sat (90-95) % Mino Test VBG pH (7.36-7.41) VBG pCO2 (38-50) mmHg VBG pO2 mmHg VBG HCO3 mmol/L VBG O2 Saturation % VBG Base Excess mEq/L O2 Delivery Device Vent Mode POC FiO2 % End Tidal CO2 POC Sodium (135-144) mmol/L Sodium 140 (136-145) mmol/L POC Potassium (3.3-5.0) mmol/L Potassium 3.1 L (3.5-5.1) mmol/L Chloride 104 (98-107) mmol/L Carbon Dioxide 24 (21-32) mmol/L Anion Gap 12 H (3-11) BUN 89 H (6-23) mg/dl Creatinine 5.58 H* (0.6-1.4) mg/dl Est Cr Clr Drug Dosing 10.9 ml/min eGFR 9.85 BUN/Creatinine Ratio 15.9 (10-20) Glucose 148 H (70-99(Fasting)) mg/dl POC Glucose (70-99) mg/dl Calcium 8.6 (8.6-10.3) mg/dl Phosphorus 3.9 (2.5-4.9) mg/dl Magnesium 1.7 (1.7-2.4) mg/dl Total Bilirubin 0.8 (0.2-1.0) mg/dl AST 24 (13-39) U/L ALT 17 (7-52) U/L Alkaline Phosphatase 49 (34-104) U/L Ammonia 32.0 (18-72) umol/L Total Creatine Kinase 654 H 842 H (30-223) U/L Total Protein 5.4 L (6.0-8.3) gm/dl Albumin 3.2 L (3.4-5.0) gm/dl Globulin 2.2 L (2.5-4.0) gm/dl Albumin/Globulin Ratio 1.5 (0.9-2) TSH (0.300-4.500) uIu/ml Urine Osmolality (500-800) mOsm/kg Ur Random Creatinine mg/dl Ur Random Sodium mmol/L Ur Random Potassium mmol/L Ur Random Chloride mmol/L Nasal Screen MRSA (PCR) (Negative) 03/29/24 03/28/24 03/28/24 Range/Units 04:18 Unknown 21:40 WBC (4.8-10.8) K/ul RBC (4.70-6.10) M/uL Hgb (14.0-18.0) g/dl POC Hgb 10.5 L (14.0-18.0) g/dl Hct (42.0-52.0) % POC Hct 31 L (42-52) % MCV (80.0-100.0) fL MCH (25.0-34.0) pg MCHC (32.0-36.0) g/dL RDW Std Deviation (36.4-46.3) fL RDW Coeff of Art (11.5-14.5) % Plt Count (130-400) K/uL MPV (9.4-12.4) fL Immature Gran % (Auto) % Neut % (Auto) % Lymph % (Auto) % [place] % (Auto) % Eos % (Auto) % Baso % (Auto) % Neut # (Auto) (1.40-6.50) K/uL Lymph # (Auto) (1.20-3.40) K/uL [place] # (Auto) (0.11-0.59) K/uL Eos # (Auto) (0.00-0.50) K/uL Baso # (Auto) (0.00-0.20) K/uL Immature Gran # (Auto) (0.01-0.20) K/uL Specimen Type Arterial Sample Site L Brachial POC pH 7.53 H* (7.35-7.45) POC pCO2 28 L (35-46) mmHg POC pO2 198 H (80-95) mmHg POC HCO3 23 (19-24) ijeoma/L POC Total CO2 24 (24-31) mmol/L POC Base Excess 0.0 (-9-1.8) ijeoma/L O2 Sat Pulse Oximetry 99 ABG pH (Temp Correct) 7.517 H* (7.35-7.45) ABG pCO2 (Temp Corrct 29 L (35-46) mmHg POC ABG pO2 at Pt Temp 202 POC ABG O2 Sat 100.0 H (90-95) % Mino Test NA VBG pH (7.36-7.41) VBG pCO2 (38-50) mmHg VBG pO2 mmHg VBG HCO3 mmol/L VBG O2 Saturation % VBG Base Excess mEq/L O2 Delivery Device Ventilator Vent Mode AC POC FiO2 40 % End Tidal CO2 24 POC Sodium 139 (135-144) mmol/L Sodium (136-145) mmol/L POC Potassium 2.9 L (3.3-5.0) mmol/L Potassium (3.5-5.1) mmol/L Chloride (98-107) mmol/L Carbon Dioxide (21-32) mmol/L Anion Gap (3-11) BUN (6-23) mg/dl Creatinine (0.6-1.4) mg/dl Est Cr Clr Drug Dosing ml/min eGFR BUN/Creatinine Ratio (10-20) Glucose (70-99(Fasting)) mg/dl POC Glucose 93 (70-99) mg/dl Calcium (8.6-10.3) mg/dl Phosphorus (2.5-4.9) mg/dl Magnesium (1.7-2.4) mg/dl Total Bilirubin (0.2-1.0) mg/dl AST (13-39) U/L ALT (7-52) U/L Alkaline Phosphatase (34-104) U/L Ammonia (18-72) umol/L Total Creatine Kinase (30-223) U/L Total Protein (6.0-8.3) gm/dl Albumin (3.4-5.0) gm/dl Globulin (2.5-4.0) gm/dl Albumin/Globulin Ratio (0.9-2) TSH (0.300-4.500) uIu/ml Urine Osmolality 361 L (500-800) mOsm/kg Ur Random Creatinine 79.4 mg/dl Ur Random Sodium 43 mmol/L Ur Random Potassium 28.3 mmol/L Ur Random Chloride 44 mmol/L Nasal Screen MRSA (PCR) (Negative) 03/28/24 03/28/24 03/28/24 Range/Units 21:16 20:45 20:39 WBC (4.8-10.8) K/ul RBC (4.70-6.10) M/uL Hgb (14.0-18.0) g/dl POC Hgb (14.0-18.0) g/dl Hct (42.0-52.0) % POC Hct (42-52) % MCV (80.0-100.0) fL MCH (25.0-34.0) pg MCHC (32.0-36.0) g/dL RDW Std Deviation (36.4-46.3) fL RDW Coeff of Art (11.5-14.5) % Plt Count (130-400) K/uL MPV (9.4-12.4) fL Immature Gran % (Auto) % Neut % (Auto) % Lymph % (Auto) % [place] % (Auto) % Eos % (Auto) % Baso % (Auto) % Neut # (Auto) (1.40-6.50) K/uL Lymph # (Auto) (1.20-3.40) K/uL [place] # (Auto) (0.11-0.59) K/uL Eos # (Auto) (0.00-0.50) K/uL Baso # (Auto) (0.00-0.20) K/uL Immature Gran # (Auto) (0.01-0.20) K/uL Specimen Type Sample Site POC pH (7.35-7.45) POC pCO2 (35-46) mmHg POC pO2 (80-95) mmHg POC HCO3 (19-24) ijeoma/L POC Total CO2 (24-31) mmol/L POC Base Excess (-9-1.8) ijeoma/L O2 Sat Pulse Oximetry ABG pH (Temp Correct) (7.35-7.45) ABG pCO2 (Temp Corrct (35-46) mmHg POC ABG pO2 at Pt Temp POC ABG O2 Sat (90-95) % Mino Test VBG pH (7.36-7.41) VBG pCO2 (38-50) mmHg VBG pO2 mmHg VBG HCO3 mmol/L VBG O2 Saturation % VBG Base Excess mEq/L O2 Delivery Device Vent Mode POC FiO2 % End Tidal CO2 POC Sodium (135-144) mmol/L Sodium 144 (136-145) mmol/L POC Potassium (3.3-5.0) mmol/L Potassium 3.6 (3.5-5.1) mmol/L Chloride 104 (98-107) mmol/L Carbon Dioxide 23 (21-32) mmol/L Anion Gap 17 H (3-11) BUN 91 H (6-23) mg/dl Creatinine 5.79 H* (0.6-1.4) mg/dl Est Cr Clr Drug Dosing 10.5 ml/min eGFR 9.42 BUN/Creatinine Ratio 15.7 (10-20) Glucose 89 (70-99(Fasting)) mg/dl POC Glucose 63 L* 58 L* (70-99) mg/dl Calcium 9.0 (8.6-10.3) mg/dl Phosphorus (2.5-4.9) mg/dl Magnesium (1.7-2.4) mg/dl Total Bilirubin (0.2-1.0) mg/dl AST (13-39) U/L ALT (7-52) U/L Alkaline Phosphatase (34-104) U/L Ammonia (18-72) umol/L Total Creatine Kinase (30-223) U/L Total Protein (6.0-8.3) gm/dl Albumin (3.4-5.0) gm/dl Globulin (2.5-4.0) gm/dl Albumin/Globulin Ratio (0.9-2) TSH (0.300-4.500) uIu/ml Urine Osmolality (500-800) mOsm/kg Ur Random Creatinine mg/dl Ur Random Sodium mmol/L Ur Random Potassium mmol/L Ur Random Chloride mmol/L Nasal Screen MRSA (PCR) (Negative) 03/28/24 03/28/24 03/28/24 Range/Units 18:41 18:37 18:00 WBC (4.8-10.8) K/ul RBC (4.70-6.10) M/uL Hgb (14.0-18.0) g/dl POC Hgb (14.0-18.0) g/dl Hct (42.0-52.0) % POC Hct (42-52) % MCV (80.0-100.0) fL MCH (25.0-34.0) pg MCHC (32.0-36.0) g/dL RDW Std Deviation (36.4-46.3) fL RDW Coeff of Art (11.5-14.5) % Plt Count (130-400) K/uL MPV (9.4-12.4) fL Immature Gran % (Auto) % Neut % (Auto) % Lymph % (Auto) % [place] % (Auto) % Eos % (Auto) % Baso % (Auto) % Neut # (Auto) (1.40-6.50) K/uL Lymph # (Auto) (1.20-3.40) K/uL [place] # (Auto) (0.11-0.59) K/uL Eos # (Auto) (0.00-0.50) K/uL Baso # (Auto) (0.00-0.20) K/uL Immature Gran # (Auto) (0.01-0.20) K/uL Specimen Type Sample Site POC pH (7.35-7.45) POC pCO2 (35-46) mmHg POC pO2 (80-95) mmHg POC HCO3 (19-24) ijeoma/L POC Total CO2 (24-31) mmol/L POC Base Excess (-9-1.8) ijeoma/L O2 Sat Pulse Oximetry ABG pH (Temp Correct) (7.35-7.45) ABG pCO2 (Temp Corrct (35-46) mmHg POC ABG pO2 at Pt Temp POC ABG O2 Sat (90-95) % Mino Test VBG pH 7.38 (7.36-7.41) VBG pCO2 42 (38-50) mmHg VBG pO2 34 mmHg VBG HCO3 25 mmol/L VBG O2 Saturation < 60.0 % VBG Base Excess -0.4 mEq/L O2 Delivery Device Vent Mode POC FiO2 % End Tidal CO2 POC Sodium (135-144) mmol/L Sodium (136-145) mmol/L POC Potassium (3.3-5.0) mmol/L Potassium (3.5-5.1) mmol/L Chloride (98-107) mmol/L Carbon Dioxide (21-32) mmol/L Anion Gap (3-11) BUN (6-23) mg/dl Creatinine (0.6-1.4) mg/dl Est Cr Clr Drug Dosing ml/min eGFR BUN/Creatinine Ratio (10-20) Glucose (70-99(Fasting)) mg/dl POC Glucose 71 (70-99) mg/dl Calcium (8.6-10.3) mg/dl Phosphorus (2.5-4.9) mg/dl Magnesium (1.7-2.4) mg/dl Total Bilirubin (0.2-1.0) mg/dl AST (13-39) U/L ALT (7-52) U/L Alkaline Phosphatase (34-104) U/L Ammonia (18-72) umol/L Total Creatine Kinase (30-223) U/L Total Protein (6.0-8.3) gm/dl Albumin (3.4-5.0) gm/dl Globulin (2.5-4.0) gm/dl Albumin/Globulin Ratio (0.9-2) TSH (0.300-4.500) uIu/ml Urine Osmolality (500-800) mOsm/kg Ur Random Creatinine mg/dl Ur Random Sodium mmol/L Ur Random Potassium mmol/L Ur Random Chloride mmol/L Nasal Screen MRSA (PCR) Negative (Negative) 03/28/24 Range/Units 14:03 WBC (4.8-10.8) K/ul RBC (4.70-6.10) M/uL Hgb (14.0-18.0) g/dl POC Hgb (14.0-18.0) g/dl Hct (42.0-52.0) % POC Hct (42-52) % MCV (80.0-100.0) fL MCH (25.0-34.0) pg MCHC (32.0-36.0) g/dL RDW Std Deviation (36.4-46.3) fL RDW Coeff of Art (11.5-14.5) % Plt Count (130-400) K/uL MPV (9.4-12.4) fL Immature Gran % (Auto) % Neut % (Auto) % Lymph % (Auto) % [place] % (Auto) % Eos % (Auto) % Baso % (Auto) % Neut # (Auto) (1.40-6.50) K/uL Lymph # (Auto) (1.20-3.40) K/uL [place] # (Auto) (0.11-0.59) K/uL Eos # (Auto) (0.00-0.50) K/uL Baso # (Auto) (0.00-0.20) K/uL Immature Gran # (Auto) (0.01-0.20) K/uL Specimen Type Sample Site POC pH (7.35-7.45) POC pCO2 (35-46) mmHg POC pO2 (80-95) mmHg POC HCO3 (19-24) ijeoma/L POC Total CO2 (24-31) mmol/L POC Base Excess (-9-1.8) ijeoma/L O2 Sat Pulse Oximetry ABG pH (Temp Correct) (7.35-7.45) ABG pCO2 (Temp Corrct (35-46) mmHg POC ABG pO2 at Pt Temp POC ABG O2 Sat (90-95) % Mino Test VBG pH (7.36-7.41) VBG pCO2 (38-50) mmHg VBG pO2 mmHg VBG HCO3 mmol/L VBG O2 Saturation % VBG Base Excess mEq/L O2 Delivery Device Vent Mode POC FiO2 % End Tidal CO2 POC Sodium (135-144) mmol/L Sodium (136-145) mmol/L POC Potassium (3.3-5.0) mmol/L Potassium (3.5-5.1) mmol/L Chloride (98-107) mmol/L Carbon Dioxide (21-32) mmol/L Anion Gap (3-11) BUN (6-23) mg/dl Creatinine (0.6-1.4) mg/dl Est Cr Clr Drug Dosing ml/min eGFR BUN/Creatinine Ratio (10-20) Glucose (70-99(Fasting)) mg/dl POC Glucose (70-99) mg/dl Calcium (8.6-10.3) mg/dl Phosphorus (2.5-4.9) mg/dl Magnesium (1.7-2.4) mg/dl Total Bilirubin (0.2-1.0) mg/dl AST (13-39) U/L ALT (7-52) U/L Alkaline Phosphatase (34-104) U/L Ammonia (18-72) umol/L Total Creatine Kinase 1156 H (30-223) U/L Total Protein (6.0-8.3) gm/dl Albumin (3.4-5.0) gm/dl Globulin (2.5-4.0) gm/dl Albumin/Globulin Ratio (0.9-2) TSH 0.875 (0.300-4.500) uIu/ml Urine Osmolality (500-800) mOsm/kg Ur Random Creatinine mg/dl Ur Random Sodium mmol/L Ur Random Potassium mmol/L Ur Random Chloride mmol/L Nasal Screen MRSA (PCR) (Negative) Medications Administered Current Inpatient Medications Aspirin (Aspirin 81 Mg Chew) 81 mg PO DAILY KALI Stop: 04/28/24 08:59 Last Admin: 03/29/24 10:59 Dose: 81 mg Clopidogrel Bisulfate (Clopidogrel Bisulfate 75 Mg Tab) 75 mg PO QAM KALI Stop: 04/28/24 08:59 Last Admin: 03/29/24 10:59 Dose: 75 mg Dextrose (Dextrose 50% 50 Ml Syringe) 25 - 50 ml IV UD PRN; Protocol PRN Reason: Hypoglycemia Protocol Stop: 04/27/24 20:50 Last Admin: 03/28/24 21:24 Dose: 25 ml Enteral Nutritional Formula (Novasource Renal 2.0 Akash 1000ml Bag) 1,000 ml OG .See Protocol KALI; Protocol Stop: 04/28/24 12:59 Last Admin: 03/29/24 16:07 Dose: 1,000 ml Glucagon (Glucagon For Inj 1 Mg Vial) 1 mg SQ UD PRN; Protocol PRN Reason: Hypoglycemia Protocol Stop: 04/27/24 20:50 Glucose (Glucose 40% Gel 15 Gm Tube) 15 - 30 gm PO UD PRN; Protocol PRN Reason: Hypoglycemia Protocol Stop: 04/27/24 20:50 Glucose (Glucose 10 Tab/Tube) 4 - 8 tab PO UD PRN; Protocol PRN Reason: Hypoglycemia Protocol Stop: 04/27/24 20:50 Heparin Sodium (Porcine) (Heparin Sod 5,000 Unit/0.5 Ml Vial) 5,000 units SQ Q12 [facility]I Stop: 04/28/24 08:59 Last Admin: 03/29/24 11:09 Dose: 5,000 units Piperacillin Sod/Tazobactam Sod (Zosyn) 4.5 gm in 100 mls @ 25 mls/hr IV Q12H [facility]ALI; Protocol Stop: 03/30/24 17:30 Last Admin: 03/29/24 14:18 Dose: 25 mls/hr Parenteral Electrolytes (Plasma-Lyte A Ph 7.4) 1,000 mls @ 200 mls/hr IV .Q5H [facility]ALI Stop: 03/30/24 10:30 Last Admin: 03/29/24 16:38 Dose: 200 mls/hr Lansoprazole (Lansoprazole 30 Mg Soltab) 30 mg PO QAM [facility]ALI Stop: 04/28/24 08:59 Last Admin: 03/29/24 10:59 Dose: 30 mg Levetiracetam (Levetiracetam 500 Mg/5 Ml Vial) 500 mg IV Q24H [facility]I Stop: 04/29/24 08:59 Magnesium Oxide (Magnesium Oxide 400 Mg Tab) 400 mg PO TID [facility]I Stop: 03/31/24 08:59 Last Admin: 03/29/24 14:18 Dose: 400 mg Miscellaneous (Icu Protocol For Hyperglycemia) 1 each N/A ACHS [facility]ALI Stop: 03/30/24 18:00 Last Admin: 03/29/24 16:59 Dose: Not Given Miscellaneous (Carbohydrates For Hypoglycemia ) 15 - 30 gm PO UD PRN PRN Reason: Hypoglycemia Protocol Stop: 04/27/24 20:50 Sterile Water (Tube Feeding Water Flush) 200 ml OG Q4H KALI Stop: 04/28/24 12:59 Last Admin: 03/29/24 16:12 Dose: 200 ml Thiamine HCl (Thiamine Hcl 100 Mg Tab) 100 mg PO QAM [facility] Stop: 04/28/24 08:59 Last Admin: 03/29/24 11:04 Dose: 100 mg
[2024-03-29] MEDS: POTASSIUM CHLORIDE / WTR 10 MEQ/100 ML PLCT IV SCH (09:27)
[2024-03-29] MEDS: levETIRAcetam 500 MG/5 ML VIAL IV ONE (10:24)
[2024-03-29] MEDS: ASPIRIN 81 MG CHEW PO SCH (10:59)
[2024-03-29] MEDS: MAGNESIUM OXIDE 400 MG TAB PO SCH (10:59)
[2024-03-29] MEDS: CLOPIDOGREL BISULFATE 75 MG TAB PO SCH (10:59)
[2024-03-29] MEDS: LANSOPRAZOLE 30 MG SOLTAB PO SCH (10:59)
--- NOTE | 2024-03-29 11:01 | XRay Report ---
KUB HISTORY: Status post placement of an enteric tube feed tube placement COMPARISON: 01/15/2023 FINDINGS: This is insufficient enteric tube projects over the right upper quadrant abdomen, likely wi thin the proximal stomach. Nonobstructive bowel gas pattern. No definite urolith identified. No pneu moperitoneum or pneumatosis. Extensive postoperative changes of the spine. No fracture. IMPRESSION: Distal tip of feeding tube is noted with the upper abdomen, likely within the proximal stomach. ACT 112: Negative or not required by law. The above report was generated using voice recognition software. It may contain grammatical, syntax o r spelling errors. Electronically signed by: Antonio Robbins M.D. 03/29/2024 10:59 AM
[2024-03-29] MEDS: THIAMINE HCL 100 MG TAB PO SCH (11:04)
[2024-03-29] MEDS: HEPARIN SOD 5,000 UNIT/0.5 ML VIAL SQ SCH (11:09)
[2024-03-29] MEDS: PLASMA-LYTE A 1,000 ML IV SCH (11:48)
[2024-03-29] MEDS: TUBE FEEDING WATER FLUSH OG SCH (14:33)
[2024-03-29] MEDS: NOVASOURCE RENAL 2.0 CAL 1000ML BAG OG SCH (16:07)
[2024-03-29 17:13] LABS: Base Excess VBG 0.3 mEq/L; HCO3 VBG 25 mmol/L; Oxygen Saturation VBG 94.8 %; PCO2 VBG 38 mmHg (38-50); PO2 VBG 67 mmHg; pH VBG 7.42 (7.36-7.41)
[2024-03-29 17:41] LABS: BUN Creatinine Ratio 16.2 (10-20); Calcium 8.6 mg/dl (8.6-10.3); Creatinine Clr Calc Pharmacy 13.4 ml/min; Potassium 3.5 mmol/L (3.5-5.1)
[2024-03-29] MEDS ORDERED: levETIRAcetam 500 MG/5 ML VIAL IV SCH (21:00)
[2024-03-30 04:59] LABS: Hematocrit (blood only) 29.1 % (42.0-52.0); Hemoglobin 10.1 g/dl (14.0-18.0); Mean Corpuscular Hemoglobin 29.8 pg (25.0-34.0); Mean Corpuscular Hgb Conc 34.7 g/dL (32.0-36.0); Mean Corpuscular Volume 85.8 fL (80.0-100.0); Mean Platelet Volume 12.9 fL (9.4-12.4); Platelet Count 141 K/uL (130-400); RDW Standard Deviation 44.1 fL (36.4-46.3); Red Blood Count 3.39 M/uL (4.70-6.10); White Blood Count 5.82 K/ul (4.8-10.8)
[2024-03-30 05:10] LABS: BUN Creatinine Ratio 17.9 (10-20); Calcium 8.8 mg/dl (8.6-10.3); Creatinine Clr Calc Pharmacy 16.7 ml/min; Magnesium 1.8 mg/dl (1.7-2.4); Phosphorus 3.6 mg/dl (2.5-4.9); Potassium 3.1 mmol/L (3.5-5.1)
--- NOTE | 2024-03-30 06:33 | Electroencephalogram ---
EEG Procedure Note Date of Service March 29, 2024 Start / End Times Start Time: 1238 End Time: 1258 Referring Physician Chalo Scruggs PA-C History A 78 year old male history of stroke and alcohol use admitted for encephalopathy and acute respiratory failure. He is intubated. EEG performed for evaluation of epileptiform activity. Home Medication List Medication Instructions Recorded Confirmed Type clobetasol 0.05 % topical cream 1 appln topical DAILY PRN Skin 01/12/19 03/28/24 History Irritation gabapentin 600 mg tablet 600 mg PO QID 01/12/19 03/28/24 History sildenafil 100 mg tablet 100 mg PO UD PRN Sexual Activity 02/01/19 03/28/24 History amlodipine 5 mg tablet 5 mg PO QAM 12/21/22 03/28/24 History cyanocobalamin (vitamin B-12) 1,000 mcg PO QAM 12/21/22 03/28/24 History 1,000 mcg tablet famotidine 20 mg tablet 20 mg PO UD 12/21/22 03/28/24 History hydrochlorothiazide 25 mg tablet 25 mg PO UD 12/21/22 03/28/24 History hydrochlorothiazide 50 mg tablet 50 mg PO UD 12/21/22 03/28/24 History losartan 100 mg tablet 100 mg PO QAM 12/21/22 03/28/24 History metformin 500 mg tablet 500 mg PO BID 12/21/22 03/28/24 History acetaminophen 650 mg 650 mg PO Q12H 02/25/24 03/28/24 History tablet,extended release (Arthritis Pain Relief (acetaminophen) ER) baclofen 20 mg tablet 20 mg PO BID 02/25/24 03/28/24 History duloxetine 60 mg capsule,delayed 60 mg PO QAM 02/25/24 03/28/24 History release aspirin 81 mg tablet,delayed 81 mg PO QAM #30 tabs 03/04/24 03/28/24 Rx release folic acid 1 mg tablet 1 mg PO QAM #30 tabs 03/04/24 03/28/24 Rx metoprolol tartrate 25 mg tablet 25 mg PO BID #30 tabs 03/04/24 03/28/24 Rx multivitamin with folic acid 400 1 tab PO QAM #30 tabs 03/04/24 03/28/24 Rx mcg tablet (Daily-Juani (with folic acid)) rosuvastatin 40 mg tablet (Crestor) 40 mg PO DAILY #30 tabs 03/04/24 03/28/24 Rx thiamine HCl (vitamin B1) 100 mg 100 mg PO QAM #30 tabs 03/04/24 03/28/24 Rx tablet clopidogrel 75 mg tablet 75 mg PO DAILY 03/28/24 03/28/24 History diclofenac sodium 1 % topical gel 2 g topical QID 03/28/24 03/28/24 History oxycodone 5 mg capsule 5 mg PO UD PRN pain 03/28/24 03/28/24 History Inpatient Medication List Aspirin (Aspirin 81 Mg Chew) 81 mg PO DAILY KALI Stop: 04/28/24 08:59 Last Admin: 03/29/24 10:59 Dose: 81 mg Documented By: JULIANNA Clopidogrel Bisulfate (Clopidogrel Bisulfate 75 Mg Tab) 75 mg PO QAM KALI Stop: 04/28/24 08:59 Last Admin: 03/29/24 10:59 Dose: 75 mg Documented By: JULIANNA Dextrose (Dextrose 50% 50 Ml Syringe) 25 - 50 ml IV UD PRN; Protocol PRN Reason: Hypoglycemia Protocol Stop: 04/27/24 20:50 Last Admin: 03/28/24 21:24 Dose: 25 ml Documented By: [id number] Admin: 03/28/24 20:59 Dose: 25 ml Documented By: [id number] Enteral Nutritional Formula (Novasource Renal 2.0 Akash 1000ml Bag) 1,000 ml OG .See Protocol KALI; Protocol Stop: 04/28/24 12:59 Last Admin: 03/29/24 16:07 Dose: 1,000 ml Documented By: JULIANNA Heparin Sodium (Porcine) (Heparin Sod 5,000 Unit/0.5 Ml Vial) 5,000 units SQ Q12 KALI Stop: 04/28/24 08:59 Last Admin: 03/29/24 20:00 Dose: 5,000 units Documented By: Admin: 03/29/24 11:09 Dose: 5,000 units Documented By: JULIANNA Piperacillin Sod/Tazobactam Sod (Zosyn) 4.5 gm in 100 mls @ 25 mls/hr IV Q12H KALI; Protocol Stop: 03/30/24 17:30 Last Admin: 03/30/24 02:18 Dose: 50 mls/hr Documented By: Infusion: 03/29/24 18:44 Dose: Infused Documented By: Admin: 03/29/24 14:18 Dose: 25 mls/hr Documented By: Infusion: 03/29/24 04:49 Dose: Infused Documented By: [id number] Admin: 03/29/24 00:46 Dose: 25 mls/hr Documented By: [id number] Parenteral Electrolytes (Plasma-Lyte A Ph 7.4) 1,000 mls @ 200 mls/hr IV .Q5H KALI Stop: 03/30/24 10:30 Last Admin: 03/30/24 02:22 Dose: 200 mls/hr Documented By: Infusion: 03/30/24 00:58 Dose: Infused Documented By: Admin: 03/29/24 19:58 Dose: 200 mls/hr Documented By: Infusion: 03/29/24 19:58 Dose: Infused Documented By: Admin: 03/29/24 16:38 Dose: 200 mls/hr Documented By: Infusion: 03/29/24 16:38 Dose: Infused Documented By: Admin: 03/29/24 11:48 Dose: 200 mls/hr Documented By: JULIANNA Lansoprazole (Lansoprazole 30 Mg Soltab) 30 mg PO QAM KALI Stop: 04/28/24 08:59 Last Admin: 03/29/24 10:59 Dose: 30 mg Documented By: JULIANNA Magnesium Oxide (Magnesium Oxide 400 Mg Tab) 400 mg PO TID KALI Stop: 03/31/24 08:59 Last Admin: 03/29/24 19:58 Dose: 400 mg Documented By: Admin: 03/29/24 14:18 Dose: 400 mg Documented By: Admin: 03/29/24 10:59 Dose: 400 mg Documented By: JULIANNA Miscellaneous (Icu Protocol For Hyperglycemia) 1 each N/A ACHS KALI Stop: 03/30/24 18:00 Last Admin: 03/29/24 21:18 Dose: Not Given Documented By: Admin: 03/29/24 16:59 Dose: Not Given Documented By: Admin: 03/29/24 12:15 Dose: Not Given Documented By: Admin: 03/29/24 09:26 Dose: Not Given Documented By: Admin: 03/28/24 21:08 Dose: Not Given Documented By: [id number] Admin: 03/28/24 19:07 Dose: Not Given Documented By: THIERNO Sterile Water (Tube Feeding Water Flush) 200 ml OG Q4H KALI Stop: 04/28/24 12:59 Last Admin: 03/30/24 02:19 Dose: 200 ml Documented By: Admin: 03/29/24 19:58 Dose: 200 ml Documented By: Admin: 03/29/24 16:12 Dose: 200 ml Documented By: Admin: 03/29/24 14:33 Dose: Not Given Documented By: JULIANNA Thiamine HCl (Thiamine Hcl 100 Mg Tab) 100 mg PO QAM KALI Stop: 04/28/24 08:59 Last Admin: 03/29/24 11:04 Dose: 100 mg Documented By: JULIANNA Discontinued Medications Dextrose (Dextrose 50% 50 Ml Syringe) Confirm Administered Dose 50 ml IV .STK- MED ONE Stop: 03/28/24 20:53 Last Admin: 03/28/24 21:08 Dose: Not Given Documented By: [id number] Piperacillin Sod/Tazobactam Sod (Zosyn) 4.5 gm in 100 mls @ 200 mls/hr IV NOW STA; Protocol Stop: 03/28/24 17:53 Last Infusion: 03/28/24 18:29 Dose: Infused Documented By: Admin: 03/28/24 17:37 Dose: 200 mls/hr Documented By: [email or web address] Sodium Chloride (Nss) 500 mls @ 999 mls/hr IV .Q31M ONE Stop: 03/28/24 19:00 Last Infusion: 03/28/24 19:19 Dose: Infused Documented By: [id number] Admin: 03/28/24 18:41 Dose: 999 mls/hr Documented By: THIERNO Dextrose (D5w) 1,000 mls @ 80 mls/hr IV .[id number] [facility] Stop: 03/29/24 19:14 Last Infusion: 03/29/24 11:48 Dose: Infused Documented By: Admin: 03/29/24 09:25 Dose: 80 mls/hr Documented By: Infusion: 03/29/24 08:17 Dose: Infused Documented By: Admin: 03/28/24 19:47 Dose: 80 mls/hr Documented By: [id number] Potassium Chloride (K Reilly / Wtr) 10 meq in 100 mls @ 100 mls/hr IV Q1H KALI; Protocol Stop: 03/29/24 10:59 Last Infusion: 03/29/24 18:45 Dose: Infused Documented By: Admin: 03/29/24 12:31 Dose: 100 mls/hr Documented By: Infusion: 03/29/24 12:30 Dose: Infused Documented By: Admin: 03/29/24 11:30 Dose: 100 mls/hr Documented By: Infusion: 03/29/24 11:21 Dose: Infused Documented By: Admin: 03/29/24 10:21 Dose: 100 mls/hr Documented By: Infusion: 03/29/24 10:21 Dose: Infused Documented By: Admin: 03/29/24 09:27 Dose: 100 mls/hr Documented By: JULIANNA Ioversol (Optiray 320 125ml) 112 ml IV ONCE ONE Stop: 03/28/24 13:26 Last Admin: 03/28/24 13:26 Dose: 112 ml Documented By: ARIELLA Levetiracetam (Levetiracetam 500 Mg/5 Ml Vial) 1,500 mg IV TODAY@0714 ONE Stop: 03/29/24 10:01 Last Admin: 03/29/24 10:24 Dose: 1,500 mg Documented By: JULIANNA Miscellaneous (Stat Iv Infusion Titration Per Protocol) 1 each N/A NOW STA Stop: 03/28/24 13:57 Last Admin: 03/28/24 14:28 Dose: Not Given Documented By: SUHAS Naloxone HCl (Naloxone Hcl 0.4 Mg/1 Ml Vial/Carp) Confirm Administered Dose 0.4 mg .ROUTE .STK-MED ONE Stop: 03/28/24 14:03 Last Admin: 03/28/24 14:47 Dose: 0.4 mg Documented By: SUHAS Description This is a 21 electrode EEG with a single channel dedicated to limited EKG. The electrodes were placed in accordance with the International 10-20 system. REPORT: At the onset the EEG the patient is in an altered mental state. The back ground is disorganized but continuous. The posterior dominant rhtyhm is not seen. Instead the background consist of diffuse 3-5 Hz theta/delta actiivty with frequent IV drip artifact. Interpretation IMPRESSION: This is an abnormal routine EEG in a patient with altered mentation due to severe generalized background slowing suggestive of a non specific encephalopathy. No epileptiform activity or electrographic seizures are seen.
[2024-03-30] MEDS: MAGNESIUM SULFATE / D5W 1 GM/100 ML BAG IV ONE ×2 (06:43→10:55)
[2024-03-30] MEDS: POTASSIUM CHLORIDE / WTR 10 MEQ/100 ML PLCT IV SCH (06:44)
--- NOTE | 2024-03-30 08:04 | Critical Care Progress Note ---
Date of Service March 30, 2024 Assessment & Plan (1) Metabolic encephalopathy: (2) Acute renal failure: (3) HTN (hypertension): Plan Reason Critically Ill: 78-year-old male was brought in by the EMS as he was found to be unresponsive and subsequently intubated. Transferred to the ICU for further care Past medical history: Alcohol abuse, multiple strokes, coiling of the anterior cerebral artery, diabetes, lumbar radiculopathy Neuro - [facility]: Unable to assess Sedation -- Metabolic encephalopathy With questionable seizure/myoclonic-like activity Unsure if it is related to alcohol withdrawal CTA head/neck negative Brain MRI negative for acute stroke EEG 03/29/2024 shows generalized slowing with no seizure-like activity Tox screen was positive for benzodiazepine but he did get midazolam Alcohol negative Ammonia within normal limit Keppra loaded and started on 03/29/2024 -- History of stroke 02/25/2024 Supposed to be on dual antiplatelet therapy aspirin and Plavix as well as Crestor 40 mg --History of alcohol abuse -- 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 Cardiac - -- Hypertension and dyslipidemia On amlodipine at home EKG 03/28/2024 1 PM: Normal sinus rhythm, normal axis, no ST-T wave changes appreciated 2D echo 10/11/2022: EF 60-65%, grade 1 diastolic dysfunction, mild concentric LVH, RV normal in size and function Respiratory - -- VDRF Likely secondary to protecting airway Continue with ventilatory support Keep RASS -1 Daily sedation holidays and SBT's GI - -- No acute issues RENAL/LYTES - -- Acute renal failure Baseline creatinine is 0.8 Likely prerenal Follow-up urine lites Avoid nephrotoxic medication -- Rhabdomyolysis CPK 1156 03/28/24 Continue with IV fluids ENDO - -- Diabetes type 2 Continue with ICU hypoglycemia protocol HEME - -- Normocytic anemia Monitor H&H ID - -- No clear source of infection, spiking fever of 38 Chest x-ray clean UA negative for leukocyte esterase or bacteria He does have abrasion on the back --Prophylaxis VTE:IPC GI:None Lines: Peripheral Diet: Tube feeds Plan: In/out: +2.8 L, urine output 1900 mL Trial of extubation today Patient is having central apneic episode. Could be central from history of multiple strokes. Probability of meningitis is low especially given the brain MRI being negative. Continue with Zosyn for total of 5 days Will get neurology involved Hypokalemia and hypomagnesemia being replaced Continue with Keppra Continue with IV fluids Patient would not want to have prolonged intubation. As per the patient as well as family he wants to be DNR/DNI but okay to continue with the current measures and if there is no improvement then no further escalation of care I have personally spent 36 minutes of critical care time in the direct management of this patient. This is a life/limb threatening event. This includes time spent evaluating patient, direct bedside care, chart review, placing orders, interpretation of diagnostic studies, discussion with consultants, patient, and family members, as well as other required patient management activities. This time is exclusive of all separately billable procedures, and teaching time and separate from and in addition to any other critical care service time. Admission and Anticipated Discharge Date Admission Date: March 28, 2024 Subjective Patient seen and examined at bedside. No acute distress, no adverse events overnight He was on the ventilator, awake alert, answering questions appropriately He was following commands Moving all extremities to commands Denied any headache, no chest pain, no abdominal pain Wanted to take the tube out Review of Systems 2 Review of Systems: All systems reviewed & are unremarkable except as noted in Subjective Physical Exam 2 Physical Exam: Constitutional: No acute distress HEENT: PERRLA Respiratory system: Decreased air entry bilaterally, no wheeze, no rhonchi, positive crackles bilaterally CVS: S1-S2 positive, no murmurs or gallops Abdomen: Soft, nontender, nondistended, positive bowel sounds x4 Extremities: +2 pulses bilaterally radialis/ dorsalis pedis, no cyanosis, no edema Neuro: Intubated, RASS -1, answering questions and following commands Psych: Normal mood and affect G/U: Positive [place] Skin: no rashes, warm and dry Lymphatic: no cervical or axillary lymphadenopathy Results & Data Results & Data Vital Signs (Past 12 Hours) Vital Signs Temp Pulse Resp BP Pulse Ox FiO2 03/30/24 04:00 30 03/30/24 03:37 77 15 100 30 03/30/24 01:33 37.5 C 79 20 117/58 L 99 03/30/24 01:06 37.5 C 76 14 100 03/30/24 00:30 37.5 C 76 14 100 03/30/24 00:09 37.5 C 74 14 100 03/29/24 23:45 37.5 C 74 14 100 03/29/24 23:21 76 14 100 30 03/29/24 23:00 37.5 C 76 14 99 03/29/24 22:39 37.5 C 75 14 100 03/29/24 22:15 37.4 C 79 14 115/72 100 03/29/24 22:06 37.4 C 73 14 100 03/29/24 21:15 37.4 C 76 21 100 03/29/24 20:48 37.4 C 75 14 100 03/29/24 20:30 37.4 C 74 14 100 03/29/24 20:15 37.3 C 74 17 100 03/29/24 20:06 37.2 C 74 16 100 Laboratory Results 03/30/24 04:02 03/30/24 04:02 Coding Level of Care Code 41514 CRITICAL CARE 1ST 30-74M Diagnoses Metabolic encephalopathy G93.41 Acute renal failure N17.9 HTN (hypertension) I10
[2024-03-30] MEDS: levETIRAcetam 500 MG/5 ML VIAL IV SCH (08:51)
[2024-03-30] MEDS ORDERED: levETIRAcetam 500 MG/5 ML VIAL IV ONE (10:00)
--- NOTE | 2024-03-30 11:44 | Neurology Consultation ---
Date of Consultation March 30, 2024 Assessment & Plan (1) Unresponsive: .was found down, unsure about the immediate etiology, hypotension versus alcohol induced/alcohol withdrawal seizure versus encephalopathy (2) Metabolic encephalopathy: MRI of the brain shows no acute changes as well as CTA. EEG also shows generalized slowing with no evidence of seizure activity Plan Continue supportive medical care to treat his acute renal failure, possible infections, arrhythmias. Restart his home medications. For stroke prevention continue aspirin and Plavix for 3 months. Continue statins. Recommend psychiatry evaluation the patient appears to be paranoid, cannot exclude Wernicke's with confabulation. The patient has been receiving thiamine and folate. PT OT ST evaluation and treat. No further recommendations from neurology Telehealth Consultation Telehealth Information Telehealth Information: I performed this visit using a real-time telehealth connection between my location and the patients location ([facility]). After connecting through interactive tele-video, patient was identified by name and date of and/or wristband check.Patient (or authorized healthcare member service representative) was informed that this was a telemedicine visit and it was being conducted confidentially over secure lines. My office door was closed and no one else was present in the room with me.Patient (or authorized healthcare member service representative) provided consent to proceed with the visit, expressed an understanding of privacy and security of the telemedicine visit, and gave permission to have a hospital member service representative in the room in order to assist with the visit and to conduct portions of the visit, as needed. I informed the p atient (or authorized healthcare member service representative) that I reviewed their record and presented the opportunity for them to ask any questions regarding the visit today. The patient agreed to participate. History of Present Illness Reason for Consultation: [facility] Requesting Physician: Faustino Treviño MD Attending Physician: Faustino Treviño MD History of Present Illness 78-year-old male patient with PMH of a recent left frontal lobe infarct on 02/26/2024 manifested as right lower extremity weakness, PMH also includes, HTN, HLD, CAD, prediabetes, chronic anemia, alcohol use. With prior CTA shows multiple areas of intracranial atherosclerosis including posterior branch of the left M2 segment, multifocal high-grade stenosis within the A2 segment of the ALEX, with recommendations for the patient to be on dual antiplatelets at least for 3 months. He was also treated for alcohol withdrawal back then Yesterday on 03/28 he was brought to the ED after being found unresponsive .. Per family the patient was not likely taking his medications reporting losing his medications. He was intubated on scene by EMS. Was found to be with acute kidney injury per chart review with negative alcohol. EEG done today showing abnormal EEG with altered mentation due to severe generalized of a background slowing suggested nonspecific encephalopathy, no evidence of seizures. Today during interview the patient refused to answer any questions, he was awake and alert, looking at the nurse suspiciously. He was able to move all 4 extremities with weakness of the right lower extremity, refused to answer orientation questions arguing that( you know what month is it why you asking me). Interview was done by the help of the nurse noted all the questions because he did not acknowledge or answer any questions to me through the monitor. Allergies Allergy/AdvReac Type Severity Reaction Status Date / Time lisinopril AdvReac Mild Cough Verified 02/25/24 02:25 Home Medications Medication Instructions Recorded Confirmed Type clobetasol 0.05 % topical cream 1 appln topical DAILY PRN Skin 01/12/19 03/28/24 History Irritation gabapentin 600 mg tablet 600 mg PO QID 01/12/19 03/28/24 History sildenafil 100 mg tablet 100 mg PO UD PRN Sexual Activity 02/01/19 03/28/24 History amlodipine 5 mg tablet 5 mg PO QAM 12/21/22 03/28/24 History cyanocobalamin (vitamin B-12) 1,000 mcg PO QAM 12/21/22 03/28/24 History 1,000 mcg tablet famotidine 20 mg tablet 20 mg PO UD 12/21/22 03/28/24 History hydrochlorothiazide 25 mg tablet 25 mg PO UD 12/21/22 03/28/24 History hydrochlorothiazide 50 mg tablet 50 mg PO UD 12/21/22 03/28/24 History losartan 100 mg tablet 100 mg PO QAM 12/21/22 03/28/24 History metformin 500 mg tablet 500 mg PO BID 12/21/22 03/28/24 History acetaminophen 650 mg 650 mg PO Q12H 02/25/24 03/28/24 History tablet,extended release (Arthritis Pain Relief (acetaminophen) ER) baclofen 20 mg tablet 20 mg PO BID 02/25/24 03/28/24 History duloxetine 60 mg capsule,delayed 60 mg PO QAM 02/25/24 03/28/24 History release aspirin 81 mg tablet,delayed 81 mg PO QAM #30 tabs 03/04/24 03/28/24 Rx release folic acid 1 mg tablet 1 mg PO QAM #30 tabs 03/04/24 03/28/24 Rx metoprolol tartrate 25 mg tablet 25 mg PO BID #30 tabs 03/04/24 03/28/24 Rx multivitamin with folic acid 400 1 tab PO QAM #30 tabs 03/04/24 03/28/24 Rx mcg tablet (Daily-Juani (with folic acid)) rosuvastatin 40 mg tablet (Crestor) 40 mg PO DAILY #30 tabs 03/04/24 03/28/24 Rx thiamine HCl (vitamin B1) 100 mg 100 mg PO QAM #30 tabs 03/04/24 03/28/24 Rx tablet clopidogrel 75 mg tablet 75 mg PO DAILY 03/28/24 03/28/24 History diclofenac sodium 1 % topical gel 2 g topical QID 03/28/24 03/28/24 History oxycodone 5 mg capsule 5 mg PO UD PRN pain 03/28/24 03/28/24 History Patient History Medical History History of ETOH abuse Osteoarthritis of left knee Medical marijuana use Gout Neuropathy of both feet Hyperlipidemia Surgical History History of repair of right rotator cuff History of decompression of ulnar nerve right Status post trigger finger release History of carpal tunnel release of both wrists History of spinal fusion x3--per pt from cervical to lumbar region, normal ROM History of colonoscopy History of hernia surgery History of tooth extraction History of heart artery stent 3 CONNOR placed 03/20/11 @ [facility] History of cardiac cath 03/20/11 @ [facility] with 3 CONNRO placed (pt states was on plavix taken off roughly 6 months ago)--follows with Emerson Hampton PA-C @ [facility] Family History Other No family history of adverse response to anesthesia Social History Smoking Status: Unknown if ever smoked Tobacco Type: Cigarettes Second Hand Exposure: Yes; Do You Dip or Chew Tobacco: No; Hx Alcohol Use: Yes Alcohol type: beer Hx Substance Use: Yes Last Used Substance: Unknown Last Used Substance Other:: last used medical marijuana card 3 months ago. Used marijuana once a week. 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 Required: No Beliefs That Will Affect Care: Cultural Current Living Situation: Alone Feels Safe at Home: Yes Assistive Devices: Cane and Walker Review of Systems Cannot be obtained the patient reviewed to answer any questions Physical Exam General Constitutional: Appearance normally developed Head and face: normocephalic and atraumatic Eyes: no ptosis, no anisocoria, and no dysconjugate gaze Respiratory: normal effort Cardiovascular: regular rhythm and regular rate Abdomen: non distended Skin: no rashes, lesions, or ulcers noted Psychiatric: The patient is alert, with inappropriate interactions, refused to answer questions despite being able to speak, appeared to be suspicious about us asking him questions NEUROLOGIC EXAMINATION: Mental Status:alert, there is no aphasia or dysarthria however the patient refused to answer any questions, cannot discern orientation. He followed commands with prompting, occasionally refusing to follow some commands Cranial Nerves: CN 2 -denies any visual changes CN 3, 4, 6 - extra-ocular movements intact and no nystagmus CN 5 - facial sensation intact CN 7 - no facial asymmetry CN 8 - intact hearing CN 9, 10 - palate symmetric, normal gag CN 11 - good shoulder shrug CN 12 - tongue midline MOTOR: Strength was at least antigravity throughout, except for the right lower extremity that he did not lift off the bed there were no abnormal movements SENSATION: intact and symmetric to pinprick, light touch, vibration and joint position GAIT: The patient cannot participate COORDINATION: Did not participate REFLEXES: cannot assess over telemedicine Results & Data Vital Signs (Past 12 Hours) Vital Signs Temp Pulse Resp BP Pulse Ox O2 Del Method O2 Flow Rate 03/30/24 08:40 BiPAP 0.25 03/30/24 08:30 90 99 03/30/24 07:25 86 18 98 03/30/24 04:00 03/30/24 03:37 77 15 100 03/30/24 01:33 37.5 C 79 20 117/58 L 99 03/30/24 01:06 37.5 C 76 14 100 03/30/24 00:30 37.5 C 76 14 100 03/30/24 00:09 37.5 C 74 14 100 03/29/24 23:45 37.5 C 74 14 100 03/29/24 23:21 76 14 100 FiO2 03/30/24 08:40 03/30/24 08:30 03/30/24 07:25 30 03/30/24 04:00 30 03/30/24 03:37 30 03/30/24 01:33 03/30/24 01:06 03/30/24 00:30 03/30/24 00:09 03/29/24 23:45 03/29/24 23:21 30 Laboratory Results Laboratory Results - last 24 hr 03/29/24 03/29/24 03/29/24 10:23 12:07 16:56 WBC RBC Hgb Hct MCV MCH MCHC RDW Std Deviation RDW Coeff of Art Plt Count MPV VBG pH 7.42 H VBG pCO2 38 VBG pO2 67 VBG HCO3 25 VBG O2 Saturation 94.8 VBG Base Excess 0.3 Sodium 139 Potassium 3.5 Chloride 102 Carbon Dioxide 25 Anion Gap 12 H BUN 76 H Creatinine 4.69 H* D Est Cr Clr Drug Dosing 13.4 eGFR 12.13 BUN/Creatinine Ratio 16.2 Glucose 107 H POC Glucose 135 H Calcium 8.6 Phosphorus Magnesium Total Creatine Kinase 654 H Urine Color Urine Appearance Urine pH Ur Specific [place] Urine Protein Urine Glucose (UA) Urine Ketones Urine Blood Urine Nitrite Urine Bilirubin Urine Urobilinogen Ur Leukocyte Esterase 03/29/24 03/29/24 03/30/24 16:59 20:02 04:02 WBC 5.82 RBC 3.39 L Hgb 10.1 L Hct 29.1 L MCV 85.8 MCH 29.8 MCHC 34.7 RDW Std Deviation 44.1 RDW Coeff of Art 14.0 Plt Count 141 MPV 12.9 H VBG pH VBG pCO2 VBG pO2 VBG HCO3 VBG O2 Saturation VBG Base Excess Sodium 140 Potassium 3.1 L Chloride 104 Carbon Dioxide 26 Anion Gap 10 BUN 67 H Creatinine 3.75 H D Est Cr Clr Drug Dosing 16.7 eGFR 15.87 BUN/Creatinine Ratio 17.9 Glucose 131 H POC Glucose 121 H 115 H Calcium 8.8 Phosphorus 3.6 Magnesium 1.8 Total Creatine Kinase Urine Color Urine Appearance Urine pH Ur Specific [place] Urine Protein Urine Glucose (UA) Urine Ketones Urine Blood Urine Nitrite Urine Bilirubin Urine Urobilinogen Ur Leukocyte Esterase 03/30/24 11:40 WBC RBC Hgb Hct MCV MCH MCHC RDW Std Deviation RDW Coeff of Art Plt Count MPV VBG pH VBG pCO2 VBG pO2 VBG HCO3 VBG O2 Saturation VBG Base Excess Sodium Potassium Chloride Carbon Dioxide Anion Gap BUN Creatinine Est Cr Clr Drug Dosing eGFR BUN/Creatinine Ratio Glucose POC Glucose Calcium Phosphorus Magnesium Total Creatine Kinase Urine Color Pending Urine Appearance Pending Urine pH Pending Ur Specific [place] Pending Urine Protein Pending Urine Glucose (UA) Pending Urine Ketones Pending Urine Blood Pending Urine Nitrite Pending Urine Bilirubin Pending Urine Urobilinogen Pending Ur Leukocyte Esterase Pending Diagnostic Findings MRI Brain : IMPRESSION: Mild cerebral atrophy and periventricular white matter T2 hyperintensity consistent with chronic small vessel disease and/or senescent changes. No areas of diffusion restriction are seen to indicate acute stroke. CTA head and enck: IMPRESSION: 1. 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 2. Short segment high-grade stenosis versus occlusion involving a left M2 branch within the sylvian fissure is unchanged from the 02/25/2024 exam. 3. 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 . 4. Endotracheal tube in place with moderate secretions within the airway and esophagus. ACT 112: Negative or not required by law. EEG: EEG done today showing abnormal EEG with altered mentation due to severe generalized of a background slowing suggested nonspecific encephalopathy, no evidence of seizures Medications Administered Home Medications Medication Instructions Recorded Confirmed Last Taken clobetasol 0.05 % topical cream 1 appln topical DAILY PRN Skin 01/12/19 03/28/24 Unknown Irritation gabapentin 600 mg tablet 600 mg PO QID 01/12/19 03/28/24 02/24/24 sildenafil 100 mg tablet 100 mg PO UD PRN Sexual Activity 02/01/19 03/28/24 Unknown amlodipine 5 mg tablet 5 mg PO QAM 12/21/22 03/28/24 01/13/23 03:30 cyanocobalamin (vitamin B-12) 1,000 mcg PO QAM 12/21/22 03/28/24 01/12/23 09:00 1,000 mcg tablet famotidine 20 mg tablet 20 mg PO UD 12/21/22 03/28/24 01/12/23 18:00 hydrochlorothiazide 25 mg tablet 25 mg PO UD 12/21/22 03/28/24 01/12/23 18:00 hydrochlorothiazide 50 mg tablet 50 mg PO UD 12/21/22 03/28/24 01/11/23 18:00 losartan 100 mg tablet 100 mg PO QAM 12/21/22 03/28/24 01/12/23 09:00 metformin 500 mg tablet 500 mg PO BID 12/21/22 03/28/24 01/12/23 18:00 acetaminophen 650 mg 650 mg PO Q12H 02/25/24 03/28/24 Unknown tablet,extended release (Arthritis Pain Relief (acetaminophen) ER) baclofen 20 mg tablet 20 mg PO BID 02/25/24 03/28/24 Unknown duloxetine 60 mg capsule,delayed 60 mg PO QAM 02/25/24 03/28/24 Unknown release aspirin 81 mg tablet,delayed 81 mg PO QAM #30 tabs 03/04/24 03/28/24 Unknown release folic acid 1 mg tablet 1 mg PO QAM #30 tabs 03/04/24 03/28/24 Unknown metoprolol tartrate 25 mg tablet 25 mg PO BID #30 tabs 03/04/24 03/28/24 Unknown multivitamin with folic acid 400 1 tab PO QAM #30 tabs 03/04/24 03/28/24 Unknown mcg tablet (Daily-Juani (with folic acid)) rosuvastatin 40 mg tablet (Crestor) 40 mg PO DAILY #30 tabs 03/04/24 03/28/24 Unknown thiamine HCl (vitamin B1) 100 mg 100 mg PO QAM #30 tabs 03/04/24 03/28/24 Unknown tablet clopidogrel 75 mg tablet 75 mg PO DAILY 03/28/24 03/28/24 Unknown diclofenac sodium 1 % topical gel 2 g topical QID 03/28/24 03/28/24 Unknown oxycodone 5 mg capsule 5 mg PO UD PRN pain 03/28/24 03/28/24 Unknown Active Medications Generic Name Dose Route Start Last Admin Trade Name Freq PRN Reason Stop Dose Admin Aspirin 81 mg 03/29/24 09:00 03/30/24 08:26 Aspirin 81 Mg Chew PO 04/28/24 08:59 81 mg DAILY KALI Administration Clopidogrel Bisulfate 75 mg 03/29/24 09:00 03/30/24 08:26 Clopidogrel Bisulfate 75 Mg Tab PO 04/28/24 08:59 75 mg QAM KALI Administration Dextrose 25 - 50 ml 03/28/24 20:51 03/28/24 21:24 Dextrose 50% 50 Ml Syringe IV 04/27/24 20:50 25 ml UD PRN Administration Hypoglycemia Protocol Protocol Enteral Nutritional Formula 1,000 ml 03/29/24 13:00 03/29/24 16:07 Novasource Renal 2.0 Akash 1000ml Bag OG 04/28/24 12:59 1,000 ml .See Protocol KALI Administration Protocol Heparin Sodium (Porcine) 5,000 units 03/29/24 09:00 03/30/24 08:51 Heparin Sod 5,000 Unit/0.5 Ml Vial SQ 04/28/24 08:59 5,000 units Q12 KALI Administration Piperacillin Sod/Tazobactam Sod 4.5 gm in 100 mls @ 25 mls/hr 03/29/24 01:30 03/30/24 04:18 Zosyn IV 04/02/24 23:59 Infused Q12H KALI Infusion Protocol Magnesium Sulfate/Dextrose 1 gm in 100 mls @ 50 mls/hr 03/30/24 10:15 03/30/24 10:55 Magnesium Sulfate / D5w IV 03/30/24 12:14 50 mls/hr NOW ONE Administration Lansoprazole 30 mg 03/29/24 09:00 03/30/24 08:26 Lansoprazole 30 Mg Soltab PO 04/28/24 08:59 30 mg QAM KALI Administration Levetiracetam 500 mg 03/30/24 09:00 03/30/24 08:51 Levetiracetam 500 Mg/5 Ml Vial IV 04/29/24 08:59 500 mg Q24H KALI Administration Miscellaneous 1 each 03/28/24 18:01 03/30/24 07:59 Icu Protocol For Hyperglycemia N/A 03/30/24 18:00 Not Given ACHS KALI Sterile Water 200 ml 03/29/24 13:00 03/30/24 08:33 Tube Feeding Water Flush OG 04/28/24 12:59 Not Given Q4H KALI Thiamine HCl 100 mg 03/29/24 09:00 03/30/24 08:26 Thiamine Hcl 100 Mg Tab PO 04/28/24 08:59 100 mg QAM KALI Administration
[2024-03-30 12:04] LABS: Appearance Urine Turbid (Clear); Bacteria Urine Automated None Seen (None Seen); Bilirubin Urine Negative (Negative); Blood Urine 2+ (Negative); Cast Urine Automated >20 /lpf (0-2); Color Urine Yellow; Glucose Urine UA Negative (Negative); Ketones Urine Negative (Negative); Leukocyte Esterase Urine 2+ (Negative); Nitrite Urine Negative (Negative); Protein Urine 2+ (Negative); RBC Urine Automated >20 /hpf (0-2); Specific Gravity Urine 1.014 (1.000-1.030); Urobilinogen Urine Negative (Negative); WBC Urine Automated >50 /hpf (0-5); pH Urine 6.5 (4.5-7.5)
[2024-03-30 12:13] LABS: Granular Casts Urine P /lpf (None Prsent)
--- NOTE | 2024-03-30 12:38 | Nephrology Progress Note ---
Date of Service March 30, 2024 Assessment & Plan (1) Acute renal failure: Plan: improving at least in part prerenal stage 3 nonoliguric PETTY w/ significant hypokalemia of ? cause. K dropped since admission >> related to acid/base shifts and both K, pH being corrected. off of ivf now and extubated. CK downtrending -hold IVF for now as renal function stabilizes -strict I/O -no indication for dialysis discussion currently -continue plasmalyte 200 mL hourly as tolerated > repeat BMP ordered for 1600 so that repletion can continue if needed >> remains on RA and BMP improving further w/ creat down to 2.7; cont plasmalyte current rate as tolerated hgb 10.1 > monitor Admission and Anticipated Discharge Date Admission Date: March 28, 2024 Subjective extubated this AM; tolerating plasmalyte; he is still quite confused - knows where he is, insisting must be d/c today. no pain; seen on late AM rounds Review of Systems 2 Review of Systems: All systems reviewed & are unremarkable except as noted in Subjective Physical Exam 2 Constitutional: well developed (on RA), + thin and + altered mental status; no acute distress and + uncooperative ENMT: Mouth: + dry oral mucous membranes Respiratory: normal respiratory effort Auscultation: + diminished lung sounds Cardiovascular: Rate/Rhythm: regular rate and regular rhythm Extremities: n o edema Gastrointestinal (Abdomen): Inspection/Auscultation: normal bowel sounds P ercussion/Palpation: abdomen soft; abdomen nontender Skin: no rashes, warm and dry Neurologic: giraldo, fluent speech, not moving arms/hands much Results & Data Vital Signs (Past 12 Hours) Vital Signs Temp Pulse Resp BP Pulse Ox O2 Del Method O2 Flow Rate 03/30/24 12:27 79 22 97 03/30/24 12:00 151/72 H 03/30/24 11:12 37.7 C H 80 22 97 03/30/24 11:00 126/58 L 03/30/24 10:00 37.8 C H 77 22 113/76 99 03/30/24 09:33 37.9 C H 77 22 98 03/30/24 09:00 124/60 03/30/24 08:40 BiPAP 0.25 03/30/24 08:30 90 99 03/30/24 08:18 38.1 C H 84 22 126/62 99 03/30/24 07:25 86 18 98 03/30/24 07:00 38.1 C H 88 16 126/63 99 03/30/24 04:00 03/30/24 03:37 77 15 100 03/30/24 01:33 37.5 C 79 20 117/58 L 99 03/30/24 01:06 37.5 C 76 14 100 FiO2 03/30/24 12:27 03/30/24 12:00 03/30/24 11:12 03/30/24 11:00 03/30/24 10:00 03/30/24 09:33 03/30/24 09:00 03/30/24 08:40 03/30/24 08:30 03/30/24 08:18 03/30/24 07:25 30 03/30/24 07:00 03/30/24 04:00 30 03/30/24 03:37 30 03/30/24 01:33 03/30/24 01:06 Laboratory Results 03/30/24 04:02 03/30/24 04:02
--- NOTE | 2024-03-30 13:24 | Hospitalist Progress Note ---
Date of Service March 30, 2024 Assessment & Plan (1) Unresponsive: (2) Acute renal failure: (3) CVA (cerebral vascular accident): (4) History of ETOH abuse: (5) Coronary artery disease: (6) Diabetes mellitus, type 2: (7) HTN (hypertension): Plan: Unresponsive Acute metabolic encephalopathy Unclear etiology DD: Alcohol withdrawal, seizure activity, med overdose Patient is 78 year old male with PMH HTN, HLD, CAD, prediabetes, chronic anemia, alcohol use, CVA presented to ER as was found unresponsive lying on floor today. 02/2024 hospitalized with acute to subacute CVA, alcohol withdrawal and recommended aspirin, Plavix, Crestor. Per family patient likely not taking medications as mentioned he lost his medications. Patient intubated by EMS. CT Head: No acute intracranial findings. No change in appearance of the brain. 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 Exam mildly compromised given associated streak artifact. CTA Head & Neck: Streak artifact related to the aneurysm coils within the anterior communicating artery limits the study. Short segment high-grade stenosis versus occlusion involving a left M2 branch within the sylvian fissure is unchanged from the 02/25/2024 exam. 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 MRI brain- negative for acute stroke With questionable seizure/myoclonic-like activity CXR: Endotracheal tube overlies the midline, 5.9 cm superior to the gordo. The lungs appear clear. No pneumothorax. Unclear etiology. Possible alcohol withdrawal, however unclear when patient last consumed. No clear source of infection Fever 38, Chest x-ray clear, UA negative for leukocyte esterase or bacteria, He does have abrasion on the back ETOH negative. Urine drug screen positive benzodiazepines however did receive midazolam prior to urine collection ammonia level normal Pt was intubated and admitted to ICU 03/30 extubated this AM Continue zosyn for 5 days. Keppra loaded and started on 03/29/2024 Management per marketing analytics analyst Neurology consulted - 1) Unresponsive: .was found down, unsure about the immediate etiology, hypotension versus alcohol induced/alcohol withdrawal seizure versus encephalopathy (2) Metabolic encephalopathy: MRI of the brain shows no acute changes as well as CTA. EEG also shows generalized slowing with no evidence of seizure activity Plan Continue supportive medical care to treat his acute renal failure, possible infections, arrhythmias. Restart his home medications. For stroke prevention continue aspirin and Plavix for 3 months. Continue statins. Recommend psychiatry evaluation the patient appears to be paranoid, cannot exclude Wernicke's with confabulation. The patient has been receiving thiamine and folate. PT OT ST evaluation and treat. No further recommendations from neurology PETTY BUN: 91,Cr: 5.8 Baseline ~0.8 Avoid nephrotoxic agent when possible Renal ultrasound - Slightly increased renal cortical echogenicity bilaterally is nonspecific but can be seen in renal insufficiency. No hydronephrosis or ureterolithiasis is seen. The urinary bladder is completely decompressed by a Poole catheter. Borderline splenomegaly. Nephrology consulted and following Cr improving Rhabdomyolysis Frequent falls, ambulatory dysfunction CK elevated at 1,100 receiving IVF, CK trending down nephrology following History of CVA Previously prescribed aspirin, Plavix and rosuvastatin. Per family appears patient has not been taking History of alcohol abuse Recent hospitalization with treatment for alcohol withdrawal Patient prescribed gabapentin. Unclear if patient been taking Unclear when last EtOH consumed In ER EtOH level negative urine tox posit. for benzos (received midazolam on admission) HTN Prescribed amlodipine at home. Unclear if patient has been taking Dyslipidemia Prescribed rosuvastatin Prediabetes A1c: 5.8 in 02/2024 DVT Prophylaxis SCDs Dispo: ICU DNR/DNI - per discussion w/ family Admission and Anticipated Discharge Date Admission Date: March 28, 2024 Subjective Pt seen in follow up - extubated today , awake, alert and answers simple questions. Pt's niece is present at the bedside Pt was recently hospitalized for cva and etoh withdrawal, then discharged to rehab. since then pt has been home. Denies chest pain, shortness of breath, abd. pain, n/v Does not recall events prior to being admitted to the hospital Review of Systems Review of Systems: All systems reviewed & are unremarkable except as noted in Subjective Physical Exam Physical Exam: General Appearance: slim M in NAD Head: normocephalic, Atraumatic Eyes: normal inspection Neck: supple Respiratory/Chest: Normal breath sounds, CTA Cardiovascular: S1, S2, No murmur Abdomen/GI:Soft, Bowel sounds present Extremities/Musculoskeletal:normal inspection, no edema Neurologic/Psych: awake, alert, answers simple questions, follows commands Skin: normal color, warm Results & Data Results & Data Vital Signs (Past 12 Hours) Vital Signs Temp Pulse Resp BP Pulse Ox O2 Del Method O2 Flow Rate 03/30/24 12:27 79 22 97 03/30/24 12:00 151/72 H 03/30/24 11:12 37.7 C H 80 22 97 03/30/24 11:00 126/58 L 03/30/24 10:00 37.8 C H 77 22 113/76 99 03/30/24 09:33 37.9 C H 77 22 98 03/30/24 09:00 124/60 03/30/24 08:40 BiPAP 0.25 03/30/24 08:30 90 99 03/30/24 08:18 38.1 C H 84 22 126/62 99 03/30/24 07:25 86 18 98 03/30/24 07:00 38.1 C H 88 16 126/63 99 03/30/24 04:00 03/30/24 03:37 77 15 100 03/30/24 01:33 37.5 C 79 20 117/58 L 99 FiO2 03/30/24 12:27 03/30/24 12:00 03/30/24 11:12 03/30/24 11:00 03/30/24 10:00 03/30/24 09:33 03/30/24 09:00 03/30/24 08:40 03/30/24 08:30 03/30/24 08:18 03/30/24 07:25 30 03/30/24 07:00 03/30/24 04:00 30 03/30/24 03:37 30 03/30/24 01:33 Laboratory Results 03/30/24 03/30/24 03/30/24 Range/Units 12:18 11:40 04:02 WBC 5.82 (4.8-10.8) K/ul RBC 3.39 L (4.70-6.10) M/uL Hgb 10.1 L (14.0-18.0) g/dl Hct 29.1 L (42.0-52.0) % MCV 85.8 (80.0-100.0) fL MCH 29.8 (25.0-34.0) pg MCHC 34.7 (32.0-36.0) g/dL RDW Std Deviation 44.1 (36.4-46.3) fL RDW Coeff of Art 14.0 (11.5-14.5) % Plt Count 141 (130-400) K/uL MPV 12.9 H (9.4-12.4) fL VBG pH (7.36-7.41) VBG pCO2 (38-50) mmHg VBG pO2 mmHg VBG HCO3 mmol/L VBG O2 Saturation % VBG Base Excess mEq/L Sodium 140 (136-145) mmol/L Potassium 3.1 L (3.5-5.1) mmol/L Chloride 104 (98-107) mmol/L Carbon Dioxide 26 (21-32) mmol/L Anion Gap 10 (3-11) BUN 67 H (6-23) mg/dl Creatinine 3.75 H D (0.6-1.4) mg/dl Est Cr Clr Drug Dosing 16.7 ml/min eGFR 15.87 BUN/Creatinine Ratio 17.9 (10-20) Glucose 131 H (70-99(Fasting)) mg/dl POC Glucose 118 H (70-99) mg/dl Calcium 8.8 (8.6-10.3) mg/dl Phosphorus 3.6 (2.5-4.9) mg/dl Magnesium 1.8 (1.7-2.4) mg/dl Urine Color Yellow Urine Appearance Turbid A (Clear) Urine pH 6.5 (4.5-7.5) Ur Specific [place] 1.014 (1.000-1.030) Urine Protein 2+ H (Negative) Urine Glucose (UA) Negative (Negative) Urine Ketones Negative (Negative) Urine Blood 2+ H (Negative) Urine Nitrite Negative (Negative) Urine Bilirubin Negative (Negative) Urine Urobilinogen Negative (Negative) Ur Leukocyte Esterase 2+ H (Negative) Urine WBC (Auto) >50 H (0-5) /hpf Urine RBC (Auto) >20 H (0-2) /hpf U Hyaline Cast (Auto) >20 H (0-2) /lpf U Epithel Cells (Auto) 3-5 H (0-2) /hpf Urine Bacteria (Auto) None Seen (None Seen) Granular Casts P (None Prsent) /lpf 03/29/24 03/29/24 03/29/24 Range/Units 20:02 16:59 16:56 WBC (4.8-10.8) K/ul RBC (4.70-6.10) M/uL Hgb (14.0-18.0) g/dl Hct (42.0-52.0) % MCV (80.0-100.0) fL MCH (25.0-34.0) pg MCHC (32.0-36.0) g/dL RDW Std Deviation (36.4-46.3) fL RDW Coeff of Art (11.5-14.5) % Plt Count (130-400) K/uL MPV (9.4-12.4) fL VBG pH 7.42 H (7.36-7.41) VBG pCO2 38 (38-50) mmHg VBG pO2 67 mmHg VBG HCO3 25 mmol/L VBG O2 Saturation 94.8 % VBG Base Excess 0.3 mEq/L Sodium 139 (136-145) mmol/L Potassium 3.5 (3.5-5.1) mmol/L Chloride 102 (98-107) mmol/L Carbon Dioxide 25 (21-32) mmol/L Anion Gap 12 H (3-11) BUN 76 H (6-23) mg/dl Creatinine 4.69 H* D (0.6-1.4) mg/dl Est Cr Clr Drug Dosing 13.4 ml/min eGFR 12.13 BUN/Creatinine Ratio 16.2 (10-20) Glucose 107 H (70-99(Fasting)) mg/dl POC Glucose 115 H 121 H (70-99) mg/dl Calcium 8.6 (8.6-10.3) mg/dl Phosphorus (2.5-4.9) mg/dl Magnesium (1.7-2.4) mg/dl Urine Color Urine Appearance (Clear) Urine pH (4.5-7.5) Ur Specific [place] (1.000-1.030) Urine Protein (Negative) Urine Glucose (UA) (Negative) Urine Ketones (Negative) Urine Blood (Negative) Urine Nitrite (Negative) Urine Bilirubin (Negative) Urine Urobilinogen (Negative) Ur Leukocyte Esterase (Negative) Urine WBC (Auto) (0-5) /hpf Urine RBC (Auto) (0-2) /hpf U Hyaline Cast (Auto) (0-2) /lpf U Epithel Cells (Auto) (0-2) /hpf Urine Bacteria (Auto) (None Seen) Granular Casts (None Prsent) /lpf Medications Administered Current Inpatient Medications Aspirin (Aspirin 81 Mg Chew) 81 mg PO DAILY K[facility]I Stop: 04/28/24 08:59 Last Admin: 03/30/24 08:26 Dose: 81 mg Clopidogrel Bisulfate (Clopidogrel Bisulfate 75 Mg Tab) 75 mg PO QAM [facility] Stop: 04/28/24 08:59 Last Admin: 03/30/24 08:26 Dose: 75 mg Dextrose (Dextrose 50% 50 Ml Syringe) 25 - 50 ml IV UD PRN; Protocol PRN Reason: Hypoglycemia Protocol Stop: 04/27/24 20:50 Last Admin: 03/28/24 21:24 Dose: 25 ml Glucagon (Glucagon For Inj 1 Mg Vial) 1 mg SQ UD PRN; Protocol PRN Reason: Hypoglycemia Protocol Stop: 04/27/24 20:50 Glucose (Glucose 40% Gel 15 Gm Tube) 15 - 30 gm PO UD PRN; Protocol PRN Reason: Hypoglycemia Protocol Stop: 04/27/24 20:50 Glucose (Glucose 10 Tab/Tube) 4 - 8 tab PO UD PRN; Protocol PRN Reason: Hypoglycemia Protocol Stop: 04/27/24 20:50 Heparin Sodium (Porcine) (Heparin Sod 5,000 Unit/0.5 Ml Vial) 5,000 units SQ Q12 [facility] Stop: 04/28/24 08:59 Last Admin: 03/30/24 08:51 Dose: 5,000 units Piperacillin Sod/Tazobactam Sod (Zosyn) 4.5 gm in 100 mls @ 25 mls/hr IV Q12H [facility]I; Protocol Stop: 04/02/24 23:59 Last Infusion: 03/30/24 17:07 Dose: Infused Lansoprazole (Lansoprazole 30 Mg Soltab) 30 mg PO QAM [facility] Stop: 04/28/24 08:59 Last Admin: 03/30/24 08:26 Dose: 30 mg Levetiracetam (Levetiracetam 500 Mg/5 Ml Vial) 500 mg IV Q24H [facility] Stop: 04/29/24 08:59 Last Admin: 03/30/24 08:51 Dose: 500 mg Miscellaneous (Carbohydrates For Hypoglycemia ) 15 - 30 gm PO UD PRN PRN Reason: Hypoglycemia Protocol Stop: 04/27/24 20:50 Thiamine HCl (Thiamine Hcl 100 Mg Tab) 100 mg PO QAM [facility] Stop: 04/28/24 08:59 Last Admin: 03/30/24 08:26 Dose: 100 mg
[2024-03-30 16:29] LABS: Calcium 8.8 mg/dl (8.6-10.3); Potassium 4.5 mmol/L (3.5-5.1)
[2024-03-30 16:34] LABS: BUN Creatinine Ratio 18.6 (10-20); Creatinine Clr Calc Pharmacy 21.6 ml/min
[2024-03-30] MEDS: THIAMINE HCL 100 MG TAB PO SCH (21:04)
[2024-03-31 04:57] LABS: Hematocrit (blood only) 28.5 % (42.0-52.0); Hemoglobin 9.8 g/dl (14.0-18.0); Mean Corpuscular Hemoglobin 30.2 pg (25.0-34.0); Mean Corpuscular Hgb Conc 34.4 g/dL (32.0-36.0); Mean Platelet Volume 12.5 fL (9.4-12.4); Platelet Count 123 K/uL (130-400); RDW Standard Deviation 45.2 fL (36.4-46.3); Red Blood Count 3.24 M/uL (4.70-6.10); White Blood Count 4.93 K/ul (4.8-10.8)
[2024-03-31 05:12] LABS: BUN Creatinine Ratio 21.5 (10-20); Creatinine Clr Calc Pharmacy 32.8 ml/min; Magnesium 1.8 mg/dl (1.7-2.4); Phosphorus 3.2 mg/dl (2.5-4.9); Potassium 3.4 mmol/L (3.5-5.1)
[2024-03-31] MEDS: MAGNESIUM SULFATE / D5W 1 GM/100 ML BAG IV SCH (05:55)
[2024-03-31] MEDS: POTASSIUM CHLORIDE / WTR 10 MEQ/100 ML PLCT IV SCH (05:55)
--- NOTE | 2024-03-31 07:34 | Hospitalist Progress Note ---
Date of Service March 31, 2024 Assessment & Plan (1) Unresponsive: (2) Acute renal failure: (3) CVA (cerebral vascular accident): (4) History of ETOH abuse: (5) Coronary artery disease: (6) Diabetes mellitus, type 2: (7) HTN (hypertension): Plan: Unresponsive Acute metabolic encephalopathy Unclear etiology DD: Alcohol withdrawal, seizure activity, med overdose Patient is 78 year old male with PMH HTN, HLD, CAD, prediabetes, chronic anemia, alcohol use, CVA presented to ER as was found unresponsive lying on floor today. 02/2024 hospitalized with acute to subacute CVA, alcohol withdrawal and recommended aspirin, Plavix, Crestor. Per family patient likely not taking medications as mentioned he lost his medications. Patient intubated by EMS. CT Head: No acute intracranial findings. No change in appearance of the brain. 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 Exam mildly compromised given associated streak artifact. CTA Head & Neck: Streak artifact related to the aneurysm coils within the anterior communicating artery limits the study. Short segment high-grade stenosis versus occlusion involving a left M2 branch within the sylvian fissure is unchanged from the 02/25/2024 exam. 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 MRI brain- negative for acute stroke With questionable seizure/myoclonic-like activity CXR: Endotracheal tube overlies the midline, 5.9 cm superior to the gordo. The lungs appear clear. No pneumothorax. Unclear etiology. Possible alcohol withdrawal, however unclear when patient last consumed. Fever 38, Chest x-ray clear, UA negative for leukocyte esterase or bacteria, He does have large abrasion on the back ETOH negative. Urine drug screen positive benzodiazepines however did receive midazolam prior to urine collection ammonia level normal Pt was intubated and admitted to ICU 03/30 extubated Per pulmonary / customer engineering specialist Sleep apnea --Patient seems to have central sleep apneas Could be central Would recommend BiPAP whenever patient is asleep Continue zosyn for 5 days. wound care for back abrasion Keppra loaded and started on 03/29/2024 for poss. seizure/myoclonic-like activity - discussed w/ neuro - will cont. Management per customer engineering specialist Neurology consulted - 1) Unresponsive: .was found down, unsure about the immediate etiology, hypotension versus alcohol induced/alcohol withdrawal seizure versus encephalopathy (2) Metabolic encephalopathy: MRI of the brain shows no acute changes as well as CTA. EEG also shows generalized slowing with no evidence of seizure activity Plan Continue supportive medical care to treat his acute renal failure, possible infections, arrhythmias. Restart his home medications. For stroke prevention continue aspirin and Plavix for 3 months. Continue statins. Recommend psychiatry evaluation the patient appears to be paranoid, cannot exclude Wernicke's with confabulation. The patient has been receiving thiamine and folate. PT OT ST evaluation and treat. No further recommendations from neurology PETTY BUN: 91,Cr 5.8 Baseline ~0.8 Avoid nephrotoxic agent when possible Renal ultrasound - Slightly increased renal cortical echogenicity bilaterally is nonspecific but can be seen in renal insufficiency. No hydronephrosis or ureterolithiasis is seen. The urinary bladder is completely decompressed by a Poole catheter. Borderline splenomegaly. Nephrology consulted and following Cr improving, now 1.9 Rhabdomyolysis Frequent falls, ambulatory dysfunction CK elevated at 1,100 receiving IVF, CK trending down nephrology following History of CVA Previously prescribed aspirin, Plavix and rosuvastatin. Per family appears patient has not been taking History of alcohol abuse Recent hospitalization with treatment for alcohol withdrawal Unclear when last EtOH consumed In ER EtOH level negative urine tox posit. for benzos (received midazolam on admission) HTN Prescribed amlodipine at home. Unclear if patient has been taking Dyslipidemia Prescribed rosuvastatin Prediabetes A1c: 5.8 in 02/2024 DVT Prophylaxis SCDs, heparin - monitor as + thrombocytopenia Dispo: ICU -> PCU DNR/DNI - per discussion w/ family Admission and Anticipated Discharge Date Admission Date: March 28, 2024 Subjective Pt seen in follow up - extubated yesterday Currently awake, alert and answers simple questions. he is cooperative. Pt's niece is present at the bedside yesterday. Currently present with RN at the bedside. Pt was recently hospitalized for cva and etoh withdrawal, then discharged to rehab. since then pt has been home. Denies chest pain, shortness of breath, abd. pain, n/v Does not recall events prior to being admitted to the hospital Discussed with customer engineering specialist - ok to downgrade from ICU - pt will need Bipap hs Cr down to 1.9 Review of Systems Review of Systems: All systems reviewed & are unremarkable except as noted in Subjective Physical Exam Physical Exam: General Appearance: slim M in NAD Head: normocephalic, Atraumatic Eyes: normal inspection Neck: supple Respiratory/Chest: Normal breath sounds, CTA Cardiovascular: S1, S2, No murmur Abdomen/GI:Soft, Bowel sounds present Extremities/Musculoskeletal:normal inspection, no edema Neurologic/Psych: awake, alert, answers simple questions, follows commands Skin: warm, dry, large abrasion on pt's back Results & Data Results & Data Vital Signs (Past 12 Hours) Vital Signs Temp Pulse Pulse Resp BP BP Pulse Ox 03/31/24 03:12 64 17 120/73 97 03/31/24 02:00 59 L 17 94 03/31/24 01:09 65 14 97 03/31/24 00:00 68 19 97 03/30/24 23:03 63 18 97 03/30/24 22:40 64 12 99 03/30/24 22:00 62 17 97 03/30/24 22:00 37 C 61 20 160/86 H 98 03/30/24 21:09 68 18 97 03/30/24 20:03 61 13 97 03/30/24 20:00 03/30/24 20:00 37.7 C H 65 18 158/84 H 95 O2 Del Method FiO2 03/31/24 03:12 03/31/24 02:00 03/31/24 01:09 03/31/24 00:00 03/30/24 23:03 03/30/24 22:40 25 03/30/24 22:00 03/30/24 22:00 Room Air 03/30/24 21:09 03/30/24 20:03 03/30/24 20:00 Room Air 03/30/24 20:00 Room Air Laboratory Results 03/31/24 03/30/24 03/30/24 Range/Units 04:16 16:03 16:02 WBC 4.93 (4.8-10.8) K/ul RBC 3.24 L (4.70-6.10) M/uL Hgb 9.8 L (14.0-18.0) g/dl Hct 28.5 L (42.0-52.0) % MCV 88.0 (80.0-100.0) fL MCH 30.2 (25.0-34.0) pg MCHC 34.4 (32.0-36.0) g/dL RDW Std Deviation 45.2 (36.4-46.3) fL RDW Coeff of Art 14.0 (11.5-14.5) % Plt Count 123 L (130-400) K/uL MPV 12.5 H (9.4-12.4) fL Sodium 144 144 (136-145) mmol/L Potassium 3.4 L D 4.5 D (3.5-5.1) mmol/L Chloride 107 107 (98-107) mmol/L Carbon Dioxide 27 25 (21-32) mmol/L Anion Gap 10 12 H (3-11) BUN 41 H 54 H (6-23) mg/dl Creatinine 1.91 H D 2.91 H D (0.6-1.4) mg/dl Est Cr Clr Drug Dosing 32.8 21.6 ml/min eGFR 35.66 21.51 BUN/Creatinine Ratio 21.5 H 18.6 (10-20) Glucose 96 102 H (70-99(Fasting)) mg/dl POC Glucose 110 H (70-99) mg/dl Calcium 9.0 8.8 (8.6-10.3) mg/dl Phosphorus 3.2 (2.5-4.9) mg/dl Magnesium 1.8 (1.7-2.4) mg/dl Urine Color Urine Appearance (Clear) Urine pH (4.5-7.5) Ur Specific [place] (1.000-1.030) Urine Protein (Negative) Urine Glucose (UA) (Negative) Urine Ketones (Negative) Urine Blood (Negative) Urine Nitrite (Negative) Urine Bilirubin (Negative) Urine Urobilinogen (Negative) Ur Leukocyte Esterase (Negative) Urine WBC (Auto) (0-5) /hpf Urine RBC (Auto) (0-2) /hpf U Hyaline Cast (Auto) (0-2) /lpf U Epithel Cells (Auto) (0-2) /hpf Urine Bacteria (Auto) (None Seen) Granular Casts (None Prsent) /lpf 03/30/24 03/30/24 Range/Units 12:18 11:40 WBC (4.8-10.8) K/ul RBC (4.70-6.10) M/uL Hgb (14.0-18.0) g/dl Hct (42.0-52.0) % MCV (80.0-100.0) fL MCH (25.0-34.0) pg MCHC (32.0-36.0) g/dL RDW Std Deviation (36.4-46.3) fL RDW Coeff of Art (11.5-14.5) % Plt Count (130-400) K/uL MPV (9.4-12.4) fL Sodium (136-145) mmol/L Potassium (3.5-5.1) mmol/L Chloride (98-107) mmol/L Carbon Dioxide (21-32) mmol/L Anion Gap (3-11) BUN (6-23) mg/dl Creatinine (0.6-1.4) mg/dl Est Cr Clr Drug Dosing ml/min eGFR BUN/Creatinine Ratio (10-20) Glucose (70-99(Fasting)) mg/dl POC Glucose 118 H (70-99) mg/dl Calcium (8.6-10.3) mg/dl Phosphorus (2.5-4.9) mg/dl Magnesium (1.7-2.4) mg/dl Urine Color Yellow Urine Appearance Turbid A (Clear) Urine pH 6.5 (4.5-7.5) Ur Specific [place] 1.014 (1.000-1.030) Urine Protein 2+ H (Negative) Urine Glucose (UA) Negative (Negative) Urine Ketones Negative (Negative) Urine Blood 2+ H (Negative) Urine Nitrite Negative (Negative) Urine Bilirubin Negative (Negative) Urine Urobilinogen Negative (Negative) Ur Leukocyte Esterase 2+ H (Negative) Urine WBC (Auto) >50 H (0-5) /hpf Urine RBC (Auto) >20 H (0-2) /hpf U Hyaline Cast (Auto) >20 H (0-2) /lpf U Epithel Cells (Auto) 3-5 H (0-2) /hpf Urine Bacteria (Auto) None Seen (None Seen) Granular Casts P (None Prsent) /lpf Medications Administered Current Inpatient Medications Aspirin (Aspirin 81 Mg Chew) 81 mg PO DAILY [facility] Stop: 04/28/24 08:59 Last Admin: 03/30/24 08:26 Dose: 81 mg Clopidogrel Bisulfate (Clopidogrel Bisulfate 75 Mg Tab) 75 mg PO QAM [facility] Stop: 04/28/24 08:59 Last Admin: 03/30/24 08:26 Dose: 75 mg Dextrose (Dextrose 50% 50 Ml Syringe) 25 - 50 ml IV UD PRN; Protocol PRN Reason: Hypoglycemia Protocol Stop: 04/27/24 20:50 Last Admin: 03/28/24 21:24 Dose: 25 ml Glucagon (Glucagon For Inj 1 Mg Vial) 1 mg SQ UD PRN; Protocol PRN Reason: Hypoglycemia Protocol Stop: 04/27/24 20:50 Glucose (Glucose 40% Gel 15 Gm Tube) 15 - 30 gm PO UD PRN; Protocol PRN Reason: Hypoglycemia Protocol Stop: 04/27/24 20:50 Glucose (Glucose 10 Tab/Tube) 4 - 8 tab PO UD PRN; Protocol PRN Reason: Hypoglycemia Protocol Stop: 04/27/24 20:50 Heparin Sodium (Porcine) (Heparin Sod 5,000 Unit/0.5 Ml Vial) 5,000 units SQ Q12 [facility] Stop: 04/28/24 08:59 Last Admin: 03/30/24 21:03 Dose: Not Given Piperacillin Sod/Tazobactam Sod (Zosyn) 4.5 gm in 100 mls @ 25 mls/hr IV Q12H [facility]; Protocol Stop: 04/02/24 23:59 Last Infusion: 03/31/24 07:06 Dose: Infused Magnesium Sulfate/Dextrose (Magnesium Sulfate / D5w) 1 gm in 100 mls @ 50 mls/hr IV Q2H [facility] Stop: 03/31/24 09:44 Last Admin: 03/31/24 05:55 Dose: 50 mls/hr Potassium Chloride (K [place] / Wtr) 10 meq in 100 mls @ 100 mls/hr IV Q1H [facility]ALI; Protocol Stop: 03/31/24 09:44 Last Admin: 03/31/24 07:33 Dose: 100 mls/hr Lansoprazole (Lansoprazole 30 Mg Soltab) 30 mg PO QAM [facility] Stop: 04/28/24 08:59 Last Admin: 03/30/24 08:26 Dose: 30 mg Levetiracetam (Levetiracetam 500 Mg/5 Ml Vial) 500 mg IV Q24H [facility] Stop: 04/29/24 08:59 Last Admin: 03/30/24 08:51 Dose: 500 mg Miscellaneous (Carbohydrates For Hypoglycemia ) 15 - 30 gm PO UD PRN PRN Reason: Hypoglycemia Protocol Stop: 04/27/24 20:50 Thiamine HCl (Thiamine Hcl 100 Mg Tab) 200 mg PO BID [facility] Stop: 04/29/24 20:59 Last Admin: 03/30/24 21:04 Dose: Not Given
--- NOTE | 2024-03-31 07:57 | Critical Care Progress Note ---
Date of Service March 31, 2024 Assessment & Plan (1) Metabolic encephalopathy: (2) Acute renal failure: (3) HTN (hypertension): Plan Reason Critically Ill: 78-year-old male was brought in by the EMS as he was found to be unresponsive and subsequently intubated. Transferred to the ICU for further care Past medical history: Alcohol abuse, multiple strokes, coiling of the anterior cerebral artery, diabetes, lumbar radiculopathy Neuro - [facility]: Unable to assess Sedation -- Metabolic encephalopathy --> improved With seizure/myoclonic-like activity witnessed by the niece's Unsure if it is related to alcohol withdrawal versus Warnicke's encephalopathy CTA head/neck negative Brain MRI negative for acute stroke EEG 03/29/2024 shows generalized slowing with no seizure-like activity Tox screen was positive for benzodiazepine but he did get midazolam Alcohol negative Ammonia within normal limit Keppra loaded and started on 03/29/2024 -- History of stroke 02/25/2024 Supposed to be on dual antiplatelet therapy aspirin and Plavix as well as Crestor 40 mg --History of alcohol abuse -- 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 Cardiac - -- Hypertension and dyslipidemia On amlodipine at home EKG 03/28/2024 1 PM: Normal sinus rhythm, normal axis, no ST-T wave changes appreciated 2D echo 10/11/2022: EF 60-65%, grade 1 diastolic dysfunction, mild concentric LVH, RV normal in size and function Respiratory - --Patient seems to have central sleep apneas Could be central Would recommend BiPAP whenever patient is asleep -- S/p VDRF Extubated 03/30/2024 GI - -- No acute issues RENAL/LYTES - -- PETTY--> improving Baseline creatinine is 0.8 Likely prerenal Avoid nephrotoxic medication -- Rhabdomyolysis CPK 1156 03/28/24 Continue with IV fluids ENDO - -- Diabetes type 2 Continue with ICU hypoglycemia protocol HEME - --New onset thrombocytopenia Continue to trend If it is significantly trending down I would recommend to hold heparin -- Normocytic anemia Monitor H&H ID - -- No clear source of infection, spiking fever of 38 Chest x-ray clean UA negative for leukocyte esterase or bacteria He does have abrasions on the back --Prophylaxis VTE:IPC GI:None Lines: Peripheral Diet: Tube feeds Plan: In/out: -917, urine output 2852 Chest x-ray from today does not show any abnormalities when it comes to pulmonary Continue with Zosyn for total of 5 days Hypokalemia and hypomagnesemia being replaced Continue with Keppra Continue with IV fluids Hemodynamically stable to be downgrade to medical floor Patient would not want to have prolonged intubation. As per the patient as well as family he wants to be DNR/DNI but okay to continue with the current measures and if there is no improvement then no further escalation of care Please note the above document was generated using voice recognition software. It may contain grammatical, syntax or spelling errors.Any formal questions or concerns about the content, text or information contained within the body of this dictation should be directly addressed to the provider for clarification. Admission and Anticipated Discharge Date Admission Date: March 28, 2024 Subjective Patient seen and examined at bedside. No acute distress, no adverse events overnight He was awake alert oriented answering all the questions appropriately Denied any headache, no abdominal pain, no nausea vomiting No shortness of breath Saturating well on room air, systolic blood pressure was actually 170s but it did go down to 140. Review of Systems 2 Review of Systems: All systems reviewed & are unremarkable except as noted in Subjective Physical Exam 2 Physical Exam: Constitutional: No acute distress HEENT: PERRLA, EOMI Respiratory system: Decreased air entry bilaterally, no wheeze, no rhonchi, positive crackles bilaterally CVS: S1-S2 positive, no murmurs or gallops Abdomen: Soft, nontender, nondistended, positive bowel sounds x4 Extremities: +2 pulses bilaterally radialis/ dorsalis pedis, no cyanosis, no edema Neuro: Awake alert oriented to self Psych: Normal mood and affect G/U: Positive Poole Skin: no rashes, warm and dry Lymphatic: no cervical or axillary lymphadenopathy Results & Data Results & Data Vital Signs (Past 12 Hours) Vital Signs Temp Pulse Pulse Resp BP BP Pulse Ox 03/31/24 03:12 64 17 120/73 97 03/31/24 02:00 59 L 17 94 03/31/24 01:09 65 14 97 03/31/24 00:00 68 19 97 03/30/24 23:03 63 18 97 03/30/24 22:40 64 12 99 03/30/24 22:00 62 17 97 03/30/24 22:00 37 C 61 20 160/86 H 98 03/30/24 21:09 68 18 97 03/30/24 20:03 61 13 97 03/30/24 20:00 03/30/24 20:00 37.7 C H 65 18 158/84 H 95 O2 Del Method FiO2 03/31/24 03:12 03/31/24 02:00 03/31/24 01:09 03/31/24 00:00 03/30/24 23:03 03/30/24 22:40 25 03/30/24 22:00 03/30/24 22:00 Room Air 03/30/24 21:09 03/30/24 20:03 03/30/24 20:00 Room Air 03/30/24 20:00 Room Air Laboratory Results 03/31/24 04:16 03/31/24 04:16 Coding Level of Care Code 24909 SUB INP/OBS CARE 3/50MIN Diagnoses Metabolic encephalopathy G93.41 Acute renal failure N17.9 HTN (hypertension) I10
--- NOTE | 2024-03-31 09:28 | XRay Report ---
XR chest 1V portable CLINICAL HISTORY: crackles COMPARISON STUDY: Chest CT July 16, 2017. Chest radiograph March 29, 2020 4. FINDINGS: The endotracheal tube has been removed. Extensive spinal fusion is partially imaged. There is no pneumothorax or pleural effusion. There is no evidence for pulmonary edema. There is no consoli dation to suggest pneumonia. IMPRESSION: No acute cardiopulmonary findings. ACT 112: Negative or not required by law. Electronically signed by: Hossein Mathur M.D. 03/31/2024 9:27 AM
[2024-03-31] MEDS: POTASSIUM CHLORIDE CRTAB 20 MEQ TABCR PO STA (10:10)
[2024-03-31] MEDS: CYANOCOBALAMIN (B-12) 500 MCG TABLET PO SCH (10:12)
[2024-03-31] MEDS: FOLIC ACID 1 MG TAB PO SCH (10:12)
[2024-03-31] MEDS: MULTIVITAMIN TAB PO SCH (10:13)
[2024-03-31] MEDS: ROSUVASTATIN CALCIUM 20 MG TAB PO SCH (10:13)
[2024-03-31] MEDS: POTASSIUM CHLORIDE 20 MEQ/15 ML UDC PO STA (11:36)
--- NOTE | 2024-03-31 13:36 | Communication Note ---
Date of Service: March 31, 2024 Okay to continue Keppra 500 mg twice daily for concerns of seizures.
[2024-03-31] MEDS: PIPERACILLIN/TAZOBACTAM 4.5 GM/100 ML BAG IV SCH (14:26)
[2024-03-31] MEDS: FAMOTIDINE 20 MG TAB PO SCH (20:10)
[2024-03-31] MEDS: levETIRAcetam 500 MG TAB PO SCH (20:10)
[2024-03-31] MEDS: levETIRAcetam 250 MG TAB PO SCH (20:11)
[2024-04-01 04:18] LABS: Hematocrit (blood only) 29.8 % (42.0-52.0); Mean Corpuscular Hemoglobin 29.6 pg (25.0-34.0); Mean Corpuscular Hgb Conc 33.6 g/dL (32.0-36.0); Mean Corpuscular Volume 88.2 fL (80.0-100.0); Mean Platelet Volume 12.2 fL (9.4-12.4); Platelet Count 156 K/uL (130-400); RDW Coefficient of Variation 13.9 % (11.5-14.5); RDW Standard Deviation 44.6 fL (36.4-46.3); Red Blood Count 3.38 M/uL (4.70-6.10); White Blood Count 5.32 K/ul (4.8-10.8)
[2024-04-01 04:34] LABS: BUN Creatinine Ratio 22.7 (10-20); Magnesium 1.5 mg/dl (1.7-2.4); Phosphorus 2.9 mg/dl (2.5-4.9); Potassium 3.7 mmol/L (3.5-5.1)
[2024-04-01 06:58] LABS: 7-Aminoclonaz, Confirm NEGATIVE ng/mL (<25); Hydro-Alp Ur, GC/MS NEGATIVE ng/mL (<25); Hydroxyethylflurazepam, Conf NEGATIVE ng/mL (<50); Hydroxymidazolam Ur, GC/MS NEGATIVE ng/mL (<50); Hydroxytriazolam NEGATIVE ng/mL (<50); Lorazepam, Ur GC/MS NEGATIVE ng/mL (<50); Nordiazepam, Confirm NEGATIVE ng/mL (<50); Oxazepam Ur, GC/MS 241 ng/mL (<50); Temazepam, Confirm NEGATIVE ng/mL (<50)
--- NOTE | 2024-04-01 09:51 | Hospitalist Progress Note ---
Date of Service April 01, 2024 Assessment & Plan (1) Unresponsive: (2) Acute renal failure: (3) CVA (cerebral vascular accident): (4) History of ETOH abuse: (5) Coronary artery disease: (6) Diabetes mellitus, type 2: (7) HTN (hypertension): Plan: Unresponsive Acute metabolic encephalopathy Unclear etiology DD: Alcohol withdrawal, seizure activity, med overdose Patient is 78 year old male with PMH HTN, HLD, CAD, prediabetes, chronic anemia, alcohol use, CVA presented to ER as was found unresponsive lying on floor today. 02/2024 hospitalized with acute to subacute CVA, alcohol withdrawal and recommended aspirin, Plavix, Crestor. Per family patient likely not taking medications as mentioned he lost his medications. Patient intubated by EMS. CT Head: No acute intracranial findings. No change in appearance of the brain. 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 Exam mildly compromised given associated streak artifact. CTA Head & Neck: Streak artifact related to the aneurysm coils within the anterior communicating artery limits the study. Short segment high-grade stenosis versus occlusion involving a left M2 branch within the sylvian fissure is unchanged from the 02/25/2024 exam. 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 MRI brain- negative for acute stroke With questionable seizure/myoclonic-like activity CXR: Endotracheal tube overlies the midline, 5.9 cm superior to the gordo. The lungs appear clear. No pneumothorax. Unclear etiology. Possible alcohol withdrawal, however unclear when patient last consumed. Fever 38, Chest x-ray clear, UA negative for leukocyte esterase or bacteria, He does have large abrasion/wound on the back ETOH negative. 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 wound care for back abrasion/wound Keppra loaded and started on 03/29/2024 for poss. seizure/myoclonic-like activity - discussed w/ neuro - will cont. Neurology consulted - 1) Unresponsive: .was found down, unsure about the immediate etiology, hypotension versus alcohol induced/alcohol withdrawal seizure versus encephalopathy (2) Metabolic encephalopathy: MRI of the brain shows no acute changes as well as CTA. EEG also shows generalized slowing with no evidence of seizure activity Plan Continue supportive medical care to treat his acute renal failure, possible infections, arrhythmias. Restart his home medications. For stroke prevention continue aspirin and Plavix for 3 months. Continue statins. Recommend psychiatry evaluation the patient appears to be paranoid, cannot exclude Wernicke's with confabulation. The patient has been receiving thiamine and folate. PT OT ST evaluation and treat. No further recommendations from neurology PETTY BUN: 91,Cr 5.8 Baseline ~0.8 Avoid nephrotoxic agent when possible Renal ultrasound - Slightly increased renal cortical echogenicity bilaterally is nonspecific but can be seen in renal insufficiency. No hydronephrosis or ureterolithiasis is seen. The urinary bladder is completely decompressed by a Poole catheter. Borderline splenomegaly. Nephrology consulted and following Cr improving, now 1.3 Rhabdomyolysis Frequent falls, ambulatory dysfunction CK elevated at 1,100 receiving IVF, CK trending down nephrology following History of CVA Previously prescribed aspirin, Plavix and rosuvastatin. Per family appears patient has not been taking History of alcohol abuse Recent hospitalization with treatment for alcohol withdrawal Unclear when last EtOH consumed In ER EtOH level negative urine tox posit. for benzos (received midazolam on admission) HTN Prescribed amlodipine at home. Unclear if patient has been taking Dyslipidemia Prescribed rosuvastatin Prediabetes A1c: 5.8 in 02/2024 DVT Prophylaxis SCDs, heparin - monitor as + thrombocytopenia Dispo: PCU DNR/DNI - per discussion w/ family Admission and Anticipated Discharge Date Admission Date: March 28, 2024 Subjective Pt seen in follow up - extubated Currently awake, alert and answers simple questions appropriately. He is cooperative. Previously discussed w/ pt's niece. Pt was recently hospitalized for cva and etoh withdrawal, then discharged to rehab. since then pt has been home. Denies chest pain, shortness of breath, abd. pain, n/v Does not recall events prior to being admitted to the hospital Cr down to 1.3 Review of Systems Review of Systems: All systems reviewed & are unremarkable except as noted in Subjective Physical Exam Physical Exam: General Appearance: slim M in NAD Head: normocephalic, Atraumatic Eyes: normal inspection Neck: supple Respiratory/Chest: Normal breath sounds, CTA Cardiovascular: S1, S2, No murmur Abdomen/GI:Soft, Bowel sounds present Extremities/Musculoskeletal:normal inspection, no edema Neurologic/Psych: awake, alert, answers simple questions, follows commands Skin: warm, dry, large abrasion/wound on pt's back Results & Data Results & Data Vital Signs (Past 12 Hours) Vital Signs Temp Pulse Pulse Resp BP Pulse Ox O2 Del Method 04/01/24 08:00 65 04/01/24 07:51 36.7 C 66 23 141/70 H 96 Room Air 04/01/24 03:00 36.6 C 71 16 157/69 H 97 Room Air 03/31/24 23:00 36.7 C 66 20 123/60 98 Room Air Laboratory Results 04/01/24 03/28/24 Range/Units 03:52 Unknown WBC 5.32 (4.8-10.8) K/ul RBC 3.38 L (4.70-6.10) M/uL Hgb 10.0 L (14.0-18.0) g/dl Hct 29.8 L (42.0-52.0) % MCV 88.2 (80.0-100.0) fL MCH 29.6 (25.0-34.0) pg MCHC 33.6 (32.0-36.0) g/dL RDW Std Deviation 44.6 (36.4-46.3) fL RDW Coeff of Art 13.9 (11.5-14.5) % Plt Count 156 (130-400) K/uL MPV 12.2 (9.4-12.4) fL Sodium 143 (136-145) mmol/L Potassium 3.7 (3.5-5.1) mmol/L Chloride 108 H (98-107) mmol/L Carbon Dioxide 27 (21-32) mmol/L Anion Gap 8 (3-11) BUN 29 H (6-23) mg/dl Creatinine 1.28 D (0.6-1.4) mg/dl Est Cr Clr Drug Dosing 49.0 ml/min eGFR 57.64 BUN/Creatinine Ratio 22.7 H (10-20) Glucose 99 (70-99(Fasting)) mg/dl Calcium 9.0 (8.6-10.3) mg/dl Phosphorus 2.9 (2.5-4.9) mg/dl Magnesium 1.5 L (1.7-2.4) mg/dl U OH-Alprazolam Confrm NEGATIVE (<25) ng/mL 7-Amino Clonazepam NEGATIVE (<25) ng/mL Ur Nordiazepam Confirm NEGATIVE (<50) ng/mL U OH-ethylflurazepam NEGATIVE (<50) ng/mL U Lorazepam Cnf GC/MS NEGATIVE (<50) ng/mL U Oxazepam Confm GC/MS 241 H (<50) ng/mL Ur Temazepam Confirm NEGATIVE (<50) ng/mL U OH-Triazolam Confirm NEGATIVE (<50) ng/mL U OH-Midazolam Confirm NEGATIVE (<50) ng/mL Drug Screen Comment SEE NOTE Medications Administered Current Inpatient Medications Aspirin (Aspirin 81 Mg Chew) 81 mg PO DAILY KALI Stop: 04/28/24 08:59 Last Admin: 04/01/24 08:58 Dose: 81 mg Clopidogrel Bisulfate (Clopidogrel Bisulfate 75 Mg Tab) 75 mg PO QAM KALI Stop: 04/28/24 08:59 Last Admin: 04/01/24 08:59 Dose: 75 mg Cyanocobalamin (Cyanocobalamin (B-12) 500 Mcg Tablet) 1,000 mcg PO QAM KALI Stop: 04/30/24 08:59 Last Admin: 04/01/24 08:57 Dose: 1,000 mcg Dextrose (Dextrose 50% 50 Ml Syringe) 25 - 50 ml IV UD PRN; Protocol PRN Reason: Hypoglycemia Protocol Stop: 04/27/24 20:50 Last Admin: 03/28/24 21:24 Dose: 25 ml Famotidine (Famotidine 20 Mg Tab) 20 mg PO HS KALI Stop: 04/30/24 20:59 Last Admin: 03/31/24 20:10 Dose: 20 mg Folic Acid (Folic Acid 1 Mg Tab) 1 mg PO QAM KALI Stop: 04/30/24 08:59 Last Admin: 04/01/24 08:57 Dose: 1 mg Glucagon (Glucagon For Inj 1 Mg Vial) 1 mg SQ UD PRN; Protocol PRN Reason: Hypoglycemia Protocol Stop: 04/27/24 20:50 Glucose (Glucose 40% Gel 15 Gm Tube) 15 - 30 gm PO UD PRN; Protocol PRN Reason: Hypoglycemia Protocol Stop: 04/27/24 20:50 Glucose (Glucose 10 Tab/Tube) 4 - 8 tab PO UD PRN; Protocol PRN Reason: Hypoglycemia Protocol Stop: 04/27/24 20:50 Heparin Sodium (Porcine) (Heparin Sod 5,000 Unit/0.5 Ml Vial) 5,000 units SQ Q12 KALI Stop: 04/28/24 08:59 Last Admin: 03/31/24 20:14 Dose: 5,000 units Piperacillin Sod/Tazobactam Sod (Zosyn) 4.5 gm in 100 mls @ 25 mls/hr IV Q8H KALI; Protocol Stop: 04/02/24 23:59 Last Admin: 04/01/24 06:17 Dose: 25 mls/hr Magnesium Sulfate/Dextrose (Magnesium Sulfate / D5w) 1 gm in 100 mls @ 50 mls/hr IV ONE ONE Stop: 04/01/24 11:48 Lansoprazole (Lansoprazole 30 Mg Soltab) 30 mg PO QAM KALI Stop: 04/28/24 08:59 Last Admin: 04/01/24 08:58 Dose: 30 mg Levetiracetam (Levetiracetam 500 Mg Tab) 500 mg PO BID KALI Stop: 04/30/24 20:59 Last Admin: 04/01/24 08:57 Dose: 500 mg Levetiracetam (Levetiracetam 250 Mg Tab) 250 mg PO BID KALI Stop: 04/30/24 20:59 Last Admin: 04/01/24 08:57 Dose: 250 mg Magnesium Oxide (Magnesium Oxide 400 Mg Tab) 400 mg PO BID KALI Stop: 05/01/24 09:59 Miscellaneous (Carbohydrates For Hypoglycemia ) 15 - 30 gm PO UD PRN PRN Reason: Hypoglycemia Protocol Stop: 04/27/24 20:50 Multivitamins (Multivitamin Tab) 1 tab PO QAM KALI Stop: 04/30/24 08:59 Last Admin: 04/01/24 08:57 Dose: 1 tab Potassium Chloride (Potassium Chloride Crtab 20 Meq Tabcr) 40 meq PO NOW STA Stop: 04/01/24 09:51 Rosuvastatin Calcium (Rosuvastatin Calcium 20 Mg Tab) 40 mg PO DAILY KALI Stop: 04/30/24 08:59 Last Admin: 04/01/24 08:57 Dose: 40 mg Thiamine HCl (Thiamine Hcl 100 Mg Tab) 200 mg PO BID KALI Stop: 04/29/24 20:59 Last Admin: 04/01/24 08:59 Dose: 200 mg
[2024-04-01] MEDS: MAGNESIUM OXIDE 400 MG TAB PO SCH (10:09)
[2024-04-01] MEDS: MAGNESIUM SULFATE / D5W 1 GM/100 ML BAG IV ONE (10:09)
[2024-04-01] MEDS: POTASSIUM CHLORIDE CRTAB 20 MEQ TABCR PO STA (10:09)
[2024-04-02 03:59] LABS: Hematocrit (blood only) 29.8 % (42.0-52.0); Mean Corpuscular Hemoglobin 29.9 pg (25.0-34.0); Mean Corpuscular Hgb Conc 33.6 g/dL (32.0-36.0); Mean Platelet Volume 11.8 fL (9.4-12.4); Platelet Count 156 K/uL (130-400); RDW Coefficient of Variation 13.7 % (11.5-14.5); RDW Standard Deviation 44.7 fL (36.4-46.3); Red Blood Count 3.35 M/uL (4.70-6.10); White Blood Count 5.24 K/ul (4.8-10.8)
[2024-04-02 04:16] LABS: BUN Creatinine Ratio 17.9 (10-20); Calcium 8.7 mg/dl (8.6-10.3); Creatinine Clr Calc Pharmacy 53.6 ml/min; Magnesium 1.5 mg/dl (1.7-2.4); Phosphorus 2.7 mg/dl (2.5-4.9); Potassium 3.4 mmol/L (3.5-5.1)
[2024-04-02] MEDS: ACETAMINOPHEN 325 MG TAB PO SCH (12:18)
--- NOTE | 2024-04-02 17:48 | Hospitalist Progress Note ---
Date of Service April 02, 2024 Assessment & Plan (1) Unresponsive: (2) Acute renal failure: (3) CVA (cerebral vascular accident): (4) History of ETOH abuse: (5) Coronary artery disease: (6) Diabetes mellitus, type 2: (7) HTN (hypertension): Plan: Unresponsive Acute metabolic encephalopathy Unclear etiology DD: Alcohol withdrawal, seizure activity, med overdose Patient is 78 year old male with PMH HTN, HLD, CAD, prediabetes, chronic anemia, alcohol use, CVA presented to ER as was found unresponsive lying on floor today. 02/2024 hospitalized with acute to subacute CVA, alcohol withdrawal and recommended aspirin, Plavix, Crestor. Per family patient likely not taking medications as mentioned he lost his medications. Patient intubated by EMS. CT Head: No acute intracranial findings. No change in appearance of the brain. 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 Exam mildly compromised given associated streak artifact. CTA Head & Neck: Streak artifact related to the aneurysm coils within the anterior communicating artery limits the study. Short segment high-grade stenosis versus occlusion involving a left M2 branch within the sylvian fissure is unchanged from the 02/25/2024 exam. 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 MRI brain- negative for acute stroke With questionable seizure/myoclonic-like activity CXR: Endotracheal tube overlies the midline, 5.9 cm superior to the gordo. The lungs appear clear. No pneumothorax. Unclear etiology. Possible alcohol withdrawal, however unclear when patient last consumed. Fever 38, Chest x-ray clear, UA negative for leukocyte esterase or bacteria, He does have large abrasion/wound on the back ETOH negative. Urine drug screen positive benzodiazepines however did receive midazolam prior to urine collection ammonia level normal Pt was intubated and admitted to ICU 03/30 extubated Per pulmonary / spa supervisor Sleep apnea --Patient seems to have central sleep apneas Could be central Would recommend BiPAP whenever patient is asleep Continue zosyn. wound care for back abrasion/wound Keppra loaded and started on 03/29/2024 for poss. seizure/myoclonic-like activity - discussed w/ neuro - will cont. Neurology consulted - 1) Unresponsive: .was found down, unsure about the immediate etiology, hypotension versus alcohol induced/alcohol withdrawal seizure versus encephalopathy (2) Metabolic encephalopathy: MRI of the brain shows no acute changes as well as CTA. EEG also shows generalized slowing with no evidence of seizure activity Plan Continue supportive medical care to treat his acute renal failure, possible infections, arrhythmias. Restart his home medications. For stroke prevention continue aspirin and Plavix for 3 months. Continue statins. Recommend psychiatry evaluation the patient appears to be paranoid, cannot exclude Wernicke's with confabulation. The patient has been receiving thiamine and folate. PT OT ST evaluation and treat. No further recommendations from neurology PETTY BUN: 91,Cr 5.8 Baseline ~0.8 Avoid nephrotoxic agent when possible Renal ultrasound - Slightly increased renal cortical echogenicity bilaterally is nonspecific but can be seen in renal insufficiency. No hydronephrosis or ureterolithiasis is seen. The urinary bladder is completely decompressed by a Poole catheter. Borderline splenomegaly. Nephrology consulted and following Cr improving, now 1.2 Rhabdomyolysis Frequent falls, ambulatory dysfunction CK elevated at 1,100 receiving IVF, CK trending down nephrology consulted History of CVA Previously prescribed aspirin, Plavix and rosuvastatin. Per family appears patient has not been taking History of alcohol abuse Recent hospitalization with treatment for alcohol withdrawal Unclear when last EtOH consumed In ER EtOH level negative urine tox posit. for benzos (received midazolam on admission) HTN Prescribed amlodipine at home. Unclear if patient has been taking Dyslipidemia Prescribed rosuvastatin Prediabetes A1c: 5.8 in 02/2024 DVT Prophylaxis SCDs, heparin now on hold as increased bleeding from back wound Dispo: PCU -> med/ tele DNR/DNI - per discussion w/ family Admission and Anticipated Discharge Date Admission Date: March 28, 2024 Subjective Pt seen in follow up - extubated Currently awake, alert and answers simple questions appropriately. He is cooperative. Previously discussed w/ pt's niece. Pt was recently hospitalized for cva and etoh withdrawal, then discharged to rehab. since then pt has been home. Denies chest pain, shortness of breath, abd. pain, n/v Does not recall events prior to being admitted to the hospital Cr down to 1.2 CM involved in DC planning Review of Systems Review of Systems: All systems reviewed & are unremarkable except as noted in Subjective Physical Exam Physical Exam: General Appearance: slim M in NAD Head: normocephalic, Atraumatic Eyes: normal inspection Neck: supple Respiratory/Chest: Normal breath sounds, CTA Cardiovascular: S1, S2, No murmur Abdomen/GI:Soft, Bowel sounds present Extremities/Musculoskeletal:normal inspection, no edema Neurologic/Psych: awake, alert, answers simple questions, follows commands Skin: warm, dry, + large abrasion/wound on pt's back Results & Data Results & Data Vital Signs (Past 12 Hours) Vital Signs Temp Pulse Pulse Resp BP BP Pulse Ox 04/02/24 16:00 77 04/02/24 14:52 36.8 C 64 18 158/92 H 98 04/02/24 08:39 36.9 C 04/02/24 08:06 60 20 04/02/24 08:00 56 L 04/02/24 07:12 67 20 133/97 97 04/02/24 06:00 61 16 109/53 L O2 Del Method 04/02/24 16:00 04/02/24 14:52 Room Air 04/02/24 08:39 04/02/24 08:06 04/02/24 08:00 04/02/24 07:12 04/02/24 06:00 Laboratory Results 04/02/24 Range/Units 03:39 WBC 5.24 (4.8-10.8) K/ul RBC 3.35 L (4.70-6.10) M/uL Hgb 10.0 L (14.0-18.0) g/dl Hct 29.8 L (42.0-52.0) % MCV 89.0 (80.0-100.0) fL MCH 29.9 (25.0-34.0) pg MCHC 33.6 (32.0-36.0) g/dL RDW Std Deviation 44.7 (36.4-46.3) fL RDW Coeff of Art 13.7 (11.5-14.5) % Plt Count 156 (130-400) K/uL MPV 11.8 (9.4-12.4) fL Sodium 141 (136-145) mmol/L Potassium 3.4 L (3.5-5.1) mmol/L Chloride 107 (98-107) mmol/L Carbon Dioxide 26 (21-32) mmol/L Anion Gap 8 (3-11) BUN 21 (6-23) mg/dl Creatinine 1.17 (0.6-1.4) mg/dl Est Cr Clr Drug Dosing 53.6 ml/min eGFR 64.21 BUN/Creatinine Ratio 17.9 (10-20) Glucose 96 (70-99(Fasting)) mg/dl Calcium 8.7 (8.6-10.3) mg/dl Phosphorus 2.7 (2.5-4.9) mg/dl Magnesium 1.5 L (1.7-2.4) mg/dl Medications Administered Current Inpatient Medications Acetaminophen (Acetaminophen 325 Mg Tab) 650 mg PO Q4H [facility] Stop: 05/02/24 12:14 Last Admin: 04/02/24 12:18 Dose: 650 mg Aspirin (Aspirin 81 Mg Chew) 81 mg PO DAILY [facility] Stop: 04/28/24 08:59 Last Admin: 04/02/24 08:32 Dose: 81 mg Clopidogrel Bisulfate (Clopidogrel Bisulfate 75 Mg Tab) [facility] [place] [facility]: 04/28/24 08:59 Last Admin: 04/02/24 08:31 Dose: 75 mg Cyanocobalamin (Cyanocobalamin (B-12) 500 Mcg Tablet) 1,000 mcg PO QAM [facility] Stop: 04/30/24 08:59 Last Admin: 04/02/24 08:32 Dose: 1,000 mcg Dextrose (Dextrose 50% 50 Ml Syringe) 25 - 50 ml IV UD PRN; Protocol PRN Reason: Hypoglycemia Protocol Stop: 04/27/24 20:50 Last Admin: 03/28/24 21:24 Dose: 25 ml Famotidine (Famotidine 20 Mg Tab) 20 mg PO HS [facility] Stop: 04/30/24 20:59 Last Admin: 04/01/24 20:16 Dose: 20 mg Folic Acid (Folic Acid 1 Mg Tab) 1 mg PO QAM [facility] Stop: 04/30/24 08:59 Last Admin: 04/02/24 08:32 Dose: 1 mg Glucagon (Glucagon For Inj 1 Mg Vial) 1 mg SQ UD PRN; Protocol PRN Reason: Hypoglycemia Protocol Stop: 04/27/24 20:50 Glucose (Glucose 40% Gel 15 Gm Tube) 15 - 30 gm PO UD PRN; Protocol PRN Reason: Hypoglycemia Protocol Stop: 04/27/24 20:50 Glucose (Glucose 10 Tab/Tube) 4 - 8 tab PO UD PRN; Protocol PRN Reason: Hypoglycemia Protocol Stop: 04/27/24 20:50 Heparin Sodium (Porcine) (Heparin Sod 5,000 Unit/0.5 Ml Vial) 5,000 units SQ Q1 2 [facility] Stop: 04/28/24 08:59 Last Admin: 04/01/24 10:09 Dose: 5,000 units Piperacillin Sod/Tazobactam Sod (Zosyn) 4.5 gm in 100 mls @ 25 mls/hr IV Q8H [facility]; Protocol Stop: 04/04/24 23:59 Last Admin: 04/02/24 13:25 Dose: 25 mls/hr Magnesium Sulfate/Dextrose (Magnesium Sulfate / D5w) 1 gm in 100 mls @ 50 mls/hr IV ONE ONE Stop: 04/02/24 19:42 Lansoprazole (Lansoprazole 30 Mg Soltab) 30 mg PO QAM [facility] Stop: 04/28/24 08:59 Last Admin: 04/02/24 08:32 Dose: 30 mg Levetiracetam (Levetiracetam 500 Mg Tab) 500 mg PO BID [facility] Stop: 04/30/24 20:59 Last Admin: 04/02/24 08:31 Dose: 500 mg Levetiracetam (Levetiracetam 250 Mg Tab) 250 mg PO BID [facility] Stop: 04/30/24 20:59 Last Admin: 04/02/24 08:32 Dose: 250 mg Magnesium Oxide (Magnesium Oxide 400 Mg Tab) 400 mg PO BID [facility] Stop: 05/01/24 09:59 Last Admin: 04/02/24 08:31 Dose: 400 mg Miscellaneous (Carbohydrates For Hypoglycemia ) 15 - 30 gm PO UD PRN PRN Reason: Hypoglycemia Protocol Stop: 04/27/24 20:50 Multivitamins (Multivitamin Tab) 1 tab PO QAM [facility] Stop: 04/30/24 08:59 Last Admin: 04/02/24 08:32 Dose: 1 tab Potassium Chloride (Potassium Chloride Crtab 20 Meq Tabcr) 40 meq PO NOW STA Stop: 04/02/24 17:44 Rosuvastatin Calcium (Rosuvastatin Calcium 20 Mg Tab) 40 mg PO DAILY [facility] Stop: 04/30/24 08:59 Last Admin: 04/02/24 08:31 Dose: 40 mg Thiamine HCl (Thiamine Hcl 100 Mg Tab) 200 mg PO BID [facility] Stop: 04/29/24 20:59 Last Admin: 04/02/24 08:31 Dose: 200 mg
[2024-04-02] MEDS: MAGNESIUM SULFATE / D5W 1 GM/100 ML BAG IV ONE (18:45)
[2024-04-02] MEDS: POTASSIUM CHLORIDE CRTAB 20 MEQ TABCR PO STA (18:45)
[2024-04-03 06:38] LABS: Hematocrit (blood only) 31.9 % (42.0-52.0); Hemoglobin 10.7 g/dl (14.0-18.0); Mean Corpuscular Hemoglobin 29.7 pg (25.0-34.0); Mean Corpuscular Hgb Conc 33.5 g/dL (32.0-36.0); Mean Corpuscular Volume 88.6 fL (80.0-100.0); Mean Platelet Volume 11.9 fL (9.4-12.4); Platelet Count 162 K/uL (130-400); RDW Coefficient of Variation 13.4 % (11.5-14.5); RDW Standard Deviation 43.7 fL (36.4-46.3); White Blood Count 6.01 K/ul (4.8-10.8)
[2024-04-03 07:04] LABS: BUN Creatinine Ratio 18.9 (10-20); Creatinine Clr Calc Pharmacy 56.5 ml/min; Magnesium 1.7 mg/dl (1.7-2.4); Phosphorus 2.5 mg/dl (2.5-4.9); Potassium 3.9 mmol/L (3.5-5.1)
[2024-04-03] MEDS: ASPIRIN 81 MG ECTAB PO SCH (07:46)
[2024-04-03] MEDS: INFLUENZA VACC TS2024-25(65y+)/PF (IIV3) 0.5mL Syr IM ONE (12:54)
--- NOTE | 2024-04-03 15:13 | Hospitalist Progress Note ---
Date of Service April 03, 2024 Assessment & Plan (1) Unresponsive episode: (2) Acute renal failure: (3) CVA (cerebral vascular accident): (4) History of ETOH abuse: (5) Coronary artery disease: (6) Diabetes mellitus, type 2: (7) HTN (hypertension): (8) Antibiotic-associated diarrhea: (9) Pressure injury of deep tissue of buttock: (10) Metabolic encephalopathy: (11) Traumatic rhabdomyolysis: Plan Patient presented with what appears to be an acute unresponsive episode with metabolic encephalopathy, acute kidney injury, deep tissue injury on the buttocks, and rhabdomyolysis. These issues have significantly improved. Renal functions returned to baseline. Patient also had recent CVA. No evidence of recurrent stroke. Okay for MedSurg Restart amlodipine for better blood pressure control Continue dual antiplatelet therapy as recommended by neurology for patient's history of recent stroke Continue to encourage therapies Discontinue Poole catheter, voiding trial Patient is having several incontinent loose mucousy stools today. Highly concern for possible C. difficile in the setting of Zosyn treatment. C. difficile testing pending Discontinue Zosyn, reviewed imaging of deep tissue/shear wound of the buttocks. Does not appear to be cellulitic. Do not feel it needs antibiotic treatment at this time. Continue wound care as directed by the wound care team. Reviewed glucose, continue current diabetes management Case management investing dating skilled rehab options Admission and Anticipated Discharge Date Admission Date: March 28, 2024 Subjective Patient feels that he is getting steadily stronger. Physical Exam Physical Exam: Constitutional: Alert, sitting in chair HEENT: Mucous membranes moist. Lungs: Clear to auscultation, decreased, no wheezes rales or rhonchi CV: S1-S2, regular Abdomen: Soft, nontender, nondistended Extremities: No significant edema Neuro: No focal deficits, generalized weakness Psych: Cooperative, normal mood Derm: Reviewed image of wound on buttocks Results & Data Results & Data Vital Signs (Past 12 Hours) Vital Signs Temp Pulse Pulse Resp BP Pulse Ox O2 Del Method 04/03/24 14:07 96 H 04/03/24 11:00 36.6 C 88 18 126/79 98 Room Air 04/03/24 07:51 36.6 C 60 20 193/66 H 99 Room Air 04/03/24 07:27 57 L 04/03/24 03:34 36.4 C L 55 L 18 162/68 H 98 Room Air Diagnostic Findings Reviewed imaging, laboratory and diagnostic studies. Pertinent findings as below.
[2024-04-03 15:17] LABS: Cdiff Toxin B Gene (2yr or >) Positive Cdiff Gene (Neg)
[2024-04-03] MEDS: amLODIPine BESYLATE 5 MG TAB PO SCH (15:57)
[2024-04-03 16:04] LABS: Cdiff Antigen Positive; Cdiff Toxin A+B Negative Cdiff Toxin (Negative)
--- NOTE | 2024-04-04 14:56 | Hospitalist Progress Note ---
Date of Service April 04, 2024 Assessment & Plan (1) Unresponsive episode: (2) Seizure as late effect of cerebrovascular accident (CVA): (3) Acute renal failure: (4) CVA (cerebral vascular accident): (5) History of ETOH abuse: (6) Coronary artery disease: (7) Diabetes mellitus, type 2: (8) HTN (hypertension): (9) Antibiotic-associated diarrhea: (10) Pressure injury of deep tissue of buttock: (11) Metabolic encephalopathy: (12) Traumatic rhabdomyolysis: Plan Patient with unresponsive episode questionable seizure-like activity observed by family. May be a result of recent CVA. Patient continues to do well. Tolerating current medical regimen no recurrent seizures observed Continue therapies Pursuing rehab placement Continue wound care Blood pressure improved control with starting amlodipine Admission and Anticipated Discharge Date Admission Date: March 28, 2024 Subjective Patient no complaints. Feeling like he is getting stronger. Hopeful that he can get to rehab. Patient reports no further diarrhea Physical Exam Physical Exam: Constitutional: Alert, standing up washing face in bathroom Lungs: Clear to auscultation, decreased, no wheezes rales or rhonchi CV: S1-S2, regular Abdomen: Soft, nontender, nondistended Extremities: No significant edema Neuro: No focal deficits Derm, dressing over tissue wound on buttocks Psych: Cooperative, normal mood Results & Data Results & Data Vital Signs (Past 12 Hours) Vital Signs Temp Pulse Resp BP Pulse Ox O2 Del Method 04/04/24 08:00 36.6 C 72 18 128/78 98 Room Air Diagnostic Findings C. difficile toxin negative
[2024-04-05 06:42] LABS: BUN Creatinine Ratio 19.6 (10-20); Calcium 9.1 mg/dl (8.6-10.3); Creatinine Clr Calc Pharmacy 64.7 ml/min; Potassium 4.1 mmol/L (3.5-5.1)
--- NOTE | 2024-04-05 13:15 | Hospitalist Progress Note ---
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 Good candidate for rehabilitation. Still requiring some assistance. Metabolic encephalopathy has cleared Increase amlodipine for better blood pressure control, give additional 5 mg today Continue other medical regimen Continue therapies Continue to monitor glucose with subcutaneous insulin management, glucose is well-controlled Case management pursuing rehab placement Admission and Anticipated Discharge Date Admission Date: March 28, 2024 Subjective No acute issues overnight. Patient feels as though he is getting better each day. Really hopeful that he can get to rehab Physical Exam Physical Exam: Constitutional: Alert, nontoxic HEENT: Mucous membranes moist. Lungs: Clear to auscultation, decreased, no wheezes rales or rhonchi CV: S1-S2, regular Abdomen: Soft, nontender, nondistended Extremities: No significant edema Neuro: No focal deficits, generalized weakness Psych: Cooperative, normal mood Results & Data Results & Data Vital Signs (Past 12 Hours) Vital Signs Temp Pulse Resp BP BP Pulse Ox O2 Del Method 04/05/24 07:15 36.6 C 71 16 177/73 H 177/72 H 100 Room Air Laboratory Results Reviewed imaging, laboratory and diagnostic studies. Pertinent findings as below. BMP stable
[2024-04-05] MEDS: amLODIPine BESYLATE 5 MG TAB PO ONE (14:16)
[2024-04-06] MEDS: amLODIPine BESYLATE 5 MG TAB PO SCH (09:08)
--- NOTE | 2024-04-06 14:42 | Hospitalist Progress Note ---
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): (3) Acute renal failure: (4) CVA (cerebral vascular accident): (5) History of ETOH abuse: (6) Coronary artery disease: (7) Diabetes mellitus, type 2: (8) HTN (hypertension): (9) Antibiotic-associated diarrhea: (10) Pressure injury of deep tissue of buttock: (11) Metabolic encephalopathy: (12) Traumatic rhabdomyolysis: Plan Patient significantly improved and is overall stable, continue therapies Blood pressure appears to be responding to implanted pain increase, continue to monitor Case management continuing to pursue placement options Admission and Anticipated Discharge Date Admission Date: March 28, 2024 Subjective No acute issues overnight. Patient offers no complaints. Physical Exam Physical Exam: Constitutional: Alert Lungs: Decreased CV: S1-S2, regular Abdomen: Soft, Extremities: No significant edema Neuro: No focal deficits Psych: Cooperative, normal mood Results & Data Results & Data Vital Signs (Past 12 Hours) Vital Signs Temp Pulse Pulse Resp BP Pulse Ox O2 Del Method 04/06/24 11:41 36.6 C 72 18 145/69 H 99 Room Air 04/06/24 08:00 72 04/06/24 08:00 36.4 C L 72 18 160/70 H 96 Room Air
[2024-04-07] MEDS: VALSARTAN 80 MG TAB PO SCH (08:24)
--- NOTE | 2024-04-07 10:39 | Hospitalist Progress Note ---
Date of Service April 07, 2024 Assessment & Plan (1) Unresponsive episode: (2) Seizure as late effect of cerebrovascular accident (CVA): (3) Acute renal failure: (4) CVA (cerebral vascular accident): (5) History of ETOH abuse: (6) Coronary artery disease: (7) Diabetes mellitus, type 2: (8) HTN (hypertension): (9) Antibiotic-associated diarrhea: (10) Pressure injury of deep tissue of buttock: (11) Metabolic encephalopathy: (12) Traumatic rhabdomyolysis: Plan Patient continues to improve, patient appears to be back to his baseline mental status, metabolic encephalopathy is cleared, able to make his own decisions and is memory seems to be quite good and the fact that he remembered the details of our conversation yesterday. Continue therapies Add valsartan for better blood pressure control Case management continue to evaluate for possible rehab placement Check BMP in a.m. Admission and Anticipated Discharge Date Admission Date: March 28, 2024 Subjective Patient denied any acute events overnight. No chest pain or shortness of breath. Patient actually remembers our conversation yesterday about POA. He states that he is willing to do what ever he needs to do to get this done. He states he is talked with his niece in the past about POA. She has been agreeable. However, he states that he just put that off. He states he is willing to get the professor of family medicine to draw papers for him to sign if that is what is necessary. Physical Exam Physical Exam: Constitutional: Alert, nontoxic, sitting in chair HEENT: Mucous membranes moist. Lungs: Clear to auscultation, decreased, no wheezes rales or rhonchi CV: S1-S2, regular Abdomen: Soft, nontender, nondistended Extremities: No significant edema Neuro: No focal deficits Psych: Cooperative, normal mood, clear mentation, oriented, able to make decisions Results & Data Results & Data Vital Signs (Past 12 Hours) Vital Signs Temp Pulse Resp BP Pulse Ox O2 Del Method 04/07/24 07:03 36.4 C L 63 16 168/72 H 97 Room Air Diagnostic Findings Reviewed imaging, laboratory and diagnostic studies. Pertinent findings as below.
--- NOTE | 2024-04-07 17:06 | Nephrology Progress Note ---
Date of Service April 07, 2024 Assessment & Plan Admission and Anticipated Discharge Date Admission Date: March 28, 2024 Results & Data Vital Signs (Past 12 Hours) Vital Signs Temp Pulse Resp BP Pulse Ox O2 Del Method 04/07/24 14:59 36.7 C 74 16 126/71 99 Room Air 04/07/24 07:03 36.4 C L 63 16 168/72 H 97 Room Air
[2024-04-08 06:10] LABS: Calcium 9.1 mg/dl (8.6-10.3); Creatinine Clr Calc Pharmacy 78.4 ml/min; Potassium 3.8 mmol/L (3.5-5.1)
--- NOTE | 2024-04-08 10:49 | Hospitalist Progress Note ---
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 Patient able to make his own decisions. Continue to encourage activity and working with therapy Blood pressure has improved with initiation of valsartan and amlodipine, continue current dosages Continue Keppra for suspected seizure prior to admission Case management continue to pursue placement options Admission and Anticipated Discharge Date Admission Date: March 28, 2024 Subjective No acute issues. Patient anxious to get to rehab. Denies any pain or shortness of breath Physical Exam Physical Exam: Constitutional: Alert, nontoxic HEENT: Mucous membranes moist. Lungs: Clear to auscultation, decreased, no wheezes rales or rhonchi CV: S1-S2, regular Abdomen: Soft, nontender, nondistended Extremities: No significant edema Neuro: No focal deficits some mild generalized weakness Psych: Cooperative, normal mood Results & Data Results & Data Vital Signs (Past 12 Hours) Vital Signs Temp Pulse Resp BP Pulse Ox O2 Del Method 04/08/24 07:38 36.4 C L 82 14 121/69 99 Room Air Diagnostic Findings Reviewed BNP, electrolytes stable, creatinine 0.8
--- NOTE | 2024-04-09 13:52 | Hospitalist Progress Note ---
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 I believe he would be an excellent rehab candidate. Case management continue to pursue rehab options Continue current medical therapy Blood pressure well-controlled on current regimen Admission and Anticipated Discharge Date Admission Date: March 28, 2024 Subjective No acute issues overnight. Patient denies any pain or complaints. Physical Exam Physical Exam: Constitutional: Alert, nontoxic HEENT: Mucous membranes moist. Lungs: Clear to auscultation, decreased, no wheezes rales or rhonchi CV: S1-S2, regular Abdomen: Soft, nontender, nondistended Extremities: No significant edema Neuro: No focal deficits, generalized weakness Psych: Cooperative, normal mood Results & Data Results & Data Vital Signs (Past 12 Hours) Vital Signs Temp Pulse Pulse Resp BP Pulse Ox O2 Del Method 04/09/24 11:52 36.5 C 78 16 134/70 100 Room Air 04/09/24 08:00 36.6 C 72 16 148/68 H 99 Room Air 04/09/24 07:15 36.8 C 75 16 138/72 98 Room Air
[2024-04-10] MEDS: TROLAMINE SALICYLATE 10% CRM 255 APPLN/85 GM TUBE EXT PRN (15:27)
--- NOTE | 2024-04-10 15:52 | Hospitalist Progress Note ---
Date of Service April 10, 2024 Assessment & Plan (1) Seizure as late effect of cerebrovascular accident (CVA): (2) Acute renal failure: (3) CVA (cerebral vascular accident): Plan: Within the last 6 weeks (4) History of ETOH abuse: (5) Coronary artery disease: (6) Diabetes mellitus, type 2: (7) HTN (hypertension): (8) Antibiotic-associated diarrhea: (9) Pressure injury of deep tissue of buttock: (10) Metabolic encephalopathy: (11) Traumatic rhabdomyolysis: Plan Patient is continuing to improve, making steady progress, still needing some assistance, definitely displaying good candidacy for rehab Blood pressure overall significantly improved on current medical regimen Continuing to provide wound care for buttocks abrasion/deep tissue injury No evidence of recurrent seizures, continue Keppra Update from case management, unable to get authorization from insurance for SNF rehab, we will attempt [id number] Admission and Anticipated Discharge Date Admission Date: March 28, 2024 Subjective Patient complaining of some shoulder pain asking for some IcyHot cream. Otherwise no acute issues Physical Exam Physical Exam: Constitutional: Alert, sitting in chair HEENT: Mucous membranes moist. Lungs: Clear to auscultation, decreased, no wheezes rales or rhonchi CV: S1-S2, regular Abdomen: Soft, nontender, nondistended Extremities: No significant edema Neuro: No focal deficits Psych: Cooperative, normal mood Results & Data Results & Data Vital Signs (Past 12 Hours) Vital Signs Temp Pulse Resp BP Pulse Ox O2 Del Method 04/10/24 14:35 36.5 C 78 16 123/68 100 Room Air 04/10/24 07:51 Room Air 04/10/24 07:30 36.5 C 75 16 147/72 H 97 Room Air
[2024-04-11 08:16] VITALS: BP 144/72; PULSE 68; RESP 18; TEMP 97.5; O2SAT 96
--- NOTE | 2024-04-11 09:57 | Discharge Summary ---
Discharge Summary Date of Service April 11, 2024 Principal Dx & Hospital Course #1 = Principal Diagnosis (1) Seizure as late effect of cerebrovascular accident (CVA): (2) Acute renal failure: (3) CVA (cerebral vascular accident): Within the last 6 weeks (4) History of ETOH abuse: (5) Coronary artery disease: (6) Diabetes mellitus, type 2: (7) HTN (hypertension): (8) Antibiotic-associated diarrhea: (9) Pressure injury of deep tissue of buttock: (10) Metabolic encephalopathy: (11) Traumatic rhabdomyolysis: Plan Patient presented to the emergency room after being found in his home unrespons oseas and on the floor. Patient had just recently been hospitalized for acute CVA and alcohol withdrawal. He had been discharged to rehab and had recently returned to his home. History was that the patient continued to become weaker and having more difficulty getting around the house. Question whether he was compliant in taking his medications. There is uncertain whether he had reduced started drinking alcohol. Family found him and called EMS. Patient was intubated in the field. Patient was admitted to the ICU. Patient had acute renal failure, evidence of traumatic rhabdomyolysis and encephalopathy. Patient was given hydration. Question whether he may have had a seizure and he was loaded with Keppra. Imaging was unremarkable. EEG was performed and showed some abnormal slowing and encephalopathy but no epileptic forms noted. Critical care consultation was also obtained. Patient steadily improved his renal function rapidly improved and returned to baseline. Neurology consultation was obtained no evidence of recurrent stroke. Recommended continuing the Keppra and continue his usual medicines prior to admission for secondary stroke prevention. Patient's encephalopathy is slowly cleared. He was transferred out of the ICU. Ultimately, suspect patient had a seizure at home unwitnessed due to his previous CVA and previous alcohol use which resulted in a postictal phase causing him to be on the floor for a period of time before being found by family having some traumatic rhabdomyolysis, acute kidney injury and acute respiratory failure. Patient was continued his care in the [facility] unit. Patient did have a deep tissue injury on the his low back sacral area possibly due to the time he spent on the floor. This was evaluated and treated by wound care. His elect rolytes stabilized. His renal function normalized. He was restarted on antihypertensive medications for blood pressure control and secondary stroke prevention. Each day his strength steadily improved with therapies. His mentation returned to baseline. Case management was involved in his care. Patient was extremely deconditioned from his hospitalizations and acute medical issues. He was proven to be a good rehab candidate. After peer to peer conversation with the medical auditor patient was authorized by his insurance to go to [facility] for rehabilitation. On the day of discharge blood pressure is overall well-controlled. Patient able to make his own decisions. His strength is improving. His laboratory studies have been stable. Significant number of his previous medications had been eliminated decreasing of polypharmacy. Overall excellent candidate anticipate he will be able to return home after a [facility] stay. Notes For Next Care Provider Intermittently monitor electrolytes and renal function Medication Changes From Visit Valsartan for blood pressure control Gabapentin, famotidine, hydrochlorothiazide, baclofen, duloxetine, metoprolol, diclofenac gel, oxycodone all discontinued Keppra for suspected seizure Admission HPI Per Admitting Provider Patient is 78 year old male with PMH HTN, HLD, CAD, prediabetes, chronic anemia, alcohol use, CVA presented to ER as was found unresponsive today. History obtained from patient's niece and her who live close by and check in on patient. Recent [facility] hospitalization 02/25/2024-03/04/2024 for acute to subacute CVA, alcohol withdrawal. Was recommended aspirin, Plavix, Crestor. Patient discharged to acute rehab. States since being home was using cane however family have noted patient to become increasingly week over past 2 weeks. Reports checks on patient almost daily and in the past 2 weeks has found patient on 4 approximately 4 times. Patient was unable to get himself up and will need to be lifted back on the couch. States patient's house is very cluttered and he typically lives out of 1 room and sleeps on couch. States past 2 weeks has been using a bucket beside the couch to urinate and defecate in. Family reports patient had stated that he "lost his medications". It is unclear if patient taking any medications since discharge home from rehab. Family report haven't noticed alcohol in house for the past week but are uncertain if patient has been drinking ETOH. States yesterday found patient lying on floor next to couch and assisted put it back on. States at that time patient was alert and oriented and he was refusing to come to the hospital. This morning family checked on patient and found patient on floor next to couch and was unresponsive. Family reports patient appeared to be breathing normally and had his eyes open but was otherwise not responding. EMS transported patient to ER. It is reported EMS gave etomidate, Versed, fentanyl and intubated. Patient's sister lives out of state and is currently at bedside. Patient's niece and her live locally. Patient's niece reports a couple weeks ago during patient's recent hospitalization they had family discussion about his wishes and he had stated that he would not want to "live on machines" and did not want CPR. Family reports patient did not get formal paperwork completed. Currently patient's sister and patient's niece wish to proceed with further workup and treatment and would like to continue intubation, ventilation for several days to determine patient's prognosis but states if patient's heart stops does not want CPR or defibrillation Admission Exam Per Admitting Provider See H&P Discharge Exam Constitutional: Alert, anxious to get discharged to start more aggressive physical therapy HEENT: Mucous membranes moist. Lungs: Clear to auscultation, decreased, no wheezes rales or rhonchi CV: S1-S2, regular Abdomen: Soft, nontender, nondistended Extremities: No significant edema Neuro: No focal deficits, deconditioned Psych: Cooperative, normal mood Updated Medication List Medication Instructions Recorded Confirmed Type clobetasol 0.05 % topical cream 1 appln topical DAILY PRN Skin 01/12/19 03/28/24 History Irritation gabapentin 600 mg tablet 600 mg PO QID 01/12/19 03/28/24 History sildenafil 100 mg tablet 100 mg PO UD PRN Sexual Activity 02/01/19 03/28/24 History amlodipine 5 mg tablet 5 mg PO QAM 12/21/22 03/28/24 History famotidine 20 mg tablet 20 mg PO UD 12/21/22 03/28/24 History hydrochlorothiazide 25 mg tablet 25 mg PO UD 12/21/22 03/28/24 History hydrochlorothiazide 50 mg tablet 50 mg PO UD 12/21/22 03/28/24 History losartan 100 mg tablet 100 mg PO QAM 12/21/22 03/28/24 History acetaminophen 650 mg 650 mg PO Q12H 02/25/24 03/28/24 History tablet,extended release (Arthritis Pain Relief (acetaminophen) ER) baclofen 20 mg tablet 20 mg PO BID 02/25/24 03/28/24 History duloxetine 60 mg capsule,delayed 60 mg PO QAM 02/25/24 03/28/24 History release folic acid 1 mg tablet 1 mg PO QAM #30 tabs 03/04/24 03/28/24 Rx metoprolol tartrate 25 mg tablet 25 mg PO BID #30 tabs 03/04/24 03/28/24 Rx thiamine HCl (vitamin B1) 100 mg 100 mg PO QAM #30 tabs 03/04/24 03/28/24 Rx tablet diclofenac sodium 1 % topical gel 2 g topical QID 03/28/24 03/28/24 History oxycodone 5 mg capsule 5 mg PO UD PRN pain 03/28/24 03/28/24 History acetaminophen 325 mg tablet 650 mg (2 x 325 mg) PO Q4H #90 tabs 04/11/24 Rx amlodipine 5 mg tablet (Norvasc) 10 mg (2 x 5 mg) PO QAM #30 tabs 04/11/24 Rx aspirin 81 mg tablet,delayed 81 mg PO QAM #30 tabs 04/11/24 Rx release clopidogrel 75 mg tablet 75 mg PO DAILY #30 tabs 04/11/24 Rx cyanocobalamin (vitamin B-12) 1,000 mcg PO QAM #30 tabs 04/11/24 Rx 1,000 mcg tablet famotidine 20 mg tablet 20 mg PO HS #30 tabs 04/11/24 Rx lansoprazole 30 mg delayed 30 mg PO QAM #30 tabs 04/11/24 Rx release,disintegrating tablet (Prevacid SoluTab) levetiracetam 500 mg tablet 500 mg PO BID #60 tabs 04/11/24 Rx (Keppra) magnesium oxide 400 mg (241.3 mg 400 mg PO DAILY #30 tabs 04/11/24 Rx magnesium) tablet metformin 500 mg tablet 500 mg PO BID #60 tabs 04/11/24 Rx multivitamin with folic acid 400 1 tab PO QAM #30 tabs 04/11/24 Rx mcg tablet (Daily-Juani (with folic acid)) rosuvastatin 40 mg tablet (Crestor) 40 mg PO DAILY #30 tabs 04/11/24 Rx trolamine salicylate 10 % topical 1 applic EXT TID PRN Joint and 04/11/24 Rx cream (Myoflex) muscle pain #100 grams valsartan 80 mg tablet (Diovan) 80 mg PO QAM #30 tabs 04/11/24 Rx Hospital Stay Data Consultations 03/28/24 17:06 ED Decision to Admit Stat 03/28/24 18:01 Consult Steam Flattener Routine Consult Nephrology Routine 03/30/24 10:03 Consult Neurology Routine Diagnostic Imagining Performed 03/28/24 13:03 CT head/brain wo con Stat 03/28/24 13:15 CTA head w con [CT angio head w con] Stat CTA neck with con [CT angio neck with con] Stat 03/28/24 17:56 MRI Brain [MR brain wo con] Urgent US Renal Bladder [US renal/blad retro comp] Routine Reviewed imaging, laboratory and diagnostic studies. Pertinent findings as below. Hemoglobin 10.7 Platelets 162 Electrolytes within normal range Creatinine 0.80 TSH 0.875 Hemoglobin A1c 5.8% Pending Results Patient Have Any Pending Studies at Discharge: No Discharge Instructions Given to Patient (Per Discharging Provider) Strongly recommend you stop all beer and alcohol Continue to work with therapies Total Time Total Time Spent Total Time Spent (In Minutes): 41
== END 2024-04-11 11:41 | DRG 56 ==
LOC: ED 12:56 → 1E 16:24 → SUATTDRO 16:24 → 1E 18:10 → 2N 04-02 21:09 → 3E 04-04 00:13